=== PATIENT | female | born 1960 | race Caucasian/White ===

== ENCOUNTER → 2016-07-02 | Outpatient (CLI) | payer OTHER ==
[~2016-07-02] MED LIST: ALPR-412 PO; ATOR-22 PO; BUPR-79 PO; COEN1CAP17 PO; GABA-112 PO; HYDR25TA5 PO; HYOS1TAB PO; LANS30CA12 PO; MISCCAP80 PO; MULTTAB58 PO; NYSS5 PO; OMEGCAP2 PO; POTA20TA16 PO; PRED1SUS3 OPR; VITA1TAB4 PO
[2016-07-02 17:50] LABS: HEMATOCRIT 42.2 % (37-47); MEAN CELL VOLUME 87.2 fL (80-100); MEAN CORPUSCULAR HEMOGLOBIN 28.5 pg (25-34); MEAN CORPUSCULAR HGB CONC 32.7 g/dl (32-36); MEAN PLATELET VOLUME 10.2 fL (7.4-10.4); PLATELET COUNT 279 K/uL (130-400); RED BLOOD COUNT 4.84 M/uL (4.2-5.4); WHITE BLOOD COUNT 6.96 K/uL (4.8-10.8)
[2016-07-02 18:07] LABS: ALT/SGPT 30 U/L (12-78); AST/SGOT 17 U/L (15-37); BLOOD UREA NITROGEN 11 mg/dl (7-18); BUN/CREATININE RATIO 12.8 (10-20); CALCIUM 8.8 mg/dl (8.5-10.1); CARBON DIOXIDE 30 mmol/L (21-32); CHLORIDE 104 mmol/L (98-107); CREATININE 0.87 mg/dl (0.60-1.20); GLUCOSE 90 mg/dl (70-99); POTASSIUM 3.5 mmol/L (3.5-5.1); SODIUM 141 mmol/L (136-145)
[2016-07-02 18:18] LABS: ALKALINE PHOSPHATASE 69 U/L (45-117); CHOLESTEROL 205 mg/dl (0-200); CHOLESTEROL/HDL RATIO 3.7; HDL CHOLESTEROL 55 mg/dl; LDL CHOLESTEROL CALCULATED 124 mg/dl; THYROID STIMULATING HORMONE 0.162 uIu/ml (0.300-4.500); TRIGLYCERIDES 131 mg/dl (0-150); VERY LOW DENSITY LIPOPROT CALC 26 mg/dl
[2016-07-03 07:31] LABS: ESTIMATED AVERAGE GLUCOSE 123 mg/dl; HA1C FLAG Normal (Normal)
== END | disposition home or self-care (01) ==
LOC: C.LABBFT 15:54
PROVIDERS: ATTEND Internal Medicine
DX: E78.5 Hyperlipidemia, unspecified (principal); R73.01 Impaired fasting glucose; E03.9 Hypothyroidism, unspecified; I10 Essential (primary) hypertension

== ENCOUNTER → 2016-08-21 | Outpatient (CLI) | payer OTHER | END | disposition home or self-care (01) | LOC: C.LABBFT 10:09 | PROVIDERS: ATTEND Internal Medicine | DX: E03.9 Hypothyroidism, unspecified (principal) ==

== ENCOUNTER → 2016-12-19 | Outpatient (CLI) | payer OTHER ==
--- NOTE | 2016-12-19 15:49 | MAMMOGRAPHY REPORT ---
BILATERAL DIGITAL SCREENING MAMMOGRAM TOMOSYNTHESIS WITH CAD: 12/19/2016 CLINICAL HISTORY: Routine screening. TECHNIQUE: Breast tomosynthesis in addition to standard 2D mammography was performed. Current study was also evaluated with a Computer Aided Detection (CAD) system. COMPARISON: Comparison is made to exams dated: 11/21/2015 mammogram, 11/17/2014 mammogram, 11/11/2013 dianne mogram, 11/10/2012 mammogram, 10/01/2010 mammogram, and 10/10/2010 mammogram - [facility]. BREAST COMPOSITION: There are scattered areas of fibroglandular density in both breasts. FINDINGS: No suspicious masses, calcifications, or areas of architectural distortion are noted in ei ther breast. There has been no significant interval change compared to prior exams. IMPRESSION: ACR BI-RADS CATEGORY 1: NEGATIVE There is no mammographic evidence of malignancy. A 1 year screening mammogram is recommended. The pa tient will receive written notification of the results. Approximately 10% of breast cancers are not detected with mammography. A negative mammographic report should not delay biopsy if a clinically suggestive mass is present. Miriam Herring M.D. ah/:12/19/2016 15:00:07 Banquet Set Up Person: William FAUSTIN(Zane)(M), [facility] letter sent: Normal 1/2 BI-RADS Code: ACR BI-RADS Category 1: Negative
== END | disposition home or self-care (01) ==
LOC: C.MAMM 14:04
PROVIDERS: ATTEND Internal Medicine
DX: Z12.31 Encounter for screening mammogram for malignant neoplasm of breast (principal)

== ENCOUNTER → 2017-01-05 | Outpatient (CLI) | payer OTHER ==
[2017-01-05 17:32] LABS: BASO % 0.5 %; BASO ABS # 0.04 K/uL (0-0.2); COMPLETE YES; EOS % 2.3 %; HEMATOCRIT 42.1 % (37-47); IG% 0.4 %; LYMPH % 28.1 %; LYMPH ABS # 2.05 K/uL (1.2-3.4); MEAN CORPUSCULAR HEMOGLOBIN 28.6 pg (25-34); MEAN CORPUSCULAR HGB CONC 31.8 g/dl (32-36); MEAN PLATELET VOLUME 9.8 fL (7.4-10.4); MONO % 8.5 %; NEUT % 60.2 %; PLATELET COUNT 279 K/uL (130-400); RED BLOOD COUNT 4.68 M/uL (4.2-5.4)
[2017-01-05 17:41] LABS: ALT/SGPT 25 U/L (12-78); AST/SGOT 16 U/L (15-37); BLOOD UREA NITROGEN 10 mg/dl (7-18); BUN/CREATININE RATIO 11.7 (10-20); CALCIUM 8.8 mg/dl (8.5-10.1); CARBON DIOXIDE 28 mmol/L (21-32); CHLORIDE 105 mmol/L (98-107); CHOLESTEROL 207 mg/dl (0-200); CREATININE 0.88 mg/dl (0.60-1.20); GLUCOSE 89 mg/dl (70-99); POTASSIUM 3.6 mmol/L (3.5-5.1); SODIUM 141 mmol/L (136-145)
[2017-01-05 17:52] LABS: ALKALINE PHOSPHATASE 60 U/L (45-117); CHOLESTEROL/HDL RATIO 3.4; HDL CHOLESTEROL 61 mg/dl; LDL CHOLESTEROL CALCULATED 113 mg/dl; TRIGLYCERIDES 165 mg/dl (0-150); VERY LOW DENSITY LIPOPROT CALC 33 mg/dl
[2017-01-06 06:14] LABS: ESTIMATED AVERAGE GLUCOSE 126 mg/dl; HA1C FLAG Normal (Normal)
== END | disposition home or self-care (01) ==
LOC: C.LABBFT 13:59
PROVIDERS: ATTEND Internal Medicine
DX: E78.5 Hyperlipidemia, unspecified (principal); E03.9 Hypothyroidism, unspecified; R73.01 Impaired fasting glucose

== ENCOUNTER → 2017-02-16 | Outpatient (CLI) | payer OTHER | END | disposition home or self-care (01) | LOC: C.LABBFT 14:00 | PROVIDERS: ATTEND Internal Medicine | DX: E03.9 Hypothyroidism, unspecified (principal) ==

== ENCOUNTER → 2017-03-26 | Outpatient (CLI) | payer OTHER ==
--- NOTE | 2017-03-26 10:19 | DIAGNOSTIC IMAGING REPORT ---
SINUSES MIN 3 VIEWS ROUTINE CLINICAL HISTORY: 56 years-old Female presenting with J01.90 Acute [id number]. TECHNIQUE: 4 views of the sinuses were obtained. COMPARISON: 05/12/[address] from 2014. FINDINGS: No radiographic evidence of paranasal sinus or mastoid air cell opacity. Bony nasal septum midline. Bony orbits normal. Amalgam noted. IMPRESSION: No radiographic evidence of sinus opacification to suggest acute sinusitis. Electronically signed by: Justin Collier M.D. 03/26/2017 10:18 AM Dictated Date/Time: 03/26/2017 10:16 AM
== END | disposition home or self-care (01) ==
LOC: C.RAD1850 10:02
PROVIDERS: ATTEND Physician Assistant Medical
DX: J01.90 Acute sinusitis, unspecified (principal)

== ENCOUNTER → 2017-04-10 | Outpatient (CLI) | payer OTHER ==
[~2017-04-10] MED LIST changes: +POTA-639 PO; -POTA20TA16 PO; +SYN100 PO
== END | disposition home or self-care (01) ==
LOC: C.LABBFT 12:47
PROVIDERS: ATTEND Internal Medicine
DX: R19.7 Diarrhea, unspecified (principal)

== ENCOUNTER → 2017-04-14 | Outpatient (CLI) | payer OTHER ==
[2017-04-14 12:26] LABS: BLOOD UREA NITROGEN 9 mg/dl (7-18); CREATININE 0.93 mg/dl (0.60-1.20)
== END | disposition home or self-care (01) ==
LOC: C.LAB 10:08
PROVIDERS: ATTEND Internal Medicine
DX: I10 Essential (primary) hypertension (principal)

== ENCOUNTER 2017-06-01 07:14 | Emergency (ER) | payer OTHER ==
[~2017-06-01] VITALS: Ht 165.1 cm; Wt 68.4 kg
[~2017-06-01 07:14] MED LIST changes: -ALPR-412 PO; -ATOR-22 PO; -BUPR-79 PO; -COEN1CAP17 PO; -GABA-112 PO; -HYDR25TA5 PO; -HYOS1TAB PO; -LANS30CA12 PO; -MISCCAP80 PO; -MULTTAB58 PO; -OMEGCAP2 PO; -POTA-639 PO; -SYN100 PO; -VITA1TAB4 PO
[2017-06-01 07:16] VITALS: Ht 165.1 cm; Wt 68.4 kg
[2017-06-01] MEDS ORDERED: SYN100 PO (07:48)
[2017-06-01] MEDS ORDERED: ALBUT/IPRATROP 3MG/0.5MG NEB 3 ML VIAL INH STA (08:03)
[2017-06-01] MEDS ORDERED: SODIUM CHLORIDE 0.9% 1000ML 1,000 ML IV STA (08:03)
[2017-06-01] MEDS ORDERED: ONDANSETRON INJ 2 MG/ML 2 ML VIAL IV STA (08:03)
[2017-06-01 08:26] LABS: HEMATOCRIT 42.3 % (37-47); HEMOGLOBIN 14.1 g/dL (12.0-16.0); MEAN CELL VOLUME 87.8 fL (80-100); MEAN CORPUSCULAR HEMOGLOBIN 29.3 pg (25-34); MEAN CORPUSCULAR HGB CONC 33.3 g/dl (32-36); MEAN PLATELET VOLUME 9.7 fL (7.4-10.4); PLATELET COUNT 176 K/uL (130-400); RED CELL DISTRIBUTION WIDTH CV 13.1 % (11.5-14.5); RED CELL DISTRIBUTION WIDTH SD 42.1 fL (36.4-46.3); WHITE BLOOD COUNT 7.11 K/uL (4.8-10.8)
--- NOTE | 2017-06-01 08:38 | DIAGNOSTIC IMAGING REPORT ---
CHEST 2 VIEWS ROUTINE CLINICAL HISTORY: COUGH, FEVER COMPARISON STUDY: 06/16/2014 FINDINGS: The cardiac and mediastinal contours are normal. There is no evidence of focal pulmonary consolidation. There is no evidence of failure. No pleural effusions are visualized.[ IMPRESSION: No active disease in the chest. Electronically signed by: Jose Ng M.D. 06/01/2017 8:37 AM Dictated Date/Time: 06/01/2017 8:37 AM
[2017-06-01 08:43] LABS: CALCIUM 8.3 mg/dl (8.5-10.1); CREATININE 0.91 mg/dl (0.60-1.20); POTASSIUM 3.2 mmol/L (3.5-5.1)
[2017-06-01 08:52] LABS: INFLUENZA B ANTIGEN Neg for Influ B (NEG)
[2017-06-01 09:11] VITALS: BP 127/73; PULSE 63; TEMP 36.6; O2SAT 99
--- NOTE | 2017-06-01 09:13 | EMERGENCY ROOM VISIT NOTE ---
History First contact with patient: 07:25 Chief Complaint: FLU LIKE SX Stated Complaint: FEVER,CHILLS,SOB,COUGHING History of Present Illness Patient is a 56-year-old white female who presents emergency department for evaluation of influenza-like symptoms that started about 4-5 days ago. She reports that she developed generalized body and muscle aches, sore throat, fatigue and subjective fever and chills, cough and congestion last week. She reports that she is nauseous and anorexic but has not been vomiting. She was seen at a walk-in clinic the following day, was clinically diagnosed with pneumonia after having a negative influenza swab, and she was placed on Avelox. She reports that she is taking the antibiotics as prescribed, but her symptoms have been worsening. Today she felt a little dizzy with position changes. She has been taking Tylenol, and had some leftover cough syrup with codeine, with minimal relief of her symptoms. She reports that her has been ill with similar symptoms and is also here being evaluated today. She has been in contact with her grandchildren who were sick with strep and influenza. She is a former smoker. She reports a cough that is productive of scant sputum , but denies any chest pain or shortness of breath. She does have an albuterol inhaler at home but has not been taking it. Review of Systems Review of systems as per HPI. All other systems reviewed were negative. 10 systems reviewed. Past Medical/Surgical History Medical Problems: (1) Anxiety (2) Depressive Disorder Nec (3) Esophageal Reflux (4) Hyperlipidemia, Unspecified (5) Hypertension Nos Surgical Problems: (1) History of cataract extraction Electronic medical records are reviewed and summarized as above/below. See Problem List. Social History Smoking Status: Former Smoker Marital Status: Housing Status: lives with family Current/Historical Medications Scheduled Atorvastatin (Lipitor), 20 MG PO HS Bupropion (Wellbutrin Sr), 150 MG PO BID Coenzyme Q10 (Ubidecarenone) (Co Q 10), 100 MG PO QAM Gabapentin (Neurontin), 100 MG PO BID Hydrochlorothiazide (Hydrochlorothiazide), 25 MG PO QAM Lansoprazole (Prevacid), 30 MG PO QAM Levothyroxine Sodium (Synthroid), 100 MCG PO QAM Multiple Vitamin (Multivitamin), 1 TAB PO QAM [place]-3 Fatty Acids (Fish Oil), 1 CAP PO QAM Potassium Ext Rel (Klor-Con), 20 MEQ PO QAM Probiotic Product (Probiotic), 1 CAP PO QAM Vitamin E (Vitamin E), 400 INTUNIT PO QAM Scheduled PRN Alprazolam (Alprazolam), 0.25 MG PO HS PRN for Anxiety Hyoscyamine Sulfate (Levsin), 0.125 MG PO DAILY PRN for SPASM Physical Exam Vital Signs Date Time Temp Pulse Resp B/P (MAP) Pulse Ox O2 Delivery O2 Flow Rate FiO2 06/01/17 09:11 36.6 63 18 127/73 99 06/01/17 08:19 71 20 112/65 100 06/01/17 07:16 36.7 95 20 119/73 99 Room Air Physical Exam MENTAL STATUS: Patient is an ill although nontoxic appearing 56-year-old white female who is awake and alert and in no acute distress. HEAD: Atraumatic, without temporal or scalp tenderness. EYES: PERRL, EOMI, no discharge or injection. EARS: Tympanic membranes intact, not inflamed, have normal contour. External canals clear. NOSE: Nares patent, turbinates edematous and boggy with clear rhinorrhea. MOUTH: Mucous membranes moist, no lesions, tongue and gums appear normal. THROAT: No pharyngeal injection, exudates, or tonsillar hypertrophy. Airway is patent. NECK: Supple, nontender, no lymphadenopathy. HEART: Regular rate and rhythm without murmurs, ectopy, gallops, or rubs. LUNGS: Clear to auscultation and breath sounds equal, no wheezes, rales, or rhonchi. ABDOMEN: Bowel sounds are present. Abdomen is soft, nontender and nondistended. SKIN: Normal. NEUROLOGICAL: Sensory and motor functions grossly intact. Normal gait. Medical Decision & Procedures ER Provider Diagnostic Interpretation: CHEST 2 VIEWS ROUTINE CLINICAL HISTORY: COUGH, FEVER COMPARISON STUDY: 06/16/2014 FINDINGS: The cardiac and mediastinal contours are normal. There is no evidence of focal pulmonary consolidation. There is no evidence of failure. No pleural effusions are visualized. IMPRESSION: No active disease in the chest. Laboratory Results 06/01/17 08:12 06/01/17 08:12 Test 06/01/17 08:05 06/01/17 08:12 Influenza Type A Antigen POS for Influ A (NEG) Influenza Type B Antigen Neg for Influ B (NEG) Red Blood Count 4.82 M/uL (4.2-5.4) Mean Corpuscular Volume 87.8 fL (80-100) Mean Corpuscular Hemoglobin 29.3 pg (25-34) Mean Corpuscular Hemoglobin Concent 33.3 g/dl (32-36) RDW Standard Deviation 42.1 fL (36.4-46.3) RDW Coefficient of Variation 13.1 % (11.5-14.5) Mean Platelet Volume 9.7 fL (7.4-10.4) Anion Gap 9.0 mmol/L (3-11) Est Creatinine Clear Calc Drug Dose 60.6 ml/min Estimated GFR () 80.6 Estimated GFR (Non- 69.5 BUN/Creatinine Ratio 9.8 (10-20) Calcium Level 8.3 mg/dl (8.5-10.1) Medications Administered Medications (Trade) Dose Ordered Sig/Rosemary Route Start Time Stop Time Status Last Admin Dose Admin Sodium Chloride 1,000 ml @ 999 mls/hr Q1H1M STAT IV 06/01/17 08:03 06/01/17 09:03 DC 06/01/17 08:16 999 MLS/HR Ondansetron HCl (Zofran Inj) 4 mg NOW STAT IV 06/01/17 08:03 06/01/17 08:05 DC 06/01/17 08:16 4 MG Albuterol/ Ipratropium (Duoneb) 3 ml NOW STAT INH 06/01/17 08:03 06/01/17 08:05 DC 06/01/17 08:17 3 ML ED Course The patient was seen and examined as above. Old records were reviewed. IV lock was initiated she was hydrated with a liter of normal saline solution. She is medicated with Zofran 4 mg IV for nausea. She was given a DuoNeb treatment. CBC, BMP and influenza swab were collected. Chest x-ray was performed. Laboratory studies did not reveal a leukocytosis, no anemia or significant electrolyte imbalance which required correction. Influenza swab was positive for influenza A. Chest x-ray was clear. The patient was reassessed. Conservative care measures were discussed regarding the positive influenza swab. She has already been on antibiotic for several days and was encouraged to finish this. She reports that she has an albuterol inhaler at home and was advised to continue the inhaler for cough. She is outside of the window for which Tamiflu is appropriate. She was encouraged to follow-up with her primary care provider if her symptoms are not improving. Differential diagnoses also entertained included otitis media, sinusitis, bronchitis, pneumonia, COPD exacerbation, among others. Medical Decision See ED Course. Medication Reconcilliation Current Medication List: was personally reviewed by me Blood Pressure Screening Patient's blood pressure: Normal blood pressure Blood pressure disposition: Did not require urgent referral Impression Primary Impression: Influenza A Departure Information Referrals Clemente Enrique M.D. (PCP) Patient Instructions My [facility] Additional Instructions Finish your antibiotics as previously prescribed. Acetaminophen(Tylenol) may be used for fever or pain. Use 1000mg every six hours as needed. Avoid using more than 3000mg in a 24 hour period. (AND/OR) Ibuprofen(Motrin, Advil) may be used for fever or pain. Use 600mg every six hours as needed. Take with food. Avoid using more than 2400mg in a 24 hour period. Do not use 2400mg per day for more than three consecutive days without physician direction. Prolonged inappropriate use can lead to stomach upset or ulcers. Pseudoephedrine(Sudaphed): 30-60mg every 6 hours as needed for nasal congestion. Do not take this with other stimulant products or supplements. Guaifenesin (Mucinex) : Take 1200 mg every 12 hours as needed for nasal/chest congestion, to help thin secretions. Albuterol Inhaler: Take 2 puffs every 4 hours for the next 5-7 days, then as needed. Use inhalers as prescribed. Rest and drink plenty of fluids. Controlling your fever with Tylenol and Ibuprofen as above will make you feel better. Wash your hands after nose blowing, sneezing, or coughing. Most germs are spread through contact, therefore improper hygiene may result in your close contacts and loved ones becoming ill just like you. Continue current medications. Return to the ER for severe headache, neck stiffness, chest pain, difficulty breathing, fevers, vomiting, worsening of your condition, or as needed. Follow up with your primary physician this week for a recheck of your current condition.
--- NOTE | 2017-06-01 09:18 | EMERGENCY ROOM VISIT NOTE ---
ED Visit Note First contact with patient: 07:25 Staff note: I have reviewed the Patients chart and have discussed this case with my PA. I generally agree with the ED note and findings.
[2017-06-01] MEDS ORDERED: BUPR-79 PO (09:21)
[2017-06-01] MEDS ORDERED: GABA-112 PO (09:21)
[2017-06-01] MEDS ORDERED: LANS30CA12 PO (10:42)
[2017-06-01] MEDS ORDERED: POTA20TA16 PO (10:55)
[2017-06-01] MEDS ORDERED: HYOS1TAB PO (10:55)
[2017-06-01] MEDS ORDERED: VITA1TAB4 PO (10:56)
[2017-06-01] MEDS ORDERED: OMEGCAP2 PO (10:56)
[2017-06-01] MEDS ORDERED: ALPR-412 PO (10:56)
[2017-06-01] MEDS ORDERED: COEN1CAP17 PO (10:56)
[2017-06-01] MEDS ORDERED: HYDR25TA5 PO (10:56)
[2017-06-01] MEDS ORDERED: MULTTAB58 PO (10:56)
[2017-06-01] MEDS ORDERED: ATOR-22 PO (10:56)
[2017-06-01] MEDS ORDERED: MISCCAP80 PO (10:56)
== END 2017-06-01 09:30 | disposition home or self-care (01) ==
LOC: C.EDB 07:16
DX: J10.1 Influenza due to other identified influenza virus with other respiratory manifestations (principal); F41.9 Anxiety disorder, unspecified; F32.9 Major depressive disorder, single episode, unspecified; K21.9 Gastro-esophageal reflux disease without esophagitis; I10 Essential (primary) hypertension; E78.5 Hyperlipidemia, unspecified; Z87.891 Personal history of nicotine dependence; Z98.49 Cataract extraction status, unspecified eye

== ENCOUNTER → 2017-07-09 | Outpatient (CLI) | payer OTHER ==
[~2017-07-09] MED LIST changes: +ALPR-412 PO; +ATOR-22 PO; +BUPR-79 PO; +COEN1CAP17 PO; +GABA-112 PO; +HYDR25TA5 PO; +HYOS1TAB PO; +LANS30CA12 PO; +MISCCAP80 PO; +MULTTAB58 PO; -NYSS5 PO; +OMEGCAP2 PO; +POTA20TA16 PO; -PRED1SUS3 OPR; +SYN100 PO; +VITA1TAB4 PO
[2017-07-09 16:33] LABS: BASO % 1.3 %; BASO ABS # 0.08 K/uL (0-0.2); EOS ABS # 0.12 K/uL (0-0.5); HEMATOCRIT 39.9 % (37-47); HEMOGLOBIN 13.1 g/dL (12.0-16.0); IG# 0.01 K/uL (0.00-0.02); LYMPH % 34.4 %; LYMPH ABS # 2.06 K/uL (1.2-3.4); MEAN CELL VOLUME 88.1 fL (80-100); MEAN CORPUSCULAR HEMOGLOBIN 28.9 pg (25-34); MEAN CORPUSCULAR HGB CONC 32.8 g/dl (32-36); MONO ABS # 0.48 K/uL (0.11-0.59); NEUT % 54.1 %; NEUT ABS # 3.24 K/uL (1.4-6.5); PLATELET COUNT 237 K/uL (130-400); RED CELL DISTRIBUTION WIDTH CV 13.2 % (11.5-14.5); RED CELL DISTRIBUTION WIDTH SD 42.7 fL (36.4-46.3); WHITE BLOOD COUNT 5.99 K/uL (4.8-10.8)
[2017-07-09 16:50] LABS: ALBUMIN 3.4 gm/dl (3.4-5.0); ALT/SGPT 34 U/L (12-78); AST/SGOT 25 U/L (15-37); BLOOD UREA NITROGEN 10 mg/dl (7-18); CALCIUM 9.2 mg/dl (8.5-10.1); CARBON DIOXIDE 31 mmol/L (21-32); CREATININE 0.87 mg/dl (0.60-1.20); GLUCOSE 85 mg/dl (70-99); POTASSIUM 3.9 mmol/L (3.5-5.1); SODIUM 139 mmol/L (136-145)
[2017-07-09 17:01] LABS: ALKALINE PHOSPHATASE 67 U/L (45-117); CHOLESTEROL 135 mg/dl (0-200); LDL CHOLESTEROL CALCULATED 57 mg/dl; TOTAL PROTEIN 7.1 gm/dl (6.4-8.2)
[2017-07-10 06:29] LABS: HEMOGLOBIN A1C 5.9 % (4.5-5.6)
== END | disposition home or self-care (01) ==
LOC: C.LABBFT 13:46
PROVIDERS: ATTEND Internal Medicine
DX: E78.5 Hyperlipidemia, unspecified (principal); E03.9 Hypothyroidism, unspecified; R73.01 Impaired fasting glucose

== ENCOUNTER 2023-03-22 10:12 | Inpatient (IN) ==
[2023-03-22] MEDS ORDERED: SODIUM CHLORIDE 0.9% 500 ML IV STA (10:56)
[2023-03-22] MEDS ORDERED: MoRPHine SULFATE 4 MG/ML 1 ML CARP\\VIAL IV STA ×2 (11:04→13:24)
[2023-03-22] MEDS ORDERED: ONDANSETRON INJ 2 MG/ML 2 ML VIAL IV STA (11:04)
--- NOTE | 2023-03-22 11:07 | Emergency Department Note ---
Impression & Plan Abdominal pain Admission ED Provider Note HPI: History obtained from patient. The patient is a 62-year-old female who presents emergency department chief complaint of abdominal pain. Patient was seen here in the ED yesterday for diarrhea and some atypical chest discomfort, she was ultimately discharged home following an unremarkable workup. Patient states that last night she developed some abdominal pain in the upper abdomen that at times was relatively severe. Patient states she has had similar pain in the past but not quite to this degree/severity. Patient denies any vomiting, states that her diarrhea has actually improved since yesterday. She has stopped taking the Paxlovid and Bactrim that was prescribed to her over concern for the side effect of diarrhea. On arrival here to the ED the patient is hemodynamically stable, she is in no acute distress on my initial assessment, she is saturating well on room air, she is afebrile on arrival. ROS: - Per HPI Differential Diagnosis: Acute pancreatitis, acute gastritis, peptic ulcer disease, acute cholecystitis, choledocholithiasis, abdominal aortic dissection, acute coronary syndrome, amongst other potential pathologies. *Outpatient medications and allergy history reviewed. PE: General: Alert HEENT: Normocephalic, trachea midline Eyes: Extraocular eye movement is intact, no scleral erythema Pulmonary: Clear to auscultation bilaterally, no wheezing Cardio: Regular rate and rhythm GI: Abdomen is soft to palpation, there is mild tenderness over the epigastric area to palpation without guarding or rigidity : No suprapubic tenderness MSK: No evidence of trauma or malformation of the extremities, no edema Skin: No evidence of rash Neuro: Alert, no focal deficits Psychiatric: Cooperative INDEPENDENT INTERPRETATIONS: playground monitor: (As interpreted by myself): - An order was placed for continuous cardiac monitoring - Patient was noted to be in sinus rhythm with a rate of 70 EKG #1 (As interpreted by myself): Rate: 69 Rhythm: Normal sinus rhythm Intervals: Within normal limits ST changes: No ST elevation Time: 1109 EKG #2 (As interpreted by myself): Rate: 68 Rhythm: Normal sinus rhythm Intervals: Within normal limits ST changes: No ST elevation Time: 1423 Chest x-ray: (As interpreted by myself): No acute process Interventions provided in ED: -IV morphine, IV Zofran, GI cocktail Medical Decision Making: IV was established and lab work obtained, patient was placed on playground monitor. Lab work shows no leukocytosis, hemoglobin is stable at 11.8, platelet count is normal, CMP does not show any critical findings, no evidence of transaminitis, bilirubin is normal, lipase is 10, troponin is negative x 1. CT imaging of the abdomen pelvis was obtained that does not show any evidence of any acute abnormalities within the abdomen or pelvis. There is mention of kidney lesion of which the patient is informed and aware of, states she has an upcoming MRI of her kidney for further diagnostic evaluation. Despite morphine and Zofran here in the ED patient states she still has epigastric pain, she was given a GI cocktail and this unfortunately worsened her pain. Patient was therefore given another dose of morphine, she states her pain is improved but still present. Repeat EKG was obtained that again does not show any evidence of any acute ischemic changes per my interpretation. Repeat troponin remains negative. I discussed all the above findings with the patient, at this time given her ongoing pain she will be admitted for pain control to the hospitalist service. Case was discussed with the on-call midlevel provider, Jose Antonio Brito PA-C, and the patient was placed for admission to the hospitalist service for further care. Consultants/Discussions held with other healthcare providers: -Jose Antonio Brito PA-C, [facility] hospitalist service Disposition discussion held by myself with: -Patient Diagnosis: 1. Abdominal pain, acute, intractable 2. COVID-19 infection, subacute Disposition: Admission Wolfgang Grubbs DO Emergency Medicine Past Med/Surg History Medical History Encounter for pre-operative examination History of Helicobacter pylori infection Hx of Clostridium difficile infection Hx of diverticulitis of colon History of COVID-19 Hx of melanoma of skin Pulmonary embolism Sciatica COPD (chronic obstructive pulmonary disease) Mild reactive airways disease Allergic rhinitis Depression with anxiety Esophageal reflux Fibromyalgia Hypertension Irritable bowel syndrome Hypothyroidism Hyperlipidemia History of asthma Surgical History History of esophagogastroduodenoscopy (EGD) Hx of cataract extraction Hx of melanoma excision S/P dilation and curettage History of cryosurgery S/P laparoscopic procedure History of colonoscopy (10/12/19) S/P tonsillectomy S/P sinus surgery S/P SUMAN-BSO S/P laparoscopic cholecystectomy S/P appendectomy Family History Mother Diabetes Father Heart disease Other Asthma Cancer Gallbladder disease Hypertension Stroke Denies family history of Ovarian cancer Myocardial infarction Breast cancer Colorectal cancer Colonic polyp Uterine cancer Social History Smoking Status: Never smoker Tobacco Type: Cigarettes Age Started Using Tobacco: 18; Age Quit Using Tobacco: 58; Second Hand Exposure: Yes (in the past); Do You Dip or Chew Tobacco: No; Hx Alcohol Use: No Hx Substance Use: No Preferred Language: Yoruba Communication Ability: Effective Visual Impairment: No Limitations Hearing Ability: Normal Vice President [employer] Required: No Beliefs That Will Affect Care: None marital status: Current Living Situation: Spouse current occupational status: disabled Feels Safe at Home: Yes Childhood Exposure to Second-Hand Smoke: Yes Dental Care, Regularly: Yes Seatbelt Use: always Sunscreen Use: Yes Do you think of yourself as: straight/heterosexual Sexual Activity: has been sexually active within the last 12 months Assistive Devices: Denture - Upper Allergies Allergies Allergy/AdvReac Type Severity Reaction Status Date / Time vilanterol Allergy Severe Swelling Verified 03/19/23 15:43 [From Breo Ellipta] and GI Upset bacitracin Allergy Intermediate Hives Verified 03/19/23 15:43 [From Neosporin ([id number])] neomycin Allergy Intermediate Hives Verified 03/19/23 15:43 [From Neosporin ([id number])] polymyxin B Allergy Intermediate Hives Verified 03/19/23 15:43 [From Neosporin ([id number])] olmesartan AdvReac Intermediate Diarrhea Verified 03/19/23 15:43 amoxicillin [From Augmentin] AdvReac Unknown CAUSED Verified 03/19/23 15:43 C-DIFF clavulanic acid AdvReac Unknown CAUSED Verified 03/19/23 15:43 [From Augmentin] C-DIFF Home Meds Home Medications Medication Instructions Recorded Confirmed coenzyme Q10 100 mg tablet 100 mg PO QAM 09/06/18 03/22/23 vitamin E 268 mg (400 unit) capsule 400 unit PO QAM 09/06/18 03/21/23 lactobacillus combination no.4 3 3,000 mmu cells PO QAM 02/16/19 03/22/23 billion cell capsule (Probiotic) azelastine 205.5 mcg (0.15 %) 2 spray intranasal BID 04/12/19 03/22/23 nasal spray ascorbate calcium (vitamin C) 500 1,000 mg PO QAM PRN Other 08/06/20 03/22/23 mg tablet multivitamin (Daily Multi-Vitamin 1 tab PO QAM 08/06/20 03/22/23 tablet) budesonide-formoterol HFA 80 2 inh inhalation BID 06/24/22 03/22/23 mcg-4.5 mcg/actuation aerosol inhaler (Symbicort) omega-3 fatty acids 1,000 mg 1,000 mg PO QAM 06/24/22 03/22/23 capsule hydrochlorothiazide 25 mg tablet 25 mg PO QAM 12/11/22 03/22/23 bismuth subsalicylate 262 mg 524 mg PO QID PRN UPSET STOMACH 12/29/22 03/22/23 tablet (Pepto-Bismol) levocetirizine 5 mg tablet 5 mg PO QAM 02/13/23 03/22/23 levothyroxine 88 mcg tablet 88 mcg PO QAM 02/13/23 03/22/23 potassium chloride 20 mEq 30 meq PO QAM 02/13/23 03/21/23 tablet,extended release(part/cryst) (Klor-Con M) propranolol 60 mg capsule,24 60 mg PO HS 02/13/23 03/22/23 hr,extended release mupirocin 2 % topical ointment 1 applic topical BID PRN Other 03/21/23 03/22/23 tamsulosin 0.4 mg capsule 0.4 mg PO .AFTERNOON 03/21/23 03/22/23 amitriptyline 10 mg tablet 10 mg PO HS 03/22/23 03/22/23 celecoxib 100 mg capsule 100 mg PO BID PRN Pain 03/22/23 03/22/23 cholestyramine-aspartame 4 gram 1 ea PO TID 03/22/23 03/22/23 oral powder (Cholestyramine Light) Previous Rx's Medication Instructions Recorded inhalational spacing device #1 ea 09/22/18 (Vortex Holding Chamber) albuterol sulfate 90 mcg/actuation 2 puff inhalation Q4H PRN 05/19/22 aerosol inhaler (Ventolin HFA) Shortness Of Breath Or Wheezing #18 grams bupropion HCl 150 mg tablet,12 hr 150 mg PO BID #180 ea 07/11/22 sustained-release fluticasone propionate 50 1 spray intranasal DAILY 30 days 07/22/22 mcg/actuation nasal #48 grams spray,suspension pantoprazole 40 mg tablet,delayed 40 mg PO BID #180 tabs 09/09/22 release atorvastatin 20 mg tablet 20 mg PO HS #90 tabs 11/13/22 estradiol 0.01% (0.1 mg/gram) 0.25 appful vaginal DAILY #42.5 02/12/23 vaginal cream grams gabapentin 100 mg capsule 100 mg PO TID #270 caps 03/09/23 molnupiravir 200 mg capsule (EUA) 800 mg (4 x 200 mg) PO Q12H 5 days 03/19/23 (Lagevrio) #40 caps sulfamethoxazole 800 1 tab PO BID 10 days #20 tabs 03/19/23 mg-trimethoprim 160 mg tablet (Bactrim DS) Results & Data (ED) Vital Signs Vital Signs - 24 hr 03/22/23 10:21 03/22/23 12:00 03/22/23 12:11 Temperature 36.8 C Temperature Source Temporal Artery Scan Pulse Rate 74 64 Pulse Rate [Apical] 66 Respiratory Rate 18 18 Blood Pressure 128/68 Blood Pressure [Right Arm] 131/71 Blood Pressure Mean 88 Blood Pressure Mean [Right Arm] 91 Pulse Oximetry 96 99 Oxygen Delivery Method Room Air Room Air Sepsis Recent Fever Within 48 Hours No Sepsis New/Unexplained Change in Mental Status No Sepsis Action Taken by Nursing No Action Required Laboratory Data 03/22/23 11:18 03/22/23 11:18 Lab Results 03/22/23 03/22/23 Range/Units 11:18 14:24 WBC 6.90 (4.8-10.8) K/ul RBC 4.27 (4.20-5.40) M/uL Hgb 11.8 L (12.0-16.0) g/dl Hct 37.3 (37.0-47.0) % MCV 87.4 (80.0-100.0) fL MCH 27.6 (25.0-34.0) pg MCHC 31.6 L (32.0-36.0) g/dL RDW Std Deviation 43.7 (36.4-46.3) fL RDW Coeff of Sánchez 13.6 (11.5-14.5) % Plt Count 269 (130-400) K/uL MPV 9.5 (9.4-12.4) fL Immature Gran % (Auto) 0.4 % Neut % (Auto) 65.9 % Lymph % (Auto) 25.7 % [place] % (Auto) 5.9 % Eos % (Auto) 1.4 % Baso % (Auto) 0.7 % Neut # (Auto) 4.54 (1.40-6.50) K/uL Lymph # (Auto) 1.77 (1.20-3.40) K/uL [place] # (Auto) 0.41 (0.11-0.59) K/uL Eos # (Auto) 0.10 (0.00-0.50) K/uL Baso # (Auto) 0.05 (0.00-0.20) K/uL Immature Gran # (Auto) 0.03 (0.01-0.20) K/uL PT 11.5 (9.0-12.0) Seconds INR 1.1 (0.9-1.1) Sodium 140 (136-145) mmol/L Potassium 3.6 (3.5-5.1) mmol/L Chloride 105 (98-107) mmol/L Carbon Dioxide 29 (21-32) mmol/L Anion Gap 6 (3-11) BUN 6 (6-23) mg/dl Creatinine 0.70 (0.6-1.2) mg/dl Est Cr Clr Drug Dosing 82.9 ml/min Est GFR ( Amer) 106.1 ml/min Est GFR (Non-Af Amer) 91.6 ml/min BUN/Creatinine Ratio 8.6 L (10-20) Glucose 113 H (70-99(Fasting)) mg/dl Calcium 8.8 (8.6-10.3) mg/dl Total Bilirubin 0.4 (0.2-1.0) mg/dl AST 17 (13-39) U/L ALT 17 (7-52) U/L Alkaline Phosphatase 58 (34-104) U/L Troponin I High Sens 2.7 3.6 (0-14) pg/ml Total Protein 6.9 (6.0-8.3) gm/dl Albumin 3.7 (3.4-5.0) gm/dl Globulin 3.2 (2.5-4.0) gm/dl Albumin/Globulin Ratio 1.2 (0.9-2) Lipase 10 L (11-82) U/L Administered Medications Discontinued Medications Al Hydrox/Mg Hydrox/Simethicone (Aluminum/Magnesium Susp 30 Ml Udc) 30 ml PO NOW STA Stop: 03/22/23 13:25 Last Admin: 03/22/23 13:36 Dose: 30 ml Documented By: JANI Sodium Chloride (Nss) 500 mls @ 999 mls/hr IV .Q31M STA Stop: 03/22/23 11:26 Last Infusion: 03/22/23 12:08 Dose: Infused Documented By: Admin: 03/22/23 11:15 Dose: 999 mls/hr Documented By: JANI Ioversol (Optiray 320 500ml) 81 ml IV ONCE ONE Stop: 03/22/23 12:42 Last Admin: 03/22/23 12:42 Dose: 81 ml Documented By: CARLOS A Morphine Sulfate (Morphine Sulfate 4 Mg/Ml 1 Ml Carp\Vial) 4 mg IV NOW STA Stop: 03/22/23 11:05 Last Admin: 03/22/23 11:16 Dose: 4 mg Documented By: JANI Morphine Sulfate (Morphine Sulfate 4 Mg/Ml 1 Ml Carp\Vial) 4 mg IV NOW STA Stop: 03/22/23 13:25 Last Admin: 03/22/23 13:36 Dose: 4 mg Documented By: JANI Ondansetron HCl (Ondansetron Inj 2 Mg/Ml 2 Ml Vial) 4 mg IV NOW STA Stop: 03/22/23 11:05 Last Admin: 03/22/23 11:15 Dose: 4 mg Documented By: JANI Ondansetron HCl (Ondansetron Home Pack 4mg Od Tab) 1 each PO NOW ONE Stop: 03/22/23 13:18 Last Admin: 03/22/23 14:27 Dose: Not Given Documented By: JANI Imaging Data Radiologist's Impression: Chest X-Ray 03/22/23 10:56 XR chest 1V portable HISTORY: 62 years-old Female Chest pain, nonspecific COMPARISON: 03/21/2023 TECHNIQUE: AP view of the chest FINDINGS: Cardiomediastinal and hilar silhouettes are unchanged. Atherosclerosis of the aorta. No pneumothorax, pleural effusion or airspace consolidation. Bones appear grossly intact. Degenerative changes of the shoulders and spine. IMPRESSION: No acute process. ACT 112: Negative or not required by law. The above report was generated using voice recognition software. It may contain grammatical, syntax or spelling errors. Electronically signed by: Chu Hubbard M.D. 03/22/2023 11:46 AM Abdomen/Pelvis CT 03/22/23 10:[address] WITH IV CONTRAST CT DOSE: 1023.84 mGy.cm HISTORY: Acute onset abdominal pain with diarrhea abd pain, diarrhea TECHNIQUE: Multiaxial CT images of the abdomen and pelvis were performed following the IV administration of 81 cc of Optiray, A dose lowering technique was utilized adhering to the principles of ALARA. COMPARISON STUDY: 02/13/2023 FINDINGS: Clear lung bases. No free air. Unremarkable spleen, pancreas and adrenal glands. Cholecystectomy with persistent biliary ductal dilation. The common bile duct measures 1.4 cm. Patent portal vein. No hepatic mass lesions. Mild cortical thinning of the kidneys. 7 mm nonobstructing calculus in the inferior pole left kidney. No ureteral calculi or hydronephrosis. Indeterminate 1.1 cm lesion of the superior pole right kidney again noted with Hounsfield unit of 120. Decompressed urinary bladder with wall thickening. Hysterectomy. Pelvic floor relaxation. Atherosclerosis of the aorta. No lymphadenopathy. No bowel obstruction or bowel wall thickening. Colonic diverticulosis. Appendectomy. The more caudal soft tissues. No acute fracture. IMPRESSION: 1. No acute intra-abdominal or intrapelvic abnormality. 2. 1.1 cm indeterminate lesion of the right kidney again noted, possibly a small renal cell carcinoma. 3. Nonobstructing left nephrolithiasis. 4. Colonic diverticulosis. 5. Additional findings as above. ACT 112: Negative or not required by law. The above report was generated using voice recognition software. It may contain grammatical, syntax or spelling errors. Electronically signed by: Chu Hubbard M.D. 03/22/2023 1:00 PM Discharge Plan Visit Data Chief Complaint: Abdominal Pain Stated Complaint: ABDOMINAL PAIN, NAUSEA ED Provider: Wolfgang Grubbs Discharge Problem: Abdominal pain Patient Disposition: Home - Self-Care Condition: Good Discharge Instructions Radha/Other Patient Handouts: Abdominal Pain Activity Restrictions/Additional Instructions: Please follow-up with your primary care doctor in 2 to 3 days for reassessment. Please return to the emergency room if you have any new or worsening symptoms. Forms Stand Alone Forms: My [facility], Important Visit Information Prescriptions Prescriptions: No Action albuterol sulfate [Ventolin HFA] 90 mcg/actuation HFA aerosol inhaler 2 puff inhalation Q4H PRN (Reason: Shortness Of Breath Or Wheezing) Qty: 18 5RF bupropion HCl 150 mg tablet sustained-release 12 hr 150 mg PO BID Qty: 180 3RF fluticasone propionate 50 mcg/actuation spray,suspension 1 spray intranasal DAILY 30 Days Qty: 48 3RF Rx Instructions: 1 SPRAY IN EACH NOSTRIL DAILY pantoprazole 40 mg tablet,delayed release (DR/EC) 40 mg PO BID Qty: 180 3RF atorvastatin 20 mg tablet 20 mg PO HS Qty: 90 3RF estradiol 0.01 % (0.1 mg/gram) cream 0.25 appful vaginal DAILY Qty: 42.5 2RF Rx Instructions: Use daily for 14 days; use three times a week for 14 days; use 2-3 times a week after gabapentin 100 mg capsule 100 mg PO TID Qty: 270 3RF Lagevrio (EUA) 200 mg capsule 800 mg PO Q12H 5 Days Qty: 40 0RF sulfamethoxazole-trimethoprim [Bactrim DS] 800-160 mg tablet 1 tab PO BID 10 Days Qty: 20 0RF hydrochlorothiazide 25 mg tablet 25 mg PO QAM (DME) Vortex Holding Chamber spacer See Dose Instructions .ROUTE .MEDSUPPLY Qty: 1 0RF Dose Instruction: As directed Rx Instructions: As directed ascorbate calcium (vitamin C) 500 mg tablet 1,000 mg PO QAM PRN (Reason: Other) multivitamin [Daily Multi-Vitamin] Tablet 1 tab PO QAM vitamin E 400 unit Capsule 400 unit PO QAM coenzyme Q10 100 mg Tablet 100 mg PO QAM Probiotic 3 billion cell capsule 3,000 mmu cells PO QAM Rx Instructions: with meals azelastine 0.15 % (205.5 mcg) spray,non-aerosol 2 spray INTNAS BID Rx Instructions: administer into each nostril propranolol 60 mg capsule,extended release 24 hr 60 mg PO HS potassium chloride [Klor-Con M20] 20 mEq tablet,ER particles/crystals 30 meq PO QAM levothyroxine 88 mcg tablet 88 mcg PO QAM levocetirizine 5 mg tablet 5 mg PO QAM Rx Instructions: TAKE 1 TABLET BY MOUTH EVERY DAY FOR ALLERGY SYMPTOMS amitriptyline 10 mg tablet 10 mg PO HS Rx Instructions: take 3 hours or more after welbutrin celecoxib 100 mg capsule 100 mg PO BID PRN (Reason: Pain) Cholestyramine Light 4 gram powder 1 ea PO TID omega-3 fatty acids 1,000 mg Capsule 1,000 mg PO QAM budesonide-formoterol [Symbicort] 80-4.5 mcg/actuation HFA aerosol inhaler 2 inh inhalation BID Hold Instructions: Gastritis Rx Instructions: INHALE 2 PUFFS INTO THE LUNGS TWICE A DAY Pepto-Bismol 262 mg Tablet 524 mg PO QID PRN (Reason: UPSET STOMACH) mupirocin 2 % ointment 1 applic TOPICAL BID PRN (Reason: Other) tamsulosin 0.4 mg capsule 0.4 mg PO .AFTERNOON Referrals Referrals: Hansel Harris DO [Primary Care Provider] - Discharge Problem: Abdominal pain Qualifiers: Abdominal location: upper abdomen, unspecified Qualified Code(s): R10.10 - Upper abdominal pain, unspecified
[2023-03-22 11:37] LABS: Basophils # (auto) 0.05 K/uL (0.00-0.20); Basophils % (auto) 0.7 %; Eosinophils % (auto) 1.4 %; Hematocrit (blood only) 37.3 % (37.0-47.0); Hemoglobin 11.8 g/dl (12.0-16.0); Immature Granulocytes # (auto) 0.03 K/uL (0.01-0.20); Immature Granulocytes % (auto) 0.4 %; Lymphocytes # (auto) 1.77 K/uL (1.20-3.40); Lymphocytes % (auto) 25.7 %; Mean Corpuscular Hemoglobin 27.6 pg (25.0-34.0); Mean Corpuscular Hgb Conc 31.6 g/dL (32.0-36.0); Mean Corpuscular Volume 87.4 fL (80.0-100.0); Mean Platelet Volume 9.5 fL (9.4-12.4); Monocytes # (auto) 0.41 K/uL (0.11-0.59); Monocytes % (auto) 5.9 %; Neutrophils # (auto) 4.54 K/uL (1.40-6.50); Neutrophils % (auto) 65.9 %; Platelet Count 269 K/uL (130-400); RDW Coefficient of Variation 13.6 % (11.5-14.5); RDW Standard Deviation 43.7 fL (36.4-46.3); Red Blood Count 4.27 M/uL (4.20-5.40)
--- NOTE | 2023-03-22 11:47 | XRay Report ---
XR chest 1V portable HISTORY: 62 years-old Female Chest pain, nonspecific COMPARISON: 03/21/2023 TECHNIQUE: AP view of the chest FINDINGS: Cardiomediastinal and hilar silhouettes are unchanged. Atherosclerosis of the aorta. No pneumothorax, pleural effusion or airspace consolidation. Bones appear grossly intact. Degenerative changes of the shoulders and spine. IMPRESSION: No acute process. ACT 112: Negative or not required by law. The above report was generated using voice recognition software. It may contain grammatical, syntax o r spelling errors. Electronically signed by: Chu Hubbard M.D. 03/22/2023 11:46 AM
[2023-03-22 11:53] LABS: Albumin Globulin Ratio 1.2 (0.9-2); Albumin Level 3.7 gm/dl (3.4-5.0); BUN Creatinine Ratio 8.6 (10-20); Bilirubin,Total 0.4 mg/dl (0.2-1.0); Calcium 8.8 mg/dl (8.6-10.3); Creatinine Clr Calc Pharmacy 82.9 ml/min; Est GFR (African American) 106.1 ml/min; Est GFR (Non-African American) 91.6 ml/min; Globulin 3.2 gm/dl (2.5-4.0); Potassium 3.6 mmol/L (3.5-5.1); Total Protein 6.9 gm/dl (6.0-8.3)
[2023-03-22 11:58] LABS: Troponin I High Sensitivity 2.7 pg/ml (0-14)
[2023-03-22 12:02] LABS: INR 1.1 (0.9-1.1); Prothrombin Time 11.5 Seconds (9.0-12.0)
[2023-03-22] MEDS ORDERED: OPTIRAY 320 500ml IV ONE (12:41)
--- NOTE | 2023-03-22 12:47 | Electrocardiogram Report ---
Test Reason : Blood Pressure : / mmHG Vent. Rate : 069 BPM Atrial Rate : 069 BPM P-R Int : 174 ms QRS Dur : 090 ms QT Int : 402 ms P-R-T Axes : 062 048 048 degrees QTc Int : 430 ms Normal sinus rhythm Normal ECG When compared with ECG of 21-MAR-2023 11:07, No significant change was found Confirmed by Jhon Gomes ([id number]) on 03/22/2023 12:47:38 PM Referred By: REFERRED SELF Confirmed By:Rich Gomes
--- NOTE | 2023-03-22 13:03 | CT Scan Report ---
ABDOMEN AND PELVIS CT WITH IV CONTRAST CT DOSE: 1023.84 mGy.cm HISTORY: Acute onset abdominal pain with diarrhea abd pain, diarrhea TECHNIQUE: Multiaxial CT images of the abdomen and pelvis were performed following the IV administrat ion of 81 cc of Optiray, A dose lowering technique was utilized adhering to the principles of ALARA. COMPARISON STUDY: 02/13/2023 FINDINGS: Clear lung bases. No free air. Unremarkable spleen, pancreas and adrenal glands. Cholecyste ctomy with persistent biliary ductal dilation. The common bile duct measures 1.4 cm. Patent portal ve in. No hepatic mass lesions. Mild cortical thinning of the kidneys. 7 mm nonobstructing calculus in the inferior pole left kidney. No ureteral calculi or hydronephrosis. Indeterminate 1.1 cm lesion of the superior pole right kidney again noted with Hounsfield unit of 120. Decompressed urinary bladder with wall thickening. Hysterec flori. Pelvic floor relaxation. Atherosclerosis of the aorta. No lymphadenopathy. No bowel obstruction or bowel wall thickening. Colonic diverticulosis. Appendectomy. The more caudal soft tissues. No acute fracture. IMPRESSION: 1. No acute intra-abdominal or intrapelvic abnormality. 2. 1.1 cm indeterminate lesion of the right kidney again noted, possibly a small renal cell carcinoma . 3. Nonobstructing left nephrolithiasis. 4. Colonic diverticulosis. 5. Additional findings as above. ACT 112: Negative or not required by law. The above report was generated using voice recognition software. It may contain grammatical, syntax o r spelling errors. Electronically signed by: Chu Hubbard M.D. 03/22/2023 1:00 PM
[2023-03-22] MEDS ORDERED: ONDANSETRON HOME PACK 4MG OD TAB PO ONE (13:17)
[2023-03-22] MEDS ORDERED: ALUMINUM/MAGNESIUM SUSP 30 ML UDC PO STA (13:24)
--- NOTE | 2023-03-22 15:17 | History & Physical Report ---
Date of Service March 22, 2023 Assessment & Plan (1) Epigastric pain: Plan: Abdominal pain, history of H pylori, suspect gastritis Abdominal pain with recent diarrhea and atypical chest discomfort negative cardiac workup 03/21. Was diagnosed with COVID 03/19 Diarrhea gradually improving compared to yesterday. Does not liquid, low suspicion for C. difficile. No chest pain today, all epigastric/stomach pain CTA/P with contrast: No acute intra-abdominal or intrapelvic abnormality, right kidney lesion noted pending outpatient follow-up, not expecting left nephrolithiasis noted, diverticulosis without diverticulitis. Patient with worsened abdominal pain chest x-ray without acute findings With worsened abdominal pain and epigastric discomfort since starting Bactrim 4 days ago and Lagevrio.nauseous with GI cocktail Patient is pending testing for H. pylori and a urea breath test, having recommended to discontinue PPI however has not increased epigastric pain and has been taking this orally for the last few days. Acutely suspect she has worsened medication induced gastritis in the setting of COVID/bactrim/lagevrio use. As she is already been on a PPI will continue twice daily for symptomatic relief although this would ideally be held for at least a week before breath testing is performed. Will treat with GI cocktail as tolerated, antiemetics, PPI, Zofran, and supportive care at this time. If continued pain and intolerance to p.o. --> EGD -Low suspicion for upper GI bleed. Prior endoscopy did not show evidence of bleeding/ulcers. Her BUN is negative and she has not had melena/hematochezia. Hgb trended. No AFBIÁN, no hyperkalemia, no CVA tenderness (2) COVID-19: Plan: No hypoxia, diarrhea improving, dry cough improving Lagevrio held due to gastritis/intolerance -No steroids indicated Supportive (3) Arthritis of hip: Plan: Arthritis pending outpatient follow-up for potential replacement. Also has associated bilateral tendinopathy of the lower extremities, suspected to be due to recurrent fluoroquinolone use for sinusitis. Supportive care, no fluoroquinolone use (4) Mild reactive airways disease: Plan: Albuterol as noted, no wheezing on admission (5) COPD (chronic obstructive pulmonary disease): Plan: Continue home inhalers, albuterol as needed, no acute exacerbation noted (6) Irritable bowel syndrome: Plan: FODMAP diet, gastritis treatment as above, diarrhea improved (7) Fibromyalgia: Plan: Continue bupropion, amitriptyline (8) Depression with anxiety: Plan: Bupropion, amitriptyline as noted Plan DVT prophylaxis: Lovenox, increased risk with COVID Diet: Full liquids, advance to regular/FODMAP as tolerated. Disposition: Medical/surgical CODE STATUS: Full code History of Present Illness Primary Care Provider: Hasnel Harris DO Awa is a 62-year-old female with a past medical history of abdominal pain who presented to the ER with diarrhea and chest discomfort yesterday and discharged home after normal workup. Positive COVID in ER. Pain did go down her arms, workup yesterday was OK. went home, abdominal/epigastric pain continued. Morphine zofran GI cocktail worsened her symptoms. Pt was diaphoretic and with pain, was recommended for ER evauation Fever a few days ago, this has improved. No shortness of breath. No chest pain. "Would be OK if I wasn't so nauseas and stomach wasn't so bad." Cough is improving, sinus congestion is improving. SInus with yellow mucous which is improved slightly today. Has been on bactrim for sinusitis for 4 days, did not take today. Urea breath test. Had h pylori years ago. Hx c diff years ago. She has had ongoing issues with gastritis in the past few weeks and is pending H. pylori urea breath testing as an outpatient.Had antigen testing several months ago which was negative. She feels taking medicines upsets her stomach and she will go home if she could keep her medications down but has not been able to. Denies bright red blood per rectum and melena. No lightheadedness or dizziness. She denies a history of GI bleed. She has had an endoscopy last 12/2022 which showed polyps otherwise normal stomach and duodenum. Last saw GI 02/2023 and at that type was noted to have abdominal discomfort and bloating chronically with history of IBS, repeat EGD with antral biopsies were pending given history of H. pylori and was continued on IBS treatment/diet. Patient was recommended to discontinue Protonix and discussed that this could decrease the yield of H. pylori testing however she has taken this and notes that she has tolerable symptoms without. No chest pain, chest pressure today. No SoB. denies wheezing. Medical History: Reviewed Medications: Reviewed Surgical History: Reviewed Family history: Reviewed Allergies: Reviewed Social History: NO tobacco or etoh Code Status: FUll Allergies Allergy/AdvReac Type Severity Reaction Status Date / Time vilanterol Allergy Severe Swelling Verified 03/19/23 15:43 [From Breo Ellipta] and GI Upset bacitracin Allergy Intermediate Hives Verified 03/19/23 15:43 [From Neosporin ([id number])] neomycin Allergy Intermediate Hives Verified 03/19/23 15:43 [From Neosporin ([id number])] polymyxin B Allergy Intermediate Hives Verified 03/19/23 15:43 [From Neosporin ([id number])] olmesartan AdvReac Intermediate Diarrhea Verified 03/19/23 15:43 amoxicillin [From Augmentin] AdvReac Unknown CAUSED Verified 03/19/23 15:43 C-DIFF clavulanic acid AdvReac Unknown CAUSED Verified 03/19/23 15:43 [From Augmentin] C-DIFF levofloxacin AdvReac tendinopath Verified 03/22/23 15:54 y Home Medications Medication Instructions Recorded Confirmed Type coenzyme Q10 100 mg tablet 100 mg PO QAM 09/06/18 03/22/23 History vitamin E 268 mg (400 unit) capsule 400 unit PO QAM 09/06/18 03/22/23 History inhalational spacing device #1 ea 09/22/18 03/22/23 Rx (Vortex Holding Chamber) lactobacillus combination no.4 3 3,000 mmu cells PO QAM 02/16/19 03/22/23 History billion cell capsule (Probiotic) azelastine 205.5 mcg (0.15 %) 2 spray intranasal BID 04/12/19 03/22/23 History nasal spray ascorbate calcium (vitamin C) 500 1,000 mg PO QAM PRN Other 08/06/20 03/22/23 History mg tablet multivitamin (Daily Multi-Vitamin 1 tab PO QAM 08/06/20 03/22/23 History tablet) albuterol sulfate 90 mcg/actuation 2 puff inhalation Q4H PRN 05/19/22 03/22/23 Rx aerosol inhaler (Ventolin HFA) Shortness Of Breath Or Wheezing #18 grams budesonide-formoterol HFA 80 2 inh inhalation BID 06/24/22 03/22/23 History mcg-4.5 mcg/actuation aerosol inhaler (Symbicort) omega-3 fatty acids 1,000 mg 1,000 mg PO QAM 06/24/22 03/22/23 History capsule bupropion HCl 150 mg tablet,12 hr 150 mg PO BID #180 ea 07/11/22 03/22/23 Rx sustained-release fluticasone propionate 50 1 spray intranasal DAILY 30 days 07/22/22 03/22/23 Rx mcg/actuation nasal #48 grams spray,suspension pantoprazole 40 mg tablet,delayed 40 mg PO BID #180 tabs 09/09/22 03/22/23 Rx release atorvastatin 20 mg tablet 20 mg PO HS #90 tabs 11/13/22 03/22/23 Rx hydrochlorothiazide 25 mg tablet 25 mg PO QAM 12/11/22 03/22/23 History bismuth subsalicylate 262 mg 524 mg PO QID PRN UPSET STOMACH 12/29/22 03/22/23 History tablet (Pepto-Bismol) estradiol 0.01% (0.1 mg/gram) 0.25 appful vaginal DAILY #42.5 02/12/23 03/22/23 Rx vaginal cream grams levocetirizine 5 mg tablet 5 mg PO QAM 02/13/23 03/22/23 History levothyroxine 88 mcg tablet 88 mcg PO QAM 02/13/23 03/22/23 History potassium chloride 20 mEq 30 meq PO QAM 02/13/23 03/22/23 History tablet,extended release(part/cryst) (Klor-Con M) propranolol 60 mg capsule,24 60 mg PO HS 02/13/23 03/22/23 History hr,extended release gabapentin 100 mg capsule 100 mg PO TID #270 caps 03/09/23 03/22/23 Rx molnupiravir 200 mg capsule (EUA) 800 mg (4 x 200 mg) PO Q12H 5 days 03/19/23 03/22/23 Rx (Lagevrio) #40 caps sulfamethoxazole 800 1 tab PO BID 10 days #20 tabs 03/19/23 03/22/23 Rx mg-trimethoprim 160 mg tablet (Bactrim DS) mupirocin 2 % topical ointment 1 applic topical BID PRN Other 03/21/23 03/22/23 History tamsulosin 0.4 mg capsule 0.4 mg PO .AFTERNOON 03/21/23 03/22/23 History amitriptyline 10 mg tablet 10 mg PO HS 03/22/23 03/22/23 History celecoxib 100 mg capsule 100 mg PO BID PRN Pain 03/22/23 03/22/23 History cholestyramine-aspartame 4 gram 1 ea PO TID 03/22/23 03/22/23 History oral powder (Cholestyramine Light) Past Med/Surg History Medical History Encounter for pre-operative examination History of Helicobacter pylori infection Hx of Clostridium difficile infection Hx of diverticulitis of colon History of COVID-19 Hx of melanoma of skin Pulmonary embolism Sciatica COPD (chronic obstructive pulmonary disease) Mild reactive airways disease Allergic rhinitis Depression with anxiety Esophageal reflux Fibromyalgia Hypertension Irritable bowel syndrome Hypothyroidism Hyperlipidemia History of asthma Surgical History History of esophagogastroduodenoscopy (EGD) Hx of cataract extraction Hx of melanoma excision S/P dilation and curettage History of cryosurgery S/P laparoscopic procedure History of colonoscopy (10/12/19) S/P tonsillectomy S/P sinus surgery S/P SUMAN-BSO S/P laparoscopic cholecystectomy S/P appendectomy Family History Mother Diabetes Father Heart disease Other Asthma Cancer Gallbladder disease Hypertension Stroke Denies family history of Ovarian cancer Myocardial infarction Breast cancer Colorectal cancer Colonic polyp Uterine cancer Social History Smoking Status: Never smoker Tobacco Type: Cigarettes Age Started Using Tobacco: 18; Age Quit Using Tobacco: 58; Second Hand Exposure: Yes (in the past); Do You Dip or Chew Tobacco: No; Hx Alcohol Use: No Hx Substance Use: No Preferred Language: French Communication Ability: Effective Visual Impairment: No Limitations Hearing Ability: Normal Sales Apprentice Required: No Beliefs That Will Affect Care: None marital status: Current Living Situation: Spouse current occupational status: disabled Feels Safe at Home: Yes Childhood Exposure to Second-Hand Smoke: Yes Dental Care, Regularly: Yes Seatbelt Use: always Sunscreen Use: Yes Do you think of yourself as: straight/heterosexual Sexual Activity: has been sexually active within the last 12 months Assistive Devices: Denture - Upper Review of Systems Review of Systems: All systems reviewed & are unremarkable except as noted in HPI & below Physical Exam Physical Exam: General: A&Ox3. NAD. Cooperative. HEENT: Atraumatic, normocephalic. Pupils equal and reactive to light and accommodation, vision and hearing grossly intact Pulm: CTAB A&P. -wheezes, -rales, -rhonchi. Symmetrical chest rise. No increased work of breathing. No respiratory distress. Cardiac: RRR, -mrg. Radial pulses intact and symmetrical. Abdominal: Focal epigastric tenderness to palpation. Otherwise abdomen is nontender, soft and without rebound. No CVA tenderness Extremities: Warm, dry. Results CBC Results & Data Results & Data Vital Signs (Past 12 Hours) Vital Signs Temp Pulse Pulse Resp BP BP Pulse Ox 03/22/23 12:11 64 03/22/23 12:00 66 18 131/71 99 03/22/23 10:21 36.8 C 74 18 128/68 96 O2 Del Method 03/22/23 12:11 03/22/23 12:00 Room Air 03/22/23 10:21 Room Air PG Care Time/CCT Total # of Minutes Spent Total Time Spent with Patient: Total time spent is greater than 50% in coordination of care (as documented) at patient's floor/unit and/or counseling patient: Coding Level of Care Code 55314 INT INP/OBS CARE 3/75MIN Diagnoses Epigastric pain R10.13 COVID-19 U07.1 Arthritis of hip M16.10 Mild reactive airways disease J45.909 COPD (chronic obstructive pulmonary disease) J44.9 Irritable bowel syndrome K58.9 Fibromyalgia M79.7 Depression with anxiety F41.8
[2023-03-22] MEDS: PANTOprazole 40 MG in SYRINGE 0 ML IV SCH ×2 (16:30→21:25)
[2023-03-22] MEDS ORDERED: ALBUTEROL HFA 8 GM INHALER INH PRN (19:56)
[2023-03-22] MEDS ORDERED: MUPIROCIN 2% OINT 22 GM TUBE TOP PRN (19:56)
[2023-03-22] MEDS: ACETAMINOPHEN 325 MG TAB PO PRN (20:56)
[2023-03-22] MEDS: AMITRIPTYLINE HCL 10 MG TAB PO SCH (20:57)
[2023-03-22] MEDS: PROPRANOLOL HCL 60 MG LA CAP PO SCH (20:59)
[2023-03-22] MEDS: GABAPENTIN 100 MG CAP PO SCH (21:00)
[2023-03-22] MEDS: ATORVASTATIN 20 MG TAB PO SCH (21:00)
[2023-03-22] MEDS: TAMSULOSIN HCL 0.4 MG CAP PO SCH (21:00)
[2023-03-22] MEDS: buPROPion SR 150 MG TABCR PO SCH (21:00)
[2023-03-22] MEDS: ENOXAPARIN INJ 40 MG/0.4 ML SYR SQ SCH (21:01)
[2023-03-23] MEDS: LEVOTHYROXINE SODIUM 88 MCG TABLET PO SCH (04:56)
[2023-03-23] MEDS: ONDANSETRON INJ 2 MG/ML 2 ML VIAL IV PRN ×3 (04:56→16:11)
[2023-03-23] MEDS: FLUTICASONE/VILANTEROL 100/25MCG 14 PUFFS/INHALER INH SCH (07:33)
[2023-03-23] MEDS: PANTOprazole 40 MG in SYRINGE 0 ML IV SCH ×2 (07:33→20:12)
[2023-03-23] MEDS: POTASSIUM CHLORIDE 10 MEQ TABCR PO SCH (07:34)
[2023-03-23] MEDS: hydroCHLOROthiazide 25 MG TAB PO SCH (07:34)
[2023-03-23] MEDS: buPROPion SR 150 MG TABCR PO SCH ×2 (07:34→20:12)
[2023-03-23] MEDS: TOCOPHERYL, DL-ALPHA 400 UNITS 180 MG CAP PO SCH (07:34)
[2023-03-23] MEDS: OMEGA-3 (PURIFIED FISH OIL) 1 GM CAP PO SCH (07:35)
[2023-03-23] MEDS: GABAPENTIN 100 MG CAP PO SCH ×3 (07:35→20:12)
[2023-03-23 08:09] LABS: BUN Creatinine Ratio 9.1 (10-20); Calcium 8.4 mg/dl (8.6-10.3); Creatinine Clr Calc Pharmacy 87.9 ml/min; Est GFR (African American) 108.2 ml/min; Est GFR (Non-African American) 93.4 ml/min; Potassium 3.6 mmol/L (3.5-5.1)
[2023-03-23 08:12] LABS: Basophils # (auto) 0.04 K/uL (0.00-0.20); Basophils % (auto) 0.6 %; Eosinophils # (auto) 0.13 K/uL (0.00-0.50); Eosinophils % (auto) 2.1 %; Hematocrit (blood only) 32.5 % (37.0-47.0); Hemoglobin 10.4 g/dl (12.0-16.0); Immature Granulocytes # (auto) 0.03 K/uL (0.01-0.20); Immature Granulocytes % (auto) 0.5 %; Lymphocytes # (auto) 1.64 K/uL (1.20-3.40); Lymphocytes % (auto) 26.6 %; Mean Corpuscular Hemoglobin 27.6 pg (25.0-34.0); Mean Corpuscular Volume 86.2 fL (80.0-100.0); Mean Platelet Volume 9.6 fL (9.4-12.4); Monocytes # (auto) 0.61 K/uL (0.11-0.59); Monocytes % (auto) 9.9 %; Neutrophils # (auto) 3.71 K/uL (1.40-6.50); Neutrophils % (auto) 60.3 %; Platelet Count 229 K/uL (130-400); RDW Coefficient of Variation 13.8 % (11.5-14.5); RDW Standard Deviation 43.3 fL (36.4-46.3); Red Blood Count 3.77 M/uL (4.20-5.40); White Blood Count 6.16 K/ul (4.8-10.8)
[2023-03-23 10:51] LABS: Adenovirus F 40/41 PCR Not Detected (NotDetected); Astrovirus PCR Not Detected (NotDetected); Campylobacter PCR Not Detected (NotDetected); Cryptosporidium PCR Not Detected (NotDetected); Cyclospora cayetanensis PCR Not Detected (NotDetected); Entamoeba histolytica PCR Not Detected (NotDetected); Enteroaggregative E.coli(EAEC) Not Detected (NotDetected); Enteropathogenic E.coli (EPEC) Not Detected (NotDetected); Enterotoxigenic E.coli (ETEC) Not Detected (NotDetected); Giardia lamblia PCR Not Detected (NotDetected); Norovirus GI/GII PCR Not Detected (NotDetected); Plesiomonas shigelloides PCR Not Detected (NotDetected); Rotavirus A PCR Not Detected (NotDetected); Salmonella PCR Not Detected (NotDetected); Sapovirus PCR Not Detected (NotDetected); Shiga-like Toxin E.coli (STEC) Not Detected (NotDetected); Shigella/Enteroinvasive E.coli Not Detected (NotDetected); Vibrio cholerae PCR Not Detected (NotDetected); Vibrio species PCR Not Detected (NotDetected); Yersinia enterocolitica PCR Not Detected (NotDetected)
[2023-03-23] MEDS: TAMSULOSIN HCL 0.4 MG CAP PO SCH (11:56)
[2023-03-23] MEDS: ACETAMINOPHEN 325 MG TAB PO PRN (11:57)
--- NOTE | 2023-03-23 14:55 | Hospitalist Progress Note ---
Date of Service March 23, 2023 Assessment & Plan (1) Epigastric pain: Plan: Chronic abdominal pain/bloating, hx of IBS and H pylori - follow with [facility] GI -Worsening abdominal pain since starting Bactrim and Lagevrio 03/19 --> since discontinued CTA/P: No acute intra-abdominal or intrapelvic abnormality, right kidney lesion noted pending outpatient follow-up, nonobstructing left nephrolithiasis noted, diverticulosis without diverticulitis. Patient with worsened abdominal - CXR:without acute findings Patient is pending outpatient testing for H. pylori and a urea breath test, having recommended to discontinue PPI however has been taking this orally for the last few days. Acutely suspect she has worsened medication induced gastritis in the setting of COVID/bactrim/lagevrio use. As she is already been on a PPI will continue twice daily for symptomatic relief although this would ideally be held for at least a week before breath testing is performed. -Urea breath test rescheduled to April -Continue with antiemetics, PPI, Zofran, and supportive care at this time. -Was able to tolerate some food with lunch, reports pain but not nearly as severe as prior days. Will add Bentyl prn and add Colestripol -Low suspicion for upper GI bleed. Prior endoscopy did not show evidence of bleeding/ulcers. Her BUN is negative and she has not had melena/hematochezia. Hgb trended. (2) COVID-19: Plan: No hypoxia, diarrhea improving, dry cough improving Lagevrio held due to gastritis/intolerance -No steroids indicated Supportive (3) Kidney lesion: Plan: Seen on CT scan 1.1 cm indeterminate lesion of the right kidney again noted, possibly a small renal cell carcinoma. -Patient aware, states that she has outpatient MRI scheduled for later this week (4) Arthritis of hip: Plan: Arthritis pending outpatient follow-up for potential replacement. Also has associated bilateral tendinopathy of the lower extremities, suspected to be due to recurrent fluoroquinolone use for sinusitis. Supportive care, no fluoroquin olone use (5) Mild reactive airways disease: Plan: Albuterol as noted, no wheezing on admission (6) COPD (chronic obstructive pulmonary disease): Plan: Continue home inhalers, albuterol as needed, no acute exacerbation noted (7) Irritable bowel syndrome: Plan: FODMAP diet, gastritis treatment as above, diarrhea improved (8) Fibromyalgia: Plan: Continue bupropion, amitriptyline (9) Depression with anxiety: Plan: Bupropion, amitriptyline as noted Plan DVT prophylaxis: Lovenox, increased risk with COVID Dispo: Continued inpatient stay Admission and Anticipated Discharge Date Admission Date: March 22, 2023 Supervising Physician Co-Signing Physician Notes Attending Attestation - Chart reviewed, care plan d/w JOSE Sprague. I agree with the robbins components of her documentation. Trial of colestipol (she is s/p cholecystectomy state, chronic diarrhea, abd pain following eating). Trial of bentyl - known IBS. Consider MRCP - could she have a bile duct stone or other bile duct pathology causing post-prandial pain?? Consider formal GI consultation. COVID-19 - stable, no indication for steroids or Remdesivir at this time. Ubaldo Chi MD Subjective Patient sitting up in bed. Relates to me her longstanding history of GI issues, 30+ years. However in the last few days her abdominal pain and diarrhea has gotten worse. She does have a history of IBS, tends to be more on the diarrhea side of things. Usually for pain at home she takes Maalox or Pepto-Bismol, but those have not helped her pain in the last few days. States the only thing that has helped her long-term was a prior doctor many years ago gave her Flagyl 250 mg twice daily, with weekly Diflucan, and sulfasalazine. Pain seems to be relatively consistent, but worse at mealtimes. She knows at home that her trigger foods are acidic foods, spicy foods. She tries to avoid those. From a COVID standpoint, she is feeling well not requiring any oxygen denies cough. Review of Systems Review of Systems: All systems reviewed & are unremarkable except as noted in Subjective Physical Exam Physical Exam: General: WN/WD, NAD, VS as above Resp: normal respiratory effort, lungs clear to auscultation CV: RRR, no murmur, Abd: normal bowel sounds,epigastric and LUQ tenderness Extremities: Moves all extremities, no edema Neuro: A&O x3, Skin: intact, no lesions noted Results & Data Results & Data Vital Signs (Past 12 Hours) Vital Signs Temp Pulse Resp BP Pulse Ox O2 Del Method 03/23/23 07:28 36.7 C 65 18 104/68 96 Room Air Laboratory Results CBC, chemistry, stool studies reviewed Diagnostic Findings CT scan reviewed PG Care Time/CCT Total # of Minutes Spent Total Time Spent with Patient: Total time spent is greater than 50% in coordination of care (as documented) at patient's floor/unit and/or counseling patient: Coding Level of Care Code 06940 SUB INP/OBS CARE 2/35MIN Diagnoses Epigastric pain R10.13 COVID-19 U07.1 Kidney lesion N28.9 Arthritis of hip M16.10 Mild reactive airways disease J45.909 COPD (chronic obstructive pulmonary disease) J44.9 Irritable bowel syndrome K58.9 Fibromyalgia M79.7 Depression with anxiety F41.8
[2023-03-23] MEDS: DICYCLOMINE HCL 10 MG CAP PO PRN (16:11)
[2023-03-23] MEDS: COLESTIPOL HCL 1 GM TAB PO SCH (16:11)
[2023-03-23] MEDS ORDERED: DICYCLOMINE HCL 10 MG CAP PO SCH (17:00)
[2023-03-23] MEDS: ENOXAPARIN INJ 40 MG/0.4 ML SYR SQ SCH (20:11)
[2023-03-23] MEDS: PROPRANOLOL HCL 60 MG LA CAP PO SCH (20:12)
[2023-03-23] MEDS: ATORVASTATIN 20 MG TAB PO SCH (20:12)
[2023-03-23] MEDS: AMITRIPTYLINE HCL 10 MG TAB PO SCH (20:13)
[2023-03-23] MEDS ORDERED: BENZONATATE 100 MG CAPSULE PO ONE (22:27)
[2023-03-24] MEDS: ONDANSETRON INJ 2 MG/ML 2 ML VIAL IV PRN (03:45)
[2023-03-24] MEDS ORDERED: BENZONATATE 100 MG CAPSULE PO ONE (05:27)
[2023-03-24] MEDS ORDERED: HYDROmorphone INJ 0.5 MG/0.5 ML SYR IV STA (05:27)
[2023-03-24] MEDS: LEVOTHYROXINE SODIUM 88 MCG TABLET PO SCH (05:53)
[2023-03-24 06:37] LABS: Basophils # (auto) 0.04 K/uL (0.00-0.20); Basophils % (auto) 0.6 %; Eosinophils % (auto) 1.6 %; Hematocrit (blood only) 36.5 % (37.0-47.0); Hemoglobin 12.1 g/dl (12.0-16.0); Immature Granulocytes # (auto) 0.04 K/uL (0.01-0.20); Immature Granulocytes % (auto) 0.6 %; Lymphocytes # (auto) 1.72 K/uL (1.20-3.40); Lymphocytes % (auto) 27.7 %; Mean Corpuscular Hemoglobin 27.4 pg (25.0-34.0); Mean Corpuscular Hgb Conc 33.2 g/dL (32.0-36.0); Mean Corpuscular Volume 82.6 fL (80.0-100.0); Mean Platelet Volume 9.4 fL (9.4-12.4); Monocytes # (auto) 0.49 K/uL (0.11-0.59); Monocytes % (auto) 7.9 %; Neutrophils # (auto) 3.82 K/uL (1.40-6.50); Neutrophils % (auto) 61.6 %; Platelet Count 276 K/uL (130-400); RDW Coefficient of Variation 13.5 % (11.5-14.5); RDW Standard Deviation 40.8 fL (36.4-46.3); Red Blood Count 4.42 M/uL (4.20-5.40); White Blood Count 6.21 K/ul (4.8-10.8)
[2023-03-24 07:01] LABS: BUN Creatinine Ratio 9.9 (10-20); Calcium 9.4 mg/dl (8.6-10.3); Creatinine Clr Calc Pharmacy 71.6 ml/min; Est GFR (Non-African American) 76.8 ml/min; Magnesium 1.9 mg/dl (1.7-2.4); Potassium 3.9 mmol/L (3.5-5.1)
[2023-03-24] MEDS: FLUTICASONE/VILANTEROL 100/25MCG 14 PUFFS/INHALER INH SCH (08:23)
[2023-03-24] MEDS: POTASSIUM CHLORIDE 10 MEQ TABCR PO SCH (08:26)
[2023-03-24] MEDS: DICYCLOMINE HCL 10 MG CAP PO PRN ×2 (08:26→13:27)
[2023-03-24] MEDS: OMEGA-3 (PURIFIED FISH OIL) 1 GM CAP PO SCH (08:26)
[2023-03-24] MEDS: hydroCHLOROthiazide 25 MG TAB PO SCH (08:26)
[2023-03-24] MEDS: GABAPENTIN 100 MG CAP PO SCH ×3 (08:27→21:00)
[2023-03-24] MEDS: buPROPion SR 150 MG TABCR PO SCH ×2 (08:27→21:00)
[2023-03-24] MEDS: PANTOprazole 40 MG in SYRINGE 0 ML IV SCH ×2 (08:27→20:59)
[2023-03-24] MEDS: TOCOPHERYL, DL-ALPHA 400 UNITS 180 MG CAP PO SCH (08:27)
[2023-03-24] MEDS: COLESTIPOL HCL 1 GM TAB PO SCH (09:38)
[2023-03-24] MEDS: BENZONATATE 100 MG CAPSULE PO SCH ×3 (10:55→21:00)
[2023-03-24] MEDS: FLUTICASONE PROPIONATE NA SPR 16 GM BTL SCH (10:55)
[2023-03-24] MEDS: TAMSULOSIN HCL 0.4 MG CAP PO SCH (13:26)
--- NOTE | 2023-03-24 14:16 | Hospitalist Progress Note ---
Date of Service March 24, 2023 Assessment & Plan (1) Epigastric pain: Plan: Chronic abdominal pain/bloating, hx of IBS and H pylori - follows with [facility] GI -Worsening abdominal pain since starting Bactrim and Lagevrio 03/19 --> since discontinued CTA/P: No acute intra-abdominal or intrapelvic abnormality, right kidney lesion noted pending outpatient follow-up, nonobstructing left nephrolithiasis noted, diverticulosis without diverticulitis. - CXR:without acute findings Patient is pending outpatient testing for H. pylori and a urea breath test, having recommended to discontinue PPI however she never stopped this. Rescheduled her Urea breath test to April, will continue PPI use while inpatient. -Continue with antiemetics, PPI, Zofran, and supportive care at this time. -03/23 added Bentyl prn and add Colestripol -Seems to have improved abdominal pain -Stool PCR studies negative -Low suspicion for upper GI bleed. Prior endoscopy did not show evidence of bleeding/ulcers. Her BUN is negative and she has not had melena/hematochezia. Hgb trended. -Dark stools reported, check fecal occult blood -Will add simethicone for gas pain (2) COVID-19: Plan: No hypoxia, diarrhea improving, dry cough improving Lagevrio held due to gastritis/intolerance - No steroids indicated - Flonase and Tessalon for symptom control Supportive (3) Kidney lesion: Plan: Seen on CT scan 1.1 cm indeterminate lesion of the right kidney again noted, possibly a small renal cell carcinoma. -Was supposed to have outpatient MRI 03/25, but since she is inpatient we will order this for her -One time dose Ativan for 30 minutes prior (4) Paresthesia of upper extremity: Plan: No identifiable causative factors - ?cervical impingement. Patient denies any hx of neck pain. Paresthesia are very infrequent. - Will check vit B12 level with AM labs (5) Arthritis of hip: Plan: Arthritis pending outpatient follow-up for potential replacement. Also has associated bilateral tendinopathy of the lower extremities, suspected to be due to recurrent fluoroquinolone use for sinusitis. Supportive care, no fluoroquinolone use (6) Mild reactive airways disease: Plan: Albuterol as noted, no wheezing on admission (7) COPD (chronic obstructive pulmonary disease): Plan: Continue home inhalers, albuterol as needed, no acute exacerbation noted (8) Irritable bowel syndrome: Plan: FODMAP diet, gastritis treatment as above, diarrhea improved (9) Fibromyalgia: Plan: Continue bupropion, amitriptyline (10) Depression with anxiety: Plan: Bupropion, amitriptyline as noted Plan DVT prophylaxis: Lovenox, increased risk with COVID Dispo: Continued inpatient stay Admission and Anticipated Discharge Date Admission Date: March 22, 2023 Subjective patient seen sitting up in bed. States that overall abdominal pain has improved since arrival to the ER. However this morning around 5 AM she had an episode of severe pain and nausea, also had numbness and tingling running down both arms. States this has happened before, usually resolves on its own. Shortly after that, states had an episode of diarrhea that was very dark in color, potentially black. Patient states she did not notice any blood in her stool. Reports that she was able to tolerate more food for dinner last night, and breakfast this morning. Knows to avoid trigger foods even with a send up on her tray. Also complains of sinus congestion/pressure, is again requesting ant ibiotic. also reports cough that is nonproductive. Denies CP or SOB. Revisted patient again this afternoon. Has not had any further diarrhea or arm numbness. Complains of dry cough and gas pains. Review of Systems Review of Systems: All systems reviewed & are unremarkable except as noted in Subjective Physical Exam Physical Exam: General: WN/WD, NAD, VS as above Resp: normal respiratory effort, lungs clear to auscultation. No cough while I was present in the room. CV: RRR, no murmur, Abd: normal bowel sounds,generalized abdominal tenderness Extremities: Moves all extremities, moving bilateral arms without issue Neuro: A&O x3, Skin: intact, no lesions noted Results & Data Results & Data Vital Signs (Past 12 Hours) Vital Signs Temp Pulse Resp BP Pulse Ox O2 Del Method 03/24/23 08:03 36.6 C 68 14 123/75 95 Room Air 03/24/23 07:15 Room Air Laboratory Results CBC, chemistry and Mag reviewed. PG Care Time/CCT Total # of Minutes Spent Total Time Spent with Patient: Total time spent is greater than 50% in coordination of care (as documented) at patient's floor/unit and/or counseling patient: Coding Level of Care Code 99283 SUB INP/OBS CARE 2/35MIN Diagnoses Epigastric pain R10.13 COVID-19 U07.1 Kidney lesion N28.9 Paresthesia of upper extremity R20.2 Arthritis of hip M16.10 Mild reactive airways disease J45.909 COPD (chronic obstructive pulmonary disease) J44.9 Irritable bowel syndrome K58.9 Fibromyalgia M79.7 Depression with anxiety F41.8
[2023-03-24] MEDS ORDERED: SIMETHICONE 40 MG/0.6 ML 30ML PO PRN (15:05)
[2023-03-24] MEDS ORDERED: LORazepam 0.5 MG TAB PO ONE (15:10)
[2023-03-24] MEDS ORDERED: CETIRIZINE HCL 10 MG TABLET PO ONE (20:11)
[2023-03-24] MEDS ORDERED: SODIUM CHLORIDE 0.65% NA SOLN 45 ML (OCEAN) ONE (20:11)
[2023-03-24] MEDS: AMITRIPTYLINE HCL 10 MG TAB PO SCH (20:48)
[2023-03-24] MEDS: PROPRANOLOL HCL 60 MG LA CAP PO SCH (21:00)
[2023-03-24] MEDS: ATORVASTATIN 20 MG TAB PO SCH (21:00)
[2023-03-24] MEDS: ENOXAPARIN INJ 40 MG/0.4 ML SYR SQ SCH (21:01)
[2023-03-24] MEDS ORDERED: LORazepam 0.5 MG TAB ONE (22:05)
[2023-03-24] MEDS ORDERED: LORazepam 0.25 MG in SYRINGE 0.125 ML IV ONE (23:15)
[2023-03-25] MEDS ORDERED: GADOBUTROL 65ML VIAL IV ONE (00:01)
[2023-03-25] MEDS: guaiFENesin 600 MG TABCR PO SCH ×3 (00:22→20:58)
--- NOTE | 2023-03-25 00:47 | Magnetic Resonance Report ---
Exam(s): MRI ABDOMEN W/WO Contrast IV Amt: 7.5cc gadavist EXAM: MR Abdomen Without and With Intravenous Contrast CLINICAL HISTORY: Reason for exam: 1cm lesion on Right kidney. TECHNIQUE: Multiplanar magnetic resonance images of the abdomen without and with intravenous contrast. CONTRAST: Patient received 7.5cc gadavist of IV contrast COMPARISON: No relevant prior studies available. FINDINGS: Lung bases: Unremarkable. No mass. No consolidation. Pleural space: Left pleural effusion. Liver: Unremarkable. No mass. Gallbladder and bile ducts: Unremarkable. No calcified stones. No ductal dilation. Pancreas: Unremarkable. No ductal dilation. No mass. Spleen: Unremarkable. No splenomegaly. Adrenals: Unremarkable. No mass. Kidneys and ureters: Unremarkable. No hydronephrosis. No solid mass. Stomach and bowel: Unremarkable. No obstruction. Intraperitoneal space: Unremarkable. No significant fluid collection. Soft tissues: Unremarkable. Vasculature: Unremarkable. No abdominal aortic aneurysm. Lymph nodes: Unremarkable. No enlarged lymph nodes. IMPRESSION: Left pleural effusion. Electronically signed by: David Torres MD 03/25/23 00:46 AM
[2023-03-25] MEDS: LEVOTHYROXINE SODIUM 88 MCG TABLET PO SCH (05:48)
[2023-03-25 06:54] LABS: Potassium 3.5 mmol/L (3.5-5.1)
[2023-03-25 06:55] LABS: BUN Creatinine Ratio 16.4 (10-20); Calcium 8.7 mg/dl (8.6-10.3); Creatinine Clr Calc Pharmacy 79.5 ml/min; Est GFR (African American) 100.9 ml/min
[2023-03-25] MEDS: FLUTICASONE/VILANTEROL 100/25MCG 14 PUFFS/INHALER INH SCH (07:57)
[2023-03-25] MEDS: FLUTICASONE PROPIONATE NA SPR 16 GM BTL SCH (08:00)
[2023-03-25] MEDS: POTASSIUM CHLORIDE 10 MEQ TABCR PO SCH (08:00)
[2023-03-25] MEDS: DICYCLOMINE HCL 10 MG CAP PO PRN ×2 (08:00→13:18)
[2023-03-25] MEDS: hydroCHLOROthiazide 25 MG TAB PO SCH (08:01)
[2023-03-25] MEDS: BENZONATATE 100 MG CAPSULE PO SCH ×3 (08:01→20:58)
[2023-03-25] MEDS: GABAPENTIN 100 MG CAP PO SCH ×3 (08:01→20:58)
[2023-03-25] MEDS: OMEGA-3 (PURIFIED FISH OIL) 1 GM CAP PO SCH (08:01)
[2023-03-25] MEDS: PANTOprazole 40 MG in SYRINGE 0 ML IV SCH ×2 (08:02→20:59)
[2023-03-25] MEDS: buPROPion SR 150 MG TABCR PO SCH ×2 (08:02→20:58)
[2023-03-25] MEDS: TOCOPHERYL, DL-ALPHA 400 UNITS 180 MG CAP PO SCH (08:02)
--- NOTE | 2023-03-25 08:27 | Hospitalist Progress Note ---
Date of Service March 25, 2023 Assessment & Plan (1) Epigastric pain: Plan: Chronic abdominal pain/bloating, hx of IBS and H pylori - follows with [facility] GI -Worsening abdominal pain since starting Bactrim and Lagevrio 03/19 --> since discontinued CTA/P: No acute intra-abdominal or intrapelvic abnormality, right kidney lesion noted pending outpatient follow-up, nonobstructing left nephrolithiasis noted, diverticulosis without diverticulitis. - CXR:without acute findings Patient is pending outpatient testing for H. pylori and a urea breath test, having recommended to discontinue PPI however she never stopped this. Rescheduled her Urea breath test to April, will continue PPI use while inpatient. -Continue with antiemetics, PPI, Zofran, and supportive care at this time. -03/23 added Bentyl prn and add Colestripol -Seems to have improved abdominal pain -Stool PCR studies negative -Low suspicion for upper GI bleed. Prior endoscopy did not show evidence of bleeding/ulcers. Her BUN is negative and she has not had melena/hematochezia. Hgb trended. -Dark stools reported, check fecal occult blood -- NEGATIVE Simethicone for gas pain 03/25 H pylori stool testing negative 03/23, stool testing negative, negative cdiff. Started Bentyl 10mg QID prn, colestipol 1gm daily ?Questran -- did NOT tolerate in the past ?anxiety component MRI abdomen w/o significant finding reported for kidney lesion. Noting no hematuria/RBC on prior UAs. Cannot find any prior urine cytology Notes L pleural effusion? Checked CXR -- no significant findings/no consolidation ABdominal pain much improved w/ bentyl/questran but reporting increased post- nasal drip/sinus congestion/need for anitbiotic therapy. Will have CM work on ENT f/u and discuss w/ supervising provider given reported improvement on Bactrim but intolerance to the antiviral causing GI upset on admission. (2) COVID-19: Plan: No hypoxia, diarrhea improving Lagevrio held due to gastritis/intolerance No steroids indicated Flonase and Tessalon for symptom control Dry cough improving however reports WORSENEING COUGH TODAY Mucinex increased to 1200mg BID Zyrtec daily for allergy symptoms 97% on RA ?sinus infection, no sinus tenderness but reporting increased post-nasal drip. Reason for her recent abx use for sinusitis Monitor/discussing w/ superivising provider --> will place on cefdinir 300mg BID, asking CM to assist with f/u ENT at discharge sputum cx if able to obtain (3) Kidney lesion: Plan: Seen on CT scan 1.1 cm indeterminate lesion of the right kidney again noted, possibly a small renal cell carcinoma. Was supposed to have outpatient MRI 03/25, but since she is inpatient we will order this for her -One time dose Ativan for 30 minutes prior MRI completed without significant findings. No hematuria on UA. Cannot find flow cytology but can ordered/follow up as outpatient (4) Paresthesia of upper extremity: Plan: No identifiable causative factors - ?cervical impingement. Patient denies any hx of neck pain. Paresthesia are very infrequent. B12 wnl on check No issues reported regarding this today (5) Arthritis of hip: Plan: Arthritis pending outpatient follow-up for potential replacement. Also has associated bilateral tendinopathy of the lower extremities, suspected to be due to recurrent fluoroquinolone use for sinusitis. (although appears was sent on Bactrim?) Supportive care, no fluoroquinolone use Was given rx for celebrex by orthopedics, ?worsened reflux w/ NSAIDs. ON PPI at baseline/had pH study most recently (6) Mild reactive airways disease: Plan: Albuterol as noted, no wheezing on admission. 97% on RA no wheezing on exam but reported asthma attack in office x 2, 2nd to sinus infection needing to arrange ENT in f/u (7) COPD (chronic obstructive pulmonary disease): Plan: Continue home inhalers, albuterol as needed, no acute exacerbation noted (however ?asthma exacerbation last week outpatient, abx prescribed) (8) Irritable bowel syndrome: Plan: FODMAP diet, gastritis treatment as above, diarrhea improved (9) Fibromyalgia: Plan: Continue bupropion, amitriptyline (unable to tolerate amitriptyline -- has been refusing, reports makes her not be able to function) (10) Depression with anxiety: Plan: Bupropion continued amitriptyline as noted above ?cymbatla for pain? Plan DVT prophylaxis: Lovenox, increased risk with COVID continued inpatient stay, possible abx for sinusitis. CM to assist w/ ENT outpatient f/u consult PT to ensure safe for return home Admission and Anticipated Discharge Date Admission Date: March 24, 2023 Subjective Eval around lunch, sitting up in bed. Had improvement in sinus issues on admission as was on abx for 4 doses w/ bactrim and antiviral caused GI upset. Improvment in GI symptoms since bentyl/colestipol. Did not able to tolerate questran in the past (reported packets, made her legs all red/swollen). On PPI daily. She has sinus congestion and believes needs antibiotics as was improved after taking some but 2 days ago worsened sinus infxn. Was seen by Jun Gonzalez in past and told not adequately treated with antibiotics and should be on loonger course. She is inquiring about antibiotics -- will discuss w/ supervising provider. Cough/post-nasal drip, hx asthma. She does nasal rinses, solution, xyzal daily. Getting mucinex but discussed increasing dosing to help thin secretions/mucus. Physical Exam Physical Exam: General: WN/WD female sitting up in bed, eating lunch, NAD but + cough HEENT: head atraumatic, normocephalic, nasal bogginess, no lymphadenopathy, +post-nasal drip/erythema to oropharynx Resp: diminished in bases L>R, faint bilateral crackles, no wheezing, on room air CV: RRR, no significant mrg, no calf edema/tenderness GI: +BS, soft, no overt tenderness/guarding/rigidity : no moreira MSK/Neuro: nonfocal, answering questions appropriately, strength equal bilaterally Psych: AOx3, cooperative but anxious appearing at times Results & Data Results & Data Vital Signs (Past 12 Hours) Vital Signs Temp Pulse Resp BP Pulse Ox O2 Del Method 03/25/23 07:53 36.6 C 77 18 138/75 97 Room Air Laboratory Results 03/25/23 03/25/23 Range/Units 08:30 06:05 WBC 7.24 (4.8-10.8) K/ul RBC 4.13 L (4.20-5.40) M/uL Hgb 11.4 L (12.0-16.0) g/dl Hct 36.1 L (37.0-47.0) % MCV 87.4 D (80.0-100.0) fL MCH 27.6 (25.0-34.0) pg MCHC 31.6 L (32.0-36.0) g/dL RDW Std Deviation 42.4 (36.4-46.3) fL RDW Coeff of Sánchez 13.5 (11.5-14.5) % Plt Count 260 (130-400) K/uL MPV 9.7 (9.4-12.4) fL Immature Gran % (Auto) 0.6 % Neut % (Auto) 59.6 % Lymph % (Auto) 27.3 % [place] % (Auto) 8.0 % Eos % (Auto) 3.5 % Baso % (Auto) 1.0 % Neut # (Auto) 4.32 (1.40-6.50) K/uL Lymph # (Auto) 1.98 (1.20-3.40) K/uL [place] # (Auto) 0.58 (0.11-0.59) K/uL Eos # (Auto) 0.25 (0.00-0.50) K/uL Baso # (Auto) 0.07 (0.00-0.20) K/uL Immature Gran # (Auto) 0.04 (0.01-0.20) K/uL Sodium 140 (136-145) mmol/L Potassium 3.5 (3.5-5.1) mmol/L Chloride 105 (98-107) mmol/L Carbon Dioxide 29 (21-32) mmol/L Anion Gap 6 (3-11) BUN 12 (6-23) mg/dl Creatinine 0.73 (0.6-1.2) mg/dl Est Cr Clr Drug Dosing 79.5 ml/min Est GFR ( Amer) 100.9 ml/min Est GFR (Non-Af Amer) 87.0 ml/min BUN/Creatinine Ratio 16.4 (10-20) Glucose 127 H (70-99(Fasting)) mg/dl Calcium 8.7 (8.6-10.3) mg/dl Vitamin B12 455 (180-914) pg/ml Stool Occult Bld Scrn Negative (Negative) Diagnostic Findings Abdomen MRI 03/24/23 15:07 Exam(s): MRI ABDOMEN W/WO Contrast IV Amt: 7.5cc gadavist EXAM: MR Abdomen Without and With Intravenous Contrast CLINICAL HISTORY: Reason for exam: 1cm lesion on Right kidney. TECHNIQUE: Multiplanar magnetic resonance images of the abdomen without and with intravenous contrast. CONTRAST: Patient received 7.5cc gadavist of IV contrast COMPARISON: No relevant prior studies available. FINDINGS: Lung bases: Unremarkable. No mass. No consolidation. Pleural space: Left pleural effusion. Liver: Unremarkable. No mass. Gallbladder and bile ducts: Unremarkable. No calcified stones. No ductal dilation. Pancreas: Unremarkable. No ductal dilation. No mass. Spleen: Unremarkable. No splenomegaly. Adrenals: Unremarkable. No mass. Kidneys and ureters: Unremarkable. No hydronephrosis. No solid mass. Stomach and bowel: Unremarkable. No obstruction. Intraperitoneal space: Unremarkable. No significant fluid collection. Soft tissues: Unremarkable. Vasculature: Unremarkable. No abdominal aortic aneurysm. Lymph nodes: Unremarkable. No enlarged lymph nodes. IMPRESSION: Left pleural effusion. Electronically signed by: David Torres MD 03/25/23 00:46 AM Chest X-Ray 03/25/23 08:28 SINGLE VIEW CHEST CLINICAL HISTORY: Follow-up pleural effusion FINDINGS: An AP, portable, upright chest radiograph is compared to study dated 03/22/2023. Correlation is made with abdominal CT dated 03/22/2023. The cardiomediastinal silhouette is top normal for projection. Chronic interstitial thickening similar to previous. The lungs and pleural spaces are clear. No pneumothorax is seen. The skeletal structures are osteopenic. The bony thorax is grossly intact. IMPRESSION: No active disease in the chest. ACT 112: Negative or not required by law. Electronically signed by: Tu Diez M.D. 03/25/2023 8:45 AM PG Care Time/CCT Total # of Minutes Spent Total Time Spent with Patient: Total time spent is greater than 50% in coordination of care (as documented) at patient's floor/unit and/or counseling patient: Coding Level of Care Code 88484 SUB INP/OBS CARE 3/50MIN Diagnoses Epigastric pain R10.13 COVID-19 U07.1 Kidney lesion N28.9 Paresthesia of upper extremity R20.2 Arthritis of hip M16.10 Mild reactive airways disease J45.909 COPD (chronic obstructive pulmonary disease) J44.9 Irritable bowel syndrome K58.9 Fibromyalgia M79.7 Depression with anxiety F41.8
--- NOTE | 2023-03-25 08:47 | XRay Report ---
SINGLE VIEW CHEST CLINICAL HISTORY: Follow-up pleural effusion FINDINGS: An AP, portable, upright chest radiograph is compared to study dated 03/22/2023. Correlatio n is made with abdominal CT dated 03/22/2023. The cardiomediastinal silhouette is top normal for proj ection. Chronic interstitial thickening similar to previous. The lungs and pleural spaces are clear. No pneumothorax is seen. The skeletal structures are osteopenic. The bony thorax is grossly intact. IMPRESSION: No active disease in the chest. ACT 112: Negative or not required by law. Electronically signed by: Tu Diez M.D. 03/25/2023 8:45 AM
[2023-03-25 08:49] LABS: Basophils # (auto) 0.07 K/uL (0.00-0.20); Eosinophils # (auto) 0.25 K/uL (0.00-0.50); Eosinophils % (auto) 3.5 %; Hematocrit (blood only) 36.1 % (37.0-47.0); Hemoglobin 11.4 g/dl (12.0-16.0); Immature Granulocytes # (auto) 0.04 K/uL (0.01-0.20); Immature Granulocytes % (auto) 0.6 %; Lymphocytes # (auto) 1.98 K/uL (1.20-3.40); Lymphocytes % (auto) 27.3 %; Mean Corpuscular Hemoglobin 27.6 pg (25.0-34.0); Mean Corpuscular Hgb Conc 31.6 g/dL (32.0-36.0); Mean Corpuscular Volume 87.4 fL (80.0-100.0); Mean Platelet Volume 9.7 fL (9.4-12.4); Monocytes # (auto) 0.58 K/uL (0.11-0.59); Neutrophils # (auto) 4.32 K/uL (1.40-6.50); Neutrophils % (auto) 59.6 %; Platelet Count 260 K/uL (130-400); RDW Coefficient of Variation 13.5 % (11.5-14.5); RDW Standard Deviation 42.4 fL (36.4-46.3); Red Blood Count 4.13 M/uL (4.20-5.40); White Blood Count 7.24 K/ul (4.8-10.8)
[2023-03-25] MEDS: COLESTIPOL HCL 1 GM TAB PO SCH (10:09)
[2023-03-25] MEDS ORDERED: CETIRIZINE HCL 10 MG TABLET PO ONE (13:00)
[2023-03-25] MEDS: TAMSULOSIN HCL 0.4 MG CAP PO SCH (13:17)
[2023-03-25] MEDS: ONDANSETRON INJ 2 MG/ML 2 ML VIAL IV PRN ×2 (14:13→20:59)
[2023-03-25] MEDS: AMITRIPTYLINE HCL 10 MG TAB PO SCH (20:52)
[2023-03-25] MEDS: CEFDINIR 300 MG CAP PO SCH (20:58)
[2023-03-25] MEDS: ACETAMINOPHEN 325 MG TAB PO PRN (20:58)
[2023-03-25] MEDS: ENOXAPARIN INJ 40 MG/0.4 ML SYR SQ SCH (20:58)
[2023-03-25] MEDS: PROPRANOLOL HCL 60 MG LA CAP PO SCH (20:58)
[2023-03-25] MEDS: ATORVASTATIN 20 MG TAB PO SCH (20:58)
[2023-03-26] MEDS: ACETAMINOPHEN 325 MG TAB PO PRN ×2 (05:45→21:03)
[2023-03-26] MEDS: LEVOTHYROXINE SODIUM 88 MCG TABLET PO SCH (05:46)
[2023-03-26] MEDS: ONDANSETRON INJ 2 MG/ML 2 ML VIAL IV PRN (05:48)
[2023-03-26] MEDS: BENZONATATE 100 MG CAPSULE PO SCH ×3 (07:51→21:00)
[2023-03-26] MEDS: buPROPion SR 150 MG TABCR PO SCH ×2 (07:52→21:02)
[2023-03-26] MEDS: CEFDINIR 300 MG CAP PO SCH (07:52)
[2023-03-26] MEDS: OMEGA-3 (PURIFIED FISH OIL) 1 GM CAP PO SCH (07:53)
[2023-03-26] MEDS: CETIRIZINE HCL 10 MG TABLET PO SCH (07:53)
[2023-03-26] MEDS: TOCOPHERYL, DL-ALPHA 400 UNITS 180 MG CAP PO SCH (07:53)
[2023-03-26] MEDS: GABAPENTIN 100 MG CAP PO SCH ×3 (07:54→21:00)
[2023-03-26] MEDS: FLUTICASONE/VILANTEROL 100/25MCG 14 PUFFS/INHALER INH SCH (07:54)
[2023-03-26] MEDS: FLUTICASONE PROPIONATE NA SPR 16 GM BTL SCH (07:54)
[2023-03-26] MEDS: guaiFENesin 600 MG TABCR PO SCH ×2 (07:55→20:59)
[2023-03-26] MEDS: hydroCHLOROthiazide 25 MG TAB PO SCH (07:55)
[2023-03-26] MEDS: PANTOprazole 40 MG in SYRINGE 0 ML IV SCH (07:56)
[2023-03-26] MEDS: POTASSIUM CHLORIDE 10 MEQ TABCR PO SCH (07:56)
--- NOTE | 2023-03-26 07:57 | Hospitalist Progress Note ---
Date of Service March 26, 2023 Assessment & Plan (1) Epigastric pain: Plan: Chronic abdominal pain/bloating, hx of IBS and H pylori - follows with [facility] GI Worsening abdominal pain since starting Bactrim and Lagevrio 03/19 --> since discontinued CTA/P: No acute intra-abdominal or intrapelvic abnormality, right kidney lesion noted pending outpatient follow-up, nonobstructing left nephrolithiasis noted, diverticulosis without diverticulitis. CXR:without acute findings Patient is pending outpatient testing for H. pylori and a urea breath test, having recommended to discontinue PPI however she never stopped this. Rescheduled her Urea breath test to April, will continue PPI use while inpatient. Continue with antiemetics, PPI, Zofran, and supportive care at this time. -03/23 added Bentyl prn and add Colestripol -Seems to have improved abdominal pain -Stool PCR studies negative -Low suspicion for upper GI bleed. Prior endoscopy did not show evidence of bleeding/ulcers. Her BUN is negative and she has not had melena/hematochezia. Hgb trended. -Dark stools reported, check fecal occult blood -- NEGATIVE Simethicone for gas pain 03/25 H pylori stool testing negative 03/23, stool testing negative, negative cdiff. Started Bentyl 10mg QID prn, colestipol 1gm daily ?Questran -- did NOT tolerate in the past ?anxiety component MRI abdomen w/o significant finding reported for kidney lesion. Noting no hematuria/RBC on prior UAs. Cannot find any prior urine cytology Notes L pleural effusion? Checked CXR -- no significant findings/no consolidation Abdominal pain much improved w/ bentyl/questran but reporting increased post- nasal drip/sinus congestion/need for antibiotic therapy. Will have CM work on ENT f/u and discuss w/ supervising provider given reported improvement on Bactrim but intolerance to the antiviral causing GI upset on admission. 03/26 -- increased abdominal pain, continued reports similar to H Pylori infection. Insistant on treatment rather than investigation other causes. --> GI consulted but discussed w/ supervising provider and will order Flagyl/clarithromycin for treatment, continue PPI. Can f/u outpt otherwise and will monitor response to treatment (2) COVID-19: Plan: No hypoxia, diarrhea improving Lagevrio held due to gastritis/intolerance No steroids indicated Flonase and Tessalon for symptom control Dry cough improving however reports WORSENEING COUGH TODAY Mucinex increased to 1200mg BID Zyrtec daily for allergy symptoms 97% on RA ?sinus infection, no sinus tenderness but reporting increased post-nasal drip - reason for her recent abx use for sinusitis Monitor/discussing w/ superivising provider --> placed on cefdinir 300mg BID, asking CM to assist with f/u ENT at discharge, however tx possible H pylori as above Pt to ask to bring her home Symbicort for her underlying asthma sputum cx if able to obtain (3) Paresthesia of upper extremity: Plan: No identifiable causative factors - ?cervical impingement. Patient denies any hx of neck pain. Paresthesia are very infrequent. No issues reported regarding this 03/25 but reporting intermittent issues today, similar to her prior infection w/ h pylori B12 wnl on check Monitor response to abx as above (4) Arthritis of hip: Plan: Arthritis pending outpatient follow-up for potential replacement. Also has associated bilateral tendinopathy of the lower extremities, suspected to be due to recurrent fluoroquinolone use for sinusitis. (although appears was sent on Bactrim?) Supportive care, no fluoroquinolone use Was given rx for celebrex by orthopedics, ?worsened reflux w/ NSAIDs. ON PPI at baseline/had pH study most recently (5) Mild reactive airways disease: Plan: Albuterol as noted, no wheezing on admission. 97% on RA no wheezing on exam but reported asthma attack in office x 2, 2nd to sinus infection needing to arrange ENT in f/u to bring home symbicort (6) COPD (chronic obstructive pulmonary disease): Plan: Continue home inhalers, albuterol as needed, no acute exacerbation noted (however ?asthma exacerbation last week outpatient, abx prescribed) Home symbicort to be brought in (7) Irritable bowel syndrome: Plan: FODMAP diet, gastritis treatment as above, diarrhea improved Bentyl as above, tx h pylori (8) Fibromyalgia: Plan: Continue bupropion, amitriptyline (unable to tolerate amitriptyline -- has been refusing, reports makes her not be able to function) (9) Depression with anxiety: Plan: Bupropion continued amitriptyline as noted above ?Cymbalta for pain?/anxiety/depression Plan DVT prophylaxis: Lovenox, increased risk with COVID continued inpatient stay, GI consulted/abx for possible h pylori Admission and Anticipated Discharge Date Admission Date: March 24, 2023 Supervising Physician Co-Signing Physician Notes The patient was not seen by me. The chart was reviewed. Case discussed with JOSE Perkins. Agree with assessment and plan Subjective Eval this morning, tearful and crying saying people aren't listening to her and she has the EXACT same symptoms as she had with H pylori and wondering why anyone won't just treat her. Upper abdominal pain w/ numbness to arms at times. Discussed GI consult, possible empiric treatment. No sputum production, increased mucinex last evening. She is allergic to Breo -- discussed asking her to bring in her home symbicort for use. Physical Exam 2 Physical Exam: General: WN/WD female sitting up in bed, tearful/crying about people not listening to her HEENT: head atraumatic, normocephalic, nasal bogginess, no lymphadenopathy, +post-nasal drip/erythema to oropharynx ?core sores Resp: diminished in bases L>R, no w/c/r, on room air CV: RRR, no significant mrg, no calf edema/tenderness GI: +BS, soft, +upper abdominal tenderness,, no guarding/rebound : no moreira MSK/Neuro: nonfocal, answering questions appropriately, strength equal bilaterally Psych: AOx3, cooperative but anxious/tearful appearing at times Results & Data Results & Data Vital Signs (Past 12 Hours) Vital Signs Temp Pulse Resp BP Pulse Ox O2 Del Method 03/26/23 07:49 36.5 C 67 18 154/83 H 99 Room Air 03/25/23 21:00 Room Air 03/25/23 20:44 73 16 123/76 97 Room Air Laboratory Results 03/25/23 06:05 03/25/23 06:05 PG Care Time/CCT Total # of Minutes Spent Total Time Spent with Patient: Total time spent is greater than 50% in coordination of care (as documented) at patient's floor/unit and/or counseling patient: Coding Level of Care Code 97084 SUB INP/OBS CARE 3/50MIN Diagnoses Epigastric pain R10.13 COVID-19 U07.1 Paresthesia of upper extremity R20.2 Arthritis of hip M16.10 Mild reactive airways disease J45.909 COPD (chronic obstructive pulmonary disease) J44.9 Irritable bowel syndrome K58.9 Fibromyalgia M79.7 Depression with anxiety F41.8
[2023-03-26] MEDS: DICYCLOMINE HCL 10 MG CAP PO PRN ×2 (09:13→14:19)
[2023-03-26 09:52] LABS: BUN Creatinine Ratio 12.9 (10-20); Creatinine Clr Calc Pharmacy 68.2 ml/min; Est GFR (African American) 83.9 ml/min; Est GFR (Non-African American) 72.4 ml/min; Magnesium 1.8 mg/dl (1.7-2.4); Potassium 3.8 mmol/L (3.5-5.1)
[2023-03-26 10:12] LABS: Lyme Ab IgG w/WB Rflx Negative (Negative); Lyme Ab IgM w/WB Rflx Negative (Negative)
[2023-03-26] MEDS: COLESTIPOL HCL 1 GM TAB PO SCH (10:27)
[2023-03-26] MEDS: BISMUTH SUBSALICYLATE 262 MG CHEW PO SCH ×3 (14:17→21:02)
[2023-03-26] MEDS: metroNIDAZOLE 500 MG TAB PO SCH ×2 (14:19→20:59)
--- NOTE | 2023-03-26 16:10 | Gastrointestinal Consultation ---
Date of Consultation March 26, 2023 Assessment & Plan (1) Epigastric pain: She has chronic abdominal pain with an unrevealing workup with three basically negative EGD's, [address] scans, one negative MRI and a negative colonoscopy. She ties her symptoms starting after having what sounds like an a cute gastroenteritis following reheated food. People do get a postinfectious IBS type illness but that doesn't usually last this long. Of note H. pylori by itself does NOT cause abdominal pain. It can cause indigestion but any pain it would cause would be related to an ulcer that they are associated with. On Mar 04 she had no ulcer, no gastritis and no h. pylori on endoscopy. She gets relief when she is on antibiotics for it and this may be placebo related. I was thinking about intestinal angina but she has an MRI that shows no vascular disease. I don't recall if she has had a capsule endoscopy but I am not confident that will be revealing but it could be considered. Some people think adrenocortical insufficiency can cause abdominal pain so I will get an am fasting cortisol level. AIP is a consideration but is incredibly rare as a cause for abdominal pain. I wonder if there isn't some psychiatric problem going on here that hasn't revealed itself. At this point, after this much of an evaluation for this problem, with all tests being negative it is something that needs to be considered. History of Present Illness Reason for Consultation: abdominal pain Attending Physician: Jez Christianson MD History of Present Illness 62 year old female with abdominal pain for the better part of the past year. In the past twelve months she has had four CT scans of the abdomen and pelvis, Three EGD's with one chaves test, one colonoscopy and now and MR of the abdomen with no abnormalities. Her last EGD three weeks ago was normal and biopsy for h. pylori was negative. The Chaves test she had showed almost no reflux at all. She is admitted because the pain "got worse". She says when she eats she belches a lot and she gets burning in her upper abdomen. The burning radiates up into her chest and into her arms. She has some pain that is present 24/7 and she has some that gets worse with foods. Her bowel movements are irregular but with her description they don't seem to be tied to her abdominal pain. She is focused on h. pylori and says this is the pain she gets with h. pylori. She claims a 10 pound weight loss. She says this all started after she got sick after eating some food that she had reheated. Interestingly the pain almost never wakes her from sleep. Allergies Allergy/AdvReac Type Severity Reaction Status Date / Time vilanterol Allergy Severe Swelling Verified 03/19/23 15:43 [From Breo Ellipta] and GI Upset bacitracin Allergy Intermediate Hives Verified 03/19/23 15:43 [From Neosporin ([id number])] neomycin Allergy Intermediate Hives Verified 03/19/23 15:43 [From Neosporin ([id number])] polymyxin B Allergy Intermediate Hives Verified 03/19/23 15:43 [From Neosporin ([id number])] olmesartan AdvReac Intermediate Diarrhea Verified 03/19/23 15:43 amoxicillin [From Augmentin] AdvReac Unknown CAUSED Verified 03/19/23 15:43 C-DIFF clavulanic acid AdvReac Unknown CAUSED Verified 03/19/23 15:43 [From Augmentin] C-DIFF levofloxacin AdvReac tendinopath Verified 03/22/23 15:54 y Home Medications Medication Instructions Recorded Confirmed Type coenzyme Q10 100 mg tablet 100 mg PO QAM 09/06/18 03/22/23 History vitamin E 268 mg (400 unit) capsule 400 unit PO QAM 09/06/18 03/22/23 History inhalational spacing device #1 ea 09/22/18 03/22/23 Rx (Vortex Holding Chamber) lactobacillus combination no.4 3 3,000 mmu cells PO QAM 02/16/19 03/22/23 Histo ry billion cell capsule (Probiotic) azelastine 205.5 mcg (0.15 %) 2 spray intranasal BID 04/12/19 03/22/23 History nasal spray ascorbate calcium (vitamin C) 500 1,000 mg PO QAM PRN Other 08/06/20 03/22/23 History mg tablet multivitamin (Daily Multi-Vitamin 1 tab PO QAM 08/06/20 03/22/23 History tablet) albuterol sulfate 90 mcg/actuation 2 puff inhalation Q4H PRN 05/19/22 03/22/23 Rx aerosol inhaler (Ventolin HFA) Shortness Of Breath Or Wheezing #18 grams budesonide-formoterol HFA 80 2 inh inhalation BID 06/24/22 03/22/23 History mcg-4.5 mcg/actuation aerosol inhaler (Symbicort) omega-3 fatty acids 1,000 mg 1,000 mg PO QAM 06/24/22 03/22/23 History capsule bupropion HCl 150 mg tablet,12 hr 150 mg PO BID #180 ea 07/11/22 03/22/23 Rx sustained-release fluticasone propionate 50 1 spray intranasal DAILY 30 days 07/22/22 03/22/23 Rx mcg/actuation nasal #48 grams spray,suspension pantoprazole 40 mg tablet,delayed 40 mg PO BID #180 tabs 09/09/22 03/22/23 Rx release atorvastatin 20 mg tablet 20 mg PO HS #90 tabs 11/13/22 03/22/23 Rx hydrochlorothiazide 25 mg tablet 25 mg PO QAM 12/11/22 03/22/23 History bismuth subsalicylate 262 mg 524 mg PO QID PRN UPSET STOMACH 12/29/22 03/22/23 History tablet (Pepto-Bismol) estradiol 0.01% (0.1 mg/gram) 0.25 appful vaginal DAILY #42.5 02/12/23 03/22/23 Rx vaginal cream grams levocetirizine 5 mg tablet 5 mg PO QAM 02/13/23 03/22/23 History levothyroxine 88 mcg tablet 88 mcg PO QAM 02/13/23 03/22/23 History potassium chloride 20 mEq 30 meq PO QAM 02/13/23 03/22/23 History tablet,extended release(part/cryst) (Klor-Con M) propranolol 60 mg capsule,24 60 mg PO HS 02/13/23 03/22/23 History hr,extended release gabapentin 100 mg capsule 100 mg PO TID #270 caps 03/09/23 03/22/23 Rx molnupiravir 200 mg capsule (EUA) 800 mg (4 x 200 mg) PO Q12H 5 days 03/19/23 03/22/23 Rx (Lagevrio) #40 caps sulfamethoxazole 800 1 tab PO BID 10 days #20 tabs 03/19/23 03/22/23 Rx mg-trimethoprim 160 mg tablet (Bactrim DS) mupirocin 2 % topical ointment 1 applic topical BID PRN Other 03/21/23 03/22/23 History tamsulosin 0.4 mg capsule 0.4 mg PO .AFTERNOON 03/21/23 03/22/23 History amitriptyline 10 mg tablet 10 mg PO HS 03/22/23 03/22/23 History celecoxib 100 mg capsule 100 mg PO BID PRN Pain 03/22/23 03/22/23 History cholestyramine-aspartame 4 gram 1 ea PO TID 03/22/23 03/22/23 History oral powder (Cholestyramine Light) Patient History Medical History Encounter for pre-operative examination History of Helicobacter pylori infection Hx of Clostridium difficile infection ~ 30 yrs ago Hx of diverticulitis of colon History of COVID-19 11/2021- fatigue, congestion, cough, sore throat; resolved Hx of melanoma of skin Pulmonary embolism HX- ~30 yrs ago, after SUMAN- blood thinners x 3 months Sciatica COPD (chronic obstructive pulmonary disease) Mild emphysema/obstruction on April 2017 PFTs Mild reactive airways disease rarely uses prn inhaler Allergic rhinitis Depression with anxiety Esophageal reflux Fibromyalgia Hypertension Irritable bowel syndrome Hypothyroidism Hyperlipidemia History of asthma Surgical History History of esophagogastroduodenoscopy (EGD) Hx of cataract extraction Hx of melanoma excision stomach S/P dilation and curettage History of cryosurgery S/P laparoscopic procedure History of colonoscopy (10/12/19) 4 polyps removed, [facility], Dr. Roque S/P tonsillectomy S/P sinus surgery S/P SUMAN-BSO S/P laparoscopic cholecystectomy S/P appendectomy Family History Mother Diabetes Father Heart disease Other Asthma Cancer Gallbladder disease Hypertension Stroke Denies family history of Ovarian cancer Myocardial infarction Breast cancer Colorectal cancer Colonic polyp Uterine cancer Social History Smoking Status: Former smoker Tobacco Type: Cigarettes Age Started Using Tobacco: 18; Age Quit Using Tobacco: 58; Second Hand Exposure: Yes (in the past); Do You Dip or Chew Tobacco: No; Hx Alcohol Use: No Hx Substance Use: No Preferred Language: Mohawk Communication Ability: Effective Visual Impairment: No Limitations Hearing Ability: Normal Stretch Press Operator Required: No Beliefs That Will Affect Care: None marital status: Current Living Situation: Spouse current occupational status: disabled Feels Safe at Home: Yes Childhood Exposure to Second-Hand Smoke: Yes Dental Care, Regularly: Yes Seatbelt Use: always Sunscreen Use: Yes Do you think of yourself as: straight/heterosexual Sexual Activity: has been sexually active within the last 12 months Assistive Devices: Cane Review of Systems Review of Systems: All systems reviewed & are unremarkable except as noted in HPI & below Physical Exam Constitutional: well nourished and + ill appearing Eyes: PERRL, conjunctivae normal, anicteric sclerae Neck: trachea midline, no thyromegaly Respiratory: normal respiratory effort, lungs clear to auscultation Cardiovascular: RRR, no murmur, no edema Gastrointestinal (Abdomen): Inspection/Auscultation: abdomen normal to inspection Percussion/Palpation: + abdomen tender (diffusely tender) and abdomen soft Musculoskeletal: Extremities: extremities normal to inspection Results & Data Vital Signs (Past 12 Hours) Vital Signs Temp Pulse Resp BP Pulse Ox O2 Del Method 03/26/23 07:49 36.5 C 67 18 154/83 H 99 Room Air 03/26/23 07:40 Room Air Laboratory Results 03/26/23 Range/Units 09:17 Sodium 138 (136-145) mmol/L Potassium 3.8 (3.5-5.1) mmol/L Chloride 103 (98-107) mmol/L Carbon Dioxide 27 (21-32) mmol/L Anion Gap 8 (3-11) BUN 11 (6-23) mg/dl Creatinine 0.85 (0.6-1.2) mg/dl Est Cr Clr Drug Dosing 68.2 ml/min Est GFR ( Amer) 83.9 ml/min Est GFR (Non-Af Amer) 72.4 ml/min BUN/Creatinine Ratio 12.9 (10-20) Glucose 175 H (70-99(Fasting)) mg/dl Calcium 9.0 (8.6-10.3) mg/dl Magnesium 1.8 (1.7-2.4) mg/dl Lyme Disease IgG Ab Negative (Negative) Lyme Disease IgM Ab Negative (Negative) Diagnostic Findings Chest X-Ray 03/22/23 10:56 XR chest 1V portable HISTORY: 62 years-old Female Chest pain, nonspecific COMPARISON: 03/21/2023 TECHNIQUE: AP view of the chest FINDINGS: Cardiomediastinal and hilar silhouettes are unchanged. Atherosclerosis of the aorta. No pneumothorax, pleural effusion or airspace consolidation. Bones appear grossly intact. Degenerative changes of the shoulders and spine. IMPRESSION: No acute process. ACT 112: Negative or not required by law. The above report was generated using voice recognition software. It may contain grammatical, syntax or spelling errors. Electronically signed by: Chu Hubbard M.D. 03/22/2023 11:46 AM Abdomen/Pelvis CT 03/22/23 10:[address] WITH IV CONTRAST CT DOSE: 1023.84 mGy.cm HISTORY: Acute onset abdominal pain with diarrhea abd pain, diarrhea TECHNIQUE: Multiaxial CT images of the abdomen and pelvis were performed following the IV administration of 81 cc of Optiray, A dose lowering technique was utilized adhering to the principles of ALARA. COMPARISON STUDY: 02/13/2023 FINDINGS: Clear lung bases. No free air. Unremarkable spleen, pancreas and adrenal glands. Cholecystectomy with persistent biliary ductal dilation. The common bile duct measures 1.4 cm. Patent portal vein. No hepatic mass lesions. Mild cortical thinning of the kidneys. 7 mm nonobstructing calculus in the inferior pole left kidney. No ureteral calculi or hydronephrosis. Indeterminate 1.1 cm lesion of the superior pole right kidney again noted with Hounsfield unit of 120. Decompressed urinary bladder with wall thickening. Hysterectomy. Pelvic floor relaxation. Atherosclerosis of the aorta. No lymphadenopathy. No bowel obstruction or bowel wall thickening. Colonic diverticulosis. Appendectomy. The more caudal soft tissues. No acute fracture. IMPRESSION: 1. No acute intra-abdominal or intrapelvic abnormality. 2. 1.1 cm indeterminate lesion of the right kidney again noted, possibly a small renal cell carcinoma. 3. Nonobstructing left nephrolithiasis. 4. Colonic diverticulosis. 5. Additional findings as above. ACT 112: Negative or not required by law. The above report was generated using voice recognition software. It may contain grammatical, syntax or spelling errors. Electronically signed by: Chu Hubbard M.D. 03/22/2023 1:00 PM Abdomen MRI 03/24/23 15:07 Exam(s): MRI ABDOMEN W/WO Contrast IV Amt: 7.5cc gadavist EXAM: MR Abdomen Without and With Intravenous Contrast CLINICAL HISTORY: Reason for exam: 1cm lesion on Right kidney. TECHNIQUE: Multiplanar magnetic resonance images of the abdomen without and with intravenous contrast. CONTRAST: Patient received 7.5cc gadavist of IV contrast COMPARISON: No relevant prior studies available. FINDINGS: Lung bases: Unremarkable. No mass. No consolidation. Pleural space: Left pleural effusion. Liver: Unremarkable. No mass. Gallbladder and bile ducts: Unremarkable. No calcified stones. No ductal dilation. Pancreas: Unremarkable. No ductal dilation. No mass. Spleen: Unremarkable. No splenomegaly. Adrenals: Unremarkable. No mass. Kidneys and ureters: Unremarkable. No hydronephrosis. No solid mass. Stomach and bowel: Unremarkable. No obstruction. Intraperitoneal space: Unremarkable. No significant fluid collection. Soft tissues: Unremarkable. Vasculature: Unremarkable. No abdominal aortic aneurysm. Lymph nodes: Unremarkable. No enlarged lymph nodes. IMPRESSION: Left pleural effusion. Electronically signed by: David Torres MD 03/25/23 00:46 AM Chest X-Ray 03/25/23 08:28 SINGLE VIEW CHEST CLINICAL HISTORY: Follow-up pleural effusion FINDINGS: An AP, portable, upright chest radiograph is compared to study dated 03/22/2023. Correlation is made with abdominal CT dated 03/22/2023. The cardiomediastinal silhouette is top normal for projection. Chronic interstitial thickening similar to previous. The lungs and pleural spaces are clear. No pneumothorax is seen. The skeletal structures are osteopenic. The bony thorax is grossly intact. IMPRESSION: No active disease in the chest. ACT 112: Negative or not required by law. Electronically signed by: Tu Diez M.D. 03/25/2023 8:45 AM
[2023-03-26] MEDS: AMITRIPTYLINE HCL 10 MG TAB PO SCH (20:58)
[2023-03-26] MEDS: PROPRANOLOL HCL 60 MG LA CAP PO SCH (20:59)
[2023-03-26] MEDS: PANTOprazole 40 MG TAB PO SCH (21:00)
[2023-03-26] MEDS: ATORVASTATIN 20 MG TAB PO SCH (21:00)
[2023-03-26] MEDS: ENOXAPARIN INJ 40 MG/0.4 ML SYR SQ SCH (21:02)
[2023-03-26] MEDS: CLARITHROMYCIN 500 MG TAB PO SCH (21:03)
[2023-03-27] MEDS: ONDANSETRON INJ 2 MG/ML 2 ML VIAL IV PRN (03:36)
[2023-03-27] MEDS: DICYCLOMINE HCL 10 MG CAP PO PRN ×2 (04:03→13:03)
[2023-03-27] MEDS: LEVOTHYROXINE SODIUM 88 MCG TABLET PO SCH (05:16)
[2023-03-27] MEDS: ACETAMINOPHEN 325 MG TAB PO PRN (05:16)
--- NOTE | 2023-03-27 07:51 | Hospitalist Progress Note ---
Date of Service March 27, 2023 Assessment & Plan (1) Epigastric pain: Plan: Chronic abdominal pain/bloating, hx of IBS and H pylori - follows with [facility] GI Worsening abdominal pain since starting Bactrim and Lagevrio 03/19 --> since discontinued CTA/P: No acute intra-abdominal or intrapelvic abnormality, right kidney lesion noted pending outpatient follow-up, nonobstructing left nephrolithiasis noted, diverticulosis without diverticulitis. CXR:without acute findings Patient is pending outpatient testing for H. pylori and a urea breath test, having recommended to discontinue PPI however she never stopped this. Rescheduled her Urea breath test to April, will continue PPI use while inpatient. Continue with antiemetics, PPI, Zofran, and supportive care at this time. -03/23 added Bentyl prn and add Colestripol -Seems to have improved abdominal pain -Stool PCR studies negative -Low suspicion for upper GI bleed. Prior endoscopy did not show evidence of bleeding/ulcers. Her BUN is negative and she has not had melena/hematochezia. Hgb trended. -Dark stools reported, check fecal occult blood -- NEGATIVE Simethicone for gas pain 03/25 H pylori stool testing negative 03/23, stool testing negative, negative cdiff. Started Bentyl 10mg QID prn, colestipol 1gm daily ?Questran -- did NOT tolerate in the past ?anxiety component MRI abdomen w/o significant finding reported for kidney lesion. Noting no hematuria/RBC on prior UAs. Cannot find any prior urine cytology Notes L pleural effusion? Checked CXR -- no significant findings/no consolidation Abdominal pain much improved w/ bentyl/questran but reporting increased post- nasal drip/sinus congestion/need for antibiotic therapy. Will have CM work on ENT f/u and discuss w/ supervising provider given reported improvement on Bactrim but intolerance to the antiviral causing GI upset on admission. 03/26 increased abdominal pain, continued reports similar to H Pylori infection. Insistant on treatment rather than investigation other causes. GI consulted but discussed w/ supervising provider and will order Flagyl/clarithromycin for treatment, continue PPI. Can f/u outpt otherwise and will monitor response to treatment 03/27 -- ongoing tearful, no one will listen to her. Happy about the flagyl but unable to tolerate the clarithromycin. Discussed do not believe H Pylori/prior negative testing, GI consult (see note). Discussed Augmentin (she notes she did tolerate in past and got c-diff after having hysterectomy out at [facility], thought hospital acquired at that time and has tolerated since that time). --> Switched to Augmentin (covering more for sinusitis) -- Discussed ANXIETY/DEPRESSION contributing --> she notes she does have rx and uses RARELY for low dose xanax 0.25mg (confirmed w/ PDMP 0.25mg dose filled in February 2022) --> asked RN to administer dose x 1 NOW. Monitor response and made available as needed. (2) Depression with anxiety: Plan: Bupropion continued amitriptyline as noted above ?Cymbalta for pain?/anxiety/depression Xanax 0.25mg rx at home, filled 02/2022 and using infrequently at home/didn't want to get addicted discussed likely component of anxiety contributing to her GI symptoms Xanax 0.25mg to be provided now, made available q6h prn for now and will monitor response (3) COVID-19: Plan: No hypoxia, diarrhea improving Lagevrio held due to gastritis/intolerance No steroids indicated Flonase and Tessalon for symptom control Dry cough improving however reports WORSENING COUGH 03/26 Mucinex increased to 1200mg BID -- declining Zyrtec daily for allergy symptoms 97% on RA ?sinus infection, no sinus tenderness but reporting increased post-nasal drip - reason for her recent abx use for sinusitis --> Augmentin PO for coverage sinusitis/drainage Pt to ask to bring her home Symbicort for her underlying asthma -- utilizing in room (unable to use Breo, will discontinue) sputum cx if able to obtain -- not expectorating anything (4) Paresthesia of upper extremity: Plan: No identifiable causative factors - ?cervical impingement. Patient denies any hx of neck pain. Paresthesia are very infrequent. No issues reported regarding this 03/25 but reporting intermittent issues 03/26 ?psych component B12 wnl none 03/27 since staring the flagyl -- monitor. Xanax as above (5) Arthritis of hip: Plan: Arthritis pending outpatient follow-up for potential replacement. Also has associated bilateral tendinopathy of the lower extremities, suspected to be due to recurrent fluoroquinolone use for sinusitis. (although appears was sent on Bactrim?) Supportive care, no fluoroquinolone use Was given rx for celebrex by orthopedics, ?worsened reflux w/ NSAIDs. ON PPI at baseline/had pH study most recently (6) Mild reactive airways disease: Plan: Albuterol as noted, no wheezing on admission. no wheezing on exam but reported asthma attack in office x 2, 2nd to sinus infection -- abx for Augmentin as above. [facility] brought in own Symbicort -- utilizing in room. Order placed for home use 100% on room air (7) COPD (chronic obstructive pulmonary disease): Plan: Continue home inhalers, albuterol as needed, no acute exacerbation noted (however ?asthma exacerbation last week outpatient, abx prescribed) Home Symbicort to be brought in (8) Irritable bowel syndrome: Plan: FODMAP diet, gastritis treatment as above, diarrhea improved Bentyl as above, tx h pylori? Cortisol level NOT low (9) Fibromyalgia: Plan: Continue bupropion, amitriptyline (unable to tolerate amitriptyline -- has been refusing, reports makes her not be able to function) ?Cymbalta -- would avoid for now given multiple meds/interactions but can be considered in f/u Plan DVT prophylaxis: Lovenox Xanax for anxiety symptoms, Augmentin for sinusitis and monitoring response Hopeful improvement w/ control of anxiety/depression symptoms - consider psych consult if ongoing issues 03/27 Admission and Anticipated Discharge Date Admission Date: March 24, 2023 Supervising Physician Co-Signing Physician Notes The patient was not seen by me. The chart was reviewed. Case discussed with JOSE Perkins. Agree with assessment and plan Subjective eval this afternoon, upset stomach w/ clarithromycin, similar to prior experience. Sinus congestion/abx to be switched to Augmentin. Discussed more sinus congestion rather than concerns for H Pylori given prior negative testing and concerns with antibiotics. Discussed possible underlying depression/anxiety contributing to her GI symptoms -- further discussion she does have 17 grandchildren and 1 great grandchild and has taken PRN xanax but only takes rarely. Tearful at times -- discussed giving dose NOW to help calm nerves/monitor response. Questions/concerns addressed at this time. Physical Exam 2 Physical Exam: General: WN/WD female sitting up in bed, tearful/crying about people not listening to her and ongoing issues with antibiotics HEENT: head atraumatic, normocephalic, nasal bogginess, no lymphadenopathy, +post-nasal drip/erythema to oropharynx ?core sores to lip (improving) Resp: diminished in bases L>R, no w/c/r, on room air CV: RRR, no significant mrg, no calf edema/tenderness GI: +BS, soft, +upper abdominal tenderness IMPROVED, no guarding/rebound : no moreira MSK/Neuro: nonfocal, answering questions appropriately, strength equal bilaterally Psych: AOx3, cooperative but anxious/tearful appearing at times Results & Data Results & Data Vital Signs (Past 12 Hours) Vital Signs Temp Pulse Resp BP Pulse Ox O2 Del Method 03/27/23 07:49 62 18 133/82 100 Room Air 03/26/23 21:46 Room Air 03/26/23 20:57 36.6 C 03/26/23 20:49 68 17 138/80 95 Room Air Laboratory Results 03/25/23 06:05 03/27/23 07:06 PG Care Time/CCT Total # of Minutes Spent Total Time Spent with Patient: Total time spent is greater than 50% in coordination of care (as documented) at patient's floor/unit and/or counseling patient: Coding Level of Care Code 14950 SUB INP/OBS CARE 3/50MIN Diagnoses Epigastric pain R10.13 Depression with anxiety F41.8 COVID-19 U07.1 Paresthesia of upper extremity R20.2 Arthritis of hip M16.10 Mild reactive airways disease J45.909 COPD (chronic obstructive pulmonary disease) J44.9 Irritable bowel syndrome K58.9 Fibromyalgia M79.7
[2023-03-27 07:55] LABS: Calcium 9.5 mg/dl (8.6-10.3); Creatinine Clr Calc Pharmacy 72.5 ml/min; Est GFR (African American) 90.3 ml/min; Est GFR (Non-African American) 77.9 ml/min; Magnesium 1.8 mg/dl (1.7-2.4); Potassium 3.8 mmol/L (3.5-5.1)
[2023-03-27] MEDS: PANTOprazole 40 MG TAB PO SCH ×2 (08:09→20:35)
[2023-03-27] MEDS: POTASSIUM CHLORIDE 10 MEQ TABCR PO SCH (08:09)
[2023-03-27] MEDS: OMEGA-3 (PURIFIED FISH OIL) 1 GM CAP PO SCH (08:10)
[2023-03-27] MEDS: hydroCHLOROthiazide 25 MG TAB PO SCH (08:10)
[2023-03-27] MEDS: TOCOPHERYL, DL-ALPHA 400 UNITS 180 MG CAP PO SCH (08:10)
[2023-03-27] MEDS: CLARITHROMYCIN 500 MG TAB PO SCH (08:10)
[2023-03-27] MEDS: guaiFENesin 600 MG TABCR PO SCH ×2 (08:11→20:35)
[2023-03-27] MEDS: CETIRIZINE HCL 10 MG TABLET PO SCH (08:11)
[2023-03-27] MEDS: GABAPENTIN 100 MG CAP PO SCH ×3 (08:12→20:37)
[2023-03-27] MEDS: metroNIDAZOLE 500 MG TAB PO SCH ×3 (08:12→20:37)
[2023-03-27] MEDS: FLUTICASONE PROPIONATE NA SPR 16 GM BTL SCH (08:13)
[2023-03-27] MEDS: FLUTICASONE/VILANTEROL 100/25MCG 14 PUFFS/INHALER INH SCH (08:13)
[2023-03-27] MEDS: BENZONATATE 100 MG CAPSULE PO SCH ×3 (08:15→20:37)
[2023-03-27] MEDS: buPROPion SR 150 MG TABCR PO SCH ×2 (08:15→20:37)
[2023-03-27] MEDS: BISMUTH SUBSALICYLATE 262 MG CHEW PO SCH ×4 (08:15→20:36)
[2023-03-27] MEDS: COLESTIPOL HCL 1 GM TAB PO SCH (09:30)
[2023-03-27] MEDS: ALPRAZolam 0.25 MG TABLET PO PRN ×2 (14:06→22:10)
--- NOTE | 2023-03-27 14:38 | Gastroenterology Progress Note ---
Date of Service March 27, 2023 Assessment & Plan (1) Epigastric pain: Plan: I still have no clue what is causing her symptoms with completely negative workup. I suggested outside referral and she is willing. For now I think it worthwhile to try amitriptyline because it is good for these types of GI complaints. I would also look at her meds--tamsulosin she feels may be contributing. I wonder about gabapentin but she has been on that for years. Second opinion is worth considering. Admission and Anticipated Discharge Date Admission Date: March 24, 2023 Subjective Still not doing well. Thinks her tamsulosin may have made things worse. She also tells me she hasn't started amitriptyline because she had trouble feeling g roggy with it years ago when she tried it. She is willing to try it now if it might help Physical Exam Physical Exam: She looks upset Constitutional: WD/WN, vitals as above Results & Data Vital Signs (Past 12 Hours) Vital Signs Pulse Resp BP Pulse Ox O2 Del Method 03/27/23 07:49 62 18 133/82 100 Room Air 03/27/23 07:20 Room Air
[2023-03-27] MEDS: AMOXICILLIN/CLAVULANATE 875 MG TAB PO SCH (17:50)
[2023-03-27] MEDS: BUDESONIDE/FORMOTEROL FUMARATE 80/4.5 60 PUFFS/INHALER INH SCH (20:35)
[2023-03-27] MEDS: ATORVASTATIN 20 MG TAB PO SCH (20:35)
[2023-03-27] MEDS: PROPRANOLOL HCL 60 MG LA CAP PO SCH (20:37)
[2023-03-27] MEDS: ENOXAPARIN INJ 40 MG/0.4 ML SYR SQ SCH (20:38)
[2023-03-27] MEDS ORDERED: BUDESONIDE/FORMOTEROL FUMARATE 160/4.5 60 PUFFS/INHALER INH SCH (21:00)
[2023-03-27] MEDS: AMITRIPTYLINE HCL 10 MG TAB PO SCH (23:36)
[2023-03-28 06:16] LABS: Hemoglobin 11.6 g/dl (12.0-16.0); Mean Corpuscular Hemoglobin 27.4 pg (25.0-34.0); Mean Corpuscular Hgb Conc 31.4 g/dL (32.0-36.0); Mean Corpuscular Volume 87.5 fL (80.0-100.0); Mean Platelet Volume 9.1 fL (9.4-12.4); Platelet Count 274 K/uL (130-400); RDW Coefficient of Variation 13.9 % (11.5-14.5); RDW Standard Deviation 43.6 fL (36.4-46.3); Red Blood Count 4.23 M/uL (4.20-5.40); White Blood Count 6.66 K/ul (4.8-10.8)
[2023-03-28] MEDS: LEVOTHYROXINE SODIUM 88 MCG TABLET PO SCH (06:17)
[2023-03-28 06:34] LABS: BUN Creatinine Ratio 13.8 (10-20); Calcium 8.9 mg/dl (8.6-10.3); Creatinine Clr Calc Pharmacy 72.5 ml/min; Est GFR (African American) 90.3 ml/min; Est GFR (Non-African American) 77.9 ml/min; Potassium 3.4 mmol/L (3.5-5.1)
--- NOTE | 2023-03-28 08:04 | Hospitalist Progress Note ---
Date of Service March 28, 2023 Assessment & Plan (1) Epigastric pain: Plan: Chronic abdominal pain/bloating, hx of IBS and H pylori - follows with [facility] GI Worsening abdominal pain since starting Bactrim and Lagevrio 03/19 --> since discontinued CTA/P: No acute intra-abdominal or intrapelvic abnormality, right kidney lesion noted pending outpatient follow-up, nonobstructing left nephrolithiasis noted, diverticulosis without diverticulitis. CXR:without acute findings Patient is pending outpatient testing for H. pylori and a urea breath test, having recommended to discontinue PPI however she never stopped this. Rescheduled her Urea breath test to April, will continue PPI use while inpatient. Continue with antiemetics, PPI, Zofran, and supportive care at this time. 03/23 Bentyl/colestipol added (improved initially, then reported worsened pain and needing for Flagyl/treatment for Hpylori despite multiple negative testing) Stool PCR studies negative -Low suspicion for upper GI bleed. Prior endoscopy did not show evidence of bleeding/ulcers. Her BUN is negative and she has not had melena/hematochezia. Hgb trended. Fecal occult NEGATIVE 03/25 H pylori stool testing negative 03/23, stool testing negative, negative cdiff. Started Bentyl 10mg QID prn, colestipol 1gm daily ?Questran -- did NOT tolerate in the past ?anxiety component MRI abdomen w/o significant finding reported for kidney lesion. Noting no hematuria/RBC on prior UAs. Cannot find any prior urine cytology Notes L pleural effusion? Checked CXR -- no significant findings/no consolidation Abdominal pain much improved w/ bentyl/questran but reporting increased post- nasal drip/sinus congestion/need for antibiotic therapy. Will have CM work on ENT f/u and discuss w/ supervising provider given reported improvement on Bactrim but intolerance to the antiviral causing GI upset on admission. 03/26 increased abdominal pain, continued reports similar to H Pylori infection. Insistant on treatment rather than investigation other causes. GI consulted but discussed w/ supervising provider and will order Flagyl/clarithromycin for treatment, continue PPI. Can f/u outpt otherwise and will monitor response to treatment 03/27 ongoing tearful, no one will listen to her. Happy about the flagyl but unable to tolerate the clarithromycin. Discussed do not believe H Pylori/prior negative testing, GI consult (see note). Discussed Augmentin (she notes she did tolerate in past and got c-diff after having hysterectomy out at [facility], thought hospital acquired at that time and has tolerated since that time). --> Switched to Augmentin (covering more for sinusitis) -- Discussed ANXIETY/DEPRESSION contributing --> she notes she does have rx and uses RARELY for low dose xanax 0.25mg (confirmed w/ PDMP 0.25mg dose filled in February 2022) --> asked RN to administer dose x 1 NOW. Monitor response and made available as needed. 03/28 IMPROVEMENT reported today. Discussed STOPPING FLOMAX as new med/issues w/ sinusitis/rhinosinusitis. Continues on Augmentin. Discussed stopping flagyl however she is insistant on it. Did take elavil last night but complaints of feeling zombie like. Did get 2 doses of xanax 0.25mg 03/27 and suspect that improvement related to anxiety/stress. Discussed scheduling while inpatient 0.25mg Q8h for today and if GI symptoms at bay, possible dc on Augmentin at dc. She is inquiring about diflucan at end of course abx but discussed can arrange f/u to PCP and tx if any yeast infection however none at present. Did add renin/shaheen given hx HTN/hypokalemia for completeness to r/o other causes given chronic fatigue/muscle weakness/numbness at times, headache, etc -- send out testing can be f/u PCP. pending results, likely benefit switching to spironolactone and could dc her HCTZ as well as supplemental potassium (2) Depression with anxiety: Plan: Bupropion continued amitriptyline as noted above -- did take last night but reported feeling like a zombie I do suspect patient with a large component of anxiety/depression driving GI symptoms. Did give xanax 0.25mg x 2 doses 03/27 w/ improvement in mood today and discussed scheduling Q8H while in the hospital for now and encouraged tapering back to as needed at discharge. Stress of hospital/illness w/ COVID and fixation on treatment for Hpylori despite multiple negative testing. She notes that she "never gets a fever or signs like usual people" and that she had a pneumonia found out in the past after a million tests. I discussed she could very well have had a viral illness that turned bacterial in the past but we have checked subsequent CXR and she does not have any evidence for pneumonia, no hypoxia/sputum productoin or leukocytosis or fever or any other findings that would suggest a pneumonia at this time, but also discussed the augmentin for sinuses can cover for pneumonia as well. Supportive care provided Likely would benefit from discussion w/ cymbalta for pain as well as anxiety/depression and would rec continued discussions w/ PCP at [place] as she has concerns about addiction to xanax but discussed short term should be more than fine for use. (3) COVID-19: Plan: No hypoxia, diarrhea improving Lagevrio held due to gastritis/intolerance No steroids indicated Symptomatic support w/ Mucinex, Zyrtec for allergy/sinus reported issues Flomax new med, adverse reactions as above and decision to hold further Isolation precautions Not bringing up any sputum, no hypoxia (4) Paresthesia of upper extremity: Plan: No identifiable causative factors - ?cervical impingement. Patient denies any hx of neck pain. Paresthesia are very infrequent. No issues reported regarding this 03/25 but reporting intermittent issues 03/26 ?psych component B12 wnl Intermittent issues, suspect likely from multiple medications as well as component of anxiety/finding something wrong with her Xanax as above (5) Arthritis of hip: Plan: Arthritis pending outpatient follow-up for potential replacement. Also has associated bilateral tendinopathy of the lower extremities, suspected to be due to recurrent fluoroquinolone use for sinusitis. (although appears was sent on Bactrim?) Supportive care, no fluoroquinolone use Was given rx for celebrex by orthopedics, ?worsened reflux w/ NSAIDs. ON PPI at baseline/had pH study most recently (6) Mild reactive airways disease: Plan: Albuterol as noted, no wheezing on admission. no wheezing on exam but reported asthma attack in office x 2, 2nd to sinus infection -- abx for Augmentin as above. CM arranging [facility] in follow up brought in own Symbicort -- utilizing in room. Order placed for home use 100% on room air (7) COPD (chronic obstructive pulmonary disease): Plan: Continue home inhalers, albuterol as needed, no acute exacerbation noted (however ?asthma exacerbation last week outpatient, abx prescribed) Home Symbicort to be brought in (8) Irritable bowel syndrome: Plan: FODMAP diet, gastritis treatment as above, diarrhea improved Bentyl as above, tx h pylori? Cortisol level NOT low K 3.4 despite 30meq PO daily but on HCTZ Did check renin/shaheen given hx HTN/hypokalemia for completeness to r/o other causes given chronic fatigue/muscle weakness/numbness at times, headache, etc -- send out testing (9) Fibromyalgia: Plan: Continue bupropion, amitriptyline (unable to tolerate amitriptyline -- has been refusing, reports makes her not be able to function) ?Cymbalta -- would avoid for now given multiple meds/interactions but can be considered in f/u Plan DVT prophylaxis: Lovenox Xanax for anxiety symptoms, Augmentin for sinusitis and monitoring response Hopeful improvement w/ control of anxiety/depression symptoms - consider psych consult if ongoing issues 03/27 Admission and Anticipated Discharge Date Admission Date: March 24, 2023 Supervising Physician Co-Signing Physician Notes The patient was not seen by me. The chart was reviewed. Case discussed with JOSE Perkins. Agree with assessment and plan Subjective Eval this morning , abdomen feeeling better, 05/23. Wanting to continue the flagyl despite augmentin. Sinus improvement but still w/ issues. Discussed holding flomax-- she reports this was a new medication for her. Discussed xanax possibly w/ improvement and will change to scheduled. She does feel little sleepy/zombie like this morning similar to prior experience w/ amitriptyline and would like to avoid this tonght. Discussed scheduling xanax while inpatient in stressful/anxiety provoking environment. She was agreeable. Support provided. Discussed if symptoms stable tomorrow possible dc as will likely not get her back to 100% and covid make take some time for recovery. Questions/concerns addressed at this time. Physical Exam 2 Physical Exam: General: WN/WD female sitting up in bed, improved today, NAD, reports feeling tired/zombie like from elavil HEENT: head atraumatic, normocephalic, nasal bogginess, no lymphadenopathy, +post-nasal drip ?core sores to lip improved Resp: cta, no w/c/r, 100% on RA CV: RRR, no significant mrg, no calf edema/tenderness GI: +BS, soft, +upper abdominal tenderness IMPROVED, no guarding/rigidity on exam : no moreira MSK/Neuro: nonfocal, answering questions appropriately, strength equal bilaterally. reported numbness but sensation intact Psych: AOx3, cooperative with exam but anxious at times (however anxiousness appears improved) Results & Data Results & Data Vital Signs (Past 12 Hours) Vital Signs Temp Pulse Resp BP Pulse Ox O2 Del Method 03/28/23 07:57 36.6 C 67 16 114/68 97 Room Air 03/27/23 20:40 Room Air 03/27/23 20:31 36.6 C 66 18 132/82 97 Room Air Laboratory Results 03/28/23 05:46 03/28/23 05:46 PG Care Time/CCT Total # of Minutes Spent Total Time Spent with Patient: Total time spent is greater than 50% in coordination of care (as documented) at patient's floor/unit and/or counseling patient: Coding Level of Care Code 31952 SUB INP/OBS CARE 3/50MIN Diagnoses Epigastric pain R10.13 Depression with anxiety F41.8 COVID-19 U07.1 Paresthesia of upper extremity R20.2 Arthritis of hip M16.10 Mild reactive airways disease J45.909 COPD (chronic obstructive pulmonary disease) J44.9 Irritable bowel syndrome K58.9 Fibromyalgia M79.7
[2023-03-28] MEDS ORDERED: POTASSIUM CHLORIDE 10 MEQ TABCR PO STA (08:05)
[2023-03-28 08:51] LABS: Magnesium 1.8 mg/dl (1.7-2.4)
--- NOTE | 2023-03-28 08:51 | Gastroenterology Progress Note ---
Date of Service March 28, 2023 Assessment & Plan (1) Epigastric pain: Plan: From GI standpoint she seems to be improving. Now focused on the burning pain. Encouraged by some response, perhaps from the amitriptyline. I have no suggestions regarding her burning chest, back and arm pain. Admission and Anticipated Discharge Date Admission Date: March 24, 2023 Subjective Says stomach still hurts but not nearly as bad. Doesn't seem groggy from amitriptyline. Now she is focused on burning pain in her chest, across her back and down her left arm. Still does not accept that she doesn't have h. pylori despite negative EGD and biopsy and negative stool test Physical Exam 2 Physical Exam: She looks well Constitutional: WD/WN, vitals as above Results & Data Vital Signs (Past 12 Hours) Vital Signs Temp Pulse Resp BP Pulse Ox O2 Del Method 03/28/23 07:57 36.6 C 67 16 114/68 97 Room Air
[2023-03-28] MEDS: FLUTICASONE PROPIONATE NA SPR 16 GM BTL SCH (09:28)
[2023-03-28] MEDS: BENZONATATE 100 MG CAPSULE PO SCH ×3 (09:29→21:02)
[2023-03-28] MEDS: AMOXICILLIN/CLAVULANATE 875 MG TAB PO SCH ×2 (09:29→16:59)
[2023-03-28] MEDS: CETIRIZINE HCL 10 MG TABLET PO SCH (09:30)
[2023-03-28] MEDS: BISMUTH SUBSALICYLATE 262 MG CHEW PO SCH (09:30)
[2023-03-28] MEDS: OMEGA-3 (PURIFIED FISH OIL) 1 GM CAP PO SCH (09:30)
[2023-03-28] MEDS: GABAPENTIN 100 MG CAP PO SCH ×3 (09:30→21:01)
[2023-03-28] MEDS: TOCOPHERYL, DL-ALPHA 400 UNITS 180 MG CAP PO SCH (09:30)
[2023-03-28] MEDS: buPROPion SR 150 MG TABCR PO SCH ×2 (09:30→21:02)
[2023-03-28] MEDS: PANTOprazole 40 MG TAB PO SCH ×2 (09:31→20:59)
[2023-03-28] MEDS: metroNIDAZOLE 500 MG TAB PO SCH ×3 (09:31→21:01)
[2023-03-28] MEDS: hydroCHLOROthiazide 25 MG TAB PO SCH (09:31)
[2023-03-28] MEDS: guaiFENesin 600 MG TABCR PO SCH ×2 (09:31→21:00)
[2023-03-28] MEDS: POTASSIUM CHLORIDE 10 MEQ TABCR PO SCH (09:31)
[2023-03-28] MEDS: COLESTIPOL HCL 1 GM TAB PO SCH (09:32)
[2023-03-28] MEDS: BUDESONIDE/FORMOTEROL FUMARATE 80/4.5 60 PUFFS/INHALER INH SCH ×2 (09:32→20:58)
[2023-03-28] MEDS: ALPRAZolam 0.25 MG TABLET PO SCH ×2 (12:53→21:00)
[2023-03-28] MEDS: ENOXAPARIN INJ 40 MG/0.4 ML SYR SQ SCH (20:58)
[2023-03-28] MEDS: ATORVASTATIN 20 MG TAB PO SCH (20:59)
[2023-03-28] MEDS: PROPRANOLOL HCL 60 MG LA CAP PO SCH (21:01)
[2023-03-28] MEDS: AMITRIPTYLINE HCL 10 MG TAB PO SCH (22:58)
[2023-03-29] MEDS: ALPRAZolam 0.25 MG TABLET PO SCH ×2 (05:34→12:22)
[2023-03-29] MEDS: LEVOTHYROXINE SODIUM 88 MCG TABLET PO SCH (05:34)
--- NOTE | 2023-03-29 06:55 | Gastroenterology Progress Note ---
Date of Service March 29, 2023 Assessment & Plan (1) Epigastric pain: Plan: with regards to her GI issues she is good now. Okay with me to send home. Admission and Anticipated Discharge Date Admission Date: March 24, 2023 Subjective Complaining about her legs today. Stomach not bothering her much. Refusing amitriptyline now. Physical Exam Physical Exam: she looks well Constitutional: WD/WN, vitals as above Results & Data Vital Signs (Past 12 Hours) Vital Signs Temp Pulse Resp BP Pulse Ox O2 Del Method 03/28/23 21:00 Room Air 03/28/23 20:57 36.6 C 72 16 113/70 96 Room Air
--- NOTE | 2023-03-29 08:47 | Hospitalist Progress Note ---
Date of Service March 29, 2023 Assessment & Plan (1) Epigastric pain: Plan: Chronic abdominal pain/bloating, hx of IBS and H pylori - follows with [facility] GI Worsening abdominal pain since starting Bactrim and Lagevrio 03/19 --> since discontinued CTA/P: No acute intra-abdominal or intrapelvic abnormality, right kidney lesion noted pending outpatient follow-up, nonobstructing left nephrolithiasis noted, diverticulosis without diverticulitis. CXR:without acute findings Patient is pending outpatient testing for H. pylori and a urea breath test, having recommended to discontinue PPI however she never stopped this. Rescheduled her Urea breath test to April, will continue PPI use while inpatient. Continue with antiemetics, PPI, Zofran, and supportive care at this time. 03/23 Bentyl/colestipol added (improved initially, then reported worsened pain and needing for Flagyl/treatment for Hpylori despite multiple negative testing) Stool PCR studies negative -Low suspicion for upper GI bleed. Prior endoscopy did not show evidence of bleeding/ulcers. Her BUN is negative and she has not had melena/hematochezia. Hgb trended. Fecal occult NEGATIVE 03/25 H pylori stool testing negative 03/23, stool testing negative, negative cdiff. Started Bentyl 10mg QID prn, colestipol 1gm daily ?Questran -- did NOT tolerate in the past ?anxiety component MRI abdomen w/o significant finding reported for kidney lesion. Noting no hematuria/RBC on prior UAs. Cannot find any prior urine cytology Notes L pleural effusion? Checked CXR -- no significant findings/no consolidation Abdominal pain much improved w/ bentyl/questran but reporting increased post- nasal drip/sinus congestion/need for antibiotic therapy. Will have CM work on ENT f/u and discuss w/ supervising provider given reported improvement on Bactrim but intolerance to the antiviral causing GI upset on admission. 03/26 increased abdominal pain, continued reports similar to H Pylori infection. Insistant on treatment rather than investigation other causes. GI consulted but discussed w/ supervising provider and will order Flagyl/clarithromycin for treatment, continue PPI. Can f/u outpt otherwise and will monitor response to treatment 03/27 ongoing tearful, no one will listen to her. Happy about the flagyl but unable to tolerate the clarithromycin. Discussed do not believe H Pylori/prior negative t esting, GI consult (see note). Discussed Augmentin (she notes she did tolerate in past and got c-diff after having hysterectomy out at [facility], thought hospital acquired at that time and has tolerated since that time). --> Switched to Augmentin (covering more for sinusitis) -- Discussed ANXIETY/DEPRESSION contributing --> she notes she does have rx and uses [facility] for low dose xanax 0.25mg (confirmed w/ PDMP 0.25mg dose filled in February 2022) --> asked RN to administer dose x 1 NOW. Monitor response and made available as needed. 03/28 IMPROVEMENT reported today. Discussed STOPPING FLOMAX as new med/issues w/ sinusitis/rhinosinusitis. Continues on Augmentin. Discussed stopping flagyl however she is insistant on it. Did take elavil last night but complaints of feeling zombie like. Did get 2 doses of xanax 0.25mg 03/27 and suspect that improvement related to anxiety/stress. Discussed scheduling while inpatient 0.25mg Q8h for today and if GI symptoms at bay, possible dc on Augmentin at dc. She is inquiring about diflucan at end of course abx but discussed can arrange f/u to PCP and tx if any yeast infection however none at present. Did add renin/shaheen given hx HTN/hypokalemia for completeness to r/o other causes given chronic fatigue/muscle weakness/numbness at times, headache, etc -- send out testing can be f/u PCP. pending results, likely benefit switching to spironolactone and could dc her HCTZ as well as supplemental potassium 03/29 - labs from AM pending. Per GI note, stable GI exam/no pain , ok for return home (2) Depression with anxiety: Plan: Bupropion continued amitriptyline as noted above -- did take last night but reported feeling like a zombie I do suspect patient with a large component of anxiety/depression driving GI symptoms. Did give xanax 0.25mg x 2 doses 03/27 w/ improvement in mood today and discussed scheduling Q8H while in the hospital for now and encouraged tapering back to as needed at discharge. Stress of hospital/illness w/ COVID and fixation on treatment for Hpylori despite multiple negative testing. She notes that she "never gets a fever or signs like usual people" and that she had a pneumonia found out in the past after a million tests. I discussed she could very well have had a viral illness that turned bacterial in the past but we have checked subsequent CXR and she does not have any evidence for pneumonia, no hypoxia/sputum productoin or leukocytosis or fever or any other findings that would suggest a pneumonia at this time, but also discussed the augmentin for sinuses can cover for pneumonia as well. Supportive care provided Likely would benefit from discussion w/ cymbalta for pain as well as anxiety/depression and would rec continued discussions w/ PCP [place] as she has concerns about addiction to xanax but discussed short term should be more than fine for use. (3) COVID-19: Plan: No hypoxia, diarrhea improving Lagevrio held due to gastritis/intolerance No steroids indicated Symptomatic support w/ Mucinex, Zyrtec for allergy/sinus reported issues Flomax new med, adverse reactions as above and decision to hold further Isolation precautions Not bringing up any sputum, no hypoxia (4) Paresthesia of upper extremity: Plan: No identifiable causative factors - ?cervical impingement. Patient denies any hx of neck pain. Paresthesia are very infrequent. No issues reported regarding this 03/25 but reporting intermittent issues 03/26 ?psych component B12 wnl Intermittent issues, suspect likely from multiple medications as well as component of anxiety/finding something wrong with her Xanax as above (5) Arthritis of hip: Plan: Arthritis pending outpatient follow-up for potential replacement. Also has associated bilateral tendinopathy of the lower extremities, suspected to be due to recurrent fluoroquinolone use for sinusitis. (although appears was sent on Bactrim?) Supportive care, no fluoroquinolone use Was given rx for celebrex by orthopedics, ?worsened reflux w/ NSAIDs. ON PPI at baseline/had pH study most recently (6) Mild reactive airways disease: Plan: Albuterol as noted, no wheezing on admission. no wheezing on exam but reported asthma attack in office x 2, 2nd to sinus infection -- abx for Augmentin as above. [facility] up brought in own Symbicort -- utilizing in room. Order placed for home use 100% on room air (7) COPD (chronic obstructive pulmonary disease): Plan: Continue home inhalers, albuterol as needed, no acute exacerbation noted (however ?asthma exacerbation last week outpatient, abx prescribed) Home Symbicort to be brought in (8) Irritable bowel syndrome: Plan: FODMAP diet, gastritis treatment as above, diarrhea improved Bentyl as above, tx h pylori? Cortisol level NOT low K 3.4 despite 30meq PO daily but on HCTZ Did check renin/shaheen given hx HTN/hypokalemia for completeness to r/o other causes given chronic fatigue/muscle weakness/numbness at times, headache, etc -- send out testing (9) Fibromyalgia: Plan: Continue bupropion, amitriptyline (unable to tolerate amitriptyline -- has been refusing, reports makes her not be able to function) ?Cymbalta -- would avoid for now given multiple meds/interactions but can be considered in f/u Plan DVT prophylaxis: Lovenox Xanax for anxiety symptoms, Augmentin for sinusitis and monitoring response Hopeful improvement w/ control of anxiety/depression symptoms - consider psych consult if ongoing issues 03/27 Admission and Anticipated Discharge Date Admission Date: March 24, 2023 Results & Data Results & Data Vital Signs (Past 12 Hours) Vital Signs Temp Pulse Resp BP BP Pulse Ox O2 Del Method 03/29/23 08:29 36.6 C 70 16 116/74 97 Room Air 03/28/23 21:00 Room Air 03/28/23 20:57 36.6 C 72 16 113/70 96 Room Air PG Care Time/CCT Total # of Minutes Spent Total Time Spent with Patient: Total time spent is greater than 50% in coordination of care (as documented) at patient's floor/unit and/or counseling patient: Coding Diagnoses Epigastric pain R10.13 Depression with anxiety F41.8 COVID-19 U07.1 Paresthesia of upper extremity R20.2 Arthritis of hip M16.10 Mild reactive airways disease J45.909 COPD (chronic obstructive pulmonary disease) J44.9 Irritable bowel syndrome K58.9 Fibromyalgia M79.7
[2023-03-29] MEDS: BUDESONIDE/FORMOTEROL FUMARATE 80/4.5 60 PUFFS/INHALER INH SCH (08:49)
[2023-03-29] MEDS: FLUTICASONE PROPIONATE NA SPR 16 GM BTL SCH (08:50)
[2023-03-29] MEDS: BENZONATATE 100 MG CAPSULE PO SCH ×2 (08:50→12:23)
[2023-03-29] MEDS: AMOXICILLIN/CLAVULANATE 875 MG TAB PO SCH (08:50)
[2023-03-29] MEDS: buPROPion SR 150 MG TABCR PO SCH (08:51)
[2023-03-29] MEDS: CETIRIZINE HCL 10 MG TABLET PO SCH (08:51)
[2023-03-29] MEDS: TOCOPHERYL, DL-ALPHA 400 UNITS 180 MG CAP PO SCH (08:51)
[2023-03-29] MEDS: OMEGA-3 (PURIFIED FISH OIL) 1 GM CAP PO SCH (08:51)
[2023-03-29] MEDS: guaiFENesin 600 MG TABCR PO SCH (08:52)
[2023-03-29] MEDS: GABAPENTIN 100 MG CAP PO SCH ×2 (08:52→12:24)
[2023-03-29] MEDS: metroNIDAZOLE 500 MG TAB PO SCH ×2 (08:52→12:23)
[2023-03-29] MEDS: hydroCHLOROthiazide 25 MG TAB PO SCH (08:52)
[2023-03-29] MEDS: COLESTIPOL HCL 1 GM TAB PO SCH (08:53)
[2023-03-29] MEDS: POTASSIUM CHLORIDE 10 MEQ TABCR PO SCH (08:53)
[2023-03-29] MEDS: PANTOprazole 40 MG TAB PO SCH (08:53)
[2023-03-29 11:15] LABS: Magnesium 1.8 mg/dl (1.7-2.4); Potassium 3.6 mmol/L (3.5-5.1)
[2023-03-29 11:21] LABS: BUN Creatinine Ratio 17.6 (10-20); Creatinine Clr Calc Pharmacy 85.3 ml/min; Est GFR (African American) 107.1 ml/min; Est GFR (Non-African American) 92.4 ml/min
--- NOTE | 2023-03-29 11:29 | Discharge Summary ---
Date of Service March 29, 2023 Admission HPI Per Admitting Provider Awa is a 62-year-old female with a past medical history of abdominal pain who presented to the ER with diarrhea and chest discomfort yesterday and discharged home after normal workup. Positive COVID in ER. Pain did go down her arms, workup yesterday was OK. went home, abdominal/epigastric pain continued. Morphine zofran GI cocktail worsened her symptoms. Pt was diaphoretic and with pain, was recommended for ER evauation Fever a few days ago, this has improved. No shortness of breath. No chest pain. "Would be OK if I wasn't so nauseas and stomach wasn't so bad." Cough is improving, sinus congestion is improving. SInus with yellow mucous which is improved slightly today. Has been on bactrim for sinusitis for 4 days, did not take today. Urea breath test. Had h pylori years ago. Hx c diff years ago. She has had ongoing issues with gastritis in the past few weeks and is pending H. pylori urea breath testing as an outpatient.Had antigen testing several months ago which was negative. She feels taking medicines upsets her stomach and she will go home if she could keep her medications down but has not been able to. Denies bright red blood per rectum and melena. No lightheadedness or dizziness. She denies a history of GI bleed. She has had an endoscopy last 12/2022 which showed polyps otherwise normal stomach and duodenum. Last saw GI 02/2023 and at that type was noted to have abdominal discomfort and bloating chronically with history of IBS, repeat EGD with antral biopsies were pending given history of H. pylori and was continued on IBS treatment/diet. Patient was recommended to discontinue Protonix and discussed that this could decrease the yield of H. pylori testing however she has taken this and notes that she has tolerable symptoms without. No chest pain, chest pressure today. No SoB. denies wheezing. Medical History: Reviewed Medications: Reviewed Surgical History: Reviewed Family history: Reviewed Allergies: Reviewed Social History: NO tobacco or etoh Code Status: FUll Admission Exam Per Admitting Provider General: A&Ox3. NAD. Cooperative. HEENT: Atraumatic, normocephalic. Pupils equal and reactive to light and accommodation, vision and hearing grossly intact Pulm: CTAB A&P. -wheezes, -rales, -rhonchi. Symmetrical chest rise. No increased work of breathing. No respiratory distress. Cardiac: RRR, -mrg. Radial pulses intact and symmetrical. Abdominal: Focal epigastric tenderness to palpation. Otherwise abdomen is nontender, soft and without rebound. No CVA tenderness Extremities: Warm, dry. Results CBC Principal Diagnosis COVID, ABdominal pain, gastritis, anxiety Discharge Exam General: WN/WD female sitting up in bed, improved today, NAD, reports feeling tired/zombie like from elavil HEENT: head atraumatic, normocephalic, nasal bogginess, no lymphadenopathy, +post-nasal drip ?core sores to lip improved Resp: cta, no w/c/r, 100% on RA CV: RRR, no significant mrg, no calf edema/tenderness GI: +BS, soft, +upper abdominal tenderness IMPROVED, no guarding/rigidity on exam : no moreira MSK/Neuro: nonfocal, answering questions appropriately, strength equal bilaterally. reported numbness but sensation intact Psych: AOx3, cooperative with exam but anxious at times (however anxiousness appears improved) Discharge Data Allergies Allergy/AdvReac Type Severity Reaction Status Date / Time vilanterol Allergy Severe Swelling Verified 03/19/23 15:43 [From Breo Ellipta] and GI Upset bacitracin Allergy Intermediate Hives Verified 03/19/23 15:43 [From Neosporin ([id number])] neomycin Allergy Intermediate Hives Verified 03/19/23 15:43 [From Neosporin ([id number])] polymyxin B Allergy Intermediate Hives Verified 03/19/23 15:43 [From Neosporin ([id number])] olmesartan AdvReac Intermediate Diarrhea Verified 03/19/23 15:43 amoxicillin [From Augmentin] AdvReac Unknown CAUSED Verified 03/19/23 15:43 C-DIFF clavulanic acid AdvReac Unknown CAUSED Verified 03/19/23 15:43 [From Augmentin] C-DIFF levofloxacin AdvReac tendinopath Verified 03/22/23 15:54 y Consultations 03/26/23 09:20 Consult Gastroenterology Routine Ordered Studies Chest X-Ray 03/22/23 10:56 XR chest 1V portable HISTORY: 62 years-old Female Chest pain, nonspecific COMPARISON: 03/21/2023 TECHNIQUE: AP view of the chest FINDINGS: Cardiomediastinal and hilar silhouettes are unchanged. Atherosclerosis of the aorta. No pneumothorax, pleural effusion or airspace consolidation. Bones appear grossly intact. Degenerative changes of the shoulders and spine. IMPRESSION: No acute process. ACT 112: Negative or not required by law. The above report was generated using voice recognition software. It may contain grammatical, syntax or spelling errors. Electronically signed by: Chu Hubbard M.D. 03/22/2023 11:46 AM Abdomen/Pelvis CT 03/22/23 10:[address] WITH IV CONTRAST CT DOSE: 1023.84 mGy.cm HISTORY: Acute onset abdominal pain with diarrhea abd pain, diarrhea TECHNIQUE: Multiaxial CT images of the abdomen and pelvis were performed following the IV administration of 81 cc of Optiray, A dose lowering technique was utilized adhering to the principles of ALARA. COMPARISON STUDY: 02/13/2023 FINDINGS: Clear lung bases. No free air. Unremarkable spleen, pancreas and adrenal glands. Cholecystectomy with persistent biliary ductal dilation. The common bile duct measures 1.4 cm. Patent portal vein. No hepatic mass lesions. Mild cortical thinning of the kidneys. 7 mm nonobstructing calculus in the in ferior pole left kidney. No ureteral calculi or hydronephrosis. Indeterminate 1.1 cm lesion of the superior pole right kidney again noted with Hounsfield unit of 120. Decompressed urinary bladder with wall thickening. Hysterectomy. Pelvic floor relaxation. Atherosclerosis of the aorta. No lymphadenopathy. No bowel obstruction or bowel wall thickening. Colonic diverticulosis. Appendectomy. The more caudal soft tissues. No acute fracture. IMPRESSION: 1. No acute intra-abdominal or intrapelvic abnormality. 2. 1.1 cm indeterminate lesion of the right kidney again noted, possibly a small renal cell carcinoma. 3. Nonobstructing left nephrolithiasis. 4. Colonic diverticulosis. 5. Additional findings as above. ACT 112: Negative or not required by law. The above report was generated using voice recognition software. It may contain grammatical, syntax or spelling errors. Electronically signed by: Chu Hubbard M.D. 03/22/2023 1:00 PM Abdomen MRI 03/24/23 15:07 Exam(s): MRI ABDOMEN W/WO Contrast IV Amt: 7.5cc gadavist EXAM: MR Abdomen Without and With Intravenous Contrast CLINICAL HISTORY: Reason for exam: 1cm lesion on Right kidney. TECHNIQUE: Multiplanar magnetic resonance images of the abdomen without and with intravenous contrast. CONTRAST: Patient received 7.5cc gadavist of IV contrast COMPARISON: No relevant prior studies available. FINDINGS: Lung bases: Unremarkable. No mass. No consolidation. Pleural space: Left pleural effusion. Liver: Unremarkable. No mass. Gallbladder and bile ducts: Unremarkable. No calcified stones. No ductal dilation. Pancreas: Unremarkable. No ductal dilation. No mass. Spleen: Unremarkable. No splenomegaly. Adrenals: Unremarkable. No mass. Kidneys and ureters: Unremarkable. No hydronephrosis. No solid mass. Stomach and bowel: Unremarkable. No obstruction. Intraperitoneal space: Unremarkable. No significant fluid collection. Soft tissues: Unremarkable. Vasculature: Unremarkable. No abdominal aortic aneurysm. Lymph nodes: Unremarkable. No enlarged lymph nodes. IMPRESSION: Left pleural effusion. Electronically signed by: David Torres MD 03/25/23 00:46 AM Chest X-Ray 03/25/23 08:28 SINGLE VIEW CHEST CLINICAL HISTORY: Follow-up pleural effusion FINDINGS: An AP, portable, upright chest radiograph is compared to study dated 03/22/2023. Correlation is made with abdominal CT dated 03/22/2023. The cardiomediastinal silhouette is top normal for projection. Chronic interstitial thickening similar to previous. The lungs and pleural spaces are clear. No pneumothorax is seen. The skeletal structures are osteopenic. The bony thorax is grossly intact. IMPRESSION: No active disease in the chest. ACT 112: Negative or not required by law. Electronically signed by: Tu Diez M.D. 03/25/2023 8:45 AM Hospital Course (1) Epigastric pain: Chronic abdominal pain/bloating, hx of IBS and H pylori - follows with [facility] GI Worsening abdominal pain since starting Bactrim and Lagevrio 03/19 --> since discontinued CTA/P: No acute intra-abdominal or intrapelvic abnormality, right kidney lesion noted pending outpatient follow-up, nonobstructing left nephrolithiasis noted, diverticulosis without diverticulitis. CXR:without acute findings Patient is pending outpatient testing for H. pylori and a urea breath test, having recommended to discontinue PPI however she never stopped this. Rescheduled her Urea breath test to April, will continue PPI use while inpatient. Continued with antiemetics, PPI, Zofran, and supportive care at this time. 03/23 Bentyl/colestipol added (improved initially, then reported worsened pain and needing for Flagyl/treatment for Hpylori despite multiple negative testing) Stool PCR studies negative -Low suspicion for upper GI bleed. Prior endoscopy did not show evidence of bleeding/ulcers. Her BUN is negative and she has not had melena/hematochezia. Hgb trended. Fecal occult NEGATIVE 03/25 H pylori stool testing negative 03/23, stool testing negative, negative cdiff. Started Bentyl 10mg QID prn, colestipol 1gm daily ?Questran -- did NOT tolerate in the past ?anxiety component MRI abdomen w/o significant finding reported for kidney lesion. Noting no hematuria/RBC on prior UAs. Cannot find any prior urine cytology Notes L pleural effusion? Checked CXR -- no significant findings/no consolidation Abdominal pain much improved w/ bentyl/questran but reporting increased post- nasal drip/sinus congestion/need for antibiotic therapy. Will have CM work on ENT f/u and discuss w/ supervising provider given reported improvement on Bactrim but intolerance to the antiviral causing GI upset on admission. 03/26 increased abdominal pain, continued reports similar to H Pylori infection. Insistant on treatment rather than investigation other causes. GI consulted but discussed w/ supervising provider and will order Flagyl/clarithromycin for treatment, continue PPI. Can f/u outpt otherwise and will monitor response to treatment 03/27 ongoing tearful, no one will listen to her. Happy about the flagyl but unable to tolerate the clarithromycin. Discussed do not believe H Pylori/prior negative testing, GI consult (see note). Discussed Augmentin (she notes she did tolerate in past and got c-diff after having hysterectomy out at [facility], thought hospital acquired at that time and has tolerated since that time). --> Switched to Augmentin (covering more for sinusitis) -- Discussed ANXIETY/DEPRESSION contributing --> she notes she does have rx and uses RARELY for low dose xanax 0.25mg (confirmed w/ PDMP 0.25mg dose filled in February 2022) --> asked RN to administer dose x 1 NOW. Monitor response and made available as needed. 03/28 IMPROVEMENT reported today. Discussed STOPPING FLOMAX as new med/issues w/ sinusitis/rhinosinusitis. Continues on Augmentin. Discussed stopping flagyl however she is adamandt about continuing on such given reported improvement. Did take elavil last night but complaints of feeling zombie like and wanted to avoid Did get 2 doses of xanax 0.25mg 03/27 and suspect that improvement related to anxiety/stress. Discussed scheduling while inpatient 0.25mg Q8h for today and if GI symptoms at bay, possible dc on Augmentin at nm. She is inquiring about diflucan at end of course abx but discussed can arrange f/u to PCP and tx if any yeast infection however none at present. Did add renin/shaheen given hx HTN/hypokalemia for completeness to r/o other causes given chronic fatigue/muscle weakness/numbness at times, headache, etc -- send out testing can be f/u PCP. pending results, likely benefit switching to spironolactone and could dc her HCTZ as well as supplemental potassium 03/29 -Labs this morning w/ stable electrolytes/renal function. Patient reports abdominal pain much improved, ~2/10 and tolerable to dc home and has been eating/drinking without issues. Bowel movements around her baseline w/ loose in AM and regular throughout the day. Augmentin BID at nm for sinusitis/discontinued flomax given possible adv erse reaction and new medication. Discussed to discuss second opinion from another GI group at nm if any ongoing /repeated issues. She is comfortable on the xanax and did discuss I suspect large component anxiety driven -- rx 14 more tablets to take 2-3 times over next day or so then taper back to her usual as needed and have discussions w/ PCP about possibly adding something like cymbalta (?in addition vs in lieu of her wellbutrin) for anxiety/depression and pain control as she does not want to be on joint terminal attack controller benzos, agreed. (2) Depression with anxiety: Bupropion continued amitriptyline as noted above -- did take last night but reported feeling like a zombie I suspect patient with a large component of anxiety/depression driving GI symptoms. Did give xanax 0.25mg x 2 doses 03/27 w/ improvement in mood and discussed scheduling Q8H while in the hospital for now and encouraged tapering back to as needed at discharge. Stress of hospital/illness w/ COVID and fixation on treatment for Hpylori despite multiple negative testing. She notes that she "never gets a fever or signs like usual people" and that she had a pneumonia found out in the past after a million tests. I discussed she could very well have had a viral illness that turned bacterial in the past but we have checked subsequent CXR and she does not have any evidence for pneumonia, no hypoxia/sputum productoin or leukocytosis or fever or any other findings that would suggest a pneumonia at this time, but also discussed the augmentin for sinuses can cover for pneumonia as well. Supportive care provided and as above rx for 14 tablets xanax provided. Prior rx from over a year ago and uses sparignly but again suspect large component of anxiety contributing to symptoms Likely would benefit from discussion w/ cymbalta for pain as well as anxiety/depression and would rec continued discussions w/ PCP at dc as she has concerns about addiction to xanax but discussed short term should be more than fine for use. (3) COVID-19: No hypoxia, diarrhea improving/bowels back. Symptomatic care w/ antihistamine/flonase. Lagevrio held due to gastritis/intolerance No steroids indicated Isolation precautions Not bringing up any sputum production. Dc flomax for concerns related sinus issues/reaction. Outpt ENT f/u per navigator arranged and given # for patient to call (4) Paresthesia of upper extremity: No identifiable causative factors - ?cervical impingement. Patient denies any hx of neck pain. Paresthesia are very infrequent. No issues reported regarding this 03/25 but reporting intermittent issues 03/26 ?psych component as above. Improvement since benzos, B12 wnl, but also checked Vit D which was low and she is going to continue OTC supplementation w/ zinc 125mcg vit D daily (5) Arthritis of hip: Arthritis pending outpatient follow-up for potential replacement. Also has associated bilateral tendinopathy of the lower extremities, suspected to be due to recurrent fluoroquinolone use for sinusitis. (although appears was sent on Bactrim?) Supportive care, no fluoroquinolone use Was given rx for celebrex by orthopedics, ?worsened reflux w/ NSAIDs. ON PPI at baseline/had pH study most recently and continued such. No issues reported at present and cleared by PT for return home (6) Mild reactive airways disease: Albuterol as noted, no wheezing on admission. no wheezing on exam but reported asthma attack in office x 2, 2nd to sinus infection -- abx for Augmentin as above. brought in own Symbicort -- utilizing in room and order placed for home inhaler use 97% on room air prior to dc, no wheezing/sputum production CM arranging [facility] in follow up (7) COPD (chronic obstructive pulmonary disease): Continue home inhalers, albuterol as needed, no acute exacerbation noted (however ?asthma exacerbation last week outpatient, abx prescribed) Home Symbicort brought in Augmentin for sinusitis as above, should cover for any possible exacerbation however no sputum production reported/hypoxia (8) Irritable bowel syndrome: FODMAP diet, gastritis treatment as above, diarrhea improved Bentyl as above, tx h pylori? Cortisol level NOT low K 3.4 despite 30meq PO daily but on HCTZ and additional PO replacement ordered w/ normal labs on repeat Did check renin/shaheen given hx HTN/hypokalemia for completeness to r/o other causes given chronic fatigue/muscle weakness/numbness at times, headache, etc -- send out testing f/u PCP for sent out testing Consider 2nd opinion/ref to another GI at dc discussed (9) Fibromyalgia: Continued bupropion Amitriptyline continued but pt unable to tolerate amitriptyline -- had been refusing, reports makes her not be able to function. Took x 1 per GI w/ reported side effects and not wanting to continue. Xanax as above Consideration for cymbalta as outlined in f/u with PCP Plan DVT prophylaxis: Lovenox utilized while inpaitent Dc to home w/ Total Time Total Time Spent Total Time Spent (In Minutes): 50 Discharge Plan Discharge Items Patient Disposition: Home - Self-Care Reason For Visit: EPIGASTRIC PAIN, N/V Discharge Diagnosis: COVID-19, Epigastric Pain/Gastritis Condition on Discharge: Good Goals: You have been hospitalized for an acute medical problem. During your stay at [facility], we have made an effort to correct the problem that brought you to the hospital while keeping you as comfortable as possible. Medications were used to bring your condition under control and your discharge instructions will include directions for any medications you should take after leaving the hospital. Please make sure you see your Primary Care Provider as part of your follow up plan. Activity: Resume your previous activity Non-emergency contact: Primary Care Provider and Specialist Call non-emergency contact if: you have any medication questions, your symptoms worsen, your pain is concerning for you and you have a fever Follow-up/Referrals: Hansel Harris, [Primary Care Provider] - 03/31/23 1:00 pm (APPOINTMENT WITH DR OSBORNE) Diet: Heart Healthy Addtl Attending Provider Instructions: You have been hospitalized for abdominal pain and found to be positive for covid. Stool testing was negative. Chest imaging was negative for pneumonia and you remained on room air without fever or elevated white count. GI was consulted and did not feel treatment for H Pylori was necessary and you can follow up with a second opinion with your primary care provider. I have contacted case management for ENT follow up and [facility] should be reaching out to you to schedule an appointment. If you do not hear from them, please call [phone]. We have started and sent a prescription for Augmentin that will cover for sinuses as well as an aerobic bacteria to complete the course. You are continued on Bentyl up to four times daily as needed for abdominal pain/spasm and should continue the colestipol once daily. As discussed, we would recommend you STOP your flomax as they can make sinus i ssues worse. You should continue your xanax for anxiety at discharge as I do suspect this can be contributing to your symptoms. I have sent an additional 14 tablets than you can take 2-3 daily (every 8 hours) for the next day or two and then go back to your usual dosing/as needed. Primary care can see about discussing possibly something like Cymbalta for pain which can also help with depression/anxiety. We have checked a vitamin D level and this was low and you should be on daily replacement. Deficiency can contribute the bone pain, tingly sensation in hands/feet as well as muscle weakness. You can continue your over the counter supplementation as discussed. I have sent out additional lab testing to be follow up with primary care for evaluation of additional causes and have messaged them prior to discharge. You should follow up with primary care in the next week to monitor your progress. Please return to the ER with any worsening shortness of breath, fevers/chills, chest pain, uncontrolled/worsened abdominal pain or for any other symptoms concerning for you. It has been a pleasure being a part of the medical team providing for you while you have been in the hospital. Take care! Pending Studies at Discharge: Yes Studies:: Renin/Aldosterone Stand-Alone Forms: [facility], Smoking Cessation Medications and DC Order Prescriptions: New amoxicillin-pot clavulanate 875-125 mg Tablet 1 tab PO BIDM 5 Days Qty: 10 0RF metronidazole 500 mg Tablet 500 mg PO TID 4 Days Qty: 12 0RF alprazolam 0.25 mg Tablet 0.25 mg PO Q8H PRN (Reason: anxiety) Qty: 14 0RF colestipol [Colestid] 1 gram Tablet 1 g PO DAILY@1000 Qty: 30 0RF dicyclomine 10 mg Capsule 10 mg PO QID PRN (Reason: abdominal pain) Qty: 60 0RF Continued albuterol sulfate [Ventolin HFA] 90 mcg/actuation HFA aerosol inhaler 2 puff inhalation Q4H PRN (Reason: Shortness Of Breath Or Wheezing) Qty: 18 5RF bupropion HCl 150 mg tablet sustained-release 12 hr 150 mg PO BID Qty: 180 3RF fluticasone propionate 50 mcg/actuation spray,suspension 1 spray intranasal DAILY 30 Days Qty: 48 3RF Rx Instructions: 1 SPRAY IN EACH NOSTRIL DAILY pantoprazole 40 mg tablet,delayed release (DR/EC) 40 mg PO BID Qty: 180 3RF atorvastatin 20 mg tablet 20 mg PO HS Qty: 90 3RF estradiol 0.01 % (0.1 mg/gram) cream 0.25 appful vaginal DAILY Qty: 42.5 2RF Rx Instructions: Use daily for 14 days; use three times a week for 14 days; use 2-3 times a week after gabapentin 100 mg capsule 100 mg PO TID Qty: 270 3RF Lagevrio (EUA) 200 mg capsule 800 mg PO Q12H 5 Days Qty: 40 0RF hydrochlorothiazide 25 mg tablet 25 mg PO QAM (DME) Vortex Holding Chamber spacer See Dose Instructions .ROUTE .MEDSUPPLY Qty: 1 0RF Dose Instruction: As directed Rx Instructions: As directed ascorbate calcium (vitamin C) 500 mg tablet 1,000 mg PO QAM PRN (Reason: Other) multivitamin [Daily Multi-Vitamin] Tablet 1 tab PO QAM vitamin E 400 unit Capsule 400 unit PO QAM coenzyme Q10 100 mg Tablet 100 mg PO QAM Probiotic 3 billion cell capsule 3,000 mmu cells PO QAM Rx Instructions: with meals azelastine 0.15 % (205.5 mcg) spray,non-aerosol 2 spray INTNAS BID Rx Instructions: administer into each nostril propranolol 60 mg capsule,extended release 24 hr 60 mg PO HS potassium chloride [Klor-Con M20] 20 mEq tablet,ER particles/crystals 30 meq PO QAM levothyroxine 88 mcg tablet 88 mcg PO QAM levocetirizine 5 mg tablet 5 mg PO QAM Rx Instructions: TAKE 1 TABLET BY MOUTH EVERY DAY FOR ALLERGY SYMPTOMS celecoxib 100 mg capsule 100 mg PO BID PRN (Reason: Pain) omega-3 fatty acids 1,000 mg Capsule 1,000 mg PO QAM budesonide-formoterol [Symbicort] 80-4.5 mcg/actuation HFA aerosol inhaler 2 inh inhalation BID Hold Instructions: Gastritis Rx Instructions: INHALE 2 PUFFS INTO THE LUNGS TWICE A DAY Pepto-Bismol 262 mg Tablet 524 mg PO QID PRN (Reason: UPSET STOMACH) mupirocin 2 % ointment 1 applic TOPICAL BID PRN (Reason: Other) Discontinued sulfamethoxazole-trimethoprim [Bactrim DS] 800-160 mg tablet 1 tab PO BID 10 Days Qty: 20 0RF amitriptyline 10 mg tablet 10 mg PO HS Rx Instructions: take 3 hours or more after welbutrin Cholestyramine Light 4 gram powder 1 ea PO TID tamsulosin 0.4 mg capsule 0.4 mg PO .AFTERNOON Discharge Orders: Discharge Order (Routine); Ordered 03/29/23 Ordered By: Lisy Garcia/Other Patient Handouts: COVID-19 Home Care Admission Data Admit Date/Time: 03/24/23 13:48 Attending Provider: Jez Christianson Admit Provider: Justin Bales Primary Care Provider: Hansel Harris Other Providers: Lina Jain Jr Other Interventions: Discharge Summary Assessment (RN) Last Done: 03/29/23 12:09 Coding Level of Care Code 46341 INP/OBS DISCH >30 MIN Diagnoses Epigastric pain R10.13 Depression with anxiety F41.8 COVID-19 U07.1 Paresthesia of upper extremity R20.2 Arthritis of hip M16.10 Mild reactive airways disease J45.909 COPD (chronic obstructive pulmonary disease) J44.9 Irritable bowel syndrome K58.9 Fibromyalgia M79.7
== END 2023-03-29 12:56 | disposition home or self-care (01) | DRG 391 ==
LOC: ED 10:12 → 3E 10:12 → SUATTDRO 16:08 → 3E 19:46 → SUATTDRO 03-24 13:48

== ENCOUNTER 2023-04-13 19:05 | Observation (INO) ==
[2023-04-13] MEDS ORDERED: SODIUM CHLORIDE 0.9% 500 ML IV STA (19:14)
[2023-04-13] MEDS ORDERED: ONDANSETRON INJ 2 MG/ML 2 ML VIAL IV STA ×2 (19:14→21:09)
[2023-04-13 19:42] LABS: Basophils # (auto) 0.05 K/uL (0.00-0.20); Basophils % (auto) 0.7 %; Eosinophils # (auto) 0.11 K/uL (0.00-0.50); Eosinophils % (auto) 1.5 %; Hematocrit (blood only) 41.2 % (37.0-47.0); Hemoglobin 13.1 g/dl (12.0-16.0); Immature Granulocytes # (auto) 0.07 K/uL (0.01-0.20); Lymphocytes # (auto) 1.43 K/uL (1.20-3.40); Lymphocytes % (auto) 20.1 %; Mean Corpuscular Hemoglobin 27.2 pg (25.0-34.0); Mean Corpuscular Hgb Conc 31.8 g/dL (32.0-36.0); Mean Corpuscular Volume 85.7 fL (80.0-100.0); Monocytes # (auto) 0.59 K/uL (0.11-0.59); Monocytes % (auto) 8.3 %; Neutrophils # (auto) 4.87 K/uL (1.40-6.50); Neutrophils % (auto) 68.4 %; Platelet Count 285 K/uL (130-400); RDW Coefficient of Variation 13.4 % (11.5-14.5); RDW Standard Deviation 41.9 fL (36.4-46.3); Red Blood Count 4.81 M/uL (4.20-5.40); White Blood Count 7.12 K/ul (4.8-10.8)
[2023-04-13 19:58] LABS: Alanine Aminotransferase 18 U/L (7-52); Albumin Globulin Ratio 1.1 (0.9-2); Albumin Level 3.9 gm/dl (3.4-5.0); Alkaline Phosphatase 59 U/L (34-104); Anion Gap 10 (3-11); Aspartate Aminotransferase 17 U/L (13-39); Bilirubin,Total 0.4 mg/dl (0.2-1.0); Blood Urea Nitrogen 12 mg/dl (6-23); Calcium 9.5 mg/dl (8.6-10.3); Carbon Dioxide 28 mmol/L (21-32); Chloride 100 mmol/L (98-107); Est GFR (African American) 90.3 ml/min; Est GFR (Non-African American) 77.9 ml/min; Globulin 3.5 gm/dl (2.5-4.0); Glucose 105 mg/dl (70-99(Fasting)); Lipase 12 U/L (11-82); Potassium 3.4 mmol/L (3.5-5.1); Sodium 138 mmol/L (136-145); Total Protein 7.4 gm/dl (6.0-8.3)
--- NOTE | 2023-04-13 21:05 | Emergency Department Note ---
Impression & Plan Abdominal pain, Post-op pain ED Provider Note NAME: IRAIS MCCARTHY AGE: 62 SEX: F : 1960 ARRIVES VIA: Walk-In INFORMANT: Patient ED PROVIDER(S): David Evans DO CHIEF COMPLAINT: abdominal pain HPI: Patient is a 62-year-old female who presents to the ER for epigastric abdominal pain associated with nausea and intermittent vomiting. This started yesterday with the pain. She notes she has left flank pain and lower pelvic pain status postplacement of left ureteral stent done on the by Dr. Park. Patient denies any chest pain but does have a cough and congestion which has been present for the past 24 hours. No other exacerbating or remitting factors ADDITIONAL HISTORY OBTAINED: Per HPI Chronic Medical/Social Conditions Affecting Care: Per HPI PAST MEDICAL HISTORY:See Below PAST SURGICAL HISTORY:See Below FAMILY HISTORY:See Below SOCIAL HISTORY:See Below HOME MEDICATIONS:See Below ALLERGIES:See Below VITALS:See Below PHYSICAL EXAMINATION: GENERAL: Sitting up in bed, alert, significant distress, tearful, holding abdomen EYE EXAM: normal conjunctiva. OROPHARYNX: no exudate, no erythema, lips, buccal mucosa, and tongue normal and mucous membranes are moist NECK: supple, no nuchal rigidity, no adenopathy, non-tender LUNGS: Clear to auscultation. Normal chest wall mechanics HEART: no murmurs, S1 normal and S2 normal ABDOMEN: abdomen soft, tender to palpation supraumbilically, normo-active bowel sounds, no masses, no rebound or guarding. UPPER EXTREMITIES: upper extremities are grossly normal. LOWER EXTREMITIES: No pitting edema. NEURO EXAM: Normal sensorium, cranial nerves II-XII grossly intact, normal speech, no gross weakness of arms, no gross weakness of legs. MEDICAL DECISION MAKING: Patient is a 62-year-old female who presents ER for above-stated complaint. IV was established blood work is obtained. Labs show no significant leukocytosis or anemia. BMP with mild hypokalemia at 3.4. LFTs bilirubin was unremarkable. Lipase was normal. Patient was given 2 doses of IV morphine, Zofran and fluids. She was also given IV Toradol. Patient was updated bedside and discussed with the hospitalist for further evaluation management treatment. Do favor her pain is likely secondary to the stent. Biliary tree had slight dilation but there is no elevation bilirubin or lfts. Patient was admitted pending UA. Consults/Care Managements Discussions: Per MDM Triage Nursing notes reviewed. Limited review of prior medical records performed Vital Signs: reviewed and remarkable for no significant abnormalities Differential diagnosis: Differential diagnoses includes but is not limited to gastritis, peptic ulcer disease, GERD, gallbladder disease, pancreatitis, small bowel obstruction, appendicitis, diverticulitis, hernia, urinary tract infection, torsion, perforation, trauma, infectious. ER treatment provided: See below Diagnostics interpreted by me include EKG and cardiac monitoring as listed below: -Cardiac Monitoring: An order was placed for continuous cardiac monitoring. The monitor shows a rate of 90 with sinus rhythm. -ECG: none -Laboratory studies:Interpreted by me as stated above in MDM and shown below. Imaging studies: Xrays: As interpreted by me: KUB per my interpretation showed stent in the left kidney. CTs show: CT abdomen pelvis showed no acute pathology per radiology. Procedures:none Critical Care: None Past Med/Surg History Medical History Renal mass [place] [facility] aware, monitoring Osteoarthritis Kidney stones current History of Helicobacter pylori infection Hx of Clostridium difficile infection Remote hx approximately 30 years ago Hx of diverticulitis of colon History of COVID-19 03/19/2023 ([place], [place]) > resolved 11/2021- fatigue, congestion, cough, sore throat > resolved Hx of melanoma of skin Pulmonary embolism Remote hx approximately 30 years ago, after SUMAN (blood thinners x 3 months) Sciatica COPD (chronic obstructive pulmonary disease) Mild reactive airways disease Allergic rhinitis Depression with anxiety Esophageal reflux Fibromyalgia Hypertension Irritable bowel syndrome Hypothyroidism Hyperlipidemia History of asthma Surgical History Hx of vascular surgery Dr Morales [facility] 07/2022 Distal LT GSV accessed under ultrasound guidance with placement of 4Fr sheath History of esophagogastroduodenoscopy (EGD) Hx of cataract extraction Hx of melanoma excision stomach S/P dilation and curettage History of cryosurgery S/P laparoscopic procedure History of colonoscopy (10/12/19) 4 polyps removed, [facility], Dr. Roque S/P tonsillectomy S/P sinus surgery S/P SUMAN-BSO S/P laparoscopic cholecystectomy S/P appendectomy Family History Mother Diabetes Father Heart disease Other Asthma Cancer Gallbladder disease Hypertension Stroke Denies family history of Ovarian cancer Myocardial infarction Breast cancer Colorectal cancer Colonic polyp Uterine cancer Social History Smoking Status: Never smoker Tobacco Type: Cigarettes Age Started Using Tobacco: 18; Age Quit Using Tobacco: 58; Second Hand Exposure: No; Do You Dip or Chew Tobacco: No; Hx Alcohol Use: No Hx Substance Use: No Preferred Language: Icelandic Communication Ability: Effective Visual Impairment: No Limitations Hearing Ability: Normal Country Sales Manager Required: No Beliefs That Will Affect Care: None marital status: Current Living Situation: Spouse current occupational status: disabled Feels Safe at Home: Yes Childhood Exposure to Second-Hand Smoke: Yes Dental Care, Regularly: Yes Seatbelt Use: always Sunscreen Use: Yes Do you think of yourself as: straight/heterosexual Sexual Activity: has been sexually active within the last 12 months Assistive Devices: Denture - Upper Allergies Allergies Allergy/AdvReac Type Severity Reaction Status Date / Time vilanterol Allergy Severe Swelling Verified 04/13/23 20:58 [From Breo Ellipta] and GI Upset bacitracin Allergy Intermediate Hives Verified 04/13/23 20:58 [From Neosporin ([id number])] neomycin Allergy Intermediate Hives Verified 04/13/23 20:58 [From Neosporin ([id number])] polymyxin B Allergy Intermediate Hives Verified 04/13/23 20:58 [From Neosporin ([id number])] amoxicillin [From Augmentin] AdvReac Intermediate Caused C. Verified 04/13/23 20:58 diff clavulanic acid AdvReac Intermediate Caused C. Verified 04/13/23 20:58 [From Augmentin] diff levofloxacin AdvReac Intermediate tendinopath Verified 04/13/23 20:58 y olmesartan AdvReac Intermediate Diarrhea Verified 04/13/23 20:58 Home Meds Home Medications Medication Instructions Recorded Confirmed coenzyme Q10 100 mg tablet 100 mg PO QAM 09/06/18 04/13/23 vitamin E 268 mg (400 unit) capsule 400 unit PO QAM 09/06/18 04/13/23 lactobacillus combination no.4 3 3,000 mmu cells PO QAM 02/16/19 04/13/23 billion cell capsule (Probiotic) azelastine 205.5 mcg (0.15 %) 2 spray intranasal BID 04/12/19 04/13/23 nasal spray ascorbate calcium (vitamin C) 500 1,000 mg PO QAM PRN NEEDED PER 08/06/20 04/13/23 mg tablet PT. multivitamin (Daily Multi-Vitamin 1 tab PO QAM 08/06/20 04/13/23 tablet) budesonide-formoterol HFA 80 2 inh inhalation BID 06/24/22 04/13/23 mcg-4.5 mcg/actuation aerosol inhaler (Symbicort) omega-3 fatty acids 1,000 mg 1,000 mg PO QAM 06/24/22 04/13/23 capsule hydrochlorothiazide 25 mg tablet 25 mg PO QAM 12/11/22 04/13/23 bismuth subsalicylate 262 mg 524 mg PO QID PRN UPSET STOMACH 12/29/22 04/13/23 tablet (Pepto-Bismol) levocetirizine 5 mg tablet 5 mg PO QAM 02/13/23 04/13/23 levothyroxine 88 mcg tablet 88 mcg PO QAM 02/13/23 04/13/23 potassium chloride 20 mEq 30 meq PO QAM 02/13/23 04/13/23 tablet,extended release(part/cryst) (Klor-Con M) propranolol 60 mg capsule,24 60 mg PO HS 02/13/23 04/13/23 hr,extended release mupirocin 2 % topical ointment 1 applic topical BID PRN Skin 03/21/23 04/13/23 Irritation celecoxib 100 mg capsule 100 mg PO BID PRN Pain 03/22/23 04/13/23 pantoprazole 40 mg tablet,delayed 40 mg PO BID 04/09/23 04/13/23 release (Protonix) buspirone 5 mg tablet 5 mg PO DIRECTED PRN anxiety 04/13/23 04/13/23 ondansetron HCl 4 mg tablet 4 mg PO TID PRN NAUSEA/VOMITING 04/13/23 04/13/23 Previous Rx's Medication Instructions Recorded inhalational spacing device #1 ea 09/22/18 (Vortex Holding Chamber) albuterol sulfate 90 mcg/actuation 2 puff inhalation Q4H PRN 05/19/22 aerosol inhaler (Ventolin HFA) Shortness Of Breath Or Wheezing #18 grams bupropion HCl 150 mg tablet,12 hr 150 mg PO BID #180 ea 07/11/22 sustained-release fluticasone propionate 50 1 spray intranasal DAILY 30 days 07/22/22 mcg/actuation nasal #48 grams spray,suspension atorvastatin 20 mg tablet 20 mg PO HS #90 tabs 11/13/22 estradiol 0.01% (0.1 mg/gram) 0.25 appful vaginal DAILY #42.5 02/12/23 vaginal cream grams gabapentin 100 mg capsule 100 mg PO TID #270 caps 03/09/23 colestipol 1 gram tablet (Colestid) 1 g PO DAILY@1000 #30 tabs 03/29/23 dicyclomine 10 mg capsule 10 mg PO QID PRN abdominal pain 03/29/23 #60 caps doxycycline hyclate 100 mg capsule 100 mg PO BID #14 caps 04/09/23 oxycodone-acetaminophen 7.5 mg-325 1 tab PO Q8H PRN pain #7 tabs 04/09/23 mg tablet (Percocet) phenazopyridine 200 mg tablet 200 mg PO Q8H PRN pain #10 tabs 04/09/23 (Pyridium) tamsulosin 0.4 mg capsule 0.4 mg PO HS #30 caps 04/09/23 Results & Data (ED) Vital Signs Vital Signs - 24 hr 04/13/23 19:10 04/13/23 21:32 04/13/23 22:30 Temperature 36.5 C Temperature Source Temporal Artery Scan Pulse Rate 96 H 82 73 Pulse Rate [Apical] Pulse Rate from SpO2 Sensor 73 Pulse Rhythm [Apical] Pulse Strength [Apical] Respiratory Rate 18 21 Respiratory Effort / Characteristics Non-Labored Respiratory Depth Normal Respiratory Pattern Blood Pressure 136/64 149/94 H Blood Pressure [Right Arm] Blood Pressure Mean 88 112 Blood Pressure Mean [Right Arm] Blood Pressure Position [Right Arm] Pulse Oximetry 96 98 Oxygen Delivery Method Room Air Room Air Sepsis Recent Fever Within 48 Hours No Sepsis New/Unexplained Change in Mental Status No Sepsis Action Taken by Nursing No Action Required 04/13/23 22:33 04/13/23 23:00 Temperature Temperature Source Pulse Rate 75 Pulse Rate [Apical] 75 Pulse Rate from SpO2 Sensor 74 Pulse Rhythm [Apical] Regular Pulse Strength [Apical] Normal Respiratory Rate 22 16 Respiratory Effort / Characteristics Non-Labored Spontaneous Respiratory Depth Normal Respiratory Pattern Regular Blood Pressure 149/97 H Blood Pressure [Right Arm] 149/97 H Blood Pressure Mean 126 Blood Pressure Mean [Right Arm] 114 Blood Pressure Position [Right Arm] Lying Pulse Oximetry 98 98 Oxygen Delivery Method Room Air Room Air Sepsis Recent Fever Within 48 Hours Sepsis New/Unexplained Change in Mental Status Sepsis Action Taken by Nursing Laboratory Data 04/13/23 19:20 04/13/23 19:20 Lab Results 04/13/23 Range/Units 19:20 WBC 7.12 (4.8-10.8) K/ul RBC 4.81 (4.20-5.40) M/uL Hgb 13.1 (12.0-16.0) g/dl Hct 41.2 (37.0-47.0) % MCV 85.7 (80.0-100.0) fL MCH 27.2 (25.0-34.0) pg MCHC 31.8 L (32.0-36.0) g/dL RDW Std Deviation 41.9 (36.4-46.3) fL RDW Coeff of Sánchez 13.4 (11.5-14.5) % Plt Count 285 (130-400) K/uL MPV 9.0 L (9.4-12.4) fL Immature Gran % (Auto) 1.0 % Neut % (Auto) 68.4 % Lymph % (Auto) 20.1 % [place] % (Auto) 8.3 % Eos % (Auto) 1.5 % Baso % (Auto) 0.7 % Neut # (Auto) 4.87 (1.40-6.50) K/uL Lymph # (Auto) 1.43 (1.20-3.40) K/uL [place] # (Auto) 0.59 (0.11-0.59) K/uL Eos # (Auto) 0.11 (0.00-0.50) K/uL Baso # (Auto) 0.05 (0.00-0.20) K/uL Immature Gran # (Auto) 0.07 (0.01-0.20) K/uL Sodium 138 (136-145) mmol/L Potassium 3.4 L (3.5-5.1) mmol/L Chloride 100 (98-107) mmol/L Carbon Dioxide 28 (21-32) mmol/L Anion Gap 10 (3-11) BUN 12 (6-23) mg/dl Creatinine 0.80 (0.6-1.2) mg/dl Est Cr Clr Drug Dosing Not Reportable Est GFR ( Amer) 90.3 ml/min Est GFR (Non-Af Amer) 77.9 ml/min BUN/Creatinine Ratio 15.0 (10-20) Glucose 105 H (70-99(Fasting)) mg/dl Calcium 9.5 (8.6-10.3) mg/dl Total Bilirubin 0.4 (0.2-1.0) mg/dl AST 17 (13-39) U/L ALT 18 (7-52) U/L Alkaline Phosphatase 59 (34-104) U/L Total Protein 7.4 (6.0-8.3) gm/dl Albumin 3.9 (3.4-5.0) gm/dl Globulin 3.5 (2.5-4.0) gm/dl Albumin/Globulin Ratio 1.1 (0.9-2) Lipase 12 (11-82) U/L Administered Medications Discontinued Medications Sodium Chloride (Nss) 500 mls @ 999 mls/hr IV .Q31M STA Stop: 04/13/23 19:44 Last Infusion: 04/13/23 20:30 Dose: Infused Documented By: Admin: 04/13/23 19:25 Dose: 999 mls/hr Documented By: BRIAN Sodium Chloride (Nss) 1,000 mls @ 999 mls/hr IV .Q1H1M ONE Stop: 04/13/23 22:09 Last Infusion: 04/13/23 22:19 Dose: Infused Documented By: Admin: 04/13/23 21:18 Dose: 999 mls/hr Documented By: MATI Ioversol (Optiray 320 500ml) 90 ml IV ONCE ONE Stop: 04/13/23 22:13 Last Admin: 04/13/23 22:12 Dose: 90 ml Documented By: LOAN Ketorolac Tromethamine (Ketorolac Tromethamine 15 Mg/Ml Vial) 15 mg IV NOW ONE Stop: 04/13/23 21:10 Last Admin: 04/13/23 21:18 Dose: 15 mg Documented By: MATI Morphine Sulfate (Morphine Sulfate 10 Mg/Ml Carp/Vial) 6 mg IV NOW STA Stop: 04/13/23 21:10 Last Admin: 04/13/23 21:19 Dose: 6 mg Documented By: MATI Morphine Sulfate (Morphine Sulfate 4 Mg/Ml 1 Ml Carp\Vial) 4 mg IV NOW STA Stop: 04/13/23 22:53 Last Admin: 04/13/23 23:18 Dose: 4 mg Documented By: EMMANUEL Ondansetron HCl (Ondansetron Inj 2 Mg/Ml 2 Ml Vial) 4 mg IV NOW STA Stop: 04/13/23 19:15 Last Admin: 04/13/23 19:24 Dose: 4 mg Documented By: BRIAN Ondansetron HCl (Ondansetron Inj 2 Mg/Ml 2 Ml Vial) 4 mg IV NOW STA Stop: 04/13/23 21:10 Last Admin: 04/13/23 21:16 Dose: 4 mg Documented By: MATI Imaging Data Radiologist's Impression: Abdomen/Pelvis CT 04/13/23 21:09 Exam(s): CT ABDOMEN + PELVIS With Contrast IV Amt: 90ml EXAM: CT Abdomen and Pelvis With Intravenous Contrast CLINICAL HISTORY: Reason for exam: epigastric abd pain n/v. TECHNIQUE: Axial computed tomography images of the abdomen and pelvis with intravenous contrast. CTDI is 23.04 mGy and DLP is 1101.01 mGy-cm. Automated exposure control was utilized for the study. A dose lowering technique was utilized adhering to the principles of ALARA. CONTRAST: Patient received 90ml of IV contrast COMPARISON: 02/13/23 FINDINGS: Lung bases are clear. Gallbladder surgically absent. There is mild intrahepatic bile duct dilatation. Common bile duct is enlarged measuring 1.5 cm, increased from prior CT. No calcified duct stone is visible. Liver, spleen, pancreas, and adrenal glands are unremarkable. Again seen is a questionable 9 mm right kidney midpole lesion, best visualized on coronal image 47. There is no right-sided hydronephrosis. A left ureteral stent has been placed. There is no left-sided hydronephrosis. Previously seen left kidney lower pole stone is no longer present. There is atherosclerosis without aortic aneurysm. There is no adenopathy, free fluid, or free air. Uterus is surgically absent. Urinary bladder is unremarkable. There is no mechanical bowel obstruction. Appendix is not visualized. There are no bowel inflammatory changes. There is distal colonic diverticulosis. Skeleton appears intact. IMPRESSION: 1. Cholecystectomy. 2. There is increasing biliary dilatation when compared to prior CT, with common bile duct at 1.5 cm. No calcified duct stone is visible. If there is laboratory evidence of biliary obstruction, consider MRCP. 3. Interval placement of left ureteral stent. Previously seen left kidney lower pole stone is no longer visible. No hydronephrosis of either kidney. 4. Again seen is a possible 9 mm indeterminate right renal midpole lesion. If not previously performed, further evaluation with renal protocol MRI may be obtained. Electronically signed by: Lorin Rodriguez M.D. 04/14/23 00:00 AM Discharge Plan Visit Data Chief Complaint: Abdominal Pain Stated Complaint: ABDOMINAL PAIN, NAUSEA - STENT FROM KIDNEY STONE ED Provider: David Evans Discharge Problem: Abdominal pain, Post-op pain Patient Disposition: Admitted As Inpatient Discharge Instructions Interventions: ED Discharge Assessment Last Done: 04/13/23 22:36 Forms Stand Alone Forms: My [facility] [place] [employer] Prescriptions Prescriptions: No Action albuterol sulfate [Ventolin HFA] 90 mcg/actuation HFA aerosol inhaler 2 puff inhalation Q4H PRN (Reason: Shortness Of Breath Or Wheezing) Qty: 18 5RF bupropion HCl 150 mg tablet sustained-release 12 hr 150 mg PO BID Qty: 180 3RF fluticasone propionate 50 mcg/actuation spray,suspension 1 spray intranasal DAILY 30 Days Qty: 48 3RF Rx Instructions: 1 SPRAY IN EACH NOSTRIL DAILY atorvastatin 20 mg tablet 20 mg PO HS Qty: 90 3RF estradiol 0.01 % (0.1 mg/gram) cream 0.25 appful vaginal DAILY Qty: 42.5 2RF Rx Instructions: Use daily for 14 days; use three times a week for 14 days; use 2-3 times a week after gabapentin 100 mg capsule 100 mg PO TID Qty: 270 3RF hydrochlorothiazide 25 mg tablet 25 mg PO QAM (DME) Vortex Holding Chamber spacer See Dose Instructions .ROUTE .MEDSUPPLY Qty: 1 0RF Dose Instruction: As directed Rx Instructions: As directed ascorbate calcium (vitamin C) 500 mg tablet 1,000 mg PO QAM PRN (Reason: NEEDED PER PT.) multivitamin [Daily Multi-Vitamin] Tablet 1 tab PO QAM vitamin E 400 unit Capsule 400 unit PO QAM coenzyme Q10 100 mg Tablet 100 mg PO QAM Probiotic 3 billion cell capsule 3,000 mmu cells PO QAM Rx Instructions: with meals azelastine 0.15 % (205.5 mcg) spray,non-aerosol 2 spray INTNAS BID Rx Instructions: administer into each nostril propranolol 60 mg capsule,extended release 24 hr 60 mg PO HS potassium chloride [Klor-Con M20] 20 mEq tablet,ER particles/crystals 30 meq PO QAM levothyroxine 88 mcg tablet 88 mcg PO QAM levocetirizine 5 mg tablet 5 mg PO QAM Rx Instructions: TAKE 1 TABLET BY MOUTH EVERY DAY FOR ALLERGY SYMPTOMS celecoxib 100 mg capsule 100 mg PO BID PRN (Reason: Pain) colestipol [Colestid] 1 gram Tablet 1 g PO DAILY@1000 Qty: 30 0RF dicyclomine 10 mg Capsule 10 mg PO QID PRN (Reason: abdominal pain) Qty: 60 0RF ondansetron HCl 4 mg tablet 4 mg PO TID PRN (Reason: NAUSEA/VOMITING) buspirone 5 mg tablet 5 mg PO DIRECTED PRN (Reason: anxiety) omega-3 fatty acids 1,000 mg Capsule 1,000 mg PO QAM budesonide-formoterol [Symbicort] 80-4.5 mcg/actuation HFA aerosol inhaler 2 inh inhalation BID Hold Instructions: Gastritis Rx Instructions: INHALE 2 PUFFS INTO THE LUNGS TWICE A DAY Pepto-Bismol 262 mg Tablet 524 mg PO QID PRN (Reason: UPSET STOMACH) mupirocin 2 % ointment 1 applic TOPICAL BID PRN (Reason: Skin Irritation) pantoprazole [Protonix] 40 mg tablet,delayed release (DR/EC) 40 mg PO BID phenazopyridine [Pyridium] 200 mg tablet 200 mg PO Q8H PRN (Reason: pain) Qty: 10 0RF tamsulosin 0.4 mg capsule 0.4 mg PO HS Qty: 30 0RF oxycodone-acetaminophen [Percocet] 7.5-325 mg tablet 1 tab PO Q8H PRN (Reason: pain) Qty: 7 0RF doxycycline hyclate 100 mg capsule 100 mg PO BID Qty: 14 0RF Rx Instructions: STARTED 04/09/23 FOR 7 DAYS Referrals Referrals: Hansel Harris DO [Primary Care Provider] - Discharge Problem: Abdominal pain Qualifiers: Abdominal location: unspecified location Qualified Code(s): R10.9 - Unspecified abdominal pain
[2023-04-13] MEDS ORDERED: KETOROLAC TROMETHAMINE 15 MG/ML VIAL IV ONE (21:09)
[2023-04-13] MEDS ORDERED: SODIUM CHLORIDE 0.9% 1,000 ML IV ONE (21:09)
[2023-04-13] MEDS ORDERED: MoRPHine SULFATE 10 MG/ML CARP/VIAL IV STA (21:09)
[2023-04-13] MEDS ORDERED: OPTIRAY 320 500ml IV ONE (22:12)
[2023-04-13] MEDS ORDERED: MoRPHine SULFATE 4 MG/ML 1 ML CARP\\VIAL IV STA (22:52)
--- NOTE | 2023-04-14 00:01 | CT Scan Report ---
Exam(s): CT ABDOMEN + PELVIS With Contrast IV Amt: 90ml EXAM: CT Abdomen and Pelvis With Intravenous Contrast CLINICAL HISTORY: Reason for exam: epigastric abd pain n/v. TECHNIQUE: Axial computed tomography images of the abdomen and pelvis with intravenous contrast. CTDI is 23.04 mGy and DLP is 1101.01 mGy-cm. Automated exposure control was utilized for the study. A dose lowering technique was utilized adhering to the principles of ALARA. CONTRAST: Patient received 90ml of IV contrast COMPARISON: 02/13/23 FINDINGS: Lung bases are clear. Gallbladder surgically absent. There is mild intrahepatic bile duct dilatation. Common bile duct is enlarged measuring 1.5 cm, increased from prior CT. No calcified duct stone is visible. Liver, spleen, pancreas, and adrenal glands are unremarkable. Again seen is a questionable 9 mm right kidney midpole lesion, best visualized on coronal image 47. There is no right-sided hydronephrosis. A left ureteral stent has been placed. There is no left-sided hydronephrosis. Previously seen left kidney lower pole stone is no longer present. There is atherosclerosis without aortic aneurysm. There is no adenopathy, free fluid, or free air. Uterus is surgically absent. Urinary bladder is unremarkable. There is no mechanical bowel obstruction. Appendix is not visualized. There are no bowel inflammatory changes. There is distal colonic diverticulosis. Skeleton appears intact. IMPRESSION: 1. Cholecystectomy. 2. There is increasing biliary dilatation when compared to prior CT, with common bile duct at 1.5 cm. No calcified duct stone is visible. If there is laboratory evidence of biliary obstruction, consider MRCP. 3. Interval placement of left ureteral stent. Previously seen left kidney lower pole stone is no longer visible. No hydronephrosis of either kidney. 4. Again seen is a possible 9 mm indeterminate right renal midpole lesion. If not previously performed, further evaluation with renal protocol MRI may be obtained. Electronically signed by: Lorin Rodriguez M.D. 04/14/23 00:00 AM
--- NOTE | 2023-04-14 00:40 | History & Physical Report ---
Date of Service April 14, 2023 Assessment & Plan (1) Post-op pain: Plan: 62 yo female with PMHx of COPD, HLD, depression, anxiety, fibromyalgia, HTN, hypothyroidism, and GERD presents with abdominal pain. #Abdominal Pain -2 days post op from L ureteral stent placement presenting with diffuse abdominal pain and nausea. Labs reassuring, no leukocytosis, Hgb wnl. UA with +LE and +WBC but without bacteria. -CT A/P: No hydronephrosis of either kidney. Cholecystectomy. There is mild biliary dilation, however, LFTs normal. Not noted in read but appears there is moderate gas/stool present in the bowel without obvious obstruction. -on prophylactic doxycycline since procedure and given rocephin x1 in the ED. Will defer further abx to urology. -IVF, pain control, anti-emetics, protonix -urology consulted DVT ppx: SCDs, ambulation; avoid chemical in case of procedure FEN/GI: strict NPO Code Status: full Dispo: med surg (2) Abdominal pain: (3) COPD (chronic obstructive pulmonary disease): (4) Hyperlipidemia: (5) Hypothyroidism: (6) Hypertension: (7) Fibromyalgia: (8) Depression with anxiety: History of Present Illness Chief Complaint: abdominal pain Primary Care Provider: Hansel Harris, 62 yo female with PMHx of COPD, HLD, depression, anxiety, fibromyalgia, HTN, hypothyroidism, and GERD presents with abdominal pain. Patient is 2 days postop left ureteral stent placement for kidney stone. About 24 hours following surgery she started experiencing diffuse abdominal pain with associated nausea. She also has had a mild cough but believes this is due to sinus drainage. Otherwise denies fever, chills, fatigue, headache, chest pain, shortness of breath, vomiting, hematuria, dysuria. She has had a bowel movement since surgery. She has also been able to tolerate food at home. She is currently on doxycycline postop but has tolerated this medication in the past. She does r eport feeling a little bit better after medications recieved in the ED. Allergies Allergy/AdvReac Type Severity Reaction Status Date / Time vilanterol Allergy Severe Swelling Verified 04/13/23 20:58 [From Breo Ellipta] and GI Upset bacitracin Allergy Intermediate Hives Verified 04/13/23 20:58 [From Neosporin ([id number])] neomycin Allergy Intermediate Hives Verified 04/13/23 20:58 [From Neosporin ([id number])] polymyxin B Allergy Intermediate Hives Verified 04/13/23 20:58 [From Neosporin ([id number])] amoxicillin [From Augmentin] AdvReac Intermediate Caused C. Verified 04/13/23 20:58 diff clavulanic acid AdvReac Intermediate Caused C. Verified 04/13/23 20:58 [From Augmentin] diff levofloxacin AdvReac Intermediate tendinopath Verified 04/13/23 20:58 y olmesartan AdvReac Intermediate Diarrhea Verified 04/13/23 20:58 Home Medications Medication Instructions Recorded Confirmed Type coenzyme Q10 100 mg tablet 100 mg PO QAM 09/06/18 04/13/23 History vitamin E 268 mg (400 unit) capsule 400 unit PO QAM 09/06/18 04/13/23 History inhalational spacing device #1 ea 09/22/18 04/02/23 Rx (Vortex Holding Chamber) lactobacillus combination no.4 3 3,000 mmu cells PO QAM 02/16/19 04/13/23 History billion cell capsule (Probiotic) azelastine 205.5 mcg (0.15 %) 2 spray intranasal BID 04/12/19 04/13/23 History nasal spray ascorbate calcium (vitamin C) 500 1,000 mg PO QAM PRN NEEDED PER 08/06/20 04/13/23 History mg tablet PT. multivitamin (Daily Multi-Vitamin 1 tab PO QAM 08/06/20 04/13/23 History tablet) albuterol sulfate 90 mcg/actuation 2 puff inhalation Q4H PRN 05/19/22 04/13/23 Rx aerosol inhaler (Ventolin HFA) Shortness Of Breath Or Wheezing #18 grams budesonide-formoterol HFA 80 2 inh inhalation BID 06/24/22 04/13/23 History mcg-4.5 mcg/actuation aerosol inhaler (Symbicort) omega-3 fatty acids 1,000 mg 1,000 mg PO QAM 06/24/22 04/13/23 History capsule bupropion HCl 150 mg tablet,12 hr 150 mg PO BID #180 ea 07/11/22 04/13/23 Rx sustained-release fluticasone propionate 50 1 spray intranasal DAILY 30 days 07/22/22 04/13/23 Rx mcg/actuation nasal #48 grams spray,suspension atorvastatin 20 mg tablet 20 mg PO HS #90 tabs 11/13/22 04/13/23 Rx hydrochlorothiazide 25 mg tablet 25 mg PO QAM 12/11/22 04/13/23 History bismuth subsalicylate 262 mg 524 mg PO QID PRN UPSET STOMACH 12/29/22 04/13/23 History tablet (Pepto-Bismol) estradiol 0.01% (0.1 mg/gram) 0.25 appful vaginal DAILY #42.5 02/12/23 04/13/23 Rx vaginal cream grams levocetirizine 5 mg tablet 5 mg PO QAM 02/13/23 04/13/23 History levothyroxine 88 mcg tablet 88 mcg PO QAM 02/13/23 04/13/23 History potassium chloride 20 mEq 30 meq PO QAM 02/13/23 04/13/23 History tablet,extended release(part/cryst) (Klor-Con M) propranolol 60 mg capsule,24 60 mg PO HS 02/13/23 04/13/23 History hr,extended release gabapentin 100 mg capsule 100 mg PO TID #270 caps 03/09/23 04/13/23 Rx mupirocin 2 % topical ointment 1 applic topical BID PRN Skin 03/21/23 04/13/23 History Irritation celecoxib 100 mg capsule 100 mg PO BID PRN Pain 03/22/23 04/13/23 History colestipol 1 gram tablet (Colestid) 1 g PO DAILY@1000 #30 tabs 03/29/23 04/13/23 Rx dicyclomine 10 mg capsule 10 mg PO QID PRN abdominal pain 03/29/23 04/13/23 Rx #60 caps doxycycline hyclate 100 mg capsule 100 mg PO BID #14 caps 04/09/23 04/13/23 Rx oxycodone-acetaminophen 7.5 mg-325 1 tab PO Q8H PRN pain #7 tabs 04/09/23 04/13/23 Rx mg tablet (Percocet) pantoprazole 40 mg tablet,delayed 40 mg PO BID 04/09/23 04/13/23 History release (Protonix) phenazopyridine 200 mg tablet 200 mg PO Q8H PRN pain #10 tabs 04/09/23 04/13/23 Rx (Pyridium) tamsulosin 0.4 mg capsule 0.4 mg PO HS #30 caps 04/09/23 04/13/23 Rx buspirone 5 mg tablet 5 mg PO DIRECTED PRN anxiety 04/13/23 04/13/23 History ondansetron HCl 4 mg tablet 4 mg PO TID PRN NAUSEA/VOMITING 04/13/23 04/13/23 History Past Med/Surg History Medical History Encounter for pre-operative examination COVID-19 Diarrhea Hyperglycemia Malaise and fatigue Acute diverticulitis Renal mass [place] [facility] aware, monitoring Paresthesia of upper extremity Osteoarthritis Kidney stones current History of Helicobacter pylori infection Hx of Clostridium difficile infection Remote hx approximately 30 years ago Hx of diverticulitis of colon History of COVID-19 03/19/2023 ([place], [place]) > resolved 11/2021- fatigue, congestion, cough, sore throat > resolved Hx of melanoma of skin Pulmonary embolism Remote hx approximately 30 years ago, after SUMAN (blood thinners x 3 months) Sciatica COPD (chronic obstructive pulmonary disease) Mild reactive airways disease Allergic rhinitis Depression with anxiety Esophageal reflux Fibromyalgia Hypertension Irritable bowel syndrome Hypothyroidism Hyperlipidemia History of asthma Surgical History Hx of vascular surgery Dr Morales [facility] 07/2022 Distal LT GSV accessed under ultrasound guidance with placement of 4Fr sheath History of esophagogastroduodenoscopy (EGD) Hx of cataract extraction Hx of melanoma excision stomach S/P dilation and curettage History of cryosurgery S/P laparoscopic procedure History of colonoscopy (10/12/19) 4 polyps removed, [facility], Dr. Roque S/P tonsillectomy S/P sinus surgery S/P SUMAN-BSO S/P laparoscopic cholecystectomy S/P appendectomy Family History Mother Diabetes Father Heart disease Other Asthma Cancer Gallbladder disease Hypertension Stroke Denies family history of Ovarian cancer Myocardial infarction Breast cancer Colorectal cancer Colonic polyp Uterine cancer Social History Smoking Status: Never smoker Tobacco Type: Cigarettes Age Started Using Tobacco: 18; Age Quit Using Tobacco: 58; Second Hand Exposure: No; Do You Dip or Chew Tobacco: No; Hx Alcohol Use: No Hx Substance Use: No Preferred Language: Argentine Communication Ability: Effective Visual Impairment: No Limitations Hearing Ability: Normal Dry Cleaner Helper Required: No Beliefs That Will Affect Care: None marital status: Current Living Situation: Spouse current occupational status: disabled Feels Safe at Home: Yes Childhood Exposure to Second-Hand Smoke: Yes Dental Care, Regularly: Yes Seatbelt Use: always Sunscreen Use: Yes Do you think of yourself as: straight/heterosexual Sexual Activity: has been sexually active within the last 12 months Assistive Devices: Denture - Upper Review of Systems Review of Systems: All systems reviewed & are unremarkable except as noted in HPI & below Physical Exam Physical Exam: Constitutional: in no acute distress, pleasant and normal affect, intact memory. AOx.3 Vitals as above. HEENT: No scleral injection or discharge. Moist mucous membranes. Neck: Supple without lymphadenopathy. Trachea midline. Lungs: Clear to auscultation bilaterally with good effort. No wheezes/rales/rhonchi. Cardiac: Regular rate and rhythm. No murmurs. No lower extremity edema. 2+ distal peripheral pulses. Abdomen: Bowel sounds present. Soft and nondistended. Diffuse tenderness to palpation.No guarding. No hepatosplenomegaly. MSK: No cyanosis or clubbing. Extremities motor strength 5/5. Skin: No rashes, warm, dry. Neurologic: no focal deficits Results & Data Results & Data Vital Signs (Past 12 Hours) Vital Signs Temp Pulse Pulse Resp BP BP Pulse Ox 04/13/23 23:00 75 16 149/97 H 98 04/13/23 22:33 75 22 149/97 H 98 04/13/23 22:30 73 21 149/94 H 98 04/13/23 21:32 82 04/13/23 19:10 36.5 C 96 H 18 136/64 96 O2 Del Method 04/13/23 23:00 Room Air 04/13/23 22:33 Room Air 04/13/23 22:30 Room Air 04/13/23 21:32 04/13/23 19:10 Room Air Laboratory Results Laboratory Results WBC 7.12 K/ul (4.8-10.8) 04/13/23 19:20 RBC 4.81 M/uL (4.20-5.40) 04/13/23 19:20 Hgb 13.1 g/dl (12.0-16.0) 04/13/23 19:20 Hct 41.2 % (37.0-47.0) 04/13/23 19:20 MCV 85.7 fL (80.0-100.0) 04/13/23 19:20 MCH 27.2 pg (25.0-34.0) 04/13/23 19:20 MCHC 31.8 g/dL (32.0-36.0) L 04/13/23 19:20 RDW Std Deviation 41.9 fL (36.4-46.3) 04/13/23 19:20 RDW Coeff of Sánchez 13.4 % (11.5-14.5) 04/13/23 19:20 Plt Count 285 K/uL (130-400) 04/13/23 19:20 MPV 9.0 fL (9.4-12.4) L 04/13/23 19:20 Immature Gran % (Auto) 1.0 % 04/13/23 19:20 Neut % (Auto) 68.4 % 04/13/23 19:20 Lymph % (Auto) 20.1 % 04/13/23 19:20 [place] % (Auto) 8.3 % 04/13/23 19:20 Eos % (Auto) 1.5 % 04/13/23 19:20 Baso % (Auto) 0.7 % 04/13/23 19:20 Neut # (Auto) 4.87 K/uL (1.40-6.50) 04/13/23 19:20 Lymph # (Auto) 1.43 K/uL (1.20-3.40) 04/13/23 19:20 [place] # (Auto) 0.59 K/uL (0.11-0.59) 04/13/23 19:20 Eos # (Auto) 0.11 K/uL (0.00-0.50) 04/13/23 19:20 Baso # (Auto) 0.05 K/uL (0.00-0.20) 04/13/23 19:20 Immature Gran # (Auto) 0.07 K/uL (0.01-0.20) 04/13/23 19:20 Sodium 138 mmol/L (136-145) 04/13/23 19:20 Potassium 3.4 mmol/L (3.5-5.1) L 04/13/23 19:20 Chloride 100 mmol/L (98-107) 04/13/23 19:20 Carbon Dioxide 28 mmol/L (21-32) 04/13/23 19:20 Anion Gap 10 (3-11) 04/13/23 19:20 BUN 12 mg/dl (6-23) 04/13/23 19:20 Creatinine 0.80 mg/dl (0.6-1.2) 04/13/23 19:20 Est Cr Clr Drug Dosing Not Reportable 04/13/23 19:20 Est GFR ( Amer) 90.3 ml/min 04/13/23 19:20 Est GFR (Non-Af Amer) 77.9 ml/min 04/13/23 19:20 BUN/Creatinine Ratio 15.0 (10-20) 04/13/23 19:20 Glucose 105 mg/dl (70-99(Fasting)) H 04/13/23 19:20 Calcium 9.5 mg/dl (8.6-10.3) 04/13/23 19:20 Total Bilirubin 0.4 mg/dl (0.2-1.0) 04/13/23 19:20 AST 17 U/L (13-39) 04/13/23 19:20 ALT 18 U/L (7-52) 04/13/23 19:20 Alkaline Phosphatase 59 U/L (34-104) 04/13/23 19:20 Total Protein 7.4 gm/dl (6.0-8.3) 04/13/23 19:20 Albumin 3.9 gm/dl (3.4-5.0) 04/13/23 19:20 Globulin 3.5 gm/dl (2.5-4.0) 04/13/23 19:20 Albumin/Globulin Ratio 1.1 (0.9-2) 04/13/23 19:20 Lipase 12 U/L (11-82) 04/13/23 19:20 Impressions Abdomen/Pelvis CT 04/13/23 21:09 Exam(s): CT ABDOMEN + PELVIS With Contrast IV Amt: 90ml EXAM: CT Abdomen and Pelvis With Intravenous Contrast CLINICAL HISTORY: Reason for exam: epigastric abd pain n/v. TECHNIQUE: Axial computed tomography images of the abdomen and pelvis with intravenous contrast. CTDI is 23.04 mGy and DLP is 1101.01 mGy-cm. Automated exposure control was utilized for the study. A dose lowering technique was utilized adhering to the principles of ALARA. CONTRAST: Patient received 90ml of IV contrast COMPARISON: 02/13/23 FINDINGS: Lung bases are clear. Gallbladder surgically absent. There is mild intrahepatic bile duct dilatation. Common bile duct is enlarged measuring 1.5 cm, increased from prior CT. No calcified duct stone is visible. Liver, spleen, pancreas, and adrenal glands are unremarkable. Again seen is a questionable 9 mm right kidney midpole lesion, best visualized on coronal image 47. There is no right-sided hydronephrosis. A left ureteral stent has been placed. There is no left-sided hydronephrosis. Previously seen left kidney lower pole stone is no longer present. There is atherosclerosis without aortic aneurysm. There is no adenopathy, free fluid, or free air. Uterus is surgically absent. Urinary bladder is unremarkable. There is no mechanical bowel obstruction. Appendix is not visualized. There are no bowel inflammatory changes. There is distal colonic diverticulosis. Skeleton appears intact. IMPRESSION: 1. Cholecystectomy. 2. There is increasing biliary dilatation when compared to prior CT, with common bile duct at 1.5 cm. No calcified duct stone is visible. If there is laboratory evidence of biliary obstruction, consider MRCP. 3. Interval placement of left ureteral stent. Previously seen left kidney lower pole stone is no longer visible. No hydronephrosis of either kidney. 4. Again seen is a possible 9 mm indeterminate right renal midpole lesion. If not previously performed, further evaluation with renal protocol MRI may be obtained. Electronically signed by: Lorin Rodriguez M.D. 04/14/23 00:00 AM Supervising Physician Co-Signing Physician Notes Attending addendum: I have physically seen this patient, have supervised the medical residents activities, and agree with the H&P unless as otherwise noted. Assessment and Plan: Abdominal pain/nausea/without vomiting- Status post left ureteral stent placement on 04/09 Patient feels that her symptoms developed shortly after that Denies any issues with urination directly CT scan of abdomen pelvis notes stent to be in place Hold postprocedure doxycycline Give ceftriaxone 1 g IV now Zofran 4 mg IV every 6 hours as needed Pantoprazole 40 mg IV daily Pain control as noted Continue IV fluids Common bile duct dilation- LFTs are normal No suggestion of associated illness Can be followed serially with imaging and labs Resident Activity Tracking Resident Involvement: Resident Care Provided Care Provided: Adult Hospital Medicine (2) Abdominal pain Abdominal location: unspecified location Qualified Code(s): R10.9 - Unspecified abdominal pain
[2023-04-14 00:57] LABS: Appearance Urine Clear (Clear); Bacteria Urine Automated Negative (Negative); Bilirubin Urine Negative (Negative); Blood Urine 2+ (Negative); Cast Urine Automated 0 /lpf (0-5); Color Urine Dark Yellow; Epithelial Cell Urine Auto 0-5 /lpf (0-5); Glucose Urine UA Negative (Negative); Ketones Urine Negative (Negative); Leukocyte Esterase Urine 1+ (Negative); Nitrite Urine Positive (Negative); Protein Urine Negative (Negative); RBC Urine Automated >30 /hpf (0-4); Urobilinogen Urine Negative (Negative); pH Urine 7.5 (4.5-7.5)
[2023-04-14] MEDS ORDERED: cefTRIAXone SODIUM 2,000 MG/50 ML BAG IV STA (01:38)
[2023-04-14] MEDS ORDERED: ONDANSETRON INJ 2 MG/ML 2 ML VIAL IV STA (01:41)
[2023-04-14] MEDS ORDERED: POTASSIUM CHLORIDE / WTR 10 MEQ/100 ML PLCT IV ONE (01:41)
[2023-04-14] MEDS ORDERED: SIMETHICONE 80 MG CHEW PO ONE (01:42)
--- NOTE | 2023-04-14 01:54 | Urology Consultation ---
Date of Consultation April 14, 2023 Assessment & Plan (1) Abdominal pain: I discussed with the hospitalist who is admitting the patient. From a urologic perspective we recommend the following: The patient CT scan does not reveal any obvious findings to her abdominal pain other than the left ureteral stent that is in place which may be contributing to her pain Would recommend providing analgesics Provide antiemetics Antibiotics to be continued. Rocephin has been ordered Would recommend keeping the patient n.p.o. for the present time. Currently the patient is normotensive without tachycardia or fever. She does also not exhibit leukocytosis or acute kidney injury. Therefore, do not feel she requires any urgent urologic procedure. We will keep her n.p.o. however and she will be reevaluated in the morning. A determination will be made if her stent will need to be removed. If it is determined her stent should stay in place and no procedures are planned we will advance her diet Additional recommendations to be forthcoming based on her clinical course as an History of Present Illness Reason for Consultation: Abdominal pain with recent left-sided urologic stent placement History of Present Illness This is a 62-year-old female who underwent a cystoscopy with laser lithotripsy, urethral dilatation, and left ureteral stent placement by Dr. Park on 04/09/2023. Patient was discharged the day of this procedure. She notes that she was discharged home on antibiotics in form of doxycycline. She was also given Pyridium as well as Percocet. The patient has a since her ureteral stent was placed she has had some constant discomfort but she notes over the past 24 hours she has had some worsening abdominal discomfort that was unbearable. She denies any radiation of the pain. She does note that is located throughout her abdomen and somewhat confined to her left flank. She has had associated nausea and vomiting. She denies any fevers, shakes, or chills. She also denies any dysuria. She cannot tell she had an hematuria because the Pyridium has made her urine discolored. Because of her ongoing symptomatology she did present to the emergency department. Since arrival to the hospital the patient has had labs and imaging which) reviewed. CBC reveals white blood cell count, hemoglobin, hematocrit, and platelet count were all normal. Chemistry profile shows sodium is 138 with a potassium of 3.4. Her BUN and creatinine are both normal. There is no elevation of LFTs or lipase. Patient did have a urinalysis that showed 2+ blood and was positive for nitrites. There is 1+ leukocyte Estrace and 5-10 white blood cells per high-power field. There is no bacteria on the study. A KUB was performed that showed patient had a left ureteral stent which appeared to be in good position. A CT scan of the abdomen pelvis was performed. This showed that patient had a left ureteral stent in place, which appeared to be in good position. There is no hydronephrosis of either kidney noted. No kidney stones were noted. At the time of my interview she was resting comfortably in bed and she was in no distress Allergies Allergy/AdvReac Type Severity Reaction Status Date / Time vilanterol Allergy Severe Swelling Verified 04/13/23 20:58 [From Breo Ellipta] and GI Upset bacitracin Allergy Intermediate Hives Verified 04/13/23 20:58 [From Neosporin ([id number])] neomycin Allergy Intermediate Hives Verified 04/13/23 20:58 [From Neosporin ([id number])] polymyxin B Allergy Intermediate Hives Verified 04/13/23 20:58 [From Neosporin ([id number])] amoxicillin [From Augmentin] AdvReac Intermediate Caused C. Verified 04/13/23 20:58 diff clavulanic acid AdvReac Intermediate Caused C. Verified 04/13/23 20:58 [From Augmentin] diff levofloxacin AdvReac Intermediate tendinopath Verified 04/13/23 20:58 y olmesartan AdvReac Intermediate Diarrhea Verified 04/13/23 20:58 Home Medications Medication Instructions Recorded Confirmed Type coenzyme Q10 100 mg tablet 100 mg PO QAM 09/06/18 04/13/23 History vitamin E 268 mg (400 unit) capsule 400 unit PO QAM 09/06/18 04/13/23 History inhalational spacing device #1 ea 09/22/18 04/02/23 Rx (Vortex [employer] Chamber) lactobacillus combination no.4 3 3,000 mmu cells PO QAM 02/16/19 04/13/23 History billion cell capsule (Probiotic) azelastine 205.5 mcg (0.15 %) 2 spray intranasal BID 04/12/19 04/13/23 History nasal spray ascorbate calcium (vitamin C) 500 1,000 mg PO QAM PRN NEEDED PER 08/06/20 04/13/23 History mg tablet PT. multivitamin (Daily Multi-Vitamin 1 tab PO QAM 08/06/20 04/13/23 History tablet) albuterol sulfate 90 mcg/actuation 2 puff inhalation Q4H PRN 05/19/22 04/13/23 Rx aerosol inhaler (Ventolin HFA) Shortness Of Breath Or Wheezing #18 grams budesonide-formoterol HFA 80 2 inh inhalation BID 06/24/22 04/13/23 History mcg-4.5 mcg/actuation aerosol inhaler (Symbicort) omega-3 fatty acids 1,000 mg 1,000 mg PO QAM 06/24/22 04/13/23 History capsule bupropion HCl 150 mg tablet,12 hr 150 mg PO BID #180 ea 07/11/22 04/13/23 Rx sustained-release fluticasone propionate 50 1 spray intranasal DAILY 30 days 07/22/22 04/13/23 Rx mcg/actuation nasal #48 grams spray,suspension atorvastatin 20 mg tablet 20 mg PO HS #90 tabs 11/13/22 04/13/23 Rx hydrochlorothiazide 25 mg tablet 25 mg PO QAM 12/11/22 04/13/23 History bismuth subsalicylate 262 mg 524 mg PO QID PRN UPSET STOMACH 12/29/22 04/13/23 History tablet (Pepto-Bismol) estradiol 0.01% (0.1 mg/gram) 0.25 appful vaginal DAILY #42.5 02/12/23 04/13/23 Rx vaginal cream grams levocetirizine 5 mg tablet 5 mg PO QAM 02/13/23 04/13/23 History levothyroxine 88 mcg tablet 88 mcg PO QAM 02/13/23 04/13/23 History potassium chloride 20 mEq 30 meq PO QAM 02/13/23 04/13/23 History tablet,extended release(part/cryst) (Klor-Con M) propranolol 60 mg capsule,24 60 mg PO HS 02/13/23 04/13/23 History hr,extended release gabapentin 100 mg capsule 100 mg PO TID #270 caps 03/09/23 04/13/23 Rx mupirocin 2 % topical ointment 1 applic topical BID PRN Skin 03/21/23 04/13/23 History Irritation celecoxib 100 mg capsule 100 mg PO BID PRN Pain 03/22/23 04/13/23 History colestipol 1 gram tablet (Colestid) 1 g PO DAILY@1000 #30 tabs 03/29/23 04/13/23 Rx dicyclomine 10 mg capsule 10 mg PO QID PRN abdominal pain 03/29/23 04/13/23 Rx #60 caps doxycycline hyclate 100 mg capsule 100 mg PO BID #14 caps 04/09/23 04/13/23 Rx oxycodone-acetaminophen 7.5 mg-325 1 tab PO Q8H PRN pain #7 tabs 04/09/23 04/13/23 Rx mg tablet (Percocet) pantoprazole 40 mg tablet,delayed 40 mg PO BID 04/09/23 04/13/23 History release (Protonix) phenazopyridine 200 mg tablet 200 mg PO Q8H PRN pain #10 tabs 04/09/23 04/13/23 Rx (Pyridium) tamsulosin 0.4 mg capsule 0.4 mg PO HS #30 caps 04/09/23 04/13/23 Rx buspirone 5 mg tablet 5 mg PO DIRECTED PRN anxiety 04/13/23 04/13/23 History ondansetron HCl 4 mg tablet 4 mg PO TID PRN NAUSEA/VOMITING 04/13/23 04/13/23 History Patient History Medical History Encounter for pre-operative examination COVID-19 Diarrhea Hyperglycemia Malaise and fatigue Acute diverticulitis Renal mass [place] [facility] aware, monitoring Paresthesia of upper extremity Osteoarthritis Kidney stones current History of Helicobacter pylori infection Hx of Clostridium difficile infection Remote hx approximately 30 years ago Hx of diverticulitis of colon History of COVID-19 03/19/2023 ([place], [place]) > resolved 11/2021- fatigue, congestion, cough, sore throat > resolved Hx of melanoma of skin Pulmonary embolism Remote hx approximately 30 years ago, after SUMAN (blood thinners x 3 months) Sciatica COPD (chronic obstructive pulmonary disease) Mild reactive airways disease Allergic rhinitis Depression with anxiety Esophageal reflux Fibromyalgia Hypertension Irritable bowel syndrome Hypothyroidism Hyperlipidemia History of asthma Surgical History Hx of vascular surgery Dr Morales [facility] 07/2022 Distal LT GSV accessed under ultrasound guidance with placement of 4Fr sheath History of esophagogastroduodenoscopy (EGD) Hx of cataract extraction Hx of melanoma excision stomach S/P dilation and curettage History of cryosurgery S/P laparoscopic procedure History of colonoscopy (10/12/19) 4 polyps removed, [facility], Dr. Roque S/P tonsillectomy S/P sinus surgery S/P SUMAN-BSO S/P laparoscopic cholecystectomy S/P appendectomy Family History Mother Diabetes Father Heart disease Other Asthma Cancer Gallbladder disease Hypertension Stroke Denies family history of Ovarian cancer Myocardial infarction Breast cancer Colorectal cancer Colonic polyp Uterine cancer Social History Smoking Status: Never smoker Tobacco Type: Cigarettes Age Started Using Tobacco: 18; Age Quit Using Tobacco: 58; Second Hand Exposure: No; Do You Dip or Chew Tobacco: No; Hx Alcohol Use: No Hx Substance Use: No Preferred Language: Azerbaijani Communication Ability: Effective Visual Impairment: No Limitations Hearing Ability: Normal Content Engineer Required: No Beliefs That Will Affect Care: None marital status: Current Living Situation: Spouse current occupational status: disabled Feels Safe at Home: Yes Childhood Exposure to Second-Hand Smoke: Yes Dental Care, Regularly: Yes Seatbelt Use: always Sunscreen Use: Yes Do you think of yourself as: straight/heterosexual Sexual Activity: has been sexually active within the last 12 months Assistive Devices: Denture - Upper Review of Systems Constitutional: no fever and no chills Ear, Nose, Mouth, Throat: no hearing loss Respiratory: no cough and no dyspnea Cardiovascular: no chest pain Gastrointestinal: as per Subjective / HPI Genitourinary: as per Subjective / HPI Musculoskeletal: + back pain (Left flank) Integumentary: no rash Neurologic: no localized weakness Physical Exam Constitutional: WD/WN, vitals as above Eyes: no conjunctival abnormality ENMT: Ears: no external ear abnormality Neck: trachea midline Respiratory: normal respiratory effort; no respiratory distress and no labored breathing Cardiovascular: Rate/Rhythm: regular rate and regular rhythm Gastrointestinal (Abdomen): Abdomen is soft and nonrigid. It is nondistended. There is no rebound tenderness or guarding but patient did have some generalized pain with palpation throughout her abdomen Musculoskeletal: No calf tender Skin: no rashes Neurologic: moves all extremities Psychiatric: A+Ox3, euthymic affect Genitourinary: Minimal CVA tenderness to percussion on the left side Results & Data Vital Signs (Past 12 Hours) Vital Signs Temp Pulse Pulse Resp BP BP Pulse Ox 04/14/23 01:19 75 04/13/23 23:00 75 16 149/97 H 98 04/13/23 22:33 75 22 149/97 H 98 04/13/23 22:30 73 21 149/94 H 98 04/13/23 21:32 82 04/13/23 19:10 36.5 C 96 H 18 136/64 96 O2 Del Method 04/14/23 01:19 04/13/23 23:00 Room Air 04/13/23 22:33 Room Air 04/13/23 22:30 Room Air 04/13/23 21:32 04/13/23 19:10 Room Air PG Care Time/CCT Total # of Minutes Spent Total Time Spent with Patient: Total time spent is greater than 50% in coordination of care (as documented) at patient's floor/unit and/or counseling patient: Coding Level of Care Code 43197 IN/OBS CONSULT LVL 5,80M Diagnoses Abdominal pain R10.9 Abdominal location: unspecified location (1) Abdominal pain Abdominal location: unspecified location Qualified Code(s): R10.9 - Unspecified abdominal pain
[2023-04-14] MEDS ORDERED: PANTOprazole 40 MG in SYRINGE 0 ML IV ONE (02:45)
[2023-04-14] MEDS ORDERED: HYDROmorphone INJ 0.5 MG/0.5 ML SYR IV PRN (03:39)
[2023-04-14] MEDS: SODIUM CHLORIDE 0.9% 1,000 ML IV SCH ×3 (03:39→20:19)
[2023-04-14] MEDS: HYDROmorphone INJ 1 MG/ML SYRINGE IV PRN ×2 (03:59→08:18)
[2023-04-14] MEDS ORDERED: ALBUT/IPRATROP 3MG/0.5MG NEB 3 ML VIAL NEB PRN (04:11)
--- NOTE | 2023-04-14 05:06 | Billing Data ---
Date of Service April 14, 2023 Coding Level of Care Code 91122 INT INP/OBS CARE
[2023-04-14 06:48] LABS: Basophils # (auto) 0.04 K/uL (0.00-0.20); Basophils % (auto) 0.6 %; Eosinophils % (auto) 1.6 %; Hematocrit (blood only) 37.5 % (37.0-47.0); Hemoglobin 11.8 g/dl (12.0-16.0); Immature Granulocytes # (auto) 0.07 K/uL (0.01-0.20); Immature Granulocytes % (auto) 1.1 %; Lymphocytes # (auto) 1.71 K/uL (1.20-3.40); Lymphocytes % (auto) 27.1 %; Mean Corpuscular Hemoglobin 27.6 pg (25.0-34.0); Mean Corpuscular Hgb Conc 31.5 g/dL (32.0-36.0); Mean Corpuscular Volume 87.8 fL (80.0-100.0); Mean Platelet Volume 9.3 fL (9.4-12.4); Monocytes # (auto) 0.64 K/uL (0.11-0.59); Monocytes % (auto) 10.1 %; Neutrophils # (auto) 3.76 K/uL (1.40-6.50); Neutrophils % (auto) 59.5 %; Platelet Count 240 K/uL (130-400); RDW Coefficient of Variation 13.8 % (11.5-14.5); RDW Standard Deviation 43.8 fL (36.4-46.3); Red Blood Count 4.27 M/uL (4.20-5.40); White Blood Count 6.32 K/ul (4.8-10.8)
[2023-04-14 07:20] LABS: Albumin Globulin Ratio 1.1 (0.9-2); Albumin Level 3.4 gm/dl (3.4-5.0); Bilirubin,Total 0.4 mg/dl (0.2-1.0); Calcium 8.8 mg/dl (8.6-10.3); Est GFR (African American) 82.7 ml/min; Est GFR (Non-African American) 71.4 ml/min; Globulin 3.2 gm/dl (2.5-4.0); Magnesium 1.8 mg/dl (1.7-2.4); Potassium 4.1 mmol/L (3.5-5.1); Total Protein 6.6 gm/dl (6.0-8.3)
--- NOTE | 2023-04-14 07:21 | XRay Report ---
KUB CLINICAL HISTORY: stent, pain COMPARISON STUDY: CT of the abdomen and pelvis March 22, 2023. MRI of the abdomen March 24. FINDINGS: There are cholecystectomy clips. Left ureteral stent is in place. No urinary calculi are id entified. The bowel gas pattern is normal. No evidence for free air on supine exam. IMPRESSION: Left ureteral stent in place. No urinary calculi. ACT 112: Negative or not required by law. Electronically signed by: Americo Joya M.D. 04/14/2023 7:20 AM
[2023-04-14] MEDS: ONDANSETRON INJ 2 MG/ML 2 ML VIAL IV PRN ×3 (08:10→19:49)
--- NOTE | 2023-04-14 08:36 | Urology Progress Note ---
Date of Service April 14, 2023 Assessment & Plan (1) Abdominal pain: Plan: 62 yo F admitted with abdominal pain and nausea; recently status post left ureteroscopy, laser lithotripsy, and left stent placement on 04/09/23. - Afebrile, lab work reviewed - creatinine 0.86, WBC 6.32 - UA on arrival was positive for nitrates, negative for bacteria - Treated with Rocephin on arrival; no urine culture pending - Continues to have abdominal pain and nausea - Possibly having stent related discomfort, but her discomfort seems more pronounced on the right - CT reviewed and left ureteral stent in good position, no hydronephrosis - No acute intervention planned today - Recommend Tamsulosin, Pyridium, Oxybutynin, and consider addition of Ketorolac for stent management - Her left stones have been treatedwill plan for left stent removal this week as an outpatient pending course - Continue supportive care and medical management per hospital team - will follow Admission and Anticipated Discharge Date Admission Date: April 14, 2023 Subjective Patient seen and examined at bedside, chart reviewed Reports discomfort across abdomen, more pronounced on the right side Continues to have nausea, no vomiting Reports last BM yesterday Voiding without difficulty, no dysuria Reports occasional chills, no fever Review of Systems Constitutional: as per Subjective / HPI Gastrointestinal: as per Subjective / HPI Genitourinary: as per Subjective / HPI Physical Exam Physical Exam: General: no acute distress HEENT: Normocephalic Pulmonary: Nonlabored respirations Abdomen: soft, mildly tender to palpation generalized across abdomen, R>L Extremities: Moves all 4 spontaneously Neuro: No gross deficits Psych: alert and oriented, normal mood Skin: Warm, dry, no rashes noted : no CVA tenderness Results & Data Vital Signs (Past 12 Hours) Vital Signs Temp Pulse Pulse Pulse Resp BP BP 04/14/23 07:43 36.5 C 75 16 134/78 04/14/23 06:35 04/14/23 03:32 36.5 C 80 18 132/78 04/14/23 03:30 04/14/23 03:30 04/14/23 03:30 04/14/23 03:30 36.5 C 80 18 132/78 04/14/23 03:15 74 20 140/88 04/14/23 03:00 74 20 140/88 04/14/23 01:19 75 01/01/24 23:00 75 16 149/97 H 04/13/23 22:33 75 22 149/97 H 04/13/23 22:30 73 21 149/94 H 04/13/23 21:32 82 Pulse Ox Pulse Ox O2 Del Method O2 Del Method 04/14/23 07:43 96 Room Air 04/14/23 06:35 94 Room Air 04/14/23 03:32 94 Room Air 04/14/23 03:30 94 Room Air 04/14/23 03:30 Room Air 04/14/23 03:30 Room Air 04/14/23 03:30 94 Room Air 04/14/23 03:15 94 Room Air 04/14/23 03:00 94 Room Air 04/14/23 01:19 04/13/23 23:00 98 Room Air 04/13/23 22:33 98 Room Air 04/13/23 22:30 98 Room Air 04/13/23 21:32 PG Care Time/CCT Total # of Minutes Spent Total Time Spent with Patient: Total time spent is greater than 50% in coordination of care (as documented) at patient's floor/unit and/or counseling patient: Coding Level of Care Code None Diagnoses Abdominal pain R10.9 Abdominal location: unspecified location (1) Abdominal pain Abdominal location: unspecified location Qualified Code(s): R10.9 - Unspecified abdominal pain
[2023-04-14] MEDS ORDERED: ALPRAZolam 0.25 MG TABLET PO ONE (09:12)
[2023-04-14] MEDS ORDERED: LORazepam 0.25 MG in SYRINGE 0.125 ML IV STA (09:17)
[2023-04-14] MEDS: FLUTICASONE/VILANTEROL 100/25MCG 14 PUFFS/INHALER INH SCH (09:24)
[2023-04-14] MEDS: FLUTICASONE PROPIONATE NA SPR 16 GM BTL SCH (09:28)
[2023-04-14] MEDS ORDERED: busPIRone 5 MG TAB PO PRN (09:32)
[2023-04-14] MEDS ORDERED: DICYCLOMINE HCL 10 MG CAP PO PRN (09:32)
[2023-04-14] MEDS: AZELASTINE HCL 0.1% NASAL 200 SPRAYS/27,400 MCG BTL SCH ×2 (11:09→20:19)
[2023-04-14] MEDS: LEVOTHYROXINE SODIUM 88 MCG TABLET PO SCH (11:14)
[2023-04-14] MEDS: GABAPENTIN 100 MG CAP PO SCH ×2 (11:14→22:23)
[2023-04-14] MEDS: buPROPion SR 150 MG TABCR PO SCH ×2 (11:15→22:23)
[2023-04-14] MEDS: COLESTIPOL HCL 1 GM TAB PO SCH (12:17)
[2023-04-14] MEDS: ACETAMINOPHEN 1,000 MG/100 ML VIAL IV PRN (12:27)
--- NOTE | 2023-04-14 12:34 | Electrocardiogram Report ---
Test Reason : Blood Pressure : / mmHG Vent. Rate : 091 BPM Atrial Rate : 091 BPM P-R Int : 144 ms QRS Dur : 084 ms QT Int : 366 ms P-R-T Axes : 061 019 057 degrees QTc Int : 450 ms Normal sinus rhythm Normal ECG When compared with ECG of 22-MAR-2023 14:23, No significant change was found Confirmed by Randy Servin ([id number]) on 04/14/2023 12:33:57 PM Referred By: REFERRED SELF Confirmed By:Randy Servin
--- NOTE | 2023-04-14 13:51 | Magnetic Resonance Report ---
MRCP CLINICAL HISTORY: Elevated hepatic transaminases. Biliary ductal dilatation. COMPARISON STUDY: Abdominal CT dated 04/13/2023. TECHNIQUE: Abdominal MRCP is performed utilizing various T2-weighted sequences in the axial and coron al planes. 3-D reformats are created and assessed. IV contrast was not administered for this examinat ion. Diffusion-weighted imaging was utilized. FINDINGS: The bladder is surgically absent. There is mild intrahepatic biliary ductal dilatation. The common bi le duct measures up to 14 mm diameter. No intraluminal filling defects are seen to suggest choledocho lithiasis. There is prominence of the pancreatic duct, which measures up to 3 mm in diameter. The unenhanced liver, spleen, pancreas, adrenal glands, and kidneys are grossly normal. Left ureteral stent is likely in place. The abdominal aorta is normal in course and caliber. There is no abdominal ascites. There is no evidence of bowel obstruction. No pleural effusion is seen. The bony structures are normal as imaged. IMPRESSION: 1. Status post cholecystectomy. 2. Mild intrahepatic biliary ductal dilatation as well as dilatation of the common bile duct is simil ar to previous. 3. There is no evidence of choledocholithiasis. 4. There is also mild prominence of the pancreatic duct. 5. There is no MRI evidence of obstructing lesion. If warranted, this could be further assessed with ERCP. 6. The small enhancing right renal lesion questioned on prior abdominal CT scans is not visualized on this unenhanced MRI. Dictated: 04/14/2023 10:41 AM Transcribed: 04/14/2023 10:58 AM Rajan [id number] [facility] Electronically signed by: Tu Diez M.D. 04/14/2023 1:50 PM
--- NOTE | 2023-04-14 15:21 | Hospitalist Progress Note ---
Date of Service April 14, 2023 Assessment & Plan (1) Post-op pain: Plan: 62 yo female with PMHx of COPD, HLD, depression, anxiety, fibromyalgia, HTN, hypothyroidism, and GERD presents with abdominal pain. -S/p L Ureteral stent placement 04/[address] Park presenting with diffuse abdominal pain and nausea. Labs reassuring, no leukocytosis, Hgb wnl. UA with +LE and +WBC but without bacteria. -CT A/P: No hydronephrosis of either kidney. Cholecystectomy. There is mild biliary dilation, however, LFTs normal. -on prophylactic doxycycline since procedure and given rocephin x1 in the ED. Will defer further abx to urology. - recommend continue 7 day course of doxycyline -Urology consulted - Suspect pain is not stent related as more on Right side - No intervention planned, stent will be removed outpatient - Continue Tamsulosin (pt refusing, causes her sinus problems), Pyridium and Oxybutyin, consider Ketorolac for stent management (2) Abdominal pain: Plan: 04/14: abdominal pain has become more concentrated to RUQ with some lower abdominal cramping -LFTs increased AST-117, ALT-70 -MRCP without obstruction, CBD dilation but no stones, prominent pancreatic duct -GI consulted, appreciate recs -Patient very hesistant to take medications as she is worried anything will make pain worse. Recommended she take Senna to help with any constipation she may be having. -Continue home Colestipol -Phenergran q6 -Protonix BID -tylenol and diluadid for pain control -PRN bentyl and zofran (3) COPD (chronic obstructive pulmonary disease): Plan: -Patient on symbicort at home, refusing Breo as it makes her swell up -PRN nebs (4) Hyperlipidemia: Plan: - Continue Lipitor (5) Hypothyroidism: Plan: Continue home synthroid TSH : 2.4 (6) Hypertension: Plan: Continue Propranolol (7) Fibromyalgia: Plan: Continue Gabapenin (8) Depression with anxiety: Plan: - Continue Wellbutrin -Buspar TID prn Plan DVT ppx: SCDs, ambulation; avoid chemical in case of procedure Dispo: continued inpatient stay Admission and Anticipated Discharge Date Admission Date: April 14, 2023 Supervising Physician Co-Signing Physician Notes PA Supervision Note: I did not personally see or examine the patient today, but I verified all robbins points of JOSE Sprague's assessment and plan with the following exceptions/additions: None Subjective Patient seen sitting up in bed, son present at bedside. reports that she is still having abdominal pain that feels different from her baseline. Most of her pain is focused in the RUQ. Denies left back/flank pain that would be consistent with her stent placement. Does have some lower abdominal cramping as well. Reports she was constipated after taking the Percocet from stent placement, has had small bowel movements since. Has been NPO, but decreased appetite and is worried that eating will make things worse. PCP started her on PRN buspar for anxiety but she has not taken this yet. Does feel like her anxiety is increased with her hospitalization and continued abdominal pain. Review of Systems Review of Systems: All systems reviewed & are unremarkable except as noted in Subjective Physical Exam Physical Exam: General: WN/WD, NAD, VS as above, sitting up in bed HEENT: mild nasal congestion Resp: normal respiratory effort, lungs clear to auscultation CV: RRR, no murmur, Abd: normal bowel sounds, diffuse mild abdominal tenderness, but moderate tenderness RUQ. No guarding Extremities: Moves all extremities, no edema Neuro: A&O x3, Results & Data Results & Data Vital Signs (Past 12 Hours) Vital Signs Temp Pulse Pulse Resp BP BP Pulse Ox 04/14/23 14:36 36.5 C 80 16 132/76 94 04/14/23 07:43 36.5 C 75 16 134/78 96 04/14/23 06:35 04/14/23 03:32 36.5 C 80 18 132/78 94 04/14/23 03:30 04/14/23 03:30 04/14/23 03:30 04/14/23 03:30 36.5 C 80 18 132/78 94 04/14/23 03:15 74 20 140/88 94 Pulse Ox O2 Del Method O2 Del Method 04/14/23 14:36 Room Air 04/14/23 07:43 Room Air 04/14/23 06:35 94 Room Air 04/14/23 03:32 Room Air 04/14/23 03:30 94 Room Air 04/14/23 03:30 Room Air 04/14/23 03:30 Room Air 04/14/23 03:30 Room Air 04/14/23 03:15 Room Air Laboratory Results CBC and chemistry reveiwed PG Care Time/CCT Total # of Minutes Spent Total Time Spent with Patient: Total time spent is greater than 50% in coordination of care (as documented) at patient's floor/unit and/or counseling patient: Coding Level of Care Code None Diagnoses Post-op pain G89.18 Abdominal pain R10.9 Abdominal location: unspecified location COPD (chronic obstructive pulmonary disease) J44.9 Hyperlipidemia E78.5 Hypothyroidism E03.9 Hypertension I10 Fibromyalgia M79.7 Depression with anxiety F41.8 (2) Abdominal pain Abdominal location: unspecified location Qualified Code(s): R10.9 - Unspecified abdominal pain
[2023-04-14] MEDS: PROMETHAZINE HCL 6.25 MG in SODIUM CHLORIDE 0.9% 50 ML IV PRN ×2 (15:46→22:16)
[2023-04-14] MEDS: PANTOprazole 40 MG in SYRINGE 0 ML IV SCH (20:19)
[2023-04-14] MEDS: DOXYCYCLINE HYCLATE 100 MG CAP PO SCH (22:23)
[2023-04-14] MEDS: PROPRANOLOL HCL 60 MG LA CAP PO SCH (22:23)
[2023-04-14] MEDS: ATORVASTATIN 20 MG TAB PO SCH (22:23)
[2023-04-15] MEDS: ACETAMINOPHEN 1,000 MG/100 ML VIAL IV PRN ×3 (00:13→21:05)
[2023-04-15] MEDS: HYDROmorphone INJ 1 MG/ML SYRINGE IV PRN ×3 (00:33→17:49)
[2023-04-15] MEDS: SODIUM CHLORIDE 0.9% 1,000 ML IV SCH ×3 (04:51→21:05)
[2023-04-15] MEDS: LEVOTHYROXINE SODIUM 88 MCG TABLET PO SCH (04:52)
[2023-04-15] MEDS: ONDANSETRON INJ 2 MG/ML 2 ML VIAL IV PRN ×3 (05:15→17:49)
[2023-04-15 07:45] LABS: Basophils # (auto) 0.04 K/uL (0.00-0.20); Basophils % (auto) 0.6 %; Eosinophils # (auto) 0.22 K/uL (0.00-0.50); Eosinophils % (auto) 3.2 %; Hematocrit (blood only) 35.5 % (37.0-47.0); Hemoglobin 10.7 g/dl (12.0-16.0); Immature Granulocytes # (auto) 0.05 K/uL (0.01-0.20); Immature Granulocytes % (auto) 0.7 %; Lymphocytes # (auto) 1.56 K/uL (1.20-3.40); Lymphocytes % (auto) 22.5 %; Mean Corpuscular Hemoglobin 27.2 pg (25.0-34.0); Mean Corpuscular Hgb Conc 30.1 g/dL (32.0-36.0); Mean Corpuscular Volume 90.3 fL (80.0-100.0); Mean Platelet Volume 9.4 fL (9.4-12.4); Monocytes # (auto) 0.64 K/uL (0.11-0.59); Monocytes % (auto) 9.2 %; Neutrophils # (auto) 4.41 K/uL (1.40-6.50); Neutrophils % (auto) 63.8 %; Platelet Count 220 K/uL (130-400); RDW Coefficient of Variation 13.9 % (11.5-14.5); RDW Standard Deviation 45.2 fL (36.4-46.3); Red Blood Count 3.93 M/uL (4.20-5.40); White Blood Count 6.92 K/ul (4.8-10.8)
[2023-04-15 08:07] LABS: Albumin Globulin Ratio 1.2 (0.9-2); Albumin Level 3.1 gm/dl (3.4-5.0); BUN Creatinine Ratio 11.8 (10-20); Bilirubin,Total 0.6 mg/dl (0.2-1.0); Creatinine Clr Calc Pharmacy 84.8 ml/min; Est GFR (African American) 107.1 ml/min; Est GFR (Non-African American) 92.4 ml/min; Globulin 2.6 gm/dl (2.5-4.0); Potassium 3.6 mmol/L (3.5-5.1); Total Protein 5.7 gm/dl (6.0-8.3)
[2023-04-15] MEDS: PROMETHAZINE HCL 6.25 MG in SODIUM CHLORIDE 0.9% 50 ML IV PRN ×2 (08:12→21:31)
[2023-04-15] MEDS: CETIRIZINE HCL 10 MG TABLET PO SCH (08:13)
[2023-04-15] MEDS: GABAPENTIN 100 MG CAP PO SCH ×2 (08:14→21:35)
[2023-04-15] MEDS: PANTOprazole 40 MG in SYRINGE 0 ML IV SCH ×2 (08:14→21:34)
[2023-04-15] MEDS: FLUTICASONE PROPIONATE NA SPR 16 GM BTL SCH (08:14)
[2023-04-15] MEDS: DOXYCYCLINE HYCLATE 100 MG CAP PO SCH (08:14)
[2023-04-15] MEDS: AZELASTINE HCL 0.1% NASAL 200 SPRAYS/27,400 MCG BTL SCH ×2 (08:14→21:34)
[2023-04-15] MEDS: buPROPion SR 150 MG TABCR PO SCH ×2 (08:14→21:35)
[2023-04-15] MEDS: oxyBUTYnin chloride 5 MG TAB PO PRN (08:15)
[2023-04-15] MEDS: FLUTICASONE/VILANTEROL 100/25MCG 14 PUFFS/INHALER INH SCH ×2 (08:15→08:20)
--- NOTE | 2023-04-15 08:59 | Urology Progress Note ---
Date of Service April 15, 2023 Assessment & Plan (1) Abdominal pain: Plan: 62 yo F admitted with abdominal pain and nausea; recently status post left ureteroscopy, laser lithotripsy, and left stent placement on 04/09/23. - Patient afebrile - Lab work reviewed - creatinine 0.68, WBC 6.92 - UA on arrival was positive for nitrates, negative for bacteria - Treated with Rocephin on arrival - Plan was to continue with previous course of Doxycycline, but discontinued due to concern with increase of LFTs and GI upset - Ordered Fluconazole 150 mg x 1 for possible yeast infection - Continues to have abdominal pain and nausea - Her discomfort seems more pronounced on the right, so likely not related to her stent - GI consult pending - No acute intervention planned today - Recommend Tamsulosin, Pyridium, Oxybutynin, and consider addition of Ketorolac for stent management as needed - Will plan for left stent removal as an outpatient pending course - Continue supportive care and medical management per hospital team - will follow peripherally Admission and Anticipated Discharge Date Admission Date: April 14, 2023 Subjective Patient seen and examined at bedside this morning, chart reviewed She is awake and sitting up at side of the bed Continues to have abdominal discomfort, predominantly right upper quadrant Reports central low back pain this morning Continues to have nausea, decreased appetite Voiding without difficulty, no dysuria or hematuria She does report some vaginitis/itching symptoms and requests treatment Occasional chills, no fevers Review of Systems Constitutional: as per Subjective / HPI Gastrointestinal: as per Subjective / HPI Genitourinary: as per Subjective / HPI Physical Exam Constitutional: well developed and well nourished; no acute distress Respiratory: normal respiratory effort; no respiratory distress and no labored breathing Gastrointestinal (Abdomen): Inspection/Auscultation: abdomen normal to inspection Musculoskeletal: Head/Neck/Chest: normocephalic Neurologic: moves all extremities and awake Psychiatric: Orientation: alert and oriented x 3 Results & Data Vital Signs (Past 12 Hours) Vital Signs Temp Pulse Resp BP Pulse Ox O2 Del Method 04/15/23 07:16 36.6 C 82 16 151/82 H 96 Room Air 04/15/23 05:23 36.6 C PG Care Time/CCT Total # of Minutes Spent Total Time Spent with Patient: Total time spent is greater than 50% in coordination of care (as documented) at patient's floor/unit and/or counseling patient: Coding Level of Care Code 54081 SUB INP/OBS CARE 05/07MIN Diagnoses Abdominal pain R10.9 Abdominal location: unspecified location (1) Abdominal pain Abdominal location: unspecified location Qualified Code(s): R10.9 - Unspecified abdominal pain
[2023-04-15] MEDS ORDERED: FLUCONAZOLE 50 MG TAB PO ONE (09:15)
--- NOTE | 2023-04-15 10:17 | Gastrointestinal Consultation ---
Date of Consultation April 15, 2023 Assessment & Plan (1) Abdominal pain: (2) Abnormal findings on imaging of biliary tract: Plan Given normalized liver panel and normal WBC count, no need for urgent GI work up. Discussed wtih [facility]. EUS can be arranged as an outpatient when acute urological issues have resolved. Continue supportive care with BID PPI. Can consider adding Carafate 1 g ACHS. Continue supportive care per primary team. Thank you for allowing us to participate in the care of this patient. If you have any questions or concerns, please do not hesitate to contact us. Supervising Physician Co-Signing Physician Notes Agree with HADLEY Marques as above Abd: Soft, NT, ND, +BS Continue current therapy and supportive care Proceed with outpatient EUS with [facility] History of Present Illness Reason for Consultation: RUQ pain, elevated liver enzymes, negative MRCP Requesting Physician: Clarita Sprague PA-C Attending Physician: Leda House MD History of Present Illness Patient is a 62 y.o. female with a history of chronic abdominal pain seen today in consultation for worsening RUQ pain s/p cystoscopy for nephrolithiasis on 04/09. Patient is a patient of [facility] and was evaluated by Dr. Jain during her last admission on 03/26/23. At that time, due to extensive past GI work up was felt to be most likely functional and recommendation was for trial of TCA. She states that she improved after discharge at that time but attributes her improvement to being on 5 days of oral antibiotics. GI has been consulted today in regard to elevated AST/ALT and abnormal CT imaging which demonstrated: "IMPRESSION: 1. Cholecystectomy. 2. There is increasing biliary dilatation when compared to prior CT, with common bile duct at 1.5 cm. No calcified duct stone is visible. If there is laboratory evidence of biliary obstruction, consider MRCP." At that time, her liver panel was as follows: TB 0.4, AST 117, ALT 70, and ALP 82. MRCP was then obtained and as follows: "IMPRESSION: 1. Status post cholecystectomy. 2. Mild intrahepatic biliary ductal dilatation as well as dilatation of the common bile duct is similar to previous. 3. There is no evidence of choledocholithiasis. 4. There is also mild prominence of the pancreatic duct. 5. There is no MRI evidence of obstructing lesion. If warranted, this could be further assessed with ERCP. 6. The small enhancing right renal lesion questioned on prior abdominal CT scans is not visualized on this unenhanced MRI." Patient's liver panel has since normalized. Despite this, she reports ongoing RUQ pain that radiates into her back. Currently, the pain is rated as 7/10. Mild associated nausea but no vomiting. Reports several loose stools this morning, but no overt GIB symptoms. Remains on Pantoprazole 40 mg BID. Allergies Allergy/AdvReac Type Severity Reaction Status Date / Time vilanterol Allergy Severe Swelling Verified 04/13/23 20:58 [From Breo Ellipta] and GI Upset bacitracin Allergy Intermediate Hives Verified 04/13/23 20:58 [From Neosporin ([id number])] neomycin Allergy Intermediate Hives Verified 04/13/23 20:58 [From Neosporin ([id number])] polymyxin B Allergy Intermediate Hives Verified 04/13/23 20:58 [From Neosporin ([id number])] amoxicillin [From Augmentin] AdvReac Intermediate Caused C. Verified 04/13/23 20:58 diff clavulanic acid AdvReac Intermediate Caused C. Verified 04/13/23 20:58 [From Augmentin] diff levofloxacin AdvReac Intermediate tendinopath Verified 04/13/23 20:58 y olmesartan AdvReac Intermediate Diarrhea Verified 04/13/23 20:58 Home Medications Medication Instructions Recorded Confirmed Type coenzyme Q10 100 mg tablet 100 mg PO QAM 09/06/18 04/13/23 History vitamin E 268 mg (400 unit) capsule 400 unit PO QAM 09/06/18 04/13/23 History inhalational spacing device #1 ea 09/22/18 04/02/23 Rx (Vortex [employer] Chamber) lactobacillus combination no.4 3 3,000 mmu cells PO QAM 02/16/19 04/13/23 History billion cell capsule (Probiotic) azelastine 205.5 mcg (0.15 %) 2 spray intranasal BID 04/12/19 04/13/23 History nasal spray ascorbate calcium (vitamin C) 500 1,000 mg PO QAM PRN NEEDED PER 08/06/20 04/13/23 History mg tablet PT. multivitamin (Daily Multi-Vitamin 1 tab PO QAM 08/06/20 04/13/23 History tablet) albuterol sulfate 90 mcg/actuation 2 puff inhalation Q4H PRN 05/19/22 04/13/23 Rx aerosol inhaler (Ventolin HFA) Shortness Of Breath Or Wheezing #18 grams budesonide-formoterol HFA 80 2 inh inhalation BID 06/24/22 04/13/23 History mcg-4.5 mcg/actuation aerosol inhaler (Symbicort) omega-3 fatty acids 1,000 mg 1,000 mg PO QAM 06/24/22 04/13/23 History capsule bupropion HCl 150 mg tablet,12 hr 150 mg PO BID #180 ea 07/11/22 04/13/23 Rx sustained-release fluticasone propionate 50 1 spray intranasal DAILY 30 days 07/22/22 04/13/23 Rx mcg/actuation nasal #48 grams spray,suspension atorvastatin 20 mg tablet 20 mg PO HS #90 tabs 11/13/22 04/13/23 Rx hydrochlorothiazide 25 mg tablet 25 mg PO QAM 12/11/22 04/13/23 History bismuth subsalicylate 262 mg 524 mg PO QID PRN UPSET STOMACH 12/29/22 04/13/23 History tablet (Pepto-Bismol) estradiol 0.01% (0.1 mg/gram) 0.25 appful vaginal DAILY #42.5 02/12/23 04/13/23 Rx vaginal cream grams levocetirizine 5 mg tablet 5 mg PO QAM 02/13/23 04/13/23 History levothyroxine 88 mcg tablet 88 mcg PO QAM 02/13/23 04/13/23 History potassium chloride 20 mEq 30 meq PO QAM 02/13/23 04/13/23 History tablet,extended release(part/cryst) (Klor-Con M) propranolol 60 mg capsule,24 60 mg PO HS 02/13/23 04/13/23 History hr,extended release gabapentin 100 mg capsule 100 mg PO TID #270 caps 03/09/23 04/13/23 Rx mupirocin 2 % topical ointment 1 applic topical BID PRN Skin 03/21/23 04/13/23 History Irritation celecoxib 100 mg capsule 100 mg PO BID PRN Pain 03/22/23 04/13/23 History colestipol 1 gram tablet (Colestid) 1 g PO DAILY@1000 #30 tabs 03/29/23 04/13/23 Rx dicyclomine 10 mg capsule 10 mg PO QID PRN abdominal pain 03/29/23 04/13/23 Rx #60 caps doxycycline hyclate 100 mg capsule 100 mg PO BID #14 caps 04/09/23 04/13/23 Rx oxycodone-acetaminophen 7.5 mg-325 1 tab PO Q8H PRN pain #7 tabs 04/09/23 04/13/23 Rx mg tablet (Percocet) pantoprazole 40 mg tablet,delayed 40 mg PO BID 04/09/23 04/13/23 History release (Protonix) phenazopyridine 200 mg tablet 200 mg PO Q8H PRN pain #10 tabs 04/09/23 04/13/23 Rx (Pyridium) tamsulosin 0.4 mg capsule 0.4 mg PO HS #30 caps 04/09/23 04/13/23 Rx buspirone 5 mg tablet 5 mg PO DIRECTED PRN anxiety 04/13/23 04/13/23 History ondansetron HCl 4 mg tablet 4 mg PO TID PRN NAUSEA/VOMITING 04/13/23 04/13/23 History Patient History Medical History Encounter for pre-operative examination COVID-19 Diarrhea Hyperglycemia Malaise and fatigue Acute diverticulitis Renal mass [place] [facility] aware, monitoring Paresthesia of upper extremity Osteoarthritis Kidney stones current History of Helicobacter pylori infection Hx of Clostridium difficile infection Remote hx approximately 30 years ago Hx of diverticulitis of colon History of COVID-19 03/19/2023 ([place], [place]) > resolved 11/2021- fatigue, congestion, cough, sore throat > resolved Hx of melanoma of skin Pulmonary embolism Remote hx approximately 30 years ago, after SUMAN (blood thinners x 3 months) Sciatica COPD (chronic obstructive pulmonary disease) Mild reactive airways disease Allergic rhinitis Depression with anxiety Esophageal reflux Fibromyalgia Hypertension Irritable bowel syndrome Hypothyroidism Hyperlipidemia History of asthma Surgical History Hx of vascular surgery Dr Morales [facility] 07/2022 Distal LT GSV accessed under ultrasound guidance with placement of 4Fr sheath History of esophagogastroduodenoscopy (EGD) Hx of cataract extraction Hx of melanoma excision stomach S/P dilation and curettage History of cryosurgery S/P laparoscopic procedure History of colonoscopy (10/12/19) 4 polyps removed, [facility], Dr. Roque S/P tonsillectomy S/P sinus surgery S/P SUMAN-BSO S/P laparoscopic cholecystectomy S/P appendectomy Family History Mother Diabetes Father Heart disease Other Asthma Cancer Gallbladder disease Hypertension Stroke Denies family history of Ovarian cancer Myocardial infarction Breast cancer Colorectal cancer Colonic polyp Uterine cancer Social History Smoking Status: Former smoker Tobacco Type: Cigarettes Age Started Using Tobacco: 18; Age Quit Using Tobacco: 58; Second Hand Exposure: No; Do You Dip or Chew Tobacco: No; Hx Alcohol Use: No Hx Substance Use: No Preferred Language: Vietnamese Communication Ability: Effective Visual Impairment: No Limitations Hearing Ability: Normal Welfare Adviser Required: No Beliefs That Will Affect Care: None marital status: Current Living Situation: Spouse current occupational status: disabled Feels Safe at Home: Yes Childhood Exposure to Second-Hand Smoke: Yes Dental Care, Regularly: Yes Seatbelt Use: always Sunscreen Use: Yes Do you think of yourself as: straight/heterosexual Sexual Activity: has been sexually active within the last 12 months Assistive Devices: Cane and Glasses Review of Systems Constitutional: no fever and no chills Respiratory: no problem reported Cardiovascular: no problem reported Gastrointestinal: as per Subjective / HPI Physical Exam Constitutional: WD/WN, vitals as above Eyes: EOM intact bilaterally Neck: normal visual inspection Respiratory: normal respiratory effort, lungs clear to auscultation Cardiovascular: Rate/Rhythm: regular rate and regular rhythm Gastrointestinal (Abdomen): Inspection/Auscultation: + abdomen distended and normal bowel sounds Percussion/Palpation: + abdomen tender and abdomen soft; no guarding and abdomen not rigid Psychiatric: A+Ox3, euthymic affect Results & Data Vital Signs (Past 12 Hours) Vital Signs Temp Pulse Resp BP Pulse Ox O2 Del Method 01/03/24 07:16 36.6 C 82 16 151/82 H 96 Room Air 04/15/23 05:23 36.6 C PG Care Time/CCT Total # of Minutes Spent Total Time Spent with Patient: Total time spent is greater than 50% in coordination of care (as documented) at patient's floor/unit and/or counseling patient: Coding Level of Care Code 84041 INT INP/OBS CARE 3/75MIN Diagnoses Abdominal pain R10.9 Abdominal location: unspecified location Abnormal findings on imaging of biliary tract R93.2 (1) Abdominal pain Abdominal location: unspecified location Qualified Code(s): R10.9 - Unspecified abdominal pain
[2023-04-15 10:54] LABS: Appearance Urine Clear (Clear); Bacteria Urine Automated Negative (Negative); Bilirubin Urine Negative (Negative); Blood Urine 3+ (Negative); Color Urine Yellow; Glucose Urine UA Negative (Negative); Ketones Urine Negative (Negative); Leukocyte Esterase Urine 1+ (Negative); Nitrite Urine Negative (Negative); Protein Urine Trace (Negative); RBC Urine Automated >30 /hpf (0-4); Specific Gravity Urine 1.012 (1.000-1.030); Urobilinogen Urine Negative (Negative); WBC Urine Automated >30 /hpf (0-5); pH Urine 5.5 (4.5-7.5)
--- NOTE | 2023-04-15 11:37 | Hospitalist Progress Note ---
Date of Service April 15, 2023 Assessment & Plan (1) Post-op pain: Plan: 62 yo female with PMHx of COPD, HLD, depression, anxiety, fibromyalgia, HTN, hypothyroidism, and GERD presents with abdominal pain. -S/p L Ureteral stent placement 04/[address] Park presenting with diffuse abdominal pain and nausea. Labs reassuring, no leukocytosis, Hgb wnl. UA with +LE and +WBC but without bacteria. -CT A/P: No hydronephrosis of either kidney. Cholecystectomy. There is mild biliary dilation, however, LFTs normal. -on prophylactic doxycycline since procedure and given rocephin x1 in the ED. Will defer further abx to urology. - recommend continue 7 day course of doxycyline, decision to stop today as potentially contributing to GI upset. UC pending, UA not overly infectious -Urology consulted - Suspect pain is not stent related as more on Right side - No intervention planned, stent will be removed outpatient - Continue Tamsulosin (pt refusing, causes her sinus problems), Pyridium and Oxybutyin, consider Ketorolac for stent management (2) Abdominal pain: Plan: 04/14: abdominal pain has become more concentrated to RUQ with some lower abdominal cramping -LFTs increased, but now WNL -MRCP without obstruction, CBD dilation but no stones, prominent pancreatic duct -GI consulted, appreciate recs - no ipatient intervention, recommend EUS outpatient - Consider carafate 1g ACHS (ordered) -Continue home Colestipol -Phenergran q6 -Protonix BID -tylenol and diluadid for pain control -PRN bentyl and zofran (3) COPD (chronic obstructive pulmonary disease): Plan: -Patient on symbicort at home, refusing Breo as it makes her swell up -PRN nebs (4) Kidney lesion: Plan: - again seen on CTA/P, no change in size - continue outpatient urology follow up (5) Hyperlipidemia: Plan: - Continue Lipitor (6) Hypothyroidism: Plan: Continue home Synthroid TSH 02/2023: 2.4 (7) Hypertension: Plan: Continue Propranolol (8) Fibromyalgia: Plan: Continue Gabapenin (9) Depression with anxiety: Plan: - Continue Wellbutrin -Buspar TID prn Plan DVT ppx: lovenox, encourage ambulation Dispo: continued inpatient stay Admission and Anticipated Discharge Date Admission Date: April 14, 2023 Supervising Physician Co-Signing Physician Notes PA Supervision Note: I did not personally see or examine the patient today, but I verified all robbins points of JOSE Sprague's assessment and plan with the following exceptions/additions: None Subjective Patient seen sitting up in chair. Abdominal pain continues, slightly improved from yesterday but remains worse than baseline. Feels that pain is more epigastric. Request Augmentin and Flagyl as that is the only thing that ever helps her. Patient aware she has not had recent positive testing for H.pylori but states "what do I have to loose" When collecting her Urine sample this morning thought she had abnormal discharge when wiping and suspects she is developing a yeast infection. Already received Diflucan, no itching. Does report two small bowel movements this morning. Did not relieve any pain/pressure. Denies CP or SOB. Review of Systems Review of Systems: All systems reviewed & are unremarkable except as noted in Subjective Physical Exam Physical Exam: General: patient sitting up in the chair, NAD HEENT: mild nasal congestion Resp: normal respiratory effort, lungs clear to auscultation. No cough CV: RRR, no murmur, Abd: normal bowel sounds, mild tenderness epigastric and RUQ area. improved from yesterday. no guarding or rebounding Extremities: Moves all extremities, trace edema bilateral extremities Neuro: A&O x3, Results & Data Results & Data Vital Signs (Past 12 Hours) Vital Signs Temp Pulse Resp BP Pulse Ox O2 Del Method 04/15/23 07:16 36.6 C 82 16 151/82 H 96 Room Air 04/15/23 05:23 36.6 C Laboratory Results CBC and chemistry reviewed. PG Care Time/CCT Total # of Minutes Spent Total Time Spent with Patient: Total time spent is greater than 50% in coordination of care (as documented) at patient's floor/unit and/or counseling patient: Coding Level of Care Code 55033 SUB INP/OBS CARE 2/35MIN Diagnoses Post-op pain G89.18 Abdominal pain R10.9 Abdominal location: unspecified location COPD (chronic obstructive pulmonary disease) J44.9 Kidney lesion N28.9 Hyperlipidemia E78.5 Hypothyroidism E03.9 Hypertension I10 Fibromyalgia M79.7 Depression with anxiety F41.8 (2) Abdominal pain Abdominal location: unspecified location Qualified Code(s): R10.9 - Unspecified abdominal pain
[2023-04-15] MEDS: COLESTIPOL HCL 1 GM TAB PO SCH (11:47)
[2023-04-15] MEDS: SUCRALFATE 1 GM/10 ML UDC PO SCH ×3 (14:17→21:34)
[2023-04-15] MEDS: PROPRANOLOL HCL 60 MG LA CAP PO SCH (21:35)
[2023-04-15] MEDS: ATORVASTATIN 20 MG TAB PO SCH (21:35)
[2023-04-16] MEDS: ONDANSETRON INJ 2 MG/ML 2 ML VIAL IV PRN ×4 (03:51→23:27)
[2023-04-16] MEDS: HYDROmorphone INJ 1 MG/ML SYRINGE IV PRN ×3 (03:56→20:09)
[2023-04-16] MEDS: LEVOTHYROXINE SODIUM 88 MCG TABLET PO SCH (05:54)
[2023-04-16] MEDS: SODIUM CHLORIDE 0.9% 1,000 ML IV SCH (05:54)
[2023-04-16 06:34] LABS: Hematocrit (blood only) 34.2 % (37.0-47.0); Hemoglobin 10.3 g/dl (12.0-16.0); Mean Corpuscular Hemoglobin 27.1 pg (25.0-34.0); Mean Corpuscular Hgb Conc 30.1 g/dL (32.0-36.0); Mean Platelet Volume 9.4 fL (9.4-12.4); Platelet Count 212 K/uL (130-400); RDW Coefficient of Variation 13.8 % (11.5-14.5); RDW Standard Deviation 45.1 fL (36.4-46.3); White Blood Count 6.75 K/ul (4.8-10.8)
[2023-04-16 06:52] LABS: Albumin Globulin Ratio 1.2 (0.9-2); Albumin Level 3.1 gm/dl (3.4-5.0); BUN Creatinine Ratio 11.8 (10-20); Bilirubin,Total 0.6 mg/dl (0.2-1.0); Calcium 7.9 mg/dl (8.6-10.3); Creatinine Clr Calc Pharmacy 84.8 ml/min; Est GFR (African American) 107.1 ml/min; Est GFR (Non-African American) 92.4 ml/min; Globulin 2.6 gm/dl (2.5-4.0); Potassium 3.3 mmol/L (3.5-5.1); Total Protein 5.7 gm/dl (6.0-8.3)
[2023-04-16] MEDS ORDERED: POTASSIUM CHLORIDE CRTAB 20 MEQ TABCR PO STA (08:01)
[2023-04-16] MEDS: PROMETHAZINE HCL 6.25 MG in SODIUM CHLORIDE 0.9% 50 ML IV PRN (08:11)
[2023-04-16] MEDS: FLUTICASONE PROPIONATE NA SPR 16 GM BTL SCH (08:14)
[2023-04-16] MEDS: SUCRALFATE 1 GM/10 ML UDC PO SCH ×4 (08:15→20:13)
[2023-04-16] MEDS: CETIRIZINE HCL 10 MG TABLET PO SCH (08:15)
[2023-04-16] MEDS: AZELASTINE HCL 0.1% NASAL 200 SPRAYS/27,400 MCG BTL SCH ×2 (08:15→20:13)
[2023-04-16] MEDS: FLUTICASONE/VILANTEROL 100/25MCG 14 PUFFS/INHALER INH SCH ×2 (08:16→08:28)
[2023-04-16] MEDS: PANTOprazole 40 MG in SYRINGE 0 ML IV SCH ×2 (08:16→20:15)
[2023-04-16] MEDS: GABAPENTIN 100 MG CAP PO SCH ×2 (08:16→20:12)
[2023-04-16] MEDS: buPROPion SR 150 MG TABCR PO SCH ×2 (08:16→20:14)
[2023-04-16] MEDS ORDERED: LIDOCAINE 5% 1 PATCH TD STA (10:10)
--- NOTE | 2023-04-16 10:28 | Hospitalist Progress Note ---
Date of Service April 16, 2023 Assessment & Plan (1) Post-op pain: Plan: 62 yo female with PMHx of COPD, HLD, depression, anxiety, fibromyalgia, HTN, hypothyroidism, and GERD presents with abdominal pain. -S/p L Ureteral stent placement 04/[address] Park presenting with diffuse abdominal pain and nausea. Labs reassuring, no leukocytosis, Hgb wnl. UA with +LE and +WBC but without bacteria. -CT A/P: No hydronephrosis of either kidney. Cholecystectomy. There is mild biliary dilation, however, LFTs normal. -on prophylactic doxycycline since procedure and given rocephin x1 in the ED. Will defer further abx to urology. - recommend continue 7 day course of doxycyline, decision to stop today as potentially contributing to GI upset. - UC - no grwoth, less than 1000 colonies -Urology consulted - Suspect pain is not stent related as more on Right side - No intervention planned, stent will be removed outpatient - Continue Tamsulosin (pt refusing, causes her sinus problems), Pyridium and Oxybutyin, consider Ketorolac for stent management (2) Abdominal pain: Plan: 04/14: abdominal pain has become more concentrated to RUQ with some lower abdominal cramping -LFTs increased, but now WNL -MRCP without obstruction, CBD dilation but no stones, prominent pancreatic duct -GI consulted, appreciate recs - no inpatient intervention, recommend EUS outpatient - Consider carafate 1g ACHS (ordered) -Continue home Colestipol -Phenergran q6 -Protonix BID -Schedule bentyl QID -tylenol and diluadid for pain control -PRN zofran -lidocaine patch for low back pain 1/4 hypokalemia, 3.3 replaced orally, recheck AM (3) COPD (chronic obstructive pulmonary disease): Plan: -Patient on symbicort at home, refusing Breo as it makes her swell up -PRN nebs (4) Kidney lesion: Plan: - again seen on CTA/P, no change in size - continue outpatient urology follow up (5) Hyperlipidemia: Plan: - Continue Lipitor (6) Hypothyroidism: Plan: Continue home Synthroid TSH 02/2023: 2.4 (7) Hypertension: Plan: Continue Propranolol (8) Fibromyalgia: Plan: Continue Gabapenin (9) Depression with anxiety: Plan: - Continue Wellbutrin - Schedule buspar TID (10) Vaginal discharge: Plan: with burning - was given Diflucan yesterday, now concerned she has BV - BV panel pending Plan DVT ppx: lovenox, encourage ambulation Dispo: continued inpatient stay Admission and Anticipated Discharge Date Admission Date: April 14, 2023 Supervising Physician Co-Signing Physician Notes PA Supervision Note: I did not personally see or examine the patient today, but I verified all robbins points of JOSE Sprague's assessment and plan with the following exceptions/additions: None Subjective Patient seen sitting at the side of the bed. Continue to have abdominal pain, states it the worse it has ever been since she has been off the amoxicillin and flagyl. She did have loose stools this morning. Phenergran has been helping her nausea. Tearful at time when talking about how long she has been dealing with her abdominal pain. She is very anxious to get her EUS and was requesting transfer but explained to patient this did not need to be done emergently. Has not taken prn bentyl or buspar this admission but she is agreeable to try these. I reexamined Awa this afternoon and feels some imporvement after bentyl and buspar, along with phenergran and tylenol. Will make the bentyl and buspar scheduled. Also relays to me that Boni MANLEY can see her 05/01 but she is hoping for an earlier appointment. Review of Systems Review of Systems: All systems reviewed & are unremarkable except as noted in Subjective Physical Exam Physical Exam: General: patient sitting up in the chair, NAD HEENT: mild nasal congestion Resp: normal respiratory effort, lungs clear to auscultation. No cough CV: RRR, no murmur, Abd: normal bowel sounds, mild tenderness epigastric and RUQ area. improved from yesterday. no guarding or rebounding Extremities: Moves all extremities, trace edema bilateral extremities Neuro: A&O x3, Results & Data Results & Data Vital Signs (Past 12 Hours) Vital Signs Temp Pulse Resp BP Pulse Ox O2 Del Method 04/16/23 07:38 36.5 C 69 18 152/84 H 95 Room Air Laboratory Results CBC and chemistry reviewed PG Care Time/CCT Total # of Minutes Spent Total Time Spent with Patient: Total time spent is greater than 50% in coordination of care (as documented) at patient's floor/unit and/or counseling patient: Coding Level of Care Code 64851 SUB INP/OBS CARE 3/50MIN Diagnoses Post-op pain G89.18 Abdominal pain R10.9 Abdominal location: unspecified location COPD (chronic obstructive pulmonary disease) J44.9 Kidney lesion N28.9 Hyperlipidemia E78.5 Hypothyroidism E03.9 Hypertension I10 Fibromyalgia M79.7 Depression with anxiety F41.8 Vaginal discharge N89.8 (2) Abdominal pain Abdominal location: unspecified location Qualified Code(s): R10.9 - Unspecified abdominal pain
[2023-04-16] MEDS: ENOXAPARIN INJ 40 MG/0.4 ML SYR SQ SCH (10:57)
[2023-04-16] MEDS: COLESTIPOL HCL 1 GM TAB PO SCH (10:58)
[2023-04-16] MEDS: oxyBUTYnin chloride 5 MG TAB PO PRN (14:33)
[2023-04-16] MEDS: DICYCLOMINE HCL 10 MG CAP PO SCH ×2 (17:37→20:14)
[2023-04-16] MEDS: PROPRANOLOL HCL 60 MG LA CAP PO SCH (20:12)
[2023-04-16] MEDS: busPIRone 5 MG TAB PO SCH (20:14)
[2023-04-16] MEDS: ATORVASTATIN 20 MG TAB PO SCH (20:14)
[2023-04-17] MEDS: ONDANSETRON INJ 2 MG/ML 2 ML VIAL IV PRN ×4 (05:31→23:25)
[2023-04-17] MEDS: HYDROmorphone INJ 1 MG/ML SYRINGE IV PRN (05:34)
[2023-04-17] MEDS: LEVOTHYROXINE SODIUM 88 MCG TABLET PO SCH (05:34)
[2023-04-17 06:27] LABS: Potassium 3.4 mmol/L (3.5-5.1)
[2023-04-17 06:28] LABS: Calcium 8.5 mg/dl (8.6-10.3); Est GFR (African American) 100.9 ml/min; Hematocrit (blood only) 35.1 % (37.0-47.0); Hemoglobin 10.9 g/dl (12.0-16.0); Mean Corpuscular Hemoglobin 27.3 pg (25.0-34.0); Mean Corpuscular Hgb Conc 31.1 g/dL (32.0-36.0); Mean Corpuscular Volume 87.8 fL (80.0-100.0); Mean Platelet Volume 9.5 fL (9.4-12.4); Platelet Count 224 K/uL (130-400); RDW Coefficient of Variation 13.8 % (11.5-14.5); RDW Standard Deviation 44.1 fL (36.4-46.3)
[2023-04-17] MEDS ORDERED: POTASSIUM CHLORIDE CRTAB 20 MEQ TABCR PO STA (07:58)
[2023-04-17] MEDS: buPROPion SR 150 MG TABCR PO SCH ×2 (08:06→20:28)
[2023-04-17] MEDS: SUCRALFATE 1 GM/10 ML UDC PO SCH ×4 (08:06→20:25)
[2023-04-17] MEDS: PANTOprazole 40 MG in SYRINGE 0 ML IV SCH ×2 (08:06→22:13)
[2023-04-17] MEDS: busPIRone 5 MG TAB PO SCH ×3 (08:06→20:28)
[2023-04-17] MEDS: AZELASTINE HCL 0.1% NASAL 200 SPRAYS/27,400 MCG BTL SCH ×2 (08:07→20:26)
[2023-04-17] MEDS: CETIRIZINE HCL 10 MG TABLET PO SCH (08:07)
[2023-04-17] MEDS: DICYCLOMINE HCL 10 MG CAP PO SCH ×4 (08:07→20:28)
[2023-04-17] MEDS: GABAPENTIN 100 MG CAP PO SCH ×2 (08:07→20:29)
[2023-04-17] MEDS: FLUTICASONE/VILANTEROL 100/25MCG 14 PUFFS/INHALER INH SCH (08:07)
[2023-04-17] MEDS: ENOXAPARIN INJ 40 MG/0.4 ML SYR SQ SCH (08:08)
[2023-04-17] MEDS: FLUTICASONE PROPIONATE NA SPR 16 GM BTL SCH (08:08)
[2023-04-17 09:17] LABS: Magnesium 1.8 mg/dl (1.7-2.4)
[2023-04-17] MEDS: COLESTIPOL HCL 1 GM TAB PO SCH (09:44)
--- NOTE | 2023-04-17 12:06 | Hospitalist Progress Note ---
Date of Service April 17, 2023 Assessment & Plan (1) Post-op pain: Plan: 62 yo female with PMHx of COPD, HLD, depression, anxiety, fibromyalgia, HTN, hypothyroidism, and GERD presents with abdominal pain. -S/p L Ureteral stent placement 04/[address] Park presenting with diffuse abdominal pain and nausea. Labs reassuring, no leukocytosis, Hgb wnl. UA with +LE and +WBC but without bacteria. -CT A/P: No hydronephrosis of either kidney. Cholecystectomy. There is mild biliary dilation, however, LFTs normal. -on prophylactic doxycycline since procedure and given Rocephin x1 in the ED. Will defer further abx to urology. - recommend continue 7 day course of doxycycline, decision to stop today as potentially contributing to GI upset. - UC - no growth, less than 1000 colonies -Urology consulted - Suspect pain is not stent related as more on Right side - No inpatient intervention planned, stent will be removed outpatient - Continue Tamsulosin (pt refusing, causes her sinus problems), Pyridium and Oxybutynin, consider Ketorolac for stent management (2) Abdominal pain: Plan: 1/: abdominal pain has become more concentrated to RUQ with some lower abdominal cramping -LFTs increased, but now WNL -MRCP without obstruction, CBD dilation but no stones, prominent pancreatic duct -GI consulted, appreciate recs - no inpatient intervention, recommend EUS outpatient - Consider carafate 1g ACHS (ordered) -Continue home Colestipol -Phenergran q6 -Protonix BID -Schedule bentyl QID -tylenol for pain control -PRN zofran -lidocaine patch for low back pain 1/5 hypokalemia, 3.4 replaced orally, recheck AM Chronic with no indication for antibiotics as patient continues to request, as no evidence of bacterial infections, especially H.pylori. Patient symptoms improved with scheduled benzo last admission but d/c by PCP on discharge. Suspect underlying psych component. - Recommended Cymbalta but patient very hesitant to take new medications - Agreeable to psych consult (3) COPD (chronic obstructive pulmonary disease): Plan: -Patient on symbicort at home, refusing Breo as it makes her swell up -PRN nebs (4) Kidney lesion: Plan: - again seen on CTA/P, no change in size - continue outpatient urology follow up (5) Hyperlipidemia: Plan: - Continue Lipitor (6) Hypothyroidism: Plan: Continue home Synthroid TSH 02/2023: 2.4 (7) Hypertension: Plan: Continue Propranolol (8) Fibromyalgia: Plan: Continue Gabapenin (9) Depression with anxiety: Plan: - Continue Wellbutrin - Schedule buspar TID (10) Vaginal discharge: Plan: with burning - was given Diflucan 1/, now concerned she has BV - BV panel: +yeast, - trich, BV could not be ran Plan DVT ppx: lovenox (of note patient refusing), encourage ambulation Dispo: continued inpatient stay Admission and Anticipated Discharge Date Admission Date: April 16, 2023 Supervising Physician Co-Signing Physician Notes PA Supervision Note: I did not personally see or examine the patient today, but I verified all robbins points of JOSE Sprague's assessment and plan with the following exceptions/additions: None Subjective patient seen sitting at the side of the bed, at bedside. Patient continues to have abdominal pain, maybe slightly improved from yesterday. very frustrated with not being able to find answers and continues to revert back to history of taking antibiotics many years ago. States that her nausea is worse after waking up, she sleeps sitting up and does have the increase in nausea even if she just naps. Is able to tolerate some food at meals. Has not vomited. Continues to have vaginal itching - pt aware BV panel pending. Review of Systems Review of Systems: All systems reviewed & are unremarkable except as noted in Subjective Physical Exam Physical Exam: General: patient sitting on side of the bed, tearful at times with frustration HEENT: mild nasal congestion Resp: normal respiratory effort, lungs clear to auscultation. No cough CV: RRR, no murmur, Abd: normal bowel sounds, mild tenderness epigastric and LUQ area. improved from yesterday. no guarding or rebounding Extremities: Moves all extremities, trace edema bilateral extremities Neuro: A&O x3, Results & Data Results & Data Vital Signs (Past 12 Hours) Vital Signs Temp Pulse Resp BP Pulse Ox O2 Del Method 04/17/23 08:07 36.8 C 56 L 16 128/75 95 Room Air Laboratory Results CBC, chemistry and mag reviewed PG Care Time/CCT Total # of Minutes Spent Total Time Spent with Patient: Total time spent is greater than 50% in coordination of care (as documented) at patient's floor/unit and/or counseling patient: Coding Level of Care Code 98584 SUB INP/OBS CARE 2/35MIN Diagnoses Post-op pain G89.18 Abdominal pain R10.9 Abdominal location: unspecified location COPD (chronic obstructive pulmonary disease) J44.9 Kidney lesion N28.9 Hyperlipidemia E78.5 Hypothyroidism E03.9 Hypertension I10 Fibromyalgia M79.7 Depression with anxiety F41.8 Vaginal discharge N89.8 (2) Abdominal pain Abdominal location: unspecified location Qualified Code(s): R10.9 - Unspecified abdominal pain
[2023-04-17] MEDS: ACETAMINOPHEN 500 MG TAB PO PRN (13:18)
[2023-04-17 14:36] LABS: Candida glabrata RNA Negative (Negative); Candida species group RNA POSITIVE (Negative); Trichomonas vaginalis RNA Negative (Negative)
[2023-04-17] MEDS ORDERED: oxyCODONE HCL IR 5 MG TAB (IMMEDIATE RELEASE) PO ONE (15:32)
[2023-04-17] MEDS ORDERED: HYDROmorphone HCL 2 MG TAB PO STA ×2 (19:19→22:12)
--- NOTE | 2023-04-17 19:44 | Communication Note ---
Date of Service: April 17, 2023 Asked to see patient due to concern that she may have a bit more of an esoteric GI diagnosis. Chart reviewed, HPI reviewed with patientpredominantly epi gastric and right upper abdominal pain very intense. Some burping, lots of bloating after eating. No real improvement after bowel movements, a lot of nausea no vomiting. Metallic taste in her mouth. Vitals noted. In general she ranges from no distressed appearing fairly uncomfortable and if she is laying somewhat back. Breathing is unlabored no accessory muscle use good effort. Abdomen is soft mildly distended epigastric and right upper quadrant far more tender than leftit is a little bit difficult due to her severity of tenderness but I do feel at least several discrete areas consistent with myofascial trigger points and when I push on the areas that feel more firm and trigger point like to me, the patient herself notes they are much more tender. Chronic abdominal pain I suspect there is probably 2 componentsa larger component of functional dyspepsia, as well as a smaller but significant component of somatic visceral pain from abdominal wall trigger points - functional dyspepsiawe have discussed this extensively, discussed our poor understanding of the pathophysiology, but how her symptoms fit a lot with it. Discussed how much this is a mind-body diagnosis, recommended GI psychology if it can be set up. Discussed med management as well as working to live with the symptoms. Discussed that med management can be helpful but rarely is definitively so. In discussion of options, we discussed that it is quite likely her response to antibiotics in the past has not been from a recurrent or smoldering H. pylori infection (see below)but rather because a lot of ant ibiotics act as a prokinetic, and while functional dyspepsia is more of a sensory neuropathy, there is often a bit of a motor component. Because of her reliable response to antibioticswill start erythromycin. Discussed also benefit from scheduling BuSpar (her primary in the hospital has done this), cyproheptadine (for now we will defer to titrating as an outpatient) supplements such as FDgard (which seems to be fairly helpful as an adjunct), and Mylantawhich we will start here in the hospital. Ideally she would be able to be set up with GI psychology or at least pain psychology, [facility]" (psychology clinic on [facility]) has biofeedback which can be quite helpful, and definitely would recommend trying to live as much of a normal life that she can in spite of her symptomsas of this seems to be helpful with functional dyspepsia as well. - Abdominal wall trigger pointswhile the seem to be a smaller contributor, and are likely generated from a viscerosomatic reflex in response to her chronic functional dyspepsia, she does seem to suffer also from abdominal wall trigger pointsdiscussed management, discussed pathophysiology and nerve feedback loops. For now we will initiate Voltaren gel, offered trigger point injectionsearlemann is consideringdefinitely recommended pain management evaluation for trigger point injections, and I suspect her PCP would be adept at doing this as well. Will follow-up tomorrow in the room from about 6:30 PM to 7:30 PM. Spent about 15 minutes (probably more) in chart review prior to seeing the patient, and spent a good 15 minutes or so with documentation and court recorder after seeing her.
[2023-04-17] MEDS ORDERED: ERYTHROMYCIN 500 MG in SODIUM CHLORIDE 0.9% 250 ML IV ONE (20:00)
[2023-04-17] MEDS: ATORVASTATIN 20 MG TAB PO SCH (20:27)
[2023-04-17] MEDS: ALUMINUM/MAGNESIUM/SIMETH (MAALOX MAX) 30 ML UDC PO SCH (20:39)
[2023-04-17] MEDS: PROPRANOLOL HCL 60 MG LA CAP PO SCH (20:41)
[2023-04-17] MEDS: DICLOFENAC SOD 1% GEL 100 GM TUBE EXT SCH (20:45)
[2023-04-18] MEDS: ACETAMINOPHEN 500 MG TAB PO PRN ×2 (02:51→11:50)
[2023-04-18] MEDS: PROMETHAZINE HCL 6.25 MG in SODIUM CHLORIDE 0.9% 50 ML IV PRN (02:51)
[2023-04-18] MEDS: oxyBUTYnin chloride 5 MG TAB PO PRN ×2 (03:06→16:43)
[2023-04-18] MEDS: LEVOTHYROXINE SODIUM 88 MCG TABLET PO SCH (05:16)
[2023-04-18 06:38] LABS: Hematocrit (blood only) 33.4 % (37.0-47.0); Hemoglobin 10.4 g/dl (12.0-16.0); Mean Corpuscular Hemoglobin 27.4 pg (25.0-34.0); Mean Corpuscular Hgb Conc 31.1 g/dL (32.0-36.0); Mean Corpuscular Volume 88.1 fL (80.0-100.0); Mean Platelet Volume 9.5 fL (9.4-12.4); Platelet Count 204 K/uL (130-400); RDW Coefficient of Variation 13.7 % (11.5-14.5); RDW Standard Deviation 43.8 fL (36.4-46.3); Red Blood Count 3.79 M/uL (4.20-5.40); White Blood Count 5.48 K/ul (4.8-10.8)
[2023-04-18 06:58] LABS: Albumin Globulin Ratio 1.1 (0.9-2); Albumin Level 3.2 gm/dl (3.4-5.0); BUN Creatinine Ratio 9.2 (10-20); Bilirubin,Total 0.5 mg/dl (0.2-1.0); Calcium 8.5 mg/dl (8.6-10.3); Creatinine Clr Calc Pharmacy 75.8 ml/min; Est GFR (African American) 96.1 ml/min; Est GFR (Non-African American) 82.9 ml/min; Globulin 2.8 gm/dl (2.5-4.0); Magnesium 1.8 mg/dl (1.7-2.4); Potassium 3.4 mmol/L (3.5-5.1)
[2023-04-18] MEDS ORDERED: ERYTHROMYCIN ETHYLSUCC SUSP 200 MG/5 ML 100 ML BTL PO SCH (07:30)
[2023-04-18] MEDS: ENOXAPARIN INJ 40 MG/0.4 ML SYR SQ SCH (07:51)
[2023-04-18] MEDS: SUCRALFATE 1 GM/10 ML UDC PO SCH ×4 (08:20→20:02)
[2023-04-18] MEDS: ERYTHROMYCIN ETHYLSUCC SUSP 200 MG/5 ML 100 ML BTL PO SCH ×3 (08:20→16:44)
[2023-04-18] MEDS: ALUMINUM/MAGNESIUM/SIMETH (MAALOX MAX) 30 ML UDC PO SCH ×4 (08:20→20:03)
[2023-04-18] MEDS: PANTOprazole 40 MG in SYRINGE 0 ML IV SCH ×2 (08:22→20:11)
[2023-04-18] MEDS: FLUTICASONE/VILANTEROL 100/25MCG 14 PUFFS/INHALER INH SCH (08:22)
[2023-04-18] MEDS: FLUTICASONE PROPIONATE NA SPR 16 GM BTL SCH (08:22)
[2023-04-18] MEDS: DICLOFENAC SOD 1% GEL 100 GM TUBE EXT SCH ×4 (08:22→20:12)
[2023-04-18] MEDS: AZELASTINE HCL 0.1% NASAL 200 SPRAYS/27,400 MCG BTL SCH ×2 (08:22→20:03)
[2023-04-18] MEDS: DICYCLOMINE HCL 10 MG CAP PO SCH ×4 (08:24→20:09)
[2023-04-18] MEDS: GABAPENTIN 100 MG CAP PO SCH ×2 (08:24→20:09)
[2023-04-18] MEDS: busPIRone 5 MG TAB PO SCH ×3 (08:24→20:09)
[2023-04-18] MEDS: CETIRIZINE HCL 10 MG TABLET PO SCH (08:24)
[2023-04-18] MEDS: buPROPion SR 150 MG TABCR PO SCH ×2 (08:24→20:09)
[2023-04-18] MEDS ORDERED: POTASSIUM CHLORIDE CRTAB 20 MEQ TABCR PO STA (08:25)
[2023-04-18] MEDS: ONDANSETRON INJ 2 MG/ML 2 ML VIAL IV PRN (09:43)
[2023-04-18] MEDS: COLESTIPOL HCL 1 GM TAB PO SCH (09:43)
[2023-04-18] MEDS ORDERED: FLUCONAZOLE 50 MG TAB PO ONE (10:33)
--- NOTE | 2023-04-18 11:14 | XRay Report ---
XR chest 1V portable CLINICAL HISTORY: heart feels "different", beating in her back COMPARISON STUDY: Chest radiograph March 25, 2023. Chest CT September 15, 2018. FINDINGS: Lung volumes are normal. Lungs are clear. There is no pneumothorax or pleural effusion. Car diac size is normal. Mediastinal contours are normal. There is no evidence for pulmonary edema. IMPRESSION: No acute cardiopulmonary findings. ACT 112: Negative or not required by law. Electronically signed by: Americo Joya M.D. 04/18/2023 11:13 AM
[2023-04-18 12:17] LABS: Bacterial Vaginosis RNA Negative (Negative)
[2023-04-18] MEDS: CHOLECALCIFEROL 1,000 UNITS 25 MCG TAB PO SCH (13:19)
[2023-04-18] MEDS: hydroCHLOROthiazide 25 MG TAB PO SCH (13:19)
[2023-04-18] MEDS ORDERED: LIDOCAINE 2% 2 ML VIAL/AMP(20MG/ML) INFIL ONE (13:41)
--- NOTE | 2023-04-18 15:53 | Hospitalist Progress Note ---
Date of Service April 18, 2023 Assessment & Plan (1) Post-op pain: Plan: 62 yo female with PMHx of COPD, HLD, depression, anxiety, fibromyalgia, HTN, hypothyroidism, and GERD presents with abdominal pain. -S/p L Ureteral stent placement 04/[address] Park presenting with diffuse abdominal pain and nausea. Labs reassuring, no leukocytosis, Hgb wnl. UA with +LE and +WBC but without bacteria. -CT A/P: No hydronephrosis of either kidney. Cholecystectomy. There is mild biliary dilation, however, LFTs normal. -on prophylactic doxycycline since procedure and given Rocephin x1 in the ED. Will defer further abx to urology. - recommend continue 7 day course of doxycycline, decision to stop today as potentially contributing to GI upset. - UC - no growth, less than 1000 colonies - Diflucan second dose given 04/18 for symptomatic yeast infection -Urology consulted - Suspect pain is not stent related as more on Right side - No inpatient intervention planned, stent will be removed outpatient - Continue Tamsulosin (pt refusing, causes her sinus problems), Pyridium and Oxybutynin, consider Ketorolac for stent management (2) Abdominal pain: Plan: 04/14: abdominal pain has become more concentrated to RUQ with some lower abdominal cramping -LFTs increased, but now WNL -MRCP without obstruction, CBD dilation but no stones, prominent pancreatic duct -GI consulted, appreciate recs - no inpatient intervention, recommend EUS outpatient - Consider carafate 1g ACHS (ordered) -Continue home Colestipol -Phenergran q6 -Protonix BID -Schedule bentyl QID -tylenol for pain control -PRN zofran -lidocaine patch for low back pain 04/18 hypokalemia, 3.4 replaced orally, recheck AM. Patient states she takes potassium supplementation daily that she has not been getting, restarted. Chronic with no indication for antibiotics as patient continues to request, as no evidence of bacterial infections, especially H.pylori. Patient symptoms improved with scheduled benzo last admission but d/c by PCP on discharge. Suspect underlying psych component. - Recommended Cymbalta but patient very hesitant to take new medications - Agreeable to psych consult Seen by Dr. 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 - Start erythromycin and Mylanta - Continue buspar - Consider cyproheptadine outpatient - Established with GI/Pain psychology ([facility] on [address]) - Recommend trigger point injections (3) COPD (chronic obstructive pulmonary disease): Plan: -Patient on symbicort at home, refusing Breo as it makes her swell up -PRN nebs (4) Kidney lesion: Plan: - again seen on CTA/P, no change in size - continue outpatient urology follow up (5) Hyperlipidemia: Plan: - Continue Lipitor (6) Hypothyroidism: Plan: Continue home Synthroid TSH 02/2023: 2.4 (7) Hypertension: Plan: Continue Propranolol (8) Fibromyalgia: Plan: Continue Gabapenin (9) Depression with anxiety: Plan: - Continue Wellbutrin - Schedule buspar TID (10) Vaginal discharge: Plan: with burning - was given Diflucan 1/3, second dose 04/18 - BV panel: +yeast, - trich, BV could not be ran Plan DVT ppx: lovenox (of note patient refusing but wearing personal compression socks), encourage ambulation Dispo: continued inpatient stay Admission and Anticipated Discharge Date Admission Date: April 16, 2023 Supervising Physician Co-Signing Physician Notes PA Supervision Note: I did not personally see or examine the patient today, but I verified all robbins points of JOSE Sprague's assessment and plan with the following exceptions/additions: None Subjective Patient seen this morning sitting at the side of the bed. Pain seems to be slightly improved but she is still concerned about pain control going home. Has been able to eat more but nauseous after eating. Reiterated to patient that we are not going to be able to make her pain go away 100%. She seems to be agreeable to trigger point injections. Review of Systems Review of Systems: All systems reviewed & are unremarkable except as noted in Subjective Physical Exam Physical Exam: General: patient sitting on side of the bed HEENT: mild nasal congestion Resp: normal respiratory effort, lungs clear to auscultation. No cough CV: RRR, no murmur, Abd: normal bowel sounds, mild tenderness epigastric. improved from yesterday. no guarding or rebounding Extremities: Moves all extremities, trace edema bilateral extremities, compression stockings in place Neuro: A&O x3, Results & Data Results & Data Vital Signs (Past 12 Hours) Vital Signs Temp Pulse Resp BP Pulse Ox O2 Del Method 04/18/23 15:45 36.5 C 52 L 16 137/75 99 Room Air 04/18/23 08:37 36.6 C 74 16 157/82 H 96 Room Air Laboratory Results CBC and chemsitry reviewed PG Care Time/CCT Total # of Minutes Spent Total Time Spent with Patient: Total time spent is greater than 50% in coordination of care (as documented) at patient's floor/unit and/or counseling patient: Coding Level of Care Code 07159 SUB INP/OBS CARE 2/35MIN Diagnoses Post-op pain G89.18 Abdominal pain R10.9 Abdominal location: unspecified location COPD (chronic obstructive pulmonary disease) J44.9 Kidney lesion N28.9 Hyperlipidemia E78.5 Hypothyroidism E03.9 Hypertension I10 Fibromyalgia M79.7 Depression with anxiety F41.8 Vaginal discharge N89.8 (2) Abdominal pain Abdominal location: unspecified location Qualified Code(s): R10.9 - Unspecified abdominal pain
[2023-04-18] MEDS ORDERED: LORazepam 0.5 MG TAB PO ONE (17:15)
[2023-04-18] MEDS ORDERED: oxyCODONE HCL IR 5 MG TAB (IMMEDIATE RELEASE) PO ONE (17:16)
--- NOTE | 2023-04-18 17:39 | Communication Note ---
Date of Service: April 18, 2023 seen in follow-upfeeling worse/more or less the same. Reiterated discussion of working diagnoses being functional dyspepsia and abdominal wall trigger points, and discussed that the plan will be multifaceted with unfortunately a very long roadmap. After discussion she would like to proceed with abdominal wall trigger point injections today. Informed consent, risk/benefits discussed. Area cleansed with alcohol and then Betadine. Epigastric and right upper quadrant as well as 1 supraumbilical trigger point discretely palpated, patient noted excess tenderness in these areas, and area was needled followed by injection of a total of 6 cc of lidocaine across the 4 trigger points. Hemostasis spontaneous, patient tolerated well.
[2023-04-18] MEDS: PROPRANOLOL HCL 60 MG LA CAP PO SCH (20:09)
[2023-04-18] MEDS: ATORVASTATIN 20 MG TAB PO SCH (20:09)
[2023-04-19] MEDS: LEVOTHYROXINE SODIUM 88 MCG TABLET PO SCH (04:46)
[2023-04-19] MEDS: ONDANSETRON INJ 2 MG/ML 2 ML VIAL IV PRN (05:01)
[2023-04-19] MEDS: FLUTICASONE/VILANTEROL 100/25MCG 14 PUFFS/INHALER INH SCH (07:41)
[2023-04-19] MEDS: ENOXAPARIN INJ 40 MG/0.4 ML SYR SQ SCH (07:41)
[2023-04-19] MEDS: SUCRALFATE 1 GM/10 ML UDC PO SCH ×2 (07:58→13:01)
[2023-04-19] MEDS: ALUMINUM/MAGNESIUM/SIMETH (MAALOX MAX) 30 ML UDC PO SCH ×2 (07:58→13:00)
[2023-04-19] MEDS: ERYTHROMYCIN ETHYLSUCC SUSP 200 MG/5 ML 100 ML BTL PO SCH ×2 (07:59→13:00)
[2023-04-19] MEDS: AZELASTINE HCL 0.1% NASAL 200 SPRAYS/27,400 MCG BTL SCH (07:59)
[2023-04-19] MEDS: PANTOprazole 40 MG in SYRINGE 0 ML IV SCH (07:59)
[2023-04-19] MEDS: FLUTICASONE PROPIONATE NA SPR 16 GM BTL SCH (07:59)
[2023-04-19] MEDS: buPROPion SR 150 MG TABCR PO SCH (07:59)
[2023-04-19] MEDS: GABAPENTIN 100 MG CAP PO SCH (07:59)
[2023-04-19] MEDS: busPIRone 5 MG TAB PO SCH ×2 (07:59→13:00)
[2023-04-19] MEDS: DICYCLOMINE HCL 10 MG CAP PO SCH ×2 (07:59→13:00)
[2023-04-19] MEDS: hydroCHLOROthiazide 25 MG TAB PO SCH (07:59)
[2023-04-19] MEDS: CHOLECALCIFEROL 1,000 UNITS 25 MCG TAB PO SCH (07:59)
[2023-04-19] MEDS: CETIRIZINE HCL 10 MG TABLET PO SCH (08:00)
[2023-04-19] MEDS: DICLOFENAC SOD 1% GEL 100 GM TUBE EXT SCH ×2 (08:00→12:56)
[2023-04-19] MEDS ORDERED: POTASSIUM CHLORIDE 10 MEQ TABCR PO SCH (09:00)
[2023-04-19] MEDS: COLESTIPOL HCL 1 GM TAB PO SCH (09:40)
--- NOTE | 2023-04-19 12:38 | Discharge Summary ---
Discharge Summary Date of Service April 19, 2023 Notes For Next Care Provider Patient with flare of chronic abdominal pain, likely from doxycycline, very unlikely related to her stent. Stent is scheduled to be removed next week. Multiple long discussions with patient during her hospital stay regarding the chronic nature of her pain and the best course of management. She seems to have an initial grasp on the mind-body concept and responded well to trigger point injections. There are detailed instructions for her in the discharge summary regarding on how to best manage her pain. She did have a dilated pancreatic duct on MRCP that will require follow-up outpatient with [facility]. Long-term management of her pain will likely require slow titration off of medications. However during her stay she seemed to be less adamant about the need for Flagyl to treat her H. pylori. Again no evidence of active H. pylori infection Medication Changes From Visit scheduled BuSpar 3 times daily Scheduled Bentyl 4 times daily Maalox ACHS Voltaren gel 4 times daily Erythromycin AC Zofran and Promethazine as needed for nausea Lorazepam as needed for anxiety Admission HPI Per Admitting Provider 62 yo female with PMHx of COPD, HLD, depression, anxiety, fibromyalgia, HTN, hypothyroidism, and GERD presents with abdominal pain. Patient is 2 days postop left ureteral stent placement for kidney stone. About 24 hours following surgery she started experiencing diffuse abdominal pain with associated nausea. She also has had a mild cough but believes this is due to sinus drainage. Otherwise denies fever, chills, fatigue, headache, chest pain, shortness of breath, vomiting, hematuria, dysuria. She has had a bowel movement since surgery. She has also been able to tolerate food at home. She is currently on doxycycline postop but has tolerated this medication in the past. She does report feeling a little bit better after medications recieved in the ED. Principal Dx & Hospital Course #1 = Principal Diagnosis (1) Post-op pain: 62 yo female with PMHx of COPD, HLD, depression, anxiety, fibromyalgia, HTN, hypothyroidism, and GERD presents with abdominal pain. -S/p L Ureteral stent placement 04/[address] Park presenting with diffuse abdominal pain and nausea. Labs reassuring, no leukocytosis, Hgb wnl. UA with +LE and +WBC but without bacteria. -CT A/P: No hydronephrosis of either kidney. Cholecystectomy. There is mild biliary dilation, however, LFTs normal. -on prophylactic doxycycline since procedure and given Rocephin x1 in the ED. Stopped doxycycline as potentially contributing to GI upset. - UCx - no growth, less than 1000 colonies - Diflucan second dose given 04/18 for symptomatic yeast infection -Urology consulted - Suspect pain is not stent related as more on Right side - No inpatient intervention planned, stent will be removed outpatient - Continue Tamsulosin (pt refusing, causes her sinus problems), Pyridium and Oxybutynin (2) Abdominal pain: abdominal pain has become more concentrated to RUQ with some lower abdominal cramping -LFTs increased, but now WNL -MRCP without obstruction, CBD dilation but no stones, prominent pancreatic duct -GI consulted, appreciate recs - no inpatient intervention, recommend EUS outpatient - continue carafate 1g ACHS -Continue home Colestipol -Phenergran prn q6 -Protonix BID -Schedule bentyl QID -tylenol for pain control -PRN zofran Chronic with no indication for antibiotics as patient continues to request, as no evidence of bacterial infections, especially H.pylori. Patient symptoms improved with scheduled benzo last admission but d/c by PCP on discharge. Suspect underlying psych component. - Recommended Cymbalta but patient very hesitant to take new medications. this was not started during admission, but still feel as it would be benefit for her - Agreeable to psych consult initially, spoke with the psychiatric nurse liaison, but then refused to see the psychiatrist Seen by Dr. 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 - Started erythromycin and Mylanta - Continue buspar - Consider cyproheptadine outpatient - Established with GI/Pain psychology ([facility] [employer]) - trigger point injection x 4 performed 04/18/2023 -Patient had significant improvement in her abdominal pain and was stable for discharge to home (3) COPD (chronic obstructive pulmonary disease): continue home inhalers (4) Kidney lesion: seen on CT abdomen and pelvis, continue outpatient urology follow-up (5) Depression: continue Wellbutrin BuSpar scheduled 3 times daily Lorazepam as needed Plan discharged to home Discharge Exam General: patient sitting up to the chair, appears much better today HEENT: mild nasal congestion Resp: normal respiratory effort, lungs clear to auscultation. No cough CV: RRR, no murmur, Abd: normal bowel sounds, mild tenderness epigastric. improved from yesterday. no guarding or rebounding Updated Medication List Medication Instructions Recorded Confirmed Type vitamin E 268 mg (400 unit) capsule 400 unit PO QAM 09/06/18 04/13/23 History inhalational spacing device #1 ea 09/22/18 04/02/23 Rx (Vortex Holding Chamber) azelastine 205.5 mcg (0.15 %) 2 spray intranasal BID 04/12/19 04/13/23 History nasal spray ascorbate calcium (vitamin C) 500 1,000 mg PO QAM PRN NEEDED PER 08/06/20 04/13/23 History mg tablet PT. multivitamin (Daily Multi-Vitamin 1 tab PO QAM 08/06/20 04/13/23 History tablet) albuterol sulfate 90 mcg/actuation 2 puff inhalation Q4H PRN 05/19/22 04/13/23 Rx aerosol inhaler (Ventolin HFA) Shortness Of Breath Or Wheezing #18 grams budesonide-formoterol HFA 80 2 inh inhalation BID 06/24/22 04/13/23 History mcg-4.5 mcg/actuation aerosol inhaler (Symbicort) bupropion HCl 150 mg tablet,12 hr 150 mg PO BID #180 ea 07/11/22 04/13/23 Rx sustained-release fluticasone propionate 50 1 spray intranasal DAILY 30 days 07/22/22 04/13/23 Rx mcg/actuation nasal #48 grams spray,suspension atorvastatin 20 mg tablet 20 mg PO HS #90 tabs 11/13/22 04/13/23 Rx hydrochlorothiazide 25 mg tablet 25 mg PO QAM 12/11/22 04/13/23 History estradiol 0.01% (0.1 mg/gram) 0.25 appful vaginal DAILY #42.5 02/12/23 04/13/23 Rx vaginal cream grams levocetirizine 5 mg tablet 5 mg PO QAM 02/13/23 04/13/23 History levothyroxine 88 mcg tablet 88 mcg PO QAM 02/13/23 04/13/23 History potassium chloride 20 mEq 30 meq PO QAM 02/13/23 04/13/23 History tablet,extended release(part/cryst) (Klor-Con M) propranolol 60 mg capsule,24 60 mg PO HS 02/13/23 04/13/23 History hr,extended release mupirocin 2 % topical ointment 1 applic topical BID PRN Skin 03/21/23 04/13/23 History Irritation colestipol 1 gram tablet (Colestid) 1 g PO DAILY@1000 #30 tabs 03/29/23 04/13/23 Rx oxycodone-acetaminophen 7.5 mg-325 1 tab PO Q8H PRN pain #7 tabs 04/09/23 04/13/23 Rx mg tablet (Percocet) pantoprazole 40 mg tablet,delayed 40 mg PO BID 04/09/23 04/13/23 History release (Protonix) acetaminophen 500 mg tablet 1,000 mg (2 x 500 mg) PO Q8H PRN 04/19/23 Rx (Tylenol Extra Strength) pain 30 days #30 tabs aluminum-mag hydroxide-simethicone 10 ml PO ACHS 30 days #300 mL 04/19/23 Rx 400 mg-400 mg-40 mg/5 mL oral susp (Mag-Al Plus Extra Strength) buspirone 5 mg tablet 5 mg PO TID 30 days #90 tabs 04/19/23 Rx cholecalciferol (vitamin D3) 25 1,000 unit PO QAM #30 caps 04/19/23 Rx mcg (1,000 unit) capsule diclofenac sodium 1 % topical gel 2 g EXT QID 30 days #100 grams 04/19/23 Rx (Voltaren Arthritis Pain) dicyclomine 10 mg capsule 10 mg PO QID 30 days #120 caps 04/19/23 Rx erythromycin ethylsuccinate 200 200 mg (5 mL) PO AC 30 days #450 mL 04/19/23 Rx mg/5 mL oral powder for suspension (E.E.S. Granules) gabapentin 100 mg capsule 100 mg PO BID #30 caps 04/19/23 Rx lorazepam 0.5 mg tablet 0.5 mg PO TID PRN anxiety #14 tabs 04/19/23 Rx ondansetron HCl 4 mg tablet 4 mg PO TID PRN NAUSEA/VOMITING 10 04/19/23 Rx days #30 tabs promethazine 12.5 mg tablet 12.5 mg PO Q6H PRN nausea #30 tabs 04/19/23 Rx sucralfate 100 mg/mL oral 1 g (10 mL) PO QID 30 days #1,200 04/19/23 Rx suspension mL Hospital Stay Data Consultations 04/14/23 00:47 ED Decision to Admit Stat 04/14/23 01:45 Consult Urology Routine 04/14/23 15:13 Consult Gastroenterology Routine 04/17/23 16:56 Consult Behavioral Health Liaison Routine Diagnostic Imagining Performed 04/13/23 21:09 CT Abd and Pelvis [CT abd pelvis IV con only] Stat 04/14/23 08:33 MR MRCP Urgent Discharge Instructions Given to Patient (Per Discharging Provider) Ms. Everett, You were hospitalized after having severe pain after having a stent placed in your left ureter for kidney stones. During admission it was determined that your pain was more related to your chronic GI issues rather than the stent placed. It is likely that the doxycycline antibiotic that you were given caused the flare of your pain. This medication was discontinued during your stay, we checked your urine and there was no infection for you to need antibiotics. You were also treated for a vaginal yeast infection during your stay. During your stay, we came up with a regimen to control your chronic abdominal pain. As discussed at length, there is a mind body component to your pain, and pain will be best controlled when you are mentally well. It is important to continue to take the medications but also work with the psychiatrist that Dr. Cuellar recommends. Given the chronic nature of your pain, it is unlikely that it will ever go away completely, but will continue to work to make it manageable for your daily activities. It is important that you continue to eat to provide nourishment to your body. I printed out an updated list of your daily medications including what you can take as needed for pain, nausea or anxiety. Please keep your appointment with [facility]. It was our pleasure taking care of you, Clarita Sprague PA-C Functional dyspepsia - an awful lot of your gastrointestinal symptoms fit extremely well with a diagnosis called functional dyspepsia. When you look up the diagnosis at home, you will see that you match extremely well for the diagnostic criteriaspecifically for the variant called "postprandial distress syndrome"but also with some of the variant called "epigastric pain syndrome" - unfortunately we do not have a great idea of the actual cause of functional dyspepsia. The way I look at it is what would be essentially a "sensory neuropathy" of the upper GI tract. (People have more experience with a "motor neuropathy" of the upper GI tract with a diagnosis called gastroparesiswhere the GI tract moves more slowly, this is a problem with the motor nerves that control movement in our gut; sensory symptoms like functional dyspepsia essentially would be the same problem, but affecting the nerves that cause sensation rather than movement) - sometimes there is may be, questionably, a loose correlation between an H. pylori infection (or really any other intestinal infectioneven stomach viruses) and the onset of functional dyspepsiawhich might explain the correlation that you recall, especially given that there has not been any evidence of a lingering H. pylori infection (and especially since that is something that we really do not see very often, and it is even controversial in medical literature if there is any correlation between H. pylori and functional dyspepsia at all). Because there is often a bit of a motor component to functional dyspepsia (meaning that while it is mostly a problem of sensation, people do often have a little bit of slow movement and there gut with FD), it is quite possible that your previous improvement with antibiotics was because a lot of antibiotics do stimulate GI motility, and it might have been helping with that aspect of things. It is also important to point out, given that functional dyspepsia treatment is largely a mind-body approach, that it just as easily could have been "the power of place kvng" with your previous response to antibioticsgenerically speaking a placebo will make a 20% changeand with a diagnosis that is so mind-body like functional dyspepsia, it is important not to discount the possibility that your response happened partly because you were expecting to respond. - Treatment needs to be multifaceted for any true hope of success. Unfortunately with as long as your symptoms have been going on, I do not think we can realistically hope it totally goes away; at the same time I certainly think we can get you to where things are much more manageable/livable/tolerable. - The mainstay of treatment really is a "mind first" mind-body approach. In your daily life, it is important to realize that while eating feels like something terrible is going on, in terms of your GI tract/anatomy/function/etc., the more you can realize that that terrible sensation is essentially "lying to you" the better you will likely be able to do with eating. I know that is asking a lotbut essentially what it means is if the symptom itself is largely the disease, and eating does not actually make the disease worse, and in a bit of a desensitization way might even help the disease, we would definitely recommend you try to eat as best you can. Individually, people often nisha with different foods and find certain things sit better than othersespecially when they are feeling at their worst. Usually simpler to eat/simple are to digest foods will go down better when things are more painful or more flared up. - The next step in the "mind-body approach" is some form of psychology. As we discussed, the GI psychologist at [facility] was more helpful to my daughters improvement than the [facility] pediatric gastroenterology team (they were great to, it is just that the psychologist was a bigger benefit). To the best of my knowledge, [place] pain [place] [facility]. At the same time, we do have a psychology clinic that provides biofeedback therapywhich is often a very helpful way to harness a mind-body approach. This is at a clinic called [facility]. I would definitely recommend starting in with them. - Medications can be helpful in blunting the symptoms, but it is important to remember that This is not the kind of diagnosis that "the right cocktail of medications will fix". Rather I would look at medicines as a bit of educated trial and error, and different medicines could help the symptoms in different w ays, and that certain things might be more helpful to you than others; certain things may not be helpful at all, and approach of stacking multiple medicines might be helpful, or 1 thing might be helping and the rest were not so helpful. To that endDr. Harris will really quarterback the "educated trial and error" with medicationsand medications that have had some degree of benefit for functional dyspepsia range anywhere from medicines like erythromycin or azithromycin (technically antibiotics, but they tend to stimulate motility in the GI tract), to medications that coat the lining of the GI tract such as Mylanta or Carafate, to medications that change pain/nerve sensitivity in her GI tract (such as cyproheptadine which is an antihistamine, or FDGuard which is actually an [id number] herbal supplement that can be pretty helpful at calming some of the irritability of our upper GI tract), to medicines that work on how are central nervous system perceives/reacts to pain (such as higher dosing of BuSpar, tricyclic antidepressant medicines like amitriptyline, or SNRI type antidepressants such as Cymbalta). Because there are a lot of variables in this, and because different people respond differently, essentially all of the above medicines are things that are worth considering/worth trying, but really Dr. Harris working with you will try to help discern what is helping the most, and what helps a little, to have you on is much as you need to to help blunt the symptoms, but not more than you need to be if the medicines are not helping. In that respect, he will likely need to see you a good bit for stepwise assessment/dose adjustment/addition/subtraction abdominal wall trigger points - in addition to the functional dyspepsia, you did also have abdominal wall trigger points. These are actually structures at the myofascial layer (essentially the layer deep to the skin, but above the muscle)and given that they are more of a muscle/fascia structure, really they should create pain that would feel like you strained your abdominal muscles. Because of where our upper abdominal muscles carry pain back to our spinal cordand because that area overlaps with where our upper GI organs carry pain back to our spinal cordwhen people have upper abdominal wall trigger points, it can really confuse our spinal cord into thinking that the pain is coming from our stomach /gallbladder/pancreas etc. and not our abdominal wall. - While I think the functional dyspepsia is probably a bigger part of the "pie chart" of your GI symptoms, you definitely appear like the trigger points are a significant contributor. They likely happened because of having chronic GI distressin essentially a "nerve feedback loop" in reverse of how the trigger points create phantom GI organ pain, having chronic organ pain and having that pain sensation go back to her spinal cord in the same place where the nerves to your upper abdominal wall, out, the constant nerve input from the pain sensation then creates an inappropriate nerve signal that likely allows the trigger points to form to begin with. In this way unfortunately they jhonathan each other very "chicken and egg" - I would definitely recommend continuing to use the Voltaren gel (topical diclofenac) 34 times a day to your upper abdominal wall for the next several weeks, and then have a very low threshold to restart it or use it indefinitely depending on what Dr. Harris is seeing with progress with the trigger points. - We did a trigger point injection on 04/18/2023 here in the hospital (for continuity purposesdry needling and 2% lidocaine only) and like we discussed, given how long the trigger points have been a factor, I would not be surprised if it takes several injections to really start to get ahead of this. To that end, it is likely that Dr. Harris can repeat trigger point injections in the office just like I did in the hospital; and at the same time because our pain management colleagues do this all the time (and can do it under ultrasound guidance) I have put a referral in place for you to see pain management as well. The way I would look at having me/Dr. Harris do the injection versus pain management is that we are more readily availabl and can do the injections more quickly, pain management takes longer to get in to see, and they can do the injections better/more accurately. With that in mind, a "mix and match" approach to managing the trigger points usually works the best for people. I completely understand that both functional dyspepsia and abdominal wall trigger points are odd sounding diagnoses, and certainly it is very reasonable to have a lot of questions about these diagnoses. At the same time, your workup for "more conventional" problems has really had no yield, and while they are going to do the scope/endoscopic ultrasound in about 2 weeks, it is not likely to show much that is the source of your pain either; and even if it does, I definitely think both the functional dyspepsia and trigger points are still part of the problem. The lousy thing is both of these diagnoses take a long time to really make meaningful change in your symptomsand so it can be easy to give up on management before things have really had a chance to help. It is easy to say "be patient" when I am not the one who is got the abdominal pain, but I would definitely urge you to be patient, stay on track with managing both of these diagnoses, and give things time to improve rather than giving up on them. Total Time Total Time Spent Total Time Spent (In Minutes): over 45 minutes spent in consultation with patient, nurse, Dr. Cuellar, chart review and documentation and coordinating medication with outside pharmacy Supervising Physician Co-Signing Physician Notes PA Supervision Note: I personally saw and examined the patient. I verified all robbins points and agree with JOSE Sprague with the following exceptions and/or additions: S-patient feeling better with improved abdominal pain. Appreciate Dr. Carvajal's input greatly as above. O- Vitals reviewed Gen: AAOx3, NAD HEENT: Anicteric sclerae, EOMI CV: RRR no mgr nl S1S2 Pulm: CTAB no wcr Abd: +BS soft mild tenderness to palpation mostly in epigastric region, no guarding or rebound ND no masses or hernias Ext: No edema Skin: No rashes, warm/dry Neuro: Full strength throughout A/C-23-ghhp-old female here with acute on chronic abdominal pain, likely functional dyspepsia and from abdominal wall trigger points. Treatment noted as above Stable for discharge to home Follow-up with urology for stent removal as planned Follow-up with GI for EUS as planned Coding Level of Care Code 66939 INP/OBS DISCH >30 MIN Diagnoses Post-op pain G89.18 Abdominal pain R10.9 Abdominal location: unspecified location COPD (chronic obstructive pulmonary disease) J44.9 Kidney lesion N28.9 Depression F32.A
--- NOTE | 2023-04-19 22:15 | Electrocardiogram Report ---
Test Reason : Blood Pressure : / mmHG Vent. Rate : 059 BPM Atrial Rate : 059 BPM P-R Int : 162 ms QRS Dur : 088 ms QT Int : 442 ms P-R-T Axes : 063 077 068 degrees QTc Int : 437 ms Sinus bradycardia Nonspecific T wave abnormality When compared with ECG of 13-APR-2023 19:17, Vent. rate has decreased BY 32 BPM Questionable change in QRS axis Confirmed by Toan Billings ([id number]) on 04/19/2023 10:15:39 PM Referred By: REFERRED SELF Confirmed By:Toan Billings
== END 2023-04-19 14:55 | disposition home or self-care (01) | DRG 392 ==
LOC: ED 19:05 → 3E 19:05 → SUATTDRO 04-14 01:50 → 3E 04-14 03:15

== ENCOUNTER 2024-10-14 13:51 | Inpatient (IN) ==
[2024-10-14 14:41] LABS: Appearance Urine Clear (Clear); Glucose Urine UA Negative (Negative)
[2024-10-14 14:45] LABS: Hematocrit (blood only) 40.3 % (37.0-47.0); Hemoglobin 12.8 g/dl (12.0-16.0); Immature Granulocytes # (auto) 0.03 K/uL (0.01-0.20); Immature Granulocytes % (auto) 0.4 %; Mean Corpuscular Hemoglobin 27.2 pg (25.0-34.0); Mean Corpuscular Volume 85.7 fL (80.0-100.0); Platelet Count 228 K/uL (130-400); RDW Standard Deviation 46.4 fL (36.4-46.3); Red Blood Count 4.70 M/uL (4.20-5.40); White Blood Count 7.04 K/ul (4.8-10.8)
[2024-10-14 15:04] LABS: Alanine Aminotransferase 16 U/L (7-52); Albumin Globulin Ratio 1.1 (0.9-2); Alkaline Phosphatase 48 U/L (34-104); Anion Gap 6 (3-11); Bilirubin,Total 0.6 mg/dl (0.2-1.0); Blood Urea Nitrogen 13 mg/dl (6-23); Calcium 9.4 mg/dl (8.6-10.3); Carbon Dioxide 28 mmol/L (21-32); Chloride 105 mmol/L (98-107); Creatinine Clr Calc Pharmacy 66.6 ml/min; Globulin 3.5 gm/dl (2.5-4.0); Glucose 96 mg/dl (70-99(Fasting)); Lipase 15 U/L (11-82); Potassium 3.7 mmol/L (3.5-5.1); Sodium 139 mmol/L (136-145); Total Protein 7.3 gm/dl (6.0-8.3)
--- NOTE | 2024-10-14 15:07 | Emergency Department Note ---
Impression & Plan Acute right flank pain, Abnormal computerized axial tomography of liver ED Provider Note NAME: IRAIS MCCARTHY AGE: 64 SEX: Female INFORMANT: Patient ED PROVIDER(S): Jose Juan Butler MD CHIEF COMPLAINT: Right flank pain PLAN: Disposition: Admitted Outpatient prescription management: [none] Referral: None MEDICAL DECISION MAKING: Patient presented because of right upper quadrant/right flank tenderness. She initially declined analgesia. Her CBC and chemistry panels were unremarkable. LFTs were within normal limits. Patient had a normal urinalysis making UTI very unlikely. CT imaging of the abdomen pelvis was performed. No acute renal abnormalities noted. Patient has new ductal dilatation without obvious choledocholithiasis or pancreatic head mass. Radiology recommended MRCP for further management. Patient was given IV Toradol. Patient was reassessed. She was still uncomfortable. Discussed additional analgesia and admission for further workup. Patient in agreement. She was given Dilaudid and Zofran. Consultation was made with Dr. mayfield of the [facility] service. Patient was evaluated in the ER for further management. Care/management discussed with: website project manager, hospitalist Level of care consideration(s): After review of the information above and other included data, I feel the patient requires escalation of care to admission Triage Nursing notes: reviewed and agree them. Vital Signs: reviewed and remarkable for no significant abnormalities Additional History obtained from: none Chronic Medical/Social Conditions affecting care: UTI history Prior/ Outside/ External records reviewed: none Differential Diagnosis: Renal colic, biliary pathology, UTI, appendicitis, diverticulitis, mesenteric ischemia, aortic pathology, infections, inflammatory bowel disease, PUD, as well as other pathologies. Diagnostics, independently interpreted by me: EC-lead ECG was sinus rhythm with PACs at [address] elevation. Cardiac Monitoring: Cardiac monitoring: The patient was placed on continuous cardiac monitoring and observed. It revealed a normal sinus rhythm at 60 without ectopy or evidence of dysrhythmia. Medical decision rules: none Imaging studies: CT scan is noted above. HPI: 64 year old Female arrives for evaluation of right flank pain. This started a few days ago and is worsening. The patient also notes the following associated symptoms, dysuria, fatigue, chills, and mild headache. The patient has found no relieving factors. Current pain is rated as 3/10. Patient states that she contacted her urologist as she has a history of UTI and had a urine sample done yesterday. Pt denies LOC, diaphoresis, visual changes, neck pain, chest pain, breathing difficulties, nausea, vomiting, melena, hematochezia, numbness, weakness, lymphadenopathy, rash, or other complaints. PAST MEDICAL HISTORY: See Below, UTI, C. difficile PAST SURGICAL HISTORY: See Below, SOCIAL HISTORY: See Below, former smoker HOME MEDICATIONS: See Below ALLERGIES: See Below VITALS: See Below PHYSICAL EXAMINATION: GENERAL: Awake, alert, well-appearing, in no distress HENT: Normocephalic, atraumatic. Oropharynx unremarkable. EYES: Normal conjunctiva. Sclera non-icteric. NECK: Inspection normal. Non-tender. Supple. No nuchal rigidity. FROM. No masses. RESPIRATORY: Clear to auscultation. No wheezes. No rales. Normal respiratory effort. CARDIAC: Normal rate. Normal rhythm. No murmurs. No rubs. Extremities warm and well perfused. Pulses equal. No JVD. GI: Soft, non-distended. Right flank and upper quadrant tenderness to palpation. No rebound or guarding. No masses. RECTAL: Deferred. MUSCULOSKELETAL: Atraumatic. Chest examination reveals no tenderness. The back is symmetrical on inspection without obvious abnormality. There is mild right CVA tenderness to palpation. No joint edema. LOWER EXTREMITIES: Calves are equal size bilaterally and non-tender. No edema. No discoloration. NEURO: Normal sensorium. No sensory or motor deficits noted. SKIN: No rash or jaundice noted. PROCEDURES: none CRITICAL CARE: none OBSERVATION NOTE: none Past Med/Surg History Problem List (Updated 10/14/24 @ 19:13 by Jose Juan Butler MD) Abnormal computerized axial tomography of liver (Acute) Acute right flank pain (Acute) Vulvar burning Chronic nausea Drug allergy Atrophic vaginitis Right kidney mass Recurrent UTI Depression Abnormal findings on imaging of biliary tract Abdominal pain (Acute) Bilateral kidney stones Epigastric pain Hip tendinitis Calcium kidney stone Hamstring tendinitis Arthritis of hip Hx of diverticulitis of colon Greater trochanteric pain syndrome Palpitations Chronic venous insufficiency Pain of right sacroiliac joint Helicobacter pylori infection C. difficile colitis Allergic rhinitis (Chronic) Idiopathic urticaria (Acute) Chronic sinusitis (Chronic) Impaired fasting glucose (Chronic) Medical History Urinary tract infection Diverticulosis Gastritis History of gastric polyp History of colon polyps Vertigo Kidney stones Renal mass Paresthesia of upper extremity Diarrhea History of Helicobacter pylori infection Hx of Clostridium difficile infection History of COVID-19 Hx of melanoma of skin Pulmonary embolism Acute diverticulitis Sciatica COPD (chronic obstructive pulmonary disease) Mild reactive airways disease Depression with anxiety Esophageal reflux Fibromyalgia Hypertension Irritable bowel syndrome Hypothyroidism Hyperlipidemia History of asthma Surgical History History of lithotripsy History of cystoscopy Hx of vascular surgery History of esophagogastroduodenoscopy (EGD) Hx of cataract extraction Hx of melanoma excision S/P dilation and curettage History of cryosurgery History of colonoscopy (10/12/19) S/P tonsillectomy S/P sinus surgery S/P SUMAN-BSO S/P laparoscopic cholecystectomy S/P appendectomy Family History Mother Diabetes Father Heart disease Other Asthma Cancer Gallbladder disease Hypertension Stroke Denies family history of Ovarian cancer Myocardial infarction Breast cancer Colorectal cancer Colonic polyp Uterine cancer Social History Smoking Status: Never smoker Tobacco Type: Cigarettes Age Started Using Tobacco: 18; Age Quit Using Tobacco: 58; Second Hand Exposure: No; Do You Dip or Chew Tobacco: No; Hx Substance Use: No Preferred Language: Citizen Of [place] Communication Ability: Effective Visual Impairment: No Limitations Hearing Ability: Normal Chlorine Plant Operator Required: No Beliefs That Will Affect Care: None marital status: Current Living Situation: Spouse current occupational status: disabled Feels Safe at Home: Yes Childhood Exposure to Second-Hand Smoke: Yes Dental Care, Regularly: Yes Seatbelt Use: always Sunscreen Use: Yes Do you think of yourself as: straight/heterosexual Sexual Activity: has been sexually active within the last 12 months Assistive Devices: Cane and Other Allergies Allergies Allergy/AdvReac Type Severity Reaction Status Date / Time bacitracin Allergy Intermediate Hives Verified 10/14/24 16:09 [From Neosporin ([id number])] famotidine Allergy Intermediate Hives Verified 10/14/24 16:09 neomycin Allergy Intermediate Hives Verified 10/14/24 16:09 [From Neosporin ([id number])] polymyxin B Allergy Intermediate Hives Verified 10/14/24 16:09 [From Neosporin ([id number])] amoxicillin [From Augmentin] AdvReac Intermediate Caused C. Verified 10/14/24 16:09 diff clavulanic acid AdvReac Intermediate Caused C. Verified 10/14/24 16:09 [From Augmentin] diff olmesartan AdvReac Intermediate Diarrhea Verified 10/14/24 16:09 vilanterol AdvReac Intermediate Swelling Verified 10/14/24 16:09 [From Breo Ellipta] of legs/feet and GI Upset levofloxacin AdvReac Unknown tendinopathy Verified 10/14/24 16:09 - undetermined if med was cause. Home Meds Home Medications Medication Instructions Recorded Confirmed vitamin E 268 mg (400 unit) capsule 400 unit PO QAM 09/06/18 10/14/24 ascorbate calcium (vitamin C) 500 1,000 mg PO QAM 08/06/20 10/14/24 mg tablet levocetirizine 5 mg tablet 5 mg PO HS 02/13/23 10/14/24 levothyroxine 88 mcg tablet 88 mcg PO QAM 02/13/23 10/14/24 pantoprazole 40 mg tablet,delayed 40 mg PO BID 04/09/23 10/14/24 release (Protonix) activated charcoal 260 mg capsule 260 mg PO QDL 06/18/23 10/14/24 coQ10 (ubiquinol) 100 mg capsule 100 mg PO QAM 06/18/23 10/14/24 peppermint oil 90 mg 180 mg PO BID 06/18/23 10/14/24 capsule,delayed,extended release (IBgard) sucralfate 100 mg/mL oral 10 ml PO UD PRN stomach irritation 07/01/23 10/14/24 suspension (Carafate) cyclosporine 0.09 % eye drops in a 1 drp OPB BID 08/22/23 10/14/24 dropperette (Cequa) cholecalciferol (vitamin D3) 50 50 mcg PO QAM 03/23/24 10/14/24 mcg (2,000 unit) tablet (Vitamin D3) dicyclomine 10 mg capsule 10 mg PO TID PRN Abd pain 03/23/24 10/14/24 estradiol 0.01% (0.1 mg/gram) 0.25 appful vaginal 3XWK 03/23/24 10/14/24 vaginal cream nystatin-triamcinolone 100,000 1 applic topical BID PRN 03/23/24 10/14/24 unit/gram-0.1 % topical ointment Flare/Irritation tamsulosin 0.4 mg capsule 0.4 mg PO QAM 03/23/24 10/14/24 nystatin-triamcinolone 100,000 1 applic topical BID PRN SKIN 10/14/24 10/14/24 unit/gram-0.1 % topical ointment IRRITATIONS Previous Rx's Medication Instructions Recorded inhalational spacing device #1 ea 09/22/18 (Vortex Holding Chamber) albuterol sulfate 90 mcg/actuation 2 puff inhalation Q4H PRN 05/19/22 aerosol inhaler (Ventolin HFA) Shortness Of Breath Or Wheezing #18 grams bupropion HCl 150 mg tablet,12 hr 150 mg PO BID #180 ea 07/11/22 sustained-release fluticasone propionate 50 1 spray intranasal DAILY 30 days 07/22/22 mcg/actuation nasal #48 grams spray,suspension atorvastatin 20 mg tablet 20 mg PO HS #90 tabs 11/13/22 gabapentin 100 mg capsule 100 mg PO BID #30 caps 04/19/23 budesonide-formoterol HFA 80 2 inh inhalation BID #30.59 grams 05/07/23 mcg-4.5 mcg/actuation aerosol inhaler (Symbicort) Saccharomyces boulardii 250 mg 250 mg PO BID #20 caps 06/26/23 capsule (Florastor) fluconazole 150 mg tablet 150 mg PO Q48H 6 days #3 tabs 04/21/24 ondansetron 4 mg disintegrating 4 mg PO Q6H PRN nausea and 08/12/24 tablet vomiting #30 tabs Results & Data (ED) Vital Signs Vital Signs - 24 hr 10/14/24 14:00 10/14/24 15:00 10/14/24 15:44 Temperature 36.7 C Temperature Source Temporal Artery Scan Pulse Rate 73 57 L 61 Pulse Rate from SpO2 Sensor Respiratory Rate 20 16 Blood Pressure 158/88 H 155/83 H Blood Pressure Mean 111 113 Pulse Oximetry 97 97 Oxygen Delivery Method Room Air Sepsis Recent Fever Within 48 Hours No Sepsis New/Unexplained Change in Mental Status N/A Sepsis Action Taken by Nursing No Action Required 10/14/24 16:00 10/14/24 16:00 10/14/24 17:30 Temperature Temperature Source Pulse Rate 63 62 Pulse Rate from SpO2 Sensor 60 63 Respiratory Rate 19 13 Blood Pressure 153/67 H 160/76 H 163/72 H Blood Pressure Mean 106 104 105 Pulse Oximetry 97 97 Oxygen Delivery Method Sepsis Recent Fever Within 48 Hours Sepsis New/Unexplained Change in Mental Status Sepsis Action Taken by Nursing 10/14/24 18:00 Temperature Temperature Source Pulse Rate 60 Pulse Rate from SpO2 Sensor 60 Respiratory Rate 14 Blood Pressure 158/73 H Blood Pressure Mean 101 Pulse Oximetry 98 Oxygen Delivery Method Room Air Sepsis Recent Fever Within 48 Hours Sepsis New/Unexplained Change in Mental Status Sepsis Action Taken by Nursing Laboratory Data 10/14/24 14:32 10/14/24 14:32 Lab Results 10/14/24 10/14/24 Range/Units 14:25 14:32 WBC 7.04 (4.8-10.8) K/ul RBC 4.70 (4.20-5.40) M/uL Hgb 12.8 (12.0-16.0) g/dl Hct 40.3 (37.0-47.0) % MCV 85.7 (80.0-100.0) fL MCH 27.2 (25.0-34.0) pg MCHC 31.8 L (32.0-36.0) g/dL RDW Std Deviation 46.4 H (36.4-46.3) fL RDW Coeff of Sánchez 14.9 H (11.5-14.5) % Plt Count 228 (130-400) K/uL MPV 9.1 L (9.4-12.4) fL Immature Gran % (Auto) 0.4 % Neut % (Auto) 67.0 % Lymph % (Auto) 24.4 % [place] % (Auto) 7.2 % Eos % (Auto) 0.3 % Baso % (Auto) 0.7 % Neut # (Auto) 4.71 (1.40-6.50) K/uL Lymph # (Auto) 1.72 (1.20-3.40) K/uL [place] # (Auto) 0.51 (0.11-0.59) K/uL Eos # (Auto) 0.02 (0.00-0.50) K/uL Baso # (Auto) 0.05 (0.00-0.20) K/uL Immature Gran # (Auto) 0.03 (0.01-0.20) K/uL Sodium 139 (136-145) mmol/L Potassium 3.7 (3.5-5.1) mmol/L Chloride 105 (98-107) mmol/L Carbon Dioxide 28 (21-32) mmol/L Anion Gap 6 (3-11) BUN 13 (6-23) mg/dl Creatinine 0.82 (0.6-1.2) mg/dl Est Cr Clr Drug Dosing 66.6 ml/min eGFR 78.84 BUN/Creatinine Ratio 15.9 (10-20) Glucose 96 (70-99(Fasting)) mg/dl Calcium 9.4 (8.6-10.3) mg/dl Total Bilirubin 0.6 (0.2-1.0) mg/dl AST 17 (13-39) U/L ALT 16 (7-52) U/L Alkaline Phosphatase 48 (34-104) U/L Troponin I High Sens 2.4 (0-14) pg/ml C-Reactive Protein < 0.50 (0-0.5) mg/dl Total Protein 7.3 (6.0-8.3) gm/dl Albumin 3.8 (3.4-5.0) gm/dl Globulin 3.5 (2.5-4.0) gm/dl Albumin/Globulin Ratio 1.1 (0.9-2) Lipase 15 (11-82) U/L Urine Color Yellow Urine Appearance Clear (Clear) Urine pH 6.0 (4.5-7.5) Ur Specific [place] 1.010 (1.000-1.030) Urine Protein Negative (Negative) Urine Glucose (UA) Negative (Negative) Urine Ketones Negative (Negative) Urine Blood Negative (Negative) Urine Nitrite Negative (Negative) Urine Bilirubin Negative (Negative) Urine Urobilinogen Negative (Negative) Ur Leukocyte Esterase Negative (Negative) Urine Comment Administered Medications Hydromorphone HCl (Hydromorphone Inj 0.5 Mg/0.5 Ml Syr) 0.25 mg IV Q15M PRN PRN Reason: Pain Stop: 10/28/24 17:46 Last Admin: 10/14/24 18:34 Dose: 0.25 mg Documented By: MORRO Discontinued Medications Ioversol (Optiray 320 100ml) 93 ml IV ONCE ONE Stop: 10/14/24 15:36 Last Admin: 10/14/24 15:35 Dose: 93 ml Documented By: VENKATESH Ketorolac Tromethamine (Ketorolac Tromethamine 15 Mg/Ml Vial) 10 mg IV NOW ONE Stop: 10/14/24 15:55 Last Admin: 10/14/24 16:06 Dose: 10 mg Documented By: ANURAG Ondansetron HCl (Ondansetron Inj 2 Mg/Ml 2 Ml Vial) 4 mg IV NOW STA Stop: 10/14/24 17:48 Last Admin: 10/14/24 18:34 Dose: 4 mg Documented By: MORRO Imaging Data Radiologist's Impression: Abdomen/Pelvis CT 10/14/24 14:35 EXAMINATION: CT of the abdomen and pelvis performed after the administration of IV contrast. TECHNIQUE: Helical CT images from the lung bases through the symphysis pubis were obtained with contrast. Coronal and sagittal reformatted images were generated at a workstation for further assessment. Dose reduction techniques were achieved by using automatic exposure control and/or adjustment of mA and/or kV according to patient size and/or use of iterative reconstruction technique. HISTORY: Right flank pain. COMPARISON: May 06, 2024. FINDINGS: Physical Therapist Center Manager film demonstrates nonspecific prominent gas distended large bowel. Lung windows demonstrate clear included pulmonary bases. Soft tissue windows demonstrate cholecystectomy changes. Prominent intrahepatic and common ducts. No discrete radiopaque choledocholithiasis or pancreatic head mass. Uterus is absent. Ovaries not identified. Mild air-fluid distended proximal large bowel. No appreciated wall thickening or mechanical obstruction. Terminal ileum is within normal limits. Appendix is not identified. No secondary findings of appendiceal disease. Remaining solid and hollow organs of the abdomen and pelvis are within normal limits. No appreciated free air or free fluid. Bone windows demonstrate degenerative changes of the spine. IMPRESSION: 1. Interval prominent intrahepatic and extra hepatic ducts without discrete radiopaque choledocholithiasis or pancreatic head mass. Consider MRCP if indicated. Correlate with clinical data. 2. Prominent air-fluid distended proximal large bowel without discrete mass, wall thickening or surrounding inflammatory changes. No discrete colitis. Question transient malabsorption. Correlate with clinical data. No additional findings to indicate source of patient's symptoms. Please see above for details. Electronically signed by MassielirasemaRamu chen 10-14-2024 4:37 PM Discharge Plan Visit Data Chief Complaint: Urinary Symptoms Stated Complaint: CHILLS,FEVER,NAUSEA,PAIN RGT SIDE,LIGHT HEAD ED Provider: Jose Juan Butler Discharge Problem: Acute right flank pain, Abnormal computerized axial tomography of liver Patient Disposition: Admitted As Inpatient Condition: Good Forms Stand Alone Forms: [facility] Prescriptions Prescriptions: No Action albuterol sulfate [Ventolin HFA] 90 mcg/actuation HFA aerosol inhaler 2 puff inhalation Q4H PRN (Reason: Shortness Of Breath Or Wheezing) Qty: 18 5RF bupropion HCl 150 mg tablet sustained-release 12 hr 150 mg PO BID Qty: 180 3RF fluticasone propionate 50 mcg/actuation spray,suspension 1 spray intranasal DAILY 30 Days Qty: 48 3RF Rx Instructions: 1 SPRAY IN EACH NOSTRIL DAILY atorvastatin 20 mg tablet 20 mg PO HS Qty: 90 3RF budesonide-formoterol [Symbicort] 80-4.5 mcg/actuation HFA aerosol inhaler 2 inh inhalation BID Qty: 30.59 3RF Hold Instructions: Gastritis Rx Instructions: INHALE 2 PUFFS INTO THE LUNGS TWICE A DAY ondansetron 4 mg tablet,disintegrating 4 mg PO Q6H PRN (Reason: nausea and vomiting) Qty: 30 2RF (DME) Vortex Holding Chamber spacer See Dose Instructions .ROUTE .MEDSUPPLY Qty: 1 0RF Dose Instruction: As directed Rx Instructions: As directed ascorbate calcium (vitamin C) 500 mg tablet 1,000 mg PO QAM fluconazole 150 mg tablet 150 mg PO Q48H 6 Days Qty: 3 1RF vitamin E 400 unit Capsule 400 unit PO QAM levothyroxine 88 mcg tablet 88 mcg PO QAM levocetirizine 5 mg tablet 5 mg PO HS gabapentin 100 mg Capsule 100 mg PO BID Qty: 30 0RF pantoprazole [Protonix] 40 mg tablet,delayed release (DR/EC) 40 mg PO BID Saccharomyces boulardii [Florastor] 250 mg capsule 250 mg PO BID Qty: 20 0RF Rx Instructions: swallow whole cholecalciferol (vitamin D3) [Vitamin D3] 50 mcg (2,000 unit) Tablet 50 mcg PO QAM nystatin-triamcinolone 100,000-0.1 unit/gram-% ointment 1 applic topical BID PRN (Reason: Flare/Irritation) tamsulosin 0.4 mg capsule 0.4 mg PO QAM estradiol 0.01 % (0.1 mg/gram) cream 0.25 appful VAGINAL 3XWK Rx Instructions: Mon/Wed/Fri dicyclomine 10 mg capsule 10 mg PO TID PRN (Reason: Abd pain) sucralfate [Carafate] 100 mg/mL suspension 10 ml PO UD PRN (Reason: stomach irritation) Rx Instructions: swish in mouth and swallow; use after food/drink: May substitute tablets as a slurry. coQ10 (ubiquinol) 100 mg Capsule 100 mg PO QAM activated charcoal 260 mg Capsule 260 mg PO QDL IBgard 90 mg Capsule,Delayed,Extend.Release 180 mg PO BID Patient Comments: before meals Cequa 0.09 % dropperette 1 drp OPB BID Rx Instructions: hasnt started yet nystatin-triamcinolone 100,000-0.1 unit/gram-% ointment 1 applic topical BID PRN (Reason: SKIN IRRITATIONS) Referrals Referrals: La Nena Garrett MD [Primary Care Provider] -
[2024-10-14] MEDS: OPTIRAY 320 100ml IV ONE (15:35)
[2024-10-14] MEDS: KETOROLAC TROMETHAMINE 15 MG/ML VIAL IV ONE (16:06)
--- NOTE | 2024-10-14 16:37 | CT Scan Report ---
EXAMINATION: CT of the abdomen and pelvis performed after the administration of IV contrast. TECHNIQUE: Helical CT images from the lung bases through the symphysis pubis were obtained with contrast. Coronal and sagittal reformatted images were generated at a workstation for further assessment. Dose reduction techniques were achieved by using automatic exposure control and/or adjustment of mA and/or kV according to patient size and/or use of iterative reconstruction technique. HISTORY: Right flank pain. COMPARISON: May 06, 2024. FINDINGS: Para Machine Operator film demonstrates nonspecific prominent gas distended large bowel. Lung windows demonstrate clear included pulmonary bases. Soft tissue windows demonstrate cholecystectomy changes. Prominent intrahepatic and common ducts. No discrete radiopaque choledocholithiasis or pancreatic head mass. Uterus is absent. Ovaries not identified. Mild air-fluid distended proximal large bowel. No appreciated wall thickening or mechanical obstruction. Terminal ileum is within normal limits. Appendix is not identified. No secondary findings of appendiceal disease. Remaining solid and hollow organs of the abdomen and pelvis are within normal limits. No appreciated free air or free fluid. Bone windows demonstrate degenerative changes of the spine. IMPRESSION: 1. Interval prominent intrahepatic and extra hepatic ducts without discrete radiopaque choledocholithiasis or pancreatic head mass. Consider MRCP if indicated. Correlate with clinical data. 2. Prominent air-fluid distended proximal large bowel without discrete mass, wall thickening or surrounding inflammatory changes. No discrete colitis. Question transient malabsorption. Correlate with clinical data. No additional findings to indicate source of patient's symptoms. Please see above for details. Electronically signed by Ramu Maddox 10-14-2024 4:37 PM
--- NOTE | 2024-10-14 18:04 | History & Physical Report ---
Date of Service October 14, 2024 Assessment & Plan (1) RUQ abdominal pain: (2) Abnormal findings on imaging of biliary tract: (3) Chills: (4) Vulvar burning: (5) Recurrent UTI: Plan 64yo female with history of recurrent UTIs, prior kidney stones, fibromyalgia, right-sided kidney cancer s/p ablation procedure, hypothyroidism, remote h/o PE, and hyperlipidemia who presents with 1-2 weeks of chills, some sweats at night, then the development of feeling very poorly on Thursday of this week. Since then she has had progressive right upper quadrant abdominal pain, nausea, poor appetite, and some episodes of yellow loose stool/diarrhea. #RUQ abdominal pain - -abnormal CT imaging of the biliary tracts, her RUQ pain, chills, etc are all concerning for biliary tract disease -oddly her LFTs and lipase are wnl, however, despite the CT imaging -doubt pyelonephritis - u/a today is very normal, and urine cx from 10/13 is negative -can't exclude gastric pathology but much less likely -plan: -keep NPO except for meds -IV fluids; give a bolus first followed by maintenance fluids -obtain blood cx's x 2 sets due to chills -repeat LFTs am -defer on antibiotics for now -IV PPI -IV pain meds prn -IV anti-emetics prn -urgent MRCP - r/o choledocholithiasis, r/o biliary stricture, r/o other pathology -if note - checked a lactate and CRP -- both negative/normal #chills, fatigue, etc - -check 2 sets of blood cx's -check COVID/flu/RSV swab -check lyme and anaplasmosis/babesia smears -see above under "RUQ pain" #recurrent UTI - -no evidence of such at this time #h/o vaginal candidiasis - -prior genital cultures have grown ya glabrata as well as MDR pathogens -send repeat genital culture -if ya glabrata grows again she would need a repeat course of amphotericin vaginal inserts #hypothyroidism - -TSH in June 2024 was wnl -cont synthroid #DVT proph - -if MRCP does not show any findings that would require surgical intervention would recommend SC heparin or lovenox History of Present Illness Chief Complaint: chills, right upper quadrant abd pain Primary Care Provider: La Nena Garrett MD 64yo female with history of recurrent UTIs, prior kidney stones, fibromyalgia, right-sided kidney cancer s/p ablation procedure, hypothyroidism, remote h/o PE, and hyperlipidemia who presents with 1-2 weeks of chills, some sweats at night, then the development of feeling very poorly on Thursday of this week. Since then she has had progressive right upper quadrant abdominal pain, nausea, poor appetite, and some episodes of yellow loose stool/diarrhea. She has not vomited. She has been trying to hydrate but this has been difficult as well. She continues with dysuria. She is uncertain if she has vaginal discharge. Tylenol prn pain at home was not effective. No documented fever. No travel. No sick contacts. Pain in her abdomen has not been worsened by eating. She has tendencies towards abdominal discomfort, but this is different than her typical/chronic lower abdominal pain. Patient denies any back pain. Denies left-sided abdominal pain. When asked if her pain is similar to when she had gall bladder disease 20 years ago she cannot recall. Allergies Allergy/AdvReac Type Severity Reaction Status Date / Time bacitracin Allergy Intermediate Hives Verified 10/14/24 16:09 [From Neosporin ([id number])] famotidine Allergy Intermediate Hives Verified 10/14/24 16:09 neomycin Allergy Intermediate Hives Verified 10/14/24 16:09 [From Neosporin ([id number])] polymyxin B Allergy Intermediate Hives Verified 10/14/24 16:09 [From Neosporin ([id number])] amoxicillin [From Augmentin] AdvReac Intermediate Caused C. Verified 10/14/24 16:09 diff clavulanic acid AdvReac Intermediate Caused C. Verified 10/14/24 16:09 [From Augmentin] diff olmesartan AdvReac Intermediate Diarrhea Verified 10/14/24 16:09 vilanterol AdvReac Intermediate Swelling Verified 10/14/24 16:09 [From Breo Ellipta] of legs/feet and GI Upset levofloxacin AdvReac Unknown tendinopathy Verified 10/14/24 16:09 - undetermined if med was cause. Home Medications Medication Instructions Recorded Confirmed Type vitamin E 268 mg (400 unit) capsule 400 unit PO QAM 09/06/18 10/14/24 History inhalational spacing device #1 ea 09/22/18 09/14/24 Rx (Vortex Holding Chamber) ascorbate calcium (vitamin C) 500 1,000 mg PO QAM 08/06/20 10/14/24 History mg tablet albuterol sulfate 90 mcg/actuation 2 puff inhalation Q4H PRN 05/19/22 10/14/24 Rx aerosol inhaler (Ventolin HFA) Shortness Of Breath Or Wheezing #18 grams bupropion HCl 150 mg tablet,12 hr 150 mg PO BID #180 ea 07/11/22 10/14/24 Rx sustained-release fluticasone propionate 50 1 spray intranasal DAILY 30 days 07/22/22 10/14/24 Rx mcg/actuation nasal #48 grams spray,suspension atorvastatin 20 mg tablet 20 mg PO HS #90 tabs 11/13/22 10/14/24 Rx levocetirizine 5 mg tablet 5 mg PO HS 02/13/23 10/14/24 History levothyroxine 88 mcg tablet 88 mcg PO QAM 02/13/23 10/14/24 History pantoprazole 40 mg tablet,delayed 40 mg PO BID 04/09/23 10/14/24 History release (Protonix) gabapentin 100 mg capsule 100 mg PO BID #30 caps 04/19/23 10/14/24 Rx budesonide-formoterol HFA 80 2 inh inhalation BID #30.59 grams 05/07/23 10/14/24 Rx mcg-4.5 mcg/actuation aerosol inhaler (Symbicort) activated charcoal 260 mg capsule 260 mg PO QDL 06/18/23 10/14/24 History coQ10 (ubiquinol) 100 mg capsule 100 mg PO QAM 06/18/23 10/14/24 History peppermint oil 90 mg 180 mg PO BID 06/18/23 10/14/24 History capsule,delayed,extended release (IBgard) Saccharomyces boulardii 250 mg 250 mg PO BID #20 caps 06/26/23 10/14/24 Rx capsule (Florastor) sucralfate 100 mg/mL oral 10 ml PO UD PRN stomach irritation 07/01/23 10/14/24 History suspension (Carafate) cyclosporine 0.09 % eye drops in a 1 drp OPB BID 08/22/23 10/14/24 History dropperette (Cequa) cholecalciferol (vitamin D3) 50 50 mcg PO QAM 03/23/24 10/14/24 History mcg (2,000 unit) tablet (Vitamin D3) dicyclomine 10 mg capsule 10 mg PO TID PRN Abd pain 03/23/24 10/14/24 History estradiol 0.01% (0.1 mg/gram) 0.25 appful vaginal 3XWK 03/23/24 10/14/24 History vaginal cream nystatin-triamcinolone 100,000 1 applic topical BID PRN 03/23/24 10/14/24 History unit/gram-0.1 % topical ointment Flare/Irritation tamsulosin 0.4 mg capsule 0.4 mg PO QAM 03/23/24 10/14/24 History fluconazole 150 mg tablet 150 mg PO Q48H 6 days #3 tabs 04/21/24 10/14/24 Rx ondansetron 4 mg disintegrating 4 mg PO Q6H PRN nausea and 08/12/24 10/14/24 Rx tablet vomiting #30 tabs nystatin-triamcinolone 100,000 1 applic topical BID PRN SKIN 10/14/24 10/14/24 History unit/gram-0.1 % topical ointment IRRITATIONS Past Med/Surg History Problem List Chills RUQ abdominal pain Abnormal computerized axial tomography of liver (Acute) Acute right flank pain (Acute) Vulvar burning Chronic nausea Drug allergy Atrophic vaginitis Right kidney mass Recurrent UTI Depression Abnormal findings on imaging of biliary tract Abdominal pain (Acute) Bilateral kidney stones Epigastric pain Hip tendinitis Calcium kidney stone Hamstring tendinitis Arthritis of hip Hx of diverticulitis of colon Greater trochanteric pain syndrome Palpitations Chronic venous insufficiency Pain of right sacroiliac joint Helicobacter pylori infection C. difficile colitis Allergic rhinitis (Chronic) Idiopathic urticaria (Acute) Chronic sinusitis (Chronic) Impaired fasting glucose (Chronic) Medical History Urinary tract infection abx completed 06/28 or 06/30/23 - feeling better, all symptoms gone except some pressure. Pre op edu rev. Diverticulosis hx Gastritis History of gastric polyp History of colon polyps Vertigo none for over a month Kidney stones current Renal mass [place] [facility] aware, monitoring Paresthesia of upper extremity sometimes arms Diarrhea current : on occ /finished abx recently. History of Helicobacter pylori infection Hx of Clostridium difficile infection Remote hx approximately 30 years ago History of COVID-19 03/19/2023 (PCR, [place]) > resolved 11/2021- fatigue, congestion, cough, sore throat > resolved pt reports has had a total of 3 times : 1st time in 2019 ? Hx of melanoma of skin Pulmonary embolism Remote hx approximately 30 years ago, after SUMAN (blood thinners x 3 months) Acute diverticulitis listed in differential diagnosis 04/14/23 by hospitalist, not included on discharge summary Sciatica hx COPD (chronic obstructive pulmonary disease) well controlled per pt, rare res inh use Mild reactive airways disease Depression with anxiety Esophageal reflux Fibromyalgia Hypertension Irritable bowel syndrome Hypothyroidism Hyperlipidemia History of asthma Surgical History History of lithotripsy History of cystoscopy Hx of vascular surgery Dr Morales [facility] 07/2022 Distal LT GSV accessed under ultrasound guidance with placement of 4Fr sheath History of esophagogastroduodenoscopy (EGD) Hx of cataract extraction Hx of melanoma excision stomach S/P dilation and curettage History of cryosurgery History of colonoscopy (10/12/19) 4 polyps removed, [facility], Dr. Roque S/P tonsillectomy S/P sinus surgery S/P SUMAN-BSO S/P laparoscopic cholecystectomy S/P appendectomy Family History Mother Diabetes Father Heart disease Other Asthma Cancer Gallbladder disease Hypertension Stroke Denies family history of Ovarian cancer Myocardial infarction Breast cancer Colorectal cancer Colonic polyp Uterine cancer Social History Smoking Status: Former smoker Tobacco Type: Cigarettes Age Started Using Tobacco: 18; Age Quit Using Tobacco: 58; Smoking End Date: 2017; Second Hand Exposure: No; Do You Dip or Chew Tobacco: No; Hx Alcohol Use: No Hx Substance Use: No Preferred Language: Swiss Communication Ability: Effective Visual Impairment: No Limitations Hearing Ability: Normal Subway Operator Required: No Beliefs That Will Affect Care: None marital status: Current Living Situation: Spouse Current Living Situation Comment: home with current occupational status: disabled Other Information That Helps Us Care for You: No Feels Safe at Home: Yes Safety Concerns: Feels Safe At This Time Childhood Exposure to Second-Hand Smoke: Yes Dental Care, Regularly: Yes Seatbelt Use: always Sunscreen Use: Yes Do you think of yourself as: straight/heterosexual Sexual Activity: has been sexually active within the last 12 months Assistive Devices: Denture - Upper Assistive Devices Comment: partial upper dentures Review of Systems Review of Systems: gen - no fevers, but has had chills x 1-2 weeks eyes - no visual changes HENT - no URI symptoms; no ear pain or sore throat CV - no chest pain, no edema pulm - mild dyspnea yesterday - now resolved; no cough GI - RUQ abd pain, no vomiting, ongoing nausea however; no BRBPR or melean - dysuria; ?vaginal discharge? musculo - no synovitis skin - no rash neuro - mild headaches, frontal, for several days endo - no diabetes Physical Exam Physical Exam: gen - looks ill, looks dehydrated, awake/alert eyes - PERRL HENT - MM very dry; no lesions neck - no JVD, no lymph nodes heart - RRR, s1 s2, no murmur lungs - CTA b/l abd - very tender RUQ, tender epigastric region as well; no peritoneal signs; BS+; no HSM ext - no edema, pulses 2+ b/l neuro - strength 5/5 x 4 exts; DTRs 2+ b/l; no facial droop; speech clear skin - no rash psych - a/o x 3 Results & Data Results & Data Vital Signs (Past 12 Hours) Vital Signs Temp Pulse Resp BP Pulse Ox O2 Del Method 10/14/24 15:44 61 10/14/24 14:00 36.7 C 73 20 158/88 H 97 Room Air Laboratory Results Laboratory Results - last 24 hr 10/14/24 10/14/24 10/14/24 14:25 14:32 19:15 WBC 7.04 RBC 4.70 Hgb 12.8 Hct 40.3 MCV 85.7 MCH 27.2 MCHC 31.8 L RDW Std Deviation 46.4 H RDW Coeff of Sánchez 14.9 H Plt Count 228 MPV 9.1 L Immature Gran % (Auto) 0.4 Neut % (Auto) 67.0 Lymph % (Auto) 24.4 Castro % (Auto) 7.2 Eos % (Auto) 0.3 Baso % (Auto) 0.7 Neut # (Auto) 4.71 Lymph # (Auto) 1.72 Castro # (Auto) 0.51 Eos # (Auto) 0.02 Baso # (Auto) 0.05 Immature Gran # (Auto) 0.03 Sodium 139 Potassium 3.7 Chloride 105 Carbon Dioxide 28 Anion Gap 6 BUN 13 Creatinine 0.82 Est Cr Clr Drug Dosing 66.6 eGFR 78.84 BUN/Creatinine Ratio 15.9 Glucose 96 Lactate Calcium 9.4 Total Bilirubin 0.6 AST 17 ALT 16 Alkaline Phosphatase 48 Troponin I High Sens 2.4 C-Reactive Protein < 0.50 Total Protein 7.3 Albumin 3.8 Globulin 3.5 Albumin/Globulin Ratio 1.1 Lipase 15 Urine Color Yellow Urine Appearance Clear Urine pH 6.0 Ur Specific [place] 1.010 Urine Protein Negative Urine Glucose (UA) Negative Urine Ketones Negative Urine Blood Negative Urine Nitrite Negative Urine Bilirubin Negative Urine Urobilinogen Negative Ur Leukocyte Esterase Negative Urine Comment Anaplasma Smear Babesia Smear Lyme Disease Screen Negative SARS-CoV-2 (PCR) NEGATIVE Influenza Type A (PCR) Negative Influenza Type B (PCR) Negative RSV (RT-PCR) Negative 10/14/24 19:41 WBC RBC Hgb Hct MCV MCH MCHC RDW Std Deviation RDW Coeff of Sánchez Plt Count MPV Immature Gran % (Auto) Neut % (Auto) Lymph % (Auto) Castro % (Auto) Eos % (Auto) Baso % (Auto) Neut # (Auto) Lymph # (Auto) Castro # (Auto) Eos # (Auto) Baso # (Auto) Immature Gran # (Auto) Sodium Potassium Chloride Carbon Dioxide Anion Gap BUN Creatinine Est Cr Clr Drug Dosing eGFR BUN/Creatinine Ratio Glucose Lactate 0.8 Calcium Total Bilirubin AST ALT Alkaline Phosphatase Troponin I High Sens C-Reactive Protein Total Protein Albumin Globulin Albumin/Globulin Ratio Lipase Urine Color Urine Appearance Urine pH Ur Specific [place] Urine Protein Urine Glucose (UA) Urine Ketones Urine Blood Urine Nitrite Urine Bilirubin Urine Urobilinogen Ur Leukocyte Esterase Urine Comment Anaplasma Smear See Comment Babesia Smear See Comment Lyme Disease Screen SARS-CoV-2 (PCR) Influenza Type A (PCR) Influenza Type B (PCR) RSV (RT-PCR) Diagnostic Findings Abdomen/Pelvis CT 10/14/24 14:35 EXAMINATION: CT of the abdomen and pelvis performed after the administration of IV contrast. TECHNIQUE: Helical CT images from the lung bases through the symphysis pubis were obtained with contrast. Coronal and sagittal reformatted images were generated at a workstation for further assessment. Dose reduction techniques were achieved by using automatic exposure control and/or adjustment of mA and/or kV according to patient size and/or use of iterative reconstruction technique. HISTORY: Right flank pain. COMPARISON: May 06, 2024. FINDINGS: Management Services Technician film demonstrates nonspecific prominent gas distended large bowel. Lung windows demonstrate clear included pulmonary bases. Soft tissue windows demonstrate cholecystectomy changes. Prominent intrahepatic and common ducts. No discrete radiopaque choledocholithiasis or pancreatic head mass. Uterus is absent. Ovaries not identified. Mild air-fluid distended proximal large bowel. No appreciated wall thickening or mechanical obstruction. Terminal ileum is within normal limits. Appendix is not identified. No secondary findings of appendiceal disease. Remaining solid and hollow organs of the abdomen and pelvis are within normal limits. No appreciated free air or free fluid. Bone windows demonstrate degenerative changes of the spine. IMPRESSION: 1. Interval prominent intrahepatic and extra hepatic ducts without discrete radiopaque choledocholithiasis or pancreatic head mass. Consider MRCP if indicated. Correlate with clinical data. 2. Prominent air-fluid distended proximal large bowel without discrete mass, wall thickening or surrounding inflammatory changes. No discrete colitis. Question transient malabsorption. Correlate with clinical data. No additional findings to indicate source of patient's symptoms. Please see above for details. Electronically signed by Ramu Maddox 10-14-2024 4:37 PM PG Care Time/CCT Total # of Minutes Spent Total Time Spent with Patient: Total time spent is greater than 50% in coordination of care (as documented) at patient's floor/unit and/or counseling patient: Coding Level of Care Code 65844 INT INP/OBS CARE 3/75MIN Diagnoses RUQ abdominal pain R10.11 Abnormal findings on imaging of biliary tract R93.2 Chills R68.83 Vulvar burning N94.89 Recurrent UTI N39.0
[2024-10-14] MEDS: HYDROmorphone INJ 0.5 MG/0.5 ML SYR IV PRN (18:34)
[2024-10-14] MEDS: ONDANSETRON INJ 2 MG/ML 2 ML VIAL IV STA (18:34)
[2024-10-14] MEDS: HYDROmorphone INJ 0.5 MG/0.5 ML SYR IV STA (19:39)
[2024-10-14] MEDS: SODIUM CHLORIDE 0.9% 500 ML IV ONE (19:39)
[2024-10-14 19:59] LABS: Influenza A virus by PCR Negative (Neg); Influenza B virus by PCR Negative (Neg); SARS CoV2 RNA(COVID-19) Ceph NEGATIVE (Negative)
[2024-10-14] MEDS: PANTOprazole 40 MG/10 ML SYR IV ONE (20:04)
[2024-10-14] MEDS: D5NSS + 20MEQ KCL 20 MEQ/1,000 ML BAG IV SCH (20:06)
[2024-10-14] MEDS ORDERED: NON-FORMULARY MEDICATION (Estradiol 0.01 % (0.1 mg/gram) cream) PV SCH (21:46)
[2024-10-14] MEDS ORDERED: ALBUTEROL HFA 8 GM INHALER INH PRN (21:46)
[2024-10-14] MEDS: GABAPENTIN 100 MG CAP PO SCH (22:49)
[2024-10-14] MEDS: SACCHAROMYCES BOULARDII 250 MG CAP PO SCH (22:50)
[2024-10-14] MEDS: CETIRIZINE HCL 10 MG TABLET PO SCH (22:50)
[2024-10-14] MEDS: ACETAMINOPHEN 325 MG TAB PO PRN (22:53)
[2024-10-15] MEDS: HYDROmorphone INJ 0.5 MG/0.5 ML SYR IV PRN (00:37)
[2024-10-15] MEDS: PROPRANOLOL HCL 60 MG LA CAP PO SCH (00:41)
[2024-10-15] MEDS: LEVOTHYROXINE SODIUM 88 MCG TABLET PO SCH (05:20)
[2024-10-15] MEDS: ONDANSETRON INJ 2 MG/ML 2 ML VIAL IV PRN (05:39)
[2024-10-15 07:33] LABS: Hematocrit (blood only) 33.0 % (37.0-47.0); Hemoglobin 10.4 g/dl (12.0-16.0); Mean Corpuscular Hemoglobin 27.6 pg (25.0-34.0); Mean Corpuscular Volume 87.5 fL (80.0-100.0); Platelet Count 189 K/uL (130-400); RDW Standard Deviation 48.0 fL (36.4-46.3); Red Blood Count 3.77 M/uL (4.20-5.40); White Blood Count 4.48 K/ul (4.8-10.8)
[2024-10-15 07:56] LABS: Alanine Aminotransferase 13.0 U/L (7-52); Albumin Globulin Ratio 1.4 (0.9-2); Alkaline Phosphatase 33.0 U/L (34-104); Anion Gap 2.0 (3-11); Bilirubin,Total 0.4 mg/dl (0.2-1.0); Blood Urea Nitrogen 13.0 mg/dl (6-23); Calcium 7.9 mg/dl (8.6-10.3); Carbon Dioxide 29.0 mmol/L (21-32); Chloride 113.0 mmol/L (98-107); Creatinine Clr Calc Pharmacy 68.5 ml/min; Globulin 2.2 gm/dl (2.5-4.0); Glucose 108.0 mg/dl (70-99(Fasting)); Potassium 4.1 mmol/L (3.5-5.1); Sodium 144.0 mmol/L (136-145); Total Protein 5.3 gm/dl (6.0-8.3)
[2024-10-15] MEDS: DICYCLOMINE HCL 10 MG CAP PO PRN (07:58)
[2024-10-15] MEDS: TAMSULOSIN HCL 0.4 MG CAP PO SCH (07:59)
[2024-10-15] MEDS: FLUTICASONE PROPIONATE NA SPR 16 GM BTL SCH (08:00)
--- NOTE | 2024-10-15 09:15 | Hospitalist Progress Note ---
Date of Service October 15, 2024 Assessment & Plan (1) RUQ abdominal pain: (2) Abnormal findings on imaging of biliary tract: (3) Chills: (4) Vulvar burning: (5) Recurrent UTI: (6) Anemia: Plan This patient is a 64yo female with PMH of recurrent UTIs, prior kidney stones, cholecystectomy, fibromyalgia, right-sided kidney cancer s/p ablation procedure, and remote h/o PE who presents with 1-2 weeks of chills and night sweats. Since then she has had progressive right upper quadrant abdominal pain, nausea, poor appetite, and some episodes of yellow loose stool/diarrhea. #RUQ abdominal pain | chills | fatigue Abnormal CT imaging of the biliary tracts, her RUQ pain, chills, etc are all concerning for biliary tract disease Oddly her LFTs remain stable on 10/14 and 10/15 Lipase, lactate, CRP WNL Lyme, Anaplasma, babesiosis negative COVID, flu, RSV negative Doubt pyelonephritis - UA normal, and urine cx from 10/13 is negative Can't exclude gastric pathology but much less likely MRCP revealed no pancreatic ductal dilation, no common bile duct calculi IV fluids discontinued on 10/15, advance to full liquid diet GI consult appreciated Continued RUQ pain despite with negative workup/negative MRCP findings Leading DDx at this time include peptic/duodenal ulcer vs. viral GI illness Protonix 40 mg IV daily Acetaminophen 1000 mg IV PRN for pain/fever IV antiemetics PRN Antibiotics deferred at this time #Anemia Hgb trend 12.8 -> 10.4 Suspect this is volume dilution due to being on IV fluids overnight No active bleeding appreciated on clinical exam Trend CBC #Wheezing (resolved) Patient does not have any respiratory symptoms at this time, she does note an episode of wheezing prior to arrival SpO2 91% on RA on the evening of 10/15 (lower than baseline) CXR ordered to rule out development of occult right lower lobe pneumonia #H/o vaginal candidiasis Prior genital cultures have grown ya glabrata as well as MDR pathogens Send repeat genital culture If ya glabrata grows again she would need a repeat course of amphotericin vaginal inserts #Hypothyroidism TSH in June 2024 was WNL Continue Synthroid Disposition: Continued stay on MedSurg with telemetry VTE PPx: Will add on Lovenox given negative MRCP findings Admission and Anticipated Discharge Date Admission Date: October 14, 2024 Supervising Physician Co-Signing Physician Notes Attending Attestation - Chart reviewed, care plan d/w PA Jose Antonio Brito. I agree w/ the robbins components of his documentation. Obtain GI consult for ongoing right-sided abdominal pain of undetermined etiology. Gastric in etiology? non-GI? Ubaldo Chi MD Subjective Mrs. Everett reports she is still feeling sick this morning. She slept okay, but woke up with the back of her head drenched in sweat. She also said she felt feverish overnight with chills. Additionally, she is having right scapular pain/pain between the shoulder blades. Patient last had food yesterday morning (some toast), but has not had anything to eat since. She reports she is still having right upper quadrant pain this morning, as well as some nausea. The pain has been progressively worsening since Thursday/ of this past week. She does report that the pain medicine given yesterday helped. Additionally, she reports she was having yellow, "water like" diarrhea a couple days ago, but she did have a formed bowel movement yesterday morning. Patient does have a history of IBS, but reports that this does not feel like any prior episodes of IBS. She also notes that she had her gallbladder removed years ago. ROS: Patient endorses fever, chills, night sweats, presyncope, RUQ pain, nausea, diarrhea, and 1 episode of SOB from wheezing (resolved prior to admission). Patient denies chest pain, chest palpitations, pleuritic CP, cough, SOB at rest, vomiting, or blood in the urine or stool. Review of Systems Review of Systems: See HPI above Physical Exam Physical Exam: General: no acute distress; anxious; non-toxic appearing; cooperative; SpO2 97% on RA HEENT: normocephalic, atraumatic; no scleral icterus; PERRLA; vision and hearing intact Neck: supple; trachea midline Skin: warm, dry without signs of tenting; no cyanosis; no rashes, bruising, lesions, or erythema noted CV: chest wall NTP; RRR; S1/S2 normal; no murmurs/rubs/gallops; pulses intact and symmetric at radial, DP, and PT Lungs: no acute respiratory distress; symmetrical chest wall expansion; clear breath sounds across all lung wright w/o adventitious sounds; no wheezing ABD: Soft, RUQ is TTP; BS present; no rebound/guarding; no distention; no rashes or bruising on the abdomen or flanks bilaterally Back: Superficial pain, reproducible with palpation between the shoulder blades; lower spine NTP MSK: no tics or fasciculations; no edema noted in the LEs b/l, nonerythematous Neuro: A&Ox3; normal mood and affect; fluent speech; no focal deficits; sensation intact and symmetric in all EXTR bilaterally Results & Data Results & Data Vital Signs (Past 12 Hours) Vital Signs Temp Pulse Pulse Resp BP Pulse Ox Pulse Ox 10/15/24 08:01 36.4 C L 67 18 148/76 H 97 10/15/24 03:56 36.7 C 70 18 144/74 H 97 10/15/24 00:11 61 10/14/24 21:48 36.7 C 63 16 153/82 H 96 10/14/24 21:46 97 O2 Del Method O2 Del Method 10/15/24 08:01 Room Air 10/15/24 03:56 Room Air 10/15/24 00:11 10/14/24 21:48 Room Air 10/14/24 21:46 Room Air PG Care Time/CCT Total # of Minutes Spent Total Time Spent with Patient: Total time spent is greater than 50% in coordination of care (as documented) at patient's floor/unit and/or counseling patient: Coding [place] [address] SUB INP/OBS CARE 2/35MIN Patient Type Established Medical Decision Making Moderate Complexity Diagnoses RUQ abdominal pain R10.11 Abnormal findings on imaging of biliary tract R93.2 Chills R68.83 Vulvar burning N94.89 Recurrent UTI N39.0 Anemia D64.9
--- NOTE | 2024-10-15 15:12 | Magnetic Resonance Report ---
MRCP CLINICAL HISTORY: RUQ pain, abnl CT a/p with biliary dilatation. TECHNIQUE: Utilizing a 3 [place] magnet and dedicated coil, multiplanar, multiecho imaging of the upper abdomen was performed utilizing heavily T2 weighted pulsing sequences without IV contrast. COMPARISON STUDY: CT of the abdomen and pelvis October 14, 2024. Right upper quadrant ultrasound August 16, 2023. MRCP April 14, 2023. FINDINGS: Biliary ductal dilatation is unchanged since MRCP of April 14, 2023. The common bile duct measures 1 cm in caliber. This is likely related to cholecystectomy. No common bile duct calculi are identified although the 3D MRCP sequence is compromised by motion artifact. No hepatic lesions are id entified on unenhanced exam. Unenhanced images of the adrenal glands, kidneys and pancreas are unrema rkable. There is no abdominal ascites or lymphadenopathy. Caliber of visualized small and large bowel are normal. There is no pancreatic ductal dilatation. IMPRESSION: 1. Stable mild biliary ductal dilatation since MRCP of April 14, 2023. This is likely related to cho lecystectomy. No common bile duct calculi identified. Exam mildly compromised by motion artifact. 2. No pancreatic ductal dilatation. ACT 112: Negative or not required by law. Electronically signed by: Americo Joya M.D. 10/15/2024 3:10 PM
[2024-10-15] MEDS: PANTOprazole 40 MG/10 ML SYR IV ONE (17:56)
--- NOTE | 2024-10-15 19:38 | XRay Report ---
EXAM: Portable AP chest radiograph TECHNIQUE: AP portable radiograph of the chest was obtained. INDICATION: Shortness of breath Comparison: Chest radiograph March 23, 2024 FINDINGS: LINES and TUBES: None CARDIOVASCULAR: Cardiac silhouette is stably and mildly enlarged in size. Atherosclerosis of the thoracic aorta. LUNGS/PLEURA: Mild pulmonary vascular congestion is similar to the previous examination. Peribronchial cuffing that may be due to reactive small airways disease versus bronchiolitis. No focal consolidation identified. No significant pleural fluid. Similar minimal blunting of the left costophrenic angle. No discernible pneumothorax. OSSEOUS/OTHER: No displaced acute osseous process identified. IMPRESSION: No focal consolidation is identified. Peribronchial cuffing that may be due to reactive small airways disease versus bronchiolitis. Electronically signed by Jose Chung 10-15-2024 7:38 PM
[2024-10-16 06:21] LABS: Hematocrit (blood only) 32.4 % (37.0-47.0); Hemoglobin 10.4 g/dl (12.0-16.0); Mean Corpuscular Hemoglobin 28.2 pg (25.0-34.0); Mean Corpuscular Volume 87.8 fL (80.0-100.0); Platelet Count 183 K/uL (130-400); RDW Standard Deviation 47.1 fL (36.4-46.3); Red Blood Count 3.69 M/uL (4.20-5.40); White Blood Count 4.71 K/ul (4.8-10.8)
[2024-10-16 06:37] LABS: Alanine Aminotransferase 13.0 U/L (7-52); Albumin Globulin Ratio 1.4 (0.9-2); Alkaline Phosphatase 34.0 U/L (34-104); Anion Gap 3.0 (3-11); Bilirubin,Total 0.5 mg/dl (0.2-1.0); Blood Urea Nitrogen 7.0 mg/dl (6-23); Calcium 8.2 mg/dl (8.6-10.3); Carbon Dioxide 29.0 mmol/L (21-32); Chloride 110.0 mmol/L (98-107); Creatinine Clr Calc Pharmacy 70.6 ml/min; Globulin 2.3 gm/dl (2.5-4.0); Glucose 84.0 mg/dl (70-99(Fasting)); Magnesium 1.8 mg/dl (1.7-2.4); Potassium 3.8 mmol/L (3.5-5.1); Sodium 142.0 mmol/L (136-145); Total Protein 5.5 gm/dl (6.0-8.3)
[2024-10-16] MEDS: PANTOprazole 40 MG/10 ML SYR IV SCH (07:54)
[2024-10-16] MEDS: ENOXAPARIN INJ 40 MG/0.4 ML SYR SQ SCH (07:58)
[2024-10-16 08:17] LABS: Adenovirus F 40/41 PCR Not Detected (NotDetected); Campylobacter PCR Not Detected (NotDetected); Enteroaggregative E.coli(EAEC) Not Detected (NotDetected); Shiga-like Toxin E.coli (STEC) Not Detected (NotDetected); Vibrio species PCR Not Detected (NotDetected)
--- NOTE | 2024-10-16 08:36 | Gastrointestinal Consultation ---
Date of Consultation October 16, 2024 Assessment & Plan (1) RUQ abdominal pain: Doubt biliary tract pathology as cause for abdominal pain. LFTs are normal and MRCP imaging shows stable bile duct dilatation related to prior cholecystectomy. Suspect the pain could be related to colonic ileus seen on CT scan possibly secondary to an underlying enterocolitis in light of history of nausea and diarrhea. Continue to monitor symptoms and exam. (2) Abnormal computerized axial tomography of liver: Biliary duct dilatation consistent with prior cholecystectomy. Doubt biliary pathology as cause for clinical presentation. (3) Diarrhea: Presentation most consistent with enterocolitis stool studies have been negative but recommending checking for C. difficile. CT scan shows some dilatation of the proximal colon which may be contributing to some of her symptoms of pain. History of Present Illness Reason for Consultation: Abdominal pain, nausea and diarrhea abnormal imaging of the abdomen Attending Physician: Ubaldo Chi MD History of Present Illness Patient presents with a 1 week history of nausea diarrhea and right upper abdominal pain. She has had chills but no documented fever. No recent travel no recent antibiotic use. History of IBS fibromyalgia and renal cancer status posttreatment. Prior history of cholecystectomy. CT scan of the abdomen showed mildly dilated right colon and mildly dilated biliary tree. Stool studies have been negative. Has had H. pylori in the past that was treated. Allergies Allergy/AdvReac Type Severity Reaction Status Date / Time bacitracin Allergy Intermediate Hives Verified 10/14/24 16:09 [From Neosporin ([id number])] famotidine Allergy Intermediate Hives Verified 10/14/24 16:09 neomycin Allergy Intermediate Hives Verified 10/14/24 16:09 [From Neosporin ([id number])] polymyxin B Allergy Intermediate Hives Verified 10/14/24 16:09 [From Neosporin ([id number])] amoxicillin [From Augmentin] AdvReac Intermediate Caused C. Verified 10/14/24 16:09 diff clavulanic acid AdvReac Intermediate Caused C. Verified 10/14/24 16:09 [From Augmentin] diff olmesartan AdvReac Intermediate Diarrhea Verified 10/14/24 16:09 vilanterol AdvReac Intermediate Swelling Verified 10/14/24 16:09 [From Breo Ellipta] of legs/feet and GI Upset levofloxacin AdvReac Unknown tendinopathy Verified 10/14/24 16:09 - undetermined if med was cause. Home Medications Medication Instructions Recorded Confirmed Type vitamin E 268 mg (400 unit) capsule 400 unit PO QAM 09/06/18 10/14/24 History inhalational spacing device #1 ea 09/22/18 09/14/24 Rx (Vortex Holding Chamber) ascorbate calcium (vitamin C) 500 1,000 mg PO QAM 08/06/20 10/14/24 History mg tablet albuterol sulfate 90 mcg/actuation 2 puff inhalation Q4H PRN 05/19/22 10/14/24 Rx aerosol inhaler (Ventolin HFA) Shortness Of Breath Or Wheezing #18 grams bupropion HCl 150 mg tablet,12 hr 150 mg PO BID #180 ea 07/11/22 10/14/24 Rx sustained-release fluticasone propionate 50 1 spray intranasal DAILY 30 days 07/22/22 10/14/24 Rx mcg/actuation nasal #48 grams spray,suspension atorvastatin 20 mg tablet 20 mg PO HS #90 tabs 11/13/22 10/14/24 Rx levocetirizine 5 mg tablet 5 mg PO HS 02/13/23 10/14/24 History levothyroxine 88 mcg tablet 88 mcg PO QAM 02/13/23 10/14/24 History pantoprazole 40 mg tablet,delayed 40 mg PO BID 04/09/23 10/14/24 History release (Protonix) gabapentin 100 mg capsule 100 mg PO BID #30 caps 04/19/23 10/14/24 Rx budesonide-formoterol HFA 80 2 inh inhalation BID #30.59 grams 05/07/23 10/14/24 Rx mcg-4.5 mcg/actuation aerosol inhaler (Symbicort) activated charcoal 260 mg capsule 260 mg PO QDL 06/18/23 10/14/24 History coQ10 (ubiquinol) 100 mg capsule 100 mg PO QAM 06/18/23 10/14/24 History peppermint oil 90 mg 180 mg PO BID 06/18/23 10/14/24 History capsule,delayed,extended release (IBgard) Saccharomyces boulardii 250 mg 250 mg PO BID #20 caps 06/26/23 10/14/24 Rx capsule (Florastor) sucralfate 100 mg/mL oral 10 ml PO UD PRN stomach irritation 07/01/23 10/14/24 History suspension (Carafate) cyclosporine 0.09 % eye drops in a 1 drp OPB BID 08/22/23 10/14/24 History dropperette (Cequa) cholecalciferol (vitamin D3) 50 50 mcg PO QAM 03/23/24 10/14/24 History mcg (2,000 unit) tablet (Vitamin D3) dicyclomine 10 mg capsule 10 mg PO TID PRN Abd pain 03/23/24 10/14/24 History estradiol 0.01% (0.1 mg/gram) 0.25 appful vaginal 3XWK 03/23/24 10/14/24 History vaginal cream nystatin-triamcinolone 100,000 1 applic topical BID PRN 03/23/24 10/14/24 History unit/gram-0.1 % topical ointment Flare/Irritation tamsulosin 0.4 mg capsule 0.4 mg PO QAM 03/23/24 10/14/24 History fluconazole 150 mg tablet 150 mg PO Q48H 6 days #3 tabs 04/21/24 10/14/24 Rx ondansetron 4 mg disintegrating 4 mg PO Q6H PRN nausea and 08/12/24 10/14/24 Rx tablet vomiting #30 tabs nystatin-triamcinolone 100,000 1 applic topical BID PRN SKIN 10/14/24 10/14/24 History unit/gram-0.1 % topical ointment IRRITATIONS propranolol 60 mg capsule,24 60 mg PO HS 10/15/24 10/15/24 History hr,extended release Patient History Medical History Urinary tract infection abx completed 06/28 or 06/30/23 - feeling better, all symptoms gone except some pressure. Pre op edu rev. Diverticulosis hx Gastritis History of gastric polyp History of colon polyps Vertigo none for over a month Kidney stones current Renal mass [place] [facility] aware, monitoring Paresthesia of upper extremity sometimes arms Diarrhea current : on occ /finished abx recently. History of Helicobacter pylori infection Hx of Clostridium difficile infection Remote hx approximately 30 years ago History of COVID-19 03/19/2023 ([place], [place]) > resolved 11/2021- fatigue, congestion, cough, sore throat > resolved pt reports has had a total of 3 times : 1st time in 2019 ? Hx of melanoma of skin Pulmonary embolism Remote hx approximately 30 years ago, after SUMAN (blood thinners x 3 months) Acute diverticulitis listed in differential diagnosis 04/14/23 by hospitalist, not included on discharge summary Sciatica hx COPD (chronic obstructive pulmonary disease) well controlled per pt, rare res inh use Mild reactive airways disease Depression with anxiety Esophageal reflux Fibromyalgia Hypertension Irritable bowel syndrome Hypothyroidism Hyperlipidemia History of asthma Surgical History History of lithotripsy History of cystoscopy Hx of vascular surgery Dr Morales [facility] 07/2022 Distal LT GSV accessed under ultrasound guidance with placement of 4Fr sheath History of esophagogastroduodenoscopy (EGD) Hx of cataract extraction Hx of melanoma excision stomach S/P dilation and curettage History of cryosurgery History of colonoscopy (10/12/19) 4 polyps removed, [facility], Dr. Roque S/P tonsillectomy S/P sinus surgery S/P SUMAN-BSO S/P laparoscopic cholecystectomy S/P appendectomy Family History Mother Diabetes Father Heart disease Other Asthma Cancer Gallbladder disease Hypertension Stroke Denies family history of Ovarian cancer Myocardial infarction Breast cancer Colorectal cancer Colonic polyp Uterine cancer Social History Smoking Status: Former smoker Tobacco Type: Cigarettes Age Started Using Tobacco: 18; Age Quit Using Tobacco: 58; Smoking End Date: 2017; Second Hand Exposure: No; Do You Dip or Chew Tobacco: No; Hx Alcohol Use: No Hx Substance Use: No Preferred Language: Sinhala Communication Ability: Effective Visual Impairment: No Limitations Hearing Ability: Normal Alpine Patroller Required: No Beliefs That Will Affect Care: None marital status: Current Living Situation: Spouse Current Living Situation Comment: home with current occupational status: disabled Other Information That Helps Us Care for You: No Feels Safe at Home: Yes Safety Concerns: Feels Safe At This Time Childhood Exposure to Second-Hand Smoke: Yes Dental Care, Regularly: Yes Seatbelt Use: always Sunscreen Use: Yes Do you think of yourself as: straight/heterosexual Sexual Activity: has been sexually active within the last 12 months Assistive Devices: Denture - Upper Assistive Devices Comment: partial upper dentures Review of Systems Review of Systems: No fever No chills No SOB No CP Right sided abdominal pain and nausea Physical Exam Physical Exam: Eyes; anicteric HENT No masses Chest clear to A Cor S1, S2 physiologic Abd: soft generalized tenderness greatest on right upper abdomen area no rebound no guarding no masses Ext no edema Results & Data Vital Signs (Past 12 Hours) Vital Signs Temp Pulse Pulse Resp BP BP Pulse Ox 10/16/24 07:50 36.9 C 87 18 133/79 92 10/16/24 04:03 36.7 C 62 18 124/72 97 10/16/24 01:37 56 L 10/15/24 23:46 36.4 C L 64 18 144/76 H 97 10/15/24 21:46 Pulse Ox O2 Del Method O2 Del Method 10/16/24 07:50 Room Air 10/16/24 04:03 Room Air 10/16/24 01:37 10/15/24 23:46 Room Air 10/15/24 21:46 97 Room Air Laboratory Results Laboratory Results - last 48 hr 10/14/24 10/14/24 10/14/24 14:25 14:32 19:15 WBC 7.04 RBC 4.70 Hgb 12.8 Hct 40.3 MCV 85.7 MCH 27.2 MCHC 31.8 L RDW Std Deviation 46.4 H RDW Coeff of Sánchez 14.9 H Plt Count 228 MPV 9.1 L Immature Gran % (Auto) 0.4 Neut % (Auto) 67.0 Lymph % (Auto) 24.4 Dickinson % (Auto) 7.2 Eos % (Auto) 0.3 Baso % (Auto) 0.7 Neut # (Auto) 4.71 Lymph # (Auto) 1.72 Dickinson # (Auto) 0.51 Eos # (Auto) 0.02 Baso # (Auto) 0.05 Immature Gran # (Auto) 0.03 Sodium 139 Potassium 3.7 Chloride 105 Carbon Dioxide 28 Anion Gap 6 BUN 13 Creatinine 0.82 Est Cr Clr Drug Dosing 66.6 eGFR 78.84 BUN/Creatinine Ratio 15.9 Glucose 96 Lactate Calcium 9.4 Magnesium Total Bilirubin 0.6 AST 17 ALT 16 Alkaline Phosphatase 48 Troponin I High Sens 2.4 C-Reactive Protein < 0.50 Total Protein 7.3 Albumin 3.8 Globulin 3.5 Albumin/Globulin Ratio 1.1 Lipase 15 Urine Color Yellow Urine Appearance Clear Urine pH 6.0 Ur Specific [place] 1.010 Urine Protein Negative Urine Glucose (UA) Negative Urine Ketones Negative Urine Blood Negative Urine Nitrite Negative Urine Bilirubin Negative Urine Urobilinogen Negative Ur Leukocyte Esterase Negative Urine Comment Stl C. cayetanensis PCR Stool Rotavirus A PCR Stl Adenov F 40 PCR Stool Astrovirus (PCR) Stool Campylobacter PCR Stool Cryptosporidium PCR Stl E.coli Shiga Tox PCR Stl Enterotoxigenic E PCR Stool EPEC (PCR) Stool EAEC (PCR) Stl E. histolytica PCR Stool Giardia Lamblia PCR Stool Salmonella PCR Stool Sapovirus (PCR) Stl P. shigelloides PCR Stl Shigella/EIEC PCR St Y.enterocolitica PCR Stool Vibrio (PCR) Stl Vibrio cholerae PCR Stl Norovirus GI/GII PCR Anaplasma Smear Babesia Smear Lyme Disease Screen Negative SARS-CoV-2 (PCR) NEGATIVE Influenza Type A (PCR) Negative Influenza Type B (PCR) Negative RSV (RT-PCR) Negative 10/14/24 10/15/24 10/16/24 19:41 06:48 05:57 WBC 4.48 L 4.71 L RBC 3.77 L 3.69 L Hgb 10.4 L 10.4 L Hct 33.0 L 32.4 L MCV 87.5 87.8 MCH 27.6 28.2 MCHC 31.5 L 32.1 RDW Std Deviation 48.0 H 47.1 H RDW Coeff of Sánchez 15.0 H 14.6 H Plt Count 189 183 MPV 9.6 9.3 L Immature Gran % (Auto) Neut % (Auto) Lymph % (Auto) Dickinson % (Auto) Eos % (Auto) Baso % (Auto) Neut # (Auto) Lymph # (Auto) Dickinson # (Auto) Eos # (Auto) Baso # (Auto) Immature Gran # (Auto) Sodium 144 142 Potassium 4.1 3.8 Chloride 113 H 110 H Carbon Dioxide 29 29 Anion Gap 2 L 3 BUN 13 7 Creatinine 0.80 0.78 Est Cr Clr Drug Dosing 68.5 70.6 eGFR 81.21 83.72 BUN/Creatinine Ratio 16.3 9.0 L Glucose 108 H 84 Lactate 0.8 Calcium 7.9 L 8.2 L Magnesium 1.8 1.8 Total Bilirubin 0.4 0.5 AST 16 14 ALT 13 13 Alkaline Phosphatase 33 L 34 Troponin I High Sens C-Reactive Protein Total Protein 5.3 L D 5.5 L Albumin 3.1 L 3.2 L Globulin 2.2 L 2.3 L Albumin/Globulin Ratio 1.4 1.4 Lipase Urine Color Urine Appearance Urine pH Ur Specific [place] Urine Protein Urine Glucose (UA) Urine Ketones Urine Blood Urine Nitrite Urine Bilirubin Urine Urobilinogen Ur Leukocyte Esterase Urine Comment Stl C. cayetanensis PCR Stool Rotavirus A PCR Stl Adenov F PCR Stool Astrovirus (PCR) Stool Campylobacter PCR Stool Cryptosporidium PCR Stl E.coli Shiga Tox PCR Stl Enterotoxigenic E PCR Stool EPEC (PCR) Stool EAEC (PCR) Stl E. histolytica PCR Stool Giardia Lamblia PCR Stool Salmonella PCR Stool Sapovirus (PCR) Stl P. shigelloides PCR Stl Shigella/EIEC PCR St Y.enterocolitica PCR Stool Vibrio (PCR) Stl Vibrio cholerae PCR Stl Norovirus GI/GII PCR Anaplasma Smear See Comment Babesia Smear See Comment Lyme Disease Screen SARS-CoV-2 (PCR) Influenza Type A (PCR) Influenza Type B (PCR) RSV (RT-PCR) 10/16/24 06:13 WBC RBC Hgb Hct MCV MCH MCHC RDW Std Deviation RDW Coeff of Sánchez Plt Count MPV Immature Gran % (Auto) Neut % (Auto) Lymph % (Auto) Dickinson % (Auto) Eos % (Auto) Baso % (Auto) Neut # (Auto) Lymph # (Auto) Dickinson # (Auto) Eos # (Auto) Baso # (Auto) Immature Gran # (Auto) Sodium Potassium Chloride Carbon Dioxide Anion Gap BUN Creatinine Est Cr Clr Drug Dosing eGFR BUN/Creatinine Ratio Glucose Lactate Calcium Magnesium Total Bilirubin AST ALT Alkaline Phosphatase Troponin I High Sens C-Reactive Protein Total Protein Albumin Globulin Albumin/Globulin Ratio Lipase Urine Color Urine Appearance Urine pH Ur Specific [place] Urine Protein Urine Glucose (UA) Urine Ketones Urine Blood Urine Nitrite Urine Bilirubin Urine Urobilinogen Ur Leukocyte Esterase Urine Comment Stl C. cayetanensis PCR Not Detected Stool Rotavirus A PCR Not Detected Stl Adenov F PCR Not Detected Stool Astrovirus (PCR) Not Detected Stool Campylobacter PCR Not Detected Stool Cryptosporidium PCR Not Detected Stl E.coli Shiga Tox PCR Not Detected Stl Enterotoxigenic E PCR Not Detected Stool EPEC (PCR) Not Detected Stool EAEC (PCR) Not Detected Stl E. histolytica PCR Not Detected Stool Giardia Lamblia PCR Not Detected Stool Salmonella PCR Not Detected Stool Sapovirus (PCR) Not Detected Stl P. shigelloides PCR Not Detected Stl Shigella/EIEC PCR Not Detected St Y.enterocolitica PCR Not Detected Stool Vibrio (PCR) Not Detected Stl Vibrio cholerae PCR Not Detected Stl Norovirus GI/GII PCR Not Detected Anaplasma Smear Babesia Smear Lyme Disease Screen SARS-CoV-2 (PCR) Influenza Type A (PCR) Influenza Type B (PCR) RSV (RT-PCR) Diagnostic Findings Chest X-Ray 10/15/24 17:11 EXAM: Portable AP chest radiograph TECHNIQUE: AP portable radiograph of the chest was obtained. INDICATION: Shortness of breath Comparison: Chest radiograph March 23, 2024 FINDINGS: LINES and TUBES: None CARDIOVASCULAR: Cardiac silhouette is stably and mildly enlarged in size. Atherosclerosis of the thoracic aorta. LUNGS/PLEURA: Mild pulmonary vascular congestion is similar to the previous examination. Peribronchial cuffing that may be due to reactive small airways disease versus bronchiolitis. No focal consolidation identified. No significant pleural fluid. Similar minimal blunting of the left costophrenic angle. No discernible pneumothorax. OSSEOUS/OTHER: No displaced acute osseous process identified. IMPRESSION: No focal consolidation is identified. Peribronchial cuffing that may be due to reactive small airways disease versus bronchiolitis. Electronically signed by Jose Chung 10-15-2024 7:38 PM Cholangiopancreatography MRI 10/15/24 18:36 MRCP CLINICAL HISTORY: RUQ pain, abnl CT a/p with biliary dilatation. TECHNIQUE: Utilizing a 3 [place] magnet and dedicated coil, multiplanar, multiecho imaging of the upper abdomen was performed utilizing heavily T2 weighted pulsing sequences without IV contrast. COMPARISON STUDY: CT of the abdomen and pelvis October 14, 2024. Right upper quadrant ultrasound August 16, 2023. MRCP April 14, 2023. FINDINGS: Biliary ductal dilatation is unchanged since MRCP of April 14, 2023. The common bile duct measures 1 cm in caliber. This is likely related to cholecystectomy. No common bile duct calculi are identified although the 3D MRCP sequence is compromised by motion artifact. No hepatic lesions are identified on unenhanced exam. Unenhanced images of the adrenal glands, kidneys and pancreas are unremarkable. There is no abdominal ascites or lymphadenopathy. Caliber of visualized small and large bowel are normal. There is no pancreatic ductal dilatation. IMPRESSION: 1. Stable mild biliary ductal dilatation since MRCP of April 14, 2023. This is likely related to cholecystectomy. No common bile duct calculi identified. Exam mildly compromised by motion artifact. 2. No pancreatic ductal dilatation. ACT 112: Negative or not required by law. Electronically signed by: Americo Joya M.D. 10/15/2024 3:10 PM PG Care Time/CCT Total # of Minutes Spent Total Time Spent with Patient: Total time spent is greater than 50% in coordination of care (as documented) at patient's floor/unit and/or counseling patient: Coding Level of Care Code 86873 INT INP/OBS CARE 2/55MIN Diagnoses RUQ abdominal pain R10.11 Abnormal computerized axial tomography of liver R93.2 Diarrhea R19.7
[2024-10-16] MEDS: SUCRALFATE 1 GM TAB PO STA (11:11)
[2024-10-16 12:33] LABS: Cdiff Toxin B Gene (2yr or >) Negative Cdiff Gene (Neg)
--- NOTE | 2024-10-16 13:38 | Electrocardiogram Report ---
Test Reason : Blood Pressure : */* mmHG Vent. Rate : 66 BPM Atrial Rate : 66 BPM P-R Int : 158 ms QRS Dur : 88 ms QT Int : 388 ms P-R-T Axes : 54 33 51 degrees QTcB Int : 406 ms Sinus rhythm with Premature atrial complexes Otherwise normal ECG When compared with ECG of 23-Mar-2024 08:04, Premature atrial complexes are now Present Confirmed by Jose Miguel Sanchez ([id number]) on 10/16/2024 1:37:40 PM Referred By: REFERRED SELF Confirmed By: Jose Miguel Sanchez
--- NOTE | 2024-10-16 14:13 | Hospitalist Progress Note ---
Date of Service October 16, 2024 Assessment & Plan (1) Enterocolitis: (2) RUQ abdominal pain: (3) Abnormal findings on imaging of biliary tract: (4) Chills: (5) Vulvar burning: (6) Recurrent UTI: (7) Anemia: Plan This patient is a 64yo female with PMH of recurrent UTIs, prior kidney stones, cholecystectomy, fibromyalgia, right-sided kidney cancer s/p ablation procedure, and remote h/o PE who presents with 1-2 weeks of chills and night sweats. Since then she has had progressive right upper quadrant abdominal pain, nausea, poor appetite, and some episodes of yellow loose stool/diarrhea. #RUQ abdominal pain | chills | fatigue | Entercolitis Abnormal CT imaging of the biliary tracts, her RUQ pain, chills, etc are all concerning for biliary tract disease Oddly her LFTs remain stable on 10/14 and 10/15 Lipase, lactate, CRP WNL Lyme, Anaplasma, babesiosis negative COVID, flu, RSV negative Doubt pyelonephritis - UA normal, and urine cx from 10/13 is negative MRCP revealed no pancreatic ductal dilation, no common bile duct calculi PCR stool and C. difficile negative on 10/16 Advance diet as tolerated (currently on full liquid diet on 10/16, but difficulty tolerating/abdominal bloating) GI consult appreciated Continued RUQ pain despite with negative workup/negative MRCP findings Will treat as enterocolitis; no planned EGD at this time Sucralfate 1 g p.o. twice daily Protonix 40 mg IV daily Acetaminophen 1000 mg IV PRN for pain/fever IV antiemetics PRN Antibiotics deferred at this time #Anemia Hgb trend 12.8 -> 10.4 -> 10.4; stable Suspect initial drop due to volume dilution No active bleeding appreciated on clinical exam Trend CBC #Wheezing (resolved) Patient does not have any respiratory symptoms at this time, she does note an episode of wheezing prior to arrival SpO2 91% on RA on the evening of 10/15 (lower than baseline) CXR ordered to rule out development of occult right lower lobe pneumonia #H/o vaginal candidiasis Prior genital cultures have grown ya glabrata as well as MDR pathogens Send repeat genital culture If ya glabrata grows again she would need a repeat course of amphotericin vaginal inserts #Hypothyroidism TSH in June 2024 was WNL Continue Synthroid #IBS Patient reports her current symptoms are not consistent with prior episodes of IBS, but does endorse occasional abdominal "spasms" Continue Bentyl TID PRN Disposition: Continued stay on MedSurg with telemetry VTE PPx: Lovenox 40 mg SQ q24h Admission and Anticipated Discharge Date Admission Date: October 14, 2024 Supervising Physician Co-Signing Physician Notes Attending Attestation - Chart reviewed, care plan d/w JOSE Perkins. I agree w/ the robbins components of her documentation. Ubaldo Chi MD Subjective Mrs. Everett reports that she ate broth last night for dinner, and immediately had "yellow" diarrhea afterwards. She does report she had a history of C. difficile long ago, but has not been on any recent antibiotics. No bright red blood in her diarrhea. The broth made her feel bloated, and worsened her right upper quadrant abdominal pain approximately 15 to 20 minutes after eating. She feels like the broth "went right through her". Patient does have a history of H. pylori in 2022, then again this past April. Most recent EGD was approximately 1 year ago. She is amenable to trying a full liquid diet again today. ROS: Patient endorses RUQ abdominal pain, nausea, abdominal bloating, and yellow diarrhea. Patient denies fever, chills, night sweats (resolved), chest pain, chest palpitations, pleuritic CP, cough, SOB at rest, vomiting, or blood in the urine or stool. Review of Systems Review of Systems: See HPI above Physical Exam Physical Exam: General: no acute distress; daughter at bedside; non-toxic appearing; cooperative; SpO2 98% on RA HEENT: normocephalic, atraumatic; no scleral icterus; PERRLA; vision and hearing intact Neck: supple; trachea midline Skin: warm, dry without signs of tenting; no cyanosis; no rashes, bruising, lesions, or erythema noted CV: chest wall NTP; RRR; S1/S2 normal; no murmurs/rubs/gallops; pulses intact and symmetric at radial, DP, and PT Lungs: no acute respiratory distress; symmetrical chest wall expansion; clear breath sounds across all lung wright w/o adventitious sounds; no wheezing ABD: Soft, RUQ is TTP; right flank TTP just below the rib cage; BS present; no rebound/guarding; no distention; no rashes or bruising on the abdomen or flanks bilaterally MSK: no tics or fasciculations; no edema noted in the LEs b/l, nonerythematous Neuro: A&Ox3; normal mood and affect; fluent speech; no focal deficits; sensation intact and symmetric in all EXTR bilaterally Results & Data Results & Data Vital Signs (Past 12 Hours) Vital Signs Temp Pulse Pulse Resp BP Pulse Ox O2 Del Method 10/16/24 11:28 36.4 C L 56 L 20 126/73 98 Room Air 10/16/24 09:29 61 10/16/24 07:50 36.9 C 87 18 133/79 92 Room Air 10/16/24 04:03 36.7 C 62 18 124/72 97 Room Air PG Care Time/CCT Total # of Minutes Spent Total Time Spent with Patient: Total time spent is greater than 50% in coordination of care (as documented) at patient's floor/unit and/or counseling patient: C[place] [address] SUB INP/OBS CARE 3/50MIN Patient Type Established Medical Decision Making High Complexity Diagnoses Enterocolitis K52.9 RUQ abdominal pain R10.11 Abnormal findings on imaging of biliary tract R93.2 Chills R68.83 Vulvar burning N94.89 Recurrent UTI N39.0 Anemia D64.9
[2024-10-16] MEDS: SUCRALFATE 1 GM TAB PO SCH (21:31)
[2024-10-16] MEDS: ESTRACE VAG CREAM 0.01% 42.5 GM PV SCH (22:52)
[2024-10-17 07:20] LABS: Hematocrit (blood only) 34.2 % (37.0-47.0); Hemoglobin 10.5 g/dl (12.0-16.0); Immature Granulocytes # (auto) 0.03 K/uL (0.01-0.20); Immature Granulocytes % (auto) 0.7 %; Mean Corpuscular Hemoglobin 27.1 pg (25.0-34.0); Mean Corpuscular Volume 88.1 fL (80.0-100.0); Platelet Count 194 K/uL (130-400); RDW Standard Deviation 46.5 fL (36.4-46.3); Red Blood Count 3.88 M/uL (4.20-5.40); White Blood Count 4.32 K/ul (4.8-10.8)
[2024-10-17 07:42] LABS: Anion Gap 5.0 (3-11); Blood Urea Nitrogen 5.0 mg/dl (6-23); Calcium 8.4 mg/dl (8.6-10.3); Carbon Dioxide 29.0 mmol/L (21-32); Chloride 108.0 mmol/L (98-107); Creatinine Clr Calc Pharmacy 78.6 ml/min; Glucose 78.0 mg/dl (70-99(Fasting)); Potassium 3.5 mmol/L (3.5-5.1); Sodium 142.0 mmol/L (136-145)
--- NOTE | 2024-10-17 08:26 | Hospitalist Progress Note ---
Date of Service October 17, 2024 Assessment & Plan (1) Enterocolitis: (2) RUQ abdominal pain: (3) Abnormal findings on imaging of biliary tract: (4) Chills: (5) Vulvar burning: (6) Recurrent UTI: (7) Anemia: Plan This patient is a 64yo female with PMH of recurrent UTIs, prior kidney stones, cholecystectomy, fibromyalgia, right-sided kidney cancer s/p ablation procedure, and remote h/o PE who presents with 1-2 weeks of chills and night sweats. Since then she has had progressive right upper quadrant abdominal pain, nausea, poor appetite, and some episodes of yellow loose stool/diarrhea. #RUQ abdominal pain | chills | fatigue | Enterocolitis- abnormal CT imaging of the biliary tracts, her RUQ pain, chills, etc are all concerning for biliary tract disease. Interestingly thouogh LFTs wnl /-10/15, lipase and lactic as well as CRP wnl. Checked Lyme, anaplasmosis, babesia - negative. COVID, Flu, RSV negative. MRCP w/ no pancreatic ductal dilatation, no CBD bile duct calculi Stool PCR, cdiff negative 10/16 Diarrhea slowing per report - monitor w/ abx. Remains on probiotic Given liquid diet 10/16 but issues with bloating and made NPO at midnight. IVF w/ LR ordered while NPO and message send to GI for discussion- can have clears today, NPO at midnight for EGD in AM -Prior hx H. Pylori, rec for testing sent to GI w/ EGD Continues on PPI, Carafate Tylenol, low dose diluadid, bentyl and zofran available as needed - Added xanax 0.25mg qid prn given prior benefit, also suspect aspect of anxiety contributing Monitor labs in AM/exam, f/u EGD results when available #Cystitis vs BV - chronic interstitial cystitis reported. Ongoing urinary type symptoms however UA not overly infected appearing. CTAP not noting urinary abn. Vaginal cx sent (patient reports only way priors grew) for reports of prior genital cx w/ ya glabrata and MDR pathogens (ESBL Klebsiella oxytoca, etc) and need for amphotericin for tx Cx w/ enterococcus - allergy listed for Augmentin but tolerated in the past --> starting Amoxicillin, also reports interstitial cystitis Monitor response to abx treatment. Remains on florastar for probiotic w/ hx cdiff (testing prior negative) #Anemia-Hgb trend 12.8 -> 10.4 -> 10.4 --> 10.5 on IVF and suspect aspect of dilutional from IVF. No bleeding reported and is on Lovenox SQ for DVT prophylaxis. BP/renal function stable and monitoring EGD in AM for eval #Wheezing (resolved) - prior report, CXR ordered and noted possible reactive small airway disease vs bronchitis. ?cough/referred pain to RUQ vs other. Eval as outlined. No wheezing on exam today and remains on RA. Encouraging use IS/monitoring #H/o vaginal candidiasis -Prior genital cultures have grown ya glabrata as well as MDR pathogens. Send repeat genital culture as abve, thankfully no glabrata/need for ampho vaginal inserts #Hypothyroidism -TSH in June 2024 was WNL, can repeat w/ AM labs. Continue usual synthroid #IBS Patient reports her current symptoms are not consistent with prior episodes of IBS, but does endorse occasional abdominal "spasms" Continue Bentyl TID PRN Dispo: continued inpatient stay, NPO for EGD in AM w/ Dr Freire. Further recs pending EGD Start amox for vaginal cx, monitoring response Low dose xanax for anxiety Admission and Anticipated Discharge Date Admission Date: October 14, 2024 Supervising Physician Co-Signing Physician Notes Attending Attestation - Chart reviewed, care plan d/w JOSE Perkins. I agree w/ the robbins components of her documentation. Appreciate [facility] assistance -- to have EGD tomorrow. Ubaldo Chi MD Subjective Evaluated this morning, ongoing right flank/right upper abdominal discomfort. Also reporting urinary/vaginal sx, prior tolerated augmentin without issue and typically takes probiotic with antbiotics. Endorses baseline interstitial cystitis. Discussed xanax given prior improvement, was on in the past but her PCP and GI provider have retired. Discussed will consider ongoing use. GI messaged to see about consideration for EGD, remains NPO at this time. Physical Exam Physical Exam: General: 64yo female sitting up in bed, NAD but mildly uncomfortable/reporting RUQ discomfort/R flank pain HEENT: head atraumatic, normocephalic, mm DRY, trachea midline Resp: even, unlabored, no wheezing/rales, on RA CV: RRR, no significant m/r/g, no pitting edema GI: +BS, slightly distended, +RUQ /flank tenderness, no guarding/rebound, soft, no bruising/ecchymosis no moreira MSK/Neuro: nonfocal, able to follow commands, not confused, no slurred speech/facial droop Psych: Alert/oriented, anxious at times Results & Data Results & Data Vital Signs (Past 12 Hours) Vital Signs Temp Pulse Pulse Resp BP BP Pulse Ox 10/17/24 08:20 36.8 C 55 L 18 145/78 H 98 10/17/24 07:35 62 10/17/24 04:28 36.7 C 68 18 131/68 96 10/16/24 23:26 36.5 C 52 L 18 132/77 95 10/16/24 22:59 56 L 10/16/24 21:32 60 O2 Del Method 10/17/24 08:20 Room Air 10/17/24 07:35 10/17/24 04:28 Room Air 10/16/24 23:26 Room Air 10/16/24 22:59 10/16/24 21:32 Laboratory Results 10/17/24 Range/Units 06:23 WBC 4.32 L (4.8-10.8) K/ul RBC 3.88 L (4.20-5.40) M/uL Hgb 10.5 L (12.0-16.0) g/dl Hct 34.2 L (37.0-47.0) % MCV 88.1 (80.0-100.0) fL MCH 27.1 (25.0-34.0) pg MCHC 30.7 L (32.0-36.0) g/dL RDW Std Deviation 46.5 H (36.4-46.3) fL RDW Coeff of Sánchez 14.6 H (11.5-14.5) % Plt Count 194 (130-400) K/uL MPV 9.5 (9.4-12.4) fL Immature Gran % (Auto) 0.7 % Neut % (Auto) 49.8 % Lymph % (Auto) 40.7 % [place] % (Auto) 7.4 % Eos % (Auto) 0.9 % Baso % (Auto) 0.5 % Neut # (Auto) 2.15 (1.40-6.50) K/uL Lymph # (Auto) 1.76 (1.20-3.40) K/uL [place] # (Auto) 0.32 (0.11-0.59) K/uL Eos # (Auto) 0.04 (0.00-0.50) K/uL Baso # (Auto) 0.02 (0.00-0.20) K/uL Immature Gran # (Auto) 0.03 (0.01-0.20) K/uL Sodium 142 (136-145) mmol/L Potassium 3.5 (3.5-5.1) mmol/L Chloride 108 H (98-107) mmol/L Carbon Dioxide 29 (21-32) mmol/L Anion Gap 5 (3-11) BUN 5 L (6-23) mg/dl Creatinine 0.71 (0.6-1.2) mg/dl Est Cr Clr Drug Dosing 78.6 ml/min eGFR 93.72 BUN/Creatinine Ratio 7.0 L (10-20) Glucose 78 (70-99(Fasting)) mg/dl Calcium 8.4 L (8.6-10.3) mg/dl PG Care Time/CCT Total # of Minutes Spent Total Time Spent with Patient: Total time spent is greater than 50% in coordination of care (as documented) at patient's floor/unit and/or counseling patient: Coding Level of Care Code 40508 SUB INP/OBS CARE 3/50MIN Diagnoses Enterocolitis K52.9 RUQ abdominal pain R10.11 Abnormal findings on imaging of biliary tract R93.2 Chills R68.83 Vulvar burning N94.89 Recurrent UTI N39.0 Anemia D64.9
[2024-10-17] MEDS: LACTATED RINGER'S 1,000 ML IV SCH (08:47)
[2024-10-17] MEDS: CHOLECALCIFEROL 125 MCG (5,000 UNITS) TAB PO SCH (08:50)
--- NOTE | 2024-10-17 09:57 | Gastroenterology Progress Note ---
Date of Service October 17, 2024 Assessment & Plan (1) Acute right flank pain: Plan: Patient continues with right flank pain. Diarrhea improved. Stool studies negative. No biliary findings on labs/imaging. Etiology of pain unclear at present. Will discuss further with attending direct mail marketer in order to best advise on a plan. Tentatively plan for EGD on 10/18/24. Admission and Anticipated Discharge Date Admission Date: October 14, 2024 Supervising Physician Co-Signing Physician Notes I saw and examined this patient with our nurse practitioner and agree with her assessment and plan. Still with upper abdominal pain and discomfort. Imaging unrevealing. Doubt significant colitis as described on CT scan. Suspect decompressed colon that appears to be thickened mucosa. Stool studies have been negative. Will proceed with endoscopy in a.m. to further assess her upper abdominal pain. Subjective Patient is a 64 yo female with abdominal pain and diarrhea with findings of enterocolitis/ileus. Patient notes persistent of right flank pain. Last recorded bowel movement 10/14/24. No new symptoms otherwise. Review of Systems Constitutional: no fever and no chills Respiratory: no cough and no dyspnea Gastrointestinal: + abdominal pain Physical Exam Gastrointestinal (Abdomen): Inspection/Auscultation: abdomen normal to inspection; abdomen not distended Percussion/Palpation: + abdomen tender and abdomen soft Results & Data Results & Data Vital Signs (Past 12 Hours) Vital Signs Temp Pulse Pulse Resp BP BP Pulse Ox 10/17/24 08:20 36.8 C 55 L 18 145/78 H 98 10/17/24 07:35 62 10/17/24 04:28 36.7 C 68 18 131/68 96 10/16/24 23:26 36.5 C 52 L 18 132/77 95 10/16/24 22:59 56 L O2 Del Method 10/17/24 08:20 Room Air 10/17/24 07:35 10/17/24 04:28 Room Air 10/16/24 23:26 Room Air 10/16/24 22:59 Laboratory Results Laboratory Results - last 48 hr 10/16/24 10/16/24 10/17/24 05:57 06:13 06:23 WBC 4.71 L 4.32 L RBC 3.69 L 3.88 L Hgb 10.4 L 10.5 L Hct 32.4 L 34.2 L MCV 87.8 88.1 MCH 28.2 27.1 MCHC 32.1 30.7 L RDW Std Deviation 47.1 H 46.5 H RDW Coeff of Sánchez 14.6 H 14.6 H Plt Count 183 194 MPV 9.3 L 9.5 Immature Gran % (Auto) 0.7 Neut % (Auto) 49.8 Lymph % (Auto) 40.7 [place] % (Auto) 7.4 Eos % (Auto) 0.9 Baso % (Auto) 0.5 Neut # (Auto) 2.15 Lymph # (Auto) 1.76 [place] # (Auto) 0.32 Eos # (Auto) 0.04 Baso # (Auto) 0.02 Immature Gran # (Auto) 0.03 Sodium 142 142 Potassium 3.8 3.5 Chloride 110 H 108 H Carbon Dioxide 29 29 Anion Gap 3 5 BUN 7 5 L Creatinine 0.78 0.71 Est Cr Clr Drug Dosing 70.6 78.6 eGFR 83.72 93.72 BUN/Creatinine Ratio 9.0 L 7.0 L Glucose 84 78 Calcium 8.2 L 8.4 L Magnesium 1.8 Total Bilirubin 0.5 AST 14 ALT 13 Alkaline Phosphatase 34 Total Protein 5.5 L Albumin 3.2 L Globulin 2.3 L Albumin/Globulin Ratio 1.4 Stl C. cayetanensis PCR Not Detected Stool Rotavirus A PCR Not Detected Stl Adenov F 40/41 PCR Not Detected Stool Astrovirus (PCR) Not Detected Stool Campylobacter PCR Not Detected Stl C. diff Tox B Gene Negative Cdiff Gene Stl C. diff [id number] NEGATIVE Stool Cryptosporidium PCR Not Detected Stl E.coli Shiga Tox PCR Not Detected Stl Enterotoxigenic E PCR Not Detected Stool EPEC (PCR) Not Detected Stool EAEC (PCR) Not Detected Stl E. histolytica PCR Not Detected Stool Giardia Lamblia PCR Not Detected Stool Salmonella PCR Not Detected Stool Sapovirus (PCR) Not Detected Stl P. shigelloides PCR Not Detected Stl Shigella/EIEC PCR Not Detected St Y.enterocolitica PCR Not Detected Stool Vibrio (PCR) Not Detected Stl Vibrio cholerae PCR Not Detected Stl Norovirus GI/GII PCR Not Detected PG Care Time/CCT Total # of Minutes Spent Total Time Spent with Patient: Total time spent is greater than 50% in coordination of care (as documented) at patient's floor/unit and/or counseling patient: Coding Level of Care Code 26170 SUB INP/OBS CARE 2/35MIN Diagnoses Acute right flank pain R10.9
[2024-10-17] MEDS: AMOXICILLIN 500 MG CAP PO SCH (14:16)
[2024-10-18 07:01] LABS: Hematocrit (blood only) 32.4 % (37.0-47.0); Hemoglobin 10.3 g/dl (12.0-16.0); Immature Granulocytes # (auto) 0.02 K/uL (0.01-0.20); Immature Granulocytes % (auto) 0.5 %; Mean Corpuscular Hemoglobin 27.4 pg (25.0-34.0); Mean Corpuscular Volume 86.2 fL (80.0-100.0); Platelet Count 178 K/uL (130-400); RDW Standard Deviation 45.8 fL (36.4-46.3); Red Blood Count 3.76 M/uL (4.20-5.40); White Blood Count 4.07 K/ul (4.8-10.8)
[2024-10-18 07:18] LABS: Anion Gap 5.0 (3-11); Blood Urea Nitrogen 5.0 mg/dl (6-23); Calcium 8.3 mg/dl (8.6-10.3); Carbon Dioxide 29.0 mmol/L (21-32); Chloride 109.0 mmol/L (98-107); Creatinine Clr Calc Pharmacy 85.7 ml/min; Glucose 75.0 mg/dl (70-99(Fasting)); Magnesium 1.8 mg/dl (1.7-2.4); Potassium 3.3 mmol/L (3.5-5.1); Sodium 143.0 mmol/L (136-145)
[2024-10-18 07:34] LABS: Thyroid Stimulating Hormone 1.713 uIu/ml (0.300-4.500)
--- NOTE | 2024-10-18 07:34 | Hospitalist Progress Note ---
Date of Service October 18, 2024 Assessment & Plan (1) Enterocolitis: (2) RUQ abdominal pain: (3) Abnormal findings on imaging of biliary tract: (4) Chills: (5) Vulvar burning: (6) Recurrent UTI: (7) Anemia: Plan This patient is a 64yo female with PMH of recurrent UTIs, prior kidney stones, cholecystectomy, fibromyalgia, right-sided kidney cancer s/p ablation procedure, and remote h/o PE who presents with 1-2 weeks of chills and night sweats. Since then she has had progressive right upper quadrant abdominal pain, nausea, poor appetite, and some episodes of yellow loose stool/diarrhea. #RUQ abdominal pain | chills | fatigue | Enterocolitis- abnormal CT imaging of the biliary tracts, her RUQ pain, chills, etc are all concerning for biliary tract disease. Interestingly throuogh LFTs wnl /-7, lipase and lactic as well as CRP wnl. Checked Lyme, anaplasmosis, babesia - negative. COVID, Flu, RSV negative. MRCP w/ no pancreatic ductal dilatation, no CBD bile duct calculi Stool PCR, cdiff negative 10/16 Diarrhea slowing per report - monitor w/ abx. Remains on probiotic. Cdiff if occurs Amoxicillin for vaginal cx - reports some improvement/continued NPO for EGD today with GI - did message about hx H pylori for testing w/ EGD Continue PPI once daily, carafate Xanax low dose for spasm, continues w/ bentyl prn, tylenol/Dilaudid for pain. +BM Possible consideration for pain management consult for ?celiac plexus block for pain control/recs pending results of EGD Notable patient reports Dr Roque had her on XIFAXAN in the past (?reduce risk of bacterial DNA/protein synthesis and inhibiting bacterial growth) ?consideration to restart? IVF ordered while NPO, supplemental KCl replacement #Hypokalemia- K 3.3, 20meq IV ordered, continue LR while NPO. Mag wnl 1.8. Follow w/ diet once able. #Cystitis vs BV - chronic interstitial cystitis reported but w/ ongoing urinary type symptoms (UA not appearing infected), vaginal cx sent w/ hx MDR vaginal candidiasis w/ glabrata (also has had ESBL Klebsiella/oxytoca) requiring ampho vaginal inserts. Started AMoxicillin 500mg BID - continued Continues on probiotic #Anemia-Hgb trend 12.8 -> 10.4 -> 10.4 --> 10.5 --> 10.3 on IVF and suspect aspect of dilutional from IVF. No bleeding reported and is on Lovenox SQ for DVT prophylaxis. BP/renal function stable and monitoring EGD in AM for eval #Wheezing (resolved) - prior report, CXR ordered and noted possible reactive small airway disease vs bronchitis. ?cough/referred pain to RUQ vs other. Eval as outlined. No wheezing on exam today and remains on RA. Encouraging use IS/monitoring #H/o vaginal candidiasis -as above,Prior genital cultures have grown ya glabrata as well as MDR pathogens. Send repeat genital culture as abve, thankfully no glabrata/need for ampho vaginal inserts #Hypothyroidism -TSH in June 2024 was WNL, repeat remains wnl and continued on usual dose Synthroid #IBS -Patient reports her current symptoms are not consistent with prior episodes of IBS, but does endorse occasional abdominal "spasms" Continue Bentyl TID PRN, xanax as above --> As above, reports prior benefit w/ Xifaxin from Dr Roque.. ?trial Dispo: continued inpatient stay, NPO for EGD with Dr Freire Continues on amoxicillin, low dose xanax helpful (consider continue [place]) Patient [place] like to switch [place] [facility] [place] (prior [facility]) Admission and Anticipated Discharge Date Admission Date: October 14, 2024 Supervising Physician Co-Signing Physician Notes Attending Attestation - Chart reviewed, care plan d/w JOSE Perkins. I agree w/ the robbins components of her documentation. s/p EGD today -- gastric polyps, gastritis, GE junction polyp seen. Esophagus wnl. Appreciate GI assistance. Cont PPI; cont carafate. Ubaldo Chi MD Subjective Evaluated around lunch time, awaiting EGD. Pain to lower abdomen improving somewhat since starting amoxicillin. Xanax helping anxiety/spasm, reports last time took a day or two. Will see about continuing such [place]. Liquid stool. Pending EGD, possible adv to more substantial diet to avoid liquids to prevent irritation. Also discussed if EGD negative, consideration for pain management consult for possible consideration for celiac block for additional pain relief? Questions/concerns addressed at this time. Physical Exam 2 Physical Exam: General: 64yo female sitting up in bed, NAD, reporting pain to RUQ but appears more comfortable today HEENT: head atraumatic, normocephalic, mm improved but still dry, trachea midline Resp: even, unlabored, no wheezing/rales, on RA CV: RRR, no significant m/r/g, no pitting edema GI: +BS, slightly distended (less), +RUQ /flank tenderness, no guarding/rebound, soft, no bruising/ecchymosis no moreira MSK/Neuro: nonfocal, able to follow commands, not confused, no slurred speech/facial droop Psych: Alert/oriented, anxious at times (improved) Results & Data Results & Data Vital Signs (Past 12 Hours) Vital Signs Temp Pulse Pulse Resp BP Pulse Ox O2 Del Method 10/18/24 06:50 56 L 10/18/24 03:03 36.4 C L 74 16 144/81 H 99 Room Air 10/17/24 22:11 36.5 C 54 L 16 122/64 96 Room Air 10/17/24 21:47 54 L 10/17/24 19:45 36.5 C 63 16 113/58 L 96 Room Air Laboratory Results 10/18/24 05:58 10/18/24 05:58 Mag 1.8 TSH 1.73 Phos 3.2 PG Care Time/CCT Total # of Minutes Spent Total Time Spent with Patient: Total time spent is greater than 50% in coordination of care (as documented) at patient's floor/unit and/or counseling patient: Coding Level of Care Code 34541 SUB INP/OBS CARE 3/50MIN Diagnoses Enterocolitis K52.9 RUQ abdominal pain R10.11 Abnormal findings on imaging of biliary tract R93.2 Chills R68.83 Vulvar burning N94.89 Recurrent UTI N39.0 Anemia D64.9
[2024-10-18] MEDS: POTASSIUM CHLORIDE / WTR 10 MEQ/100 ML PLCT IV SCH (08:47)
--- NOTE | 2024-10-18 09:03 | History & Physical Bridge Note ---
Date of Service October 18, 2024 History & Physical Bridge Note I have examined the patient, reviewed the History & Physical and in the interval since the performance of the History & Physical I have noted the following changes of clinical significance: no changes noted. She notes unchanged right flank pain. Last EGD in 2023 unremarkable for acute abnormalities per patient. She has been NPO since prior to midnight. Keep NPO and proceed with EGD today. Supervising Physician Co-Signing Physician Notes I saw and examined this patient with our nurse practitioner and agree with her assessment and plan. Still with upper abdominal discomfort. Need to exclude peptic ulcer disease and gastritis. Will proceed with endoscopy.
--- NOTE | 2024-10-18 13:34 | Anesthesiology Consultation ---
Date of Service October 18, 2024 Assessment & Plan Chart Review Chart Review: Acceptable Risk for Surgery ASA ASA3 Proposed Anesthesia Anesthesia Type: MAC Risk / Benefits Reviewed With: PT / POA / Parent / Guardian, Accepts Plan and Informed Consent Obtained History Surgery Operation Date: 10/18/24 17:10 Proposed Procedures p Esophagogastroduodenoscopy Dr. Mouna Freire MD Height/Weight Height: 5 ft 5 in Weight: 76.294 kg Allergies Allergy/AdvReac Type Severity Reaction Status Date / Time bacitracin Allergy Intermediate Hives Verified 10/14/24 16:09 [From Neosporin ([id number])] famotidine Allergy Intermediate Hives Verified 10/14/24 16:09 neomycin Allergy Intermediate Hives Verified 10/14/24 16:09 [From Neosporin ([id number])] polymyxin B Allergy Intermediate Hives Verified 10/14/24 16:09 [From Neosporin ([id number])] amoxicillin [From Augmentin] AdvReac Intermediate Caused C. Verified 10/14/24 16:09 diff clavulanic acid AdvReac Intermediate Caused C. Verified 10/14/24 16:09 [From Augmentin] diff olmesartan AdvReac Intermediate Diarrhea Verified 10/14/24 16:09 vilanterol AdvReac Intermediate Swelling Verified 10/14/24 16:09 [From Breo Ellipta] of legs/feet and GI Upset levofloxacin AdvReac Unknown tendinopathy Verified 10/14/24 16:09 - undetermined if med was cause. lactose AdvReac Verified 10/17/24 09:15 Medications Home Medications Medication Instructions Recorded Confirmed Last Taken vitamin E 268 mg (400 unit) capsule 400 unit PO QAM 09/06/18 10/14/24 10/14/24 inhalational spacing device #1 ea 09/22/18 09/14/24 Unknown (Vortex Holding Chamber) ascorbate calcium (vitamin C) 500 1,000 mg PO QAM 08/06/20 10/14/24 10/14/24 mg tablet albuterol sulfate 90 mcg/actuation 2 puff inhalation Q4H PRN 05/19/22 10/14/24 04/27/23 09:00 aerosol inhaler (Ventolin HFA) Shortness Of Breath Or Wheezing #18 grams bupropion HCl 150 mg tablet,12 hr 150 mg PO BID #180 ea 07/11/22 10/14/24 10/14/24 08:00 sustained-release fluticasone propionate 50 1 spray intranasal DAILY 30 days 07/22/22 10/14/24 10/14/24 mcg/actuation nasal #48 grams spray,suspension atorvastatin 20 mg tablet 20 mg PO HS #90 tabs 11/13/22 10/14/24 10/13/24 levocetirizine 5 mg tablet 5 mg PO HS 02/13/23 10/14/24 10/13/24 levothyroxine 88 mcg tablet 88 mcg PO QAM 02/13/23 10/14/24 10/14/24 pantoprazole 40 mg tablet,delayed 40 mg PO BID 04/09/23 10/14/24 10/14/24 08:00 release (Protonix) gabapentin 100 mg capsule 100 mg PO BID #30 caps 04/19/23 10/14/24 10/14/24 08:00 budesonide-formoterol HFA 80 2 inh inhalation BID #30.59 grams 05/07/23 10/14/24 10/14/24 08:00 mcg-4.5 mcg/actuation aerosol inhaler (Symbicort) activated charcoal 260 mg capsule 260 mg PO QDL 06/18/23 10/14/24 10/14/24 coQ10 (ubiquinol) 100 mg capsule 100 mg PO QAM 06/18/23 10/14/24 10/14/24 peppermint oil 90 mg 180 mg PO BID 06/18/23 10/14/24 10/14/24 08:00 capsule,delayed,extended release (IBgard) Saccharomyces boulardii 250 mg 250 mg PO BID #20 caps 06/26/23 10/14/24 10/14/24 08:00 capsule (Florastor) sucralfate 100 mg/mL oral 10 ml PO UD PRN stomach irritation 07/01/23 10/14/24 Unknown suspension (Carafate) cyclosporine 0.09 % eye drops in a 1 drp OPB BID 08/22/23 10/14/24 10/14/24 08:00 dropperette (Cequa) cholecalciferol (vitamin D3) 50 50 mcg PO QAM 03/23/24 10/14/24 10/14/24 mcg (2,000 unit) tablet (Vitamin D3) dicyclomine 10 mg capsule 10 mg PO TID PRN Abd pain 03/23/24 10/14/24 Unknown estradiol 0.01% (0.1 mg/gram) 0.25 appful vaginal 3XWK 03/23/24 10/14/24 03/21/24 vaginal cream nystatin-triamcinolone 100,000 1 applic topical BID PRN 03/23/24 10/14/24 Unknown unit/gram-0.1 % topical ointment Flare/Irritation tamsulosin 0.4 mg capsule 0.4 mg PO QAM 03/23/24 10/14/24 10/14/24 fluconazole 150 mg tablet 150 mg PO Q48H 6 days #3 tabs 04/21/24 10/14/24 Unknown ondansetron 4 mg disintegrating 4 mg PO Q6H PRN nausea and 08/12/24 10/14/24 Unknown tablet vomiting #30 tabs nystatin-triamcinolone 100,000 1 applic topical BID PRN SKIN 10/14/24 10/14/24 Unknown unit/gram-0.1 % topical ointment IRRITATIONS propranolol 60 mg capsule,24 60 mg PO HS 10/15/24 10/15/24 Unknown hr,extended release Active Medications Generic Name Dose Route Start Last Admin Trade Name Freq PRN Reason Stop Dose Admin Acetaminophen 650 mg 10/14/24 21:46 10/16/24 14:23 Acetaminophen 325 Mg Tab PO 11/13/24 21:45 650 mg Q4H PRN Administration Pain or Fever Alprazolam 0.25 mg 10/17/24 10:42 10/18/24 08:47 Alprazolam 0.25 Mg Tablet PO 11/16/24 10:41 0.25 mg Q8H PRN Administration anxiety or abdominal spasm Amoxicillin 500 mg 10/17/24 13:00 10/18/24 08:48 Amoxicillin 500 Mg Cap PO 10/21/24 21:01 500 mg BID BREANNA Administration Bupropion HCl 150 mg 10/14/24 21:46 10/18/24 08:47 Bupropion Sr 150 Mg Tabcr PO 11/13/24 21:45 150 mg BID BREANNA Administration Cetirizine HCl 10 mg 10/14/24 21:46 10/17/24 20:38 Cetirizine Hcl 10 Mg Tablet PO 11/13/24 21:45 10 mg HS BREANNA Administration Cyclosporine 1 10/16/24 23:00 10/18/24 08:47 Cyclosporine 1 Each Droperette OP 11/15/24 22:59 1 BID BREANNA Administration Protocol Dicyclomine HCl 10 mg 10/14/24 21:46 10/18/24 08:48 Dicyclomine Hcl 10 Mg Cap PO 11/13/24 21:45 10 mg TID PRN Administration Abd pain Enoxaparin Sodium 40 mg 10/16/24 09:00 10/18/24 08:48 Enoxaparin Inj 40 Mg/0.4 Ml Syr SQ 11/15/24 08:59 40 mg QAM BREANNA Administration Estradiol 1 appln 10/16/24 23:00 10/16/24 22:52 Estrace Vag Cream 0.01% 42.5 Gm PV 11/15/24 22:59 0.01 % [id number] BREANNA Administration Fluticasone Propionate 1 sprays 10/15/24 09:00 10/18/24 08:47 Fluticasone Propionate Na Spr 16 Gm Btl NA 11/14/24 08:59 1 sprays DAILY BREANNA Administration Gabapentin 100 mg 10/14/24 21:46 10/18/24 08:48 Gabapentin 100 Mg Cap PO 11/13/24 21:45 100 mg BID BREANNA Administration Hydromorphone HCl 0.25 mg 10/14/24 21:46 10/18/24 08:47 Hydromorphone Inj 0.5 Mg/0.5 Ml Syr IV 10/28/24 21:45 0.25 mg Q3H PRN Administration Pain Pantoprazole Sodium 40 mg in 10 mls @ 5 mls/min 10/16/24 09:00 10/18/24 08:47 Protonix IV 11/15/24 08:59 5 mls/min DAILY BREANNA Administration Lactated Ringer's 1,000 mls @ 60 mls/hr 10/17/24 08:30 10/18/24 08:46 Lr IV 10/18/24 17:49 60 mls/hr .[id number] BREANNA Administration Levothyroxine Sodium 88 mcg 10/15/24 06:30 10/18/24 05:37 Levothyroxine Sodium 88 Mcg Tablet PO 11/14/24 06:29 Not Given DAILYBB BREANNA Ondansetron HCl 4 mg 10/14/24 21:46 10/18/24 08:47 Ondansetron Inj 2 Mg/Ml 2 Ml Vial IV 11/13/24 21:45 4 mg Q6H PRN Administration Nausea Propranolol HCl 60 mg 10/15/24 00:15 10/17/24 20:36 Propranolol Hcl 60 Mg La Cap PO 11/14/24 00:14 60 mg HS BREANNA Administration Saccharomyces Boulardii 250 mg 10/14/24 21:46 10/18/24 08:48 Saccharomyces Boulardii 250 Mg Cap PO 11/13/24 21:45 250 mg BID BREANNA Administration Sucralfate 1 gm 10/16/24 21:00 10/18/24 08:48 Sucralfate 1 Gm Tab PO 11/15/24 20:59 1 gm BID BREANNA Administration Tamsulosin HCl 0.4 mg 10/15/24 09:00 10/18/24 08:48 Tamsulosin Hcl 0.4 Mg Cap PO 11/14/24 08:59 0.4 mg QAM BREANNA Administration Vitamin D 125 mcg 10/17/24 09:00 10/18/24 08:48 Cholecalciferol 125 Mcg (5,000 Units) Tab PO 11/16/24 08:59 125 mcg QAM BREANNA Administration NPO Date Last Intake of Fluids: 10/18/24 Time Last Intake of Fluids: 08:00 Date Last Intake of Solids: 10/15/24 Time Last Intake of Solids: 08:00 Past Medical History Medical History Urinary tract infection abx completed 06/28 or 06/30/23 - feeling better, all symptoms gone except some pressure. Pre op edu rev. Diverticulosis hx Gastritis History of gastric polyp History of colon polyps Vertigo none for over a month Kidney stones current Renal mass [place] [facility] aware, monitoring Paresthesia of upper extremity sometimes arms Diarrhea current : on occ /finished abx recently. History of Helicobacter pylori infection Hx of Clostridium difficile infection Remote hx approximately 30 years ago History of COVID-19 03/19/2023 ([place], [place]) > resolved 11/2021- fatigue, congestion, cough, sore throat > resolved pt reports has had a total of 3 times : 1st time in 2019 ? Hx of melanoma of skin Pulmonary embolism Remote hx approximately 30 years ago, after SUMAN (blood thinners x 3 months) Acute diverticulitis listed in differential diagnosis 04/14/23 by hospitalist, not included on discharge summary Sciatica hx COPD (chronic obstructive pulmonary disease) well controlled per pt, rare res inh use Mild reactive airways disease Depression with anxiety Esophageal reflux Fibromyalgia Hypertension Irritable bowel syndrome Hypothyroidism Hyperlipidemia History of asthma Exercise / Class Metabolic Activity III < 4 Walking/Shop/Light housework Past Family History Family History Mother Diabetes Father Heart disease Other Asthma Cancer Gallbladder disease Hypertension Stroke Denies family history of Ovarian cancer Myocardial infarction Breast cancer Colorectal cancer Colonic polyp Uterine cancer Past Surgical History Surgical History History of lithotripsy History of cystoscopy Hx of vascular surgery Dr Morales [facility] 07/2022 Distal LT GSV accessed under ultrasound guidance with placement of 4Fr sheath History of esophagogastroduodenoscopy (EGD) Hx of cataract extraction Hx of melanoma excision stomach S/P dilation and curettage History of cryosurgery History of colonoscopy (10/12/19) 4 polyps removed, [facility], Dr. Roque S/P tonsillectomy S/P sinus surgery S/P SUMAN-BSO S/P laparoscopic cholecystectomy S/P appendectomy Past Anesthesia History No Hx of Anesthesia Complications and No Family Hx of Anesthesia Complications History of PONV No Hx of PONV and No Hx of Motion Sickness Social History Smoking Status: Former smoker Do You Dip or Chew Tobacco: No Smoking End Date: 2017 Hx Alcohol Use: No Hx Substance Use: No substance use type: does not use Physical Exam Vital Signs Last Vital Signs Temp 36.2 C L 10/18/24 12:59 Pulse 63 10/18/24 12:59 Resp 16 10/18/24 12:59 BP 156/68 H 10/18/24 12:59 Pulse Ox 97 10/18/24 12:59 O2 Del Method Room Air 10/18/24 12:59 Constitutional + acute distress and + obese ENMT Mouth: + poor dentition and + chipped teeth; no TMJ abnormality Thyromental Distance: < 3.5 Finger Breadths Mallampati Class: IV Neck normal visual inspection Respiratory normal respiratory effort Auscultation: lungs clear to auscultation bilaterally Cardiovascular Rate/Rhythm: regular rate and regular rhythm Psychiatric Orientation: alert and oriented x 3 Testing Laboratory Results 10/18/24 05:58 10/18/24 05:58 Urine Color Yellow 10/14/24 14:25 Urine Appearance Clear (Clear) 10/14/24 14:25 Urine pH 6.0 (4.5-7.5) 10/14/24 14:25 Ur Specific [place] 1.010 (1.000-1.030) 10/14/24 14:25 Urine Protein Negative (Negative) 10/14/24 14:25 Urine Glucose (UA) Negative (Negative) 10/14/24 14:25 Urine Ketones Negative (Negative) 10/14/24 14:25 Urine Nitrite Negative (Negative) 10/14/24 14:25 Ur Leukocyte Esterase Negative (Negative) 10/14/24 14:25 10/14/24 22:12 Gram Stain - Final Vaginal Genital Culture - Final Enterococcus faecalis 10/14/24 19:41 Aerobic Blood Culture - Preliminary Blood No growth in Aerobic bottle after 48 hours. Anaerobic Blood Culture - Preliminary No growth in Anaerobic bottle after 48 hours. 10/14/24 19:41 Aerobic Blood Culture - Preliminary Blood No growth in Aerobic bottle after 48 hours. Anaerobic Blood Culture - Preliminary No growth in Anaerobic bottle after 48 hours. Electrocardiogram Date: 10/16/24 Findings: + NSR @ PACs
--- NOTE | 2024-10-18 13:56 | GI REPORT ---
[facility] Patient: SHARI BRAXTON : 1960 Sex at : Female Age: 64 Years Procedure: Upper GI endoscopy Date: 10/18/2024 Attending Physician: Javi Freire MD Referring MD: Ubaldo Chi Indications: - Epigastric abdominal pain Medications: - Monitored Anesthesia Care Complications: - No immediate complications. Procedure: - Prior to the procedure, a History and Physical was performed, and patient medications and allergies were reviewed. The patient's tolerance of previous anesthesia was also reviewed. The risks and benefits of the procedure and the sedation options and risks were discussed with the patient. All questions were answered, and informed consent was obtained. [Anticoagulant Agents] [Days Prior to Procedure]. [ASA Grade]. After reviewing the risks and benefits, the patient was deemed in satisfactory condition to undergo the procedure. - The EGD scope was introduced through the mouth and advanced to the second part of the duodenum. - The upper GI endoscopy was accomplished without difficulty. - The patient tolerated the procedure well. Findings: - A single less than 5 mm polyp with no bleeding was found at the gastroesophageal junction. Biopsies were taken with a cold forceps for histology. - Diffuse mild inflammation characterized by erythema was found in the gastric antrum and in the gastric body. Biopsies were taken with a cold forceps for Helicobacter pylori testing. - Multiple sessile fundic gland polyps were found in the gastric fundus and in the gastric body. Biopsies were taken with a cold forceps for histology. - The examined duodenum was normal. Impression: - Gastroesophageal junction polyp(s) were found. Biopsied. - Gastritis, characterized by erythema. Biopsied. - Multiple fundic gland polyps. Biopsied. - Normal examined duodenum. Recommendation: - Resume previous diet. - Patient has a contact number available for emergencies. The signs and symptoms of potential delayed complications were discussed with the patient. Return to normal activities tomorrow. Written discharge instructions were provided to the patient. Procedure Code(s): - 82726, Esophagogastroduodenoscopy, flexible, transoral; with biopsy, single or multiple Diagnosis Code(s): - R10.13, Epigastric pain - K22.82, Esophagogastric junction polyp - K29.70, Gastritis, unspecified, without bleeding - K31.7, Polyp of stomach and duodenum CPT(R) - 202 copyright [employer]. All Rights Reserved. The CPT codes, CCI edits and ICD codes generated are intended as suggestions and were generated based on input data. These codes are preliminary and upon exchange clerk review may be revised to meet current compliance and payer requirements. The provider is responsible for the final determination of appropriate codes, and modifiers. Javi Freire MD This document has been electronically signed. Note Initiated:10/18/2024 Note Completed:10/18/2024 1:55 PM \\[email or web address]\[email or web address]\[id number]
--- NOTE | 2024-10-18 14:38 | Anesthesiology Progress Note ---
Date of Service October 18, 2024 Anesthesia Post Procedure Vital Signs Vital Signs: Temp Pulse Pulse Resp BP BP Pulse Ox 10/18/24 14:27 61 16 159/70 H 97 10/18/24 14:13 67 16 171/91 H 96 10/18/24 13:57 36.7 C 88 18 145/67 H 97 10/18/24 12:59 36.2 C L 63 16 156/68 H 156/68 H 97 10/18/24 11:40 36.6 C 58 L 18 133/78 96 10/18/24 08:14 36.6 C 69 18 145/78 H 96 10/18/24 06:50 56 L 10/18/24 03:03 36.4 C L 74 16 144/81 H 99 10/17/24 22:11 36.5 C 54 L 16 122/64 96 10/17/24 21:47 54 L 10/17/24 19:45 36.5 C 63 16 113/58 L 96 10/17/24 15:27 36.5 C 60 20 122/74 97 10/17/24 15:00 60 O2 Del Method 10/18/24 14:27 Room Air 10/18/24 14:13 Room Air 10/18/24 13:57 Room Air 10/18/24 12:59 Room Air 10/18/24 11:40 Room Air 10/18/24 08:14 Room Air 10/18/24 06:50 10/18/24 03:03 Room Air 10/17/24 22:11 Room Air 10/17/24 21:47 10/17/24 19:45 Room Air 10/17/24 15:27 Room Air 10/17/24 15:00 Pain Intensity Left Upper Medial Abdomen: Pain Intensity: 6 Right Abdomen: Pain Intensity: 7 Transfer of Care Handoff Completed per policy Notes Mental Status: alert / awake / arousable Patient Amnestic to Procedure: Yes Nausea / Vomiting: adequately controlled Pain: adequately controlled Airway Patency, RR, SpO2: stable & adequate BP & HR: stable & adequate Hydration State: stable & adequate Anesthetic Complications: no major complications apparent and Pt Satisfied with anesthetic care
[2024-10-18] MEDS: LIDOCAINE 2% 2 ML VIAL/AMP(20MG/ML) INFIL ONE ×2 (16:09)
[2024-10-18] MEDS: PROPOFOL IV EMULSION 10 MG/ML 20 ML VIAL IV ONE ×2 (16:09→16:10)
[2024-10-18] MEDS: SODIUM CHLORIDE 0.9% 500 ML IV SCH (16:09)
[2024-10-18] MEDS: PANTOprazole 40 MG/10 ML SYR IV SCH (20:07)
[2024-10-18] MEDS: BUDESONIDE/FORMOTEROL FUMARATE 80/4.5 60 PUFFS/INHALER INH SCH (21:44)
[2024-10-19 07:44] LABS: Hematocrit (blood only) 32.1 % (37.0-47.0); Hemoglobin 10.2 g/dl (12.0-16.0); Mean Corpuscular Hemoglobin 27.4 pg (25.0-34.0); Mean Corpuscular Volume 86.3 fL (80.0-100.0); Platelet Count 168 K/uL (130-400); RDW Standard Deviation 45.5 fL (36.4-46.3); Red Blood Count 3.72 M/uL (4.20-5.40); White Blood Count 3.62 K/ul (4.8-10.8)
[2024-10-19 07:58] LABS: Anion Gap 4.0 (3-11); Blood Urea Nitrogen 6.0 mg/dl (6-23); Calcium 8.3 mg/dl (8.6-10.3); Carbon Dioxide 31.0 mmol/L (21-32); Chloride 108.0 mmol/L (98-107); Creatinine Clr Calc Pharmacy 84.8 ml/min; Glucose 76.0 mg/dl (70-99(Fasting)); Magnesium 1.8 mg/dl (1.7-2.4); Potassium 3.7 mmol/L (3.5-5.1); Sodium 143.0 mmol/L (136-145)
--- NOTE | 2024-10-19 11:47 | Gastroenterology Progress Note ---
Date of Service October 19, 2024 Assessment & Plan (1) Acute right flank pain: Plan: Discussed with Dr. Freire who recommended outpatient HBT to assess for SIBO. We will arrange this. No further acute inpatient GI plans at present. Admission and Anticipated Discharge Date Admission Date: October 14, 2024 Supervising Physician Co-Signing Physician Notes I saw and examined this patient with our nurse practitioner and agree with her assessment and plan. Still with chronic bloating sensation and discomfort. In the past this is improved with antibiotic therapy suggesting underlying small bowel bacterial overgrowth. Will arrange for outpatient SIBO test and follow-up in GI office. Subjective Patient is a 64 yo female with right flank pain. This is an acute on chronic issue, and patient mentioned to Dr. Freire that her symptoms have improved in the past with antibiotic therapy. She reiterates this to me today. She denies new symptoms. Review of Systems Gastrointestinal: + abdominal pain Physical Exam Gastrointestinal (Abdomen): Inspection/Auscultation: abdomen normal to inspe ction Percussion/Palpation: abdomen soft Results & Data Results & Data Vital Signs (Past 12 Hours) Vital Signs Temp Pulse Pulse Resp BP BP Pulse Ox 10/19/24 11:25 36.8 C 59 L 20 134/57 L 99 10/19/24 11:23 58 L 10/19/24 08:01 36.5 C 58 L 20 146/75 H 97 10/19/24 02:32 36.7 C 65 16 126/73 96 O2 Del Method 10/19/24 11:25 Room Air 10/19/24 11:23 10/19/24 08:01 Room Air 10/19/24 02:32 Room Air PG Care Time/CCT Total # of Minutes Spent Total Time Spent with Patient: Total time spent is greater than 50% in coordination of care (as documented) at patient's floor/unit and/or counseling patient: Coding Level of Care Code 62458 SUB INP/OBS CARE 2/35MIN Diagnoses Acute right flank pain R10.9
--- NOTE | 2024-10-19 12:09 | Hospitalist Progress Note ---
Date of Service October 19, 2024 Assessment & Plan (1) Enterocolitis: (2) RUQ abdominal pain: (3) Abnormal findings on imaging of biliary tract: (4) Chills: (5) Vulvar burning: (6) Recurrent UTI: (7) Anemia: Plan This patient is a 64yo female with PMH of recurrent UTIs, prior kidney stones, cholecystectomy, fibromyalgia, right-sided kidney cancer s/p ablation procedure, and remote h/o PE who presents with 1-2 weeks of chills and night sweats. Since then she has had progressive right upper quadrant abdominal pain, nausea, poor appetite, and some episodes of yellow loose stool/diarrhea. #RUQ abdominal pain | chills | fatigue | Enterocolitis- abnormal CT imaging of the biliary tracts, her RUQ pain, chills, etc are all concerning for biliary tract disease. Interestingly throuogh LFTs wnl 10/14-10/15, lipase and lactic as well as CRP wnl. Checked Lyme, anaplasmosis, babesia - negative. COVID, Flu, RSV negative. MRCP w/ no pancreatic ductal dilatation, no CBD bile duct calculi. Stool PCR, cdiff negative 10/16 GI on consult s/p EGD 10/[address] Freire - EGD noting 5mm polyp, no bleeding at GEJ. Bx taken. Diffuse mild inflammation with erythema in gastric antrum and body. H pylori testing sent. Bx sessile fundic gland polyps as well. Duodenum normal. Continue PPI, but increased to BID. WIll change to PO as tolerating oral intake Continue carafate GI planning for HBT as outpatient for rich Borrego changed to TID scheduled, xanax available for spasm/anxiety Diarrhea x 2 today - prior cdiff negative. Monitor for worsening on Amox for below. Diet advanced to low fat/low fiber-- monitor antiemetics/pain control available, added PO oxy to prevent need for IV Consideration to tx H Pylori prior to dc if testing not back given hx and findings on EGD #Hypokalemia- low/likely due to diarrhea/poor PO intake. Normalized on labs and mag wnl and monitoring BMP in AM w/ advancement of diet off fluids to ensure remaining stable with ongoing PPI therapy #Cystitis vs BV - chronic interstitial cystitis reported but w/ ongoing urinary type symptoms (UA not appearing infected), vaginal cx sent w/ hx MDR vaginal candidiasis w/ glabrata (also has had ESBL Klebsiella/oxytoca) requiring ampho vaginal inserts. Started Amoxicillin 500mg BID - plan x 5 days Monitor for yeast, fluconazole effective in past, continues on probiotic #Anemia- Stable with ongoing IVF, suspected dilutional. No bleeding. EGD as above. #Wheezing (resolved) - prior report, CXR ordered and noted possible reactive small airway disease vs bronchitis. ?cough/referred pain to RUQ vs other. Eval as outlined. No wheezing on exam today and remains on RA. Encouraging use IS/monitoring. Home symbicort brought in by /continued #H/o vaginal candidiasis -as above,Prior genital cultures have grown ya glabrata as well as MDR pathogens. Send repeat genital culture as above, thankfully no glabrata/need for ampho vaginal inserts #Hypothyroidism -TSH in June 2024 was WNL, -repeat remains wnl and continued on usual dose Synthroid #IBS -Patient reports her current symptoms are not consistent with prior episodes of IBS, but does endorse occasional abdominal "spasms" Continue Bentyl TID PRN-- changed to scheduled Xanax available for anxiety symptoms/use in the past. Reports use azulfazine and xifaxin in the past with Dr Roque -- rec f/u discussion GI GI plans for HBT to eval underlying SIBO outpatient Dispo: continued inpatient stay with advancement of diet and adjustment bentyl. F/u pathology from EGD/H. Pylori testing Hopeful dc 7.10 if improvement in symptoms and tolerance in diet. Need [facility] follow up for eval SIBO outpatient Admission and Anticipated Discharge Date Admission Date: October 14, 2024 Supervising Physician Co-Signing Physician Notes The patient was not seen by me. The chart was reviewed. Case discussed with JOSE Perkins. Agree with assessment and plan Subjective Patient evaluated this morning, feeling better with treatment. Tolerated diet this morning but had diarrhea x 2, mild RUQ pain but appears improved and will continue diet as ordered/monitor. Will ensure Bentyl made scheduled. PPI to continue BID, prior use omeprazole/Prilosec. Path pending from EGD, h. pylori testing. GI saw this morning, planning for hydrogen breath test as outpatient to assess for SIBO. No CP/SOB. Possible dc tomorrow. Physical Exam 2 Physical Exam: General: 64yo female sitting up in bed, NAD, reporting pain to RUQ but appears more comfortable today HEENT: head atraumatic, normocephalic, mm improved, trachea midline Resp: even, unlabored, no wheezing/rales, on RA CV: RRR, no significant m/r/g, no pitting edema GI: +BS, slightly distended (less), +RUQ tenderness improved, no rebound/guarding, no bruising/ecchymosis no moreira MSK/Neuro: nonfocal, able to follow commands, not confused, no slurred speech/facial droop Psych: Alert/oriented, anxious at times (improved) Results & Data Results & Data Vital Signs (Past 12 Hours) Vital Signs Temp Pulse Pulse Resp BP BP Pulse Ox 10/19/24 11:25 36.8 C 59 L 20 134/57 L 99 10/19/24 11:23 58 L 10/19/24 08:01 36.5 C 58 L 20 146/75 H 97 10/19/24 02:32 36.7 C 65 16 126/73 96 O2 Del Method 10/19/24 11:25 Room Air 10/19/24 11:23 10/19/24 08:01 Room Air 10/19/24 02:32 Room Air Laboratory Results 10/19/24 07:05 10/19/24 07:05 Mag 1.8 PG Care Time/CCT Total # of Minutes Spent Total Time Spent with Patient: Total time spent is greater than 50% in coordination of care (as documented) at patient's floor/unit and/or counseling patient: Coding Level of Care Code 20558 SUB INP/OBS CARE 3/50MIN Diagnoses Enterocolitis K52.9 RUQ abdominal pain R10.11 Abnormal findings on imaging of biliary tract R93.2 Chills R68.83 Vulvar burning N94.89 Recurrent UTI N39.0 Anemia D64.9
[2024-10-19] MEDS: DICYCLOMINE HCL 10 MG CAP PO SCH (14:48)
[2024-10-20 00:01] VITALS: O2SAT 95
[2024-10-20 07:54] VITALS: RESP 20; TEMP 97.9
[2024-10-20 10:00] LABS: Anion Gap 6.0 (3-11); Blood Urea Nitrogen 9.0 mg/dl (6-23); Calcium 8.6 mg/dl (8.6-10.3); Carbon Dioxide 30.0 mmol/L (21-32); Chloride 106.0 mmol/L (98-107); Creatinine Clr Calc Pharmacy 79.5 ml/min; Glucose 78.0 mg/dl (70-99(Fasting)); Potassium 3.5 mmol/L (3.5-5.1); Sodium 142.0 mmol/L (136-145)
--- NOTE | 2024-10-20 11:46 | Discharge Summary ---
Date of Service October 20, 2024 Admission HPI Per Admitting Provider 64yo female with history of recurrent UTIs, prior kidney stones, fibromyalgia, right-sided kidney cancer s/p ablation procedure, hypothyroidism, remote h/o PE, and hyperlipidemia who presents with 1-2 weeks of chills, some sweats at night, then the development of feeling very poorly on Thursday of this week. Since then she has had progressive right upper quadrant abdominal pain, nausea, poor appetite, and some episodes of yellow loose stool/diarrhea. She has not vomited. She has been trying to hydrate but this has been difficult as well. She continues with dysuria. She is uncertain if she has vaginal discharge. Tylenol prn pain at home was not effective. No documented fever. No travel. No sick contacts. Pain in her abdomen has not been worsened by eating. She has tendencies towards abdominal discomfort, but this is different than her typical/chronic lower abdominal pain. Patient denies any back pain. Denies left-sided abdominal pain. When asked if her pain is similar to when she had gall bladder disease 20 years ago she cannot recall. Specialty Data Hospitalist Discharge diagnosis: 1. Enterocolitis 2. Cystitis vs BV Discharge assessment: Vital Signs Temp Pulse Pulse Resp BP Pulse Ox O2 Del Method 10/20/24 07:53 36.6 C 64 20 143/67 H 95 Room Air 10/20/24 05:59 57 L 10/20/24 03:18 36.7 C 66 18 115/69 95 Room Air 10/19/24 23:59 36.8 C 62 18 134/57 L 95 Room Air 10/19/24 22:12 74 10/19/24 19:39 36.6 C 66 18 130/69 96 Room Air 10/19/24 15:57 36.7 C 59 L 16 113/67 97 Room Air 10/19/24 13:59 70 GENERAL: 64 yo well nourished middle aged WF. A&Ox4. Pleasant and cooperative. No distress. LUNGS: Clear to auscultation bilaterally. No w/r/r. CARDIOVASCULAR: Regular rate and rhythm. ABDOMEN: Soft, non-tender and non-distended. BS normoactive x 4 quad. EXTREMITIES: No edema. Non-tender. Peripheral pulses +2/4. SKIN: Warm, dry, intact. No rashes or lesions. Discharge Data Consultations 10/14/24 17:47 ED Decision to Admit Stat 10/15/24 17:12 Consult Gastroenterology Routine Procedures Performed Abdomen/Pelvis CT 10/14/24 14:35 EXAMINATION: CT of the abdomen and pelvis performed after the administration of IV contrast. TECHNIQUE: Helical CT images from the lung bases through the symphysis pubis were obtained with contrast. Coronal and sagittal reformatted images were generated at a workstation for further assessment. Dose reduction techniques were achieved by using automatic exposure control and/or adjustment of mA and/or kV according to patient size and/or use of iterative reconstruction technique. HISTORY: Right flank pain. COMPARISON: May 06, 2024. FINDINGS: Automatic Pattern Edger film demonstrates nonspecific prominent gas distended large bowel. Lung windows demonstrate clear included pulmonary bases. Soft tissue windows demonstrate cholecystectomy changes. Prominent intrahepatic and common ducts. No discrete radiopaque choledocholithiasis or pancreatic head mass. Uterus is absent. Ovaries not identified. Mild air-fluid distended proximal large bowel. No appreciated wall thickening or mechanical obstruction. Terminal ileum is within normal limits. Appendix is not identified. No secondary findings of appendiceal disease. Remaining solid and hollow organs of the abdomen and pelvis are within normal limits. No appreciated free air or free fluid. Bone windows demonstrate degenerative changes of the spine. IMPRESSION: 1. Interval prominent intrahepatic and extra hepatic ducts without discrete radiopaque choledocholithiasis or pancreatic head mass. Consider MRCP if indicated. Correlate with clinical data. 2. Prominent air-fluid distended proximal large bowel without discrete mass, wall thickening or surrounding inflammatory changes. No discrete colitis. Question transient malabsorption. Correlate with clinical data. No additional findings to indicate source of patient's symptoms. Please see above for details. Electronically signed by Ramu Maddox 10-14-2024 4:37 PM Chest X-Ray 10/15/24 17:11 EXAM: Portable AP chest radiograph TECHNIQUE: AP portable radiograph of the chest was obtained. INDICATION: Shortness of breath Comparison: Chest radiograph March 23, 2024 FINDINGS: LINES and TUBES: None CARDIOVASCULAR: Cardiac silhouette is stably and mildly enlarged in size. Atherosclerosis of the thoracic aorta. LUNGS/PLEURA: Mild pulmonary vascular congestion is similar to the previous examination. Peribronchial cuffing that may be due to reactive small airways disease versus bronchiolitis. No focal consolidation identified. No significant pleural fluid. Similar minimal blunting of the left costophrenic angle. No discernible pneumothorax. OSSEOUS/OTHER: No displaced acute osseous process identified. IMPRESSION: No focal consolidation is identified. Peribronchial cuffing that may be due to reactive small airways disease versus bronchiolitis. Electronically signed by Jose Chung 10-15-2024 7:38 PM Cholangiopancreatography MRI 10/15/24 18:36 MRCP CLINICAL HISTORY: RUQ pain, abnl CT a/p with biliary dilatation. TECHNIQUE: Utilizing a 3 [place] magnet and dedicated coil, multiplanar, multiecho imaging of the upper abdomen was performed utilizing heavily T2 weighted pulsing sequences without IV contrast. COMPARISON STUDY: CT of the abdomen and pelvis October 14, 2024. Right upper quadrant ultrasound August 16, 2023. MRCP April 14, 2023. FINDINGS: Biliary ductal dilatation is unchanged since MRCP of April 14, 2023. The common bile duct measures 1 cm in caliber. This is likely related to cholecystectomy. No common bile duct calculi are identified although the 3D MRCP sequence is compromised by motion artifact. No hepatic lesions are identified on unenhanced exam. Unenhanced images of the adrenal glands, kidneys and pancreas are unremarkable. There is no abdominal ascites or lymphadenopathy. Caliber of visualized small and large bowel are normal. There is no pancreatic ductal dilatation. IMPRESSION: 1. Stable mild biliary ductal dilatation since MRCP of April 14, 2023. This is likely related to cholecystectomy. No common bile duct calculi identified. Exam mildly compromised by motion artifact. 2. No pancreatic ductal dilatation. ACT 112: Negative or not required by law. Electronically signed by: Americo Joya M.D. 10/15/2024 3:10 PM Operation Date: 10/18/24 17:10 Actual Procedures p EGD Biopsy Cytology - Javi Freire MD Hospital Course (1) Enterocolitis: (2) RUQ abdominal pain: (3) Abnormal findings on imaging of biliary tract: (4) Chills: (5) Vulvar burning: (6) Recurrent UTI: (7) Anemia: Plan This patient is a 64yo female with PMH of recurrent UTIs, prior kidney stones, cholecystectomy, fibromyalgia, right-sided kidney cancer s/p ablation procedure, and remote h/o PE who presents with 1-2 weeks of chills and night sweats. Since then she has had progressive right upper quadrant abdominal pain, nausea, poor appetite, and some episodes of yellow loose stool/diarrhea. #RUQ abdominal pain | chills | fatigue | Enterocolitis- abnormal CT imaging of the biliary tracts, her RUQ pain, chills, etc are all concerning for biliary tract disease. Interestingly throuogh LFTs wnl 10/14-10/15, lipase and lactic as well as CRP wnl. Checked Lyme, anaplasmosis, babesia - negative. COVID, Flu, RSV negative. MRCP w/ no pancreatic ductal dilatation, no CBD bile duct calculi. Stool PCR, cdiff negative 10/16 GI on consult s/p EGD 10/[address] Freire - EGD noting 5mm polyp, no bleeding at [facility]. Bx taken. Diffuse mild inflammation with erythema in gastric antrum and body. H pylori testing sent. Bx sessile fundic gland polyps as well. Duodenum normal. Continue PPI, but increased to BID. WIll change to PO as tolerating oral intake Continue carafate GI planning for HBT as outpatient for eval SIBO Bentyl changed to TID scheduled, xanax available for spasm/anxiety Diarrhea x 2 today - prior cdiff negative. Monitor for worsening on Amox for below. Diet advanced to low fat/low fiber-- monitor antiemetics/pain control available, added PO oxy to prevent need for IV Outpatient fu with GI for h pylori breath test #Hypokalemia- low/likely due to diarrhea/poor PO intake. Normalized on labs and mag wnl and monitoring BMP in AM w/ advancement of diet off fluids to ensure remaining stable with ongoing PPI therapy #Cystitis vs BV - chronic interstitial cystitis reported but w/ ongoing urinary type symptoms (UA not appearing infected), vaginal cx sent w/ hx MDR vaginal candidiasis w/ glabrata (also has had ESBL Klebsiella/oxytoca) requiring ampho vaginal inserts. Started Amoxicillin 500mg BID - plan x 5 days Monitor for yeast, fluconazole effective in past, continues on probiotic #Anemia- Stable with ongoing IVF, suspected dilutional. No bleeding. EGD as above. #Wheezing (resolved) - prior report, CXR ordered and noted possible reactive small airway disease vs bronchitis. ?cough/referred pain to RUQ vs other. Eval as outlined. No wheezing on exam today and remains on RA. Encouraging use IS/monitoring. Home symbicort brought in by /continued #H/o vaginal candidiasis -as above,Prior genital cultures have grown ya glabrata as well as MDR pathogens. Send repeat genital culture as above, thankfully no glabrata/need for ampho vaginal inserts #Hypothyroidism -TSH in June 2024 was WNL, -repeat remains wnl and continued on usual dose Synthroid #IBS -Patient reports her current symptoms are not consistent with prior episodes of IBS, but does endorse occasional abdominal "spasms" Continue Bentyl TID PRN-- changed to scheduled Xanax available for anxiety symptoms/use in the past. Reports use azulfazine and xifaxin in the past with Dr Roque -- rec f/u discussion GI GI plans for HBT to eval underlying SIBO outpatient Patient seen on rounds 10/20, she notes only residual amount of discomfort in her epigastrium but largely has improved and is tolerating oral intake w/o n/v/d. She is medically and hemodynamically stable for discharge home with outpatient f/u with GI and PCP. Rx to complete course of amoxil also rx for PPI BID, carafate BID, and low dose Xanax. Above plan of care has been d/w Dr. Christianson who is in agreement with aforementioned. Total time for discharge: 38 minutes Supervising Physician Co-Signing Physician Notes The patient was not seen by me. The chart was reviewed. Case discussed with JOSE Limon. Agree with assessment and plan Coding Level of Care Code 41339 INP/OBS DISCH >30 MIN Diagnoses Enterocolitis K52.9 RUQ abdominal pain R10.11 Abnormal findings on imaging of biliary tract R93.2 Chills R68.83 Vulvar burning N94.89 Recurrent UTI N39.0 Anemia D64.9
[2024-10-20 11:49] VITALS: BP 126/73; PULSE 59
== END 2024-10-20 12:27 | disposition home or self-care (01) | DRG 392 ==
LOC: ED 13:51 → 2N 18:43 → SUATTDRO 18:43 → 2N 21:04

== ENCOUNTER 2024-11-13 21:48 | Inpatient (IN) ==
[2024-11-13] MEDS: PANTOprazole 40 MG/10 ML SYR IV ONE (22:07)
[2024-11-13] MEDS: SODIUM CHLORIDE 0.9% 1,000 ML IV ONE (22:08)
[2024-11-13] MEDS: ALUMINUM/MAGNESIUM SUSP 30 ML UDC PO STA (22:09)
[2024-11-13 22:34] LABS: Appearance Urine Clear (Clear); Glucose Urine UA Negative (Negative)
[2024-11-13 22:36] LABS: Hematocrit (blood only) 38.8 % (37.0-47.0); Hemoglobin 12.5 g/dl (12.0-16.0); Immature Granulocytes # (auto) 0.03 K/uL (0.01-0.20); Immature Granulocytes % (auto) 0.3 %; Mean Corpuscular Hemoglobin 27.8 pg (25.0-34.0); Mean Corpuscular Volume 86.4 fL (80.0-100.0); Platelet Count 268 K/uL (130-400); RDW Standard Deviation 48.1 fL (36.4-46.3); Red Blood Count 4.49 M/uL (4.20-5.40); White Blood Count 8.91 K/ul (4.8-10.8)
[2024-11-13 22:53] LABS: Alanine Aminotransferase 14.0 U/L (7-52); Albumin Globulin Ratio 1.2 (0.9-2); Alkaline Phosphatase 47.0 U/L (34-104); Anion Gap 7.0 (3-11); Bilirubin,Total 0.3 mg/dl (0.2-1.0); Blood Urea Nitrogen 12.0 mg/dl (6-23); Calcium 8.9 mg/dl (8.6-10.3); Carbon Dioxide 27.0 mmol/L (21-32); Chloride 105.0 mmol/L (98-107); Creatinine Clr Calc Pharmacy 60.5 ml/min; Globulin 3.3 gm/dl (2.5-4.0); Glucose 89.0 mg/dl (70-99(Fasting)); Lipase 20.0 U/L (11-82); Magnesium 2.0 mg/dl (1.7-2.4); Potassium 3.8 mmol/L (3.5-5.1); Sodium 139.0 mmol/L (136-145); Total Protein 7.4 gm/dl (6.0-8.3)
--- NOTE | 2024-11-13 22:54 | Emergency Department Note ---
History of Present Illness General Chief complaint: Abdominal Pain Stated complaint: ABD PAIN Time Seen by Provider: 11/13/24 21:54 History of Present Illness Maximum Pain Intensity: 10 This is a 64-year-old female presenting to the emergency department for evaluation of abdominal pain that she rates a 01/20. Patient arrives here through triage accompanied by her . Patient is known to this facility due to frequency of visits, having 18 visits in the past 20 months for abdominal pain. Most recent visit was about 1 month ago where she underwent CT scan and was admitted for possible biliary dilatation. She did have MRCP as well as scoping through gastroenterology. She had negative H. pylori and SIBO testing. Patient states that her pain is identical to previous episodes, primarily epigastric and bloating. She had to stop several of her medications for the SIBO testing, and restarted them. She has not had distinct fever or chills. No reported difficulty going to the bathroom. Past surgical history includes total hysterectomy, cholecystectomy, and appendectomy. Home Medications Medication Instructions Recorded Confirmed Type vitamin E 268 mg (400 unit) capsule 400 unit PO QAM 09/06/18 11/13/24 History inhalational spacing device #1 ea 09/22/18 11/08/24 Rx (Vortex Holding Chamber) ascorbate calcium (vitamin C) 500 1,000 mg PO QAM 08/06/20 11/13/24 History mg tablet albuterol sulfate 90 mcg/actuation 2 puff inhalation Q4H PRN 05/19/22 11/13/24 Rx aerosol inhaler (Ventolin HFA) Shortness Of Breath Or Wheezing #18 grams bupropion HCl 150 mg tablet,12 hr 150 mg PO BID #180 ea 07/11/22 11/13/24 Rx sustained-release fluticasone propionate 50 1 spray intranasal DAILY 30 days 07/22/22 11/13/24 Rx mcg/actuation nasal #48 grams spray,suspension atorvastatin 20 mg tablet 20 mg PO HS #90 tabs 11/13/22 11/13/24 Rx levocetirizine 5 mg tablet 5 mg PO HS 02/13/23 11/13/24 History levothyroxine 88 mcg tablet 88 mcg PO QAM 02/13/23 11/13/24 History gabapentin 100 mg capsule 100 mg PO BID #30 caps 04/19/23 11/13/24 Rx budesonide-formoterol HFA 80 2 inh inhalation BID #30.59 grams 05/07/23 11/13/24 Rx mcg-4.5 mcg/actuation aerosol inhaler (Symbicort) activated charcoal 260 mg capsule 260 mg PO QDL 06/18/23 11/13/24 History coQ10 (ubiquinol) 100 mg capsule 100 mg PO QAM 06/18/23 11/13/24 History peppermint oil 90 mg 180 mg PO BID 06/18/23 11/13/24 History capsule,delayed,extended release (IBgard) Saccharomyces boulardii 250 mg 250 mg PO BID #20 caps 06/26/23 11/13/24 Rx capsule (Florastor) cyclosporine 0.09 % eye drops in a 1 drp OPB BID 08/22/23 11/13/24 History dropperette (Cequa) cholecalciferol (vitamin D3) 50 50 mcg PO QAM 03/23/24 11/13/24 History mcg (2,000 unit) tablet (Vitamin D3) dicyclomine 10 mg capsule 10 mg PO TID PRN Abd pain 03/23/24 11/13/24 History estradiol 0.01% (0.1 mg/gram) 0.25 appful vaginal 3XWK 03/23/24 11/13/24 History vaginal cream nystatin-triamcinolone 100,000 1 applic topical BID PRN 03/23/24 11/13/24 History unit/gram-0.1 % topical ointment Flare/Irritation tamsulosin 0.4 mg capsule 0.4 mg PO QAM 03/23/24 11/13/24 History fluconazole 150 mg tablet 150 mg PO Q48H 6 days #3 tabs 04/21/24 11/13/24 Rx ondansetron 4 mg disintegrating 4 mg PO Q6H PRN nausea and 08/12/24 11/13/24 Rx tablet vomiting #30 tabs nystatin-triamcinolone 100,000 1 applic topical BID PRN SKIN 10/14/24 11/13/24 History unit/gram-0.1 % topical ointment IRRITATIONS propranolol 60 mg capsule,24 60 mg PO HS 10/15/24 11/13/24 History hr,extended release alprazolam 0.25 mg tablet 0.25 mg PO Q8H PRN anxiety #10 tabs 10/20/24 11/13/24 Rx pantoprazole 40 mg tablet,delayed 40 mg PO BID #60 tabs 10/20/24 11/13/24 Rx release sucralfate 1 gram tablet 1 g PO BID 30 days #60 tabs 10/20/24 11/13/24 Rx Allergies Allergy/AdvReac Type Severity Reaction Status Date / Time bacitracin Allergy Intermediate Hives Verified 11/13/24 23:06 [From Neosporin ([id number])] famotidine Allergy Intermediate Hives Verified 11/13/24 23:06 neomycin Allergy Intermediate Hives Verified 11/13/24 23:06 [From Neosporin ([id number])] polymyxin B Allergy Intermediate Hives Verified 11/13/24 23:06 [From Neosporin ([id number])] amoxicillin [From Augmentin] AdvReac Intermediate Caused C. Verified 11/13/24 23:06 diff clavulanic acid AdvReac Intermediate Caused C. Verified 11/13/24 23:06 [From Augmentin] diff lactose AdvReac Intermediate Gastrointestinal Verified 11/13/24 23:06 Upset olmesartan AdvReac Intermediate Diarrhea Verified 11/13/24 23:06 vilanterol AdvReac Intermediate Swelling Verified 11/13/24 23:06 [From Breo Ellipta] of legs/feet and GI Upset levofloxacin AdvReac Unknown tendinopathy Verified 11/13/24 23:06 - undetermined if med was cause. Past Med/Surg History Problem List (Updated 11/14/24 @ 00:54 by Dallin Calle PA-C) Generalized abdominal pain (Acute) Enterocolitis Anemia Abnormal computerized axial tomography of liver (Acute) Vulvar burning Chronic nausea Drug allergy Atrophic vaginitis Right kidney mass Recurrent UTI Depression Abnormal findings on imaging of biliary tract Abdominal pain (Acute) Bilateral kidney stones Epigastric pain Hip tendinitis Calcium kidney stone Hamstring tendinitis Arthritis of hip Hx of diverticulitis of colon Greater trochanteric pain syndrome Palpitations Chronic venous insufficiency Pain of right sacroiliac joint Helicobacter pylori infection C. difficile colitis Allergic rhinitis (Chronic) Idiopathic urticaria (Acute) Chronic sinusitis (Chronic) Impaired fasting glucose (Chronic) Medical History Urinary tract infection abx completed 06/28 or 06/30/23 - feeling better, all symptoms gone except some pressure. Pre op edu rev. Diverticulosis hx Gastritis History of gastric polyp History of colon polyps Vertigo none for over a month Kidney stones current Renal mass [place] [facility] aware, monitoring Paresthesia of upper extremity sometimes arms Diarrhea current : on occ /finished abx recently. History of Helicobacter pylori infection Hx of Clostridium difficile infection Remote hx approximately 30 years ago History of COVID-19 03/19/2023 ([place], [place]) > resolved 11/2021- fatigue, congestion, cough, sore throat > resolved pt reports has had a total of 3 times : 1st time in 2019 ? Hx of melanoma of skin Pulmonary embolism Remote hx approximately 30 years ago, after SUMAN (blood thinners x 3 months) Acute diverticulitis listed in differential diagnosis 04/14/23 by hospitalist, not included on discharge summary Sciatica hx COPD (chronic obstructive pulmonary disease) well controlled per pt, rare res inh use Mild reactive airways disease Depression with anxiety Esophageal reflux Fibromyalgia Hypertension Irritable bowel syndrome Hypothyroidism Hyperlipidemia History of asthma Surgical History History of lithotripsy History of cystoscopy Hx of vascular surgery Dr Morales [facility] 07/2022 Distal LT GSV accessed under ultrasound guidance with placement of 4Fr sheath History of esophagogastroduodenoscopy (EGD) Hx of cataract extraction Hx of melanoma excision stomach S/P dilation and curettage History of cryosurgery History of colonoscopy (10/12/19) 4 polyps removed, [facility], Dr. Roque S/P tonsillectomy S/P sinus surgery S/P SUMAN-BSO S/P laparoscopic cholecystectomy S/P appendectomy Family History Mother Diabetes Father Heart disease Other Asthma Cancer Gallbladder disease Hypertension Stroke Denies family history of Ovarian cancer Myocardial infarction Breast cancer Colorectal cancer Colonic polyp Uterine cancer Social History Smoking Status: Former smoker Tobacco Type: Cigarettes Age Started Using Tobacco: 18; Age Quit Using Tobacco: 58; Second Hand Exposure: No; Do You Dip or Chew Tobacco: No; Tobacco Cessation Education Requested by Patient: No Hx Alcohol Use: No Hx Substance Use: No Preferred Language: Spanish Communication Ability: Effective Visual Impairment: No Limitations Hearing Ability: Normal Systems Technician Required: No Beliefs That Will Affect Care: None marital status: Current Living Situation: Spouse Current Living Situation Comment: [facility] current occupational status: disabled Other Information That Helps Us Care for You: No Feels Safe at Home: Yes Safety Concerns: Feels Safe At This Time Childhood Exposure to Second-Hand Smoke: Yes Dental Care, Regularly: Yes Seatbelt Use: always Sunscreen Use: Yes Do you think of yourself as: straight/heterosexual Sexual Activity: has been sexually active within the last 12 months Assistive Devices: Denture - Upper Review of Systems A total of 10 systems reviewed and were otherwise negative Physical Exam Vital Signs Vital Signs - 24 hr 11/13/24 21:49 11/13/24 22:05 11/13/24 22:18 Temperature 36.4 C L Temperature Source Temporal Artery Scan Pulse Rate 77 78 77 Pulse Rate [Right Finger] Respiratory Rate 16 Respiratory Effort / Characteristics Non-Labored Spontaneous Respiratory Depth Normal Respiratory Pattern Regular Blood Pressure 172/91 H Blood Pressure [Left Arm] Blood Pressure Mean 118 Blood Pressure Mean [Left Arm] Pulse Oximetry 95 95 Oxygen Delivery Method Room Air Room Air Sepsis Recent Fever Within 48 Hours No Sepsis New/Unexplained Change in Mental Status N/A Sepsis Action Taken by Nursing No Action Required 11/13/24 23:00 11/14/24 01:00 11/14/24 02:01 Temperature 36.5 C Temperature Source Oral Pulse Rate 72 Pulse Rate [Right Finger] 66 82 Respiratory Rate 18 18 Respiratory Effort / Characteristics Non-Labored Spontaneous Non-Labored Spontaneous Respiratory Depth Normal Normal Respiratory Pattern Regular Regular Blood Pressure Blood Pressure [Left Arm] 165/90 H 197/75 H Blood Pressure Mean Blood Pressure Mean [Left Arm] 115 115 Pulse Oximetry 95 95 Oxygen Delivery Method Room Air Room Air Sepsis Recent Fever Within 48 Hours Sepsis New/Unexplained Change in Mental Status Sepsis Action Taken by Nursing 11/14/24 03:00 Temperature 36.5 C Temperature Source Oral Pulse Rate Pulse Rate [Right Finger] 67 Respiratory Rate 17 Respiratory Effort / Characteristics Non-Labored Spontaneous Respiratory Depth Normal Respiratory Pattern Regular Blood Pressure Blood Pressure [Left Arm] 157/69 H Blood Pressure Mean Blood Pressure Mean [Left Arm] 98 Pulse Oximetry 96 Oxygen Delivery Method Room Air Sepsis Recent Fever Within 48 Hours Sepsis New/Unexplained Change in Mental Status Sepsis Action Taken by Nursing VITALS: Vitals are noted on the nurse's note and reviewed by myself. Vital signs stable. GENERAL: Well-developed, well-nourished, white female, who is in no acute distress and resting comfortably. Patient is cooperative with the examination. HEAD: Normocephalic atraumatic. NECK: Supple without nuchal rigidity. No lymphadenopathy. No thyromegaly. Cervical spine is nontender. HEART: Regular rate and rhythm without murmurs gallops or rubs. LUNGS: Clear to auscultation bilaterally without wheezes, rales or rhonchi. No retractions or accessory muscle use. ABDOMEN: Positive normal bowel sounds x 4. Soft, nontender, without masses or organomegaly. No guarding or rebound tenderness. MUSCULOSKELETAL: No muscle atrophy, erythema, or edema noted. Full range of motion in all extremities. No tenderness to palpation. NEURO: Patient was alert and oriented to person place and time. CN II through XII grossly intact. No focal neurological deficits. GCS 15. SKIN: The skin was without rashes, erythema, edema, or bruising. Capillary refill less than 2 seconds. Course Administered Medications Hydromorphone HCl (Hydromorphone Inj 0.5 Mg/0.5 Ml Syr) 0.25 mg IV Q6H PRN PRN Reason: Pain 7,8,9,10 Stop: 11/28/24 04:48 Last Admin: 11/14/24 05:16 Dose: 0.25 mg Documented By: MYRNA Lactated Ringer's (Lr) 1,000 mls @ 80 mls/hr IV .[id number] [facility] Stop: 11/14/24 17:18 Last Admin: 11/14/24 05:14 Dose: 80 mls/hr Documented By: Discontinued Medications Al Hydrox/Mg Hydrox/Simethicone (Aluminum/Magnesium Susp 30 Ml Udc) 30 ml PO NOW STA Stop: 11/13/24 22:01 Last Admin: 11/13/24 22:09 Dose: 30 ml Documented By: MED Dicyclomine HCl (Dicyclomine Hcl 10 Mg Cap) 10 mg PO NOW ONE Stop: 11/14/24 01:26 Last Admin: 11/14/24 01:32 Dose: 10 mg Documented By: AUBREY Hydromorphone HCl (Hydromorphone Inj 0.5 Mg/0.5 Ml Syr) 0.25 mg IV NOW STA Stop: 11/14/24 01:30 Last Admin: 11/14/24 01:45 Dose: 0.25 mg Documented By: AUBREY Sodium Chloride (Nss) 1,000 mls @ 999 mls/hr IV .Q1H1M ONE Stop: 11/13/24 23:00 Last Infusion: 11/14/24 00:00 Dose: Infused Documented By: Admin: 11/13/24 22:08 Dose: 999 mls/hr Documented By: EDMUNDO Pantoprazole Sodium (Protonix) 40 mg in 10 mls @ 5 mls/min IV NOW ONE Stop: 11/13/24 22:01 Last Admin: 11/13/24 22:07 Dose: 5 mls/min Documented By: EDMUNDO Sucralfate (Sucralfate 1 Gm/10 Ml Udc) 1 gm PO NOW STA Stop: 11/14/24 01:26 Last Admin: 11/14/24 01:33 Dose: 1 gm Documented By: AUBREY Medical Decision Making Differential Diagnosis Differential diagnosis: Etiologies such as biliary colic, cholecystitis, hepatitis, pancreatitis, cardiac disease, pancreatitis, gastritis, peptic ulcer disease, appendicitis, cystitis, diverticulitis, mesenteric ischemia, inflammatory bowel disease, ileus, bowel obstruction, testicular/adnexal torsion, aortic pathology, shingles, as well as others were considered Laboratory Data 11/13/24 22:08 11/13/24 22:08 Lab Results 11/13/24 11/13/24 Range/Units 22:08 22:13 WBC 8.91 (4.8-10.8) K/ul RBC 4.49 (4.20-5.40) M/uL Hgb 12.5 (12.0-16.0) g/dl Hct 38.8 (37.0-47.0) % MCV 86.4 (80.0-100.0) fL MCH 27.8 (25.0-34.0) pg MCHC 32.2 (32.0-36.0) g/dL RDW Std Deviation 48.1 H (36.4-46.3) fL RDW Coeff of Sánchez 15.1 H (11.5-14.5) % Plt Count 268 (130-400) K/uL MPV 9.8 (9.4-12.4) fL Immature Gran % (Auto) 0.3 % Neut % (Auto) 65.5 % Lymph % (Auto) 23.3 % Parke % (Auto) 9.4 % Eos % (Auto) 0.9 % Baso % (Auto) 0.6 % Neut # (Auto) 5.83 (1.40-6.50) K/uL Lymph # (Auto) 2.08 (1.20-3.40) K/uL Parke # (Auto) 0.84 H (0.11-0.59) K/uL Eos # (Auto) 0.08 (0.00-0.50) K/uL Baso # (Auto) 0.05 (0.00-0.20) K/uL Immature Gran # (Auto) 0.03 (0.01-0.20) K/uL Sodium 139 (136-145) mmol/L Potassium 3.8 (3.5-5.1) mmol/L Chloride 105 (98-107) mmol/L Carbon Dioxide 27 (21-32) mmol/L Anion Gap 7 (3-11) BUN 12 (6-23) mg/dl Creatinine 0.90 (0.6-1.2) mg/dl Est Cr Clr Drug Dosing 60.5 ml/min eGFR 70.51 BUN/Creatinine Ratio 13.3 (10-20) Glucose 89 (70-99(Fasting)) mg/dl Calcium 8.9 (8.6-10.3) mg/dl Magnesium 2.0 (1.7-2.4) mg/dl Total Bilirubin 0.3 (0.2-1.0) mg/dl AST 19 (13-39) U/L ALT 14 (7-52) U/L Alkaline Phosphatase 47 (34-104) U/L Troponin I High Sens 2.9 (0-14) pg/ml Total Protein 7.4 (6.0-8.3) gm/dl Albumin 4.1 (3.4-5.0) gm/dl Globulin 3.3 (2.5-4.0) gm/dl Albumin/Globulin Ratio 1.2 (0.9-2) Lipase 20 (11-82) U/L TSH 0.829 (0.300-4.500) uIu/ml Urine Color Yellow Urine Appearance Clear (Clear) Urine pH 6.0 (4.5-7.5) Ur Specific [place] 1.019 (1.000-1.030) Urine Protein Negative (Negative) Urine Glucose (UA) Negative (Negative) Urine Ketones Trace H (Negative) Urine Blood Negative (Negative) Urine Nitrite Negative (Negative) Urine Bilirubin Negative (Negative) Urine Urobilinogen Negative (Negative) Ur Leukocyte Esterase Negative (Negative) Urine Comment Urine Opiates Screen Neg (Neg) Ur Methadone, Qual Neg (Neg) Urine Fentanyl Screen Neg (Neg) Urine Barbiturates Neg (Neg) Ur Phencyclidine (PCP) Neg (Neg) U Amphetamin/Meth Scrn Neg (Neg) MDMA (Ecstasy) Screen Pos H (Neg) U Benzodiazepines Scrn Neg (Neg) Ur Cocaine Metabolite Neg (Neg) U Marijuana (THC) Screen Neg (Neg) Ethyl Alcohol mg/dL < 10.0 (<10.0) mg/dl Imaging Data Radiologist's Impression: KUB X-Ray 11/13/24 22:19 Exam(s): XR KUB EXAM: XR Abdomen, 1 View CLINICAL HISTORY: Reason for exam: abd pains. TECHNIQUE: Frontal supine view of the abdomen/pelvis. COMPARISON: 10/13/2024 FINDINGS: Gastrointestinal tract: There is gaseous distention of the stomach which is nondilated. Small amount of gas throughout nondilated small bowel and colon. No dilated bowel loops are identified. Bones/joints: Mild degenerative changes in the lumbar spine. No acute fracture. Soft tissues: There are surgical clips in the right upper quadrant. Other findings: No abnormal gas collections are identified. IMPRESSION: Small amount of gas throughout nondilated small bowel and colon. No dilated bowel loops are identified. Electronically signed by: Salomon Kwon MD 11/13/24 23:42 PM [facility] Narrative Physical exam and history were performed. Nursing notes, EMR, and Medication List were personally reviewed. No social concerns were identified as barriers to patients care. History was provided by the Patient and who was at bedside. Patient appears to have chronic abdominal pain bringing her to the ER. She does not appear toxic on arrival. Patient has been evaluated numerous times over the past few years with these complaints, and has had significant workup in the past 3 weeks. IV access was established and labs were obtained. Patient was given IV Protonix and a GI cocktail here in the ER. She was hydrated with normal saline. Patient's blood work is as above and was reviewed. She does not have a significantly elevated white blood cell count, gross anemia, bandemia, or significant electrolyte imbalance. Lipase and transaminases not diagnostic. Troponin is negative. TSH shows euthyroid state. KUB reviewed by myself and radiology showing no acute process. Patient does not seem to have an acute life-threatening process bringing her to the ER. I did review her findings at her at length. Patient and have a high level of frustration due to the patient's chronic abdominal pain without distinct diagnosis. Patient requested to speak with my attending, and patient was seen by Dr. Butler at bedside. After discussion with Dr. Butler patient was evaluated by the hospitalist team. Please see the hospitalist team dictation for further patient course, plan, and disposition. The chart was completed utilizing [employer] Speech Voice Recognition Software. Grammatical errors, random word insertions, pronoun errors, and incomplete sentences are an occasional consequence of this system due to software limitations, ambient noise, and hardware issues. Any formal questions or concerns about the content, text, or information contained within the body of this dictation should be directly addressed to the provider for clarification. Impression & Plan Generalized abdominal pain Discharge Plan Visit Data Chief Complaint: Abdominal Pain Stated Complaint: ABD PAIN ED Provider: Jose Juan Butler ED Midlevel Provider: Dallin Calle Discharge Problem: Generalized abdominal pain Patient Disposition: Being Evaluated by Hospitalist Condition: Good Discharge Instructions Interventions: ED Discharge Assessment Last Done: 11/14/24 03:50
[2024-11-13 23:01] LABS: Amphetamines+Metham, Urine Neg (Neg); MDMA (Ecstacy), Urine Pos (Neg); Marijuana, Urine Neg (Neg)
[2024-11-13 23:09] LABS: Thyroid Stimulating Hormone 0.829 uIu/ml (0.300-4.500)
--- NOTE | 2024-11-13 23:42 | XRay Report ---
Exam(s): XR KUB EXAM: XR Abdomen, 1 View CLINICAL HISTORY: Reason for exam: abd pains. TECHNIQUE: Frontal supine view of the abdomen/pelvis. COMPARISON: 10/13/2024 FINDINGS: Gastrointestinal tract: There is gaseous distention of the stomach which is nondilated. Small amount of gas throughout nondilated small bowel and colon. No dilated bowel loops are identified. Bones/joints: Mild degenerative changes in the lumbar spine. No acute fracture. Soft tissues: There are surgical clips in the right upper quadrant. Other findings: No abnormal gas collections are identified. IMPRESSION: Small amount of gas throughout nondilated small bowel and colon. No dilated bowel loops are identified. Electronically signed by: Salomon Kwon MD 11/13/24 23:42 PM
[2024-11-14] MEDS: DICYCLOMINE HCL 10 MG CAP PO ONE (01:32)
[2024-11-14] MEDS: SUCRALFATE 1 GM/10 ML UDC PO STA (01:33)
[2024-11-14] MEDS: HYDROmorphone INJ 0.5 MG/0.5 ML SYR IV STA ×2 (01:45→20:39)
--- NOTE | 2024-11-14 02:19 | Emergency Department Note ---
ED Visit Note I was consulted by the Advanced Practice Provider, Dallin Calle PA-C. I saw the patient personally and performed a substantive portion of the visit. This includes aspects of the HPI, MDM, diagnostic interpretations, and disposition/plan. .
--- NOTE | 2024-11-14 03:12 | History & Physical Report ---
Date of Service November 14, 2024 Assessment & Plan (1) Generalized abdominal pain: (2) Depression: (3) Epigastric pain: (4) Allergic rhinitis: (5) Gastritis: (6) Hypertension: (7) Fibromyalgia: (8) Esophageal reflux: (9) Irritable bowel syndrome: (10) Hypothyroidism: (11) Hyperlipidemia: Plan 64yo female with history of recurrent UTIs, prior kidney stones, fibromyalgia, right-sided kidney cancer s/p ablation procedure, hypothyroidism, remote h/o PE, and hyperlipidemia presents with acute on chronic abdominal pain: #Abdominal Pain, acute on chronic // #Gastritis: Unclear etiology, thorough work up most notable for gastritis, for which patient has been on acid suppression therapy with PPI and sucralfate Patient reports positive response to Xifaxan in the past - while SIBO testing was negative, consider trial of Xifaxan for IBS GI consulted - will defer to GI recs, no med changes made on admission Continue home meds: Florastor, Bentyl PRN Tylenol for moderate pain, Dilaudid 0.25mg Q6H PRN for breakthrough pain Maalox PRN for dyspepsia, Zofran PRN for N/V #Depression/Anxiety: Continue Wellbutrin, Xanax PRN #HLD: Continue Atorvastatin, CoQ10 #Hypothyroidism: Continue levothyroxine #Allergic Rhinitis: Continue Flonase #Asthma: Continue Symbicort Dispo: Admit-Obs med/surg FEN/GI: LR@80mL/h x1L, lactose intolerant diet VTE ppx: Lovenox Full Code History of Present Illness Primary Care Provider: La Nena Garrett MD 64yo female with history of recurrent UTIs, prior kidney stones, fibromyalgia, right-sided kidney cancer s/p ablation procedure, hypothyroidism, remote h/o PE, and hyperlipidemia presents with acute on chronic abdominal pain. Patient had breath test for SIBO on 11/08. Leading up to this, she had to temporarily hold her GI meds, resulting in exacerbation of abdominal pain. Meds restarted after breath test (which was negative). Sx have actually gotten progressively worse over this week with sudden exacerbation today. Pain located primarily in epigastric region, constant achey sensation with vague radiation into RLQ/LLQs. Pain worse when fasting, generally improves with eating. Past few days, patient has had some nausea, no vomiting. 1 episode of diarrhea this AM. At home, patient has been taking Tylenol and Bentyl for pain relief, minimal improvement. Patient has had very extensive work up in the recent past, including CT A/P, MRCP, and EGD. MRCP w/ no pancreatic ductal dilatation, no CBD bile duct calculi. EGD notable primarily for mild gastritis. Last colo on file 2019, recommended 3 year repeat - patient unsure if this was done. ED Course: VSS, labs unremarkable UDS +MDMA (pt on Wellbutrin) KUB unremarkable Allergies Allergy/AdvReac Type Severity Reaction Status Date / Time bacitracin Allergy Intermediate Hives Verified 11/13/24 23:06 [From Neosporin ([id number])] famotidine Allergy Intermediate Hives Verified 11/13/24 23:06 neomycin Allergy Intermediate Hives Verified 11/13/24 23:06 [From Neosporin ([id number])] polymyxin B Allergy Intermediate Hives Verified 11/13/24 23:06 [From Neosporin ([id number])] amoxicillin [From Augmentin] AdvReac Intermediate Caused C. Verified 11/13/24 23:06 diff clavulanic acid AdvReac Intermediate Caused C. Verified 11/13/24 23:06 [From Augmentin] diff lactose AdvReac Intermediate Gastrointestinal Verified 11/13/24 23:06 Upset olmesartan AdvReac Intermediate Diarrhea Verified 11/13/24 23:06 vilanterol AdvReac Intermediate Swelling Verified 11/13/24 23:06 [From Breo Ellipta] of legs/feet and GI Upset levofloxacin AdvReac Unknown tendinopathy Verified 11/13/24 23:06 - undetermined if med was cause. Home Medications Medication Instructions Recorded Confirmed Type vitamin E 268 mg (400 unit) capsule 400 unit PO QAM 09/06/18 11/13/24 History inhalational spacing device #1 ea 09/22/18 11/08/24 Rx (Vortex Holding Chamber) ascorbate calcium (vitamin C) 500 1,000 mg PO QAM 08/06/20 11/13/24 History mg tablet albuterol sulfate 90 mcg/actuation 2 puff inhalation Q4H PRN 05/19/22 11/13/24 Rx aerosol inhaler (Ventolin HFA) Shortness Of Breath Or Wheezing #18 grams bupropion HCl 150 mg tablet,12 hr 150 mg PO BID #180 ea 07/11/22 11/13/24 Rx sustained-release fluticasone propionate 50 1 spray intranasal DAILY 30 days 07/22/22 11/13/24 Rx mcg/actuation nasal #48 grams spray,suspension atorvastatin 20 mg tablet 20 mg PO HS #90 tabs 11/13/22 11/13/24 Rx levocetirizine 5 mg tablet 5 mg PO HS 02/13/23 11/13/24 History levothyroxine 88 mcg tablet 88 mcg PO QAM 02/13/23 11/13/24 History gabapentin 100 mg capsule 100 mg PO BID #30 caps 04/19/23 11/13/24 Rx budesonide-formoterol HFA 80 2 inh inhalation BID #30.59 grams 05/07/23 11/13/24 Rx mcg-4.5 mcg/actuation aerosol inhaler (Symbicort) activated charcoal 260 mg capsule 260 mg PO QDL 06/18/23 11/13/24 History coQ10 (ubiquinol) 100 mg capsule 100 mg PO QAM 06/18/23 11/13/24 History peppermint oil 90 mg 180 mg PO BID 06/18/23 11/13/24 History capsule,delayed,extended release (IBgard) Saccharomyces boulardii 250 mg 250 mg PO BID #20 caps 06/26/23 11/13/24 Rx capsule (Florastor) cyclosporine 0.09 % eye drops in a 1 drp OPB BID 08/22/23 11/13/24 History dropperette (Cequa) cholecalciferol (vitamin D3) 50 50 mcg PO QAM 03/23/24 11/13/24 History mcg (2,000 unit) tablet (Vitamin D3) dicyclomine 10 mg capsule 10 mg PO TID PRN Abd pain 03/23/24 11/13/24 History estradiol 0.01% (0.1 mg/gram) 0.25 appful vaginal 3XWK 03/23/24 11/13/24 History vaginal cream nystatin-triamcinolone 100,000 1 applic topical BID PRN 03/23/24 11/13/24 History unit/gram-0.1 % topical ointment Flare/Irritation tamsulosin 0.4 mg capsule 0.4 mg PO QAM 03/23/24 11/13/24 History fluconazole 150 mg tablet 150 mg PO Q48H 6 days #3 tabs 04/21/24 11/13/24 Rx ondansetron 4 mg disintegrating 4 mg PO Q6H PRN nausea and 08/12/24 11/13/24 Rx tablet vomiting #30 tabs nystatin-triamcinolone 100,000 1 applic topical BID PRN SKIN 10/14/24 11/13/24 History unit/gram-0.1 % topical ointment IRRITATIONS propranolol 60 mg capsule,24 60 mg PO HS 10/15/24 11/13/24 History hr,extended release alprazolam 0.25 mg tablet 0.25 mg PO Q8H PRN anxiety #10 tabs 10/20/24 11/13/24 Rx pantoprazole 40 mg tablet,delayed 40 mg PO BID #60 tabs 10/20/24 11/13/24 Rx release sucralfate 1 gram tablet 1 g PO BID 30 days #60 tabs 10/20/24 11/13/24 Rx Past Med/Surg History Problem List (Updated 11/14/24 @ 00:54 by Dallin Calle PA-C) Generalized abdominal pain (Acute) Enterocolitis Anemia Abnormal computerized axial tomography of liver (Acute) Vulvar burning Chronic nausea Drug allergy Atrophic vaginitis Right kidney mass Recurrent UTI Depression Abnormal findings on imaging of biliary tract Abdominal pain (Acute) Bilateral kidney stones Epigastric pain Hip tendinitis Calcium kidney stone Hamstring tendinitis Arthritis of hip Hx of diverticulitis of colon Greater trochanteric pain syndrome Palpitations Chronic venous insufficiency Pain of right sacroiliac joint Helicobacter pylori infection C. difficile colitis Allergic rhinitis (Chronic) Idiopathic urticaria (Acute) Chronic sinusitis (Chronic) Impaired fasting glucose (Chronic) Medical History Urinary tract infection abx completed 06/28 or 06/30/23 - feeling better, all symptoms gone except some pressure. Pre op edu rev. Diverticulosis hx Gastritis History of gastric polyp History of colon polyps Vertigo none for over a month Kidney stones current Renal mass [place] [facility] aware, monitoring Paresthesia of upper extremity sometimes arms Diarrhea current : on occ /finished abx recently. History of Helicobacter pylori infection Hx of Clostridium difficile infection Remote hx approximately 30 years ago History of COVID-19 03/19/2023 ([place], [place]) > resolved 11/2021- fatigue, congestion, cough, sore throat > resolved pt reports has had a total of 3 times : 1st time in 2019 ? Hx of melanoma of skin Pulmonary embolism Remote hx approximately 30 years ago, after SUMAN (blood thinners x 3 months) Acute diverticulitis listed in differential diagnosis 04/14/23 by hospitalist, not included on discharge summary Sciatica hx COPD (chronic obstructive pulmonary disease) well controlled per pt, rare res inh use Mild reactive airways disease Depression with anxiety Esophageal reflux Fibromyalgia Hypertension Irritable bowel syndrome Hypothyroidism Hyperlipidemia History of asthma Surgical History History of lithotripsy History of cystoscopy Hx of vascular surgery Dr Morales [facility] 07/2022 Distal LT GSV accessed under ultrasound guidance with placement of 4Fr sheath History of esophagogastroduodenoscopy (EGD) Hx of cataract extraction Hx of melanoma excision stomach S/P dilation and curettage History of cryosurgery History of colonoscopy (10/12/19) 4 polyps removed, [facility], Dr. Roque S/P tonsillectomy S/P sinus surgery S/P SUMAN-BSO S/P laparoscopic cholecystectomy S/P appendectomy Family History Mother Diabetes Father Heart disease Other Asthma Cancer Gallbladder disease Hypertension Stroke Denies family history of Ovarian cancer Myocardial infarction Breast cancer Colorectal cancer Colonic polyp Uterine cancer Social History Smoking Status: Former smoker Tobacco Type: Cigarettes Age Started Using Tobacco: 18; Age Quit Using Tobacco: 58; Second Hand Exposure: No; Do You Dip or Chew Tobacco: No; Tobacco Cessation Education Requested by Patient: No Hx Alcohol Use: No Hx Substance Use: No Preferred Language: Arabic Communication Ability: Effective Visual Impairment: No Limitations Hearing Ability: Normal Commercial Credit Lead Required: No Beliefs That Will Affect Care: None marital status: Current Living Situation: Spouse Current Living Situation Comment: [facility] current occupational status: disabled Other Information That Helps Us Care for You: No Feels Safe at Home: Yes Safety Concerns: Feels Safe At This Time Childhood Exposure to Second-Hand Smoke: Yes Dental Care, Regularly: Yes Seatbelt Use: always Sunscreen Use: Yes Do you think of yourself as: straight/heterosexual Sexual Activity: has been sexually active within the last 12 months Assistive Devices: Denture - Upper Review of Systems Review of Systems: as per HPI Physical Exam Physical Exam: Constitutional: no acute distress HEENT: NCAT, no conjunctival injection CV: extremities well-perfused, no LE edema Resp: lungs CTAB, no increased work of breathing GI: soft, nondistended, +epigastric TTP with voluntary guarding on deeper palpation, no rigidity. Bowel sounds normal. MSK: no gross deformities Skin: warm, dry, no rash appreciated Neuro: alert, oriented, no focal neurologic deficit appreciated Results & Data Results & Data Vital Signs (Past 12 Hours) Vital Signs Temp Pulse Pulse Resp BP BP Pulse Ox 11/14/24 02:01 72 11/14/24 01:00 82 18 197/75 H 95 11/13/24 23:00 36.5 C 66 18 165/90 H 95 11/13/24 22:18 77 95 11/13/24 22:05 78 11/13/24 21:49 36.4 C L 77 16 172/91 H 95 O2 Del Method 11/14/24 02:01 11/14/24 01:00 Room Air 11/13/24 23:00 Room Air 11/13/24 22:18 Room Air 11/13/24 22:05 11/13/24 21:49 Room Air Supervising Physician Co-Signing Physician Notes Attending addendum: I have physically seen this patient, have supervised the medical residents activities, and agree with the H&P unless as otherwise noted. Assessment and Plan: The patient is a 64-year-old female with past medical history including recurrent urinary tract infections, prior kidney stones, fibromyalgia, right- sided kidney cancer status post ablation procedure, hypothyroidism, remote history of PE, and hyperlipidemia. She presents with acute on chronic abdominal pain. Abdominal pain, acute on chronic/gastritis- Most recent EGD on 10/18/2024 with diffuse mild gastritis Continue pantoprazole 40 mg p.o. twice daily, Florastor, dicyclomine, and sucralfate. Unclear at this time reason for the patient's acute worsening of pain Will consult gastroenterology Acetaminophen 650 mg by mouth every 6 hours as needed for mild pain or fever Dilaudid 0.25 mg IV every 6 hours as needed breakthrough pain Zofran 4 mg IV every 6 hours as needed MRCP on 10/15/2024 shows stable mild biliary ductal dilatation compared to 2023, likely secondary to cholecystectomy CT of abdomen pelvis on 10/14/2024 shows interval prominent intrahepatic and extrahepatic ducts without discrete radiopaque choledocholithiasis or pancreatic head mass consideration for MRCP. Prominent air-fluid distended proximal large bowel without discrete mass, wall thickening or surrounding inflammatory changes. Depression/anxiety- Continue Wellbutrin Continue Xanax as needed Hyperlipidemia- Continue atorvastatin and co-Q10 Hypothyroidism- Continue levothyroxine Asthma/allergic rhinitis- Continue Symbicort and Flonase Resident Activity Tracking Resident Involvement: Resident Care Provided Care Provided: Adult Hospital Medicine (9) Irritable bowel syndrome Irritable bowel syndrome type: unspecified Qualified Code(s): K58.9 - Irritable bowel syndrome without diarrhea
[2024-11-14] MEDS ORDERED: MELATONIN 3 MG TAB PO PRN (04:49)
[2024-11-14] MEDS ORDERED: ALBUTEROL HFA 8 GM INHALER INH PRN (04:49)
[2024-11-14] MEDS: LACTATED RINGER'S 1,000 ML IV SCH (05:14)
[2024-11-14] MEDS: HYDROmorphone INJ 0.5 MG/0.5 ML SYR IV PRN (05:16)
--- NOTE | 2024-11-14 05:35 | Billing Data ---
Date of Service November 14, 2024 Coding Level of Care Code 63187 INT INP/OBS CARE
[2024-11-14] MEDS: LEVOTHYROXINE SODIUM 88 MCG TABLET PO SCH (06:25)
[2024-11-14] MEDS: CHOLECALCIFEROL 25 MCG (1000 UNITS) TAB PO SCH (07:19)
[2024-11-14] MEDS: FLUTICASONE PROPIONATE NA SPR 16 GM BTL SCH (07:19)
[2024-11-14] MEDS: FLUTICASONE/VILANTEROL 100/25MCG 14 PUFFS/INHALER INH SCH (07:20)
[2024-11-14] MEDS: SUCRALFATE 1 GM TAB PO SCH ×2 (07:20→12:55)
[2024-11-14] MEDS: GABAPENTIN 100 MG CAP PO SCH (07:21)
[2024-11-14] MEDS: ASCORBIC ACID 500 MG TAB PO SCH (07:21)
[2024-11-14] MEDS: TOCOPHERYL, DL-ALPHA 400 UNITS 180 MG CAP PO SCH (07:21)
[2024-11-14] MEDS: SACCHAROMYCES BOULARDII 250 MG CAP PO SCH (07:22)
[2024-11-14] MEDS: DICYCLOMINE HCL 10 MG CAP PO PRN (07:22)
[2024-11-14] MEDS ORDERED: NON-FORMULARY MEDICATION (Coq10 (Ubiquinol) 100 mg Capsule) PO SCH (09:00)
[2024-11-14] MEDS ORDERED: NON-FORMULARY MEDICATION (Peppermint Oil [Ibgard] 90 mg Capsule,Delayed,Extend.Release) PO SCH (09:00)
[2024-11-14] MEDS: ACETAMINOPHEN 325 MG TAB PO PRN (09:19)
--- NOTE | 2024-11-14 10:13 | Gastrointestinal Consultation ---
Date of Consultation November 14, 2024 Assessment & Plan (1) Generalized abdominal pain: Patient is a 64 year old female with acute on chronic abdominal pain that worsened in the setting of her holding medications for a SIBO breath test. she reports in the past that her symptoms were improved with flagyl or xifaxan which lead to the SIBO testing. Given that testing was negative, symptoms may be related to IBS or gastritis while off meds. - continue with protonix 40mg bid. - would not add famotidine given history of reported allergy. - increase her carafate to 1 gm qid. - if ongoing issues despite above, could consider trial of xifaxan 550mg TID x 14 days for component of IBS. - Patient would benefit from an outpatient colonoscopy with her primary Stone Crusher Operator at [facility] given her past medical history of adenomatous colon polyps. -Further recommendations to come with Supervising GI provider on medical rounds. Please see co-signature comments. Supervising Physician Co-Signing Physician Notes I personally saw and examined the patient. I have reviewed the chart and agree with the documentation provided by the MILITARY ADMINISTRATIVE TECHNICIAN including discussion about the assessment, treatment and plan. Briefly, 64 year old female with a history of recurrent UTIs, prior kidney stones, fibromyalgia, right-sided kidney cancer s/p ablation procedure, hypothyroidism, remote h/o PE, and hyperlipidemia presented to the ED on 11/14 with acute on chronic abdominal pain. she reports that her current pain worsened in the setting of holding her medications so she would be able to have SIBO testing on 11/08/24. the test was reportedly negative. Pain is in her epigastric region. she rates 10/10. she does have some nausea, but not emesis. Patient has had very extensive work up in the recent past, including CT A/P, MRCP, and EGD that was unremarkable for her issues. I would treat her empirically with Xifaxan and continue supportive care with PPI Carafate. If she does not improve repeat consider a CT scan. I suspect this is nonulcer dyspe psia with possible infectious enteritis. History of Present Illness Reason for Consultation: recurrent abdominal pain Requesting Physician: Joo Doran DO Attending Physician: Kodi Mroan MD History of Present Illness Patient is a 64 year old female with a history of recurrent UTIs, prior kidney stones, fibromyalgia, right-sided kidney cancer s/p ablation procedure, hypothyroidism, remote h/o PE, and hyperlipidemia presented to the ED on 11/14 with acute on chronic abdominal pain. she reports that her current pain worsened in the setting of holding her medications so she would be able to have SIBO testing on 11/08/24. the test was reportedly negative. Pain is in her epigastric region. she rates 10/10. she does have some nausea, but not emesis. Patient has had very extensive work up in the recent past, including CT A/P, MRCP, and EGD that was unremarkable for her issues. The remainder of the GI ROS were unremarkable. 11/13/24 cbc unremarkable. CMP unremarkable. lipase 20. TSH 0.829. preliminary MDMA positive. EGD 10/18/24 - gastroesophageal junction polyp, mild diffuse inflammation characterized by erythema in gastric antrum/gastric body. multiple sessile fundic gland polyps found in gastric fundus and gastric body. the examined duodenum was normal. Pathology: Stomach, antrum and body, biopsy: - Chronic inactive gastritis, mild with reactive changes. - Helicobacter pylori immunohistochemistry stain: Negative. Stomach, fundic polyp, biopsy: - Inflamed gastric polyp. GE junction, polyp, biopsy: - Mildly inflamed columnar/cardia type mucosa. - Negative for intestinal metaplasia and dysplasia. - No definitive polyp identified. - No squamous mucosa present within specimen. FS 07/18/20 at [facility] diverticulosis. non bleeding internal hemorrhoids. Colonosocpy 2020 at [facility] shown colon polyps. Allergies Allergy/AdvReac Type Severity Reaction Status Date / Time bacitracin Allergy Intermediate Hives Verified 11/13/24 23:06 [From Neosporin ([id number])] famotidine Allergy Intermediate Hives Verified 11/13/24 23:06 neomycin Allergy Intermediate Hives Verified 11/13/24 23:06 [From Neosporin ([id number])] polymyxin B Allergy Intermediate Hives Verified 11/13/24 23:06 [From Neosporin ([id number])] amoxicillin [From Augmentin] AdvReac Intermediate Caused C. Verified 11/13/24 23:06 diff clavulanic acid AdvReac Intermediate Caused C. Verified 11/13/24 23:06 [From Augmentin] diff lactose AdvReac Intermediate Gastrointestinal Verified 11/13/24 23:06 Upset olmesartan AdvReac Intermediate Diarrhea Verified 11/13/24 23:06 vilanterol AdvReac Intermediate Swelling Verified 11/13/24 23:06 [From Ericao Ellipta] of legs/feet and GI Upset levofloxacin AdvReac Unknown tendinopathy Verified 11/13/24 23:06 - undetermined if med was cause. Home Medications Medication Instructions Recorded Confirmed Type vitamin E 268 mg (400 unit) capsule 400 unit PO QAM 09/06/18 11/13/24 History inhalational spacing device #1 ea 09/22/18 11/08/24 Rx (Vortex Holding Chamber) ascorbate calcium (vitamin C) 500 1,000 mg PO QAM 08/06/20 11/13/24 History mg tablet albuterol sulfate 90 mcg/actuation 2 puff inhalation Q4H PRN 05/19/22 11/13/24 Rx aerosol inhaler (Ventolin HFA) Shortness Of Breath Or Wheezing #18 grams bupropion HCl 150 mg tablet,12 hr 150 mg PO BID #180 ea 07/11/22 11/13/24 Rx sustained-release fluticasone propionate 50 1 spray intranasal DAILY 30 days 07/22/22 11/13/24 Rx mcg/actuation nasal #48 grams spray,suspension atorvastatin 20 mg tablet 20 mg PO HS #90 tabs 11/13/22 11/13/24 Rx levocetirizine 5 mg tablet 5 mg PO HS 02/13/23 11/13/24 History levothyroxine 88 mcg tablet 88 mcg PO QAM 02/13/23 11/13/24 History gabapentin 100 mg capsule 100 mg PO BID #30 caps 04/19/23 11/13/24 Rx budesonide-formoterol HFA 80 2 inh inhalation BID #30.59 grams 05/07/23 11/13/24 Rx mcg-4.5 mcg/actuation aerosol inhaler (Symbicort) activated charcoal 260 mg capsule 260 mg PO QDL 06/18/23 11/13/24 History coQ10 (ubiquinol) 100 mg capsule 100 mg PO QAM 06/18/23 11/13/24 History peppermint oil 90 mg 180 mg PO BID 06/18/23 11/13/24 History capsule,delayed,extended release (IBgard) Saccharomyces boulardii 250 mg 250 mg PO BID #20 caps 06/26/23 11/13/24 Rx capsule (Florastor) cyclosporine 0.09 % eye drops in a 1 drp OPB BID 08/22/23 11/13/24 History dropperette (Cequa) cholecalciferol (vitamin D3) 50 50 mcg PO QAM 03/23/24 11/13/24 History mcg (2,000 unit) tablet (Vitamin D3) dicyclomine 10 mg capsule 10 mg PO TID PRN Abd pain 03/23/24 11/13/24 History estradiol 0.01% (0.1 mg/gram) 0.25 appful vaginal 3XWK 03/23/24 11/13/24 History vaginal cream nystatin-triamcinolone 100,000 1 applic topical BID PRN 03/23/24 11/13/24 History unit/gram-0.1 % topical ointment Flare/Irritation tamsulosin 0.4 mg capsule 0.4 mg PO QAM 03/23/24 11/13/24 History fluconazole 150 mg tablet 150 mg PO Q48H 6 days #3 tabs 04/21/24 11/13/24 Rx ondansetron 4 mg disintegrating 4 mg PO Q6H PRN nausea and 08/12/24 11/13/24 Rx tablet vomiting #30 tabs nystatin-triamcinolone 100,000 1 applic topical BID PRN SKIN 10/14/24 11/13/24 History unit/gram-0.1 % topical ointment IRRITATIONS propranolol 60 mg capsule,24 60 mg PO HS 10/15/24 11/13/24 History hr,extended release alprazolam 0.25 mg tablet 0.25 mg PO Q8H PRN anxiety #10 tabs 10/20/24 11/13/24 Rx pantoprazole 40 mg tablet,delayed 40 mg PO BID #60 tabs 10/20/24 11/13/24 Rx release sucralfate 1 gram tablet 1 g PO BID 30 days #60 tabs 10/20/24 11/13/24 Rx Patient History Medical History Urinary tract infection abx completed 06/28 or 06/30/23 - feeling better, all symptoms gone except some pressure. Pre op edu rev. Diverticulosis hx Gastritis History of gastric polyp History of colon polyps Vertigo none for over a month Kidney stones current Renal mass [place] [facility] aware, monitoring Paresthesia of upper extremity sometimes arms Diarrhea current : on occ /finished abx recently. History of Helicobacter pylori infection Hx of Clostridium difficile infection Remote hx approximately 30 years ago History of COVID-19 03/19/2023 ([place], [place]) > resolved 11/2021- fatigue, congestion, cough, sore throat > resolved pt reports has had a total of 3 times : 1st time in 2019 ? Hx of melanoma of skin Pulmonary embolism Remote hx approximately 30 years ago, after SUMAN (blood thinners x 3 months) Acute diverticulitis listed in differential diagnosis 04/14/23 by hospitalist, not included on discharge summary Sciatica hx COPD (chronic obstructive pulmonary disease) well controlled per pt, rare res inh use Mild reactive airways disease Depression with anxiety Esophageal reflux Fibromyalgia Hypertension Irritable bowel syndrome Hypothyroidism Hyperlipidemia History of asthma Surgical History History of lithotripsy History of cystoscopy Hx of vascular surgery Dr Morales [facility] 07/2022 Distal LT GSV accessed under ultrasound guidance with placement of 4Fr sheath History of esophagogastroduodenoscopy (EGD) Hx of cataract extraction Hx of melanoma excision stomach S/P dilation and curettage History of cryosurgery History of colonoscopy (10/12/19) 4 polyps removed, [facility], Dr. Roque S/P tonsillectomy S/P sinus surgery S/P SUMAN-BSO S/P laparoscopic cholecystectomy S/P appendectomy Family History Mother Diabetes Father Heart disease Other Asthma Cancer Gallbladder disease Hypertension Stroke Denies family history of Ovarian cancer Myocardial infarction Breast cancer Colorectal cancer Colonic polyp Uterine cancer Social History Smoking Status: Former smoker Tobacco Type: Cigarettes Age Started Using Tobacco: 18; Age Quit Using Tobacco: 58; Second Hand Exposure: No; Do You Dip or Chew Tobacco: No; Hx Alcohol Use: No Hx Substance Use: No Preferred Language: Chinese Communication Ability: Effective Visual Impairment: No Limitations Hearing Ability: Normal Rn Residential Required: No Beliefs That Will Affect Care: None marital status: Current Living Situation: Spouse Current Living Situation Comment: [facility] current occupational status: disabled Feels Safe at Home: Yes Childhood Exposure to Second-Hand Smoke: Yes Dental Care, Regularly: Yes Seatbelt Use: always Sunscreen Use: Yes Do you think of yourself as: straight/heterosexual Sexual Activity: has been sexually active within the last 12 months Assistive Devices: None Review of Systems Review of Systems: All systems reviewed & are unremarkable except as noted in HPI & below Physical Exam Constitutional: WD/WN, vitals as above Respiratory: normal respiratory effort, lungs clear to auscultation Cardiovascular: Rate/Rhythm: regular rate and regular rhythm Gastrointestinal (Abdomen): epigastric tenderness to palpation, no guarding, soft, normal bowel sounds. Psychiatric: Orientation: alert and oriented x 3 Affect: euthymic affect Results & Data Vital Signs (Past 12 Hours) Vital Signs Temp Pulse Pulse Resp BP BP Pulse Ox 11/14/24 07:38 97.7 F 70 20 159/81 H 97 11/14/24 04:52 97.9 F 73 18 172/88 H 95 11/14/24 03:50 97.9 F 66 17 159/69 H 97 11/14/24 03:00 97.7 F 67 17 157/69 H 96 11/14/24 02:01 72 11/14/24 01:00 82 18 197/75 H 95 11/13/24 23:00 97.7 F 66 18 165/90 H 95 11/13/24 22:18 77 95 O2 Del Method 11/14/24 07:38 Room Air 11/14/24 04:52 Room Air 11/14/24 03:50 Room Air 11/14/24 03:00 Room Air 11/14/24 02:01 11/14/24 01:00 Room Air 11/13/24 23:00 Room Air 11/13/24 22:18 Room Air Coding Level of Care Code 34803 INT INP/OBS CARE 2/55MIN Diagnoses Generalized abdominal pain R10.84
[2024-11-14] MEDS ORDERED: ACTIVATED CHARCOAL PO SCH (11:30)
--- NOTE | 2024-11-14 11:43 | Electrocardiogram Report ---
Test Reason : Blood Pressure : */* mmHG Vent. Rate : 68 BPM Atrial Rate : 68 BPM P-R Int : 166 ms QRS Dur : 88 ms QT Int : 388 ms P-R-T Axes : 47 18 44 degrees QTcB Int : 412 ms Normal sinus rhythm Normal ECG When compared with ECG of 14-Oct-2024 14:40, Premature atrial complexes are no longer Present Confirmed by Jhon Gomes ([id number]) on 11/14/2024 11:42:39 AM Referred By: REFERRED SELF Confirmed By: Jhon Gomes
[2024-11-14] MEDS: ONDANSETRON INJ 2 MG/ML 2 ML VIAL IV PRN (12:52)
[2024-11-14] MEDS: ALUMINUM/MAGNESIUM SUSP 30 ML UDC PO PRN (16:31)
[2024-11-14] MEDS: ENOXAPARIN INJ 40 MG/0.4 ML SYR SQ SCH (20:21)
[2024-11-14] MEDS: PROPRANOLOL HCL 60 MG LA CAP PO SCH (20:21)
[2024-11-14] MEDS: ATORVASTATIN 20 MG TAB PO SCH (20:22)
--- NOTE | 2024-11-15 11:41 | Gastroenterology Progress Note ---
Date of Service November 15, 2024 Assessment & Plan (1) Generalized abdominal pain: Plan: Patient has had ongoing abdominal pain. she is requesting chronic antibiotic use, as she feels like this is the only thing that controls her pain. It is not clear what was being treated in the past for this (possible h pylori?), but would not recommend just using chronic antibiotics. - check stools for h pylori. if positive, would treat. - can give a trial of xifaxan 550mg TID x 2 weeks for possible IBS component of pain. starting this. - check a GES. -Further recommendations to come with Supervising GI provider on medical rounds. Please see co-signature comments. Admission and Anticipated Discharge Date Admission Date: November 14, 2024 Supervising Physician Co-Signing Physician Notes I personally saw and examined the patient. I have reviewed the chart and agree with the documentation provided by the CARPET TECHNICIAN including discussion about the assessment, treatment and plan. Briefly, still with pain but the main component keeping her in-house is her nausea. She is unable to eat. Will try to get a solid-phase gastric emptying study tomorrow. She has had a colonoscopy in 2019 and an EGD recently which were negative previous CTs have been negative-- we did start Xifaxan for empiric treatment of SIBO. Subjective Patient is complaining of ongoing abdominal pain. she does not feel better today. she has records of her past work up and tells me she was on chronic flagyl as it was felt she had chronic h pylori infection. she reports she has been found to have this multiple times in the past. she is requesting chronic antibiotic use but tells me she has not found someone who will continue to prescribe this for her since her past python consultant retired. Review of Systems Review of Systems: All systems reviewed & are unremarkable except as noted in HPI & below Physical Exam Constitutional: WD/WN, vitals as above Respiratory: normal respiratory effort, lungs clear to auscultation Cardiovascular: Rate/Rhythm: regular rate and regular rhythm Gastrointestinal (Abdomen): epigastric tenderness to palpation, no guarding, soft, normal bowel sounds. Psychiatric: Orientation: alert and oriented x 3 Affect: euthymic affect Results & Data Results & Data Vital Signs (Past 12 Hours) Vital Signs Temp Pulse Resp BP Pulse Ox O2 Del Method 11/15/24 07:19 97.3 F L 62 16 155/91 H 99 Room Air 11/14/24 23:44 97.3 F L 61 18 116/69 97 Room Air Coding Level of Care Code 76723 SUB INP/OBS CARE 2/35MIN Diagnoses Generalized abdominal pain R10.84
--- NOTE | 2024-11-15 11:58 | Hospitalist Progress Note ---
Date of Service November 15, 2024 Assessment & Plan (1) Generalized abdominal pain: Plan: -possible IBS related -starting xifaxan as per GI -r/o H.pylori as patient has had treatment in the past -f/u stool H.pylori -Continue home meds: Florastor, Bentyl PRN -Tylenol for moderate pain, Dilaudid 0.25mg Q6H PRN for breakthrough pain -Maalox PRN for dyspepsia, Zofran PRN for N/V (2) Depression: Plan: Continue Wellbutrin, Xanax PRN (3) Hypertension: Plan: -propranolol (4) Esophageal reflux: Plan: -protonix (5) Hypothyroidism: Plan: Continue levothyroxine (6) Hyperlipidemia: Plan: Continue Atorvastatin, CoQ10 Plan 64yo female with history of recurrent UTIs, prior kidney stones, fibromyalgia, right-sided kidney cancer s/p ablation procedure, hypothyroidism, remote h/o PE, and hyperlipidemia presents with acute on chronic abdominal pain: Admission and Anticipated Discharge Date Admission Date: November 14, 2024 Subjective Pt still complaining of generalized abdominal pain. Review of Systems Review of Systems: CONST: Negative for fever, body aches and chills. HENT: Negative for neck pain/stiffness, headache, congestion, sore throat, swelling. EYES: Negative for discharge/pain or vision changes. RESP: Negative for cough/hemoptysis and shortness of breath. CV: Negative chest pain, difficulty breathing, palpitations. ABD: Negative pain, nausea, vomiting. : Negative increase frequency, dysuria, blood in urine or stool. MUSC: Negative for muscle aches, edema. SKIN: Negative rash, lesions/sores. NEURO: Negative headache, dizziness, weakness. Physical Exam Physical Exam: GENERAL APPEARANCE NAD, activity normal for age, well developed/ well nourished, no cyanosis, pallor, or diaphoresis. EYES lids/conjunctiva normal. EARS/NOSE/THROAT Mucous membranes moist, nares normal, lips/teeth normal uvula midline without oral pharyngeal erythema, exudate or swelling TMs normal bilaterally. No lymphangitis/lymphedema. HEAD/NECK normocephalic atraumatic, no facial trauma, neck is supple. RESPIRATORY respiratory effort normal, speaks in full sentences, no tripod position, no accessory muscle use. Lungs clear to auscultation without rhonchi, wheezes, rales CARDIAC Regular rate and rhythm, no edema. ABDOMINAL Soft, ND/NT. No evidence of fluid wave. No pulsatile masses on exam, rebound tenderness, Miller sign or pain over Mcburney's point. MUSCLES/EXTREMITIES No abnormal range of motion, no swelling. SKIN Warm, pink and dry. No rashes, dermatoses, petechiae or lesions. NEUROLOGICAL Speech is clear and appropriate. Normal level of consciousness. Gait and coordination are normal. 5/5 strength in all extremities. PSYCH Normal mood and affect. Judgement/competence is appropriate Results & Data Results & Data Vital Signs (Past 12 Hours) Vital Signs Temp Pulse Resp BP Pulse Ox O2 Del Method 11/15/24 07:19 36.3 C L 62 16 155/91 H 99 Room Air PG Care Time/CCT Total # of Minutes Spent Total Time Spent with Patient: Total time spent is greater than 50% in coordination of care (as documented) at patient's floor/unit and/or counseling patient: Coding Level of Care Code 68622 SUB INP/OBS CARE 2/35MIN Diagnoses Generalized abdominal pain R10.84 Depression F32.A Hypertension I10 Esophageal reflux K21.9 Hypothyroidism E03.9 Hyperlipidemia E78.5
[2024-11-15] MEDS: POLYETHYLENE (MIRALAX) 17 GM PACK PO PRN (18:04)
--- NOTE | 2024-11-16 11:03 | Gastroenterology Progress Note ---
Date of Service November 16, 2024 Assessment & Plan (1) Generalized abdominal pain: (2) Constipation: Plan Patient with some worsening of her pain in the setting of constipation. Constipation likely playing a factor in symptoms. - change her miralax from as needed to a daily dosing. - continue xifaxan 550mg BID. - will have GES done when able. She will need to hold pain medications and be NPO for testing. Admission and Anticipated Discharge Date Admission Date: November 15, 2024 Supervising Physician Co-Signing Physician Notes I personally saw and examined the patient. I have reviewed the chart and agree with the documentation provided by the PILOT SUBMERSIBLE including discussion about the assessment, treatment and plan. Briefly, still with pain, constipation and nausea. Miralax to aid and if no benefit, mg citrate. NPO p mn for ges and no pain meds after 9 pm. use zofran for nausea. Subjective patient is tearful today. she feels constipated. she has not moved her bowels in a few days. currently drinking some miralax. she admits to ongoing stomach pain. she was to have GES today but she had eaten this morining and pain medications were not held. Review of Systems Review of Systems: All systems reviewed & are unremarkable except as noted in HPI & below Physical Exam Constitutional: WD/WN, vitals as above Respiratory: normal respiratory effort, lungs clear to auscultation Cardiovascular: Rate/Rhythm: regular rate and regular rhythm Gastrointestinal (Abdomen): diffuse tenderness, no guarding, soft, normal bowel sounds. Psychiatric: Orientation: alert and oriented x 3 Affect: euthymic affect Results & Data Results & Data Vital Signs (Past 12 Hours) Vital Signs Temp Pulse Resp BP Pulse Ox O2 Del Method 11/16/24 07:22 97.8 F 61 16 134/81 96 Room Air 11/15/24 23:19 97.5 F L 63 16 146/78 H 95 Room Air Coding Level of Care Code 66943 SUB INP/OBS CARE 2/35MIN Diagnoses Generalized abdominal pain R10.84 Constipation K59.00
--- NOTE | 2024-11-16 11:34 | Hospitalist Progress Note ---
Date of Service November 16, 2024 Assessment & Plan (1) Generalized abdominal pain: Plan: -possible IBS related -con't xifaxan as per GI -r/o H.pylori as patient has had treatment in the past -f/u stool H.pylori -Continue home meds: Florastor, Bentyl PRN -Tylenol for moderate pain, Dilaudid 0.25mg Q6H PRN for breakthrough pain -Maalox PRN for dyspepsia, Zofran PRN for N/V -mirlax for constipation -GES pending (2) Depression: Plan: Continue Wellbutrin, Xanax PRN (3) Hypertension: Plan: -propranolol (4) Esophageal reflux: Plan: -protonix (5) Hypothyroidism: Plan: Continue levothyroxine (6) Hyperlipidemia: Plan: Continue Atorvastatin, CoQ10 Plan 64yo female with history of recurrent UTIs, prior kidney stones, fibromyalgia, right-sided kidney cancer s/p ablation procedure, hypothyroidism, remote h/o PE, and hyperlipidemia presents with acute on chronic abdominal pain: Admission and Anticipated Discharge Date Admission Date: November 15, 2024 Subjective Pt still feeling abdominal pain and constipation. Review of Systems Review of Systems: CONST: Negative for fever, body aches and chills. HENT: Negative for neck pain/stiffness, headache, congestion, sore throat, swelling. EYES: Negative for discharge/pain or vision changes. RESP: Negative for cough/hemoptysis and shortness of breath. CV: Negative chest pain, difficulty breathing, palpitations. ABD: Negative pain, nausea, vomiting. : Negative increase frequency, dysuria, blood in urine or stool. MUSC: Negative for muscle aches, edema. SKIN: Negative rash, lesions/sores. NEURO: Negative headache, dizziness, weakness. Physical Exam Physical Exam: GENERAL APPEARANCE NAD, activity normal for age, well developed/ well nourished, no cyanosis, pallor, or diaphoresis. EYES lids/conjunctiva normal. EARS/NOSE/THROAT Mucous membranes moist, nares normal, lips/teeth normal uvula midline without oral pharyngeal erythema, exudate or swelling TMs normal bilaterally. No lymphangitis/lymphedema. HEAD/NECK normocephalic atraumatic, no facial trauma, neck is supple. RESPIRATORY respiratory effort normal, speaks in full sentences, no tripod position, no accessory muscle use. Lungs clear to auscultation without rhonchi, wheezes, rales CARDIAC Regular rate and rhythm, no edema. ABDOMINAL Soft, ND/NT. No evidence of fluid wave. No pulsatile masses on exam, rebound tenderness, Miller sign or pain over Mcburney's point. MUSCLES/EXTREMITIES No abnormal range of motion, no swelling. SKIN Warm, pink and dry. No rashes, dermatoses, petechiae or lesions. NEUROLOGICAL Speech is clear and appropriate. Normal level of consciousness. Gait and coordination are normal. 5/5 strength in all extremities. PSYCH Normal mood and affect. Judgement/competence is appropriate Results & Data Results & Data Vital Signs (Past 12 Hours) Vital Signs Temp Pulse Resp BP Pulse Ox O2 Del Method 11/16/24 07:22 36.6 C 61 16 134/81 96 Room Air PG Care Time/CCT Total # of Minutes Spent Total Time Spent with Patient: Total time spent is greater than 50% in coordination of care (as documented) at patient's floor/unit and/or counseling patient: Coding Level of Care Code 08897 SUB INP/OBS CARE 2/35MIN Diagnoses Generalized abdominal pain R10.84 Depression F32.A Hypertension I10 Esophageal reflux K21.9 Hypothyroidism E03.9 Hyperlipidemia E78.5
[2024-11-16 11:56] LABS: Appearance Urine Clear (Clear); Glucose Urine UA Negative (Negative)
[2024-11-16] MEDS: MAGNESIUM CITRATE 296 ML/BTL PO STA (13:56)
[2024-11-16] MEDS ORDERED: PROCHLORPERAZINE 10 MG in SYRINGE 8 ML IV PRN (16:39)
[2024-11-16] MEDS: diazePAM 5 MG/ML 10ML VIAL IV STA (17:06)
--- NOTE | 2024-11-16 17:31 | CT Scan Report ---
Clinical History: Abdominal pain Technique: Axial computed tomography images were obtained of the abdomen and pelvis without intravenous contrast. Comparison is made to the prior CT dated 10/14/2024 Findings: The liver is overall of normal size, attenuation, and contour with no sign of cirrhosis or significant fatty infiltration. No definite liver mass lesion is seen on this noncontrast study. The gallbladder has been removed. There is unchanged bile duct prominence, likely due to the postcholecystectomy state The spleen is of normal size. No focal splenic lesion is evident. The pancreas appears normal with no sign of acute or chronic pancreatitis and no mass lesion noted. The pancreatic duct is of normal caliber. The adrenal glands appear unremarkable. No renal or proximal ureteral calculi are seen. There is no hydronephrosis or perinephric stranding. No definite renal mass lesion is identified. The aorta is of normal caliber. No abdominal adenopathy is seen. The stomach appears normal. There is no sign of small bowel obstruction. There is diverticulosis without evidence of diverticulitis. There is no sign of appendicitis. No free intraperitoneal fluid or air is identified. No distal ureteral or bladder calculi are seen. No obvious bladder mass lesion is evident. The iliac arteries are of normal caliber. No pelvic adenopathy is noted. The uterus has been removed and The lungs bases appear clear. Lumbar scoliosis and degenerative disc disease is seen. There is left worse than right hip osteoarthritis. No fracture is identified. No focal osseous lesion is seen Impression: Diverticulosis without evidence of diverticulitis Electronically signed by Pavan Cornell 11-16-2024 5:30 PM
--- NOTE | 2024-11-17 11:29 | Hospitalist Progress Note ---
Date of Service November 17, 2024 Assessment & Plan (1) Generalized abdominal pain: Plan: -possible IBS related -con't xifaxan as per GI -r/o H.pylori as patient has had treatment in the past -f/u stool H.pylori -Continue home meds: Florastor, Bentyl PRN -Tylenol for moderate pain, Dilaudid 0.25mg Q6H PRN for breakthrough pain -Maalox PRN for dyspepsia, Zofran PRN for N/V -mirlax for constipation -CT a/p shows diverticulosis -GES this am (2) Depression: Plan: Continue Wellbutrin, Xanax PRN (3) Hypertension: Plan: -propranolol (4) Esophageal reflux: Plan: -protonix (5) Hypothyroidism: Plan: Continue levothyroxine (6) Hyperlipidemia: Plan: Continue Atorvastatin, CoQ10 Plan 64yo female with history of recurrent UTIs, prior kidney stones, fibromyalgia, right-sided kidney cancer s/p ablation procedure, hypothyroidism, remote h/o PE, and hyperlipidemia presents with acute on chronic abdominal pain: Admission and Anticipated Discharge Date Admission Date: November 15, 2024 Subjective Pt had GES this am, stating her usual pain symptoms. Review of Systems Review of Systems: CONST: Negative for fever, body aches and chills. HENT: Negative for neck pain/stiffness, headache, congestion, sore throat, swelling. EYES: Negative for discharge/pain or vision changes. RESP: Negative for cough/hemoptysis and shortness of breath. CV: Negative chest pain, difficulty breathing, palpitations. ABD: Negative pain, nausea, vomiting. : Negative increase frequency, dysuria, blood in urine or stool. MUSC: Negative for muscle aches, edema. SKIN: Negative rash, lesions/sores. NEURO: Negative headache, dizziness, weakness. Physical Exam Physical Exam: GENERAL APPEARANCE NAD, activity normal for age, well developed/ well nourished, no cyanosis, pallor, or diaphoresis. EYES lids/conjunctiva normal. EARS/NOSE/THROAT Mucous membranes moist, nares normal, lips/teeth normal uvula midline without oral pharyngeal erythema, exudate or swelling TMs normal bilaterally. No lymphangitis/lymphedema. HEAD/NECK normocephalic atraumatic, no facial trauma, neck is supple. RESPIRATORY respiratory effort normal, speaks in full sentences, no tripod position, no accessory muscle use. Lungs clear to auscultation without rhonchi, wheezes, rales CARDIAC Regular rate and rhythm, no edema. ABDOMINAL Soft, ND/NT. No evidence of fluid wave. No pulsatile masses on exam, rebound tenderness, Miller sign or pain over Mcburney's point. MUSCLES/EXTREMITIES No abnormal range of motion, no swelling. SKIN Warm, pink and dry. No rashes, dermatoses, petechiae or lesions. NEUROLOGICAL Speech is clear and appropriate. Normal level of consciousness. Gait and coordination are normal. 5/5 strength in all extremities. PSYCH Normal mood and affect. Judgement/competence is appropriate Results & Data Results & Data Vital Signs (Past 12 Hours) Vital Signs Temp Pulse Resp BP Pulse Ox O2 Del Method 11/17/24 07:14 36.4 C L 71 18 117/68 98 Room Air PG Care Time/CCT Total # of Minutes Spent Total Time Spent with Patient: Total time spent is greater than 50% in coordination of care (as documented) at patient's floor/unit and/or counseling patient: Coding Level of Care Code 59351 SUB INP/OBS CARE 2/35MIN Diagnoses Generalized abdominal pain R10.84 Depression F32.A Hypertension I10 Esophageal reflux K21.9 Hypothyroidism E03.9 Hyperlipidemia E78.5
[2024-11-17] MEDS: POLYETHYLENE (MIRALAX) 17 GM PACK PO SCH (12:12)
--- NOTE | 2024-11-17 13:29 | Nuclear Medicine Report ---
Nuclear gastric emptying study: CLINICAL HISTORY: Abdominal pain. COMPARISON STUDY: CT of the abdomen and pelvis November 16, 2024. TECHNIQUE: Following the oral administration of 1 mCi of technetium 99m sulfur colloid in egg sandwic h and 8 ounces of water, static abdominal images were obtained anteriorly and posteriorly at 0 minute s, 1 hour, 2 hour, and 4 hour time intervals. Gastric emptying was calculated utilizing the geometric mean method. FINDINGS: There is approximately 80% gastric activity remaining at the 1 hour time interval (normal i s less than 90%), 57% at the 2 hour time interval (normal is less than 60%), and 15% remaining at the 4 hour time interval (normal is less than 10%). IMPRESSION: Mildly delayed gastric emptying at the 4 hour time point. ACT 112: Negative or not required by law. Electronically signed by: Americo Joya M.D. 11/17/2024 1:28 PM
--- NOTE | 2024-11-17 15:46 | Communication Note ---
Date of Service: November 17, 2024 The gastric emptying scan showed mild delay in her gastric emptying and she has some delay in the proximal phase as well. Start Reglan 10 mg 1 p.o. twice daily avoid narcotics and use Bentyl as needed.
[2024-11-17] MEDS: HYDROmorphone INJ 0.5 MG/0.5 ML SYR IV PRN (17:44)
[2024-11-17 23:09] VITALS: O2SAT 95
[2024-11-18 00:32] LABS: MDA negative; MDEA negative; MDMA (Ecstasy) Urine, Confirm negative
[2024-11-18 07:52] VITALS: BP 115/71; PULSE 65; RESP 16; TEMP 97.5
[2024-11-18] MEDS: METOCLOPRAMIDE HCL 10 MG TABLET PO SCH (08:33)
--- NOTE | 2024-11-18 09:47 | Discharge Summary ---
Discharge Summary Date of Service November 18, 2024 Principal Dx & Hospital Course #1 = Principal Diagnosis (1) Generalized abdominal pain: -possible IBS related -con't xifaxan as per GI -r/o H.pylori as patient has had treatment in the past -f/u stool H.pylori -Continue home meds: Florastor, Bentyl PRN -Tylenol for moderate pain, Dilaudid 0.25mg Q6H PRN for breakthrough pain -Maalox PRN for dyspepsia, Zofran PRN for N/V -mirlax for constipation -CT a/p shows diverticulosis -GES show mild delay -GI recommending reglan 10mg BID -pt stating improvement in symptoms prior to d/c (2) Depression: Continue Wellbutrin, Xanax PRN (3) Hypertension: -propranolol (4) Esophageal reflux: -protonix (5) Hypothyroidism: Continue levothyroxine (6) Hyperlipidemia: Continue Atorvastatin, CoQ10 Plan 64yo female with history of recurrent UTIs, prior kidney stones, fibromyalgia, right-sided kidney cancer s/p ablation procedure, hypothyroidism, remote h/o PE, and hyperlipidemia presents with acute on chronic abdominal pain: Admission HPI Per Admitting Provider 64yo female with history of recurrent UTIs, prior kidney stones, fibromyalgia, right-sided kidney cancer s/p ablation procedure, hypothyroidism, remote h/o PE, and hyperlipidemia presents with acute on chronic abdominal pain. Patient had breath test for SIBO on 11/08. Leading up to this, she had to temporarily hold her GI meds, resulting in exacerbation of abdominal pain. Meds restarted after breath test (which was negative). Sx have actually gotten progressively worse over this week with sudden exacerbation today. Pain located primarily in epigastric region, constant achey sensation with vague radiation into RLQ/LLQs. Pain worse when fasting, generally improves with eating. Past few days, patient has had some nausea, no vomiting. 1 episode of diarrhea this AM. At home, patient has been taking Tylenol and Bentyl for pain relief, minimal improvement. Patient has had very extensive work up in the recent past, including CT A/P, MRCP, and EGD. MRCP w/ no pancreatic ductal dilatation, no CBD bile duct calculi. EGD notable primarily for mild gastritis. Last colo on file 2019, recommended 3 year repeat - patient unsure if this was done. ED Course: VSS, labs unremarkable UDS +MDMA (pt on Wellbutrin) KUB unremarkable Discharge Exam GENERAL APPEARANCE NAD, activity normal for age, well developed/ well nourished, no cyanosis, pallor, or diaphoresis. EYES lids/conjunctiva normal. EARS/NOSE/THROAT Mucous membranes moist, nares normal, lips/teeth normal uvula midline without oral pharyngeal erythema, exudate or swelling TMs normal bilaterally. No lymphangitis/lymphedema. HEAD/NECK normocephalic atraumatic, no facial trauma, neck is supple. RESPIRATORY respiratory effort normal, speaks in full sentences, no tripod position, no accessory muscle use. Lungs clear to auscultation without rhonchi, wheezes, rales CARDIAC Regular rate and rhythm, no edema. ABDOMINAL Soft, ND/NT. No evidence of fluid wave. No pulsatile masses on exam, rebound tenderness, Miller sign or pain over Mcburney's point. MUSCLES/EXTREMITIES No abnormal range of motion, no swelling. SKIN Warm, pink and dry. No rashes, dermatoses, petechiae or lesions. NEUROLOGICAL Speech is clear and appropriate. Normal level of consciousness. Gait and coordination are normal. 5/5 strength in all extremities. PSYCH Normal mood and affect. Judgement/competence is appropriate Discharge Plan Discharge Items Patient Disposition: Home - Self-Care Reason For Visit: ABD PAIN Discharge Diagnosis: IBS Condition on Discharge: Good Activity: Resume your previous activity Non-emergency contact: Primary Care Provider Call non-emergency contact if: you have any medication questions Follow-up/Referrals: La Nena Garrett MD [Primary Care Provider] - Diet: Regular Addtl Attending Provider Instructions: Follow up with PMD in 2 weeks Pending Studies at Discharge: No Stand-Alone Forms: My [place] [employer], Smoking Cessation Medications and DC Order Prescriptions: New Xifaxan 550 mg Tablet 550 mg PO BID Qty: 60 0RF metoclopramide HCl 10 mg Tablet 10 mg PO BID Qty: 60 0RF Continued albuterol sulfate [Ventolin HFA] 90 mcg/actuation HFA aerosol inhaler 2 puff inhalation Q4H PRN (Reason: Shortness Of Breath Or Wheezing) Qty: 18 5RF bupropion HCl 150 mg tablet sustained-release 12 hr 150 mg PO BID Qty: 180 3RF fluticasone propionate 50 mcg/actuation spray,suspension 1 spray intranasal DAILY 30 Days Qty: 48 3RF Rx Instructions: 1 SPRAY IN EACH NOSTRIL DAILY atorvastatin 20 mg tablet 20 mg PO HS Qty: 90 3RF budesonide-formoterol [Symbicort] 80-4.5 mcg/actuation HFA aerosol inhaler 2 inh inhalation BID Qty: 30.59 3RF Hold Instructions: Gastritis Rx Instructions: INHALE 2 PUFFS INTO THE LUNGS TWICE A DAY ondansetron 4 mg tablet,disintegrating 4 mg PO Q6H PRN (Reason: nausea and vomiting) Qty: 30 2RF (DME) Vortex Holding Chamber spacer See Dose Instructions .ROUTE .MEDSUPPLY Qty: 1 0RF Dose Instruction: As directed Rx Instructions: As directed ascorbate calcium (vitamin C) 500 mg tablet 1,000 mg PO QAM fluconazole 150 mg tablet 150 mg PO Q48H 6 Days Qty: 3 1RF vitamin E 400 unit Capsule 400 unit PO QAM levothyroxine 88 mcg tablet 88 mcg PO QAM levocetirizine 5 mg tablet 5 mg PO HS gabapentin 100 mg Capsule 100 mg PO BID Qty: 30 0RF Saccharomyces boulardii [Florastor] 250 mg capsule 250 mg PO BID Qty: 20 0RF Rx Instructions: swallow whole cholecalciferol (vitamin D3) [Vitamin D3] 50 mcg (2,000 unit) Tablet 50 mcg PO QAM nystatin-triamcinolone 100,000-0.1 unit/gram-% ointment 1 applic topical BID PRN (Reason: Flare/Irritation) tamsulosin 0.4 mg capsule 0.4 mg PO QAM estradiol 0.01 % (0.1 mg/gram) cream 0.25 appful VAGINAL 3XWK Rx Instructions: Mon/Wed/Fri dicyclomine 10 mg capsule 10 mg PO TID PRN (Reason: Abd pain) coQ10 (ubiquinol) 100 mg Capsule 100 mg PO QAM activated charcoal 260 mg Capsule 260 mg PO QDL IBgard 90 mg Capsule,Delayed,Extend.Release 180 mg PO BID Patient Comments: before meals Cequa 0.09 % dropperette 1 drp OPB BID Rx Instructions: hasnt started yet nystatin-triamcinolone 100,000-0.1 unit/gram-% ointment 1 applic topical BID PRN (Reason: SKIN IRRITATIONS) propranolol 60 mg capsule,extended release 24 hr 60 mg PO HS sucralfate 1 gram Tablet 1 g PO BID 30 Days Qty: 60 0RF pantoprazole 40 mg Tablet,Delayed Release (Dr/Ec) 40 mg PO BID Qty: 60 0RF alprazolam 0.25 mg tablet 0.25 mg PO Q8H PRN (Reason: anxiety) Qty: 10 0RF Discharge Orders: Discharge Order (Routine); Ordered 11/18/24 Ordered By: Jaime Puga Admission Data Admit Date/Time: 11/15/24 13:29 Attending Provider: Jaime Puga Admit Provider: Jaime Puga Primary Care Provider: La Nena Garrett Other Providers: Kodi Moran; Delio Carter; Ke Franklin; Nancy Willis; Clarita Ivy; Carolann Rai; Debra Calle; Nickolas Orellana; Solomon Jenkins; Hattie Suárez; Elisha Capellan; Jimena Wells; Karen Benitez; Jen Jara; Marga Aly; Kiera Marmolejo; Kyle Pink; Jay Villarreal; Netta Gerard; Lina Jain Jr; Cash Durant; Vladimir Augustin; Cornell Coyne; Luis E Mccauley; Emely Kay; Javi Freire I; Yahaira Bustamante; Jensen Lundy; Ubaldo Floyd; Adrian Connor; Chema Dior Hospital Stay Data Consultations 11/14/24 01:58 ED Decision to Admit Stat 11/14/24 04:49 Consult Gastroenterology Routine Diagnostic Imagining Performed 11/16/24 16:44 CT Abd and Pelvis [CT abd pelvis wo con] Stat Pending Results Patient Have Any Pending Studies at Discharge: No Discharge Instructions Given to Patient (Per Discharging Provider) Follow up with PMD in 2 weeks Total Time Total Time Spent Total Time Spent (In Minutes): 50 Coding Level of Care Code 38757 INP/OBS DISCH >30 MIN Diagnoses Generalized abdominal pain R10.84 Depression F32.A Hypertension I10 Esophageal reflux K21.9 Hypothyroidism E03.9 Hyperlipidemia E78.5
== END 2024-11-18 14:41 | disposition home or self-care (01) | DRG 392 ==
LOC: SUATTDRO → ED 21:48 → 3W 21:48 → SUATTDRO 11-14 03:10 → 3W 11-14 03:50

== ENCOUNTER 2025-01-24 12:38 | Observation (INO) ==
--- NOTE | 2025-01-24 13:15 | Emergency Department Note ---
ED Provider Note History of Present Illness Chief Complaint: Urinary Symptoms Stated Complaint: VAGINAL ITCHING, BURNING, FREQUENT URINATION, Time Seen by Provider: 01/24/25 12:54 Source: patient and family Mode of arrival: ambulatory Limitations: no limitations Patient is a 64-year-old female who presents to the emergency department with complaints of frequent urination, burning and itching. Patient states that she was up all night last night voiding and has some abdominal discomfort, chills and feeling unwell. Patient has some intermittent nausea but denies any vomiting. Patient reports that she has also had persistent diarrhea all day and notes some upper abdominal pain. Home Medications Medication Instructions Recorded Confirmed Type vitamin E 268 mg (400 unit) capsule 400 unit PO QAM 09/06/18 01/24/25 History inhalational spacing device #1 ea 09/22/18 01/05/25 Rx (Vortex Holding Chamber) ascorbate calcium (vitamin C) 500 1,000 mg PO QAM 08/06/20 01/24/25 History mg tablet albuterol sulfate 90 mcg/actuation 2 puff inhalation Q4H PRN 05/19/22 01/24/25 Rx aerosol inhaler (Ventolin HFA) Shortness Of Breath Or Wheezing #18 grams bupropion HCl 150 mg tablet,12 hr 150 mg PO BID #180 ea 07/11/22 01/24/25 Rx sustained-release fluticasone propionate 50 1 spray intranasal DAILY 30 days 07/22/22 01/24/25 Rx mcg/actuation nasal #48 grams spray,suspension atorvastatin 20 mg tablet 20 mg PO HS #90 tabs 11/13/22 01/24/25 Rx levocetirizine 5 mg tablet 5 mg PO HS 02/13/23 01/24/25 History levothyroxine 88 mcg tablet 88 mcg PO QAM 02/13/23 01/24/25 History budesonide-formoterol HFA 80 2 inh inhalation BID #30.59 grams 05/07/23 01/24/25 Rx mcg-4.5 mcg/actuation aerosol inhaler (Symbicort) activated charcoal 260 mg capsule 260 mg PO .3 TIMES WEEKLY 06/18/23 01/24/25 History coQ10 (ubiquinol) 100 mg capsule 100 mg PO QAM 06/18/23 01/24/25 History Saccharomyces boulardii 250 mg 250 mg PO BID #20 caps 06/26/23 01/24/25 Rx capsule (Florastor) cyclosporine 0.09 % eye drops in a 1 drp OPB BID 08/22/23 01/24/25 History dropperette (Cequa) cholecalciferol (vitamin D3) 50 50 mcg PO QAM 03/23/24 01/24/25 History mcg (2,000 unit) tablet (Vitamin D3) dicyclomine 10 mg capsule 10 mg PO TID PRN Abd pain 03/23/24 01/24/25 History ondansetron 4 mg disintegrating 4 mg PO Q6H PRN nausea and 08/12/24 01/24/25 Rx tablet vomiting #30 tabs propranolol 60 mg capsule,24 60 mg PO HS 10/15/24 01/24/25 History hr,extended release alprazolam 0.25 mg tablet 0.25 mg PO Q8H PRN anxiety #10 tabs 10/20/24 01/24/25 Rx pantoprazole 40 mg tablet,delayed 40 mg PO BID #60 tabs 10/20/24 01/24/25 Rx release promethazine 25 mg tablet 25 mg PO TID PRN abdominal pain 11/27/24 01/24/25 Rx #10 tabs gabapentin 100 mg capsule 200 mg PO BID 12/26/24 01/24/25 History estradiol 0.01% (0.1 mg/gram) 1 g vaginal 3XWK #42.5 grams 01/05/25 01/24/25 Rx vaginal cream cimetidine 200 mg tablet 200 mg PO BID #60 tabs 01/11/25 01/24/25 Rx nystatin 100,000 unit/gram topical 1 applic topical UD PRN Other 01/24/25 01/24/25 History ointment Allergies Allergy/AdvReac Type Severity Reaction Status Date / Time bacitracin Allergy Intermediate Hives Verified 01/05/25 14:17 [From Neosporin ([id number])] famotidine Allergy Intermediate Hives Verified 01/05/25 14:17 neomycin Allergy Intermediate Hives Verified 01/05/25 14:17 [From Neosporin ([id number])] polymyxin B Allergy Intermediate Hives Verified 01/05/25 14:17 [From Neosporin ([id number])] amoxicillin [From Augmentin] AdvReac Intermediate Caused C. Verified 01/05/25 14:17 diff clavulanic acid AdvReac Intermediate Caused C. Verified 01/05/25 14:17 [From Augmentin] diff lactose AdvReac Intermediate Gastrointestinal Verified 01/05/25 14:17 Upset olmesartan AdvReac Intermediate Diarrhea Verified 01/05/25 14:17 vilanterol AdvReac Intermediate Swelling Verified 01/05/25 14:17 [From Breo Ellipta] of legs/feet and GI Upset levofloxacin AdvReac Unknown tendinopathy Verified 01/05/25 14:17 - undetermined if med was cause. Past Med/Surg History Problem List (Updated 01/24/25 @ 18:08 by Jez Christianson MD) Anxiety and depression Primary hypothyroidism Essential hypertension Chronic abdominal pain Diarrhea (Acute) Nausea (Acute) Increased frequency of urination (Acute) Abdominal pain (Acute) Leiomyoma Constipation Generalized abdominal pain (Acute) Enterocolitis Anemia Abnormal computerized axial tomography of liver (Acute) Vulvar burning Chronic nausea Drug allergy Atrophic vaginitis Right kidney mass Recurrent UTI Depression Abnormal findings on imaging of biliary tract Abdominal pain (Acute) Bilateral kidney stones Epigastric pain Hip tendinitis Calcium kidney stone Hamstring tendinitis Arthritis of hip Hx of diverticulitis of colon Greater trochanteric pain syndrome Palpitations Chronic venous insufficiency Pain of right sacroiliac joint Helicobacter pylori infection C. difficile colitis Allergic rhinitis (Chronic) Idiopathic urticaria (Acute) Chronic sinusitis (Chronic) Impaired fasting glucose (Chronic) Medical History Urinary tract infection abx completed 06/28 or 06/30/23 - feeling better, all symptoms gone except some pressure. Pre op edu rev. Diverticulosis hx Gastritis History of gastric polyp History of colon polyps Vertigo none for over a month Kidney stones current Renal mass [place] [facility] aware, monitoring Paresthesia of upper extremity sometimes arms Diarrhea current : on occ /finished abx recently. History of Helicobacter pylori infection Hx of Clostridium difficile infection Remote hx approximately 30 years ago History of COVID-19 03/19/2023 ([place], [place]) > resolved 11/2021- fatigue, congestion, cough, sore throat > resolved pt reports has had a total of 3 times : 1st time in 2019 ? Hx of melanoma of skin Pulmonary embolism Remote hx approximately 30 years ago, after SUMAN (blood thinners x 3 months) Acute diverticulitis listed in differential diagnosis 04/14/23 by hospitalist, not included on discharge summary Sciatica hx COPD (chronic obstructive pulmonary disease) well controlled per pt, rare res inh use Mild reactive airways disease Depression with anxiety Esophageal reflux Fibromyalgia Hypertension Irritable bowel syndrome Hypothyroidism Hyperlipidemia History of asthma Surgical History History of lithotripsy History of cystoscopy Hx of vascular surgery Dr Morales [facility] 07/2022 Distal LT GSV accessed under ultrasound guidance with placement of 4Fr sheath History of esophagogastroduodenoscopy (EGD) Hx of cataract extraction Hx of melanoma excision stomach S/P dilation and curettage History of cryosurgery History of colonoscopy (10/12/19) 4 polyps removed, [facility], Dr. Roque S/P tonsillectomy S/P sinus surgery S/P SUMAN-BSO S/P laparoscopic cholecystectomy S/P appendectomy Family History Mother Diabetes Father Heart disease Other Asthma Cancer Gallbladder disease Hypertension Stroke Denies family history of Ovarian cancer Myocardial infarction Breast cancer Colorectal cancer Colonic polyp Uterine cancer Social History Smoking Status: Former smoker Tobacco Type: Cigarettes Age Started Using Tobacco: 18; Age Quit Using Tobacco: 58; Second Hand Exposure: No; Do You Dip or Chew Tobacco: No; Hx Alcohol Use: No Hx Substance Use: No Preferred Language: Portuguese Communication Ability: Effective Visual Impairment: No Limitations Hearing Ability: Normal Division Order Analyst Required: No Beliefs That Will Affect Care: None marital status: Current Living Situation: Spouse Current Living Situation Comment: [facility] current occupational status: disabled Feels Safe at Home: Yes Childhood Exposure to Second-Hand Smoke: Yes Dental Care, Regularly: Yes Seatbelt Use: always Sunscreen Use: Yes Do you think of yourself as: straight/heterosexual Sexual Activity: has been sexually active within the last 12 months Assistive Devices: Walker Physical Exam Vital Signs Vital Signs - 24 hr 01/24/25 17:30 01/24/25 17:31 01/24/25 17:31 Pulse Rate 73 Pulse Rate [Apical] Pulse Rate from SpO2 Sensor Respiratory Rate 22 Respiratory Effort / Characteristics Respiratory Depth Blood Pressure 106/73 106/73 Blood Pressure [Left Arm] Blood Pressure Mean 90 90 Blood Pressure Mean [Left Arm] Pulse Oximetry Oxygen Delivery Method 01/24/25 17:31 01/24/25 17:35 01/24/25 17:48 Pulse Rate 69 Pulse Rate [Apical] 79 Pulse Rate from SpO2 Sensor 69 Respiratory Rate 18 9 L Respiratory Effort / Characteristics Non-Labored Spontaneous Respiratory Depth Normal Blood Pressure 106/73 Blood Pressure [Left Arm] 106/73 Blood Pressure Mean 90 Blood Pressure Mean [Left Arm] 84 Pulse Oximetry 98 92 Oxygen Delivery Method Room Air VITAL SIGNS - Vital signs and nursing notes were reviewed. GENERAL -64-year-old female appearing her stated age who is in no acute distress. Communicates well with provider and answers questions appropriately. HEAD - NC/AT. EYES - PERRL with EOMI bilaterally. Conjunctiva pink and moist with no injection noted. LUNGS - Chest wall symmetric without accessory muscle use, intercostals retractions, or central cyanosis. Breath sounds clear throughout all wright. No wheezes, rales, or rhonchi appreciated. CARDIAC - RRR with S1/S2. No murmur, rubs, or gallops appreciated. ABDOMEN - Abdominal contour without pulsations or visible masses. Negative Longwood's or Lewis Sommer's Signs. BS normoactive all four quadrants. Mildly increased tenderness to palpation appreciated in the lower abdomen. No guarding. No rebound Tenderness. No palpable masses, hepatosplenomegaly, or ascites noted. PSYCH - A&Ox3 and cooperates fully with examiner. Pt is very pleasant and interacts well with examiner. Course Administered Medications Artificial Tears (Artificial Tears) 1 drops OP BID BREANNA Stop: 02/24/25 08:59 Last Admin: 01/25/25 08:45 Dose: 1 drops Documented By: BANDAR Fentanyl (Fentanyl 25 Mcg/Hr Tdsy) 1 patch TD Q3D BREANNA Stop: 02/08/25 16:59 Last Admin: 01/25/25 16:53 Dose: 1 patch Documented By: BANDAR Acetaminophen (Ofirmev) 1,000 mg in 100 mls @ 400 mls/hr IV Q8H PRN PRN Reason: Fever Stop: 01/27/25 21:23 Last Infusion: 01/25/25 16:43 Dose: Infused Documented By: Admin: 01/25/25 16:23 Dose: 400 mls/hr Documented By: Infusion: 01/25/25 08:11 Dose: Infused Documented By: [facility] Admin: 01/25/25 07:54 Dose: 400 mls/hr Documented By: BENSON Sodium Chloride (Nss) 1,000 mls @ 60 mls/hr IV .[id number] BREANNA Stop: 01/27/25 21:23 Last Infusion: 01/25/25 13:58 Dose: 60 mls/hr Documented By: Admin: 01/25/25 11:19 Dose: 80 mls/hr Documented By: Infusion: 01/25/25 10:42 Dose: Infused Documented By: [facility] Admin: 01/24/25 22:12 Dose: 80 mls/hr Documented By: ORTEGA Levothyroxine Sodium (Levothyroxine Sodium 88 Mcg Tablet) 88 mcg PO DAILYBB [facility] Stop: 02/24/25 06:29 Last Admin: 01/25/25 06:04 Dose: 88 mcg Documented By: ORTEGA Miscellaneous (Fentanyl Patch Remove & Waste) 1 each N/A Q3D [facility] Stop: 02/24/25 16:59 Last Admin: 01/25/25 16:53 Dose: Not Given Documented By: BENSON Morphine Sulfate (Morphine Sulfate 2 Mg/Ml Carp) 1 mg IV Q3H PRN PRN Reason: Pain Stop: 02/07/25 21:23 Last Admin: 01/25/25 15:13 Dose: 1 mg Documented By: Admin: 01/25/25 11:02 Dose: 1 mg Documented By: Admin: 01/25/25 06:08 Dose: 1 mg Documented By: Admin: 01/24/25 21:50 Dose: 1 mg Documented By: ORTEGA Ondansetron HCl (Ondansetron Inj 2 Mg/Ml 2 Ml Vial) 4 mg IV Q6H PRN PRN Reason: Nausea And Vomiting Stop: 02/23/25 21:23 Last Admin: 01/25/25 10:50 Dose: 4 mg Documented By: Admin: 01/24/25 22:18 Dose: 4 mg Documented By: ORTEGA Pantoprazole Sodium (Pantoprazole 40 Mg Tab) 40 mg PO BID BREANNA Stop: 02/23/25 21:23 Last Admin: 01/25/25 09:49 Dose: 40 mg Documented By: Admin: 01/24/25 21:51 Dose: 40 mg Documented By: ORTEGA Polyethylene Glycol (Polyethylene (Miralax) 17 Gm Pack) 17 gm PO BID BREANNA Stop: 02/24/25 12:59 Last Admin: 01/25/25 13:17 Dose: 17 gm Documented By: BANDAR Propranolol HCl (Propranolol Hcl 60 Mg La Cap) 60 mg PO HS BREANNA Stop: 02/23/25 21:23 Last Admin: 01/24/25 21:51 Dose: 60 mg Documented By: ORTEGA Sucralfate (Sucralfate 1 Gm Tab) 1 gm PO QID BREANNA Stop: 02/23/25 21:23 Last Admin: 01/25/25 16:25 Dose: 1 gm Documented By: Admin: 01/25/25 13:17 Dose: 1 gm Documented By: Admin: 01/25/25 09:49 Dose: 1 gm Documented By: Admin: 01/24/25 21:51 Dose: 1 gm Documented By: ORTEGA Vitamin D (Cholecalciferol 25 Mcg (1000 Units) Tab) 50 mcg PO QAM BREANNA Stop: 02/24/25 08:59 Last Admin: 01/25/25 09:49 Dose: 50 mcg Documented By: BANDAR Discontinued Medications Dicyclomine HCl (Dicyclomine Hcl 10 Mg Cap) 10 mg PO NOW ONE Stop: 01/24/25 15:35 Last Admin: 01/24/25 15:51 Dose: 10 mg Documented By: JANET Sodium Chloride (Nss) 1,000 mls @ 999 mls/hr IV .Q1H1M ONE Stop: 01/24/25 14:43 Last Infusion: 01/24/25 16:20 Dose: Infused Documented By: Admin: 01/24/25 14:16 Dose: 999 mls/hr Documented By: JANET Acetaminophen (Ofirmev) 1,000 mg in 100 mls @ 400 mls/hr IV NOW STA Stop: 01/24/25 15:48 Last Infusion: 01/24/25 16:20 Dose: Infused Documented By: Admin: 01/24/25 15:51 Dose: 400 mls/hr Documented By: JANET Promethazine HCl (Phenergan) 12.5 mg in 50.5 mls @ 202 mls/hr IV NOW STA Stop: 01/24/25 16:54 Last Infusion: 01/24/25 18:00 Dose: Infused Documented By: Admin: 01/24/25 17:35 Dose: 202 mls/hr Documented By: JANET Ioversol (Optiray 320 100ml) 93 ml IV ONCE ONE Stop: 01/24/25 14:45 Last Admin: 01/24/25 14:44 Dose: 93 ml Documented By: LOAN Ketorolac Tromethamine (Ketorolac Tromethamine 15 Mg/Ml Vial) 15 mg IV NOW STA Stop: 01/24/25 14:54 Last Admin: 01/24/25 15:00 Dose: 15 mg Documented By: JANET Morphine Sulfate (Morphine Sulfate 4 Mg/Ml 1 Ml Carp\Vial) 4 mg IV NOW STA Stop: 01/24/25 16:41 Last Admin: 01/24/25 17:34 Dose: 4 mg Documented By: JANET Morphine Sulfate (Morphine Sulfate 4 Mg/Ml 1 Ml Carp\Vial) Confirm Administered Dose 4 mg .ROUTE .STK-MED ONE Stop: 01/25/25 10:56 Last Admin: 01/25/25 11:00 Dose: Not Given Documented By: BANDAR Ondansetron HCl (Ondansetron Inj 2 Mg/Ml 2 Ml Vial) 4 mg IV NOW STA Stop: 01/24/25 14:54 Last Admin: 01/24/25 14:59 Dose: 4 mg Documented By: JANET Medical Decision Making Differential Diagnosis Differential diagnoses includes UTI, pyelonephritis, IBS, small bowel obstruction, yeast infection, constipation, abdominal abcess, among others. Medical Records Attestation: I reviewed the patient's medical records. Home Medications was personally reviewed by ne Laboratory Data Attestation: I reviewed the patient's lab results. 01/25/25 08:14 01/25/25 08:14 Lab Results 01/24/25 Range/Units 13:20 WBC 7.26 (4.8-10.8) K/ul RBC 4.71 (4.20-5.40) M/uL Hgb 12.3 (12.0-16.0) g/dl Hct 40.0 (37.0-47.0) % MCV 84.9 (80.0-100.0) fL MCH 26.1 (25.0-34.0) pg MCHC 30.8 L (32.0-36.0) g/dL RDW Std Deviation 43.8 (36.4-46.3) fL RDW Coeff of Sánchez 14.1 (11.5-14.5) % Plt Count 299 (130-400) K/uL MPV 9.6 (9.4-12.4) fL Immature Gran % (Auto) 0.3 % Neut % (Auto) 63.2 % Lymph % (Auto) 27.4 % Nash % (Auto) 7.9 % Eos % (Auto) 0.6 % Baso % (Auto) 0.6 % Neut # (Auto) 4.60 (1.40-6.50) K/uL Lymph # (Auto) 1.99 (1.20-3.40) K/uL Nash # (Auto) 0.57 (0.11-0.59) K/uL Eos # (Auto) 0.04 (0.00-0.50) K/uL Baso # (Auto) 0.04 (0.00-0.20) K/uL Immature Gran # (Auto) 0.02 (0.01-0.20) K/uL Sodium 138 (136-145) mmol/L Potassium 3.8 (3.5-5.1) mmol/L Chloride 100 (98-107) mmol/L Carbon Dioxide 29 (21-32) mmol/L Anion Gap 9 (3-11) BUN 7 (6-23) mg/dl Creatinine 0.63 (0.6-1.2) mg/dl Est Cr Clr Drug Dosing 79.0 ml/min eGFR 97.78 BUN/Creatinine Ratio 11.1 (10-20) Glucose 116 H (70-99(Fasting)) mg/dl Lactate 3.1 H* (0.4-2.0) mmol/L Calcium 9.7 (8.6-10.3) mg/dl Total Bilirubin 0.5 (0.2-1.0) mg/dl AST 18 (13-39) U/L ALT 15 (7-52) U/L Alkaline Phosphatase 52 (34-104) U/L Total Protein 7.9 (6.0-8.3) gm/dl Albumin 4.4 (3.4-5.0) gm/dl Globulin 3.5 (2.5-4.0) gm/dl Albumin/Globulin Ratio 1.3 (0.9-2) Lipase 12 (11-82) U/L Free T4 1.29 (0.61-1.60) ng/dl Free T3 3.06 (2.3-4.2) pg/ml Imaging Data Radiologist's Impression: Abdomen/Pelvis CT 01/24/25 13:03 CT SCAN OF THE ABDOMEN AND PELVIS WITH IV CONTRAST CLINICAL HISTORY: Abdominal pain. UTI symptoms. COMPARISON STUDY: CT of the abdomen and pelvis January 05, 2025. TECHNIQUE: Following the IV administration of 93 cc of Optiray 320, CT scan of the abdomen and pelvis is performed from the lung bases to the proximal femora. Images are reviewed in the axial, sagittal, and coronal planes. IV contrast was administered without complication. A dose lowering technique was utilized adhering to the principles of ALARA. CT DOSE: 638.55 mGy.cm FINDINGS: Visualized lung bases are unremarkable. There is no pneumatosis, free air or portal venous gas. Mild biliary ductal dilatation remains unchanged. This is likely related to cholecystectomy. There are no hepatic lesions. There is no pancreatic ductal dilatation. Spleen, adrenal glands, kidneys and pancreas are unremarkable. There are no urinary calculi. There is no hydronephrosis. There is mild bladder wall thickening. No evidence for pyelonephritis. There is no evidence for a bowel obstruction. The caliber and wall thickness of small and large bowel are normal. There is sigmoid diverticulosis without evidence for acute diverticulitis. There is no lymphadenopathy. There are no fluid collections. IMPRESSION: 1. Mild bladder wall thickening which could be correlated with urinalysis. No CT evidence for pyelonephritis. No urinary calculi or hydronephrosis. 2. No bowel obstruction. No bowel wall thickening. ACT 112: Negative or not required by law. Electronically signed by: Americo Joya M.D. 01/24/2025 3:11 PM MDM Narrative Patient is a 64-year-old female who presents to the emergency department with complaints of frequent urination, burning and itching. Patient states that she was up all night last night voiding and has some abdominal discomfort, chills and feeling unwell. Patient has some intermittent nausea but denies any vomiting. Patient reports that she has also had persistent diarrhea all day and notes some upper abdominal pain. Patient was evaluated by myself and findings were noted in the physical exam above. Patient was ordered IV placement, lab work, urinalysis, and a CT of the abdomen and pelvis. Patient was also ordered an IV dose of Toradol and Zofran. Patient's lab work resulted with a normal white blood cell count of 7.26. Patient had no indication of anemia with a hemoglobin of 12.3 and hematocrit of 40.0. Patient had no significant electrolyte imbalance noted. Patient did have an elevated lactate of 3.1. Patient's urinalysis was not indicative of any infection. Patient was also ordered a liter of fluid at this time. Patient was also ordered a repeat lactic. Patient was ordered a dose of Toradol and Zofran for symptoms. Patient's CT of the abdomen pelvis was completed and interpreted by radiology to show some mild bladder wall thickening with no evidence of pyelonephritis, urinary calculi or hydronephrosis. No evidence of bowel obstruction or bowel wall thickening. I discussed all these findings with the patient who verbalized understanding. I discussed with the patient that we could discharge her today and have her follow-up with GI in the outpatient setting, however the patient felt that she would be able to manage her pain at home and was concerned with going home. I discussed with the patient that we could try collecting a stool sample and doing an IV dose of Tylenol and some p.o. Bentyl to see if that helps with her pain. Patient verbalized understanding and was agreeable to the plan. Patient was ordered IV Tylenol and p.o. Bentyl at this time. Upon subsequent reevaluation patient states that she still having significant pain and she is tearful in the bed stating that she does not believe that she can go home because her pain is too significant. I ordered the patient a dose of IV morphine and Phenergan at this time and [facility] I spoke with Dr. Christianson and gave him a full report on the patient's chief complaint, current status and the results of her imaging and lab work. Dr. Christianson verbalized understanding and noted that he would see the patient. [facility] for further evaluation and management of this patient. Impression Abdominal pain, Increased frequency of urination, Nausea, Diarrhea Discharge Plan Visit Data Chief Complaint: Urinary Symptoms Stated Complaint: VAGINAL ITCHING, BURNING, FREQUENT URINATION, ED Provider: Randy Ortez ED Midlevel Provider: Candy Jasso Discharge Problem: Abdominal pain, Increased frequency of urination, Nausea, Diarrhea Patient Disposition: Admitted As Inpatient Condition: Good Discharge Instructions Interventions: ED Discharge Assessment Last Done: 01/24/25 21:03 Discharge Problem: Abdominal pain Qualifiers: Abdominal location: generalized Qualified Code(s): R10.84 - Generalized abdominal pain Diarrhea Qualifiers: Diarrhea type: unspecified type Qualified Code(s): R19.7 - Diarrhea, unspecified
[2025-01-24 13:41] LABS: Appearance Urine Clear (Clear); Glucose Urine UA Negative (Negative)
[2025-01-24 13:43] LABS: Hematocrit (blood only) 40.0 % (37.0-47.0); Hemoglobin 12.3 g/dl (12.0-16.0); Immature Granulocytes # (auto) 0.02 K/uL (0.01-0.20); Immature Granulocytes % (auto) 0.3 %; Mean Corpuscular Hemoglobin 26.1 pg (25.0-34.0); Mean Corpuscular Volume 84.9 fL (80.0-100.0); Platelet Count 299 K/uL (130-400); RDW Standard Deviation 43.8 fL (36.4-46.3); Red Blood Count 4.71 M/uL (4.20-5.40); White Blood Count 7.26 K/ul (4.8-10.8)
[2025-01-24 14:09] LABS: Alanine Aminotransferase 15.0 U/L (7-52); Albumin Globulin Ratio 1.3 (0.9-2); Albumin Level 4.4 gm/dl (3.4-5.0); Alkaline Phosphatase 52.0 U/L (34-104); Anion Gap 9.0 (3-11); Bilirubin,Total 0.5 mg/dl (0.2-1.0); Blood Urea Nitrogen 7.0 mg/dl (6-23); Calcium 9.7 mg/dl (8.6-10.3); Carbon Dioxide 29.0 mmol/L (21-32); Chloride 100.0 mmol/L (98-107); Creatinine Clr Calc Pharmacy 79.0 ml/min; Globulin 3.5 gm/dl (2.5-4.0); Glucose 116.0 mg/dl (70-99(Fasting)); Lipase 12.0 U/L (11-82); Potassium 3.8 mmol/L (3.5-5.1); Sodium 138.0 mmol/L (136-145); Total Protein 7.9 gm/dl (6.0-8.3)
[2025-01-24] MEDS: SODIUM CHLORIDE 0.9% 1,000 ML IV ONE (14:16)
[2025-01-24] MEDS: OPTIRAY 320 100ml IV ONE (14:44)
[2025-01-24] MEDS: ONDANSETRON INJ 2 MG/ML 2 ML VIAL IV STA (14:59)
[2025-01-24] MEDS: KETOROLAC TROMETHAMINE 15 MG/ML VIAL IV STA (15:00)
--- NOTE | 2025-01-24 15:13 | CT Scan Report ---
CT SCAN OF THE ABDOMEN AND PELVIS WITH IV CONTRAST CLINICAL HISTORY: Abdominal pain. UTI symptoms. COMPARISON STUDY: CT of the abdomen and pelvis January 05, 2025. TECHNIQUE: Following the IV administration of 93 cc of Optiray 320, CT scan of the abdomen and pelvi s is performed from the lung bases to the proximal femora. Images are reviewed in the axial, sagittal , and coronal planes. IV contrast was administered without complication. A dose lowering technique wa s utilized adhering to the principles of ALARA. CT DOSE: 638.55 mGy.cm FINDINGS: Visualized lung bases are unremarkable. There is no pneumatosis, free air or portal venous gas. Mild biliary ductal dilatation remains unchanged. This is likely related to cholecystectomy. The re are no hepatic lesions. There is no pancreatic ductal dilatation. Spleen, adrenal glands, kidneys and pancreas are unremarkable. There are no urinary calculi. There is no hydronephrosis. There is mil d bladder wall thickening. No evidence for pyelonephritis. There is no evidence for a bowel obstructi on. The caliber and wall thickness of small and large bowel are normal. There is sigmoid diverticulos is without evidence for acute diverticulitis. There is no lymphadenopathy. There are no fluid collect ions. IMPRESSION: 1. Mild bladder wall thickening which could be correlated with urinalysis. No CT evidence for pyelone phritis. No urinary calculi or hydronephrosis. 2. No bowel obstruction. No bowel wall thickening. ACT 112: Negative or not required by law. Electronically signed by: Americo Joya M.D. 01/24/2025 3:11 PM
--- NOTE | 2025-01-24 15:43 | Emergency Department Note ---
ED Visit Note I was consulted by the Advanced Practice Provider, Candy BUTCHRE. I personally made/approved the management plan and take responsibility for the p atient management. I performed a substantive portion of the visit. This includes the aspects of: -History/Physical/Personally seeing the patient -MDM .
[2025-01-24] MEDS: ACETAMINOPHEN 1,000 MG/100 ML VIAL IV STA (15:51)
[2025-01-24] MEDS: DICYCLOMINE HCL 10 MG CAP PO ONE (15:51)
[2025-01-24] MEDS: MoRPHine SULFATE 4 MG/ML 1 ML CARP\\VIAL IV STA (17:34)
[2025-01-24] MEDS: PROMETHAZINE 12.5 MG/50.5 ML BAG IV STA (17:35)
--- NOTE | 2025-01-24 18:10 | History & Physical Report ---
Date of Service January 24, 2025 Assessment & Plan (1) Chronic abdominal pain: Plan: She does have symptoms of gastric irritation and will continue Protonix and add Carafate. Pain control measures. She probably would benefit from a drug holiday and multiple medications have been discontinued. IV fluids for now (2) Essential hypertension: Plan: Continue propranolol at bedtime. Currently controlled (3) Primary hypothyroidism: Plan: Continue levothyroxine supplementation. Check free T3 and free T4 levels (4) Anxiety and depression: Plan: Xanax as needed. Bupropion and gabapentin have been discontinued Plan Hopefully home within the next day or 2 pending clinical course History of Present Illness Chief Complaint: Exacerbation of chronic abdominal pain Primary Care Provider: La Nena Garrett MD 64-year-old white female with chronic abdominal pain who came to the ED for evaluation. She states her pain has been ongoing for years and has recently worsened. She occasionally vomits but denies any hematemesis, melena, hematochezia. She sees multiple subspecialists and her prescription count is around 12 not counting the supplements that she takes. I think she would do well with a medication holiday except for essentials like levothyroxine, propranolol, pantoprazole. Carafate will be added. All other medications will be placed on hold. Pain control measures with as needed IV morphine as needed. Observation for now. Allergies Allergy/AdvReac Type Severity Reaction Status Date / Time bacitracin Allergy Intermediate Hives Verified 01/05/25 14:17 [From Neosporin ([id number])] famotidine Allergy Intermediate Hives Verified 01/05/25 14:17 neomycin Allergy Intermediate Hives Verified 01/05/25 14:17 [From Neosporin ([id number])] polymyxin B Allergy Intermediate Hives Verified 01/05/25 14:17 [From Neosporin ([id number])] amoxicillin [From Augmentin] AdvReac Intermediate Caused C. Verified 01/05/25 14:17 diff clavulanic acid AdvReac Intermediate Caused C. Verified 01/05/25 14:17 [From Augmentin] diff lactose AdvReac Intermediate Gastrointestinal Verified 01/05/25 14:17 Upset olmesartan AdvReac Intermediate Diarrhea Verified 01/05/25 14:17 vilanterol AdvReac Intermediate Swelling Verified 01/05/25 14:17 [From Devendra Kaur] of legs/feet and GI Upset levofloxacin AdvReac Unknown tendinopathy Verified 01/05/25 14:17 - undetermined if med was cause. Home Medications Medication Instructions Recorded Confirmed Type vitamin E 268 mg (400 unit) capsule 400 unit PO QAM 09/06/18 01/24/25 History inhalational spacing device #1 ea 09/22/18 01/05/25 Rx (Vortex Holding Chamber) ascorbate calcium (vitamin C) 500 1,000 mg PO QAM 08/06/20 01/24/25 History mg tablet albuterol sulfate 90 mcg/actuation 2 puff inhalation Q4H PRN 05/19/22 01/24/25 Rx aerosol inhaler (Ventolin HFA) Shortness Of Breath Or Wheezing #18 grams bupropion HCl 150 mg tablet,12 hr 150 mg PO BID #180 ea 07/11/22 01/24/25 Rx sustained-release fluticasone propionate 50 1 spray intranasal DAILY 30 days 07/22/22 01/24/25 Rx mcg/actuation nasal #48 grams spray,suspension atorvastatin 20 mg tablet 20 mg PO HS #90 tabs 11/13/22 01/24/25 Rx levocetirizine 5 mg tablet 5 mg PO HS 02/13/23 01/24/25 History levothyroxine 88 mcg tablet 88 mcg PO QAM 02/13/23 01/24/25 History budesonide-formoterol HFA 80 2 inh inhalation BID #30.59 grams 05/07/23 01/24/25 Rx mcg-4.5 mcg/actuation aerosol inhaler (Symbicort) activated charcoal 260 mg capsule 260 mg PO .3 TIMES WEEKLY 06/18/23 01/24/25 History coQ10 (ubiquinol) 100 mg capsule 100 mg PO QAM 06/18/23 01/24/25 History Saccharomyces boulardii 250 mg 250 mg PO BID #20 caps 06/26/23 01/24/25 Rx capsule (Florastor) cyclosporine 0.09 % eye drops in a 1 drp OPB BID 08/22/23 01/24/25 History dropperette (Cequa) cholecalciferol (vitamin D3) 50 50 mcg PO QAM 03/23/24 01/24/25 History mcg (2,000 unit) tablet (Vitamin D3) dicyclomine 10 mg capsule 10 mg PO TID PRN Abd pain 03/23/24 01/24/25 History ondansetron 4 mg disintegrating 4 mg PO Q6H PRN nausea and 08/12/24 01/24/25 Rx tablet vomiting #30 tabs propranolol 60 mg capsule,24 60 mg PO HS 10/15/24 01/24/25 History hr,extended release alprazolam 0.25 mg tablet 0.25 mg PO Q8H PRN anxiety #10 tabs 10/20/24 01/24/25 Rx pantoprazole 40 mg tablet,delayed 40 mg PO BID #60 tabs 10/20/24 01/24/25 Rx release promethazine 25 mg tablet 25 mg PO TID PRN abdominal pain 11/27/24 01/24/25 Rx #10 tabs gabapentin 100 mg capsule 200 mg PO BID 12/26/24 01/24/25 History estradiol 0.01% (0.1 mg/gram) 1 g vaginal 3XWK #42.5 grams 01/05/25 01/24/25 Rx vaginal cream cimetidine 200 mg tablet 200 mg PO BID #60 tabs 01/11/25 01/24/25 Rx nystatin 100,000 unit/gram topical 1 applic topical UD PRN Other 01/24/25 01/24/25 History ointment Past Med/Surg History Problem List (Updated 01/24/25 @ 18:08 by Jez Christianson MD) Anxiety and depression Primary hypothyroidism Essential hypertension Chronic abdominal pain Diarrhea (Acute) Nausea (Acute) Increased frequency of urination (Acute) Abdominal pain (Acute) Leiomyoma Constipation Generalized abdominal pain (Acute) Enterocolitis Anemia Abnormal computerized axial tomography of liver (Acute) Vulvar burning Chronic nausea Drug allergy Atrophic vaginitis Right kidney mass Recurrent UTI Depression Abnormal findings on imaging of biliary tract Abdominal pain (Acute) Bilateral kidney stones Epigastric pain Hip tendinitis Calcium kidney stone Hamstring tendinitis Arthritis of hip Hx of diverticulitis of colon Greater trochanteric pain syndrome Palpitations Chronic venous insufficiency Pain of right sacroiliac joint Helicobacter pylori infection C. difficile colitis Allergic rhinitis (Chronic) Idiopathic urticaria (Acute) Chronic sinusitis (Chronic) Impaired fasting glucose (Chronic) Medical History Urinary tract infection abx completed 06/28 or 06/30/23 - feeling better, all symptoms gone except some pressure. Pre op edu rev. Diverticulosis hx Gastritis History of gastric polyp History of colon polyps Vertigo none for over a month Kidney stones current Renal mass [place] [facility] aware, monitoring Paresthesia of upper extremity sometimes arms Diarrhea current : on occ /finished abx recently. History of Helicobacter pylori infection Hx of Clostridium difficile infection Remote hx approximately 30 years ago History of COVID-19 03/19/2023 ([facility], [place]) > resolved 11/2021- fatigue, congestion, cough, sore throat > resolved pt reports has had a total of 3 times : 1st time in 2019 ? Hx of melanoma of skin Pulmonary embolism Remote hx approximately 30 years ago, after SUMAN (blood thinners x 3 months) Acute diverticulitis listed in differential diagnosis 04/14/23 by hospitalist, not included on discharge summary Sciatica hx COPD (chronic obstructive pulmonary disease) well controlled per pt, rare res inh use Mild reactive airways disease Depression with anxiety Esophageal reflux Fibromyalgia Hypertension Irritable bowel syndrome Hypothyroidism Hyperlipidemia History of asthma Surgical History History of lithotripsy History of cystoscopy Hx of vascular surgery Dr Morales [facility] 07/2022 Distal LT GSV accessed under ultrasound guidance with placement of 4Fr sheath History of esophagogastroduodenoscopy (EGD) Hx of cataract extraction Hx of melanoma excision stomach S/P dilation and curettage History of cryosurgery History of colonoscopy (10/12/19) 4 polyps removed, [facility] GI, Dr. Roque S/P tonsillectomy S/P sinus surgery S/P SUMAN-BSO S/P laparoscopic cholecystectomy S/P appendectomy Family History Mother Diabetes Father Heart disease Other Asthma Cancer Gallbladder disease Hypertension Stroke Denies family history of Ovarian cancer Myocardial infarction Breast cancer Colorectal cancer Colonic polyp Uterine cancer Social History Smoking Status: Former smoker Tobacco Type: Cigarettes Age Started Using Tobacco: 18; Age Quit Using Tobacco: 58; Second Hand Exposure: No; Do You Dip or Chew Tobacco: No; Hx Alcohol Use: No Hx Substance Use: No Preferred Language: Guinean Communication Ability: Effective Visual Impairment: No Limitations Hearing Ability: Normal Biomed Tech Required: No Beliefs That Will Affect Care: None marital status: Current Living Situation: Spouse Current Living Situation Comment: [facility] [place] current occupational status: disabled Feels Safe at Home: Yes Childhood Exposure to Second-Hand Smoke: Yes Dental Care, Regularly: Yes Seatbelt Use: always Sunscreen Use: Yes Do you think of yourself as: straight/heterosexual Sexual Activity: has been sexually active within the last 12 months Assistive Devices: None Review of Systems 2 Review of Systems: Constitutionalno fever or chills ENTno blurred vision, no double vision, no epistaxis, no sore throat Respiratoryno cough, no wheezing, no shortness of breath Cardiacno palpitations, no chest pain, no syncope GIchronic abdominal discomfort and nausea. Occasional vomiting. No hematemesis. She denies melena and denies hematochezia GUno urinary retention, no urinary incontinence, no dysuria, no hematuria Musculoskeletalno joint pain, no muscle tenderness Skinno bruising, no rashes, no pruritus Neurono isolated weakness, no paresthesia, no weakness Psychshe is treated for depression and anxiety Physical Exam 2 Physical Exam: General-tearful, depressed 64-year-old white female. No fever. HEENT-head atraumatic and normocephalic, pupils equal and reactive to light, extraocular muscles intact Neck-no lymphadenopathy or thyromegaly, trachea midline Chest-clear to auscultation. No rales, wheezing or rhonchi Cardiac-regular rate and rhythm, normal S1 and S2 Abdomen-normal bowel sounds, no hepatosplenomegaly. Nondistended. Epigastric tenderness without palpable masses. No rebound or guarding Extremities-no cyanosis, clubbing, or edema Neuro-cranial nerves II through XII intact, motor and sensory function within normal limits, strength symmetrical, no focal deficits Psych-depressed affect. Tearful Results & Data Results & Data Vital Signs (Past 12 Hours) Vital Signs Temp Pulse Pulse Resp BP BP Pulse Ox 01/24/25 17:59 69 01/24/25 17:35 79 18 106/73 98 01/24/25 16:37 73 17 115/79 99 01/24/25 15:00 73 18 144/60 H 01/24/25 14:45 75 10/14/25 14:05 74 18 143/76 H 99 01/24/25 13:31 66 155/75 H 98 01/24/25 13:20 99 01/24/25 12:48 36.0 C L 80 18 147/85 H 98 O2 Del Method 01/24/25 17:59 01/24/25 17:35 Room Air 01/24/25 16:37 Room Air 01/24/25 15:00 01/24/25 14:45 01/24/25 14:05 Room Air 01/24/25 13:31 Room Air 01/24/25 13:20 Room Air 01/24/25 12:48 Laboratory Results 01/24/25 13:20 01/24/25 13:20 Code Status & VTE Plan Code Status Full code PG Care Time/CCT Total # of Minutes Spent Total Time Spent with Patient: Total time spent is greater than 50% in coordination of care (as documented) at patient's floor/unit and/or counseling patient: Coding Level of Care Code 86022 INT INP/OBS CARE 3/75MIN Diagnoses Chronic abdominal pain R10.9; G89.29 Essential hypertension I10 Primary hypothyroidism E03.9 Anxiety and depression F41.9; F32.A
[2025-01-24 18:11] LABS: Adenovirus F 40/41 PCR Not Detected (NotDetected); Campylobacter PCR Not Detected (NotDetected); Enteroaggregative E.coli(EAEC) Not Detected (NotDetected); Shiga-like Toxin E.coli (STEC) Not Detected (NotDetected); Vibrio species PCR Not Detected (NotDetected)
[2025-01-24] MEDS: MoRPHine SULFATE 2 MG/ML CARP IV PRN (21:50)
[2025-01-24] MEDS: PROPRANOLOL HCL 60 MG LA CAP PO SCH (21:51)
[2025-01-24] MEDS: SUCRALFATE 1 GM TAB PO SCH (21:51)
[2025-01-24 22:06] LABS: T4 Free Thyroxine 1.29 ng/dl (0.61-1.60)
[2025-01-24] MEDS: SODIUM CHLORIDE 0.9% 1,000 ML IV SCH (22:12)
[2025-01-24] MEDS: ONDANSETRON INJ 2 MG/ML 2 ML VIAL IV PRN (22:18)
[2025-01-25] MEDS: LEVOTHYROXINE SODIUM 88 MCG TABLET PO SCH (06:04)
[2025-01-25] MEDS: ACETAMINOPHEN 1,000 MG/100 ML VIAL IV PRN (07:54)
[2025-01-25] MEDS: ARTIFICIAL TEARS OP SCH (08:45)
[2025-01-25 08:55] LABS: Hematocrit (blood only) 35.3 % (37.0-47.0); Hemoglobin 10.7 g/dl (12.0-16.0); Immature Granulocytes # (auto) 0.02 K/uL (0.01-0.20); Immature Granulocytes % (auto) 0.4 %; Mean Corpuscular Hemoglobin 25.8 pg (25.0-34.0); Mean Corpuscular Volume 85.1 fL (80.0-100.0); Platelet Count 235 K/uL (130-400); RDW Standard Deviation 44.0 fL (36.4-46.3); Red Blood Count 4.15 M/uL (4.20-5.40); White Blood Count 5.08 K/ul (4.8-10.8)
[2025-01-25] MEDS ORDERED: INFLUENZA VACC TS2025-26(65y+)/PF (IIV3) 0.5mL Syr IM ONE (09:00)
[2025-01-25 09:12] LABS: Anion Gap 3.0 (3-11); Blood Urea Nitrogen 9.0 mg/dl (6-23); Calcium 8.4 mg/dl (8.6-10.3); Carbon Dioxide 28.0 mmol/L (21-32); Chloride 110.0 mmol/L (98-107); Creatinine Clr Calc Pharmacy 87.4 ml/min; Glucose 93.0 mg/dl (70-99(Fasting)); Potassium 4.3 mmol/L (3.5-5.1); Sodium 141.0 mmol/L (136-145)
[2025-01-25] MEDS: CHOLECALCIFEROL 25 MCG (1000 UNITS) TAB PO SCH (09:49)
[2025-01-25] MEDS: MoRPHine SULFATE 4 MG/ML 1 ML CARP\\VIAL ONE (11:00)
[2025-01-25] MEDS: POLYETHYLENE (MIRALAX) 17 GM PACK PO SCH (13:17)
[2025-01-25 15:22] VITALS: RESP 16
--- NOTE | 2025-01-25 17:23 | Hospitalist Progress Note ---
Date of Service January 25, 2025 Assessment & Plan (1) Chronic abdominal pain: Plan: She does have symptoms of gastritis and will continue Protonix and add Carafate. Pain control measures. She is currently on a drug holiday except for her essential medications. IV fluids have been tapered down. (2) Essential hypertension: Plan: Continue propranolol at bedtime. Currently controlled (3) Primary hypothyroidism: Plan: Continue levothyroxine supplementation. Free T3 and free T4 levels are within an acceptable range. (4) Anxiety and depression: Plan: Xanax as needed. 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 She is still complaining of epigastric abdominal pain though. Will continue Carafate and Protonix. She is complaining of vaginal irritation and gynecology consultation has been requested. IV fluids have been tapered down. MiraLAX has been ordered twice daily due to patient complaints of constipation. Review of Systems 2 Review of Systems: Constitutionalno fever or chills ENTno blurred vision, no double vision, no epistaxis, no sore throat Respiratoryno cough, no wheezing, no shortness of breath Cardiacno palpitations, no chest pain, no syncope GIchronic abdominal discomfort and nausea. Occasional vomiting. No hematemesis. She denies melena and denies hematochezia GUno urinary retention, no urinary incontinence, no dysuria, no hematuria Musculoskeletalno joint pain, no muscle tenderness Skinno bruising, no rashes, no pruritus Neurono isolated weakness, no paresthesia, no weakness Psychshe is treated for depression and anxiety Physical Exam 2 Physical Exam: General-tearful, depressed 64-year-old white female. No fever. HEENT-head atraumatic and normocephalic, pupils equal and reactive to light, extraocular muscles intact Neck-no lymphadenopathy or thyromegaly, trachea midline Chest-clear to auscultation. No rales, wheezing or rhonchi Cardiac-regular rate and rhythm, normal S1 and S2 Abdomen-normal bowel sounds, no hepatosplenomegaly. Nondistended. Epigastric tenderness without palpable masses. No rebound or guarding Extremities-no cyanosis, clubbing, or edema Neuro-cranial nerves II through XII intact, motor and sensory function within normal limits, strength symmetrical, no focal deficits Psych-depressed affect. Tearful Results & Data Results & Data Vital Signs (Past 12 Hours) Vital Signs Temp Pulse Resp BP Pulse Ox O2 Del Method 01/25/25 15:21 36.5 C 74 16 169/71 H 93 Room Air 01/25/25 08:43 36.7 C 67 19 113/71 94 Room Air Laboratory Results 01/25/25 08:14 01/25/25 08:14 PG Care Time/CCT Total # of Minutes Spent Total Time Spent with Patient: Total time spent is greater than 50% in coordination of care (as documented) at patient's floor/unit and/or counseling patient: Coding Level of Care Code 06623 SUB INP/OBS CARE 2/35MIN Diagnoses Chronic abdominal pain R10.9; G89.29 Essential hypertension I10 Primary hypothyroidism E03.9 Anxiety and depression F41.9; F32.A Vaginitis N76.0
--- NOTE | 2025-01-25 18:08 | OB/GYN Consultation ---
Date of Consultation January 25, 2025 Assessment & Plan (1) Vulvar burning: Broad differential of long-term chronic vulvar burning. Vulvodynia is a possibility and if that is the case, no antifungal or antibiotic treatments will help; gabapentin and other neuropathic pain methods are more likely to make a difference but can have significant s/e in the elderly in particular. Genitourinary syndrome of menopause is unlikely as she has been on estradiol for a long time and does not feel it is fixing the issue. Recent cultures have been very numerous and have shown an expected variety of vaginal diana and skin / fecal type bacteria with no consistent trend, likely representing normal vaginal diana and making vaginal infection unlikely. Her symptoms suggest lichenoid autoimmune vulvitis, which is why she has previously been counseled to have an outpatient vulvar biopsy including at her last outpatient visit. However, architecture is preserved and no pale skin change is observed today, so I'm unsure if this is very likely. Can trial hydrocortisone 1% topical ointment to see if it helps, which it will if the issue is lichenoid vulvitis; risk is low anyway. She will likely have to wait until outpatient setting to have vulvar biopsy, as this would be impractical in the hospital. Continue vaginal estradiol, trial topical hydrocort if desired, and schedule f/u. I'll order a urine GC/CT screen based on her agreeing to STD test after I'd already completed her vulvovaginal exam today. History of Present Illness Attending Physician: Jez Christianson MD History of Present Illness 64yo admitted with gastroenteritis per patient. 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 Chart review shows patient has undergone 8 vaginal cultures in the past 10 months, most recently 20 days ago, for chronic c/o vaginal burning. She uses estradiol vaginal cream 3x/week and continues to apply her own supply of this cream during hospital admission. She states this does not help. She is concerned that she may have yeast due to recent antibiotic use and also BV which she believes she had many years ago. She does not have itching. She does not have discharge. Her concern of these particular diagnoses seems to primarily stem from knowing she has had them in the past, and being rather desperate for relief of what has been essentially unchanged vaginal burning for a long time now. She is sexually active and initially declines STD testing, but at the end of my visit does accept. Allergies Allergy/AdvReac Type Severity Reaction Status Date / Time bacitracin Allergy Intermediate Hives Verified 01/05/25 14:17 [From Neosporin ([id number])] famotidine Allergy Intermediate Hives Verified 01/05/25 14:17 neomycin Allergy Intermediate Hives Verified 01/05/25 14:17 [From Neosporin ([id number])] polymyxin B Allergy Intermediate Hives Verified 01/05/25 14:17 [From Neosporin ([id number])] amoxicillin [From Augmentin] AdvReac Intermediate Caused C. Verified 01/05/25 14:17 diff clavulanic acid AdvReac Intermediate Caused C. Verified 01/05/25 14:17 [From Augmentin] diff lactose AdvReac Intermediate Gastrointestinal Verified 01/05/25 14:17 Upset olmesartan AdvReac Intermediate Diarrhea Verified 01/05/25 14:17 vilanterol AdvReac Intermediate Swelling Verified 01/05/25 14:17 [From Breo Ellipta] of legs/feet and GI Upset levofloxacin AdvReac Unknown tendinopathy Verified 01/05/25 14:17 - undetermined if med was cause. Home Medications Medication Instructions Recorded Confirmed Type vitamin E 268 mg (400 unit) capsule 400 unit PO QAM 09/06/18 01/24/25 History inhalational spacing device #1 ea 09/22/18 01/05/25 Rx (Vortex Holding Chamber) ascorbate calcium (vitamin C) 500 1,000 mg PO QAM 08/06/20 01/24/25 History mg tablet albuterol sulfate 90 mcg/actuation 2 puff inhalation Q4H PRN 05/19/22 01/24/25 Rx aerosol inhaler (Ventolin HFA) Shortness Of Breath Or Wheezing #18 grams bupropion HCl 150 mg tablet,12 hr 150 mg PO BID #180 ea 07/11/22 01/24/25 Rx sustained-release fluticasone propionate 50 1 spray intranasal DAILY 30 days 07/22/22 01/24/25 Rx mcg/actuation nasal #48 grams spray,suspension atorvastatin 20 mg tablet 20 mg PO HS #90 tabs 11/13/22 01/24/25 Rx levocetirizine 5 mg tablet 5 mg PO HS 02/13/23 01/24/25 History levothyroxine 88 mcg tablet 88 mcg PO QAM 02/13/23 01/24/25 History budesonide-formoterol HFA 80 2 inh inhalation BID #30.59 grams 05/07/23 01/24/25 Rx mcg-4.5 mcg/actuation aerosol inhaler (Symbicort) activated charcoal 260 mg capsule 260 mg PO .3 TIMES WEEKLY 06/18/23 01/24/25 History coQ10 (ubiquinol) 100 mg capsule 100 mg PO QAM 06/18/23 01/24/25 History Saccharomyces boulardii 250 mg 250 mg PO BID #20 caps 06/26/23 01/24/25 Rx capsule (Florastor) cyclosporine 0.09 % eye drops in a 1 drp OPB BID 08/22/23 01/24/25 History dropperette (Cequa) cholecalciferol (vitamin D3) 50 50 mcg PO QAM 03/23/24 01/24/25 History mcg (2,000 unit) tablet (Vitamin D3) dicyclomine 10 mg capsule 10 mg PO TID PRN Abd pain 03/23/24 01/24/25 History ondansetron 4 mg disintegrating 4 mg PO Q6H PRN nausea and 08/12/24 01/24/25 Rx tablet vomiting #30 tabs propranolol 60 mg capsule,24 60 mg PO HS 10/15/24 01/24/25 History hr,extended release alprazolam 0.25 mg tablet 0.25 mg PO Q8H PRN anxiety #10 tabs 10/20/24 01/24/25 Rx pantoprazole 40 mg tablet,delayed 40 mg PO BID #60 tabs 10/20/24 01/24/25 Rx release promethazine 25 mg tablet 25 mg PO TID PRN abdominal pain 11/27/24 01/24/25 Rx #10 tabs gabapentin 100 mg capsule 200 mg PO BID 12/26/24 01/24/25 History estradiol 0.01% (0.1 mg/gram) 1 g vaginal 3XWK #42.5 grams 01/05/25 01/24/25 Rx vaginal cream cimetidine 200 mg tablet 200 mg PO BID #60 tabs 01/11/25 01/24/25 Rx nystatin 100,000 unit/gram topical 1 applic topical UD PRN Other 01/24/25 01/24/25 History ointment Patient History Medical History Urinary tract infection abx completed 06/28 or 06/30/23 - feeling better, all symptoms gone except some pressure. Pre op edu rev. Diverticulosis hx Gastritis History of gastric polyp History of colon polyps Vertigo none for over a month Kidney stones current Renal mass [place] [facility] aware, monitoring Paresthesia of upper extremity sometimes arms Diarrhea current : on occ /finished abx recently. History of Helicobacter pylori infection Hx of Clostridium difficile infection Remote hx approximately 30 years ago History of COVID-19 03/19/2023 ([facility], [place]) > resolved 11/2021- fatigue, congestion, cough, sore throat > resolved pt reports has had a total of 3 times : 1st time in 2019 ? Hx of melanoma of skin Pulmonary embolism Remote hx approximately 30 years ago, after SUMAN (blood thinners x 3 months) Acute diverticulitis listed in differential diagnosis 04/14/23 by hospitalist, not included on discharge summary Sciatica hx COPD (chronic obstructive pulmonary disease) well controlled per pt, rare res inh use Mild reactive airways disease Depression with anxiety Esophageal reflux Fibromyalgia Hypertension Irritable bowel syndrome Hypothyroidism Hyperlipidemia History of asthma Surgical History History of lithotripsy History of cystoscopy Hx of vascular surgery Dr Morales [facility] 07/2022 Distal LT GSV accessed under ultrasound guidance with placement of 4Fr sheath History of esophagogastroduodenoscopy (EGD) Hx of cataract extraction Hx of melanoma excision stomach S/P dilation and curettage History of cryosurgery History of colonoscopy (10/12/19) 4 polyps removed, [facility] GI, Dr. Roque S/P tonsillectomy S/P sinus surgery S/P SUMAN-BSO S/P laparoscopic cholecystectomy S/P appendectomy Family History Mother Diabetes Father Heart disease Other Asthma Cancer Gallbladder disease Hypertension Stroke Denies family history of Ovarian cancer Myocardial infarction Breast cancer Colorectal cancer Colonic polyp Uterine cancer Social History Smoking Status: Former smoker Tobacco Type: Cigarettes Age Started Using Tobacco: 18; Age Quit Using Tobacco: 58; Second Hand Exposure: No; Do You Dip or Chew Tobacco: No; Hx Alcohol Use: No Hx Substance Use: No Preferred Language: Irish Communication Ability: Effective Visual Impairment: No Limitations Hearing Ability: Normal Warehouse Person Required: No Beliefs That Will Affect Care: None marital status: Current Living Situation: Spouse Current Living Situation Comment: Uday [place] current occupational status: disabled Feels Safe at Home: Yes Childhood Exposure to Second-Hand Smoke: Yes Dental Care, Regularly: Yes Seatbelt Use: always Sunscreen Use: Yes Do you think of yourself as: straight/heterosexual Sexual Activity: has been sexually active within the last 12 months Assistive Devices: Walker Physical Exam Physical Exam: Thin habitus female appearing stated age or slightly older, in hospital gown, with her adult son at the bedside. Conversant and cooperative. NAD. Abdomen soft NT/ND. Vulvar exam shows normal skin color and preserved architecture; no erythema, no blood present, no discharge. Internal exam deferred. Results & Data Vital Signs (Past 12 Hours) Vital Signs Temp Pulse Resp BP Pulse Ox O2 Del Method 01/25/25 15:21 97.7 F 74 16 169/71 H 93 Room Air 01/25/25 08:43 98.1 F 67 19 113/71 94 Room Air PG Care Time/CCT Total # of Minutes Spent Total Time Spent with Patient: Total time spent is greater than 50% in coordination of care (as documented) at patient's floor/unit and/or counseling patient: Coding Level of Care Code 44463 INT INP/OBS CARE 1/40MIN Diagnoses Vulvar burning N94.89
[2025-01-26 07:44] LABS: Hematocrit (blood only) 32.8 % (37.0-47.0); Hemoglobin 9.9 g/dl (12.0-16.0); Immature Granulocytes # (auto) 0.01 K/uL (0.01-0.20); Immature Granulocytes % (auto) 0.2 %; Mean Corpuscular Hemoglobin 25.9 pg (25.0-34.0); Mean Corpuscular Volume 85.9 fL (80.0-100.0); Platelet Count 207 K/uL (130-400); RDW Standard Deviation 44.1 fL (36.4-46.3); Red Blood Count 3.82 M/uL (4.20-5.40); White Blood Count 4.33 K/ul (4.8-10.8)
[2025-01-26 07:57] LABS: Anion Gap 3.0 (3-11); Blood Urea Nitrogen 6.0 mg/dl (6-23); Calcium 8.6 mg/dl (8.6-10.3); Carbon Dioxide 29.0 mmol/L (21-32); Chloride 110.0 mmol/L (98-107); Creatinine Clr Calc Pharmacy 83.0 ml/min; Glucose 92.0 mg/dl (70-99(Fasting)); Potassium 4.5 mmol/L (3.5-5.1); Sodium 142.0 mmol/L (136-145)
[2025-01-26 08:00] VITALS: BP 146/76; PULSE 67; TEMP 98.1; O2SAT 96
[2025-01-26] MEDS: HYDROCORTISONE 1% CRM 30 GM TUBE EXT STA (11:47)
[2025-01-26 12:25] LABS: Chlam trach RNA(Genit,Ureth,Ur Not Detected (NotDetected); GC(Neis gon)RNA(Genit,Ureth,Ur Not Detected (NotDetected)
--- NOTE | 2025-01-26 13:30 | Discharge Summary ---
Discharge Summary Date of Service January 26, 2025 Principal Dx & Hospital Course #1 = Principal Diagnosis (1) Chronic abdominal pain: She does have symptoms of gastritis and will continue Protonix and add Carafate. Pain control measures. She is currently on a drug holiday except for her essential medications. IV fluids have been tapered down and will now be discontinued. Fentanyl patch was started and seems to be helping with her abdominal pain. This will be continued at discharge (2) Essential hypertension: Continue propranolol at bedtime. Currently controlled (3) Primary hypothyroidism: Continue levothyroxine supplementation. Free T3 and free T4 levels are within an acceptable range. (4) Anxiety and depression: Xanax as needed. Bupropion and gabapentin have been discontinued (5) Vaginitis: [employer] WE[employer]HER consult appreciated. 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 Topical hydrocortisone 1% cream has been recommended. Plan Home today, January 26 Admission HPI Per Admitting Provider 64-year-old white female with chronic abdominal pain who came to the ED for evaluation. She states her pain has been ongoing for years and has recently worsened. She occasionally vomits but denies any hematemesis, melena, hematochezia. She sees multiple subspecialists and her prescription count is around 12 not counting the supplements that she takes. I think she would do well with a medication holiday except for essentials like levothyroxine, propranolol, pantoprazole. Carafate will be added. All other medications will be placed on hold. Pain control measures with as needed IV morphine as needed. Observation for now. Discharge Exam General-tearful, depressed 64-year-old white female. No fever. HEENT-head atraumatic and normocephalic, pupils equal and reactive to light, extraocular muscles intact Neck-no lymphadenopathy or thyromegaly, trachea midline Chest-clear to auscultation. No rales, wheezing or rhonchi Cardiac-regular rate and rhythm, normal S1 and S2 Abdomen-normal bowel sounds, no hepatosplenomegaly. Nondistended. Epigastric tenderness without palpable masses. No rebound or guarding Extremities-no cyanosis, clubbing, or edema Neuro-cranial nerves II through XII intact, motor and sensory function within normal limits, strength symmetrical, no focal deficits Psych-depressed affect. 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 Use hydrocortisone 1% cream as needed for vulvar irritation. Follow-up with primary care provider and dental ceramist assistant as soon as possible. Use hydrocortisone 1% cream as needed for vulvar irritation. This can be purchased [id number] without a prescription. Continue Carafate tablet 3-4 times a day on an empty stomach. Continue Protonix to suppress stomach acid. Change the fentanyl patch every 3 days. Fentanyl is for pain control. Prescriptions have been sent to your pharmacy Pending Studies at Discharge: No Stand-Alone Forms: My [employer], Smoking Cessation Medications and DC Order Prescriptions: New sucralfate 1 gram Tablet 1 g PO QID Qty: 90 0RF fentanyl 25 mcg/hr Patch 72 Hour 1 patch transdermal Q3D Qty: 5 0RF polyethylene glycol 3350 [Miralax] 17 gram Powder In Packet 17 g PO BID Qty: 0 0RF Continued albuterol sulfate [Ventolin HFA] 90 mcg/actuation HFA aerosol inhaler 2 puff inhalation Q4H PRN (Reason: Shortness Of Breath Or Wheezing) Qty: 18 5RF fluticasone propionate 50 mcg/actuation spray,suspension 1 spray intranasal DAILY 30 Days Qty: 48 3RF Rx Instructions: 1 SPRAY IN EACH NOSTRIL DAILY budesonide-formoterol [Symbicort] 80-4.5 mcg/actuation HFA aerosol inhaler 2 inh inhalation BID Qty: 30.59 3RF Hold Instructions: Gastritis Rx Instructions: INHALE 2 PUFFS INTO THE LUNGS TWICE A DAY ondansetron 4 mg tablet,disintegrating 4 mg PO Q6H PRN (Reason: nausea and vomiting) Qty: 30 2RF estradiol 0.01 % (0.1 mg/gram) cream 1 g VAGINAL 3XWK Qty: 42.5 3RF Rx Instructions: Mon/Wed/Fri levothyroxine 88 mcg tablet 88 mcg PO QAM cholecalciferol (vitamin D3) [Vitamin D3] 50 mcg (2,000 unit) Tablet 50 mcg PO QAM Cequa 0.09 % dropperette 1 drp OPB BID Rx Instructions: hasnt started yet propranolol 60 mg capsule,extended release 24 hr 60 mg PO HS Rx Instructions: PER PT "HAVEN'T TAKEN FOR 2 DAYS, D/T B/P BEING TOO LOW". pantoprazole 40 mg Tablet,Delayed Release (Dr/Ec) 40 mg PO BID Qty: 60 0RF alprazolam 0.25 mg tablet 0.25 mg PO Q8H PRN (Reason: anxiety) Qty: 10 0RF Discontinued bupropion HCl 150 mg tablet sustained-release 12 hr 150 mg PO BID Qty: 180 3RF atorvastatin 20 mg tablet 20 mg PO HS Qty: 90 3RF cimetidine 200 mg tablet 200 mg PO BID Qty: 60 2RF Rx Instructions: administer with meals (DME) Vortex Holding Chamber spacer See Dose Instructions .ROUTE .MEDSUPPLY Qty: 1 0RF Dose Instruction: As directed Rx Instructions: As directed ascorbate calcium (vitamin C) 500 mg tablet 1,000 mg PO QAM Patient Comments: per pt she doesnt take everyday vitamin E 400 unit Capsule 400 unit PO QAM levocetirizine 5 mg tablet 5 mg PO HS Saccharomyces boulardii [Florastor] 250 mg capsule 250 mg PO BID Qty: 20 0RF Rx Instructions: swallow whole dicyclomine 10 mg capsule 10 mg PO TID PRN (Reason: Abd pain) gabapentin 100 mg capsule 200 mg PO BID coQ10 (ubiquinol) 100 mg Capsule 100 mg PO QAM activated charcoal 260 mg Capsule 260 mg PO .3 TIMES WEEKLY promethazine 25 mg tablet 25 mg PO TID PRN (Reason: abdominal pain) Qty: 10 0RF nystatin 100,000 unit/gram ointment 1 applic TOPICAL UD PRN (Reason: Other) Discharge Orders: Discharge Order (Routine); Ordered 01/26/25 Ordered By: Jez Christianson Admission Data Admit Date/Time: 01/24/25 17:52 Attending Provider: Jez Christianson Admit Provider: Jez Christianson Primary Care Provider: La Nena Garrett Other Providers: Jez Christianson; Mera Clark; Ana Agarwal; Margaret Ann; Pallavi Castano; Nancy Carreon; Mika Hanley; Ana Maria Gong; Kate Soler; Liliana Gillespie; Chu Medina; Saige Burns; Dorcas Miller Other Interventions: Discharge Summary Assessment (RN) Last Done: 01/26/25 12:11 Hospital Stay Data Consultations 01/24/25 16:48 ED Decision to Admit Stat 01/25/25 15:53 Consult Gynecology Routine Diagnostic Imagining Performed 01/24/25 13:03 CT abd pelvis IV con only Stat Pending Results Patient Have Any Pending Studies at Discharge: No Discharge Instructions Given to Patient (Per Discharging Provider) Multiple medications have been discontinued. Use hydrocortisone 1% cream as needed for vulvar irritation. Follow-up with primary care provider and dental ceramist assistant as soon as possible. Use hydrocortisone 1% cream as needed for vulvar irritation. This can be purchased [id number] without a prescription. Continue Carafate tablet 3-4 times a day on an empty stomach. Continue Protonix to suppress stomach acid. Change the fentanyl patch every 3 days. Fentanyl is for pain control. Prescriptions have been sent to your pharmacy Total Time Total Time Spent Total Time Spent (In Minutes): 50 minutes Coding Level of Care Code 05904 INP/OBS DISCH >30 MIN Diagnoses Chronic abdominal pain R10.9; G89.29 Essential hypertension I10 Primary hypothyroidism E03.9 Anxiety and depression F41.9; F32.A Vaginitis N76.0
== END 2025-01-26 14:26 | disposition home or self-care (01) ==
LOC: SUATTDRO → ED 12:38 → 3N 12:38

== ENCOUNTER 2025-02-14 16:09 | Observation (INO) ==
[2025-02-14 17:05] LABS: Appearance Urine Clear (Clear); Glucose Urine UA Negative (Negative); Hematocrit (blood only) 37.9 % (37.0-47.0); Hemoglobin 11.8 g/dl (12.0-16.0); Immature Granulocytes # (auto) 0.03 K/uL (0.01-0.20); Immature Granulocytes % (auto) 0.3 %; Mean Corpuscular Hemoglobin 26.2 pg (25.0-34.0); Mean Corpuscular Volume 84.0 fL (80.0-100.0); Platelet Count 321 K/uL (130-400); RDW Standard Deviation 43.1 fL (36.4-46.3); Red Blood Count 4.51 M/uL (4.20-5.40); White Blood Count 10.33 K/ul (4.8-10.8)
--- NOTE | 2025-02-14 17:14 | Emergency Department Note ---
Impression & Plan Intractable abdominal pain, Chronic pain syndrome, Chronic anemia ED Provider Note NAME: IRAIS EVERETT AGE: 64 SEX: F : 1960 ARRIVES VIA: Walk-In INFORMANT: Patient, ED PROVIDER(S): Ortiz Stubbs DO CHIEF COMPLAINT: abdominal pain, LUTS HPI: This is a 64-year-old female with the PMHx of chronic abdominal pain, venous insufficiency, anemia, depression and vertigo presenting to [facility] for further evaluation of abdominal pain. Patient is accompanied by her who provide additional history. Patient is reporting lower quadrant abdominal pain. She states this has been ongoing for years. She has had extensive workups. She also reports lower urinary tract symptoms. She states that she has urinary frequency and burning. She also reports nausea and chills. Patient states she is not able to tolerate p.o. intake secondary to symptoms. Patient states that she is on fentanyl patches and ran out of patches yesterday. Patient also states that she stopped taking her gabapentin. They deny fever. No cough or congestion. Denies chest pain or palpitations. No shortness of breath. No recent changes in bowel movements. Patient denies recent changes in medications or OTC supplements. Patient offers no other complaints, today. ADDITIONAL HISTORY OBTAINED: Per HPI Chronic Medical/Social Conditions Affecting Care: Per HPI PAST MEDICAL HISTORY: See Below PAST SURGICAL HISTORY: See Below FAMILY HISTORY: See Below SOCIAL HISTORY: See Below HOME MEDICATIONS: See Below ALLERGIES: See Below VITALS: See Below PHYSICAL EXAMINATION: GENERAL: Sitting up in bed, alert, well appearing, well nourished, no distress, non-toxic EYE EXAM: normal conjunctiva. OROPHARYNX: no exudate, no erythema, lips, buccal mucosa, and tongue normal and mucous membranes are dry NECK: supple, no nuchal rigidity, no adenopathy, non-tender LUNGS: Clear to auscultation. Normal chest wall mechanics HEART: no murmurs, regular rate, regular rhythm ABDOMEN: abdomen soft, TTP in the lower quadrants, no masses, no rebound or guarding. BACK: Back is symmetrical on inspection and there is no deformity, no midline tenderness, no CVA tenderness. SKIN: no rashes and no bruising UPPER EXTREMITIES: upper extremities are grossly normal. LOWER EXTREMITIES: No pitting edema. NEURO EXAM: Normal sensorium, GCS 15, normal speech, no gross weakness of arms, no gross weakness of legs. MEDICAL DECISION MAKING: Differential diagnoses includes but not limited to chronic pain syndrome, functional abdominal pain, electrolyte derangements, dehydration, ischemic colitis, appendicitis, bowel obstruction, diverticulitis, malignancy, nephrolithiasis, gastroenteritis, pancreatitis, hepatobiliary disease, UTI In summary, this is a 64 year old female who presented with abdominal pain. Differential as above. Nursing notes and pertinent past medical records reviewed. Vital signs reviewed and the patient is hypertensive but otherwise afebrile and hemodynamically stable. History and presentation revealed chronic abdominal pain with extensive workups and admissions in the past. Recently ran out of pain medications at home. Physical examination revealed no significant evidence of peritonitis. As a result of my initial evaluation, we will plan to manage the patient's pain and proceed with further workup including labs as well as imaging with CT abdomen/pelvis. IV access was established and the patient was placed on CCRM. Diagnostics interpreted by me include cardiac monitoring as listed below: -Cardiac Monitoring: An order was placed for continuous cardiac monitoring. The monitor shows a rate of 60-90s with regular rhythm. Patient completed laboratory studies and imaging. Results independently interpreted by me are Mild anemia but no significant leukocytosis. Urinalysis does not show signs of infection.. The patient was managed with IV fluid resuscitation, multimodal pain control and antiemetics. We have attempted multiple modalities for pain control while in the emergency department as well as a GI cocktail. The patient fails to improve. She is tearful and still complaining of lower quadrant abdominal pain. Patient has had an extensive workup with normal labs, urinalysis and CT imaging. Do believe this is likely chronic abdominal pain but she has been unable to tolerate p.o. intake secondary to the pain. I did discuss with her trialing a period of observation as an outpatient and close outpatient follow-up by her PCP but she feels that she is unable to manage her pain at home. Patient is currently out of her fentanyl patches that were previously prescribed. She has also stopped her gabapentin for unknown reasons. Patient's pain is likely chronic in nature but I am unable to safely discharge the patient as she cannot tolerate p.o. intake and her pain is not controlled. I did consider ischemic colitis but she has a normal lactate and vital signs. Patient does not seem to be peritonitic on physical examination. I have very low suspicion for this. Again, I do feel this is likely chronic abdominal pain in nature but given that she continues to have pain and appears ill, I would recommend further workup as an inpatient. She will need intensive outpatient follow-up but at this time she is unsafe for discharge. Plan discussed with the hospitalist team for admission for pain control given that her abdominal pain is intractable. Ultimately, the decision was made to admit the patient for intractable abdominal pain. I discussed the case with the hospitalist service via telephone/TigerText and they are agreeable to admit the patient to their services. Based on the above, including the patient's age, coexisting illnesses, labs, imaging, and exam findings the decision to treat as an outpatient. I discussed my findings with the patient and they understand and agree with the treatment plan. Patient / Patient's family was counseled regarding concerning signs and symptoms that should prompt re-evaluation in the ED, and they expressed understanding. All patient / family questions were answered to their satisfaction. Strict return precautions were reviewed. See discharge instructions for more complete detail and supportive care recommendations. Consults/Care Managements Discussions: Per MDM ER treatment provided: See above Procedures:none Critical Care: None The chart was completed utilizing [employer] Speech voice recognition software. Grammatical errors, random word insertions, pronoun errors, and incomplete sentences are an occasional consequence of this system due to software limitations, ambient noise, and hardware issues. Any formal questions or concerns about the content, text, or information contained within the body of this dictation should be directly addressed to the physician for clarification. Past Med/Surg History Problem List (Updated 02/15/25 @ 03:05 by Ortiz Stubbs DO) Chronic anemia (Acute) Chronic pain syndrome (Acute) Intractable abdominal pain (Acute) Acute exacerbation of chronic abdominal pain Chronic abdominal pain Leiomyoma Constipation Generalized abdominal pain (Acute) Enterocolitis Anemia Abnormal computerized axial tomography of liver (Acute) Vulvar burning Chronic nausea Drug allergy Atrophic vaginitis Right kidney mass Recurrent UTI Depression Abnormal findings on imaging of biliary tract Abdominal pain (Acute) Bilateral kidney stones Epigastric pain Hip tendinitis Calcium kidney stone Hamstring tendinitis Arthritis of hip Hx of diverticulitis of colon Greater trochanteric pain syndrome Palpitations Chronic venous insufficiency Pain of right sacroiliac joint Helicobacter pylori infection C. difficile colitis Allergic rhinitis (Chronic) Idiopathic urticaria (Acute) Chronic sinusitis (Chronic) Impaired fasting glucose (Chronic) Medical History Urinary tract infection abx completed 06/28 or 06/30/23 - feeling better, all symptoms gone except some pressure. Pre op edu rev. Diverticulosis hx Gastritis History of gastric polyp History of colon polyps Vertigo none for over a month Kidney stones current Renal mass [place] [facility] aware, monitoring Paresthesia of upper extremity sometimes arms Diarrhea current : on occ /finished abx recently. History of Helicobacter pylori infection Hx of Clostridium difficile infection Remote hx approximately 30 years ago History of COVID-19 03/19/2023 ([place], [place]) > resolved 11/2021- fatigue, congestion, cough, sore throat > resolved pt reports has had a total of 3 times : 1st time in 2019 ? Hx of melanoma of skin Pulmonary embolism Remote hx approximately 30 years ago, after SUMAN (blood thinners x 3 months) Acute diverticulitis listed in differential diagnosis 04/14/23 by hospitalist, not included on discharge summary Sciatica hx COPD (chronic obstructive pulmonary disease) well controlled per pt, rare res inh use Mild reactive airways disease Depression with anxiety Esophageal reflux Fibromyalgia Hypertension Irritable bowel syndrome Hypothyroidism Hyperlipidemia History of asthma Surgical History History of lithotripsy History of cystoscopy Hx of vascular surgery Dr Morales [facility] 07/2022 Distal LT GSV accessed under ultrasound guidance with placement of 4Fr sheath History of esophagogastroduodenoscopy (EGD) Hx of cataract extraction Hx of melanoma excision stomach S/P dilation and curettage History of cryosurgery History of colonoscopy (10/12/19) 4 polyps removed, [facility], Dr. Roque S/P tonsillectomy S/P sinus surgery S/P SUMAN-BSO S/P laparoscopic cholecystectomy S/P appendectomy Family History Mother Diabetes Father Heart disease Other Asthma Cancer Gallbladder disease Hypertension Stroke Denies family history of Ovarian cancer Myocardial infarction Breast cancer Colorectal cancer Colonic polyp Uterine cancer Social History Smoking Status: Former smoker Tobacco Type: Cigarettes Age Started Using Tobacco: 18; Age Quit Using Tobacco: 58; Second Hand Exposure: No; Do You Dip or Chew Tobacco: No; Hx Alcohol Use: No Hx Substance Use: No Preferred Language: Khmer Communication Ability: Effective Visual Impairment: No Limitations Hearing Ability: Normal [employer] Required: No Beliefs That Will Affect Care: None marital status: Current Living Situation: Spouse Current Living Situation Comment: [facility] current occupational status: disabled Feels Safe at Home: Yes Childhood Exposure to Second-Hand Smoke: Yes Dental Care, Regularly: Yes Seatbelt Use: always Sunscreen Use: Yes Do you think of yourself as: straight/heterosexual Sexual Activity: has been sexually active within the last 12 months Assistive Devices: Walker Allergies Allergies Allergy/AdvReac Type Severity Reaction Status Date / Time bacitracin Allergy Intermediate Hives Verified 02/14/25 19:54 [From Neosporin ([id number])] famotidine Allergy Intermediate Hives Verified 02/14/25 19:54 neomycin Allergy Intermediate Hives Verified 02/14/25 19:54 [From Neosporin ([id number])] polymyxin B Allergy Intermediate Hives Verified 02/14/25 19:54 [From Neosporin ([id number])] amoxicillin [From Augmentin] AdvReac Intermediate Caused C. Verified 02/14/25 19:54 diff clavulanic acid AdvReac Intermediate Caused C. Verified 02/14/25 19:54 [From Augmentin] diff lactose AdvReac Intermediate Gastrointestinal Verified 02/14/25 19:54 Upset olmesartan AdvReac Intermediate Diarrhea Verified 02/14/25 19:54 vilanterol AdvReac Intermediate Swelling Verified 02/14/25 19:54 [From Breo Ellipta] of legs/feet and GI Upset levofloxacin AdvReac Unknown tendinopathy Verified 02/14/25 19:54 - undetermined if med was cause. Home Meds Home Medications Medication Instructions Recorded Confirmed levothyroxine 88 mcg tablet 88 mcg PO QAM 02/13/23 02/14/25 cyclosporine 0.09 % eye drops in a 1 drp OPB BID 08/22/23 02/14/25 dropperette (Cequa) propranolol 60 mg capsule,24 60 mg PO HS 10/15/24 02/14/25 hr,extended release Previous Rx's Medication Instructions Recorded albuterol sulfate 90 mcg/actuation 2 puff inhalation Q4H PRN 05/19/22 aerosol inhaler (Ventolin HFA) Shortness Of Breath Or Wheezing #18 grams budesonide-formoterol HFA 80 2 inh inhalation BID #30.59 grams 05/07/23 mcg-4.5 mcg/actuation aerosol inhaler (Symbicort) pantoprazole 40 mg tablet,delayed 40 mg PO BID #60 tabs 10/20/24 release estradiol 0.01% (0.1 mg/gram) 1 g vaginal 3XWK #42.5 grams 01/05/25 vaginal cream fentanyl 25 mcg/hr transdermal 1 patch transdermal Q3D #5 ea 01/26/25 patch sucralfate 1 gram tablet 1 g PO QID #90 tabs 01/26/25 Results & Data (ED) Vital Signs Vital Signs - 24 hr 02/14/25 16:39 02/14/25 17:15 02/14/25 17:57 Temperature 36.8 C Temperature Source Temporal Artery Scan Pulse Rate 85 Pulse Rate [Right Finger] 82 87 Pulse Rate from SpO2 Sensor Pulse Rhythm [Right Finger] Pulse Strength [Right Finger] Respiratory Rate 18 19 19 Respiratory Effort / Characteristics Respiratory Depth Respiratory Pattern Blood Pressure 162/87 H Blood Pressure [Right Arm] 174/99 H 168/101 H Blood Pressure Mean 112 Blood Pressure Mean [Right Arm] 124 123 Blood Pressure Position [Right Arm] Pulse Oximetry 98 97 97 Oxygen Delivery Method Room Air Room Air Sepsis New/Unexplained Change in Mental Status No Sepsis Action Taken by Nursing No Action Required 02/14/25 19:00 02/14/25 20:12 02/14/25 20:30 Temperature Temperature Source Pulse Rate 90 81 Pulse Rate [Right Finger] 82 Pulse Rate from SpO2 Sensor 81 Pulse Rhythm [Right Finger] Regular Pulse Strength [Right Finger] Normal Respiratory Rate 19 16 Respiratory Effort / Characteristics Non-Labored Spontaneous Respiratory Depth Normal Respiratory Pattern Regular Blood Pressure 149/86 H Blood Pressure [Right Arm] 160/91 H Blood Pressure Mean 107 Blood Pressure Mean [Right Arm] 114 Blood Pressure Position [Right Arm] Lying Pulse Oximetry 95 96 Oxygen Delivery Method Room Air Sepsis New/Unexplained Change in Mental Status Sepsis Action Taken by Nursing 02/14/25 22:06 02/15/25 00:15 Temperature Temperature Source Pulse Rate 74 67 Pulse Rate [Right Finger] Pulse Rate from SpO2 Sensor 74 67 Pulse Rhythm [Right Finger] Pulse Strength [Right Finger] Respiratory Rate 14 12 Respiratory Effort / Characteristics Respiratory Depth Respiratory Pattern Blood Pressure 146/74 H 175/86 H Blood Pressure [Right Arm] Blood Pressure Mean 98 115 Blood Pressure Mean [Right Arm] Blood Pressure Position [Right Arm] Pulse Oximetry 95 93 Oxygen Delivery Method Sepsis New/Unexplained Change in Mental Status Sepsis Action Taken by Nursing Laboratory Data 02/14/25 16:50 02/14/25 16:50 Lab Results 02/14/25 Range/Units 16:50 WBC 10.33 (4.8-10.8) K/ul RBC 4.51 (4.20-5.40) M/uL Hgb 11.8 L (12.0-16.0) g/dl Hct 37.9 (37.0-47.0) % MCV 84.0 (80.0-100.0) fL MCH 26.2 (25.0-34.0) pg MCHC 31.1 L (32.0-36.0) g/dL RDW Std Deviation 43.1 (36.4-46.3) fL RDW Coeff of Sánchez 14.1 (11.5-14.5) % Plt Count 321 (130-400) K/uL MPV 9.3 L (9.4-12.4) fL Immature Gran % (Auto) 0.3 % Neut % (Auto) 80.1 % Lymph % (Auto) 13.7 % Bee % (Auto) 4.8 % Eos % (Auto) 0.5 % Baso % (Auto) 0.6 % Neut # (Auto) 8.27 H (1.40-6.50) K/uL Lymph # (Auto) 1.42 (1.20-3.40) K/uL Bee # (Auto) 0.50 (0.11-0.59) K/uL Eos # (Auto) 0.05 (0.00-0.50) K/uL Baso # (Auto) 0.06 (0.00-0.20) K/uL Immature Gran # (Auto) 0.03 (0.01-0.20) K/uL Sodium 138 (136-145) mmol/L Potassium 3.6 (3.5-5.1) mmol/L Chloride 104 (98-107) mmol/L Carbon Dioxide 26 (21-32) mmol/L Anion Gap 8 (3-11) BUN 9 (6-23) mg/dl Creatinine 0.64 (0.6-1.2) mg/dl Est Cr Clr Drug Dosing 77.8 ml/min eGFR 97.41 BUN/Creatinine Ratio 14.1 (10-20) Glucose 101 H (70-99(Fasting)) mg/dl Calcium 9.5 (8.6-10.3) mg/dl Total Bilirubin 0.7 (0.2-1.0) mg/dl AST 16 (13-39) U/L ALT 13 (7-52) U/L Alkaline Phosphatase 55 (34-104) U/L Total Protein 7.8 (6.0-8.3) gm/dl Albumin 4.1 (3.4-5.0) gm/dl Globulin 3.7 (2.5-4.0) gm/dl Albumin/Globulin Ratio 1.1 (0.9-2) Lipase 8 L (11-82) U/L Urine Color Yellow Urine Appearance Clear (Clear) Urine pH 8.0 H (4.5-7.5) Ur Specific Hamilton 1.004 (1.000-1.030) Urine Protein Negative (Negative) Urine Glucose (UA) Negative (Negative) Urine Ketones Negative (Negative) Urine Blood Negative (Negative) Urine Nitrite Negative (Negative) Urine Bilirubin Negative (Negative) Urine Urobilinogen Negative (Negative) Ur Leukocyte Esterase Negative (Negative) Urine Comment Administered Medications Fentanyl (Fentanyl 25 Mcg/Hr Tdsy) 1 patch TD Q3D@0900 [facility] Stop: 03/01/25 01:29 Last Admin: 02/15/25 02:22 Dose: 1 patch Documented By: SMN Discontinued Medications Al Hydrox/Mg Hydrox/Simethicone (Aluminum/Magnesium Susp 30 Ml Udc) 30 ml PO NOW STA Stop: 02/14/25 20:48 Last Admin: 02/14/25 21:03 Dose: 30 ml Documented By: REAGAN Diphenhydramine HCl (Diphenhydramine 50 Mg/Ml Vial) 50 mg IV NOW STA Stop: 02/14/25 22:51 Last Admin: 02/14/25 22:58 Dose: 50 mg Documented By: REAGAN Droperidol (Droperidol 5 Mg/2 Ml Vial) 1.25 mg IV ONE STA Stop: 02/14/25 22:21 Last Admin: 02/14/25 22:27 Dose: 1.25 mg Documented By: REAGAN Fentanyl Citrate (Fentanyl Citrate Pf 100 Mcg/2 Ml Vial) 50 mcg IV NOW ONE Stop: 02/14/25 17:48 Last Admin: 02/14/25 17:56 Dose: 50 mcg Documented By: HOUSTON Parenteral Electrolytes (Plasma-Lyte A Ph 7.4) 1,000 mls @ 999 mls/hr IV .Q1H1M ONE Stop: 02/14/25 18:47 Last Infusion: 02/14/25 19:38 Dose: Infused Documented By: Admin: 02/14/25 17:56 Dose: 999 mls/hr Documented By: HOU[place]ON Pantoprazole Sodium (Protonix) 40 mg in 10 mls @ 5 mls/min IV NOW ONE Stop: 02/14/25 20:48 Last Admin: 02/14/25 21:03 Dose: 5 mls/min Documented By: REAGAN Prochlorperazine 10 mg/ (Syringe) 10 mls @ 5 mls/min IV ONE ONE Stop: 02/15/25 01:01 Last Admin: 02/15/25 01:51 Dose: 5 mls/min Documented By: REAGAN Ioversol (Optiray 320 100ml) 90 ml IV ONCE ONE Stop: 02/14/25 19:19 Last Admin: 02/14/25 19:19 Dose: 90 ml Documented By: JAIR Morphine Sulfate (Morphine Sulfate 4 Mg/Ml 1 Ml Carp\Vial) 4 mg IV NOW STA Stop: 02/14/25 20:08 Last Admin: 02/14/25 20:12 Dose: 4 mg Documented By: REAGAN Ondansetron HCl (Ondansetron Inj 2 Mg/Ml 2 Ml Vial) 4 mg IV NOW STA Stop: 02/14/25 17:48 Last Admin: 02/14/25 17:55 Dose: 4 mg Documented By: HOU[place]ON Sucralfate (Sucralfate 1 Gm Tab) 1 gm PO NOW STA Stop: 02/14/25 20:48 Last Admin: 02/14/25 21:03 Dose: 1 gm Documented By: REAGAN Imaging Data Radiologist's Impression: Abdomen/Pelvis CT 02/14/25 17:47 CT of the abdomen pelvis with contrast Technique: Postcontrast axial images of the abdomen pelvis. Coronal and sagittal reformatted images made available for review Comparison made to prior exam dated 01/24/2025 Findings: Lung bases are clear Postoperative changes prior cholecystectomy. Mild intra and extrahepatic biliary ductal dilatation which is as expected given patient's postoperative state. Remaining solid abdominal organs are all normal unremarkable in appearance. Vascular structures are unremarkable. No free air or intestinal obstruction. A few scattered colonic diverticuli. Urinary bladder is nondistended and as a result suboptimally evaluated. Grossly appears unremarkable. Uterus is surgically absent. Bone windows demonstrate no focal abnormality. Impression: CT of the abdomen pelvis negative for acute intra-abdominal pathology Stable chronic changes as described above. Electronically signed by David Torres 02-14-2025 8:01 PM Chest X-Ray 02/14/25 18:00 Chest radiograph, one view History: Chest pain Comparison: 12/26/2024 Findings: Single AP view of the chest performed. No focal consolidation or pleural effusion. No pneumothorax. The cardiomediastinal silhouette is within normal limits. Normal pulmonary vascularity. No evidence for lymphadenopathy. No visualized bony or soft tissue abnormality. Impression: Normal chest radiograph Electronically signed by Jhon Sarabia 02-14-2025 6:31 PM Discharge Plan Visit Data Chief Complaint: Urinary Symptoms Stated Complaint: BURN W/ URINE, CHILLS, NAUSEA SINCE YESTERDAY ED Provider: Otriz Stubbs Discharge Problem: Intractable abdominal pain, Chronic pain syndrome, Chronic anemia Patient Disposition: Admitted As Inpatient Condition: Fair Discharge Instructions Interventions: ED Discharge Assessment Last Done: 02/15/25 01:45
[2025-02-14 17:32] LABS: Alanine Aminotransferase 13.0 U/L (7-52); Albumin Globulin Ratio 1.1 (0.9-2); Albumin Level 4.1 gm/dl (3.4-5.0); Alkaline Phosphatase 55.0 U/L (34-104); Anion Gap 8.0 (3-11); Bilirubin,Total 0.7 mg/dl (0.2-1.0); Blood Urea Nitrogen 9.0 mg/dl (6-23); Calcium 9.5 mg/dl (8.6-10.3); Carbon Dioxide 26.0 mmol/L (21-32); Chloride 104.0 mmol/L (98-107); Creatinine Clr Calc Pharmacy 77.8 ml/min; Globulin 3.7 gm/dl (2.5-4.0); Glucose 101.0 mg/dl (70-99(Fasting)); Lipase 8.0 U/L (11-82); Potassium 3.6 mmol/L (3.5-5.1); Sodium 138.0 mmol/L (136-145); Total Protein 7.8 gm/dl (6.0-8.3)
[2025-02-14] MEDS: ONDANSETRON INJ 2 MG/ML 2 ML VIAL IV STA (17:55)
[2025-02-14] MEDS: PLASMA-LYTE A 1,000 ML IV ONE (17:56)
--- NOTE | 2025-02-14 18:31 | XRay Report ---
Chest radiograph, one view History: Chest pain Comparison: 12/26/2024 Findings: Single AP view of the chest performed. No focal consolidation or pleural effusion. No pneumothorax. The cardiomediastinal silhouette is within normal limits. Normal pulmonary vascularity. No evidence for lymphadenopathy. No visualized bony or soft tissue abnormality. Impression: Normal chest radiograph Electronically signed by Jhon Sarabia 02-14-2025 6:31 PM
[2025-02-14] MEDS: OPTIRAY 320 100ml IV ONE (19:19)
--- NOTE | 2025-02-14 20:02 | CT Scan Report ---
CT of the abdomen pelvis with contrast Technique: Postcontrast axial images of the abdomen pelvis. Coronal and sagittal reformatted images made available for review Comparison made to prior exam dated 01/24/2025 Findings: Lung bases are clear Postoperative changes prior cholecystectomy. Mild intra and extrahepatic biliary ductal dilatation which is as expected given patient's postoperative state. Remaining solid abdominal organs are all normal unremarkable in appearance. Vascular structures are unremarkable. No free air or intestinal obstruction. A few scattered colonic diverticuli. Urinary bladder is nondistended and as a result suboptimally evaluated. Grossly appears unremarkable. Uterus is surgically absent. Bone windows demonstrate no focal abnormality. Impression: CT of the abdomen pelvis negative for acute intra-abdominal pathology Stable chronic changes as described above. Electronically signed by David Torres 02-14-2025 8:01 PM
[2025-02-14] MEDS: MoRPHine SULFATE 4 MG/ML 1 ML CARP\\VIAL IV STA (20:12)
[2025-02-14] MEDS: ALUMINUM/MAGNESIUM SUSP 30 ML UDC PO STA (21:03)
[2025-02-14] MEDS: SUCRALFATE 1 GM TAB PO STA (21:03)
[2025-02-14] MEDS: PANTOprazole 40 MG/10 ML SYR IV ONE (21:03)
[2025-02-14] MEDS: DROPERIDOL 5 MG/2 ML VIAL IV STA (22:27)
[2025-02-14] MEDS: diphenhydrAMINE 50 MG/ML VIAL IV STA (22:58)
--- NOTE | 2025-02-15 01:29 | History & Physical Report ---
Date of Service February 15, 2025 Assessment & Plan (1) Acute exacerbation of chronic abdominal pain: (2) Palpitations: (3) Essential hypertension: (4) Anxiety and depression: Plan 64 yo female PMHx chronic abdominal pain, hypothyroidism, fibromyalgia, anxiety/depression, H. pylori, diverticulosis, IBS-D, admitted with acute on chronic abdominal pain present for the last 1-2 days. #Acute on Chronic Abdominal Pain Has had extensive workup locally and at tertiary care without obvious etiology Functional abdominal pain certainly seems most likely ?Acute Intermittent Porphyria Does not appear she has been worked up for this in the past Urine porphobilinogen and plasma porphyrin fractionation ordered Will defer any further imaging at this time Can consider GI consult - not placed at time of admission Will continue fentanyl patch, Protonix, Carafate as this seemed to ease her symptoms at the time of last admission Zofran vs. Compazine for recurrent nausea #HTN/Palpitations Continue propranolol at bedtime #Hypothyroidism Continue levothyroxine #Mental Health Is not on maintenance medication PRN Xanax on PDMP History of Present Illness Primary Care Provider: La Nena Garrett MD 64 yo female PMHx chronic abdominal pain, hypothyroidism, fibromyalgia, an xiety/depression, H. pylori, diverticulosis, IBS-D, admitted with acute on chronic abdominal pain present for the last 1-2 days. Patient was recently admitted for the same. Pain subsided and was discharged on 25mcg fentanyl patch, Carafate, and Protonix. She removed her last fentanyl patch on 02/13 and pain began to return. Described as localized predominantly to the epigastrium, pressure in the b/l lower quadrants though overall it is very generalized. Thinks it may be exacerbated by food but unclear exactly what triggers her "flairs". Pain has been present for ~30 years on and off. Thinks th is may have been precipitated by her first bout with H. pylori. She has undergone extensive workup including many imaging studies, endoscopy, colonoscopy, evaluation by vascular surgery, urologic studies, gynecological evaluation. She has also been evaluated at tertiary care including most recently [facility] in December of this year. According to the dischargee summary she is to see neuro-gastroenterology this month. She has been trialed on many different medications without long-standing improvement At the time of admission, the patient is uncomfortable appearing, reports nausea and abdominal pain. ED Course: Labs and imaging reviewed and unremarkable Recieved: Maalox, Benadryl, droperidol, fentanyl, morphine, Zofran, and Protonix without relief Allergies Allergy/AdvReac Type Severity Reaction Status Date / Time bacitracin Allergy Intermediate Hives Verified 02/14/25 19:54 [From Neosporin ([id number])] famotidine Allergy Intermediate Hives Verified 02/14/25 19:54 neomycin Allergy Intermediate Hives Verified 02/14/25 19:54 [From Neosporin ([id number])] polymyxin B Allergy Intermediate Hives Verified 02/14/25 19:54 [From Neosporin ([id number])] amoxicillin [From Augmentin] AdvReac Intermediate Caused C. Verified 02/14/25 19:54 diff clavulanic acid AdvReac Intermediate Caused C. Verified 02/14/25 19:54 [From Augmentin] diff lactose AdvReac Intermediate Gastrointestinal Verified 02/14/25 19:54 Upset olmesartan AdvReac Intermediate Diarrhea Verified 02/14/25 19:54 vilanterol AdvReac Intermediate Swelling Verified 02/14/25 19:54 [From Breo Ellipta] of legs/feet and GI Upset levofloxacin AdvReac Unknown tendinopathy Verified 02/14/25 19:54 - undetermined if med was cause. Home Medications Medication Instructions Recorded Confirmed Type albuterol sulfate 90 mcg/actuation 2 puff inhalation Q4H PRN 05/19/22 02/14/25 Rx aerosol inhaler (Ventolin HFA) Shortness Of Breath Or Wheezing #18 grams levothyroxine 88 mcg tablet 88 mcg PO QAM 02/13/23 02/14/25 History budesonide-formoterol HFA 80 2 inh inhalation BID #30.59 grams 05/07/23 02/14/25 Rx mcg-4.5 mcg/actuation aerosol inhaler (Symbicort) cyclosporine 0.09 % eye drops in a 1 drp OPB BID 08/22/23 02/14/25 History dropperette (Cequa) propranolol 60 mg capsule,24 60 mg PO HS 10/15/24 02/14/25 History hr,extended release pantoprazole 40 mg tablet,delayed 40 mg PO BID #60 tabs 10/20/24 02/14/25 Rx release estradiol 0.01% (0.1 mg/gram) 1 g vaginal 3XWK #42.5 grams 01/05/25 02/14/25 Rx vaginal cream fentanyl 25 mcg/hr transdermal 1 patch transdermal Q3D #5 ea 01/26/25 02/14/25 Rx patch sucralfate 1 gram tablet 1 g PO QID #90 tabs 01/26/25 02/14/25 Rx Past Med/Surg History Problem List (Updated 02/15/25 @ 03:05 by Ortiz Stubbs, DO) Chronic anemia (Acute) Chronic pain syndrome (Acute) Intractable abdominal pain (Acute) Acute exacerbation of chronic abdominal pain Chronic abdominal pain Leiomyoma Constipation Generalized abdominal pain (Acute) Enterocolitis Anemia Abnormal computerized axial tomography of liver (Acute) Vulvar burning Chronic nausea Drug allergy Atrophic vaginitis Right kidney mass Recurrent UTI Depression Abnormal findings on imaging of biliary tract Abdominal pain (Acute) Bilateral kidney stones Epigastric pain Hip tendinitis Calcium kidney stone Hamstring tendinitis Arthritis of hip Hx of diverticulitis of colon Greater trochanteric pain syndrome Palpitations Chronic venous insufficiency Pain of right sacroiliac joint Helicobacter pylori infection C. difficile colitis Allergic rhinitis (Chronic) Idiopathic urticaria (Acute) Chronic sinusitis (Chronic) Impaired fasting glucose (Chronic) Medical History Urinary tract infection abx completed 06/28 or 06/30/23 - feeling better, all symptoms gone except some pressure. Pre op edu rev. Diverticulosis hx Gastritis History of gastric polyp History of colon polyps Vertigo none for over a month Kidney stones current Renal mass [place] [facility] aware, monitoring Paresthesia of upper extremity sometimes arms Diarrhea current : on occ /finished abx recently. History of Helicobacter pylori infection Hx of Clostridium difficile infection Remote hx approximately 30 years ago History of COVID-19 03/19/2023 ([place], [place]) > resolved 11/2021- fatigue, congestion, cough, sore throat > resolved pt reports has had a total of 3 times : 1st time in 2019 ? Hx of melanoma of skin Pulmonary embolism Remote hx approximately 30 years ago, after SUMAN (blood thinners x 3 months) Acute diverticulitis listed in differential diagnosis 04/14/23 by hospitalist, not included on discharge summary Sciatica hx COPD (chronic obstructive pulmonary disease) well controlled per pt, rare res inh use Mild reactive airways disease Depression with anxiety Esophageal reflux Fibromyalgia Hypertension Irritable bowel syndrome Hypothyroidism Hyperlipidemia History of asthma Surgical History History of lithotripsy History of cystoscopy Hx of vascular surgery Dr Morales [facility] 07/2022 Distal LT GSV accessed under ultrasound guidance with placement of 4Fr sheath History of esophagogastroduodenoscopy (EGD) Hx of cataract extraction Hx of melanoma excision stomach S/P dilation and curettage History of cryosurgery History of colonoscopy (10/12/19) 4 polyps removed, [facility], Dr. Roque S/P tonsillectomy S/P sinus surgery S/P SUAMN-BSO S/P laparoscopic cholecystectomy S/P appendectomy Family History Mother Diabetes Father Heart disease Other Asthma Cancer Gallbladder disease Hypertension Stroke Denies family history of Ovarian cancer Myocardial infarction Breast cancer Colorectal cancer Colonic polyp Uterine cancer Social History Smoking Status: Former smoker Tobacco Type: Cigarettes Age Started Using Tobacco: 18; Age Quit Using Tobacco: 58; Second Hand Exposure: No; Do You Dip or Chew Tobacco: No; Tobacco Cessation Education Requested by Patient: No Hx Alcohol Use: No Hx Substance Use: No Preferred Language: Haitian Communication Ability: Effective Visual Impairment: No Limitations Hearing Ability: Normal Manager Heavy Equipment Required: No Beliefs That Will Affect Care: None marital status: Current Living Situation: Spouse Current Living Situation Comment: [facility] current occupational status: disabled Other Information That Helps Us Care for You: No Feels Safe at Home: Yes Safety Concerns: Feels Safe At This Time Childhood Exposure to Second-Hand Smoke: Yes Dental Care, Regularly: Yes Seatbelt Use: always Sunscreen Use: Yes Do you think of yourself as: straight/heterosexual Sexual Activity: has been sexually active within the last 12 months Review of Systems Review of Systems: reviewed, per HPI Physical Exam Physical Exam: Constitutional: chronically ill-appearing, in obvious dyscomfort HEENT: NCAT, no conjunctival injection CV: regular rhythm, no murmur appreciated, extremities well-perfused, no LE edema Resp: CTABL, no wheezes/rales/rhonchi appreciated, no increased work of breathing GI: soft, nondistended, pain out of proportion on palpation in all quadrants MSK: no gross deformities appreciated Skin: warm, dry, no rash appreciated Neuro: alert, oriented, no focal neurologic deficit appreciated Results & Data Results & Data Vital Signs (Past 12 Hours) Vital Signs Temp Pulse Pulse Resp BP BP Pulse Ox 02/15/25 00:15 67 12 175/86 H 93 02/14/25 22:06 74 14 146/74 H 95 02/14/25 20:30 81 16 149/86 H 96 02/14/25 20:12 90 02/14/25 19:00 82 19 160/91 H 95 02/14/25 17:57 87 19 168/101 H 97 02/14/25 17:15 82 19 174/99 H 97 02/14/25 16:39 36.8 C 85 18 162/87 H 98 O2 Del Method 02/15/25 00:15 02/14/25 22:06 02/14/25 20:30 02/14/25 20:12 02/14/25 19:00 Room Air 02/14/25 17:57 Room Air 02/14/25 17:15 02/14/25 16:39 Room Air Code Status & VTE Plan VTE Prophylaxis Plan VTE Prophylaxis will be ordered: Yes Supervising Physician Co-Signing Physician Notes Attending addendum: I have physically seen this patient, have supervised the medical residents activities, and agree with the H&P unless as otherwise noted. Assessment and Plan: The patient is a 64-year-old female with past medical history including chronic abdominal pain, hypothyroidism, fibromyalgia, anxiety/depression, H. pylori, diverticulosis, and IBS-D. She presents to the emergency department with an acute worsening of her chronic abdominal pain for the past 1 to 2 days. Acute on chronic abdominal pain- Extensive workup reviewed with CTs and MRIs CT of abdomen pelvis this evening shows no acute findings Worsening of pain now is likely due to running out of her fentanyl patch, which was added at last admission of 01/24-01/26/2025. Workup for AIP as noted Resuming fentanyl patch which she ran out of. Continue Protonix, and Carafate Zofran and Compazine for nausea as needed Hypertension/palpitations- Continue propranolol at bedtime Hypothyroidism- Continue levothyroxine Mental health- Xanax as noted as needed Resident Activity Tracking Resident Involvement: Resident Care Provided Care Provided: Adult Hospital Medicine
[2025-02-15] MEDS: PROCHLORPERAZINE 10 MG in SYRINGE 8 ML IV ONE (01:51)
[2025-02-15] MEDS ORDERED: ALUMINUM/MAGNESIUM SUSP 30 ML UDC PO PRN (02:07)
[2025-02-15] MEDS ORDERED: MAGNESIUM HYDROXIDE SUSP 30 ML UDC PO PRN (02:07)
[2025-02-15] MEDS ORDERED: ALBUTEROL HFA 8 GM INHALER INH PRN (02:07)
[2025-02-15] MEDS ORDERED: ARTIFICIAL TEARS OP PRN (02:16)
--- NOTE | 2025-02-15 05:13 | Billing Data ---
Date of Service February 15, 2025 Coding Level of Care Code 57083 INT INP/OBS CARE
[2025-02-15] MEDS: LEVOTHYROXINE SODIUM 88 MCG TABLET PO SCH (05:45)
[2025-02-15 07:34] VITALS: RESP 20
[2025-02-15] MEDS: ONDANSETRON INJ 2 MG/ML 2 ML VIAL IV PRN (08:08)
[2025-02-15] MEDS: ENOXAPARIN INJ 40 MG/0.4 ML SYR SQ SCH (08:08)
[2025-02-15] MEDS: SUCRALFATE 1 GM TAB PO SCH (08:10)
[2025-02-15] MEDS: ACETAMINOPHEN 325 MG TAB PO PRN (08:10)
[2025-02-15] MEDS: GABAPENTIN 100 MG CAP PO SCH (11:01)
[2025-02-15] MEDS: POLYETHYLENE (MIRALAX) 17 GM PACK PO PRN (17:55)
[2025-02-15] MEDS: PROPRANOLOL HCL 60 MG LA CAP PO SCH (20:04)
[2025-02-15] MEDS: BUDESONIDE/FORMOTEROL FUMARATE 80/4.5 60 PUFFS/INHALER INH SCH (20:04)
[2025-02-15] MEDS: MELATONIN 3 MG TAB PO PRN (20:53)
--- NOTE | 2025-02-15 21:55 | Hospitalist Progress Note ---
Date of Service February 15, 2025 Assessment & Plan (1) Acute exacerbation of chronic abdominal pain: Plan: Etiology of acute abdominal pain remains unclear, and is unlikely to be due to any of the acute porphyrias, but such workup for acute porphyrias is pending, nonetheless. Etiology of chronic abdominal pain remains unclear, but is probably related to patient's fibromyalgia. Irrespective of etiology of acute/chronic abdominal pain, two things remain clear: 1. Patient depends physiologically and psychiatrically on her home-scheduled gabapentin 100mg PO bid and her home-scheduled wellbutrin 150mg PO bid, and hence, I restarted patient on both home-scheduled medications on 02/15/2025, and with positive results reported by the patient. 2. Patient reports relief in acute abdominal pain after starting dilaudid 4mg PO q3h while awake on 02/15/2025, and hence, patient will continue dilaudid 4mg PO q3h while awake on hospital discharge home on 02/16/2025. (2) Palpitations: (3) Essential hypertension: (4) Anxiety and depression: Plan 64 yo female PMHx chronic abdominal pain, hypothyroidism, fibromyalgia, anxiety/depression, H. pylori, diverticulosis, IBS-D, admitted with acute on chronic abdominal pain present for the last 1-2 days. #Acute on Chronic Abdominal Pain Has had extensive workup locally and at tertiary care without obvious etiology Functional abdominal pain certainly seems most likely ?Acute Intermittent Porphyria Does not appear she has been worked up for this in the past Urine porphobilinogen and plasma porphyrin fractionation ordered Will defer any further imaging at this time Can consider GI consult - not placed at time of admission Will continue fentanyl patch, Protonix, Carafate as this seemed to ease her symptoms at the time of last admission Zofran vs. Compazine for recurrent nausea #HTN/Palpitations Continue propranolol at bedtime #Hypothyroidism Continue levothyroxine #Mental Health Is not on maintenance medication PRN Xanax on PDMP Admission and Anticipated Discharge Date Admission Date: February 15, 2025 Subjective "I'm feeling a lot better after you started me back on my gabapentin 100mg PO bid and my wellbutrin 150mg PO bid today (02/15/2025); the other doctor stopped those two meds cold turkey two weeks ago, thinking that maybe these two meds were causing my belly pain, but Doc, I have been on gabapentin 100mg PO bid and wellbutrin 150mg PO bid for years and years and years, so I don't see how those two meds could have caused my belly pain, and now, I believe that my body went into withdrawal from being taken off those two meds cold turkey two weeks ago. Also, thank you for the dilaudid pill, Doc; it works better than the fentanyl patch. Maybe I can go home tomorrow, right, Doc?" Review of Systems Constitutional: Negative for antecedent/coincident fevers, chills, diaphoresis, cough, wheeze, sore throat, hemoptysis, chest pains, palpitations, pleurisy, nausea, vomiting, diarrhea, abdominal pain, pelvic pain, hematemesis, hematochezia, melena, hematuria, dysuria, frequency, urgency, headaches, dizziness, lightheadedness, visual changes, hearing changes, weakness, falls, syncope, trauma, travel history, sick contacts, or food/drug ingestions novel or new. All other review of systems are reported as negative by the patient on 02/15/2025. Physical Exam Constitutional: General: Comfortable, cooperative and coherent. Wide awake and alert. Not confused, lethargic, or obtunded. Patient speaks in complete, fluent, and articulate sentences, without pause, interruption, cough, or wheeze. HEENT: NC/AT. EOMI. PERRL. No diplopia, homonymous hemianopsia, superior/inferior/nasal/temporal quadrantanopia, nystagmus, gaze paresis, anisocoria, miosis, mydriasis, chemosis, hyphema, scleral injection, conjunctivitis, pterygium, facial droop, dysarthria, or pronator drift. No otorrhea. No rhinorrhea. Neck: Supple, no stridor, bruit, or goiter. Jugular venous pressure 3 cm above the sternal angle of José, which is typically 5 cm above the right atrium. Lymph: No anterior/posterior cervical lymphadenopathy, supraclavicular/infraclavicular lymphadenopathy, axilla/epitrochlear/inguinal lymphadenopathy. Chest: Symmetric rise and fall with respirations. Non-tender to palpation. Heart: RRR, S1 and S2. No S3 or S4 summation gallop. No tripartite friction rub. No murmur. Lungs: Clear to auscultation and percussion. No audible expiratory wheeze, egophony, pectoriloquy, increase in tactile fremitus, or flatness/dullness to percussion at the bases. Abd: Soft, non-tender, non-distended. Bowel sounds auscultated in all 4 quadrants. No rebound, guarding, Miller's sign, or organomegaly. Ext: No clubbing, cyanosis, or edema. Left mid dallas is larger than right mid dallas circumferentially by 2 cm. Non-tender to palpation bilaterally; no posterior cord palpable. 2+ pedal pulses bilaterally. Skin: No decubitus ulcer or enanthem or exanthem. Neuro: Alert and oriented in regards to person, place, time, and situation. No tremors, tics, or myoclonus. DTR+. 5/5 motor strength in all 4 extremities, both proximally and distally. No spinal tenderness. No paraspinal tenderness. Straight leg raise negative bilaterally. Urology: No moreira catheter. No purewick. No urethral discharge. Results & Data Results & Data Vital Signs (Past 12 Hours) Vital Signs Temp Pulse Resp BP BP Pulse Ox O2 Del Method 02/15/25 20:02 88 138/78 02/15/25 15:52 36.7 C 72 20 133/73 97 Room Air PG Care Time/CCT Total # of Minutes Spent Total Time Spent with Patient: Total time spent is greater than 50% in coordination of care (as documented) at patient's floor/unit and/or counseling patient: Coding Level of Care Code 00653 SUB INP/OBS CARE 2/35MIN Diagnoses Acute exacerbation of chronic abdominal pain R10.9; G89.29 Palpitations R00.2 Essential hypertension I10 Anxiety and depression F41.9; F32.A
[2025-02-16 06:36] LABS: Hematocrit (blood only) 30.6 % (37.0-47.0); Hemoglobin 9.6 g/dl (12.0-16.0); Immature Granulocytes # (auto) 0.02 K/uL (0.01-0.20); Immature Granulocytes % (auto) 0.4 %; Mean Corpuscular Hemoglobin 26.4 pg (25.0-34.0); Mean Corpuscular Volume 84.1 fL (80.0-100.0); Platelet Count 250 K/uL (130-400); RDW Standard Deviation 43.2 fL (36.4-46.3); Red Blood Count 3.64 M/uL (4.20-5.40); White Blood Count 5.49 K/ul (4.8-10.8)
[2025-02-16 07:07] LABS: Alanine Aminotransferase 9.0 U/L (7-52); Albumin Globulin Ratio 1.1 (0.9-2); Albumin Level 3.3 gm/dl (3.4-5.0); Alkaline Phosphatase 41.0 U/L (34-104); Anion Gap 4.0 (3-11); Bilirubin,Total 0.5 mg/dl (0.2-1.0); Blood Urea Nitrogen 8.0 mg/dl (6-23); Calcium 9.0 mg/dl (8.6-10.3); Carbon Dioxide 32.0 mmol/L (21-32); Chloride 104.0 mmol/L (98-107); Creatinine Clr Calc Pharmacy 74.3 ml/min; Globulin 2.9 gm/dl (2.5-4.0); Glucose 91.0 mg/dl (70-99(Fasting)); Potassium 3.8 mmol/L (3.5-5.1); Sodium 140.0 mmol/L (136-145); Total Protein 6.2 gm/dl (6.0-8.3)
[2025-02-16 07:40] VITALS: PULSE 62; TEMP 98.4; O2SAT 96
[2025-02-16] MEDS: LORazepam Inj 2 MG in SYRINGE 1 ML IV STA (13:16)
--- NOTE | 2025-02-16 16:20 | Discharge Summary ---
Discharge Summary Date of Service February 16, 2025 Principal Dx & Hospital Course #1 = Principal Diagnosis (1) Acute exacerbation of chronic abdominal pain: Etiology of acute abdominal pain remains unclear, and is unlikely to be due to any of the acute porphyrias, but such workup (cf., 02/15/2025, 1:40am: plasma protoporphyrins, plasma total porphyrins, plasma uroporphyrins, heptacaboxylporphyrins, hexacarboxylporphyrins, pentacarboxylporphyrins, plasma coproporphyrins) for acute porphyrias is pending, nonetheless, and may be followed up with her PCP Dr. La Nena Garrett, within 5-7 days of hospital discharge. In addition, patient underwent CTA abd/pelvis with IV contrast (02/16/2025. 3:56pm) to rule out acute/chronic mesenteric ischemia as an underlying etiology for her acute/chronic abdominal pains, and was negative for acute/chronic mesenteric ischemia, bowel wall thickening, obstruction, or pericolonic inflammatory change, and instead, was positive for large amounts of stool present throughout the ascending and transverse colon, and which is probably due to chronic narcotic administration, which slows down bowel motility. cf., Etiology of chronic abdominal pain remains unclear, but is probably related to patient's fibromyalgia. Irrespective of etiology of acute/chronic abdominal pain, two things remain clear: 1. Patient depends physiologically and psychiatrically on her home-scheduled gabapentin 100mg PO bid and her home-scheduled wellbutrin 150mg PO bid, and hence, I restarted patient on both home-scheduled medications on 02/15/2025, and with positive results reported by the patient. Hence, patient will continue both home-scheduled gabapentin 100mg PO bid and her home-scheduled wellbutrin 150mg PO bid on hospital discharge back to her home on 02/16/2025. 2. Patient reports relief in acute abdominal pain after starting dilaudid 4mg PO q3h while awake on 02/15/2025, and hence, patient will continue dilaudid 4mg PO q3h while awake on hospital discharge home on 02/16/2025. To this end, [id number], [address] [place] [address], [place] [address], received an electronic prescription for dilaudid 4mg PO q3h while awake, #30 tablets, each tablet 2mg, no refills, on 02/16/2025, prior to hospital discharge home on 02/16/2025. (2) Palpitations: (3) Essential hypertension: (4) Anxiety and depression: Plan 64 yo female PMHx chronic abdominal pain, hypothyroidism, fibromyalgia, anxiety/depression, H. pylori, diverticulosis, IBS-D, admitted with acute on chronic abdominal pain present for the last 1-2 days. #Acute on Chronic Abdominal Pain Has had extensive workup locally and at tertiary care without obvious etiology Functional abdominal pain certainly seems most likely ?Acute Intermittent Porphyria Does not appear she has been worked up for this in the past Urine porphobilinogen and plasma porphyrin fractionation ordered Will defer any further imaging at this time Can consider GI consult - not placed at time of admission Will continue fentanyl patch, Protonix, Carafate as this seemed to ease her symptoms at the time of last admission Zofran vs. Compazine for recurrent nausea #HTN/Palpitations Continue propranolol at bedtime #Hypothyroidism Continue levothyroxine #Mental Health Is not on maintenance medication PRN Xanax on PDMP Admission HPI Per Admitting Provider 64 yo female PMHx chronic abdominal pain, hypothyroidism, fibromyalgia, anxiety/depression, H. pylori, diverticulosis, IBS-D, admitted with acute on chronic abdominal pain present for the last 1-2 days. Patient was recently admitted for the same. Pain subsided and was discharged on 25mcg fentanyl patch, Carafate, and Protonix. She removed her last fentanyl patch on 02/13 and pain began to return. Described as localized predominantly to the epigastrium, pressure in the b/l lower quadrants though overall it is very generalized. Thinks it may be exacerbated by food but unclear exactly what triggers her "flairs". Pain has been present for ~30 years on and off. Thinks this may have been precipitated by her first bout with H. pylori. She has undergone extensive workup including many imaging studies, endoscopy, colonoscopy, evaluation by vascular surgery, urologic studies, gynecological evaluation. She has also been evaluated at tertiary care including most recently [facility] in December of this year. According to the dischargee summary she is to see neuro-gastroenterology this month. She has been trialed on many different medications without long-standing improvement At the time of admission, the patient is uncomfortable appearing, reports nausea and abdominal pain. ED Course: Labs and imaging reviewed and unremarkable Recieved: Maalox, Benadryl, droperidol, fentanyl, morphine, Zofran, and Protonix without relief Discharge Exam Constitutional General: Comfortable, cooperative and coherent. Wide awake and alert. Not confused, lethargic, or obtunded. Patient speaks in complete, fluent, and articulate sentences, without pause, interruption, cough, or wheeze. HEENT: NC/AT. EOMI. PERRL. No diplopia, homonymous hemianopsia, superior/inferior/nasal/temporal quadrantanopia, nystagmus, gaze paresis, anisocoria, miosis, mydriasis, chemosis, hyphema, scleral injection, conjunctivitis, pterygium, facial droop, dysarthria, or pronator drift. No ot orrhea. No rhinorrhea. Neck: Supple, no stridor, bruit, or goiter. Jugular venous pressure 3 cm above the sternal angle of José, which is typically 5 cm above the right atrium. Lymph: No anterior/posterior cervical lymphadenopathy, supraclavicular/infraclavicular lymphadenopathy, axilla/epitrochlear/inguinal lymphadenopathy. Chest: Symmetric rise and fall with respirations. Non-tender to palpation. Heart: RRR, S1 and S2. No S3 or S4 summation gallop. No tripartite friction rub. No murmur. Lungs: Clear to auscultation and percussion. No audible expiratory wheeze, egophony, pectoriloquy, increase in tactile fremitus, or flatness/dullness to percussion at the bases. Abd: Soft, non-tender, non-distended. Bowel sounds auscultated in all 4 quadrants. No rebound, guarding, Miller's sign, or organomegaly. Ext: No clubbing, cyanosis, or edema. 2+ pedal pulses bilaterally. Skin: No decubitus ulcer or enanthem or exanthem. Neuro: Alert and oriented in regards to person, place, time, and situation. No tremors, tics, or myoclonus. DTR+. 5/5 motor strength in all 4 extremities, both proximally and distally. Urology: No moreira catheter. No purewick. No diaper. No urethral discharge. Discharge Plan Discharge Items Patient Disposition: Home - Self-Care Reason For Visit: ACUTE ON CHRONIC ABDOMINAL PAIN Discharge Diagnosis: Acute on chronic abdominal pain, of unclear etiology. Condition on Discharge: Fair Activity: Resume your previous activity Lifting: Gradually increase as tolerated Bathing: No limitations Sexual Activity: When tolerated Exercise/Sports: Gradually increase as tolerated Driving/Machine Use: No limitations Weightbearing: Full weightbearing Non-emergency contact: Primary Care Provider Call non-emergency contact if: you have any medication questions Follow-up/Referrals: La Nena Garrett MD [Primary Care Provider] - (Please call your primary care provider to schedule a hospital follow-up appointment within 7-10 days) Diet: Heart Healthy Addtl Attending Provider Instructions: See your PCP Dr. La Nena Garrett within 5-7 days of hospital discharge. Pending Studies at Discharge: Yes Studies:: acute porphyrias workup (cf., 02/15/2025, 1:40am: plasma protoporphyrins, plasma total porphyrins, plasma uroporphyrins, heptacaboxylporphyrins, hexacarboxylporphyrins, pentacarboxylporphyrins, plasma coproporphyrins) with all results pending as of discharge date/time 02/16/2025, 5:00pm, and may be followed up with PCP PCP Dr. La Nena Garrett, within 5-7 days of hospital discharge. Stand-Alone Forms: [employer], Smoking Cessation Medications and DC Order Prescriptions: New bupropion HCl 150 mg Tablet Sustained-Release 12 Hr 150 mg PO BID Qty: 60 0RF hydromorphone [Dilaudid] 2 mg Tablet 4 mg PO Q3RWA PRN (Reason: pain) Qty: 30 0RF gabapentin 100 mg Capsule 100 mg PO BID Qty: 60 0RF Continued albuterol sulfate [Ventolin HFA] 90 mcg/actuation HFA aerosol inhaler 2 puff inhalation Q4H PRN (Reason: Shortness Of Breath Or Wheezing) Qty: 18 5RF budesonide-formoterol [Symbicort] 80-4.5 mcg/actuation HFA aerosol inhaler 2 inh inhalation BID Qty: 30.59 3RF Hold Instructions: Gastritis Rx Instructions: INHALE 2 PUFFS INTO THE LUNGS TWICE A DAY estradiol 0.01 % (0.1 mg/gram) cream 1 g VAGINAL 3XWK Qty: 42.5 3RF Rx Instructions: Mon/Wed/Fri levothyroxine 88 mcg tablet 88 mcg PO QAM Cequa 0.09 % dropperette 1 drp OPB BID propranolol 60 mg capsule,extended release 24 hr 60 mg PO HS pantoprazole 40 mg Tablet,Delayed Release (Dr/Ec) 40 mg PO BID Qty: 60 0RF sucralfate 1 gram Tablet 1 g PO QID Qty: 90 0RF fentanyl 25 mcg/hr Patch 72 Hour 1 patch transdermal Q3D Qty: 5 0RF Rx Instructions: PER PT "REMOVED 02/13/25, DID REALIZE THAT I DID NOT HAVE A NEW ONE TO PUT ON". Discharge Orders: Discharge Order (Routine); Ordered 02/16/25 Ordered By: Jorge Alva Admission Data Admit Date/Time: 02/15/25 01:07 Attending Provider: Jorge Alva Admit Provider: Franklin Hernandez Primary Care Provider: La Nena Garrett Other Providers: Kodi Moran Other Interventions: Discharge Summary Assessment (RN) Last Done: 02/16/25 17:14 Hospital Stay Data Consultations 02/14/25 23:44 ED Decision to Admit Stat Diagnostic Imagining Performed 02/14/25 17:47 CT abd pelvis IV con only Stat 02/16/25 15:56 CT angio abdomen pelvis w con Stat Pending Results Patient Have Any Pending Studies at Discharge: No Discharge Instructions Given to Patient (Per Discharging Provider) See your PCP Dr. La Nena Garrett within 5-7 days of hospital discharge. Total Time Total Time Spent Total Time Spent (In Minutes): 35 minutes. Of this time period, 19 minutes were spent in coordinating patient's discharge. Coding Level of Care Code 88145 INP/OBS DISCH >30 MIN Diagnoses Acute exacerbation of chronic abdominal pain R10.9; G89.29 Palpitations R00.2 Essential hypertension I10 Anxiety and depression F41.9; F32.A
[2025-02-16 17:18] VITALS: BP 133/73
--- NOTE | 2025-02-16 19:41 | CT Scan Report ---
EXAMINATION: CT angio abdomen pelvis with contrast CLINICAL HISTORY: Acute/chronic abdominal pain, rule out mesenteric ischemia PRIORS: 02/14/2025, 01/24/2025 TECHNIQUE: Contiguous axial images were obtained through the abdomen and pelvis with the use of intravenous contrast. Sagittal and coronal reformations are supplied. FINDINGS: Lung bases unremarkable. The aorta is normal caliber throughout its course. Mild to moderate calcified atherosclerotic disease of the mid to distal abdominal aorta. Appropriate takeoff of the celiac trunk, SMA and DARRIN which opacify normally. Bilateral single renal arteries noted with no atherosclerotic disease. The SMA-aortic angle is approximately 29 degrees, with normal range 38 to 65 degrees. Mild gaseous distention of the proximal aorta is present with decompressed distal aorta, image 37, series 301. No bowel wall thickening or inflammatory change. The liver, pancreas, spleen, under distended stomach, adrenals, aorta, IVC are morphologically unremarkable allowing for arterial phase. Kidneys are bilaterally symmetric. No obstructing calculus. Distal abdominal aorta bifurcates normally. Large amount of formed stool present in the colon. Large amount of gas present in the sigmoid colon and rectum. No bowel obstruction. No ascites, adenopathy or extraluminal gas. IMPRESSION: 1. Decreased SMA-aortic angle of29 degrees, normal range 38-65 degrees,with mild gaseous distention of the proximal duodenum which can suggest Superior Mesenteric Artery Syndrome in the proper clinical setting. GI consultation suggested if appropriate. 2. No bowel wall thickening, obstruction or pericolonic inflammatory change. 3. Large amount of formed stool present throughout the ascending and transverse colon. ACT 112: Positive. There are findings on this examination that require communication between the performing entity and the patient following Patient Test Result Information Act ([place] ACT 112) guidelines. Electronically signed by Rowena Mccurdy 02-16-2025 7:41 PM
== END 2025-02-16 18:40 | disposition home or self-care (01) | DRG 642 ==
LOC: ED 16:09 → 2N 02-15 01:07 → SUATTDRO 02-15 01:07 → INTOOBSV 02-15 01:07 → 2N 02-15 01:45

== ENCOUNTER 2025-03-30 11:27 | Inpatient (IN) ==
--- NOTE | 2025-03-30 12:09 | Emergency Department Note ---
ED Provider Note History of Present Illness Chief Complaint: Abdominal Pain Stated Complaint: ABD PAIN, REF BY DOC, TOLD SHE HAS NOROVIRUS Time Seen by Provider: 03/30/25 11:42 64-year-old female who presents to the emergency department with her (who also provides history) for evaluation of upper abdominal pain, nausea and a positive norovirus test as ordered by her PCP few days ago. Patient has a history of chronic abdominal pain. The patient has had extensive workup at our facility, by her PCP as well as local gastroenterology. The patient reports that approximately 1 month ago, she was seen by [facility] gastroenterology in [place]. The patient reports that she was supposed to do a bowel purge, then start a medication for her gastroparesis. The patient reports that she did not get a chance to even start that as she contracted a COVID infection. The patient reports that she was sick for about 2 weeks, and her had to be admitted for COVID as well. The patient reports that she has had worsening abdominal discomfort for the past 2 days. She did take some Dilaudid last evening for the pain, however it did not really help. She also took Zofran around 7:15 AM this morning, and Tylenol around 8:00. The patient reports that she did not have any vomiting. When asked about any norovirus symptoms, the patient reports that she only had 1 day of diarrhea a week ago. The patient reports that she can no longer tolerate the pain or nausea, rating her discomfort a 10 out of 10. Home Medications Medication Instructions Recorded Confirmed Type levothyroxine 88 mcg tablet 88 mcg PO QAM 02/13/23 03/30/25 History budesonide-formoterol HFA 80 2 inh inhalation BID #30.59 grams 05/07/23 03/30/25 Rx mcg-4.5 mcg/actuation aerosol inhaler (Symbicort) cyclosporine 0.09 % eye drops in a 1 drp OPB BID 08/22/23 03/30/25 History dropperette (Cequa) propranolol 60 mg capsule,24 60 mg PO HS 10/15/24 03/30/25 History hr,extended release pantoprazole 40 mg tablet,delayed 40 mg PO BID #60 tabs 10/20/24 03/30/25 Rx release sucralfate 1 gram tablet 1 g PO QID #90 tabs 01/26/25 03/30/25 Rx bupropion HCl 150 mg tablet,12 hr 150 mg PO BID #60 ea 02/16/25 03/30/25 Rx sustained-release gabapentin 100 mg capsule 100 mg PO BID #60 caps 02/16/25 03/30/25 Rx hydromorphone 2 mg tablet 4 mg (2 x 2 mg) PO Q3RWA PRN pain 02/16/25 03/30/25 Rx (Dilaudid) #30 tabs pyridostigmine bromide 60 mg tablet 60 mg PO TID 03/01/25 03/30/25 History azelastine 137 mcg (0.1 %) nasal 1 spray intranasal BID PRN 03/05/25 03/30/25 History spray Congestion promethazine 25 mg tablet 25 - 50 mg (1 - 2 x 25 mg) PO Q6H 03/08/25 03/30/25 Rx PRN nausea and vomiting #20 tabs albuterol sulfate 90 mcg/actuation 1 inh inhalation Q4H PRN shortness 03/11/25 03/30/25 Rx aerosol inhaler of breath or wheezing #8.5 grams estradiol 0.01% (0.1 mg/gram) 1 g vaginal [id number] PRN NEEDED PER 03/24/25 03/30/25 History vaginal cream PT ondansetron 4 mg disintegrating 4 mg PO Q8H PRN nausea and 03/29/25 03/30/25 Rx tablet vomiting #20 tabs amoxicillin 500 mg capsule 500 mg PO TID 03/30/25 03/30/25 History Allergies Allergy/AdvReac Type Severity Reaction Status Date / Time bacitracin Allergy Intermediate Hives Verified 03/30/25 15:22 [From Neosporin ([id number])] famotidine Allergy Intermediate Hives Verified 03/30/25 15:22 neomycin Allergy Intermediate Hives Verified 03/30/25 15:22 [From Neosporin ([id number])] polymyxin B Allergy Intermediate Hives Verified 03/30/25 15:22 [From Neosporin ([id number])] lactose AdvReac Intermediate Gastrointestinal Verified 03/30/25 15:22 Upset olmesartan AdvReac Intermediate Diarrhea Verified 03/30/25 15:22 vilanterol AdvReac Intermediate Swelling Verified 12/18/25 15:22 [From Breo Ellipta] of legs/feet and GI Upset levofloxacin AdvReac Unknown tendinopathy Verified 03/30/25 15:22 - undetermined if med was cause. Past Med/Surg History Problem List (Updated 03/31/25 @ 06:34 by Ubaldo Chi MD) Vaginitis Enteritis due to Norovirus Gastroparesis (Acute) Nausea (Acute) Acute exacerbation of chronic abdominal pain (Acute) Diarrhea (Acute) Nausea (Acute) Abdominal pain (Acute) Hypokalemia (Acute) Abdominal pain, chronic, generalized (Acute) Back pain (Acute) Dysuria (Acute) Vaginal discharge (Acute) Vaginal pain (Acute) COVID-19 (Acute) COVID-19 (Acute) Chronic abdominal pain Leiomyoma Constipation Generalized abdominal pain (Acute) Enterocolitis Anemia Abnormal computerized axial tomography of liver (Acute) Vulvar burning Chronic nausea Drug allergy Atrophic vaginitis Right kidney mass Recurrent UTI Depression Abnormal findings on imaging of biliary tract Abdominal pain (Acute) Bilateral kidney stones Epigastric pain Hip tendinitis Calcium kidney stone Hamstring tendinitis Arthritis of hip Hx of diverticulitis of colon Greater trochanteric pain syndrome Palpitations Chronic venous insufficiency Pain of right sacroiliac joint Helicobacter pylori infection C. difficile colitis Allergic rhinitis (Chronic) Idiopathic urticaria (Acute) Chronic sinusitis (Chronic) Impaired fasting glucose (Chronic) Medical History Chronic anemia Chronic pain syndrome Intractable abdominal pain Acute exacerbation of chronic abdominal pain Anxiety and depression Primary hypothyroidism Essential hypertension Urinary tract infection abx completed 06/28 or 06/30/23 - feeling better, all symptoms gone except some pressure. Pre op edu rev. Diverticulosis hx Gastritis History of gastric polyp History of colon polyps Vertigo none for over a month Kidney stones current Renal mass [place] [facility] aware, monitoring Paresthesia of upper extremity sometimes arms Diarrhea current : on occ /finished abx recently. History of Helicobacter pylori infection Hx of Clostridium difficile infection Remote hx approximately 30 years ago History of COVID-19 03/19/2023 ([place], [place]) > resolved 11/2021- fatigue, congestion, cough, sore throat > resolved pt reports has had a total of 3 times : 1st time in 2019 ? Hx of melanoma of skin Pulmonary embolism Remote hx approximately 30 years ago, after SUMAN (blood thinners x 3 months) Acute diverticulitis listed in differential diagnosis 04/14/23 by hospitalist, not included on discharge summary Sciatica hx COPD (chronic obstructive pulmonary disease) well controlled per pt, rare res inh use Mild reactive airways disease Depression with anxiety Esophageal reflux Fibromyalgia Hypertension Irritable bowel syndrome Hypothyroidism Hyperlipidemia History of asthma Surgical History History of lithotripsy History of cystoscopy Hx of vascular surgery Dr Morales [facility] 07/2022 Distal LT GSV accessed under ultrasound guidance with placement of 4Fr sheath History of esophagogastroduodenoscopy (EGD) Hx of cataract extraction Hx of melanoma excision stomach S/P dilation and curettage History of cryosurgery History of colonoscopy (10/12/19) 4 polyps removed, [facility], Dr. Roque S/P tonsillectomy S/P sinus surgery S/P SUMAN-BSO S/P laparoscopic cholecystectomy S/P appendectomy Family History Mother Diabetes Father Heart disease Other Asthma Cancer Gallbladder disease Hypertension Stroke Denies family history of Ovarian cancer Myocardial infarction Breast cancer Colorectal cancer Colonic polyp Uterine cancer Social History Smoking Status: Former smoker Tobacco Type: Cigarettes Age Started Using Tobacco: 18; Age Quit Using Tobacco: 58; Second Hand Exposure: No; Do You Dip or Chew Tobacco: No; Hx Alcohol Use: No Hx Substance Use: No Preferred Language: Rwandan Communication Ability: Effective Visual Impairment: No Limitations Hearing Ability: Normal Batting Machine Operator Required: No Beliefs That Will Affect Care: None marital status: Current Living Situation: Spouse Current Living Situation Comment: [facility] current occupational status: disabled Feels Safe at Home: Yes Childhood Exposure to Second-Hand Smoke: Yes Dental Care, Regularly: Yes Seatbelt Use: always Sunscreen Use: Yes Do you think of yourself as: straight/heterosexual Sexual Activity: has been sexually active within the last 12 months Assistive Devices: Walker Physical Exam Vital Signs Vital Signs - 24 hr 03/30/25 11:30 03/30/25 11:42 03/30/25 12:00 Temperature 36.4 C L Temperature Source Temporal Artery Scan Pulse Rate 77 66 72 Pulse Rate [Apical] Respiratory Rate 20 Respiratory Effort / Characteristics Non-Labored Spontaneous Respiratory Depth Normal Blood Pressure 159/80 H Blood Pressure [Right Arm] Blood Pressure Mean 106 Blood Pressure Mean [Right Arm] Blood Pressure Position Sitting Pulse Oximetry 97 95 Oxygen Delivery Method Room Air Room Air Sepsis Recent Fever Within 48 Hours No Sepsis New/Unexplained Change in Mental Status N/A Sepsis Action Taken by Nursing No Action Required 03/30/25 14:57 03/30/25 15:49 Temperature Temperature Source Pulse Rate 69 Pulse Rate [Apical] 71 Respiratory Rate 16 Respiratory Effort / Characteristics Non-Labored Spontaneous Respiratory Depth Normal Blood Pressure Blood Pressure [Right Arm] 157/90 H Blood Pressure Mean Blood Pressure Mean [Right Arm] 112 Blood Pressure Position Pulse Oximetry 96 Oxygen Delivery Method Room Air Sepsis Recent Fever Within 48 Hours Sepsis New/Unexplained Change in Mental Status Sepsis Action Taken by Nursing CONSTITUTIONAL: Healthy and well nourished. Alert and oriented X 3. Patient appears in moderate discomfort. HEENT: No scleral icterus or conjunctival injection. Mucous membranes are dry. RESPIRATORY: Clear to auscultation bilaterally with no wheezing, crackles, rhonchi or stridor. CARDIOVASCULAR: Regular rate and rhythm with no murmurs, rubs or gallops. GASTROINTESTINAL: Bowel sounds minimized in all quadrants. Patient has generalized abdominal discomfort, more focused over the epigastric region. Negative McBurney's point tenderness, Rovsing sign or CVA tenderness. MUSCULOSKELETAL: Full range of motion of all joints without discomfort. No tenderness to palpation over the anterior chest wall or thoracolumbar spine. INTEGUMENTARY: No rash or other significant dermatologic conditions noted. HEMATOLOGIC: No ecchymosis or petechiae. PSYCHIATRIC: Flat affect. NEUROLOGIC: No focal neurologic deficits noted. Course Course Patient history and physical exam were performed. Nursing notes reviewed. Vital signs reviewed, showing a normal heart rate and no fever. Blood pressure is mildly elevated at 159/80. I did review outside medical records as well, showing that the patient did test positive for norovirus on 03/28/2025 (2 days ago). I was also able to locate an outpatient [facility], operated by [facility] gastroenterology note from 02/28/2025. They outlined many prior GI interventions that have been trialed without any success. They recommended a MiraLAX bowel purge with subsequent trial prescription for pyridostigmine prokinetic treatment. They also ordered an upper GI series with small bowel follow-through to assess for SMA syndrome the patient again reports that she was unable to do any of these interventions or procedures secondary to COVID illness after her appointment. It was also noted through outpatient records of the patient's last admission to our facility and discharge it was on 02/16/2025. The patient has had multiple imaging studies at our facility as well without any definitive findings. IV access was established today, and labs were ordered and drawn. The patient was hydrated with a liter of normal saline, and administered IV Dilaudid and Zofran for pain and nausea control. An ECG was performed, showing normal sinus rhythm with T wave inversions in septal leads. The patient was placed on monitor worker while in the emergency department. X-rays of the abdomen and chest did not show any obstructive findings. Further review of labs shows a hemoglobin of 11.8, with normal white count and platelet count. PT and INR are normal. CMP shows an elevated random glucose, otherwise no other concerning electrolyte abnormalities. Lactate is 1.5. Procalcitonin was also negative. Urinalysis does not show any hematuria or signs of infection. Findings were discussed with the patient. The patient reported that she still has notable discomfort and nausea, therefore was administered additional Dilaudid and Zofran. After an additional period of observation, the patient was still reporting notable discomfort, and did not feel well enough for discharge. At this point, I did reach out to the protective services case worker, as well as the [facility] service, who did agree to evaluate the patient. Please see their dictation for further treatment and final disposition. The case was also discussed with Dr. Wyatt, ED attending physician, who agrees with workup and outpatient plan of care. Administered Medications Amoxicillin (Amoxicillin 500 Mg Cap) 500 mg PO TID [facility]; Protocol Stop: 03/31/25 14:01 Last Admin: 03/31/25 07:30 Dose: 500 mg Documented By: andreia Admin: 03/30/25 20:29 Dose: 500 mg Documented By: michael Bupropion HCl (Bupropion Sr 150 Mg Tabcr) 150 mg PO BID [facility] Stop: 04/29/25 20:59 Last Admin: 03/31/25 07:30 Dose: 150 mg Documented By: andreia Admin: 03/30/25 20:29 Dose: 150 mg Documented By: michael Dicyclomine HCl (Dicyclomine Hcl 10 Mg Cap) 10 mg PO TID [facility] Stop: 04/29/25 20:59 Last Admin: 03/31/25 07:30 Dose: 10 mg Documented By: andreia Admin: 03/30/25 20:29 Dose: 10 mg Documented By: michael Gabapentin (Gabapentin 100 Mg Cap) 100 mg PO BID [facility] Stop: 04/29/25 20:59 Last Admin: 03/31/25 07:30 Dose: 100 mg Documented By: andreia Admin: 03/30/25 20:29 Dose: 100 mg Documented By: michael Hydromorphone HCl (Hydromorphone Inj 0.5 Mg/0.5 Ml Syr) 0.25 mg IV Q3H PRN PRN Reason: Pain Stop: 04/13/25 18:41 Last Admin: 03/31/25 06:32 Dose: 0.25 mg Documented By: michael Admin: 03/31/25 01:23 Dose: 0.25 mg Documented By: michael Admin: 03/30/25 19:56 Dose: 0.25 mg Documented By: michael Potassium Chloride/Sodium Chloride (Normal Saline W/20 Meq Kcl) 20 meq in 1,000 mls @ 100 mls/hr IV .Q10H [facility] Stop: 03/31/25 14:59 Last Admin: 03/31/25 05:34 Dose: 100 mls/hr Documented By: michael Infusion: 03/31/25 05:34 Dose: Infused Documented By: michael Admin: 03/30/25 19:39 Dose: 100 mls/hr Documented By: michael Promethazine HCl (Phenergan) 6.25 mg in 50.25 mls @ 201 mls/hr IV Q6H PRN PRN Reason: Nausea And Vomiting Stop: 04/29/25 18:41 Last Admin: 03/31/25 07:21 Dose: 201 mls/hr Documented By: andreia Levothyroxine Sodium (Levothyroxine Sodium 88 Mcg Tablet) 88 mcg PO DAILYBB [facility] Stop: 04/30/25 06:29 Last Admin: 03/31/25 05:36 Dose: 88 mcg Documented By: michael Miscellaneous (Budesonide/Formoterol Fumarate 80/4.5 - Order Awaiting Action) 1 each N/A QS [facility]; Protocol Stop: 04/30/25 00:00 Last Admin: 03/31/25 07:34 Dose: Not Given Documented By: andreia Admin: 03/30/25 23:30 Dose: Not Given Documented By: michael Miscellaneous (Estradiol 0.01 % Cream - Order Awaiting Action) 1 each N/A QS [facility] Stop: 04/30/25 00:00 Last Admin: 03/31/25 07:34 Dose: Not Given Documented By: andreia Admin: 03/30/25 23:30 Dose: Not Given Documented By: michael Ondansetron HCl (Ondansetron Inj 2 Mg/Ml 2 Ml Vial) 4 mg IV Q6H PRN PRN Reason: Nausea Stop: 04/29/25 18:41 Last Admin: 03/31/25 01:30 Dose: 4 mg Documented By: michael Admin: 03/30/25 19:36 Dose: 4 mg Documented By: michael Pantoprazole Sodium (Pantoprazole 40 Mg Tab) 40 mg PO BID [facility] Stop: 04/29/25 20:59 Last Admin: 03/31/25 07:30 Dose: 40 mg Documented By: andreia Admin: 03/30/25 20:29 Dose: 40 mg Documented By: michael Propranolol HCl (Propranolol Hcl 60 Mg La [place]) 60 mg PO HS [facility] Stop: 04/29/25 20:59 Last Admin: 03/30/25 20:43 Dose: 60 mg Documented By: michael Sucralfate (Sucralfate 1 Gm/10 Ml Udc) 1 gm PO QID [facility] Stop: 04/29/25 18:41 Last Admin: 03/31/25 07:30 Dose: 1 gm Documented By: andreia Admin: 03/30/25 20:43 Dose: 1 gm Documented By: michael Admin: 03/30/25 20:28 Dose: 1 gm Documented By: michael Discontinued Medications Hydromorphone HCl (Hydromorphone Inj 0.5 Mg/0.5 Ml Syr) 0.5 mg IV NOW STA Stop: 03/30/25 12:01 Last Admin: 03/30/25 12:18 Dose: 0.5 mg Documented By: marianne Hydromorphone HCl (Hydromorphone Inj 0.5 Mg/0.5 Ml Syr) 0.25 mg IV NOW STA Stop: 03/30/25 14:33 Last Admin: 03/30/25 14:49 Dose: 0.25 mg Documented By: marianne Hydromorphone HCl (Hydromorphone Inj 0.5 Mg/0.5 Ml Syr) 0.25 mg IV NOW STA Stop: 03/30/25 16:02 Last Admin: 03/30/25 16:43 Dose: 0.25 mg Documented By: marianne Sodium Chloride (Nss) 1,000 mls @ 999 mls/hr IV .Q1H1M STA Stop: 03/30/25 13:00 Last Infusion: 03/30/25 19:44 Dose: Infused Documented By: michael Admin: 03/30/25 12:18 Dose: 999 mls/hr Documented By: marianne Promethazine HCl (Phenergan) 6.25 mg in 50.25 mls @ 201 mls/hr IV NOW STA Stop: 03/30/25 16:15 Last Infusion: 03/30/25 19:43 Dose: Infused Documented By: michael Admin: 03/30/25 16:43 Dose: 201 mls/hr Documented By: marianne Sodium Chloride (Nss) 500 mls @ 999 mls/hr IV .Q31M ONE Stop: 03/30/25 16:43 Last Infusion: 03/30/25 19:44 Dose: Infused Documented By: [email or web address] Admin: 03/30/25 16:44 Dose: 999 mls/hr Documented By: marianne Ondansetron HCl (Ondansetron Inj 2 Mg/Ml 2 Ml Vial) 4 mg IV NOW STA Stop: 03/30/25 12:01 Last Admin: 03/30/25 12:18 Dose: 4 mg Documented By: marianne Medical Decision Making Medical Records Attestation: I reviewed the patient's medical records. Home Medications was personally reviewed by me Laboratory Data Attestation: I reviewed the patient's lab results. 03/30/25 11:45 03/30/25 11:45 Lab Results 03/30/25 03/30/25 03/30/25 Range/Units 11:45 12:09 12:20 WBC 7.92 (4.8-10.8) K/ul RBC 4.53 (4.20-5.40) M/uL Hgb 11.8 L (12.0-16.0) g/dL Hct 37.5 (37.0-47.0) % MCV 82.8 (80.0-100.0) fL MCH 26.0 (25.0-34.0) pg MCHC 31.5 L (32.0-36.0) g/dL RDW Std Deviation 46.5 H (36.4-46.3) fL RDW Coeff of Sánchez 15.7 H (11.5-14.5) % Plt Count 254 (130-400) K/uL MPV 9.3 L (9.4-12.4) fL Immature Gran % (Auto) 0.5 % Neut % (Auto) 72.3 % Lymph % (Auto) 18.9 % [place] % (Auto) 7.2 % Eos % (Auto) 0.6 % Baso % (Auto) 0.5 % Neut # (Auto) 5.72 (1.40-6.50) K/uL Lymph # (Auto) 1.50 (1.20-3.40) K/uL [place] # (Auto) 0.57 (0.11-0.59) K/uL Eos # (Auto) 0.05 (0.00-0.50) K/uL Baso # (Auto) 0.04 (0.00-0.20) K/uL Immature Gran # (Auto) 0.04 (0.01-0.20) K/uL PT 11.1 (9.0-12.0) Seconds INR 1.1 (0.9-1.1) Sodium 138 (136-145) mmol/L Potassium 3.7 (3.5-5.1) mmol/L Chloride 103 (98-107) mmol/L Carbon Dioxide 28 (21-32) mmol/L Anion Gap 7 (3-11) BUN 7 (6-23) mg/dl Creatinine 0.77 (0.6-1.2) mg/dl Est Cr Clr Drug Dosing 64.7 ml/min eGFR 85.02 BUN/Creatinine Ratio 9.1 L (10-20) Glucose 130 H (70-99(Fasting)) mg/dl Lactate 1.5 (0.4-2.0) mmol/L Calcium 9.8 (8.6-10.3) mg/dl Magnesium 1.9 (1.7-2.4) mg/dl Total Bilirubin 0.7 (0.2-1.0) mg/dl AST 11 L (13-39) U/L ALT 11 (7-52) U/L Alkaline Phosphatase 43 (34-104) U/L Troponin I High Sens 2.7 (0-14) pg/ml Total Protein 7.1 (6.0-8.3) gm/dl Albumin 3.8 (3.4-5.0) gm/dl Globulin 3.3 (2.5-4.0) gm/dl Albumin/Globulin Ratio 1.2 (0.9-2) Lipase 13 (11-82) U/L Procalcitonin < 0.02 (0-0.5) ng/ml TSH 3.009 (0.300-4.500) uIu/ml Urine Color Urine Appearance (Clear) Urine pH (4.5-7.5) Ur Specific [place] (1.000-1.030) Urine Protein (Negative) Urine Glucose (UA) (Negative) Urine Ketones (Negative) Urine Blood (Negative) Urine Nitrite (Negative) Urine Bilirubin (Negative) Urine Urobilinogen (Negative) Ur Leukocyte Esterase (Negative) Urine Comment 03/30/25 Range/Units 13:43 WBC (4.8-10.8) K/ul RBC (4.20-5.40) M/uL Hgb (12.0-16.0) g/dL Hct (37.0-47.0) % MCV (80.0-100.0) fL MCH (25.0-34.0) pg MCHC (32.0-36.0) g/dL RDW Std Deviation (36.4-46.3) fL RDW Coeff of Sánchez (11.5-14.5) % Plt Count (130-400) K/uL MPV (9.4-12.4) fL Immature Gran % (Auto) % Neut % (Auto) % Lymph % (Auto) % [place] % (Auto) % Eos % (Auto) % Baso % (Auto) % Neut # (Auto) (1.40-6.50) K/uL Lymph # (Auto) (1.20-3.40) K/uL [place] # (Auto) (0.11-0.59) K/uL Eos # (Auto) (0.00-0.50) K/uL Baso # (Auto) (0.00-0.20) K/uL Immature Gran # (Auto) (0.01-0.20) K/uL PT (9.0-12.0) Seconds INR (0.9-1.1) Sodium (136-145) mmol/L Potassium (3.5-5.1) mmol/L Chloride (98-107) mmol/L Carbon Dioxide (21-32) mmol/L Anion Gap (3-11) BUN (6-23) mg/dl Creatinine (0.6-1.2) mg/dl Est Cr Clr Drug Dosing ml/min eGFR BUN/Creatinine Ratio (10-20) Glucose (70-99(Fasting)) mg/dl Lactate (0.4-2.0) mmol/L Calcium (8.6-10.3) mg/dl Magnesium (1.7-2.4) mg/dl Total Bilirubin (0.2-1.0) mg/dl AST (13-39) U/L ALT (7-52) U/L Alkaline Phosphatase (34-104) U/L Troponin I High Sens (0-14) pg/ml Total Protein (6.0-8.3) gm/dl Albumin (3.4-5.0) gm/dl Globulin (2.5-4.0) gm/dl Albumin/Globulin Ratio (0.9-2) Lipase (11-82) U/L Procalcitonin (0-0.5) ng/ml TSH (0.300-4.500) uIu/ml Urine Color Yellow Urine Appearance Clear (Clear) Urine pH 7.0 (4.5-7.5) Ur Specific [place] 1.005 (1.000-1.030) Urine Protein Negative (Negative) Urine Glucose (UA) Negative (Negative) Urine Ketones Negative (Negative) Urine Blood Negative (Negative) Urine Nitrite Negative (Negative) Urine Bilirubin Negative (Negative) Urine Urobilinogen Negative (Negative) Ur Leukocyte Esterase Negative (Negative) Urine Comment Imaging Data Attestation: I personally reviewed and interpreted this imaging study as follows: My Impression: My interpretation of an abdomen x-rays with the PA chest view does not show evidence for obstruction or abdominal free air. Radiologist report was also reviewed with concurrence. Radiologist's Impression: Chest/Abdomen X-ray 03/30/25 12:01 PA CHEST RADIOGRAPH AND UPRIGHT AND SUPINE AP RADIOGRAPHS OF THE ABDOMEN CLINICAL HISTORY: Epigastric pain. COMPARISON STUDY: Chest radiograph and CT of the abdomen and pelvis March 27, 2025. Chest CT March 11, 2025. FINDINGS: There is no pneumothorax or pleural effusion. There is no consolidation or evidence for pulmonary edema. Cardiomediastinal silhouette is unremarkable. There is no evidence for free air. Gas throughout small and large bowel is noted. There is no evidence for a bowel obstruction. There is post cholecystectomy. No urinary calculi are identified. IMPRESSION: 1. No free air or evidence for a bowel obstruction. 2. No acute cardiopulmonary findings. ACT 112: Negative or not required by law. Electronically signed by: Americo Joya M.D. 03/30/2025 2:48 PM ECG Data Attestation: I personally reviewed and interpreted this ECG as follows: Indication: + abdominal pain and + nausea Rate (beats per minute): 65 Rhythm: + normal sinus ECG Intervals/blocks: + Normal QRS, + Normal QT and + Normal MA ECG [place]: + Normal ECG ST segments: + Normal ST segments and + T-wave inversions (Anterior) Comparison ECG Date: from (03/27/2025) Change: the following changes noted (Sinus rhythm has replaced her previous junctional rhythm.) MDM Narrative Cardiac monitoring: An order was placed for continuous cardiac monitoring. The monitor shows a rate of 65 bpm with a normal sinus rhythm. library monitor history was reviewed throughout the evaluation, and no dysrhythmias were noted. See ED Course section for further details of today's visit. Patient presents with complaint of chronic abdominal pain, with ongoing upper abdominal pain and nausea. The patient has had extensive workup for her symptoms, including recent referral to [facility] gastroenterology in [place]. They had a high suspicion for gastroparesis, and did recommend a bowel purge and prokinetic trial. The patient unfortunately developed a COVID-19 infection, and has not been able to start her medications. Patient also had a small bowel follow-through about a week ago that did not show any concerning findings. The patient has had multiple CT imagings of her abdomen, especially to prior within the past 6 days from recent ED visits. X-rays today did not show any concerning obstructive findings, and given no prior significant abnormal CT scans, I did not feel that further radiation exposure was warranted. The patient does not have any concerning laboratory studies. Patient did not get any significant relief with opioids and Zofran, therefore the case was further discussed with the hospitalist service, who has agreed to evaluate the patient. It is noted that patient has received previous opioid prescriptions, which is not recommended with gastroparesis. The case was also discussed with Dr. Wyatt, ED attending physician, who agrees with workup and outpatient plan of care. Attending Attestation: I Salomon Wyatt MD I have reviewed the advanced practitioner's documentation and agree with the plan of care. I accept the responsibility for the associated risk of managing the patient. I performed a substantive portion of the visit including involvement in all aspects of medical decision making. Impression Acute exacerbation of chronic abdominal pain, Nausea, Gastroparesis Discharge Plan Visit Data Chief Complaint: Abdominal Pain Stated Complaint: ABD PAIN, REF BY DOC, TOLD SHE HAS NOROVIRUS ED Provider: Salomon Wyatt ED Midlevel Provider: Romero Quiroga Discharge Problem: Acute exacerbation of chronic abdominal pain, Nausea, Gastroparesis Patient Disposition: Admitted As Inpatient Condition: Fair Discharge Instructions Interventions: ED Discharge Assessment Last Done: 03/30/25 18:16 ED DC CONDITION Conditon at Discharge Condition at Discharge: Fair
[2025-03-30] MEDS: HYDROmorphone INJ 0.5 MG/0.5 ML SYR IV STA ×3 (12:18→16:43)
[2025-03-30] MEDS: SODIUM CHLORIDE 0.9% 1,000 ML IV STA (12:18)
[2025-03-30] MEDS: ONDANSETRON INJ 2 MG/ML 2 ML VIAL IV STA (12:18)
[2025-03-30 12:19] LABS: Hematocrit (blood only) 37.5 % (37.0-47.0); Hemoglobin 11.8 g/dL (12.0-16.0); Immature Granulocytes # (auto) 0.04 K/uL (0.01-0.20); Immature Granulocytes % (auto) 0.5 %; Mean Corpuscular Hemoglobin 26.0 pg (25.0-34.0); Mean Corpuscular Volume 82.8 fL (80.0-100.0); Platelet Count 254 K/uL (130-400); RDW Standard Deviation 46.5 fL (36.4-46.3); Red Blood Count 4.53 M/uL (4.20-5.40); White Blood Count 7.92 K/ul (4.8-10.8)
[2025-03-30 12:40] LABS: Alanine Aminotransferase 11.0 U/L (7-52); Albumin Globulin Ratio 1.2 (0.9-2); Albumin Level 3.8 gm/dl (3.4-5.0); Alkaline Phosphatase 43.0 U/L (34-104); Anion Gap 7.0 (3-11); Bilirubin,Total 0.7 mg/dl (0.2-1.0); Blood Urea Nitrogen 7.0 mg/dl (6-23); Calcium 9.8 mg/dl (8.6-10.3); Carbon Dioxide 28.0 mmol/L (21-32); Chloride 103.0 mmol/L (98-107); Creatinine Clr Calc Pharmacy 64.7 ml/min; Globulin 3.3 gm/dl (2.5-4.0); Glucose 130.0 mg/dl (70-99(Fasting)); Lipase 13.0 U/L (11-82); Potassium 3.7 mmol/L (3.5-5.1); Sodium 138.0 mmol/L (136-145); Total Protein 7.1 gm/dl (6.0-8.3)
[2025-03-30 12:47] LABS: INR 1.1 (0.9-1.1); Prothrombin Time 11.1 Seconds (9.0-12.0)
[2025-03-30 13:55] LABS: Appearance Urine Clear (Clear); Glucose Urine UA Negative (Negative)
--- NOTE | 2025-03-30 14:49 | XRay Report ---
PA CHEST RADIOGRAPH AND UPRIGHT AND SUPINE AP RADIOGRAPHS OF THE ABDOMEN CLINICAL HISTORY: Epigastric pain. COMPARISON STUDY: Chest radiograph and CT of the abdomen and pelvis March 27, 2025. Chest CT [facility]. FINDINGS: There is no pneumothorax or pleural effusion. There is no consolidation or evidence for pu lmonary edema. Cardiomediastinal silhouette is unremarkable. There is no evidence for free air. Gas t hroughout small and large bowel is noted. There is no evidence for a bowel obstruction. There is post cholecystectomy. No urinary calculi are identified. IMPRESSION: 1. No free air or evidence for a bowel obstruction. 2. No acute cardiopulmonary findings. ACT 112: Negative or not required by law. Electronically signed by: Americo Joya M.D. 03/30/2025 2:48 PM
--- NOTE | 2025-03-30 16:14 | History & Physical Report ---
Date of Service March 30, 2025 Assessment & Plan (1) Enteritis due to Norovirus: (2) Acute exacerbation of chronic abdominal pain: (3) Gastroparesis: (4) Nausea: (5) Primary hypothyroidism: (6) Essential hypertension: (7) Anxiety and depression: (8) History of COVID-19: (9) COPD (chronic obstructive pulmonary disease): (10) Esophageal reflux: (11) Hyperlipidemia: (12) Vaginitis: Plan 64yo female with chronic abdominal pain and gastroparesis - followed by [facility] - presents with 2-3 days of severe acute on chronic upper abdominal pain along with nausea. On 03/28 a stool BioFire was positive for Norovirus. Overnight last night she had numerous soft/loose stools - was essentially up all night in the bathroom. #acute on chronic abdominal pain - -acute component 2nd to Norovirus infection -chronic component - to date has had EXTENSIVE evaluation by [facility] as well as [facility] - numerous CTs, EGDs, upper GI series, x-rays, gastric emptying study, blood work, porphyria work-up (twice), etc. -gastric emptying study showed mild gastroparesis in 2024 -chronic GI symptoms 2nd to gastroparesis? -did not tolerate reglan by report -last office visit with [facility] advised initiation of pyridostigmine but she has been too ill since late February to start such -for acute pain - not ideal - but continue IV dilaudid prn -zofran first line for nausea/emesis; phenergan low-dose for 2nd line use -clear liquids as tolerated -IV fluids -BMP am -trial of bentyl for cramps -cont antacids #Norovirus enteritis - -supportive care -contact precautions -bentyl prn cramps -anti-emetics prn -simethicone prn -etc. #COVID-19 infection - 02/2025 - -there are reports that COVID-19 can worsen pre-existing neurological conditions, GI conditions, etc. -sounds as if her COVID indeed exacerbated her chronic GI issues #gastroparesis - -see discussion above under acute/chronic abd pain #hypothyroidism - -TSH 3 today - compensated -cont levothyroxine #GERD - -cont PPI twice daily -carafate 1gm QID -H pylori stool Ag negative 2x's over the last year #HTN - -cont home meds #enterococcal vaginitis - 03/21/25 genital culture - -cont amoxicillin - today is day #6 of 7 #remote h/o PE // DVT prophylaxis - -start lovenox 40mg daily #COPD - -no exacerbation at this time -albuterol prn updated at bedside today History of Present Illness Chief Complaint: severe abdominal pain Primary Care Provider: La Nena Garrett MD 64yo female with chronic abdominal pain and gastroparesis - followed by [facility] - presents with 2-3 days of severe acute on chronic upper abdominal pain along with nausea. On 03/28 a stool BioFire was positive for Norovirus. Overnight last night she had numerous soft/loose stools - was essentially up all night in the bathroom. No fevers. During my assessment she was very tearful due to the pain in her abdomen. She has had poor PO intake the last few days because of her pain. She was prescribed dilaudid to be used prn for her abdominal pain in February, and this was refilled in early March. She has taken if off/on but in the last 1-2 days was nervous to take it for fear it might make her symptoms worse. A review of her record shows multiple ER visits over the last month for abdominal pain, back pain, nausea, vaginal symptoms, etc. She also had COVID in February. She reports that she had no fever or respiratory symptoms from her COVID but had acute worsening of her chronic abdominal symptoms with that illness. She did see [facility] in February and at that time they wanted to perform a bowel prep followed by initiation of pyridostigmine for her chronic gastroparesis but she never started such due to recurrent illness. Allergies Allergy/AdvReac Type Severity Reaction Status Date / Time bacitracin Allergy Intermediate Hives Verified 03/30/25 15:22 [From Neosporin ([id number])] famotidine Allergy Intermediate Hives Verified 03/30/25 15:22 neomycin Allergy Intermediate Hives Verified 03/30/25 15:22 [From Neosporin ([id number])] polymyxin B Allergy Intermediate Hives Verified 03/30/25 15:22 [From Neosporin ([id number])] lactose AdvReac Intermediate Gastrointestinal Verified 03/30/25 15:22 Upset olmesartan AdvReac Intermediate Diarrhea Verified 03/30/25 15:22 vilanterol AdvReac Intermediate Swelling Verified 03/30/25 15:22 [From Ericao Natasha] of legs/feet and GI Upset levofloxacin AdvReac Unknown tendinopathy Verified 03/30/25 15:22 - undetermined if med was cause. Home Medications Medication Instructions Recorded Confirmed Type levothyroxine 88 mcg tablet 88 mcg PO QAM 02/13/23 03/30/25 History budesonide-formoterol HFA 80 2 inh inhalation BID #30.59 grams 05/07/23 03/30/25 Rx mcg-4.5 mcg/actuation aerosol inhaler (Symbicort) cyclosporine 0.09 % eye drops in a 1 drp OPB BID 08/22/23 03/30/25 History dropperette (Cequa) propranolol 60 mg capsule,24 60 mg PO HS 10/15/24 03/30/25 History hr,extended release pantoprazole 40 mg tablet,delayed 40 mg PO BID #60 tabs 10/20/24 03/30/25 Rx release sucralfate 1 gram tablet 1 g PO QID #90 tabs 01/26/25 03/30/25 Rx bupropion HCl 150 mg tablet,12 hr 150 mg PO BID #60 ea 02/16/25 03/30/25 Rx sustained-release gabapentin 100 mg capsule 100 mg PO BID #60 caps 02/16/25 03/30/25 Rx hydromorphone 2 mg tablet 4 mg (2 x 2 mg) PO Q3RWA PRN pain 02/16/25 03/30/25 Rx (Dilaudid) #30 tabs pyridostigmine bromide 60 mg tablet 60 mg PO TID 03/01/25 03/30/25 History azelastine 137 mcg (0.1 %) nasal 1 spray intranasal BID PRN 03/05/25 03/30/25 History spray Congestion promethazine 25 mg tablet 25 - 50 mg (1 - 2 x 25 mg) PO Q6H 03/08/25 03/30/25 Rx PRN nausea and vomiting #20 tabs albuterol sulfate 90 mcg/actuation 1 inh inhalation Q4H PRN shortness 03/11/25 03/30/25 Rx aerosol inhaler of breath or wheezing #8.5 grams estradiol 0.01% (0.1 mg/gram) 1 g vaginal 3XWK PRN NEEDED PER 03/24/25 03/30/25 History vaginal cream PT ondansetron 4 mg disintegrating 4 mg PO Q8H PRN nausea and 03/29/25 03/30/25 Rx tablet vomiting #20 tabs amoxicillin 500 mg capsule 500 mg PO TID 03/30/25 03/30/25 History Past Med/Surg History Problem List (Updated 03/31/25 @ 06:34 by Uabldo Chi MD) Vaginitis Enteritis due to Norovirus Gastroparesis (Acute) Nausea (Acute) Acute exacerbation of chronic abdominal pain (Acute) Diarrhea (Acute) Nausea (Acute) Abdominal pain (Acute) Hypokalemia (Acute) Abdominal pain, chronic, generalized (Acute) Back pain (Acute) Dysuria (Acute) Vaginal discharge (Acute) Vaginal pain (Acute) COVID-19 (Acute) COVID-19 (Acute) Chronic abdominal pain Leiomyoma Constipation Generalized abdominal pain (Acute) Enterocolitis Anemia Abnormal computerized axial tomography of liver (Acute) Vulvar burning Chronic nausea Drug allergy Atrophic vaginitis Right kidney mass Recurrent UTI Depression Abnormal findings on imaging of biliary tract Abdominal pain (Acute) Bilateral kidney stones Epigastric pain Hip tendinitis Calcium kidney stone Hamstring tendinitis Arthritis of hip Hx of diverticulitis of colon Greater trochanteric pain syndrome Palpitations Chronic venous insufficiency Pain of right sacroiliac joint Helicobacter pylori infection C. difficile colitis Allergic rhinitis (Chronic) Idiopathic urticaria (Acute) Chronic sinusitis (Chronic) Impaired fasting glucose (Chronic) Medical History Chronic anemia Chronic pain syndrome Intractable abdominal pain Acute exacerbation of chronic abdominal pain Anxiety and depression Primary hypothyroidism Essential hypertension Urinary tract infection abx completed 06/28 or 06/30/23 - feeling better, all symptoms gone except some pressure. Pre op edu rev. Diverticulosis hx Gastritis History of gastric polyp History of colon polyps Vertigo none for over a month Kidney stones current Renal mass [place] [facility] aware, monitoring Paresthesia of upper extremity sometimes arms Diarrhea current : on occ /finished abx recently. History of Helicobacter pylori infection Hx of Clostridium difficile infection Remote hx approximately 30 years ago History of COVID-19 03/19/2023 ([place], [place]) > resolved 11/2021- fatigue, congestion, cough, sore throat > resolved pt reports has had a total of 3 times : 1st time in 2019 ? Hx of melanoma of skin Pulmonary embolism Remote hx approximately 30 years ago, after SUMAN (blood thinners x 3 months) Acute diverticulitis listed in differential diagnosis 04/14/23 by hospitalist, not included on discharge summary Sciatica hx COPD (chronic obstructive pulmonary disease) well controlled per pt, rare res inh use Mild reactive airways disease Depression with anxiety Esophageal reflux Fibromyalgia Hypertension Irritable bowel syndrome Hypothyroidism Hyperlipidemia History of asthma Surgical History History of lithotripsy History of cystoscopy Hx of vascular surgery Dr Morales [facility] 07/2022 Distal LT GSV accessed under ultrasound guidance with placement of 4Fr sheath History of esophagogastroduodenoscopy (EGD) Hx of cataract extraction Hx of melanoma excision stomach S/P dilation and curettage History of cryosurgery History of colonoscopy (10/12/19) 4 polyps removed, [facility], Dr. Roque S/P tonsillectomy S/P sinus surgery S/P SUMAN-BSO S/P laparoscopic cholecystectomy S/P appendectomy Family History Mother Diabetes Father Heart disease Other Asthma Cancer Gallbladder disease Hypertension Stroke Denies family history of Ovarian cancer Myocardial infarction Breast cancer Colorectal cancer Colonic polyp Uterine cancer Social History Smoking Status: Former smoker Tobacco Type: Cigarettes Age Started Using Tobacco: 18; Age Quit Using Tobacco: 58; Second Hand Exposure: No; Do You Dip or Chew Tobacco: No; Hx Alcohol Use: No Hx Substance Use: No Preferred Language: Citizen Of [place] Communication Ability: Effective Visual Impairment: No Limitations Hearing Ability: Normal Flux Tube Attendant Required: No Beliefs That Will Affect Care: None marital status: Current Living Situation: Spouse Current Living Situation Comment: [facility] current occupational status: disabled Feels Safe at Home: Yes Childhood Exposure to Second-Hand Smoke: Yes Dental Care, Regularly: Yes Seatbelt Use: always Sunscreen Use: Yes Do you think of yourself as: straight/heterosexual Sexual Activity: has been sexually active within the last 12 months Assistive Devices: Walker Review of Systems Review of Systems: gen - no fevers or chills eyes - no ocular complaints HENT - no URI symptoms CV - no chest pain pulm - no dyspnea GI - severe upper acute/chronic abd pain along with lower abdominal "cramps"; nausea, no vomiting; large # of stools overnight - soft/loose; no melena or BRBPR - no dysuria today musculo - denies myalgias neuro - no focal motor weakness endo - no diabetes skin - no rash Physical Exam Physical Exam: gen - tearful, looks tired; uncomfortable appearing; nontoxic; awake/alert eyes - PERRL HENT - MM dry, no lesions neck - no JVD, no lymph nodes heart - RRR, s1 s2, no murmur lungs - CTA b/l abd - distended, BS+ and decreased, tender epigastric region with light palpation; no HSM; also tender lower quadrants but modest at most in the lower abdomen; no peritoneal signs ext - no edema, pulses b/l feet 2+ neuro - no tremor, strength 5/5 x 4 exts; DTRs brisk upper and lower extremities skin - no rash psych - a/o x 3 but very tearful with restricted affect Results & Data Results & Data Vital Signs (Past 12 Hours) Vital Signs Temp Pulse Pulse Resp BP BP Pulse Ox 03/30/25 14:57 71 16 157/90 H 96 03/30/25 12:00 72 95 03/30/25 11:42 66 03/30/25 11:30 36.4 C L 77 20 159/80 H 97 O2 Del Method 03/30/25 14:57 Room Air 03/30/25 12:00 Room Air 03/30/25 11:42 03/30/25 11:30 Room Air Laboratory Results Laboratory Results - last 24 hr 03/30/25 03/30/25 03/30/25 11:45 12:09 12:20 WBC 7.92 RBC 4.53 Hgb 11.8 L Hct 37.5 MCV 82.8 MCH 26.0 MCHC 31.5 L RDW Std Deviation 46.5 H RDW Coeff of Sánchez 15.7 H Plt Count 254 MPV 9.3 L Immature Gran % (Auto) 0.5 Neut % (Auto) 72.3 Lymph % (Auto) 18.9 Arthur % (Auto) 7.2 Eos % (Auto) 0.6 Baso % (Auto) 0.5 Neut # (Auto) 5.72 Lymph # (Auto) 1.50 Arthur # (Auto) 0.57 Eos # (Auto) 0.05 Baso # (Auto) 0.04 Immature Gran # (Auto) 0.04 PT 11.1 INR 1.1 Sodium 138 Potassium 3.7 Chloride 103 Carbon Dioxide 28 Anion Gap 7 BUN 7 Creatinine 0.77 Est Cr Clr Drug Dosing 64.7 eGFR 85.02 BUN/Creatinine Ratio 9.1 L Glucose 130 H Lactate 1.5 Calcium 9.8 Magnesium 1.9 Total Bilirubin 0.7 AST 11 L ALT 11 Alkaline Phosphatase 43 Troponin I High Sens 2.7 Total Protein 7.1 Albumin 3.8 Globulin 3.3 Albumin/Globulin Ratio 1.2 Lipase 13 Procalcitonin < 0.02 TSH 3.009 Urine Color Urine Appearance Urine pH Ur Specific [place] Urine Protein Urine Glucose (UA) Urine Ketones Urine Blood Urine Nitrite Urine Bilirubin Urine Urobilinogen Ur Leukocyte Esterase Urine Comment 03/30/25 13:43 WBC RBC Hgb Hct MCV MCH MCHC RDW Std Deviation RDW Coeff of Sánchez Plt Count MPV Immature Gran % (Auto) Neut % (Auto) Lymph % (Auto) Arthur % (Auto) Eos % (Auto) Baso % (Auto) Neut # (Auto) Lymph # (Auto) Arthur # (Auto) Eos # (Auto) Baso # (Auto) Immature Gran # (Auto) PT INR Sodium Potassium Chloride Carbon Dioxide Anion Gap BUN Creatinine Est Cr Clr Drug Dosing eGFR BUN/Creatinine Ratio Glucose Lactate Calcium Magnesium Total Bilirubin AST ALT Alkaline Phosphatase Troponin I High Sens Total Protein Albumin Globulin Albumin/Globulin Ratio Lipase Procalcitonin TSH Urine Color Yellow Urine Appearance Clear Urine pH 7.0 Ur Specific [place] 1.005 Urine Protein Negative Urine Glucose (UA) Negative Urine Ketones Negative Urine Blood Negative Urine Nitrite Negative Urine Bilirubin Negative Urine Urobilinogen Negative Ur Leukocyte Esterase Negative Urine Comment Diagnostic Findings Chest/Abdomen X-ray 03/30/25 12:01 PA CHEST RADIOGRAPH AND UPRIGHT AND SUPINE AP RADIOGRAPHS OF THE ABDOMEN CLINICAL HISTORY: Epigastric pain. COMPARISON STUDY: Chest radiograph and CT of the abdomen and pelvis March 27, 2025. Chest CT March 11, 2025. FINDINGS: There is no pneumothorax or pleural effusion. There is no consolidation or evidence for pulmonary edema. Cardiomediastinal silhouette is unremarkable. There is no evidence for free air. Gas throughout small and large bowel is noted. There is no evidence for a bowel obstruction. There is post cholecystectomy. No urinary calculi are identified. IMPRESSION: 1. No free air or evidence for a bowel obstruction. 2. No acute cardiopulmonary findings. ACT 112: Negative or not required by law. Electronically signed by: Americo Joya M.D. 03/30/2025 2:48 PM ECG Additional Comments: EKG - NSR, nonspecific ST changes V2/V3, no other ST Changes; normal intervals Code Status & VTE Plan Code Status full code VTE Prophylaxis Plan VTE Prophylaxis will be ordered: Yes PG Care Time/CCT Total # of Minutes Spent Total Time Spent with Patient: Total time spent is greater than 50% in coordination of care (as documented) at patient's floor/unit and/or counseling patient: Coding Level of Care Code 85706 INT INP/OBS CARE 3/75MIN Diagnoses Enteritis due to Norovirus A08.11 Acute exacerbation of chronic abdominal pain R10.9; G89.29 Gastroparesis K31.84 Nausea R11.0 Primary hypothyroidism E03.9 Essential hypertension I10 Anxiety and depression F41.9; F32.A History of COVID-19 Z86.16 COPD (chronic obstructive pulmonary disease) J44.9 Esophageal reflux K21.9 Hyperlipidemia E78.5 Vaginitis N76.0
[2025-03-30 16:36] LABS: Magnesium 1.9 mg/dl (1.7-2.4)
[2025-03-30] MEDS: PROMETHAZINE 6.25 MG/50.25 ML BAG IV STA (16:43)
[2025-03-30] MEDS: SODIUM CHLORIDE 0.9% 500 ML IV ONE (16:44)
[2025-03-30 16:52] LABS: Thyroid Stimulating Hormone 3.009 uIu/ml (0.300-4.500)
[2025-03-30] MEDS ORDERED: ACETAMINOPHEN 325 MG TAB PO PRN (18:42)
[2025-03-30] MEDS ORDERED: ALBUTEROL HFA 8 GM INHALER INH PRN (18:42)
[2025-03-30] MEDS ORDERED: AZELASTINE HCL 0.1% NASAL 200 SPRAYS/27,400 MCG BTL PRN (18:42)
[2025-03-30] MEDS ORDERED: ARTIFICIAL TEARS OP PRN (18:49)
[2025-03-30] MEDS: ONDANSETRON INJ 2 MG/ML 2 ML VIAL IV PRN (19:36)
[2025-03-30] MEDS: NSS + 20MEQ KCL 20 MEQ/1,000 ML BAG IV SCH (19:39)
[2025-03-30] MEDS: HYDROmorphone INJ 0.5 MG/0.5 ML SYR IV PRN (19:56)
[2025-03-30] MEDS: SUCRALFATE 1 GM/10 ML UDC PO SCH (20:28)
[2025-03-30] MEDS: DICYCLOMINE HCL 10 MG CAP PO SCH (20:29)
[2025-03-30] MEDS: AMOXICILLIN 500 MG CAP PO SCH (20:29)
[2025-03-30] MEDS: GABAPENTIN 100 MG CAP PO SCH (20:29)
[2025-03-30] MEDS: PROPRANOLOL HCL 60 MG LA CAP PO SCH (20:43)
--- NOTE | 2025-03-30 22:23 | Electrocardiogram Report ---
Test Reason : Blood Pressure : */* mmHG Vent. Rate : 65 BPM Atrial Rate : 65 BPM P-R Int : 164 ms QRS Dur : 86 ms QT Int : 392 ms P-R-T Axes : 63 50 75 degrees QTcB Int : 407 ms Poor data quality, interpretation may be adversely affected Normal sinus rhythm Nonspecific ST and T wave abnormality Abnormal ECG When compared with ECG of 27-Mar-2025 08:04, Criteria for Septal infarct are no longer Present Confirmed by Toan Billings ([id number]) on 03/30/2025 10:23:47 PM Referred By: Confirmed By: Toan Billings
[2025-03-30] MEDS: ESTRADIOL 0.01% SCH (23:30)
[2025-03-31] MEDS: LEVOTHYROXINE SODIUM 88 MCG TABLET PO SCH (05:36)
[2025-03-31] MEDS: PROMETHAZINE 6.25 MG/50.25 ML BAG IV PRN (07:21)
[2025-03-31 10:43] LABS: Anion Gap 6.0 (3-11); Blood Urea Nitrogen 5.0 mg/dl (6-23); Calcium 8.4 mg/dl (8.6-10.3); Carbon Dioxide 24.0 mmol/L (21-32); Chloride 109.0 mmol/L (98-107); Creatinine Clr Calc Pharmacy 76.6 ml/min; Glucose 144.0 mg/dl (70-99(Fasting)); Potassium 3.9 mmol/L (3.5-5.1); Sodium 139.0 mmol/L (136-145)
--- NOTE | 2025-03-31 11:50 | Hospitalist Progress Note ---
"Date of Service March 31, 2025 Assessment & Plan (1) Enteritis due to Norovirus: (2) Acute exacerbation of chronic abdominal pain: (3) Gastroparesis: (4) Nausea: (5) History of COVID-19: (6) Esophageal reflux: (7) Vaginitis: Plan 64yo female with chronic abdominal pain and gastroparesis - followed by [facility] - presents with 2-3 days of severe acute on chronic upper abdominal pain along with nausea. On 03/28 a stool BioFire was positive for Norovirus. Overnight last night she had numerous soft/loose stools - was essentially up all night in the bathroom. #Norovirus enteritis | Acute on chronic abdominal pain | Gastroparesis - Acute component 2nd to Norovirus infection - Chronic component - to date has had EXTENSIVE evaluation by [facility] as well as [facility] - numerous CTs, EGDs, upper GI series, x-rays, gastric emptying study, blood work, porphyria work-up (twice), etc. -gastric emptying study showed mild gastroparesis in 2024 -chronic GI symptoms 2nd to gastroparesis? -did not tolerate Reglan by report -last office visit with [facility] advised initiation of pyridostigmine but she has been too ill since late February to start such - For acute pain - not ideal - but continue IV dilaudid prn - Zofran first line for nausea/emesis; phenergan low-dose for 2nd line use - Clear liquids as tolerated - can advance to full liquids 12/20 AM - Continue IV fluids - Ttrial of bentyl for cramps, simethicone prn - Cont antacids - Contact precautions #Enterococcal vaginitis | Yeast infection - identified 03/21/25 genital culture - Completed 7 day course of Amoxicillin on 03/31 - Diflucan 150 mg PO x 1 for yeast infection #GERD - - Cont PPI twice daily, Carafate 1gm QID - H pylori stool Ag negative 2x over the last year #COVID-19 infection - 02/2025 - There are reports that COVID-19 can worsen pre-existing neurological conditions, GI conditions, etc. - Sounds as if her COVID indeed exacerbated her chronic GI issues #Hypothyroidism - TSH 3 - compensated. Continue levothyroxine #HTN - cont home meds #COPD - no exacerbation at this time. Albuterol prn VTE PPx: Lovenox - remote history of PE Dispo: Continued inpatient stay. Working on symptom control and diet advancement Ordered Diflucan Admission and Anticipated Discharge Date Admission Date: March 30, 2025 Supervising Physician Co-Signing Physician Notes Attending Attestation - Chart reviewed, care plan d/w JOSE Comer. I agree w/ the robbins components of her documentation. Ubaldo Chi MD Subjective Patient seen and evaluated at bedside. She reports ongoing epigastric abdominal pain. She describes this as a constant achy sensation with intermittent sharp stabbing pains. She also reports some nausea, but states her antiemetics are helping. Denies vomiting. She has some reflux symptoms intermittently. Denies chest pain. She had one formed BM today and one BM that was loose and yellow. She also feels like she has a yeast infection with genital itching and burning. Denies dysuria. We discussed continuing on the clear liquid diet today given her intermittent nausea persisting, and advancing to full liquids tomorrow morning. We also discussed using Diflucan for her yeast infection. No additional complaints or concerns at this time. Telemetry reviewed: NSR 60s. Physical Exam Physical Exam: General: No acute distress, nondiaphoretic, well-developed, well-nourished. Skin: Warm, dry. No rashes or peripheral edema noted. Cardiac: Regular rate and rhythm without murmurs gallops or rubs. Pulm: Clear to auscultation bilaterally without wheezes, rales or rhonchi. Normal respiratory effort. 97% on room air. Abdominal: Soft. Tender to epigastrium with light palpation. No rebound or guarding. Mild tenderness in lower quadrants. Bowel sounds active. Neuro: A&O x3. No focal neurological deficits. Results & Data Results & Data Vital Signs (Past 12 Hours) Vital Signs Temp Pulse Pulse Resp BP Pulse Ox O2 Del Method 03/31/25 11:17 98.2 F 56 L 20 146/77 H 97 Room Air 03/31/25 08:30 97.9 F 58 L 20 161/82 H 98 Room Air 03/31/25 05:48 56 L 03/31/25 03:20 97.7 F 61 18 152/80 H 97 Room Air 03/31/25 00:00 97.7 F 64 18 139/81 97 Room Air Laboratory Results Reviewed CBC, chemistries, UA PG Care Time/CCT Total # of Minutes Spent Total Time Spent with Patient: Total time spent is greater than 50% in coordination of care (as documented) at patient's floor/unit and/or counseling patient: Coding Level of Care Code 66968 SUB INP/OBS CARE 3/50MIN Diagnoses Enteritis due to Norovirus A08.11 Acute exacerbation of chronic abdominal pain R10.9; G89.29 Gastroparesis K31.84 Nausea R11.0 History of COVID-19 Z86.16 Esophageal reflux K21.9 Vaginitis N76.0"
[2025-03-31] MEDS: FLUCONAZOLE 50 MG TAB PO ONE (12:23)
[2025-03-31] MEDS: HYDROmorphone INJ 0.5 MG/0.5 ML SYR IV STA (14:28)
[2025-04-01] MEDS: ACETAMINOPHEN 500 MG TAB PO PRN (05:57)
[2025-04-01 07:14] LABS: Alanine Aminotransferase 10.0 U/L (7-52); Albumin Globulin Ratio 1.3 (0.9-2); Albumin Level 3.4 gm/dl (3.4-5.0); Alkaline Phosphatase 37.0 U/L (34-104); Anion Gap 5.0 (3-11); Bilirubin,Total 0.6 mg/dl (0.2-1.0); Blood Urea Nitrogen 4.0 mg/dl (6-23); Calcium 8.5 mg/dl (8.6-10.3); Carbon Dioxide 29.0 mmol/L (21-32); Chloride 107.0 mmol/L (98-107); Creatinine Clr Calc Pharmacy 68.2 ml/min; Globulin 2.6 gm/dl (2.5-4.0); Glucose 89.0 mg/dl (70-99(Fasting)); Potassium 3.6 mmol/L (3.5-5.1); Sodium 141.0 mmol/L (136-145); Total Protein 6.0 gm/dl (6.0-8.3)
[2025-04-01] MEDS: POLYETHYLENE (MIRALAX) 17 GM PACK PO SCH (10:56)
[2025-04-01] MEDS: HYDROmorphone INJ 0.5 MG/0.5 ML SYR IV STA (11:17)
[2025-04-01] MEDS ORDERED: SIMETHICONE 40 MG/0.6 ML 30ML PO ONE ×2 (11:45→12:00)
[2025-04-01] MEDS: SIMETHICONE 40 MG/0.6 ML 30ML PO ONE (13:00)
--- NOTE | 2025-04-01 15:11 | Hospitalist Progress Note ---
"Date of Service April 01, 2025 Assessment & Plan (1) Enteritis due to Norovirus: (2) Acute exacerbation of chronic abdominal pain: (3) Gastroparesis: (4) Nausea: (5) History of COVID-19: (6) Esophageal reflux: (7) Vaginitis: Plan 64yo female with chronic abdominal pain and gastroparesis - followed by [facility] - presents with 2-3 days of severe acute on chronic upper abdominal pain along with nausea. On 03/28 a stool BioFire was positive for Norovirus. Overnight last night she had numerous soft/loose stools - was essentially up all night in the bathroom. #Norovirus enteritis | Acute on chronic abdominal pain | Gastroparesis - Acute component 2nd to Norovirus infection - Chronic component - to date has had EXTENSIVE evaluation by [facility] as well as [facility] - numerous CTs, EGDs, upper GI series, x-rays, gastric emptying study, blood work, porphyria work-up (twice), etc. -gastric emptying study showed mild gastroparesis in 2024 -chronic GI symptoms 2nd to gastroparesis? -did not tolerate Reglan by report -last office visit with [facility] advised initiation of pyridostigmine but she has been too ill since late February to start such - For acute pain - not ideal - but continue IV dilaudid prn - Zofran first line for nausea/emesis; phenergan low-dose for 2nd line use - Full liquid diet, advance as tolerated - Continue IV fluids - Trial of bentyl for cramps, simethicone prn - Cont antacids - Contact precautions #Enterococcal vaginitis | Yeast infection | Chronic vaginal burning - enterococcal vaginitis identified 03/21/25 genital culture. Has had persistent vaginal burning for about 1 year. She has undergone numerous vaginal cultures and has been seen by gynecology. She denies any itching or discharge. She feels the burning sensation constantly, not only when she urinates. - Completed 7 day course of Amoxicillin on 03/31 - S/p Diflucan 150 mg PO x 1 for yeast infection - Trial hydrocortisone 1% topical ointment in the case that this is lichenoid vulvitis - If ongoing symptoms despite hydrocortisone, consider MECHANICAL APPRENTICE consult #GERD - Cont PPI twice daily, Carafate 1gm QID - H pylori stool Ag negative 2x over the last year #COVID-19 infection - 02/2025 - There are reports that COVID-19 can worsen pre-existing neurological conditions, GI conditions, etc. - Sounds as if her COVID indeed exacerbated her chronic GI issues #Hypothyroidism - TSH 3 - compensated. Continue levothyroxine #HTN - cont home meds #COPD - no exacerbation at this time. Albuterol prn VTE PPx: Lovenox - remote history of PE Dispo: Continued inpatient stay. Working on symptom control and diet advancement Updated at bedside Ordered hydrocortisone ointment Admission and Anticipated Discharge Date Admission Date: March 30, 2025 Supervising Physician Co-Signing Physician Notes Attending Attestation - Chart reviewed, care plan d/w JOSE Comer. I agree w/ the robbins components of her documentation. Ubaldo Chi MD Subjective Patient seen and evaluated at bedside this morning with her present. She is in tears due to severe abdominal pain. She reports her pain yesterday was in her upper abdomen, pain is currently in her lower abdomen. She describes the pain as a significant cramping sensation. She also reports concurrent nausea. We discussed providing an additional dose of IV Dilaudid and simethicone suspension. Return to bedside in the afternoon. Patient reports her abdominal pain is still present but improved compared to prior. She also reports a genital burning sensation and feels as though her vaginitis has not resolved. She states that amoxicillin has not completely treated various infections for her previously. Informed her that I will review her gynecology notes. She is tolerating her liquid diet and requests some crackers to eat with her broth. No additional complaints or concerns at this time. Physical Exam Physical Exam: General: No acute distress, nondiaphoretic, well-developed, well-nourished. Skin: Warm, dry. No rashes or peripheral edema noted. Cardiac: Regular rate and rhythm without murmurs gallops or rubs. Pulm: Clear to auscultation bilaterally without wheezes, rales or rhonchi. Normal respiratory effort. 96% on room air. Abdominal: Soft, nondistended. Significant tenderness to mild palpation throughout abdomen. No rebound or guarding. Bowel sounds active. Neuro: A&O x3. No focal neurological deficits. Results & Data Results & Data Vital Signs (Past 12 Hours) Vital Signs Temp Pulse Pulse Resp BP Pulse Ox O2 Del Method 12/20/25 15:09 98.1 F 76 16 142/62 H 96 Room Air 04/01/25 11:52 98.1 F 66 16 149/72 H 96 Room Air 04/01/25 07:56 98.1 F 65 20 149/63 H 96 Room Air 04/01/25 07:19 70 04/01/25 04:02 98.1 F 82 12 158/77 H 97 Room Air Laboratory Results Reviewed CMP PG Care Time/CCT Total # of Minutes Spent Total Time Spent with Patient: Total time spent is greater than 50% in coordination of care (as documented) at patient's floor/unit and/or counseling patient: Coding Level of Care Code 23903 SUB INP/OBS CARE 3/50MIN Diagnoses Enteritis due to Norovirus A08.11 Acute exacerbation of chronic abdominal pain R10.9; G89.29 Gastroparesis K31.84 Nausea R11.0 History of COVID-19 Z86.16 Esophageal reflux K21.9 Vaginitis N76.0"
[2025-04-01] MEDS: SIMETHICONE 80 MG CHEW PO PRN (20:53)
[2025-04-01] MEDS: MELATONIN 3 MG TAB PO PRN (20:53)
[2025-04-01] MEDS: ALUMINUM/MAGNESIUM SUSP 30 ML UDC PO PRN (20:53)
[2025-04-01] MEDS: HYDROCORTISONE 1% OINT 30 GM TUBE EXT SCH (20:55)
--- NOTE | 2025-04-02 08:41 | Gastrointestinal Consultation ---
Date of Consultation April 02, 2025 Assessment & Plan (1) Acute exacerbation of chronic abdominal pain: Suspect exacerbation of chronic functional abdominal pain syndrome. Possibly related to recent COVID as well as norovirus. I doubt her mild gastroparesis explains her symptoms. Ultimately may benefit from tricyclic or SSRI therapy for pain. In light of epigastric tenderness would consider repeat CT scan to exclude any evolution of a more significant pathology. Continue symptomatic relief with Dilaudid as needed. Suggest repeating stool antigen for H. pylori since she had this in the past. Will reassess her symptoms over the next 24 to 48 hours to determine any need for further evaluation. History of Present Illness Reason for Consultation: Recurrent abdominal pain Attending Physician: Ubaldo Chi MD History of Present Illness Patient with longstanding history of chronic abdominal pain evaluated here and it [facility]. Has had multiple cross-sectional imaging, GI series and endoscopies in the past with unclear etiology. Recent gastric emptying study showed mild delayed gastric emptying at 4 hours. Has had recent infection with COVID and most recently norovirus based on PCR. Now presents with worsening abdominal pain primarily epigastric and suprapubic persistent crampy and sharp in quality no clear precipitating or relieving factors. Mild associated nausea. No vomiting. Has had some frequent bowel movements over the last several days. No fever no chills. Allergies Allergy/AdvReac Type Severity Reaction Status Date / Time bacitracin Allergy Intermediate Hives Verified 03/30/25 15:22 [From Neosporin ([id number])] famotidine Allergy Intermediate Hives Verified 03/30/25 15:22 neomycin Allergy Intermediate Hives Verified 03/30/25 15:22 [From Neosporin ([id number])] polymyxin B Allergy Intermediate Hives Verified 03/30/25 15:22 [From Neosporin ([id number])] lactose AdvReac Intermediate Gastrointestinal Verified 03/30/25 15:22 Upset olmesartan AdvReac Intermediate Diarrhea Verified 03/30/25 15:22 vilanterol AdvReac Intermediate Swelling Verified 03/30/25 15:22 [From Breo Ellipta] of legs/feet and GI Upset levofloxacin AdvReac Unknown tendinopathy Verified 03/30/25 15:22 - undetermined if med was cause. Home Medications Medication Instructions Recorded Confirmed Type levothyroxine 88 mcg tablet 88 mcg PO QAM 02/13/23 03/30/25 History budesonide-formoterol HFA 80 2 inh inhalation BID #30.59 grams 05/07/23 03/30/25 Rx mcg-4.5 mcg/actuation aerosol inhaler (Symbicort) cyclosporine 0.09 % eye drops in a 1 drp OPB BID 08/22/23 03/30/25 History dropperette (Cequa) propranolol 60 mg capsule,24 60 mg PO HS 10/15/24 03/30/25 History hr,extended release pantoprazole 40 mg tablet,delayed 40 mg PO BID #60 tabs 10/20/24 03/30/25 Rx release sucralfate 1 gram tablet 1 g PO QID #90 tabs 01/26/25 03/30/25 Rx bupropion HCl 150 mg tablet,12 hr 150 mg PO BID #60 ea 02/16/25 03/30/25 Rx sustained-release gabapentin 100 mg capsule 100 mg PO BID #60 caps 02/16/25 03/30/25 Rx hydromorphone 2 mg tablet 4 mg (2 x 2 mg) PO Q3RWA PRN pain 02/16/25 03/30/25 Rx (Dilaudid) #30 tabs pyridostigmine bromide 60 mg tablet 60 mg PO TID 03/01/25 03/30/25 History azelastine 137 mcg (0.1 %) nasal 1 spray intranasal BID PRN 03/05/25 03/30/25 History spray Congestion promethazine 25 mg tablet 25 - 50 mg (1 - 2 x 25 mg) PO Q6H 03/08/25 03/30/25 Rx PRN nausea and vomiting #20 tabs albuterol sulfate 90 mcg/actuation 1 inh inhalation Q4H PRN shortness 03/11/25 03/30/25 Rx aerosol inhaler of breath or wheezing #8.5 grams estradiol 0.01% (0.1 mg/gram) 1 g vaginal [id number] PRN NEEDED PER 03/24/25 03/30/25 History vaginal cream PT ondansetron 4 mg disintegrating 4 mg PO Q8H PRN nausea and 03/29/25 03/30/25 Rx tablet vomiting #20 tabs amoxicillin 500 mg capsule 500 mg PO TID 03/30/25 03/30/25 History Patient History Medical History Chronic anemia Chronic pain syndrome Intractable abdominal pain Acute exacerbation of chronic abdominal pain Anxiety and depression Primary hypothyroidism Essential hypertension Urinary tract infection abx completed 06/28 or 06/30/23 - feeling better, all symptoms gone except some pressure. Pre op edu rev. Diverticulosis hx Gastritis History of gastric polyp History of colon polyps Vertigo none for over a month Kidney stones current Renal mass [place] [facility] aware, monitoring Paresthesia of upper extremity sometimes arms Diarrhea current : on occ /finished abx recently. History of Helicobacter pylori infection Hx of Clostridium difficile infection Remote hx approximately 30 years ago History of COVID-19 03/19/2023 ([place], [place]) > resolved 11/2021- fatigue, congestion, cough, sore throat > resolved pt reports has had a total of 3 times : 1st time in 2019 ? Hx of melanoma of skin Pulmonary embolism Remote hx approximately 30 years ago, after SUMAN (blood thinners x 3 months) Acute diverticulitis listed in differential diagnosis 04/14/23 by hospitalist, not included on discharge summary Sciatica hx COPD (chronic obstructive pulmonary disease) well controlled per pt, rare res inh use Mild reactive airways disease Depression with anxiety Esophageal reflux Fibromyalgia Hypertension Irritable bowel syndrome Hypothyroidism Hyperlipidemia History of asthma Surgical History History of lithotripsy History of cystoscopy Hx of vascular surgery Dr Morales [facility] 07/2022 Distal LT GSV accessed under ultrasound guidance with placement of 4Fr sheath History of esophagogastroduodenoscopy (EGD) Hx of cataract extraction Hx of melanoma excision stomach S/P dilation and curettage History of cryosurgery History of colonoscopy (10/12/19) 4 polyps removed, [facility], Dr. Roque S/P tonsillectomy S/P sinus surgery S/P SUMAN-BSO S/P laparoscopic cholecystectomy S/P appendectomy Family History Mother Diabetes Father Heart disease Other Asthma Cancer Gallbladder disease Hypertension Stroke Denies family history of Ovarian cancer Myocardial infarction Breast cancer Colorectal cancer Colonic polyp Uterine cancer Social History Smoking Status: Former smoker Tobacco Type: Cigarettes Age Started Using Tobacco: 18; Age Quit Using Tobacco: 58; Second Hand Exposure: No; Do You Dip or Chew Tobacco: No; Hx Alcohol Use: No Hx Substance Use: No Preferred Language: Maori Communication Ability: Effective Visual Impairment: No Limitations Hearing Ability: Normal Retail Director Required: No Beliefs That Will Affect Care: None marital status: Current Living Situation: Spouse Current Living Situation Comment: [facility] current occupational status: disabled Feels Safe at Home: Yes Childhood Exposure to Second-Hand Smoke: Yes Dental Care, Regularly: Yes Seatbelt Use: always Sunscreen Use: Yes Do you think of yourself as: straight/heterosexual Sexual Activity: has been sexually active within the last 12 months Assistive Devices: Cane and Walker Review of Systems Review of Systems: No fever No chills No SOB No CP GI as per HPI Physical Exam Physical Exam: Eyes; anicteric HENT No masses Chest clear to A Cor S1, S2 physiologic Abd: Tenderness no rebound no guarding bowel sounds active no masses Ext no edema Results & Data Vital Signs (Past 12 Hours) Vital Signs Temp Pulse Pulse Resp BP BP Pulse Ox 04/02/25 08:06 36.6 C 68 18 150/76 H 96 04/02/25 07:50 59 L 04/02/25 03:06 36.2 C L 67 12 131/73 97 04/02/25 00:20 36.4 C L 59 L 12 125/67 97 04/01/25 21:35 60 04/01/25 20:51 36.4 C L 62 20 157/80 H 99 O2 Del Method 04/02/25 08:06 Room Air 04/02/25 07:50 04/02/25 03:06 Room Air 04/02/25 00:20 Room Air 04/01/25 21:35 04/01/25 20:51 Room Air Laboratory Results Laboratory Results - last 48 hr 03/31/25 04/01/25 09:43 06:13 Sodium 139 141 Potassium 3.9 3.6 Chloride 109 H 107 Carbon Dioxide 24 29 Anion Gap 6 5 BUN 5 L 4 L Creatinine 0.65 0.73 Est Cr Clr Drug Dosing 76.6 68.2 eGFR 97.04 90.64 BUN/Creatinine Ratio 7.7 L 5.5 L Glucose 144 H 89 Calcium 8.4 L 8.5 L Total Bilirubin 0.6 AST 11 L ALT 10 Alkaline Phosphatase 37 Total Protein 6.0 Albumin 3.4 Globulin 2.6 Albumin/Globulin Ratio 1.3 PG Care Time/CCT Total # of Minutes Spent Total Time Spent with Patient: Total time spent is greater than 50% in coordination of care (as documented) at patient's floor/unit and/or counseling patient: Coding Level of Care Code 01390 INT INP/OBS CARE 2/MIN Diagnoses Acute exacerbation of chronic abdominal pain R10.9; G89.29
[2025-04-02 09:10] LABS: Hematocrit (blood only) 31.4 % (37.0-47.0); Hemoglobin 9.8 g/dL (12.0-16.0); Mean Corpuscular Hemoglobin 26.3 pg (25.0-34.0); Mean Corpuscular Volume 84.2 fL (80.0-100.0); Platelet Count 204 K/uL (130-400); RDW Standard Deviation 48.7 fL (36.4-46.3); Red Blood Count 3.73 M/uL (4.20-5.40); White Blood Count 4.05 K/ul (4.8-10.8)
[2025-04-02 09:26] LABS: Anion Gap 5.0 (3-11); Blood Urea Nitrogen 4.0 mg/dl (6-23); Calcium 9.0 mg/dl (8.6-10.3); Carbon Dioxide 29.0 mmol/L (21-32); Chloride 107.0 mmol/L (98-107); Creatinine Clr Calc Pharmacy 64.7 ml/min; Glucose 97.0 mg/dl (70-99(Fasting)); Potassium 3.6 mmol/L (3.5-5.1); Sodium 141.0 mmol/L (136-145)
--- NOTE | 2025-04-02 10:59 | Hospitalist Progress Note ---
"Date of Service April 02, 2025 Assessment & Plan (1) Enteritis due to Norovirus: (2) Acute exacerbation of chronic abdominal pain: (3) Gastroparesis: (4) Nausea: (5) History of COVID-19: (6) Esophageal reflux: (7) Vaginitis: Plan 64yo female with chronic abdominal pain and gastroparesis - followed by [facility] - presents with 2-3 days of severe acute on chronic upper abdominal pain along with nausea. On 03/28 a stool BioFire was positive for Norovirus. #Norovirus enteritis | Acute on chronic abdominal pain | Gastroparesis - Acute component 2nd to Norovirus infection - Chronic component - to date has had EXTENSIVE evaluation by [facility] as well as [facility] - numerous CTs, EGDs, upper GI series, x-rays, gastric emptying study, blood work, porphyria work-up (twice), etc. -gastric emptying study showed mild gastroparesis in 2024 -chronic GI symptoms 2nd to gastroparesis? -did not tolerate Reglan by report -last office visit with [facility] advised initiation of pyridostigmine but she has been too ill since late February to start such - For acute pain - not ideal - but continue IV dilaudid prn - Zofran first line for nausea/emesis; phenergan low-dose for 2nd line use - Full liquid diet, advance as tolerated - Trial of bentyl for cramps, simethicone prn, continue antacids - Contact precautions - GI consulted - recommends repeating H. pylori stool antigen. Will defer further imaging studies to GI #Enterococcal vaginitis | Yeast infection | Chronic vaginal burning - enterococcal vaginitis identified 03/21/25 genital culture. Has had persistent vaginal burning for about 1 year. She has undergone numerous vaginal cultures and has been seen by gynecology. She denies any itching or discharge. She feels the burning sensation constantly, not only when she urinates. - Completed 7 day course of Amoxicillin on 03/31 - S/p Diflucan 150 mg PO x 1 for yeast infection - Trial hydrocortisone 1% topical ointment in the case that this is lichenoid vulvitis - patient reports improvement in the burning sensation - Recommend gynecology follow-up in outpatient setting as she was previously recommended to get a vulvar biopsy but has not yet done so #GERD - Cont PPI twice daily, Carafate 1gm QID - H. pylori stool Ag negative 2x over the last year - repeating as noted above #COVID-19 infection - 02/2025 - There are reports that COVID-19 can worsen pre-existing neurological conditions, GI conditions, etc. - Sounds as if her COVID indeed exacerbated her chronic GI issues #Hypothyroidism - TSH 3 - compensated. Continue levothyroxine #HTN - cont home meds #COPD - no exacerbation at this time. Albuterol prn VTE PPx: Lovenox - remote history of PE Dispo: Continued inpatient stay. Working on symptom control and diet advancement Updated at bedside Ordered stool study Admission and Anticipated Discharge Date Admission Date: March 30, 2025 Supervising Physician Co-Signing Physician Notes Attending Attestation - Chart reviewed, care plan d/w JOSE Comer. I agree w/ the robbins components of her documentation. Appreciate GI consultation & recs. Ubaldo Chi MD Subjective Patient seen and evaluated at bedside with her present. She reports upper abdominal pain today. She notes her lower abdominal pain is more mild today. Her vaginal burning has improved since starting hydrocortisone ointment yesterday. She continues to have mild nausea. She also continues to have diarrhea, she reports sometimes she thinks it is improving and other times she thinks it is the same frequency as it has been. We discussed trying a heating pad on her abdomen as she uses at home. No additional complaints or concerns at this time. Telemetry reviewed: SB/NSR rates 50-60s. Physical Exam Physical Exam: General: No acute distress, nondiaphoretic, well-developed, well-nourished. Skin: Warm, dry. No rashes or peripheral edema noted. Cardiac: Regular rate and rhythm without murmurs gallops or rubs. Pulm: Clear to auscultation bilaterally without wheezes, rales or rhonchi. Normal respiratory effort. 96% on room air. Abdominal: Soft, nondistended. Tender to palpation throughout abdomen, upper quadrants more tender than lower quadrants. No rebound or guarding. Bowel sounds active. Neuro: A&O x3. No focal neurological deficits. Results & Data Results & Data Vital Signs (Past 12 Hours) Vital Signs Temp Pulse Pulse Resp BP Pulse Ox O2 Del Method 04/02/25 08:06 97.9 F 68 18 150/76 H 96 Room Air 04/02/25 07:50 59 L 04/02/25 03:06 97.2 F L 67 12 131/73 97 Room Air 04/02/25 00:20 97.5 F L 59 L 12 125/67 97 Room Air Laboratory Results Reviewed CBC, BMP, cortisol PG Care Time/CCT Total # of Minutes Spent Total Time Spent with Patient: Total time spent is greater than 50% in coordination of care (as documented) at patient's floor/unit and/or counseling patient: Coding Level of Care Code 32209 SUB INP/OBS CARE 3/50MIN Diagnoses Enteritis due to Norovirus A08.11 Acute exacerbation of chronic abdominal pain R10.9; G89.29 Gastroparesis K31.84 Nausea R11.0 History of COVID-19 Z86.16 Esophageal reflux K21.9 Vaginitis N76.0"
[2025-04-03 07:04] LABS: Hematocrit (blood only) 30.9 % (37.0-47.0); Hemoglobin 9.6 g/dL (12.0-16.0); Mean Corpuscular Hemoglobin 26.0 pg (25.0-34.0); Mean Corpuscular Volume 83.7 fL (80.0-100.0); Platelet Count 183 K/uL (130-400); RDW Standard Deviation 49.7 fL (36.4-46.3); Red Blood Count 3.69 M/uL (4.20-5.40); White Blood Count 3.55 K/ul (4.8-10.8)
[2025-04-03 07:34] LABS: Anion Gap 5.0 (3-11); Blood Urea Nitrogen 4.0 mg/dl (6-23); Calcium 8.7 mg/dl (8.6-10.3); Carbon Dioxide 29.0 mmol/L (21-32); Chloride 108.0 mmol/L (98-107); Creatinine Clr Calc Pharmacy 74.3 ml/min; Glucose 86.0 mg/dl (70-99(Fasting)); Potassium 3.4 mmol/L (3.5-5.1); Sodium 142.0 mmol/L (136-145)
--- NOTE | 2025-04-03 10:20 | Gastroenterology Progress Note ---
Date of Service April 03, 2025 Assessment & Plan (1) Abdominal pain: Plan: -NPO after midnight -EGD on 04/04/25 -Consider updating CT abd/pelvis with po & IV contrast -Await H pylori stool antigen -If no findings, would suspect chronic functional abdominal pain syndrome as these symptoms are not consistent with mildly delayed gastric emptying. Could consider TCAs. -Continue PPI & antiemetics supportively Admission and Anticipated Discharge Date Admission Date: March 30, 2025 Supervising Physician Co-Signing Physician Notes I saw and examined this patient with our nurse practitioner and agree with her assessment and plan. Patient continues with pain multifocal most consistent with underlying chronic abdominal pain syndrome most likely functional. Some aspects are different including some epigastric tenderness. Await repeat CT scan. If unrevealing and pain persists will consider endoscopy. Subjective Patient is a 64 yo female with chronic abdominal pain with extensive work-up. Patient notes right sided abdominal pain and nausea. She notes poor appetite. She notes she's afraid to go to sleep because each time when she wakes up she feels sicker. Review of Systems Gastrointestinal: + abdominal pain Physical Exam Gastrointestinal (Abdomen): normal bowel sounds, soft, nontender, no hepatosplenomegaly Results & Data Results & Data Vital Signs (Past 12 Hours) Vital Signs Temp Pulse Pulse Resp BP BP Pulse Ox 04/03/25 07:39 65 04/03/25 07:11 36.7 C 64 18 155/85 H 97 04/03/25 03:31 36.3 C L 62 16 136/76 95 04/02/25 23:14 36.7 C 68 16 128/67 94 O2 Del Method 04/03/25 07:39 04/03/25 07:11 Room Air 04/03/25 03:31 Room Air 04/02/25 23:14 Room Air Laboratory Results Laboratory Results - last 48 hr 04/02/25 04/03/25 08:22 05:45 WBC 4.05 L 3.55 L RBC 3.73 L 3.69 L Hgb 9.8 L 9.6 L Hct 31.4 L 30.9 L MCV 84.2 83.7 MCH 26.3 26.0 MCHC 31.2 L 31.1 L RDW Std Deviation 48.7 H 49.7 H RDW Coeff of Sánchez 16.1 H 16.4 H Plt Count 204 183 MPV 9.8 9.7 Sodium 141 142 Potassium 3.6 3.4 L Chloride 107 108 H Carbon Dioxide 29 29 Anion Gap 5 5 BUN 4 L 4 L Creatinine 0.77 0.67 Est Cr Clr Drug Dosing 64.7 74.3 eGFR 85.02 96.34 BUN/Creatinine Ratio 5.2 L 6.0 L Glucose 97 86 Calcium 9.0 8.7 Cortisol AM Sample 17.02 PG Care Time/CCT Total # of Minutes Spent Total Time Spent with Patient: Total time spent is greater than 50% in coordination of care (as documented) at patient's floor/unit and/or counseling patient: Coding Level of Care Code 65408 SUB INP/OBS CARE 3/50MIN Diagnoses Abdominal pain R10.9 Abdominal location: unspecified location (1) Abdominal pain Abdominal location: unspecified location Qualified Code(s): R10.9 - Unspecified abdominal pain
[2025-04-03] MEDS: LORazepam Inj 0.5 MG in SYRINGE 0.25 ML IV STA (12:31)
--- NOTE | 2025-04-03 14:24 | Hospitalist Progress Note ---
"Date of Service April 03, 2025 Assessment & Plan (1) Enteritis due to Norovirus: (2) Acute exacerbation of chronic abdominal pain: (3) Gastroparesis: (4) Nausea: (5) History of COVID-19: (6) Esophageal reflux: (7) Vaginitis: Plan 64yo female with chronic abdominal pain and gastroparesis - followed by [facility] - presents with 2-3 days of severe acute on chronic upper abdominal pain along with nausea. On 03/28 a stool BioFire was positive for Norovirus. #Norovirus enteritis | Acute on chronic abdominal pain | Gastroparesis -Acute component 2nd to Norovirus infection. Chronic component - to date has had EXTENSIVE evaluation by Alok Jeff/[facility] GI - numerous CTs, EGDs, upper GI series, x-rays, gastric emptying study, blood work, porphyria work-up (twice), etc. -gastric emptying study showed mild gastroparesis in 2024, did not tolerate Reglan by report -last office visit with [facility] advised initiation of pyridostigmine but she has been too ill since late February to start such - For acute pain - not ideal - but continue IV dilaudid prn, trial of IV ativan x 1 today - Zofran first line for nausea/emesis; phenergan low-dose for 2nd line use - Full liquid diet, advance as tolerated - Trial of bentyl for cramps, simethicone prn, continue antacids - GI consulted - recommends repeating H. pylori stool antigen. Plan for EGD 04/03 Will defer further imaging studies to GI Patient reports trying nortriptyline 25mg HS and made her too tired - ? trial at lower dose Will recheck UC at pt request Suspect functional abdominal pain component #Enterococcal vaginitis | Yeast infection | Chronic vaginal burning - enterococcal vaginitis identified 03/21/25 genital culture. Has had persistent vaginal burning for about 1 year. She has undergone numerous vaginal cultures and has been seen by gynecology. She denies any itching or discharge. She feels the burning sensation constantly, not only when she urinates. Completed 7 day course of Amoxicillin on 03/31. S/p Diflucan 150 mg PO x 1 for yeast infection - Trial hydrocortisone 1% topical ointment in the case that this is lichenoid vulvitis - patient reports improvement in the burning sensation - Recommend gynecology follow-up in outpatient setting as she was previously recommended to get a vulvar biopsy but has not yet done so #GERD - Cont PPI twice daily, Carafate 1gm QID - H. pylori stool Ag negative 2x over the last year - repeating as noted above #COVID-19 infection - 02/2025 - There are reports that COVID-19 can worsen pre-existing neurological conditions, GI conditions, etc. - Sounds as if her COVID indeed exacerbated her chronic GI issues #Hypothyroidism - TSH 3 - compensated. Continue levothyroxine #HTN - cont home meds #COPD - no exacerbation at this time. Albuterol prn VTE PPx: Lovenox - remote history of PE Dispo: Continued inpatient stay. Working on symptom control and diet advancement, stable for downgrade to medical Updated at bedside Admission and Anticipated Discharge Date Admission Date: March 30, 2025 Supervising Physician Co-Signing Physician Notes Attending Attestation - Chart reviewed, care plan d/w JOSE Sprague. I agree w/ the robbins components of her documentation. Ubaldo Chi MD Subjective patient seen with at bedside reports worsening pain when she falls asleep and scared to do so - still having yellow diarrhea persverates on having another pap smear - we discussed her recent vaginal culture and appropiate treatment she received concerned she has another urinary infection - urine culture ordered states she has not tolerated nortriptyline in the past - too tired despite taking it at night attempted to discuss functional abdominal pain but patient not very receptive Review of Systems Review of Systems: All systems reviewed & are unremarkable except as noted in Subjective Physical Exam Physical Exam: General: NAD, VS as above, tearful and anxious Resp: normal respiratory effort, lungs clear to auscultation CV: RRR, no murmur, Abd: normal bowel sounds, soft, reports tenderness with mild guarding worse in epigastric region Extremities: Moves all extremities, Neuro: A&O x3, Results & Data Results & Data Vital Signs (Past 12 Hours) Vital Signs Temp Pulse Pulse Resp BP Pulse Ox O2 Del Method 04/03/25 07:39 65 04/03/25 07:11 98.1 F 64 18 155/85 H 97 Room Air 04/03/25 03:31 97.3 F L 62 16 136/76 95 Room Air Laboratory Results cbc and chemistry reviewed PG Care Time/CCT Total # of Minutes Spent Total Time Spent with Patient: Total time spent is greater than 50% in coordination of care (as documented) at patient's floor/unit and/or counseling patient: Coding Level of Care Code 94134 SUB INP/OBS CARE 3/50MIN Diagnoses Enteritis due to Norovirus A08.11 Acute exacerbation of chronic abdominal pain R10.9; G89.29 Gastroparesis K31.84 Nausea R11.0 History of COVID-19 Z86.16 Esophageal reflux K21.9 Vaginitis N76.0"
[2025-04-03] MEDS: OPTIRAY 320 100ml IV ONE (16:01)
--- NOTE | 2025-04-04 08:16 | CT Scan Report ---
EXAM: CT abd pelvis oral and IV con CLINICAL HISTORY: Right-sided abdominal pain. TECHNIQUE: CT of the abdomen and pelvis was performed with contrast, with the following protocol: axial images with, and reconstructed coronal and sagittal images. One of the following dose reduction techniques was utilized for this exam: Automated exposure control, adjustment of the mA and/or kV according to patient size, and use of iterative reconstruction. COMPARISON: Comparison is made with previous CT imaging studies 03/27/2025. FINDINGS: Abdomen: Liver: Normal in size, shape, and density. No focal lesions, cysts, or masses were identified. Hepatic vasculature is unremarkable. Gallbladder and Biliary System: The gallbladder is not visualized; cholecystectomy clips are noted. CBD appears mildly dilated, measuring 11 mm with prominence of the intrahepatic ducts likely post cholecystectomy. Pancreas: The pancreatic head, body, and tail are visualized and appear normal in size and density. No pancreatic masses or calcifications were noted. The pancreatic duct is not dilated. Spleen: A small hypodense area measuring 6 mm is noted in the splenic parenchyma, likely a granuloma. Normal in size, shape, and density. No splenic masses were identified. Kidneys and Adrenal Glands: Mild right-sided hydroureteronephrosis without evidence of distal obstruction. Focal cortical scarring in the right kidney upper pole, unchanged. Both kidneys are normal in size, shape, and position. No renal calculi. Adrenal glands are unremarkable with no evidence of masses or hyperplasia. Pelvis: Urinary Bladder: Normal in contour and wall thickness. No intraluminal lesions identified. Uterus: Not visualized. Ovaries: Not well visualized. Peritoneal and Retroperitoneal Structures: No free fluid or abnormal fluid collections were identified within the abdomen or pelvis. No lymphadenopathy was noted. Atherosclerotic calcification of the abdominal aorta. Bowel: Uncomplicated colonic diverticulosis. The rest of the visualized bowel loops are normal in caliber and appearance. No evidence of bowel obstruction or wall thickening. Bones and Soft Tissues: Degenerative osteoarthritic changes, evident by marginal bony hypertrophy and intervertebral vacuum phenomenon. Pelvic bones and soft tissues are unremarkable. No fractures or abnormal masses were identified. IMPRESSION: 1. CBD appears mildly dilated with prominence of the intrahepatic ducts likely post cholecystectomy. Unchanged. 2. Mild right-sided hydroureteronephrosis without evidence of distal obstruction. New finding. 3. Uncomplicated colonic diverticulosis, unchanged. 4. Clinical correlation is suggested. Electronically signed by Santana Harris 04-04-2025 08:16 AM
[2025-04-04] MEDS: SODIUM CHLORIDE 0.9% 1,000 ML IV SCH (10:30)
--- NOTE | 2025-04-04 10:32 | History & Physical Bridge Note ---
Date of Service April 04, 2025 History & Physical Bridge Note I have examined the patient, reviewed the History & Physical and in the interval since the performance of the History & Physical I have noted the following changes of clinical significance: no changes noted. CT yesterday did not demonstrate and GI abnormalities. There were new urologic findings of right sided hydroureteronephrosis. From a GI standpoint, will keep NPO & move forward with EGD today to assess for anything new since her last scope. If no findings, would advise consideration of urologic work-up +/- pain management. Supervising Physician Co-Signing Physician Notes I saw and examined this patient with our nurse practitioner and agree with her assessment and plan. Persistent epigastric pain. Will proceed with endoscopy to exclude peptic ulcer disease.
--- NOTE | 2025-04-04 12:45 | Hospitalist Progress Note ---
"Date of Service April 04, 2025 Assessment & Plan (1) Enteritis due to Norovirus: (2) Acute exacerbation of chronic abdominal pain: (3) Gastroparesis: (4) Nausea: (5) History of COVID-19: (6) Esophageal reflux: (7) Vaginitis: Plan 64yo female with chronic abdominal pain and gastroparesis - followed by [facility] - presents with 2-3 days of severe acute on chronic upper abdominal pain along with nausea. On 03/28 a stool BioFire was positive for Norovirus. #Norovirus enteritis | Acute on chronic abdominal pain | Gastroparesis -Acute component 2nd to Norovirus infection. Chronic component - to date has had EXTENSIVE evaluation by Alok Jeff/[facility] - numerous CTs, EGDs, upper GI series, x-rays, gastric emptying study, blood work, porphyria work-up (twice), etc. -gastric emptying study showed mild gastroparesis in 2024, did not tolerate Reglan by report -last office visit with [facility] advised initiation of pyridostigmine but she has been too ill since late February to start such - For acute pain - not ideal - but continue IV dilaudid prn. Did reposne well to ativan IV, takes xanax at home - Zofran first line for nausea/emesis; phenergan low-dose for 2nd line use - Trial of bentyl for cramps, simethicone prn, continue antacids - GI consulted - recommends repeating H. pylori stool antigen. Plan for EGD 04/04 Will defer further imaging studies to GI Patient reports trying nortriptyline 25mg HS and made her too tired - ? trial at lower dose Will recheck UC at pt request - no growth, final report to follow Suspect functional abdominal pain component - however very difficult to discuss with this with patient, not receptive CT A/P with mild hydronephrosis - discussed with urology, no surgical intervention, likely not cause of her pain. Will see her formally on consult #Enterococcal vaginitis | Yeast infection | Chronic vaginal burning - enterococcal vaginitis identified 03/21/25 genital culture. Has had persistent vaginal burning for about 1 year. She has undergone numerous vaginal cultures and has been seen by gynecology. She denies any itching or discharge. She feels the burning sensation constantly, not only when she urinates. Completed 7 day course of Amoxicillin on 03/31. S/p Diflucan 150 mg PO x 1 for yeast infection - Trial hydrocortisone 1% topical ointment in the case that this is lichenoid vulvitis - patient reports improvement in the burning sensation - Recommend gynecology follow-up in outpatient setting as she was previously recommended to get a vulvar biopsy but has not yet done so #GERD - Cont PPI twice daily, Carafate 1gm QID - H. pylori stool Ag negative 2x over the last year - repeating as noted above #COVID-19 infection - 02/2025 - There are reports that COVID-19 can worsen pre-existing neurological conditions, GI conditions, etc. - Sounds as if her COVID indeed exacerbated her chronic GI issues #Hypothyroidism - TSH 3 - compensated. Continue levothyroxine #HTN - cont home meds #COPD - no exacerbation at this time. Albuterol prn VTE PPx: Lovenox - remote history of PE Dispo: Continued inpatient stay. Working on symptom control and diet advancement, EGD today Updated at bedside 04/04 Admission and Anticipated Discharge Date Admission Date: March 30, 2025 Supervising Physician Co-Signing Physician Notes Attending Attestation - Chart reviewed, care plan d/w JOSE Sprague. I agree w/ the robbins components of her documentation. Ubaldo Chi MD Subjective patient seen sitting on the edge of the bed, no acute distress reports that her pain is more on the right and wrapping around her stomach now. She is asking about kidney stones and we discussed no stones on yesterday CT or the CT from a week ago she thinks her stools are starting to form up continues to say pain is worse than her baseline - diluadid ineffective. Thinks she has a UTI, UC pending. informed UTI would not be treated with dilaudid Review of Systems Review of Systems: All systems reviewed & are unremarkable except as noted in Subjective Physical Exam Physical Exam: General: NAD, VS as above, tearful and anxious Resp: normal respiratory effort, lungs clear to auscultation CV: RRR, no murmur, Abd: normal bowel sounds, soft, reports tenderness with mild guarding worse in epigastric region Extremities: Moves all extremities, Neuro: A&O x3, Results & Data Results & Data Vital Signs (Past 12 Hours) Vital Signs Temp Pulse Resp BP Pulse Ox O2 Del Method 04/04/25 07:30 98.2 F 67 16 136/75 95 Room Air Diagnostic Findings CT a/p reviewed PG Care Time/CCT Total # of Minutes Spent Total Time Spent with Patient: Total time spent is greater than 50% in coordination of care (as documented) at patient's floor/unit and/or counseling patient: Coding Level of Care Code 39474 SUB INP/OBS CARE 2/35MIN Diagnoses Enteritis due to Norovirus A08.11 Acute exacerbation of chronic abdominal pain R10.9; G89.29 Gastroparesis K31.84 Nausea R11.0 History of COVID-19 Z86.16 Esophageal reflux K21.9 Vaginitis N76.0"
--- NOTE | 2025-04-04 14:40 | Anesthesiology Consultation ---
Date of Service April 04, 2025 Assessment & Plan Chart Review Chart Review: Acceptable Risk for Surgery Consults Requested none ASA ASA3 Proposed Anesthesia Anesthesia Type: MAC Risk / Benefits Reviewed With: PT / POA / Parent / Guardian, Accepts Plan and Informed Consent Obtained History Surgery Operation Date: 04/04/25 16:30 Proposed Procedures p Esophagogastroduodenoscopy Dr. Mouna Freire MD Height/Weight Height: 5 ft 5 in Weight: 63.639 kg Allergies Allergy/AdvReac Type Severity Reaction Status Date / Time bacitracin Allergy Intermediate Hives Verified 04/04/25 14:34 [From Neosporin ([id number])] famotidine Allergy Intermediate Hives Verified 04/04/25 14:34 neomycin Allergy Intermediate Hives Verified 04/04/25 14:34 [From Neosporin ([id number])] polymyxin B Allergy Intermediate Hives Verified 04/04/25 14:34 [From Neosporin ([id number])] lactose AdvReac Intermediate Gastrointestinal Verified 04/04/25 14:34 Upset olmesartan AdvReac Intermediate Diarrhea Verified 04/04/25 14:34 vilanterol AdvReac Intermediate Swelling Verified 04/04/25 14:34 [From Breo Ellipta] of legs/feet and GI Upset levofloxacin AdvReac Unknown tendinopathy Verified 04/04/25 14:34 - undetermined if med was cause. Medications Home Medications Medication Instructions Recorded Confirmed Last Taken levothyroxine 88 mcg tablet 88 mcg PO QAM 02/13/23 03/30/25 03/30/25 budesonide-formoterol HFA 80 2 inh inhalation BID #30.59 grams 05/07/23 03/30/25 03/30/25 08:00 mcg-4.5 mcg/actuation aerosol inhaler (Symbicort) cyclosporine 0.09 % eye drops in a 1 drp OPB BID 08/22/23 03/30/25 03/30/25 08:00 dropperette (Cequa) propranolol 60 mg capsule,24 60 mg PO HS 10/15/24 03/30/25 03/29/25 hr,extended release pantoprazole 40 mg tablet,delayed 40 mg PO BID #60 tabs 10/20/24 03/30/25 03/30/25 08:00 release sucralfate 1 gram tablet 1 g PO QID #90 tabs 01/26/25 03/30/25 03/30/25 08:00 bupropion HCl 150 mg tablet,12 hr 150 mg PO BID #60 ea 02/16/25 03/30/25 03/30/25 08:00 sustained-release gabapentin 100 mg capsule 100 mg PO BID #60 caps 02/16/25 03/30/25 03/30/25 08:00 hydromorphone 2 mg tablet 4 mg (2 x 2 mg) PO Q3RWA PRN pain 02/16/25 03/30/25 Unknown (Dilaudid) #30 tabs pyridostigmine bromide 60 mg tablet 60 mg PO TID 03/01/25 03/30/25 Unknown azelastine 137 mcg (0.1 %) nasal 1 spray intranasal BID PRN 03/05/25 03/30/25 Unknown spray Congestion promethazine 25 mg tablet 25 - 50 mg (1 - 2 x 25 mg) PO Q6H 03/08/25 03/30/25 Unknown PRN nausea and vomiting #20 tabs albuterol sulfate 90 mcg/actuation 1 inh inhalation Q4H PRN shortness 03/11/25 03/30/25 Unknown aerosol inhaler of breath or wheezing #8.5 grams estradiol 0.01% (0.1 mg/gram) 1 g vaginal [id number] PRN NEEDED PER 03/24/25 03/30/25 03/29/25 vaginal cream PT ondansetron 4 mg disintegrating 4 mg PO Q8H PRN nausea and 03/29/25 03/30/25 Unknown tablet vomiting #20 tabs amoxicillin 500 mg capsule 500 mg PO TID 03/30/25 03/30/25 03/30/25 08:00 Active Medications Generic Name Dose Route Start Last Admin Trade Name Freq PRN Reason Stop Dose Admin Acetaminophen 1,000 mg 04/01/25 05:39 04/03/25 09:18 Acetaminophen 500 Mg Tab PO 04/29/25 18:41 1,000 mg Q6H PRN Administration Pain or Fever Al Hydrox/Mg Hydrox/Simethicone 15 ml 03/30/25 18:42 04/01/25 20:53 Aluminum/Magnesium Susp 30 Ml Udc PO 04/29/25 18:41 15 ml Q4H PRN Administration Dyspepsia Bupropion HCl 150 mg 03/30/25 21:00 04/04/25 09:14 Bupropion Sr 150 Mg Tabcr PO 04/29/25 20:59 150 mg BID BREANNA Administration Dicyclomine HCl 10 mg 03/30/25 21:00 04/04/25 08:03 Dicyclomine Hcl 10 Mg Cap PO 04/29/25 20:59 10 mg TID BREANNA Administration Gabapentin 100 mg 03/30/25 21:00 04/04/25 09:14 Gabapentin 100 Mg Cap PO 04/29/25 20:59 100 mg BID BREANNA Administration Hydrocortisone 1 appln 04/01/25 21:00 04/04/25 08:04 Hydrocortisone 1% Oint 30 Gm Tube EXT 05/01/25 20:59 1 appln BID BREANNA Administration Hydromorphone HCl 0.25 mg 03/30/25 18:42 04/04/25 12:18 Hydromorphone Inj 0.5 Mg/0.5 Ml Syr IV 04/13/25 18:41 0.25 mg Q3H PRN Administration Pain Promethazine HCl 6.25 mg in 50.25 mls @ 201 mls/hr 03/30/25 18:42 04/04/25 08:30 Phenergan IV 04/29/25 18:41 Infused Q6H PRN Infusion Nausea And Vomiting Sodium Chloride 1,000 mls @ 80 mls/hr 04/04/25 10:30 04/04/25 10:30 Nss IV 04/07/25 10:29 80 mls/hr .[id number] BREANNA Administration Levothyroxine Sodium 88 mcg 03/31/25 06:30 04/04/25 05:54 Levothyroxine Sodium 88 Mcg Tablet PO 04/30/25 06:29 Not Given DAILYBB BREANNA Melatonin 3 mg 03/30/25 18:42 04/03/25 20:13 Melatonin 3 Mg Tab PO 04/29/25 18:41 3 mg HS PRN Administration Sleep Miscellaneous 1 each 03/31/25 00:00 04/04/25 07:28 Budesonide/Formoterol Fumarate 80/4.5 - Order Awaiting Action N/A 04/30/25 00:00 Not Given QS BREANNA Protocol Miscellaneous 1 each 03/31/25 00:00 04/04/25 07:28 Estradiol 0.01 % Cream - Order Awaiting Action N/A 04/30/25 00:00 Not Given QS BREANNA Ondansetron HCl 4 mg 03/30/25 18:42 04/04/25 03:52 Ondansetron Inj 2 Mg/Ml 2 Ml Vial IV 04/29/25 18:41 4 mg Q6H PRN Administration Nausea Pantoprazole Sodium 40 mg 03/30/25 21:00 04/04/25 09:14 Pantoprazole 40 Mg Tab PO 04/29/25 20:59 40 mg BID BREANNA Administration Polyethylene Glycol 17 gm 04/01/25 09:00 04/04/25 08:03 Polyethylene (Miralax) 17 Gm Pack PO 05/01/25 08:59 Not Given BID BREANNA Propranolol HCl 60 mg 03/30/25 21:00 04/03/25 20:13 Propranolol Hcl 60 Mg La Cap PO 04/29/25 20:59 60 mg HS BREANNA Administration Simethicone 80 mg 03/30/25 18:42 04/03/25 09:18 Simethicone 80 Mg Chew PO 04/29/25 18:41 80 mg Q6H PRN Administration Flatulence/gas Sucralfate 1 gm 03/30/25 18:42 04/04/25 12:11 Sucralfate 1 Gm/10 Ml Udc PO 04/29/25 18:41 Not Given QID BREANNA Past Medical History Medical History Chronic anemia Chronic pain syndrome Intractable abdominal pain Acute exacerbation of chronic abdominal pain Anxiety and depression Primary hypothyroidism Essential hypertension Urinary tract infection abx completed 06/28 or 06/30/23 - feeling better, all symptoms gone except some pressure. Pre op edu rev. Diverticulosis hx Gastritis History of gastric polyp History of colon polyps Vertigo none for over a month Kidney stones current Renal mass [place] [facility] aware, monitoring Paresthesia of upper extremity sometimes arms Diarrhea current : on occ /finished abx recently. History of Helicobacter pylori infection Hx of Clostridium difficile infection Remote hx approximately 30 years ago History of COVID-19 03/19/2023 (PCR, [place]) > resolved 11/2021- fatigue, congestion, cough, sore throat > resolved pt reports has had a total of 3 times : 1st time in 2019 ? Hx of melanoma of skin Pulmonary embolism Remote hx approximately 30 years ago, after SUMAN (blood thinners x 3 months) Acute diverticulitis listed in differential diagnosis 04/14/23 by hospitalist, not included on discharge summary Sciatica hx COPD (chronic obstructive pulmonary disease) well controlled per pt, rare res inh use Mild reactive airways disease Depression with anxiety Esophageal reflux Fibromyalgia Hypertension Irritable bowel syndrome Hypothyroidism Hyperlipidemia History of asthma Past Family History Family History Mother Diabetes Father Heart disease Other Asthma Cancer Gallbladder disease Hypertension Stroke Denies family history of Ovarian cancer Myocardial infarction Breast cancer Colorectal cancer Colonic polyp Uterine cancer Past Surgical History Surgical History History of lithotripsy History of cystoscopy Hx of vascular surgery Dr Moraels [facility] 07/2022 Distal LT GSV accessed under ultrasound guidance with placement of 4Fr sheath History of esophagogastroduodenoscopy (EGD) Hx of cataract extraction Hx of melanoma excision stomach S/P dilation and curettage History of cryosurgery History of colonoscopy (10/12/19) 4 polyps removed, [facility], Dr. Roque S/P tonsillectomy S/P sinus surgery S/P SUMAN-BSO S/P laparoscopic cholecystectomy S/P appendectomy Social History Smoking Status: Former smoker Do You Dip or Chew Tobacco: No Hx Alcohol Use: No alcohol intake frequency: 0-2 drinks per day Hx Substance Use: No substance use type: does not use Physical Exam Vital Signs Last Vital Signs Temp 36.8 C 04/04/25 07:30 Pulse 67 04/04/25 07:30 Resp 16 04/04/25 07:30 BP 136/75 04/04/25 07:30 Pulse Ox 95 04/04/25 07:30 O2 Del Method Room Air 04/04/25 07:30 Constitutional no acute distress ENMT Mouth: + dentures; no TMJ abnormality Thyromental Distance: < 3.5 Finger Breadths Mallampati Class: III Neck normal visual inspection Respiratory normal respiratory effort Auscultation: lungs clear to auscultation bilaterally Cardiovascular Rate/Rhythm: regular rate and regular rhythm Musculoskeletal Spine: normal cervical ROM Neurologic moves all extremities Psychiatric Orientation: alert and oriented x 3 Testing Laboratory Results 04/03/25 05:45 04/03/25 05:45 PT 11.1 Seconds (9.0-12.0) 03/30/25 11:45 INR 1.1 (0.9-1.1) 03/30/25 11:45 Urine Color Yellow 03/30/25 13:43 Urine Appearance Clear (Clear) 03/30/25 13:43 Urine pH 7.0 (4.5-7.5) 03/30/25 13:43 Ur Specific [place] 1.005 (1.000-1.030) 03/30/25 13:43 Urine Protein Negative (Negative) 03/30/25 13:43 Urine Glucose (UA) Negative (Negative) 03/30/25 13:43 Urine Ketones Negative (Negative) 03/30/25 13:43 Urine Nitrite Negative (Negative) 03/30/25 13:43 Ur Leukocyte Esterase Negative (Negative) 03/30/25 13:43 04/03/25 12:45 Urine Culture - Preliminary Urine,Clean Catch No growth - Less than 1,000 colonies/mL, Final report to follow.
[2025-04-04] MEDS: SODIUM CHLORIDE 0.9% 500 ML IV SCH (14:46)
--- NOTE | 2025-04-04 14:55 | Urology Consultation ---
<Statement entered by Devin Schmitz MD - 04/04/25 20:59> Chart reviewed plan reviewed and agree as written. Date of Consultation April 04, 2025 Assessment & Plan (1) Hydronephrosis: Plan 64yo female admitted with acute on chronic abdominal pain undergoing work-up by GI - Urology consulted for mild right hydronephrosis per patient request. She is afebrile and hemodynamically stable. Labs reviewed from yesterday - WBCs 3.55, hemoglobin 9.6, creatinine stable 0.67. Urine culture preliminary no growth. CT abdomen pelvis 04/03/25 noted mild right sided hydronephrosis. There is no obvious focal obstruction or stones. There is mild dilation of bilateral ureters to the bladder. No acute intervention indicated. Recommend checking bladder scans/PVRs to ensure she is emptying the bladder. If PVR >400ml, would recommend Bearden catheter placement. Continue supportive care and management per primary team/gastroenterology. Will arrange outpatient visit and follow-up imaging with our service. Urology will sign-off, please contact us with any further questions/concerns or changes in patient's status. History of Present Illness Attending Physician: Ubaldo Chi MD History of Present Illness 64-year-old female with history of chronic abdominal pain and gastroparesis admitted 03/30/25 with acute on chronic upper abdominal pain along with nausea. She is admitted to medicine service, gastroenterology following. Scheduled for EGD later today. Urology was consulted for mild right hydronephrosis per patient request. She underwent CT abdomen pelvis imaging yesterday. CT abdomen pelvis 04/03/2025 notes mild right sided hydronephrosis, no obvious focal obstruction or stones. Urinalysis 03/30/2025 was negative for signs of infection or blood. Urine culture 04/03/2025 preliminary no growth. Patient was seen at bedside today. Awake and resting in bed on arrival. No acute distress. Reports ongoing abdominal pain, more on the right and wrapping around to her back. She is well known to the urology service, follows with Dr. Park. History of renal mass likely RCC status post ablation at outlying facility. Cystoscopy in December 2024 was found to have small nodular appearing lesion and underwent sampling/biopsy and removal. Pathology came back as benign likely leiomyoma. Allergies Allergy/AdvReac Type Severity Reaction Status Date / Time bacitracin Allergy Intermediate Hives Verified 04/04/25 14:34 [From Neosporin ([id number])] famotidine Allergy Intermediate Hives Verified 04/04/25 14:34 neomycin Allergy Intermediate Hives Verified 04/04/25 14:34 [From Neosporin ([id number])] polymyxin B Allergy Intermediate Hives Verified 04/04/25 14:34 [From Neosporin ([id number])] lactose AdvReac Intermediate Gastrointestinal Verified 04/04/25 14:34 Upset olmesartan AdvReac Intermediate Diarrhea Verified 04/04/25 14:34 vilanterol AdvReac Intermediate Swelling Verified 04/04/25 14:34 [From Breo Ellipta] of legs/feet and GI Upset levofloxacin AdvReac Unknown tendinopathy Verified 04/04/25 14:34 - undetermined if med was cause. Home Medications Medication Instructions Recorded Confirmed Type levothyroxine 88 mcg tablet 88 mcg PO QAM 02/13/23 03/30/25 History budesonide-formoterol HFA 80 2 inh inhalation BID #30.59 grams 05/07/23 03/30/25 Rx mcg-4.5 mcg/actuation aerosol inhaler (Symbicort) cyclosporine 0.09 % eye drops in a 1 drp OPB BID 08/22/23 03/30/25 History dropperette (Cequa) propranolol 60 mg capsule,24 60 mg PO HS 10/15/24 03/30/25 History hr,extended release pantoprazole 40 mg tablet,delayed 40 mg PO BID #60 tabs 10/20/24 03/30/25 Rx release sucralfate 1 gram tablet 1 g PO QID #90 tabs 01/26/25 03/30/25 Rx bupropion HCl 150 mg tablet,12 hr 150 mg PO BID #60 ea 02/16/25 03/30/25 Rx sustained-release gabapentin 100 mg capsule 100 mg PO BID #60 caps 02/16/25 03/30/25 Rx hydromorphone 2 mg tablet 4 mg (2 x 2 mg) PO Q3RWA PRN pain 02/16/25 03/30/25 Rx (Dilaudid) #30 tabs pyridostigmine bromide 60 mg tablet 60 mg PO TID 03/01/25 03/30/25 History azelastine 137 mcg (0.1 %) nasal 1 spray intranasal BID PRN 03/05/25 03/30/25 History spray Congestion promethazine 25 mg tablet 25 - 50 mg (1 - 2 x 25 mg) PO Q6H 03/08/25 03/30/25 Rx PRN nausea and vomiting #20 tabs albuterol sulfate 90 mcg/actuation 1 inh inhalation Q4H PRN shortness 03/11/25 03/30/25 Rx aerosol inhaler of breath or wheezing #8.5 grams estradiol 0.01% (0.1 mg/gram) 1 g vaginal 3XWK PRN NEEDED PER 03/24/25 03/30/25 History vaginal cream PT ondansetron 4 mg disintegrating 4 mg PO Q8H PRN nausea and 03/29/25 03/30/25 Rx tablet vomiting #20 tabs amoxicillin 500 mg capsule 500 mg PO TID 03/30/25 03/30/25 History Patient History Medical History Chronic anemia Chronic pain syndrome Intractable abdominal pain Acute exacerbation of chronic abdominal pain Anxiety and depression Primary hypothyroidism Essential hypertension Urinary tract infection abx completed 06/28 or 06/30/23 - feeling better, all symptoms gone except some pressure. Pre op edu rev. Diverticulosis hx Gastritis History of gastric polyp History of colon polyps Vertigo none for over a month Kidney stones current Renal mass [place] [facility] aware, monitoring Paresthesia of upper extremity sometimes arms Diarrhea current : on occ /finished abx recently. History of Helicobacter pylori infection Hx of Clostridium difficile infection Remote hx approximately 30 years ago History of COVID-19 03/19/2023 ([place], [place]) > resolved 11/2021- fatigue, congestion, cough, sore throat > resolved pt reports has had a total of 3 times : 1st time in 2019 ? Hx of melanoma of skin Pulmonary embolism Remote hx approximately 30 years ago, after SUMAN (blood thinners x 3 months) Acute diverticulitis listed in differential diagnosis 04/14/23 by hospitalist, not included on discharge summary Sciatica hx COPD (chronic obstructive pulmonary disease) well controlled per pt, rare res inh use Mild reactive airways disease Depression with anxiety Esophageal reflux Fibromyalgia Hypertension Irritable bowel syndrome Hypothyroidism Hyperlipidemia History of asthma Surgical History History of lithotripsy History of cystoscopy Hx of vascular surgery Dr Morales [facility] 07/2022 Distal LT GSV accessed under ultrasound guidance with placement of 4Fr sheath History of esophagogastroduodenoscopy (EGD) Hx of cataract extraction Hx of melanoma excision stomach S/P dilation and curettage History of cryosurgery History of colonoscopy (10/12/19) 4 polyps removed, [facility] GI, Dr. Roque S/P tonsillectomy S/P sinus surgery S/P SUMAN-BSO S/P laparoscopic cholecystectomy S/P appendectomy Family History Mother Diabetes Father Heart disease Other Asthma Cancer Gallbladder disease Hypertension Stroke Denies family history of Ovarian cancer Myocardial infarction Breast cancer Colorectal cancer Colonic polyp Uterine cancer Social History Smoking Status: Former smoker Tobacco Type: Cigarettes Age Started Using Tobacco: 18; Age Quit Using Tobacco: 58; Second Hand Exposure: No; Do You Dip or Chew Tobacco: No; Hx Alcohol Use: No Hx Substance Use: No Preferred Language: Georgian Communication Ability: Effective Visual Impairment: No Limitations Hearing Ability: Normal Fire Marshal Required: No Beliefs That Will Affect Care: None marital status: Current Living Situation: Spouse Current Living Situation Comment: [facility] current occupational status: disabled Feels Safe at Home: Yes Childhood Exposure to Second-Hand Smoke: Yes Dental Care, Regularly: Yes Seatbelt Use: always Sunscreen Use: Yes Do you think of yourself as: straight/heterosexual Sexual Activity: has been sexually active within the last 12 months Assistive Devices: Cane and Walker Review of Systems Review of Systems: All systems reviewed & are unremarkable except as noted in HPI & below Physical Exam Constitutional: no acute distress Respiratory: no respiratory distress and no labored breathing Musculoskeletal: Head/Neck/Chest: normocephalic Neurologic: awake Psychiatric: A+Ox3, euthymic affect Results & Data Vital Signs (Past 12 Hours) Vital Signs Temp Pulse Resp BP Pulse Ox O2 Del Method 04/04/25 07:30 36.8 C 67 16 136/75 95 Room Air PG Care Time/CCT Total # of Minutes Spent Total Time Spent with Patient: Total time spent is greater than 50% in coordination of care (as documented) at patient's floor/unit and/or counseling patient: Coding Level of Care Code 32373 INT INP/OBS CARE MIN Diagnoses Hydronephrosis N13.30
--- NOTE | 2025-04-04 15:59 | GI REPORT ---
[facility] Patient: IRAIS MCCARTHY : 1960 Sex at : Female Age: 64 Years Procedure: Upper GI endoscopy Date: 04/04/2025 Attending Physician: Javi Freire MD Referring MD: Jay Villarreal; Ubaldo Chi Indications: - Epigastric abdominal pain Medications: - Monitored Anesthesia Care Complications: - No immediate complications. Procedure: - Prior to the procedure, a History and Physical was performed, and patient medications and allergies were reviewed. The patient's tolerance of previous anesthesia was also reviewed. The risks and benefits of the procedure and the sedation options and risks were discussed with the patient. All questions were answered, and informed consent was obtained. [Anticoagulant Agents] [Days Prior to Procedure]. [ASA Grade]. After reviewing the risks and benefits, the patient was deemed in satisfactory condition to undergo the procedure. - The egd scope was introduced through the mouth and advanced to the second part of the duodenum. - The upper GI endoscopy was accomplished without difficulty. - The patient tolerated the procedure well. Findings: - The examined esophagus was normal. - Patchy moderate inflammation characterized by erythema was found in the gastric antrum. Biopsies were taken with a cold forceps for Helicobacter pylori testing. - Multiple sessile fundic gland polyps were found in the gastric body and in the gastric fundus. - The examined duodenum was normal. Impression: - Normal esophagus. - Gastritis, characterized by erythema. Biopsied. - Multiple fundic gland polyps. - Normal examined duodenum. Recommendation: - Resume previous diet. - Patient has a contact number available for emergencies. The signs and symptoms of potential delayed complications were discussed with the patient. Return to normal activities tomorrow. Written discharge instructions were provided to the patient. Procedure Code(s): - 85285, Esophagogastroduodenoscopy, flexible, transoral; with biopsy, single or multiple Diagnosis Code(s): - R10.13, Epigastric pain - K29.70, Gastritis, unspecified, without bleeding - K31.7, Polyp of stomach and duodenum CPT(R) - 2024 copyright [employer]. All Rights Reserved. The CPT codes, CCI edits and ICD codes generated are intended as suggestions and were generated based on input data. These codes are preliminary and upon creping machine operator helper review may be revised to meet current compliance and payer requirements. The provider is responsible for the final determination of appropriate codes, and modifiers. Javi Freire MD This document has been electronically signed. Note Initiated:04/04/2025 Note Completed:04/04/2025 3:58 PM \\[email or web address]\[email or web address]\Results\LIVE\[id number].[email or web address]
--- NOTE | 2025-04-04 15:59 | Anesthesiology Progress Note ---
Date of Service April 04, 2025 Anesthesia Post Procedure Vital Signs Vital Signs: Temp Pulse Resp BP BP Pulse Ox O2 Del Method 04/04/25 15:54 72 18 143/60 H 98 Room Air 04/04/25 15:39 72 16 139/63 97 Room Air 04/04/25 15:24 74 16 131/55 L 97 Room Air 04/04/25 14:37 36.8 C 71 16 151/61 H 97 Room Air 04/04/25 07:30 36.8 C 67 16 136/75 95 Room Air 04/03/25 20:49 Room Air 04/03/25 20:49 36.9 C 60 18 145/68 H 96 Room Air 04/03/25 20:10 36.6 C 64 18 134/85 98 Room Air Pain Intensity Lower Abdomen: Pain Intensity: 8 Transfer of Care Handoff Completed per policy Notes Mental Status: alert / awake / arousable Patient Amnestic to Procedure: Yes Nausea / Vomiting: adequately controlled Pain: adequately controlled Airway Patency, RR, SpO2: stable & adequate BP & HR: stable & adequate Hydration State: stable & adequate Anesthetic Complications: no major complications apparent
[2025-04-04] MEDS: LIDOCAINE 2% 2 ML VIAL/AMP(20MG/ML) INFIL ONE (16:22)
[2025-04-04] MEDS: PROPOFOL IV EMULSION 10 MG/ML 20 ML VIAL IV ONE (16:22)
[2025-04-04] MEDS: BUDESONIDE/FORMOTEROL FUMARATE 80/4.5 60 PUFFS/INHALER INH SCH (20:25)
[2025-04-04] MEDS ORDERED: BUDESONIDE/FORMOTEROL FUMARATE 80/4.5 60 PUFFS/INHALER INH SCH (21:00)
[2025-04-04] MEDS: HYDROmorphone INJ 0.5 MG/0.5 ML SYR IV STA (21:56)
[2025-04-05] MEDS: ESTRACE VAG CREAM 0.01% 42.5 GM PV SCH (09:55)
--- NOTE | 2025-04-05 10:11 | Gastroenterology Progress Note ---
Date of Service April 05, 2025 Assessment & Plan (1) Abdominal pain: Plan: -Mesenteric doppler US ordered -If no findings, would aim to address from a pain management standpoint with outpatient follow-up with her team in [place]. Admission and Anticipated Discharge Date Admission Date: March 30, 2025 Supervising Physician Co-Signing Physician Notes I saw and examined this patient with our nurse practitioner and agree with her assessment and plan. Patient with persistent pain in multiple sites. Endoscopy was unrevealing biopsies for H. pylori are pending. Suspect chronic abdominal pain syndrome likely functional with an element of somatic cessation. Apparently has not been able to tolerate SSRIs or tricyclic antidepressants. [facility] who raised the possibility of SMA syndrome based on prior imaging. Recommend mesenteric Doppler study to assess function of mesenteric branches and SMA specifically. If unrevealing I believe the best option is for her to be referred back to [facility] either after discharge or through transfer. Subjective Patient is a 64 yo female with chronic abdominal pain. She met with Dr. Freire this morning. EGD and CT scan without GI abnormalities to explain her symptoms. She is following in [place] for this and there was concern for SMA syndrome. Patient continues with discomfort. She reportedly has been on TCAs for this pain in the past. No new GI symptoms. Review of Systems Gastrointestinal: + abdominal pain Results & Data Results & Data Vital Signs (Past 12 Hours) Vital Signs Temp Pulse Resp BP Pulse Ox O2 Del Method 04/05/25 08:00 36.8 C 70 18 184/89 H 98 Room Air 04/05/25 00:05 36.7 C 64 18 123/73 96 Room Air PG Care Time/CCT Total # of Minutes Spent Total Time Spent with Patient: Total time spent is greater than 50% in coordination of care (as documented) at patient's floor/unit and/or counseling patient: Coding Level of Care Code 84648 SUB INP/OBS CARE 2/35MIN Diagnoses Abdominal pain R10.9 Abdominal location: unspecified location (1) Abdominal pain Abdominal location: unspecified location Qualified Code(s): R10.9 - Unspecified abdominal pain
--- NOTE | 2025-04-05 14:12 | Hospitalist Progress Note ---
"Date of Service April 05, 2025 Assessment & Plan (1) Enteritis due to Norovirus: (2) Acute exacerbation of chronic abdominal pain: (3) Gastroparesis: (4) Nausea: (5) History of COVID-19: (6) Esophageal reflux: (7) Vaginitis: Plan 64yo female with chronic abdominal pain and gastroparesis - followed by [facility] - presents with 2-3 days of severe acute on chronic upper abdominal pain along with nausea. On 03/28 a stool BioFire was positive for Norovirus. #Norovirus enteritis | Acute on chronic abdominal pain | Gastroparesis -Acute component 2nd to Norovirus infection. Chronic component - to date has had EXTENSIVE evaluation by [facility] GI - numerous CTs, EGDs, upper GI series, x-rays, gastric emptying study (mild gastroparesis in 2024), blood work, porphyria work-up (twice), etc. Last office visit with [facility] advised initiation of pyridostigmine but she has been too ill since late February to start such - For acute pain - not ideal - but continue IV dilaudid prn. Did respond well to ativan IV, takes xanax at home - this is ordered - Zofran first line for nausea/emesis; phenergan low-dose for 2nd line use - Trial of bentyl for cramps, simethicone prn, continue antacids - GI consulted - H. pylori stool antigen - negative. Plan for EGD 04/04 - no acute process, bx pending for H. pylori. Mesenteric artery US today Patient reports trying nortriptyline 25mg HS and made her too tired - ? trial at lower dose Will recheck UC at pt request - no growth, final report to follow Suspect functional abdominal pain component - however very difficult to discuss with this with patient, not receptive CT A/P with mild hydronephrosis - discussed with urology, no surgical intervention, likely not cause of her pain. Consulted - recommend check PVR (this was 1) and OP follow up Will check Iron studies, B12, folate and Vit D as patient remains in patient #Enterococcal vaginitis | Yeast infection | Chronic vaginal burning - enterococcal vaginitis identified 03/21/25 genital culture. Has had persistent vaginal burning for about 1 year. She has undergone numerous vaginal cultures and has been seen by gynecology. She denies any itching or discharge. She feels the burning sensation constantly, not only when she urinates. Completed 7 day course of Amoxicillin on 03/31. S/p Diflucan 150 mg PO x 1 for yeast infection - Trial hydrocortisone 1% topical ointment in the case that this is lichenoid vulvitis - patient reports improvement in the burning sensation - Recommend gynecology follow-up in outpatient setting as she was previously recommended to get a vulvar biopsy but has not yet done so Discussed with gynecology - if repeat culture needed does not need a speculum exam #GERD - Cont PPI twice daily, Carafate 1gm QID - H. pylori stool Ag negative 2x over the last year - repeating negative this admission as well #COVID-19 infection - 02/2025 - There are reports that COVID-19 can worsen pre-existing neurological conditions, GI conditions, etc. - Sounds as if her COVID indeed exacerbated her chronic GI issues #Hypothyroidism - TSH 3 - compensated. Continue levothyroxine #HTN - cont home meds #COPD - no exacerbation at this time. Albuterol prn VTE PPx: Lovenox - remote history of PE Dispo: Continued inpatient stay. Working on symptom control and diet advancement, mesenteric artery US today Follow up on dischargee: GI, urology, SKATES OPERATOR Updated at bedside 04/04 & 04/05 Admission and Anticipated Discharge Date Admission Date: March 30, 2025 Supervising Physician Co-Signing Physician Notes PA Supervision Note: I did not personally see or examine the patient today, but I verified all robbins points of JOSE Sprague's assessment and plan with the following exceptions/additions: None Subjective Patient seen sitting at the edge of the bed, present at bedside patient frustrated with not getting answers, reassured her that we know that she is in pain and continuing to look for causes but dont have a magic wand to make it all go away we discussed her negative EGD and her discussion with urology on palpation, it seems as if she has trigger points on her right side. We discussed utilizing her xanax more often to try to calm the emotional distress of all her pain. Once there was a fix for that she complains of pelvic pain. Pain is not worsened by eating she is unaware of what her bowel movement looked like this morning Review of Systems Review of Systems: All systems reviewed & are unremarkable except as noted in Subjective Physical Exam Physical Exam: General: NAD, VS as above, tearful and anxious Resp: normal respiratory effort, lungs clear to auscultation CV: RRR, no murmur, Abd: normal bowel sounds, soft, tenderness over the epigastric region. Pain on her right side is higher than GB area - has focal trigger points that are much more tender. Back: no CVA tenderness Extremities: Moves all extremities, Neuro: A&O x3, Results & Data Results & Data Vital Signs (Past 12 Hours) Vital Signs Temp Pulse Resp BP Pulse Ox O2 Del Method 04/05/25 08:00 98.2 F 70 18 184/89 H 98 Room Air 04/05/25 07:30 Room Air PG Care Time/CCT Total # of Minutes Spent Total Time Spent with Patient: Total time spent is greater than 50% in coordination of care (as documented) at patient's floor/unit and/or counseling patient: Coding Level of Care Code 60336 SUB INP/OBS CARE 3/50MIN Diagnoses Enteritis due to Norovirus A08.11 Acute exacerbation of chronic abdominal pain R10.9; G89.29 Gastroparesis K31.84 Nausea R11.0 History of COVID-19 Z86.16 Esophageal reflux K21.9 Vaginitis N76.0"
--- NOTE | 2025-04-05 16:06 | Ultrasound Report ---
DOPPLER ULTRASOUND OF THE MESENTERIC VASCULATURE CLINICAL HISTORY: Generalized abdominal pain. COMPARISON STUDY: Abdominal CT dated 04/03/2025. FINDINGS: Real-time, grayscale and color Doppler sonography of the mesenteric vasculature is performe d. The abdominal aorta is normal in caliber noting atherosclerotic plaque and irregularity. The abdom inal aorta is patent with velocities measuring up to 66 cm/s. The celiac trunk and superior mesenteri c artery are patent. Velocities at the origin of the celiac artery measure up to 157 cm/s, and veloci ties within the proximal superior mesenteric artery measure up to 173 cm/s. Both vessels were shown t o be widely patent on the 04/03/[address] The inferior mesenteric artery is not well-visuali zed but appears patent with velocities measuring up to 103 cm/s. This vessel was also shown to be pat ent on the recent abdominal CT. IMPRESSION: Normal Doppler examination of the mesenteric vasculature. Dictated: 04/05/2025 1:47 PM Transcribed: 04/05/2025 1:56 PM Shin [id number] [email or web address] Electronically signed by: Tu Diez M.D. 04/05/2025 4:05 PM
[2025-04-06 07:14] LABS: Folate (Folic Acid),Ser orPlas 10.22 ng/ml (>5.38)
[2025-04-06 07:15] LABS: Vitamin B12 314.0 pg/ml (180-914)
[2025-04-06 07:17] LABS: Iron 16.0 mcg/dl (35-150); Total Iron Binding Cap Calc 378.0 mcg/dl (250-450); Transferrin 270.0 mg/dl (200-360); Transferrin (FE) Percent Satur 4.0 % (15-50)
[2025-04-06 07:38] LABS: Ferritin 8.5 ng/ml (8-388)
[2025-04-06] MEDS: IRON SUCROSE 300 MG in SODIUM CHLORIDE 0.9% 250 ML IV ONE (08:58)
--- NOTE | 2025-04-06 09:09 | Gastroenterology Progress Note ---
Date of Service April 06, 2025 Assessment & Plan (1) Acute exacerbation of chronic abdominal pain: Plan: Persistent pain without clear etiology most consistent with functional chronic abdominal pain syndrome. Mesenteric Doppler studies were normal endoscopy was normal biopsies pending for H. pylori. At this point recommend that she follow- up with her primary GI team at the [facility]. Generally would recommend a trial of a tricyclic such as amitriptyline or an SSRI such as Cymbalta for chronic symptoms however she has tried these in the past and has not tolerated them well. Admission and Anticipated Discharge Date Admission Date: March 30, 2025 Subjective Still with chronic pain no significant change. No vomiting no shortness of breath no chest pain Physical Exam Physical Exam: No acute distress Respiratory rate regular Cardiac rhythm regular Abdomen soft epigastric tenderness no change Results & Data Results & Data Vital Signs (Past 12 Hours) Vital Signs Temp Pulse Resp BP Pulse Ox O2 Del Method 04/06/25 08:43 36.5 C 70 18 147/76 H 98 Room Air 04/05/25 22:53 36.4 C L 60 16 150/77 H 97 Room Air 04/05/25 21:42 Room Air 04/05/25 21:36 59 L 132/69 Laboratory Results Laboratory Results - last 48 hr 04/02/25 04/06/25 Unknown 05:41 Iron 16 L TIBC 378 Transferrin 270 Transferrin % Sat 4 L Ferritin 8.5 Vitamin B12 314 25-OH Vitamin D Total 39.3 Folate 10.22 Stool H. pylori Ag SEE NOTE Diagnostic Findings Mesenteric US 04/05/25 08:18 DOPPLER ULTRASOUND OF THE MESENTERIC VASCULATURE CLINICAL HISTORY: Generalized abdominal pain. COMPARISON STUDY: Abdominal CT dated 04/03/2025. FINDINGS: Real-time, grayscale and color Doppler sonography of the mesenteric vasculature is performed. The abdominal aorta is normal in caliber noting atherosclerotic plaque and irregularity. The abdominal aorta is patent with velocities measuring up to 66 cm/s. The celiac trunk and superior mesenteric artery are patent. Velocities at the origin of the celiac artery measure up to 157 cm/s, and velocities within the proximal superior mesenteric artery measure up to 173 cm/s. Both vessels were shown to be widely patent on the 04/03/[address] The inferior mesenteric artery is not well-visualized but appears patent with velocities measuring up to 103 cm/s. This vessel was also shown to be patent on the recent abdominal CT. IMPRESSION: Normal Doppler examination of the mesenteric vasculature. Dictated: 04/05/2025 1:47 PM Transcribed: 04/05/2025 1:56 PM Shin [id number] [email or web address] Electronically signed by: Tu Diez M.D. 04/05/2025 4:05 PM PG Care Time/CCT Total # of Minutes Spent Total Time Spent with Patient: Total time spent is greater than 50% in coordination of care (as documented) at patient's floor/unit and/or counseling patient: Coding Level of Care Code 01863 SUB INP/OBS CARE 2/35MIN Diagnoses Acute exacerbation of chronic abdominal pain R10.9; G89.29
--- NOTE | 2025-04-06 11:22 | Hospitalist Progress Note ---
"Date of Service April 06, 2025 Assessment & Plan (1) Enteritis due to Norovirus: (2) Acute exacerbation of chronic abdominal pain: (3) Gastroparesis: (4) Nausea: (5) History of COVID-19: (6) Esophageal reflux: (7) Vaginitis: Plan 64yo female with chronic abdominal pain and gastroparesis - followed by [facility] - presents with 2-3 days of severe acute on chronic upper abdominal pain along with nausea. On 03/28 a stool BioFire was positive for Norovirus. #Norovirus enteritis | Acute on chronic abdominal pain | Gastroparesis -Acute component 2nd to Norovirus infection. Chronic component - to date has had EXTENSIVE evaluation by Alok Jeff/[facility] - numerous CTs, EGDs, upper GI series, x-rays, gastric emptying study (mild gastroparesis in 2024), blood work, porphyria work-up (twice), etc. Last office visit with [facility] GI advised initiation of pyridostigmine but she has been too ill since late February to start such. recheck urine culture at patient request, no growth. H. pylori testing negative x 2. CT A/P with mild hydronephrosis - discussed with urology, no surgical intervention, likely not cause of her pain. Consulted - recommend check PVR (this was 1) and OP follow up. - For acute pain - not ideal - but continue IV dilaudid prn. Did respond well to ativan IV, takes xanax at home - this is ordered - Zofran first line for nausea/emesis; phenergan low-dose for 2nd line use - Trial of bentyl for cramps, simethicone prn, continue antacids - GI consulted - H. pylori stool antigen - negative. Plan for EGD 04/04 - no acute process, bx negative for H. pylori. Mesenteric artery US without stenosis. Recommend outpatient follow-up with GI at [facility] Patient reports trying nortriptyline 25mg HS and made her too tired - unwilling to try lower dose Suspect functional abdominal pain component - however very difficult to discuss with this with patient, not receptive norovirus seems to be improving. Discussed pain management consult for possible trigger injections to right sided pain she was agreeable. Previously on gabapentin 200 mg twice daily, and pain was well-controlled on this subsequently she decreased it to 100 mg twice daily. As she is unwilling t o retry Cymbalta we will increase her nightly dose of gabapentin to 200 mg #Enterococcal vaginitis | Yeast infection | Chronic vaginal burning - enterococcal vaginitis identified 03/21/25 genital culture. Has had persistent vaginal burning for about 1 year. She has undergone numerous vaginal cultures and has been seen by gynecology. She denies any itching or discharge. She feels the burning sensation constantly, not only when she urinates. Completed 7 day course of Amoxicillin on 03/31. S/p Diflucan 150 mg PO x 1 for yeast infection - Trial hydrocortisone 1% topical ointment in the case that this is lichenoid vulvitis - patient reports improvement in the burning sensation - Recommend gynecology follow-up in outpatient setting as she was previously recommended to get a vulvar biopsy but has not yet done so Discussed with gynecology - if repeat culture needed does not need a speculum exam #Anemia - iron studies confirm iron deficiency anemia Venofer given 04/06, will order for 04/07 as well #GERD - Cont PPI twice daily, Carafate 1gm QID - H. pylori stool Ag negative 3x over the last year - including this admission #COVID-19 infection - 02/2025 - There are reports that COVID-19 can worsen pre-existing neurological conditions, GI conditions, etc. - Sounds as if her COVID indeed exacerbated her chronic GI issues #Hypothyroidism - TSH 3 - compensated. Continue levothyroxine #HTN - cont home meds #COPD - no exacerbation at this time. Albuterol prn VTE PPx: Lovenox - remote history of PE Dispo: Continued inpatient stay. 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 Did report that she had the left side pain overnight last night She states that Cymbalta did not work well for her but she is unsure why does not remember the side effects. We discussed starting nortriptyline at a lower dose but she was reluctant to do that. States that she recently had her gabapentin increased to 200 twice daily and was feeling well and then she decreased herself back down to 100 twice daily, she was agreeable to increase her evening dose of gabapentin to hopefully help her sleep Review of Systems Review of Systems: All systems reviewed & are unremarkable except as noted in Subjective Physical Exam Physical Exam: General: NAD, VS as above, much more calm than prior days Resp: normal respiratory effort, lungs clear to auscultation CV: RRR, no murmur, Abd: normal bowel sounds, soft, tenderness over the epigastric region. Back: no CVA tenderness Extremities: Moves all extremities, Neuro: A&O x3, Results & Data Results & Data Vital Signs (Past 12 Hours) Vital Signs Temp Pulse Resp BP Pulse Ox O2 Del Method 04/06/25 10:08 Room Air 04/06/25 08:43 97.7 F 70 18 147/76 H 98 Room Air Laboratory Results this H. pylori stool reviewed Iron studies reviewed Diagnostic Findings Mesenteric Doppler reviewed PG Care Time/CCT Total # of Minutes Spent Total Time Spent with Patient: Total time spent is greater than 50% in coordination of care (as documented) at patient's floor/unit and/or counseling patient: Coding Level of Care Code 95106 SUB INP/OBS CARE 2/35MIN Diagnoses Enteritis due to Norovirus A08.11 Acute exacerbation of chronic abdominal pain R10.9; G89.29 Gastroparesis K31.84 Nausea R11.0 History of COVID-19 Z86.16 Esophageal reflux K21.9 Vaginitis N76.0"
[2025-04-06] MEDS: GABAPENTIN 100 MG CAP PO SCH (20:39)
[2025-04-07] MEDS: IRON SUCROSE 300 MG in SODIUM CHLORIDE 0.9% 250 ML IV ONE (07:50)
[2025-04-07] MEDS: GABAPENTIN 100 MG CAP PO SCH (08:04)
--- NOTE | 2025-04-07 09:10 | Pain Management Consultation ---
Date of Consultation April 07, 2025 Assessment & Plan (1) Abdominal muscle pain: (2) Gastroparesis: (3) Enteritis due to Norovirus: (4) Acute exacerbation of chronic abdominal pain: (5) Abdominal pain, chronic, generalized: Plan I did offer the patient abdominal trigger point injections at today's visit. Risks and benefits were reviewed with the patient and she is understanding. She would like to proceed with the procedure. Please refer to procedure section for further details. TRIGGER POINT INJECTION Diagnosis: Myofascial Pain Injection Sites: Rectus abdominis muscle 1 site, left external intercostal muscle 2 sites, left external oblique muscle 1 site, right external intercostal muscle 1 site Medications Given: 7 mL 0.5% Ropivacaine MPF 2 mL Toradol 30mg/mL 1 mL Kenalog 40mg/mL Prior to starting, the diagnosis and the procedure was reviewed with the patient in detail. Possible risks and complications including infection, bleeding, damage to surrounding structures and increased pain were discussed. Alternative therapies were also reviewed. All questions were answered and they agreed to proceed. Informed consent was obtained. Allergies and medication list was reviewed. The patient was placed in sitting position. Immediately prior to starting the procedure, a time out was conducted with the staff and the patient where the patient was identified, proposed procedure was verified, consent was reviewed and the proper site for the planned procedure was identified. Patient was not given any intravenous sedation and constant verbal contact was maintained throughout the procedure. On examination, no signs of skin breakdown or infection were noted at the injection site. The site was cleansed with CloraPrep followed by alcohol. Sterile technique was used throughout the procedure. After identifying skeletal landmarks, 2 mL was injected into each site using a 25-gauge 1-1/2 inch needle. Aspiration was negative. Hemostasis noted. Patient tolerated the procedure uneventfully without complications. Patient was observed for approximately 15 minutes and discharged home with standard discharge instructions. History of Present Illness Attending Physician: Gina Miller MD History of Present Illness This is a 64-year-old female has been seen in consultation at the [facility] for acute abdominal pain. She has been thoroughly evaluated by GI locally as well as [facility]. 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 The pain is described as a constant ache aching along the epigastric region and a sharp stabbing pain radiating towards the right mid axillary region. Pain is aggravated with movement, twisting, bending forward. She does have nausea, vomiting, diarrhea associated. There is mild cramping along the lower abdomen. Pain is rated 8/10 currently. She has been receiving gabapentin 100 mg in the morning, 200 mg at bedtime, and fentanyl, Zofran, Phenergan, and as needed IV Dilaudid. She denies any radiation of pain towards the flanks or low back. Case discussed with Dr. Mary Kate Trejo Allergies Allergy/AdvReac Type Severity Reaction Status Date / Time bacitracin Allergy Intermediate Hives Verified 04/04/25 14:34 [From Neosporin ([id number])] famotidine Allergy Intermediate Hives Verified 04/04/25 14:34 neomycin Allergy Intermediate Hives Verified 04/04/25 14:34 [From Neosporin ([id number])] polymyxin B Allergy Intermediate Hives Verified 04/04/25 14:34 [From Neosporin ([id number])] lactose AdvReac Intermediate Gastrointestinal Verified 04/04/25 14:34 Upset olmesartan AdvReac Intermediate Diarrhea Verified 04/04/25 14:34 vilanterol AdvReac Intermediate Swelling Verified 04/04/25 14:34 [From Breo Ellipta] of legs/feet and GI Upset levofloxacin AdvReac Unknown tendinopathy Verified 04/04/25 14:34 - undetermined if med was cause. Home Medications Medication Instructions Recorded Confirmed Type levothyroxine 88 mcg tablet 88 mcg PO QAM 02/13/23 03/30/25 History budesonide-formoterol HFA 80 2 inh inhalation BID #30.59 grams 05/07/23 03/30/25 Rx mcg-4.5 mcg/actuation aerosol inhaler (Symbicort) cyclosporine 0.09 % eye drops in a 1 drp OPB BID 08/22/23 03/30/25 History dropperette (Cequa) propranolol 60 mg capsule,24 60 mg PO HS 10/15/24 03/30/25 History hr,extended release pantoprazole 40 mg tablet,delayed 40 mg PO BID #60 tabs 10/20/24 03/30/25 Rx release sucralfate 1 gram tablet 1 g PO QID #90 tabs 01/26/25 03/30/25 Rx bupropion HCl 150 mg tablet,12 hr 150 mg PO BID #60 ea 02/16/25 03/30/25 Rx sustained-release gabapentin 100 mg capsule 100 mg PO BID #60 caps 02/16/25 03/30/25 Rx hydromorphone 2 mg tablet 4 mg (2 x 2 mg) PO Q3RWA PRN pain 02/16/25 03/30/25 Rx (Dilaudid) #30 tabs pyridostigmine bromide 60 mg tablet 60 mg PO TID 03/01/25 03/30/25 History azelastine 137 mcg (0.1 %) nasal 1 spray intranasal BID PRN 03/05/25 03/30/25 History spray Congestion promethazine 25 mg tablet 25 - 50 mg (1 - 2 x 25 mg) PO Q6H 03/08/25 03/30/25 Rx PRN nausea and vomiting #20 tabs albuterol sulfate 90 mcg/actuation 1 inh inhalation Q4H PRN shortness 03/11/25 03/30/25 Rx aerosol inhaler of breath or wheezing #8.5 grams estradiol 0.01% (0.1 mg/gram) 1 g vaginal [id number] PRN NEEDED PER 03/24/25 03/30/25 History vaginal cream PT ondansetron 4 mg disintegrating 4 mg PO Q8H PRN nausea and 03/29/25 03/30/25 Rx tablet vomiting #20 tabs amoxicillin 500 mg capsule 500 mg PO TID 03/30/25 03/30/25 History Patient History Medical History Chronic anemia Chronic pain syndrome Intractable abdominal pain Acute exacerbation of chronic abdominal pain Anxiety and depression Primary hypothyroidism Essential hypertension Urinary tract infection abx completed 06/28 or 06/30/23 - feeling better, all symptoms gone except some pressure. Pre op edu rev. Diverticulosis hx Gastritis History of gastric polyp History of colon polyps Vertigo none for over a month Kidney stones current Renal mass [place] [facility] aware, monitoring Paresthesia of upper extremity sometimes arms Diarrhea current : on occ /finished abx recently. History of Helicobacter pylori infection Hx of Clostridium difficile infection Remote hx approximately 30 years ago History of COVID-19 03/19/2023 ([place], [place]) > resolved 11/2021- fatigue, congestion, cough, sore throat > resolved pt reports has had a total of 3 times : 1st time in 2019 ? Hx of melanoma of skin Pulmonary embolism Remote hx approximately 30 years ago, after SUMAN (blood thinners x 3 months) Acute diverticulitis listed in differential diagnosis 04/14/23 by hospitalist, not included on discharge summary Sciatica hx COPD (chronic obstructive pulmonary disease) well controlled per pt, rare res inh use Mild reactive airways disease Depression with anxiety Esophageal reflux Fibromyalgia Hypertension Irritable bowel syndrome Hypothyroidism Hyperlipidemia History of asthma Surgical History History of lithotripsy History of cystoscopy Hx of vascular surgery Dr Morales [facility] 07/2022 Distal LT GSV accessed under ultrasound guidance with placement of 4Fr sheath History of esophagogastroduodenoscopy (EGD) Hx of cataract extraction Hx of melanoma excision stomach S/P dilation and curettage History of cryosurgery History of colonoscopy (10/12/19) 4 polyps removed, [facility], Dr. Roque S/P tonsillectomy S/P sinus surgery S/P SUMAN-BSO S/P laparoscopic cholecystectomy S/P appendectomy Family History Mother Diabetes Father Heart disease Other Asthma Cancer Gallbladder disease Hypertension Stroke Denies family history of Ovarian cancer Myocardial infarction Breast cancer Colorectal cancer Colonic polyp Uterine cancer Social History Smoking Status: Former smoker Tobacco Type: Cigarettes Age Started Using Tobacco: 18; Age Quit Using Tobacco: 58; Second Hand Exposure: No; Do You Dip or Chew Tobacco: No; Hx Alcohol Use: No Hx Substance Use: No Preferred Language: Croatian Communication Ability: Effective Visual Impairment: No Limitations Hearing Ability: Normal Web Administrator Required: No Beliefs That Will Affect Care: None marital status: Current Living Situation: Spouse Current Living Situation Comment: [facility] current occupational status: disabled Feels Safe at Home: Yes Childhood Exposure to Second-Hand Smoke: Yes Dental Care, Regularly: Yes Seatbelt Use: always Sunscreen Use: Yes Do you think of yourself as: straight/heterosexual Sexual Activity: has been sexually active within the last 12 months Assistive Devices: Cane and Walker Physical Exam Physical Exam: GENERAL: This is a 64-year-old female in no acute distress. She is sitting comfortably in the hospital bed. HEAD/FACE: Normocephalic and atraumatic. EYES: No drainage or conjunctival injection. ENT: Nose without bleeding or discharge. Oral mucosa moist. NECK: Full ROM without apparent pain. No swelling or masses noted. RESPIRATORY: Patient with unlabored breathing. No signs of respiratory distress. CHEST/AXILLA: Chest movement symmetrical. No deformities noted. CARDIOVASCULAR: Patients heart rate is regular, with pulse rate as documented. No edema noted. ABDOMEN/GI: No distension. There is exquisite tenderness along the epigastric region and along the right greater than left upper abdomen. BACK: Moves without difficulty SKIN: [place], warm and dry. No rash noted. MS/EXTREMITY: No swelling, no deformities. Moving extremities appropriately. NEURO: Alert and appears oriented. Speech is fluent. Cranial Nerves are grossly intact. PSYCH: Alert, pleasant, affect is calm
--- NOTE | 2025-04-07 11:35 | Hospitalist Progress Note ---
"Date of Service April 07, 2025 Assessment & Plan (1) Enteritis due to Norovirus: (2) Acute exacerbation of chronic abdominal pain: (3) Gastroparesis: (4) Nausea: (5) History of COVID-19: (6) Esophageal reflux: (7) Vaginitis: Plan 64yo female with chronic abdominal pain and gastroparesis - followed by [facility] - presents with 2-3 days of severe acute on chronic upper abdominal pain along with nausea on 03/30/2025. #Norovirus enteritis | Acute on chronic abdominal pain | Gastroparesis Acute component 2nd to Norovirus infection that was diagnosed from biofire on 03/28. Chronic component - to date has had EXTENSIVE evaluation by Alok Jeff/[facility] - numerous CTs, EGDs, upper GI series, x- rays, gastric emptying study (mild gastroparesis in 2024), blood work, porphyria work-up (twice), etc. Last office visit with [facility] GI advised initiation of pyridostigmine but she has been too ill since late February to start such. Suspect functional abdominal pain component but difficult to discuss w/ patient, not receptive. Urology consulted at patient request secondary to CTAP w/ mild hydronephrosis. Recommended PVR which was 1 & outpatient follow up. GI consulted - H pylori negative x 2. EGD on 04/04, no acute process. Bx negative. Mesenteric artery US w/o stenosis. Rec outpatient follow up w/ GI @ [facility]. Pain management consulted - s/p trigger point injections on 04/07. Pt requested neurology consult for abdominal pain, defer to outpatient at this time. Refusing to try nortriptyline at lower dose. For N/V: Zofran 1st line; Phenergan 2nd line For Pain: IV Dilaudid prn, responding well to benzos, Xanax prn. -->will attempt to wean off Dilaudid starting 04/08. Continue Gabapentin at dose of 100mg AM & 200mg HS. On full liquid diet, advance as tolerated. #Enterococcal vaginitis | Yeast infection | Chronic vaginal burning She has undergone numerous vaginal cultures and has been seen by gynecology Has had persistent vaginal burning for about 1 year. . She denies any itching or discharge. She feels the burning sensation constantly, not only when she urinates. enterococcal vaginitis identified 03/21/25 genital culture. Completed 7 day course of Amoxicillin on 03/31. 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 pylori stool Ag negative 3x over the last year - including this admission #COVID-19 infection - 02/2025 There are reports that COVID-19 can worsen pre-existing neurological conditions, GI conditions, etc. Sounds as if her COVID indeed exacerbated her chronic GI issues #Hypothyroidism - TSH 3 - compensated. Continue levothyroxine #HTN - cont home meds #COPD - no exacerbation at this time. Albuterol prn VTE PPx: Lovenox - remote history of PE Code: FUll Follow up on discharge: GI - [facility], urology, [employer], neuro Admission and Anticipated Discharge Date Admission Date: March 30, 2025 Matt Billings was seen & examined this morning. She reports still having ongoing abdominal pain that is a 6-7/10. Reports nausea but no vomiting. States she did receive injections with pain management this morning. Physical Exam Physical Exam: General: NAD, VS: BP 148/81; P69; R18; T36.7C Resp: normal respiratory effort Abd: soft, tenderness to palpation generalized, + bowel sounds Extremities: Moves all extremities, no edema Neuro: A&O x3, Skin: intact, no lesions noted Results & Data Results & Data Vital Signs (Past 12 Hours) Vital Signs Temp Pulse Resp BP Pulse Ox O2 Del Method 04/07/25 07:27 36.7 C 69 18 148/81 H 97 Room Air PG Care Time/CCT Total # of Minutes Spent Total Time Spent with Patient: Total time spent is greater than 50% in coordination of care (as documented) at patient's floor/unit and/or counseling patient: Coding Level of Care Code 35275 SUB INP/OBS CARE 2/35MIN Diagnoses Enteritis due to Norovirus A08.11 Acute exacerbation of chronic abdominal pain R10.9; G89.29 Gastroparesis K31.84 Nausea R11.0 History of COVID-19 Z86.16 Esophageal reflux K21.9 Vaginitis N76.0"
[2025-04-08] MEDS ORDERED: KETOROLAC TROMETHAMINE 15 MG/ML VIAL IV PRN (09:44)
--- NOTE | 2025-04-08 12:23 | Discharge Summary ---
Discharge Summary Date of Service April 08, 2025 Principal Dx & Hospital Course #1 = Principal Diagnosis (1) Enteritis due to Norovirus: (2) Acute exacerbation of chronic abdominal pain: (3) Gastroparesis: (4) Nausea: (5) History of COVID-19: (6) Esophageal reflux: (7) Vaginitis: Plan 64yo female with chronic abdominal pain and gastroparesis - followed by [facility], operated by [facility] - presents with 2-3 days of severe acute on chronic upper abdominal pain along with nausea on 03/30/2025. #Norovirus enteritis | Acute on chronic abdominal pain | Gastroparesis Acute component 2nd to Norovirus infection that was diagnosed from biofire on 03/28. Chronic component - to date has had EXTENSIVE evaluation by [facility], operated by [facility] - numerous CTs, EGDs, upper GI series, x- rays, gastric emptying study (mild gastroparesis in 2024), blood work, porphyria work-up (twice), etc. Last office visit with [facility] GI advised initiation of pyridostigmine but she has been too ill since late February to start such. Suspect functional abdominal pain component but difficult to discuss w/ patient, not receptive. Urology consulted at patient request secondary to CTAP w/ mild hydronephrosis. Recommended PVR which was 1 & outpatient follow up. GI consulted - H pylori negative x 2. EGD on 04/04, no acute process. Bx negative. Mesenteric artery US w/o stenosis. Rec outpatient follow up w/ GI @ [facility]. Pain management consulted - s/p trigger point injections on 04/07. Pt requested neurology consult for abdominal pain, defer to outpatient at this time. Refusing to try nortriptyline at lower dose. On outpatient basis, continue Phenergan prn for N/V. For pain, can continue PO Diluadid, can trial Tylenol, Lidocaine patch, Icy hot etc. Per pt she does not prefer NSAIDs but would be open to a trial of PO Toradol, rx sent on discharge. Continue Gabapentin at dose of 100mg AM & 200mg HS. At time of discharge, patient appeared comfortable in bed. Was still complaining of abdominal pain but is able to intake food appropriately without vomiting. At this time, from an inpatient standpoint she has had a thorough workup. Discussed with her to get in contact with her statement clerks supervisor at [facility] for further recommendations. #Enterococcal vaginitis | Yeast infection | Chronic vaginal burning She has undergone numerous vaginal cultures and has been seen by gynecology Has had persistent vaginal burning for about 1 year. . She denies any itching or discharge. She feels the burning sensation constantly, not only when she urinates. enterococcal vaginitis identified 03/21/25 genital culture. Completed 7 day course of Amoxicillin on 03/31. 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 pylori stool Ag negative 3x over the last year - including this admission #COVID-19 infection - 02/2025 There are reports that COVID-19 can worsen pre-existing neurological conditions, GI conditions, etc. Sounds as if her COVID indeed exacerbated her chronic GI issues #Hypothyroidism - TSH 3 - compensated. Continue levothyroxine #HTN - cont home meds #COPD - no exacerbation at this time. Albuterol prn Patient discharged home 04/08 Admission HPI Per Admitting Provider 64yo female with chronic abdominal pain and gastroparesis - followed by [facility], operated by [facility] - presents with 2-3 days of severe acute on chronic upper abdominal pain along with nausea. On 03/28 a stool BioFire was positive for Norovirus. Overnight last night she had numerous soft/loose stools - was essentially up all night in the bathroom. No fevers. During my assessment she was very tearful due to the pain in her abdomen. She has had poor PO intake the last few days because of her pain. She was prescribed dilaudid to be used prn for her abdominal pain in February, and this was refilled in early March. She has taken if off/on but in the last 1-2 days was nervous to take it for fear it might make her symptoms worse. A review of her record shows multiple ER visits over the last month for abdominal pain, back pain, nausea, vaginal symptoms, etc. She also had COVID in February. She reports that she had no fever or respiratory symptoms from her COVID but had acute worsening of her chronic abdominal symptoms with that illness. She did see [facility], operated by [facility] in February and at that time they wanted to perform a bowel prep followed by initiation of pyridostigmine for her chronic gastroparesis but she never started such due to recurrent illness. Discharge Exam General: NAD, VS: BP 142/76; P68; R18; T36.7C Resp: normal respiratory effort Extremities: Moves all extremities, no edema Neuro: A&O x3 Skin: intact, no lesions noted Discharge Plan Discharge Items Patient Disposition: Home - Self-Care Reason For Visit: NOROVIRUS ENTERITIS; ACUTE/CHRONIC ABDOMINAL PAIN Discharge Diagnosis: Norovirus; Acute on chronic abdominal pain. Condition on Discharge: Fair Activity: Resume your previous activity Non-emergency contact: Primary Care Provider Call non-emergency contact if: you have any medication questions, your symptoms worsen and your pain is unusual for you Follow-up/Referrals: Frandy Roy MD, [facility] [Physician] - La Nena Garrett MD [Primary Care Provider] - (PATIENT WILL CALL PCP TO MAKE A HOSPITAL FOLLOW UP IN 7-10 DAYS.) Kevin Manzo MD [Physician] - Devin Schmitz MD [Physician] - Javi Freire MD [Physician] - Diet: Regular Addtl Attending Provider Instructions: Mrs. Everett, Justus were recently hospitalized secondary to acute worsening of your chronic abdominal pain. You were also found to have norovirus which was treated with supportive care. You have had an extensive workup inpatient that has been unremarkable. At this time, we recommend that you follow up with [facility] with the results from your hospitalization for ongoing care. A copy of your hospital stay has been given to you at time of discharge. Medications: Your medication list has been reviewed and reconciled upon discharge to ensure accuracy and continuity of care. An updated list of all your medications is included with your hospital discharge paperwork. Please review this list closely, and make note of any changes. You may use Phenergan every 6 hours as needed for nausea or vomiting. You may use your previously prescribed Diluadid which is prescribed to you 4mg every 3 hours as needed for abdominal pain. Other options to use help relieve pain including: Oral Toradol every 6 hours which has been prescribed to you, Tylenol 1000mg every 8 hours as needed. You may try an over the counter lidocaine patch 12 hours on 12 hours off; icy hot as needed. Take your medications as instructed; do not skip a dose of your medicines. Make sure all of your doctors know every medicine you are taking (including qqax-zle-akzmesa medicines, vitamins, and supplements). Call your primary care provider before taking any new medicines (including over- the-counter medicines, vitamins, and supplements), because some of these may interact with your current medications, or may make your symptoms worse. Tell your primary care provider if you cannot afford your medications. Activity: You can do normal everyday activities as your body allows. Take rest breaks if you feel tired. Do not overexert. Stop activity if you have pain, shortness of breath or feel dizzy. Follow-up appointments: Make an appointment with your primary care physician within one week of discharge. A copy of this summary will be sent to them. Every time you see your primary care physician, or any other doctor, bring your medication list, and a list of questions. Please contact your PCP and your statement clerks supervisor on 04/10 to make them aware of your recent hospitalization. CONTACT YOUR PRIMARY CARE PROVIDER if you experience any of the following: Shortness of breath or difficulty breathing Fevers or chills Feeling tired with normal activity or experiencing dizziness or fainting Difficulty following your treatment plan, or difficulty taking medications CALL 911 OR GO TO THE EMERGENCY DEPARTMENT if you experience any of the following: Severe abdominal pain or nausea/vomiting Severe chest pain, or chest pain that radiates (moves) to your jaw or arm Sudden, severe shortness of breath or difficulty breathing Thank you for allowing us to participate in your care. Pending Studies at Discharge: No Stand-Alone Forms: [facility] Smoking Cessation Medications and DC Order Prescriptions: New ketorolac 10 mg tablet 10 mg PO Q6H Qty: 14 0RF promethazine 25 mg tablet 25 mg PO Q6H PRN (Reason: nausea and vomiting) Qty: 30 0RF Continued budesonide-formoterol [Symbicort] 80-4.5 mcg/actuation HFA aerosol inhaler 2 inh inhalation BID Qty: 30.59 3RF Hold Instructions: Gastritis Rx Instructions: INHALE 2 PUFFS INTO THE LUNGS TWICE A DAY ondansetron 4 mg tablet,disintegrating 4 mg PO Q8H PRN (Reason: nausea and vomiting) Qty: 20 0RF pyridostigmine bromide 60 mg tablet 60 mg PO TID Rx Instructions: PER PT "HAVE NOT STARTED" 03/24/25 azelastine 137 mcg (0.1 %) spray,non-aerosol 1 spray intranasal BID PRN (Reason: Congestion) levothyroxine 88 mcg tablet 88 mcg PO QAM albuterol sulfate 90 mcg/actuation HFA aerosol inhaler 1 inh inhalation Q4H PRN (Reason: shortness of breath or wheezing) Qty: 8.5 0RF estradiol 0.01 % (0.1 mg/gram) cream 1 g VAGINAL 3XWK PRN (Reason: NEEDED PER PT) Rx Instructions: Mon/Wed/Fri Cequa 0.09 % dropperette 1 drp OPB BID propranolol 60 mg capsule,extended release 24 hr 60 mg PO HS pantoprazole 40 mg Tablet,Delayed Release (Dr/Ec) 40 mg PO BID Qty: 60 0RF sucralfate 1 gram Tablet 1 g PO QID Qty: 90 0RF bupropion HCl 150 mg Tablet Sustained-Release 12 Hr 150 mg PO BID Qty: 60 0RF hydromorphone [Dilaudid] 2 mg Tablet 4 mg PO Q3RWA PRN (Reason: pain) Qty: 30 0RF gabapentin 100 mg Capsule 100 mg PO BID Qty: 60 0RF Discontinued promethazine 25 mg tablet 25 - 50 mg PO Q6H PRN (Reason: nausea and vomiting) Qty: 20 0RF amoxicillin 500 mg capsule 500 mg PO TID Rx Instructions: STARTED 03/24/25 FOR 7 DAYS Discharge Orders: Discharge Order (Routine); Ordered 04/08/25 Ordered By: Vanessa Rutledge Admission Data Admit Date/Time: 03/30/25 16:11 Attending Provider: Gina Miller Admit Provider: Ubaldo Chi Primary Care Provider: La Nena Garrett Other Providers: Ubaldo Chi; Javi Freire I; Devin Schmitz; Frandy Roy Other Interventions: Discharge Summary Assessment (RN) Last Done: 04/08/25 13:18 Hospital Stay Data Consultations 03/30/25 15:37 ED Decision to Admit Stat 04/01/25 18:57 Consult Gastroenterology Routine 04/04/25 12:26 Consult Urology Routine 04/06/25 11:20 Consult Pain Management Routine Procedures Performed Operation Date: 04/04/25 16:30 Actual Procedures p EGD Biopsy Cytology - Javi Freire MD Diagnostic Imagining Performed 04/03/25 13:07 CT Abd and Pelvis [CT abd pelvis oral and IV con] Routine 04/05/25 08:18 US duplex mesenteric Routine Pending Results Patient Have Any Pending Studies at Discharge: No Discharge Instructions Given to Patient (Per Discharging Provider) Mrs. Everett, Justus were recently hospitalized secondary to acute worsening of your chronic abdominal pain. You were also found to have norovirus which was treated with supportive care. You have had an extensive workup inpatient that has been unremarkable. At this time, we recommend that you follow up with [facility] with the results from your hospitalization for ongoing care. A copy of your hospital stay has been given to you at time of discharge. Medications: Your medication list has been reviewed and reconciled upon discharge to ensure accuracy and continuity of care. An updated list of all your medications is included with your hospital discharge paperwork. Please review this list closely, and make note of any changes. You may use Phenergan every 6 hours as needed for nausea or vomiting. You may use your previously prescribed Diluadid which is prescribed to you 4mg every 3 hours as needed for abdominal pain. Other options to use help relieve pain including: Oral Toradol every 6 hours which has been prescribed to you, Tylenol 1000mg every 8 hours as needed. You may try an over the counter lidocaine patch 12 hours on 12 hours off; icy hot as needed. Take your medications as instructed; do not skip a dose of your medicines. Make sure all of your doctors know every medicine you are taking (including lgmu-pei-lfhbmwe medicines, vitamins, and supplements). Call your primary care provider before taking any new medicines (including over- the-counter medicines, vitamins, and supplements), because some of these may interact with your current medications, or may make your symptoms worse. Tell your primary care provider if you cannot afford your medications. Activity: You can do normal everyday activities as your body allows. Take rest breaks if you feel tired. Do not overexert. Stop activity if you have pain, shortness of breath or feel dizzy. Follow-up appointments: Make an appointment with your primary care physician within one week of discharge. A copy of this summary will be sent to them. Every time you see your primary care physician, or any other doctor, bring your medication list, and a list of questions. Please contact your PCP and your statement clerks supervisor on 04/10 to make them aware of your recent hospitalization. CONTACT YOUR PRIMARY CARE PROVIDER if you experience any of the following: Shortness of breath or difficulty breathing Fevers or chills Feeling tired with normal activity or experiencing dizziness or fainting Difficulty following your treatment plan, or difficulty taking medications CALL 911 OR GO TO THE EMERGENCY DEPARTMENT if you experience any of the following: Severe abdominal pain or nausea/vomiting Severe chest pain, or chest pain that radiates (moves) to your jaw or arm Sudden, severe shortness of breath or difficulty breathing Thank you for allowing us to participate in your care. Total Time Total Time Spent Total Time Spent (In Minutes): 50 Total Time Includes: Examination of the Patient, Discharge Planning and Medication Reconciliation Coding Level of Care Code 58735 INP/OBS DISCH >30 MIN Diagnoses Enteritis due to Norovirus A08.11 Acute exacerbation of chronic abdominal pain R10.9; G89.29 Gastroparesis K31.84 Nausea R11.0 History of COVID-19 Z86.16 Esophageal reflux K21.9 Vaginitis N76.0
[2025-04-08 13:03] VITALS: RESP 18; TEMP 98.1; O2SAT 98
[2025-04-08 13:20] VITALS: BP 139/63; PULSE 58
== END 2025-04-08 14:01 | disposition home or self-care (01) | DRG 391 ==
LOC: ED 11:27 → SUATTDRO 16:11 → 2N 16:11 → 3E 04-03 20:46